=== PATIENT | male | born 1960 | race Caucasian/White ===

== ENCOUNTER 2017-10-03 15:42 | Emergency (ER) | payer OTHER ==
[2017-10-03] MEDS ORDERED: ROCURONIUM BROMIDE 50 MG/5 ML VIAL (15:43)
[2017-10-03] MEDS ORDERED: LIDOCAINE 2% INJ 100 MG/5 ML SYRINGE (15:43)
[2017-10-03] MEDS ORDERED: ETOMIDATE INJ 20MG/10ML VIAL (15:43)
[2017-10-03] MEDS ORDERED: SUCCINYLCHOLINE 100 MG/5 ML SYRINGE (J0330) (15:43)
[2017-10-03 16:00] LABS: BASO # 0.1 10^3/uL (0.0-0.2); BASO % 0.7 % (0.0-1.0); EOS % 0.2 % (0.0-3.0); HEMATOCRIT 44.4 % (42.0-52.0); HEMOGLOBIN 14.7 g/dl (13.5-17.5); IMMATURE GRANULOCYTE % 1.8 % (0-3.0); LYMPH # 1.6 10^3/uL (1.5-4.5); LYMPH % 13.2 % (24.0-44.0); MEAN CORPUSCULAR HEMOGLOBIN 31.7 pg (27.0-33.0); MEAN CORPUSCULAR HGB CONC 33.1 g/dl (32.0-36.5); MEAN CORPUSCULAR VOLUME 95.7 fl (80.0-96.0); MONO # 1.3 10^3/uL (0.0-0.8); MONO % 10.8 % (0.0-5.0); NEUTROPHILS # 8.9 10^3/uL (1.8-7.7); NEUTROPHILS % 73.3 % (36.0-66.0); PLATELET COUNT, AUTOMATED 502 10^3/uL (150-450); RED BLOOD COUNT 4.64 10^6/uL (4.30-6.10); RED CELL DISTRIBUTION WIDTH 13.1 % (11.5-14.5); WHITE BLOOD COUNT 12.2 10^3/uL (4.0-10.0)
[2017-10-03] MEDS: LORazepam 2 MG/ML VIAL (J2060) IV (16:04)
[2017-10-03] MEDS: PHENYTOIN INJ 250 MG/5 ML VIAL (J1165) IV (16:07)
[2017-10-03 16:16] LABS: BEDSIDE GLUCOSE 235 MG/DL (70-105)
[2017-10-03 16:22] LABS: INR 1.05; PARTIAL THROMBOPLASTIN TIME 24.4 SECONDS (25.4-37.6); PROTHROMBIN TIME 13.8 SECONDS (12.1-14.4)
[2017-10-03 16:23] LABS: ABG BASE EXCESS -7.6 (-2.0-2.0); ABG HCO3 15.9 MEQ/L (22.0-26.0); ABG O2 SATURATION 97.4 % (95.0-99.0); ABG PARTIAL PRESSURE CO2 27.7 mmHg (35.0-45.0); ABG STANDARD HCO3 18.4 MEQ/L (22.0-26.0); ABG TOTAL CO2 16.8 MEQ/L (22.0-29.0); ABG pH (ARTERIAL) 7.377 UNITS (7.350-7.450)
[2017-10-03 16:26] LABS: ALBUMIN 3.8 GM/DL (3.2-5.2); ALBUMIN/GLOBULIN RATIO 0.84 (1.00-1.93); ALKALINE PHOSPHATASE 123 U/L (45-117); ALT/SGPT 54 U/L (12-78); ANION GAP 27 MEQ/L (8-16); AST/SGOT 33 U/L (7-37); BILIRUBIN,DIRECT 0.5 MG/DL (0.0-0.2); BILIRUBIN,TOTAL 1.3 MG/DL (0.2-1.0); BLOOD UREA NITROGEN 30 MG/DL (7-18); CALCIUM LEVEL 10.5 MG/DL (8.5-10.1); CARBON DIOXIDE LEVEL 16 MEQ/L (21-32); CHLORIDE LEVEL 98 MEQ/L (98-107); CREATININE FOR GFR 1.57 MG/DL (0.70-1.30); ETHYL ALCOHOL (ETHANOL) < 0.003 % (0.000-0.010); GLOMERULAR FILTRATION RATE 49.3 (>56); GLUCOSE, FASTING 236 MG/DL (70-100); MAGNESIUM LEVEL 2.3 MG/DL (1.8-2.4); POTASSIUM SERUM 3.3 MEQ/L (3.5-5.1); SODIUM LEVEL 141 MEQ/L (136-145); TOTAL PROTEIN 8.3 GM/DL (6.4-8.2)
[2017-10-03 16:38] LABS: SALICYLATE LEVEL < 1.7 MG/DL (5.0-30.0)
[2017-10-03 16:39] LABS: ACETAMINOPHEN LEVEL < 2.0 UG/ML (10.0-30.0)
[2017-10-03] MEDS: ETOMIDATE INJ 20MG/10ML VIAL IV (16:40)
[2017-10-03] MEDS: LIDOCAINE 2% INJ 100 MG/5 ML SYRINGE IV (16:40)
[2017-10-03 16:41] LABS: APPEARANCE, URINE HAZY (CLEAR); BACTERIA, URINE AUTO NEGATIVE (NEGATIVE); BILIRUBIN, URINE AUTO NEGATIVE (NEGATIVE); BLOOD, URINE BLOOD 1+ (NEGATIVE); COLOR, URINE AMBER (YELLOW); GLUCOSE, URINE (UA) AUTO 1+ mg/dL (NEGATIVE); KETONE, URINE AUTO 1+ mg/dL (NEGATIVE); LEUKOCYTE ESTERASE, URINE AUTO NEGATIVE (NEGATIVE); MUCUS, URINE LARGE (NEGATIVE); NITRITE, URINE AUTO NEGATIVE (NEGATIVE); PROTEIN, URINE AUTO 2+ mg/dL (NEGATIVE); RBC, URINE AUTO 3 /HPF (0-3); SPECIFIC GRAVITY URINE AUTO 1.028 (1.002-1.035); SQUAMOUS EPITHELIAL CELL UR AU 0 /HPF (0-6); WBC, URINE AUTO 8 /HPF (0-3)
[2017-10-03] MEDS: SUCCINYLCHOLINE INJ 200 MG/10 ML VIAL (J0330) IV (16:41)
[2017-10-03 16:44] LABS: LACTIC ACID SEPSIS PROTOCOL 18.3 MMOL/L (0.4-2.0)
[2017-10-03] MEDS ORDERED: ROCURONIUM BROMIDE 50 MG/5 ML VIAL IV (16:45)
[2017-10-03 16:49] LABS: AMPHETAMINES LEVEL URINE NEGATIVE (NEGATIVE); BARBITURATES URINE NEGATIVE (NEGATIVE); BENZODIAZEPINES URINE NEGATIVE (NEGATIVE); CANNABINOIDS URINE NEGATIVE (NEGATIVE); COCAINE METABOLITE URINE NEGATIVE (NEGATIVE); METHADONE URINE NEGATIVE (NEGATIVE); OPIATES URINE NEGATIVE (NEGATIVE); PHENCYCLIDINE URINE NEGATIVE (NEGATIVE)
[2017-10-03] MEDS: NS 1,000 ML IV (17:00)
[2017-10-03 17:03] LABS: CPK CREATINE PHOSPHOKINASE 36 U/L (39-308)
[2017-10-03] MEDS: PROPOFOL 1,000 MG in APPROPRIATE DILUENT 1 EA IV (17:17)
[2017-10-03 17:56] LABS: ABG BASE EXCESS 3.6 (-2.0-2.0); ABG HCO3 24.5 MEQ/L (22.0-26.0); ABG O2 SATURATION 98.1 % (95.0-99.0); ABG PARTIAL PRESSURE O2 92.2 mmHg (75.0-100.0); ABG STANDARD HCO3 27.7 MEQ/L (22.0-26.0); ABG TOTAL CO2 25.3 MEQ/L (22.0-29.0); ABG pH (ARTERIAL) 7.575 UNITS (7.350-7.450)
== END 2017-10-03 18:18 | disposition short-term general hospital (02) ==
LOC: M ED 15:42
DX: S06.5X9A Traumatic subdural hemorrhage with loss of consciousness of unspecified duration, initial encounter (principal); S02.19XA Other fracture of base of skull, initial encounter for closed fracture; G40.319 Generalized idiopathic epilepsy and epileptic syndromes, intractable, without status epilepticus; X58.XXXA Exposure to other specified factors, initial encounter; Y92.89 Other specified places as the place of occurrence of the external cause; R00.0 Tachycardia, unspecified; F10.20 Alcohol dependence, uncomplicated; F32.9 Major depressive disorder, single episode, unspecified; F17.200 Nicotine dependence, unspecified, uncomplicated; Z79.899 Other long term (current) drug therapy
CPT/HCPCS: J0330

== ENCOUNTER 2017-10-09 17:30 | Inpatient (IN) | payer OTHER ==
[2017-10-09] MEDS ORDERED: LORazepam 2 MG TAB PO (17:45)
[2017-10-09 18:14] LABS: BASO # 0.1 10^3/uL (0.0-0.2); BASO % 1.2 % (0.0-1.0); EOS # 0.1 10^3/uL (0.0-0.50); EOS % 1.4 % (0.0-3.0); HEMATOCRIT 37.8 % (42.0-52.0); HEMOGLOBIN 12.7 g/dl (13.5-17.5); IMMATURE GRANULOCYTE % 3.9 % (0-3.0); LYMPH # 1.3 10^3/uL (1.5-4.5); LYMPH % 14.9 % (24.0-44.0); MEAN CORPUSCULAR HEMOGLOBIN 31.4 pg (27.0-33.0); MEAN CORPUSCULAR HGB CONC 33.6 g/dl (32.0-36.5); MEAN CORPUSCULAR VOLUME 93.3 fl (80.0-96.0); MONO # 0.6 10^3/uL (0.0-0.8); MONO % 7.2 % (0.0-5.0); NEUTROPHILS % 71.4 % (36.0-66.0); PLATELET COUNT, AUTOMATED 452 10^3/uL (150-450); RED BLOOD COUNT 4.05 10^6/uL (4.30-6.10); RED CELL DISTRIBUTION WIDTH 13.3 % (11.5-14.5); WHITE BLOOD COUNT 8.4 10^3/uL (4.0-10.0)
[2017-10-09] MEDS: THIAMINE 100 MG TAB PO (18:26)
[2017-10-09 18:37] LABS: ALBUMIN 2.9 GM/DL (3.2-5.2); ALBUMIN/GLOBULIN RATIO 0.73 (1.00-1.93); ALKALINE PHOSPHATASE 106 U/L (45-117); ALT/SGPT 38 U/L (12-78); ANION GAP 9 MEQ/L (8-16); AST/SGOT 35 U/L (7-37); BILIRUBIN,TOTAL 0.4 MG/DL (0.2-1.0); BLOOD UREA NITROGEN 14 MG/DL (7-18); CALCIUM LEVEL 9.3 MG/DL (8.5-10.1); CARBON DIOXIDE LEVEL 27 MEQ/L (21-32); CHLORIDE LEVEL 100 MEQ/L (98-107); CREATININE FOR GFR 0.83 MG/DL (0.70-1.30); GLOMERULAR FILTRATION RATE > 60.0 (>56); GLUCOSE, FASTING 89 MG/DL (70-100); POTASSIUM SERUM 4.8 MEQ/L (3.5-5.1); SODIUM LEVEL 136 MEQ/L (136-145); TOTAL PROTEIN 6.9 GM/DL (6.4-8.2)
[2017-10-09] MEDS: OXAZEPAM 10 MG CAP PO (21:43)
[2017-10-09] MEDS ORDERED: SODIUM CHLORIDE 0.9% INJ 10 ML SYR IV (23:00)
[2017-10-10] MEDS: SODIUM CHLORIDE 0.9% INJ 10 ML SYR IV ×2 (06:00→16:44)
[2017-10-10 06:24] LABS: BASO # 0.1 10^3/uL (0.0-0.2); EOS # 0.1 10^3/uL (0.0-0.50); EOS % 1.4 % (0.0-3.0); HEMATOCRIT 36.1 % (42.0-52.0); HEMOGLOBIN 12.2 g/dl (13.5-17.5); IMMATURE GRANULOCYTE % 4.3 % (0-3.0); LYMPH # 0.9 10^3/uL (1.5-4.5); LYMPH % 12.2 % (24.0-44.0); MEAN CORPUSCULAR HEMOGLOBIN 30.8 pg (27.0-33.0); MEAN CORPUSCULAR HGB CONC 33.8 g/dl (32.0-36.5); MEAN CORPUSCULAR VOLUME 91.2 fl (80.0-96.0); MONO # 0.5 10^3/uL (0.0-0.8); MONO % 7.1 % (0.0-5.0); NEUTROPHILS # 5.6 10^3/uL (1.8-7.7); PLATELET COUNT, AUTOMATED 386 10^3/uL (150-450); RED BLOOD COUNT 3.96 10^6/uL (4.30-6.10); RED CELL DISTRIBUTION WIDTH 13.2 % (11.5-14.5); WHITE BLOOD COUNT 7.6 10^3/uL (4.0-10.0)
[2017-10-10 06:49] LABS: ALBUMIN 2.9 GM/DL (3.2-5.2); ALBUMIN/GLOBULIN RATIO 0.73 (1.00-1.93); ALKALINE PHOSPHATASE 106 U/L (45-117); ALT/SGPT 37 U/L (12-78); ANION GAP 10 MEQ/L (8-16); AST/SGOT 35 U/L (7-37); BILIRUBIN,TOTAL 0.5 MG/DL (0.2-1.0); BLOOD UREA NITROGEN 14 MG/DL (7-18); CALCIUM LEVEL 9.2 MG/DL (8.5-10.1); CARBON DIOXIDE LEVEL 26 MEQ/L (21-32); CHLORIDE LEVEL 99 MEQ/L (98-107); GLOMERULAR FILTRATION RATE > 60.0 (>56); GLUCOSE, FASTING 102 MG/DL (70-100); POTASSIUM SERUM 4.2 MEQ/L (3.5-5.1); SODIUM LEVEL 135 MEQ/L (136-145); TOTAL PROTEIN 6.9 GM/DL (6.4-8.2)
[2017-10-10] MEDS ORDERED: levETIRAcetam INJection 1,000 MG in D5W 100 ML IV (09:00)
[2017-10-10] MEDS: OXAZEPAM 10 MG CAP PO ×3 (09:19→21:14)
[2017-10-10] MEDS: MULTIVITAMINS/MINERALS THERAP 1 TAB PO (09:19)
[2017-10-10] MEDS: FOLIC ACID 1 MG TAB PO (09:19)
[2017-10-10] MEDS: amLODIPine 10 MG TAB PO (09:19)
[2017-10-10] MEDS: VALPROIC ACID SYRUP 250 MG/5 ML UDC PO ×2 (09:20→21:23)
[2017-10-10] MEDS: TOPIRAMATE (TopAMAX) 25 MG TAB PO ×2 (09:20→21:14)
[2017-10-10] MEDS: SENNA 8.6 MG TAB (SENOKOT) PO ×2 (09:20→21:14)
[2017-10-10] MEDS: BISACODYL 10 MG SUPP PR (09:20)
[2017-10-10] MEDS: THIAMINE 100 MG TAB PO ×2 (09:20→21:14)
[2017-10-10] MEDS: PANTOPRAZOLE 40MG TAB (PROTONIX) PO (09:20)
[2017-10-10] MEDS: ENOXAPARIN 40 MG/0.4 ML SYRINGE (J1650) SC (11:59)
[2017-10-10] MEDS: levETIRAcetam ORAL SOLUTION 500 MG/5 ML UDC PO ×2 (11:59→21:14)
[2017-10-11] MEDS: SODIUM CHLORIDE 0.9% INJ 10 ML SYR IV (05:25)
[2017-10-11] MEDS ORDERED: MOM 30ML SUSPENSION UDC PO (06:15)
[2017-10-11] MEDS: SENNA 8.6 MG TAB (SENOKOT) PO ×2 (08:31→20:28)
[2017-10-11] MEDS: TOPIRAMATE (TopAMAX) 25 MG TAB PO ×2 (08:32→21:04)
[2017-10-11] MEDS: OXAZEPAM 10 MG CAP PO ×2 (08:32→21:05)
[2017-10-11] MEDS: amLODIPine 10 MG TAB PO (08:32)
[2017-10-11] MEDS: THIAMINE 100 MG TAB PO ×2 (08:32→21:05)
[2017-10-11] MEDS: MULTIVITAMINS/MINERALS THERAP 1 TAB PO (08:32)
[2017-10-11] MEDS: PANTOPRAZOLE 40MG TAB (PROTONIX) PO (08:32)
[2017-10-11] MEDS: FOLIC ACID 1 MG TAB PO (08:32)
[2017-10-11] MEDS: ENOXAPARIN 40 MG/0.4 ML SYRINGE (J1650) SC (08:33)
[2017-10-11] MEDS: BISACODYL 10 MG SUPP PR ×2 (08:33→09:00)
[2017-10-11] MEDS: levETIRAcetam ORAL SOLUTION 500 MG/5 ML UDC PO ×2 (08:37→21:05)
[2017-10-11] MEDS: VALPROIC ACID SYRUP 250 MG/5 ML UDC PO ×2 (08:37→21:05)
[2017-10-11] MEDS: INFLUENZA QUADRIVALENT PF VACCINE 0.5ML SYRINGE (90686) IM (08:39)
[2017-10-12 06:19] LABS: BASO # 0.1 10^3/uL (0.0-0.2); BASO % 1.5 % (0.0-1.0); EOS # 0.1 10^3/uL (0.0-0.50); HEMATOCRIT 39.2 % (42.0-52.0); HEMOGLOBIN 13.1 g/dl (13.5-17.5); IMMATURE GRANULOCYTE % 3.6 % (0-3.0); LYMPH # 1.1 10^3/uL (1.5-4.5); LYMPH % 16.7 % (24.0-44.0); MEAN CORPUSCULAR HGB CONC 33.4 g/dl (32.0-36.5); MEAN CORPUSCULAR VOLUME 92.9 fl (80.0-96.0); MONO # 0.6 10^3/uL (0.0-0.8); MONO % 8.8 % (0.0-5.0); NEUTROPHILS # 4.4 10^3/uL (1.8-7.7); NEUTROPHILS % 67.4 % (36.0-66.0); PLATELET COUNT, AUTOMATED 415 10^3/uL (150-450); RED BLOOD COUNT 4.22 10^6/uL (4.30-6.10); RED CELL DISTRIBUTION WIDTH 13.2 % (11.5-14.5); WHITE BLOOD COUNT 6.5 10^3/uL (4.0-10.0)
[2017-10-12 06:54] LABS: ANION GAP 7 MEQ/L (8-16); BLOOD UREA NITROGEN 15 MG/DL (7-18); CALCIUM LEVEL 9.9 MG/DL (8.5-10.1); CARBON DIOXIDE LEVEL 27 MEQ/L (21-32); CHLORIDE LEVEL 101 MEQ/L (98-107); CREATININE FOR GFR 0.98 MG/DL (0.70-1.30); GLOMERULAR FILTRATION RATE > 60.0 (>56); GLUCOSE, FASTING 101 MG/DL (70-100); POTASSIUM SERUM 3.6 MEQ/L (3.5-5.1); SODIUM LEVEL 135 MEQ/L (136-145)
[2017-10-12] MEDS: BISACODYL 10 MG SUPP PR (08:35)
[2017-10-12] MEDS: VALPROIC ACID SYRUP 250 MG/5 ML UDC PO ×2 (08:43→21:59)
[2017-10-12] MEDS: FOLIC ACID 1 MG TAB PO (08:43)
[2017-10-12] MEDS: TOPIRAMATE (TopAMAX) 25 MG TAB PO ×2 (08:43→22:01)
[2017-10-12] MEDS: amLODIPine 10 MG TAB PO (08:43)
[2017-10-12] MEDS: OXAZEPAM 10 MG CAP PO ×2 (08:43→22:01)
[2017-10-12] MEDS: PANTOPRAZOLE 40MG TAB (PROTONIX) PO (08:43)
[2017-10-12] MEDS: levETIRAcetam ORAL SOLUTION 500 MG/5 ML UDC PO ×2 (08:43→21:58)
[2017-10-12] MEDS: THIAMINE 100 MG TAB PO (08:43)
[2017-10-12] MEDS: MULTIVITAMINS/MINERALS THERAP 1 TAB PO (08:43)
[2017-10-12] MEDS: ENOXAPARIN 40 MG/0.4 ML SYRINGE (J1650) SC (08:44)
[2017-10-12] MEDS: SENNA 8.6 MG TAB (SENOKOT) PO ×2 (09:00→22:00)
[2017-10-13 06:01] LABS: BASO # 0.1 10^3/uL (0.0-0.2); BASO % 1.3 % (0.0-1.0); EOS # 0.2 10^3/uL (0.0-0.50); EOS % 2.4 % (0.0-3.0); HEMATOCRIT 38.8 % (42.0-52.0); HEMOGLOBIN 13.3 g/dl (13.5-17.5); IMMATURE GRANULOCYTE % 2.9 % (0-3.0); LYMPH # 1.1 10^3/uL (1.5-4.5); LYMPH % 18.6 % (24.0-44.0); MEAN CORPUSCULAR HEMOGLOBIN 31.6 pg (27.0-33.0); MEAN CORPUSCULAR HGB CONC 34.3 g/dl (32.0-36.5); MEAN CORPUSCULAR VOLUME 92.2 fl (80.0-96.0); MONO # 0.5 10^3/uL (0.0-0.8); NEUTROPHILS # 4.1 10^3/uL (1.8-7.7); NEUTROPHILS % 66.8 % (36.0-66.0); PLATELET COUNT, AUTOMATED 401 10^3/uL (150-450); RED BLOOD COUNT 4.21 10^6/uL (4.30-6.10); RED CELL DISTRIBUTION WIDTH 13.1 % (11.5-14.5); WHITE BLOOD COUNT 6.1 10^3/uL (4.0-10.0)
[2017-10-13 06:21] LABS: ANION GAP 10 MEQ/L (8-16); BLOOD UREA NITROGEN 15 MG/DL (7-18); CALCIUM LEVEL 9.6 MG/DL (8.5-10.1); CARBON DIOXIDE LEVEL 25 MEQ/L (21-32); CHLORIDE LEVEL 103 MEQ/L (98-107); CREATININE FOR GFR 0.99 MG/DL (0.70-1.30); GLOMERULAR FILTRATION RATE > 60.0 (>56); GLUCOSE, FASTING 101 MG/DL (70-100); POTASSIUM SERUM 3.7 MEQ/L (3.5-5.1); SODIUM LEVEL 138 MEQ/L (136-145)
[2017-10-13] MEDS: SENNA 8.6 MG TAB (SENOKOT) PO ×2 (09:00→20:32)
[2017-10-13] MEDS: MULTIVITAMINS/MINERALS THERAP 1 TAB PO (10:03)
[2017-10-13] MEDS: OXAZEPAM 10 MG CAP PO ×2 (10:03→20:32)
[2017-10-13] MEDS: TOPIRAMATE (TopAMAX) 25 MG TAB PO ×2 (10:03→20:32)
[2017-10-13] MEDS: PANTOPRAZOLE 40MG TAB (PROTONIX) PO (10:03)
[2017-10-13] MEDS: levETIRAcetam ORAL SOLUTION 500 MG/5 ML UDC PO ×2 (10:04→20:31)
[2017-10-13] MEDS: amLODIPine 10 MG TAB PO (10:04)
[2017-10-13] MEDS: VALPROIC ACID SYRUP 250 MG/5 ML UDC PO ×2 (10:04→20:32)
[2017-10-13] MEDS: FOLIC ACID 1 MG TAB PO (10:04)
[2017-10-13] MEDS: ENOXAPARIN 40 MG/0.4 ML SYRINGE (J1650) SC (10:05)
[2017-10-13] MEDS: CETIRIZINE (ZyrTEC) 10 MG TAB PO (20:32)
[2017-10-14 06:11] LABS: BASO # 0.1 10^3/uL (0.0-0.2); BASO % 1.4 % (0.0-1.0); EOS # 0.2 10^3/uL (0.0-0.50); EOS % 2.6 % (0.0-3.0); HEMOGLOBIN 13.2 g/dl (13.5-17.5); LYMPH # 1.3 10^3/uL (1.5-4.5); LYMPH % 19.8 % (24.0-44.0); MEAN CORPUSCULAR HEMOGLOBIN 31.2 pg (27.0-33.0); MEAN CORPUSCULAR HGB CONC 33.8 g/dl (32.0-36.5); MEAN CORPUSCULAR VOLUME 92.2 fl (80.0-96.0); MONO # 0.5 10^3/uL (0.0-0.8); MONO % 7.6 % (0.0-5.0); NEUTROPHILS # 4.3 10^3/uL (1.8-7.7); NEUTROPHILS % 66.6 % (36.0-66.0); PLATELET COUNT, AUTOMATED 376 10^3/uL (150-450); RED BLOOD COUNT 4.23 10^6/uL (4.30-6.10); RED CELL DISTRIBUTION WIDTH 13.1 % (11.5-14.5); WHITE BLOOD COUNT 6.4 10^3/uL (4.0-10.0)
[2017-10-14 06:32] LABS: ANION GAP 11 MEQ/L (8-16); BLOOD UREA NITROGEN 16 MG/DL (7-18); CALCIUM LEVEL 9.9 MG/DL (8.5-10.1); CARBON DIOXIDE LEVEL 26 MEQ/L (21-32); CHLORIDE LEVEL 103 MEQ/L (98-107); CREATININE FOR GFR 0.99 MG/DL (0.70-1.30); GLOMERULAR FILTRATION RATE > 60.0 (>56); GLUCOSE, FASTING 97 MG/DL (70-100); SODIUM LEVEL 140 MEQ/L (136-145)
[2017-10-14] MEDS: SENNA 8.6 MG TAB (SENOKOT) PO ×2 (09:23→20:42)
[2017-10-14] MEDS: TOPIRAMATE (TopAMAX) 25 MG TAB PO ×2 (09:23→20:41)
[2017-10-14] MEDS: FOLIC ACID 1 MG TAB PO (09:23)
[2017-10-14] MEDS: OXAZEPAM 10 MG CAP PO ×2 (09:23→20:41)
[2017-10-14] MEDS: PANTOPRAZOLE 40MG TAB (PROTONIX) PO (09:24)
[2017-10-14] MEDS: amLODIPine 10 MG TAB PO (09:24)
[2017-10-14] MEDS: MULTIVITAMINS/MINERALS THERAP 1 TAB PO (09:25)
[2017-10-14] MEDS: ENOXAPARIN 40 MG/0.4 ML SYRINGE (J1650) SC (09:25)
[2017-10-14] MEDS: VALPROIC ACID SYRUP 250 MG/5 ML UDC PO ×2 (09:25→20:42)
[2017-10-14] MEDS: levETIRAcetam ORAL SOLUTION 500 MG/5 ML UDC PO ×2 (09:25→20:43)
[2017-10-14] MEDS: predniSONE 10 MG TAB PO (15:15)
[2017-10-14] MEDS: CETIRIZINE (ZyrTEC) 10 MG TAB PO (20:42)
[2017-10-15 06:44] LABS: BASO # 0.1 10^3/uL (0.0-0.2); BASO % 0.5 % (0.0-1.0); EOS # 0.2 10^3/uL (0.0-0.50); EOS % 1.6 % (0.0-3.0); HEMATOCRIT 39.3 % (42.0-52.0); HEMOGLOBIN 13.2 g/dl (13.5-17.5); IMMATURE GRANULOCYTE % 0.8 % (0-3.0); LYMPH # 0.9 10^3/uL (1.5-4.5); LYMPH % 9.8 % (24.0-44.0); MEAN CORPUSCULAR HEMOGLOBIN 31.3 pg (27.0-33.0); MEAN CORPUSCULAR HGB CONC 33.6 g/dl (32.0-36.5); MEAN CORPUSCULAR VOLUME 93.1 fl (80.0-96.0); MONO # 0.3 10^3/uL (0.0-0.8); MONO % 3.4 % (0.0-5.0); NEUTROPHILS # 7.9 10^3/uL (1.8-7.7); NEUTROPHILS % 83.9 % (36.0-66.0); PLATELET COUNT, AUTOMATED 420 10^3/uL (150-450); RED BLOOD COUNT 4.22 10^6/uL (4.30-6.10); RED CELL DISTRIBUTION WIDTH 13.1 % (11.5-14.5); WHITE BLOOD COUNT 9.5 10^3/uL (4.0-10.0)
[2017-10-15 06:58] LABS: ANION GAP 10 MEQ/L (8-16); BLOOD UREA NITROGEN 14 MG/DL (7-18); CALCIUM LEVEL 10.3 MG/DL (8.5-10.1); CARBON DIOXIDE LEVEL 25 MEQ/L (21-32); CHLORIDE LEVEL 104 MEQ/L (98-107); CREATININE FOR GFR 1.02 MG/DL (0.70-1.30); GLOMERULAR FILTRATION RATE > 60.0 (>56); GLUCOSE, FASTING 118 MG/DL (70-100); POTASSIUM SERUM 4.5 MEQ/L (3.5-5.1); SODIUM LEVEL 139 MEQ/L (136-145)
[2017-10-15] MEDS: VALPROIC ACID SYRUP 250 MG/5 ML UDC PO ×2 (08:54→20:20)
[2017-10-15] MEDS: FOLIC ACID 1 MG TAB PO (08:55)
[2017-10-15] MEDS: PANTOPRAZOLE 40MG TAB (PROTONIX) PO (08:55)
[2017-10-15] MEDS: amLODIPine 10 MG TAB PO (08:55)
[2017-10-15] MEDS: MULTIVITAMINS/MINERALS THERAP 1 TAB PO (08:55)
[2017-10-15] MEDS: SENNA 8.6 MG TAB (SENOKOT) PO ×2 (08:55→20:20)
[2017-10-15] MEDS: TOPIRAMATE (TopAMAX) 25 MG TAB PO ×2 (08:55→20:19)
[2017-10-15] MEDS: OXAZEPAM 10 MG CAP PO ×2 (08:55→20:20)
[2017-10-15] MEDS: ENOXAPARIN 40 MG/0.4 ML SYRINGE (J1650) SC (08:56)
[2017-10-15] MEDS: levETIRAcetam ORAL SOLUTION 500 MG/5 ML UDC PO ×2 (08:56→20:20)
[2017-10-15] MEDS: THIAMINE 100 MG TAB PO (11:06)
[2017-10-15] MEDS: CETIRIZINE (ZyrTEC) 10 MG TAB PO (20:19)
[2017-10-16 06:35] LABS: BASO % 0.6 % (0.0-1.0); EOS # 0.3 10^3/uL (0.0-0.50); EOS % 4.1 % (0.0-3.0); HEMATOCRIT 35.3 % (42.0-52.0); HEMOGLOBIN 11.9 g/dl (13.5-17.5); IMMATURE GRANULOCYTE % 1.7 % (0-3.0); LYMPH # 1.2 10^3/uL (1.5-4.5); LYMPH % 18.3 % (24.0-44.0); MEAN CORPUSCULAR HEMOGLOBIN 31.1 pg (27.0-33.0); MEAN CORPUSCULAR HGB CONC 33.7 g/dl (32.0-36.5); MEAN CORPUSCULAR VOLUME 92.2 fl (80.0-96.0); MONO # 0.5 10^3/uL (0.0-0.8); MONO % 7.7 % (0.0-5.0); NEUTROPHILS # 4.3 10^3/uL (1.8-7.7); NEUTROPHILS % 67.6 % (36.0-66.0); PLATELET COUNT, AUTOMATED 321 10^3/uL (150-450); RED BLOOD COUNT 3.83 10^6/uL (4.30-6.10); RED CELL DISTRIBUTION WIDTH 13.2 % (11.5-14.5); WHITE BLOOD COUNT 6.4 10^3/uL (4.0-10.0)
[2017-10-16 06:56] LABS: ANION GAP 10 MEQ/L (8-16); BLOOD UREA NITROGEN 16 MG/DL (7-18); CARBON DIOXIDE LEVEL 25 MEQ/L (21-32); CHLORIDE LEVEL 106 MEQ/L (98-107); CREATININE FOR GFR 1.09 MG/DL (0.70-1.30); GLOMERULAR FILTRATION RATE > 60.0 (>56); GLUCOSE, FASTING 86 MG/DL (70-100); POTASSIUM SERUM 3.5 MEQ/L (3.5-5.1); SODIUM LEVEL 141 MEQ/L (136-145)
[2017-10-16] MEDS: MULTIVITAMINS/MINERALS THERAP 1 TAB PO (08:59)
[2017-10-16] MEDS: FOLIC ACID 1 MG TAB PO (08:59)
[2017-10-16] MEDS: THIAMINE 100 MG TAB PO (08:59)
[2017-10-16] MEDS: TOPIRAMATE (TopAMAX) 25 MG TAB PO ×2 (08:59→20:02)
[2017-10-16] MEDS: amLODIPine 10 MG TAB PO (09:01)
[2017-10-16] MEDS: levETIRAcetam ORAL SOLUTION 500 MG/5 ML UDC PO ×2 (09:01→20:02)
[2017-10-16] MEDS: OXAZEPAM 10 MG CAP PO (09:01)
[2017-10-16] MEDS: SENNA 8.6 MG TAB (SENOKOT) PO ×2 (09:01→20:03)
[2017-10-16] MEDS: PANTOPRAZOLE 40MG TAB (PROTONIX) PO (09:01)
[2017-10-16] MEDS: VALPROIC ACID SYRUP 250 MG/5 ML UDC PO ×2 (09:01→20:02)
[2017-10-16] MEDS: ENOXAPARIN 40 MG/0.4 ML SYRINGE (J1650) SC (09:02)
[2017-10-16] MEDS ORDERED: NICOTINE 7 MG/24 HR TRANSDERMAL TD (18:00)
[2017-10-16] MEDS: CETIRIZINE (ZyrTEC) 10 MG TAB PO (20:03)
[2017-10-17 08:47] LABS: HEMATOCRIT 37.5 % (42.0-52.0); HEMOGLOBIN 12.4 g/dl (13.5-17.5); MEAN CORPUSCULAR HEMOGLOBIN 31.2 pg (27.0-33.0); MEAN CORPUSCULAR HGB CONC 33.1 g/dl (32.0-36.5); MEAN CORPUSCULAR VOLUME 94.2 fl (80.0-96.0); PLATELET COUNT, AUTOMATED 324 10^3/uL (150-450); RED BLOOD COUNT 3.98 10^6/uL (4.30-6.10); RED CELL DISTRIBUTION WIDTH 13.2 % (11.5-14.5); WHITE BLOOD COUNT 6.1 10^3/uL (4.0-10.0)
[2017-10-17 08:52] LABS: ANION GAP 9 MEQ/L (8-16); BLOOD UREA NITROGEN 11 MG/DL (7-18); CALCIUM LEVEL 9.2 MG/DL (8.5-10.1); CARBON DIOXIDE LEVEL 26 MEQ/L (21-32); CHLORIDE LEVEL 108 MEQ/L (98-107); CREATININE FOR GFR 0.99 MG/DL (0.70-1.30); GLOMERULAR FILTRATION RATE > 60.0 (>56); GLUCOSE, FASTING 86 MG/DL (70-100); POTASSIUM SERUM 4.2 MEQ/L (3.5-5.1); SODIUM LEVEL 143 MEQ/L (136-145)
[2017-10-17] MEDS: FOLIC ACID 1 MG TAB PO (08:55)
[2017-10-17] MEDS: levETIRAcetam ORAL SOLUTION 500 MG/5 ML UDC PO ×2 (08:55→20:17)
[2017-10-17] MEDS: VALPROIC ACID SYRUP 250 MG/5 ML UDC PO ×2 (08:55→20:18)
[2017-10-17] MEDS: amLODIPine 10 MG TAB PO (08:56)
[2017-10-17] MEDS: TOPIRAMATE (TopAMAX) 25 MG TAB PO ×2 (08:56→20:17)
[2017-10-17] MEDS: PANTOPRAZOLE 40MG TAB (PROTONIX) PO (08:56)
[2017-10-17] MEDS: THIAMINE 100 MG TAB PO (08:56)
[2017-10-17] MEDS: SENNA 8.6 MG TAB (SENOKOT) PO ×2 (08:56→20:18)
[2017-10-17] MEDS: MULTIVITAMINS/MINERALS THERAP 1 TAB PO (08:56)
[2017-10-17] MEDS: ENOXAPARIN 40 MG/0.4 ML SYRINGE (J1650) SC (08:57)
[2017-10-17] MEDS: CETIRIZINE (ZyrTEC) 10 MG TAB PO (20:17)
[2017-10-18 06:23] LABS: BASO % 0.8 % (0.0-1.0); EOS # 0.3 10^3/uL (0.0-0.50); EOS % 6.5 % (0.0-3.0); HEMOGLOBIN 11.3 g/dl (13.5-17.5); LYMPH # 1.5 10^3/uL (1.5-4.5); LYMPH % 29.5 % (24.0-44.0); MEAN CORPUSCULAR HGB CONC 33.2 g/dl (32.0-36.5); MEAN CORPUSCULAR VOLUME 93.2 fl (80.0-96.0); MONO # 0.4 10^3/uL (0.0-0.8); MONO % 8.7 % (0.0-5.0); NEUTROPHILS # 2.7 10^3/uL (1.8-7.7); NEUTROPHILS % 53.5 % (36.0-66.0); PLATELET COUNT, AUTOMATED 253 10^3/uL (150-450); RED BLOOD COUNT 3.65 10^6/uL (4.30-6.10); RED CELL DISTRIBUTION WIDTH 13.2 % (11.5-14.5)
[2017-10-18 06:41] LABS: ANION GAP 11 MEQ/L (8-16); BLOOD UREA NITROGEN 13 MG/DL (7-18); CALCIUM LEVEL 9.1 MG/DL (8.5-10.1); CARBON DIOXIDE LEVEL 24 MEQ/L (21-32); CHLORIDE LEVEL 110 MEQ/L (98-107); CREATININE FOR GFR 0.91 MG/DL (0.70-1.30); GLOMERULAR FILTRATION RATE > 60.0 (>56); GLUCOSE, FASTING 87 MG/DL (70-100); POTASSIUM SERUM 3.6 MEQ/L (3.5-5.1); SODIUM LEVEL 145 MEQ/L (136-145)
[2017-10-18] MEDS: levETIRAcetam ORAL SOLUTION 500 MG/5 ML UDC PO ×2 (09:07→20:13)
[2017-10-18] MEDS: FOLIC ACID 1 MG TAB PO (09:08)
[2017-10-18] MEDS: SENNA 8.6 MG TAB (SENOKOT) PO ×2 (09:08→20:14)
[2017-10-18] MEDS: VALPROIC ACID SYRUP 250 MG/5 ML UDC PO ×2 (09:08→20:13)
[2017-10-18] MEDS: MULTIVITAMINS/MINERALS THERAP 1 TAB PO (09:09)
[2017-10-18] MEDS: amLODIPine 10 MG TAB PO (09:11)
[2017-10-18] MEDS: PANTOPRAZOLE 40MG TAB (PROTONIX) PO (09:11)
[2017-10-18] MEDS: TOPIRAMATE (TopAMAX) 25 MG TAB PO ×2 (09:11→20:13)
[2017-10-18] MEDS: THIAMINE 100 MG TAB PO (09:11)
[2017-10-18] MEDS: ENOXAPARIN 40 MG/0.4 ML SYRINGE (J1650) SC (09:12)
[2017-10-18] MEDS: CETIRIZINE (ZyrTEC) 10 MG TAB PO (20:13)
[2017-10-19 08:22] LABS: HEMATOCRIT 33.7 % (42.0-52.0); HEMOGLOBIN 11.2 g/dl (13.5-17.5); MEAN CORPUSCULAR HEMOGLOBIN 31.1 pg (27.0-33.0); MEAN CORPUSCULAR HGB CONC 33.2 g/dl (32.0-36.5); MEAN CORPUSCULAR VOLUME 93.6 fl (80.0-96.0); PLATELET COUNT, AUTOMATED 230 10^3/uL (150-450); RED CELL DISTRIBUTION WIDTH 13.2 % (11.5-14.5); WHITE BLOOD COUNT 4.9 10^3/uL (4.0-10.0)
[2017-10-19 08:43] LABS: ANION GAP 8 MEQ/L (8-16); BLOOD UREA NITROGEN 13 MG/DL (7-18); CALCIUM LEVEL 8.7 MG/DL (8.5-10.1); CARBON DIOXIDE LEVEL 25 MEQ/L (21-32); CHLORIDE LEVEL 111 MEQ/L (98-107); CREATININE FOR GFR 0.98 MG/DL (0.70-1.30); GLOMERULAR FILTRATION RATE > 60.0 (>56); GLUCOSE, FASTING 86 MG/DL (70-100); POTASSIUM SERUM 3.7 MEQ/L (3.5-5.1); SODIUM LEVEL 144 MEQ/L (136-145)
[2017-10-19] MEDS: SENNA 8.6 MG TAB (SENOKOT) PO ×3 (09:00→20:46)
[2017-10-19] MEDS: ENOXAPARIN 40 MG/0.4 ML SYRINGE (J1650) SC (09:10)
[2017-10-19] MEDS: VALPROIC ACID SYRUP 250 MG/5 ML UDC PO ×2 (09:10→20:46)
[2017-10-19] MEDS: levETIRAcetam ORAL SOLUTION 500 MG/5 ML UDC PO ×2 (09:10→20:47)
[2017-10-19] MEDS: TOPIRAMATE (TopAMAX) 25 MG TAB PO ×2 (09:11→20:47)
[2017-10-19] MEDS: FOLIC ACID 1 MG TAB PO (09:11)
[2017-10-19] MEDS: MULTIVITAMINS/MINERALS THERAP 1 TAB PO (09:11)
[2017-10-19] MEDS: THIAMINE 100 MG TAB PO (09:11)
[2017-10-19] MEDS: PANTOPRAZOLE 40MG TAB (PROTONIX) PO (09:11)
[2017-10-19] MEDS: amLODIPine 10 MG TAB PO (09:13)
[2017-10-19] MEDS: NYSTATIN 100,000 UNITS/GM TOPICAL PWD 15 GM TOP ×2 (11:10→20:47)
[2017-10-19] MEDS: CETIRIZINE (ZyrTEC) 10 MG TAB PO (20:46)
[2017-10-20] MEDS: levETIRAcetam ORAL SOLUTION 500 MG/5 ML UDC PO ×2 (09:10→20:33)
[2017-10-20] MEDS: VALPROIC ACID SYRUP 250 MG/5 ML UDC PO ×2 (09:10→20:34)
[2017-10-20] MEDS: THIAMINE 100 MG TAB PO (09:12)
[2017-10-20] MEDS: ENOXAPARIN 40 MG/0.4 ML SYRINGE (J1650) SC (09:12)
[2017-10-20] MEDS: MULTIVITAMINS/MINERALS THERAP 1 TAB PO (09:12)
[2017-10-20] MEDS: SENNA 8.6 MG TAB (SENOKOT) PO ×2 (09:12→20:34)
[2017-10-20] MEDS: FOLIC ACID 1 MG TAB PO (09:12)
[2017-10-20] MEDS: TOPIRAMATE (TopAMAX) 25 MG TAB PO ×2 (09:12→20:34)
[2017-10-20] MEDS: PANTOPRAZOLE 40MG TAB (PROTONIX) PO (09:13)
[2017-10-20] MEDS: NYSTATIN 100,000 UNITS/GM TOPICAL PWD 15 GM TOP ×2 (09:13→20:35)
[2017-10-20] MEDS: amLODIPine 10 MG TAB PO (09:15)
[2017-10-20] MEDS: CETIRIZINE (ZyrTEC) 10 MG TAB PO (20:34)
[2017-10-21] MEDS: levETIRAcetam ORAL SOLUTION 500 MG/5 ML UDC PO (09:55)
[2017-10-21] MEDS: PANTOPRAZOLE 40MG TAB (PROTONIX) PO (09:55)
[2017-10-21] MEDS: SENNA 8.6 MG TAB (SENOKOT) PO (09:55)
[2017-10-21] MEDS: TOPIRAMATE (TopAMAX) 25 MG TAB PO (09:55)
[2017-10-21] MEDS: FOLIC ACID 1 MG TAB PO (09:55)
[2017-10-21] MEDS: THIAMINE 100 MG TAB PO (09:55)
[2017-10-21] MEDS: VALPROIC ACID SYRUP 250 MG/5 ML UDC PO (09:55)
[2017-10-21] MEDS: MULTIVITAMINS/MINERALS THERAP 1 TAB PO (09:55)
[2017-10-21] MEDS: ENOXAPARIN 40 MG/0.4 ML SYRINGE (J1650) SC (09:56)
[2017-10-21] MEDS: NYSTATIN 100,000 UNITS/GM TOPICAL PWD 15 GM TOP (09:56)
[2017-10-21] MEDS: amLODIPine 10 MG TAB PO (09:58)
== END 2017-10-21 13:00 | disposition home or self-care (01) | DRG 898 ==
LOC: M MSPAV 17:30
DX: F10.231 Alcohol dependence with withdrawal delirium (principal); F32.9 Major depressive disorder, single episode, unspecified; I10 Essential (primary) hypertension; F41.9 Anxiety disorder, unspecified; R56.9 Unspecified convulsions; R21 Rash and other nonspecific skin eruption; R41.3 Other amnesia; S02.19XD Other fracture of base of skull, subsequent encounter for fracture with routine healing; Z79.899 Other long term (current) drug therapy; Z87.820 Personal history of traumatic brain injury; S06.330D Contusion and laceration of cerebrum, unspecified, without loss of consciousness, subsequent encounter; X58.XXXD Exposure to other specified factors, subsequent encounter; Y92.9 Unspecified place or not applicable; Y93.9 Activity, unspecified

== ENCOUNTER 2017-12-27 01:35 | Emergency (ER) | payer OTHER ==
[2017-12-27] MEDS: PHENobarbital INJ 65 MG/ML VIAL (J2560) IV (02:19)
[2017-12-27] MEDS: MULTIVITAMIN -ADULT INJECTION 10 ML, THIAMINE INJection 100 MG, FOLIC ACID 1 MG in NS 1... IV (02:30)
[2017-12-27 02:52] LABS: BEDSIDE GLUCOSE 157 MG/DL (70-105)
== END 2017-12-27 04:36 | disposition home or self-care (01) ==
LOC: M ED 01:35
DX: F10.230 Alcohol dependence with withdrawal, uncomplicated (principal); Z87.820 Personal history of traumatic brain injury
CPT/HCPCS: J2560

== ENCOUNTER 2018-05-06 10:54 | Inpatient (IN) | payer OTHER ==
[~2018-05-06] VITALS: Ht 185.4 cm; Wt 89.8 kg
[~2018-05-06 10:54] MED LIST: ACET1TAB55 PO; AMLO10TA5 PO; B-12100T2 PO; CELE10TA PO; CELE20TA PO; ENOX40IN3 SC; FOLI1TAB11 PO; HYDR-3363 PO; KEPP10002 PO; LISI-538 PO; MULT1TAB10 PO; NAPR1TAB86 PO; OXAZ10CA3 PO; PANT40TA3 PO; PROT1TAB2 PO; SENN15UDC PO; SENN18TA PO; SENN8.6T98 PO; THIA100TA PO; TOPI25TA10 PO; VALP25EL PO; [UNRECOGNIZED DRUG - CODE] IM; [UNRECOGNIZED DRUG - CODE] IV
[2018-05-06] MEDS ORDERED: ADACEL/BOOSTRIX VACCINE (DIPHTH/PERTUSS/ACELL/TETANUS)0.5ML SYR (90715) IM ONE (11:45)
[2018-05-06 11:49] LABS: BASO # 0.1 10^3/uL (0.0-0.2); BASO % 0.4 % (0.0-1.0); HEMATOCRIT 46.7 % (42.0-52.0); HEMOGLOBIN 15.4 g/dl (13.5-17.5); LYMPH # 0.7 10^3/uL (1.5-4.5); MEAN CORPUSCULAR HEMOGLOBIN 32.6 pg (27.0-33.0); MEAN CORPUSCULAR VOLUME 98.9 fl (80.0-96.0); MONO # 0.9 10^3/uL (0.0-0.8); MONO % 6.9 % (0.0-5.0); NEUTROPHILS # 10.6 10^3/uL (1.8-7.7); NEUTROPHILS % 85.6 % (36.0-66.0); PLATELET COUNT, AUTOMATED 182 10^3/uL (150-450); RED BLOOD COUNT 4.72 10^6/uL (4.30-6.10); WHITE BLOOD COUNT 12.4 10^3/uL (4.0-10.0)
[2018-05-06] MEDS ORDERED: ISOVUE-370 76% 125ML VIAL (Q9967 PER ML) As Ordered ONE (12:11)
[2018-05-06 12:14] LABS: AMPHETAMINES LEVEL URINE NEGATIVE (NEGATIVE); BARBITURATES URINE NEGATIVE (NEGATIVE); BENZODIAZEPINES URINE NEGATIVE (NEGATIVE); CANNABINOIDS URINE NEGATIVE (NEGATIVE); COCAINE METABOLITE URINE NEGATIVE (NEGATIVE); METHADONE URINE NEGATIVE (NEGATIVE); OPIATES URINE NEGATIVE (NEGATIVE); PHENCYCLIDINE URINE NEGATIVE (NEGATIVE)
--- NOTE | 2018-05-06 12:14 | REP ---
Chest one-view HISTORY: Fall Comparison: 10/03/2017 The lungs are clear. The heart is normal in size. The pulmonary vasculature is normal in appearance. Impression: No acute disease. Electronically Signed by Duran Hinkle MD 05/06/2018 12:06 P
--- NOTE | 2018-05-06 12:27 | REP ---
CT Head without contrast HISTORY: Fall COMPARISON: 12/27/2017 Areas of decreased attenuation are present in the frontal lobes and right temporal lobe. There is dilatation of the overlying cortical sulci. This represents encephalomalacia. Areas of decreased attenuation are present in the periventricular white matter. This represents small-vessel ischemic disease. There is no intraparenchymal hemorrhage, acute infarct, mass or midline shift. The ventricular system and cortical sulci are dilated consistent with minimal volume loss. There is no extra cerebral collection. There is no fracture. Mucosal thickening is present in the right maxillary sinus. IMPRESSION: 1. Bilateral frontal lobe and right temporal lobe encephalomalacia. 2. Small vessel ischemic disease. 3. Minimal volume loss. Electronically Signed by Duran Hinkle MD 05/06/2018 12:18 P
[2018-05-06 12:32] LABS: ACETAMINOPHEN LEVEL < 2.0 UG/ML (10.0-30.0); ALBUMIN 4.2 GM/DL (3.2-5.2); ALT/SGPT 79 U/L (12-78); BILIRUBIN,DIRECT 0.8 MG/DL (0.0-0.2); BLOOD UREA NITROGEN 51 MG/DL (7-18); CALCIUM LEVEL 9.6 MG/DL (8.5-10.1); CARBON DIOXIDE LEVEL 25 MEQ/L (21-32); CHLORIDE LEVEL 99 MEQ/L (98-107); ETHYL ALCOHOL (ETHANOL) < 0.003 % (0.000-0.010); GLOMERULAR FILTRATION RATE 41.9 (>56); GLUCOSE, FASTING 92 MG/DL (70-100); POTASSIUM SERUM 2.9 MEQ/L (3.5-5.1); SALICYLATE LEVEL < 1.7 MG/DL (5.0-30.0); SODIUM LEVEL 141 MEQ/L (136-145); TOTAL PROTEIN 8.4 GM/DL (6.4-8.2)
--- NOTE | 2018-05-06 12:32 | REP ---
CT cervical spine without contrast HISTORY: Fall COMPARISON: None There is no acute fracture or subluxation. Disc bulges with associated osteophyte formation are present at the C4-5 through C6-7 levels. There is minimal narrowing of the spinal canal. Uncinate process and/or facet hypertrophy are present at the C2-3 and C4-5 through C6-7 levels. These findings produce minimal to mild narrowing of the neural foramina. The C4-5 through C6-7 intervertebral discs are decreased in height consistent with disc degeneration. IMPRESSION: 1. There is no acute fracture or subluxation. 2. There is cervical spondylosis at the C2-3 and C4-5 through C6-7 levels. Electronically Signed by Duran Hinkle MD 05/06/2018 12:23 P
[2018-05-06 12:33] LABS: MB/CK RELATIVE INDEX 0.79 (< OR =4); TROPONIN I 0.07 NG/ML (< 0.10)
[2018-05-06] MEDS ORDERED: NS 500 ML IV ONE ×2 (12:45→13:15)
[2018-05-06] MEDS ORDERED: KCL 10MEQ/100ML SWI (KRUN) 10 MEQ in APPROPRIATE DILUENT 1 EA IV ONE (12:45)
[2018-05-06 12:48] LABS: MAGNESIUM LEVEL 2.5 MG/DL (1.8-2.4)
--- NOTE | 2018-05-06 12:57 | REP ---
CT CHEST WITH IV CONTRAST: TECHNIQUE: Axial contrast enhanced images from the thoracic inlet to the upper abdomen using 100 mL Isovue 370 intravenous contrast material with multiplanar reformations. There is no evidence of thoracic aortic aneurysm or dissection. No mediastinal hematoma is seen. The heart is normal in size. There is no mediastinal, hilar, or chest wall lymphadenopathy. There is no pleural or pericardial effusion. No infiltrate is seen in either lung. There are healing fractures of the anterior right 4th through 7th ribs, demonstrating healing callous formation. There is no compression deformity of the thoracic spine. IMPRESSION: Healing fractures anterior right 4th through 7th ribs. No acute abnormality detected. Electronically Signed by Albin Rosa MD 05/06/2018 01:58 P
[2018-05-06] MEDS ORDERED: MULTIVITAMIN -ADULT INJECTION 10 ML, THIAMINE INJection 100 MG, FOLIC ACID 1 MG in NS 1... IV ONE (13:00)
--- NOTE | 2018-05-06 13:01 | REP ---
CT ABDOMEN AND PELVIS WITH IV CONTRAST: TECHNIQUE: Axial contrast enhanced images from the lung bases to the pubic symphysis using 100 mL Isovue 370 intravenous contrast material with multiplanar reformations. The liver demonstrates diffuse fatty infiltration. The spleen, adrenals and pancreas are unremarkable. There is mild left renal atrophy and cortical scarring. There is no hydronephrosis bilaterally. There is no abdominal aortic aneurysm. There is no adenopathy. There is no free air or free fluid. There is no bowel wall thickening. There is no evidence of appendicitis. There is a small right inguinal hernia containing fat. No pelvic mass is seen. Urinary bladder is not distended and not well evaluated. Visualized osseous structures appear intact. IMPRESSION: Diffuse fatty infiltration of the liver. Small right inguinal hernia contains fat. No acute abnormalities detected. Electronically Signed by Albin Rosa MD 05/06/2018 01:58 P
[2018-05-06] MEDS ORDERED: VITA500046 PO (13:47)
[2018-05-06] MEDS ORDERED: POTASSIUM CHLORIDE 10 MEQ SR TABLET PO ONE ×3 (14:00→19:00)
--- NOTE | 2018-05-06 15:07 | ECGEPIP ---
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
--- NOTE | 2018-05-06 15:21 | HPEPDOC ---
[facility] Medical History & Physical Date of Admission May 06, 2018 Attending Physician: EDWIN BAUTISTA MD History and Physical CHIEF COMPLAINT: Altered mental status HISTORY OF PRESENT ILLNESS: Patient was found wandering around his apartment complex, [facility], by police. Per law enforcement account, patient was able to identify his apartment via number was on sure if his apartment was his. At that time, he had admitted to drinking. He does have a seizure history. Emergency room record indicates that the patient originally asked about papers refusing treatment. Patient did have dried blood on his face and a superficial abrasion above his right eye at the time of presentation. It was unclear as to whether or not he had suffered a head injury or had a seizure. In the emergency department, CBC indicated a mildly elevated white count of 12.4. CMP indicated a potassium level of 2.9 for which she was subsequently given K-run and a banana bag. BUN/creatinine of 51/1.8. Mild elevation in his liver enzymes. Creatinine kinase elevation of 2384. Toxicology was negative, including alcohol. Imaging performed to rule out trauma was largely negative. EKG showing normal sinus rhythm. Patient will be admitted to hospitalist service for further management of suspected alcohol withdrawal. 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 Patient did admit to drinking 2-3 scotches last evening, pours of 3+ inches in standard glass. Known history of alcoholism with seizures. FAMILY HISTORY: Unable to be obtained due to patient's current state of mentation. ALLERGIES: No known allergies per the medical record. REVIEW OF SYSTEMS: Complete review of systems was unable to be obtained due to patient's current state of mentation. He denies being any pain or discomfort. HOME MEDICATIONS: Please see below. PHYSICAL EXAMINATION: VITAL SIGNS: Temperature: 96.7 F, pulse: 90, respiratory rate: 18, blood pr essure: 153/95 (114), pulse oximetry 95% on room air. GENERAL APPEARANCE: Patient is awake and alert, oriented to his name and that he is in the hospital. Very poor eye contact, very fixated on his hospital blanket during examination. Patient is has noticeable tremor. Patient does not appear to be in any acute distress HEENT: Normocephalic, patient did have very superficial abrasion above his right eye, the scar is also noted in the same location. Unable to follow commands for complete EOM examination. No scleral icterus. Mucous membranes moist. Minor lateral tongue lesions NECK: Trachea midline, no JVD, no cervical tenderness CARDIOVASCULAR: Regular rate and rhythm, normal S1-S2 LUNGS: Fair air movement, clear to auscultation bilaterally ABDOMEN: Soft, nontender, nondistended EXTREMITIES: Able to move all extremities equally and bilaterally, distal pulses 2+ be a radial and posterior tibial bilaterally. No lower extremity edema or calf tenderness. NEUROLOGICAL: Complete neurologic exam was unable to be performed due to patient's current state of mentation. No facial drooping. Upper extremity tremor noted bilaterally LABORATORY DATA: See below. IMAGING: Head CT (05/06/18): Bilateral frontal lobe and right temporal lobe encephalomalacia see. Small vessel ischemic disease, minimal volume loss. Cervical Spine CT (05/06/18): No acute fracture or subluxation, there is a cervical spondylosis at C2-3 and C4-5 through C6-[address] (05/06/18): Healing fractures anterior right fourth to seventh ribs. No acute abnormality detected Abdomen/Pelvis CT (05/06/18): Diffuse fatty infiltration of the liver. Small right inguinal hernia which contains fat. No acute abnormalities detected. Chest XR (05/06/18): No acute disease ED EKG (05/06/18): Normal Sinus Rhythm MICROBIOLOGY: Please see below. ASSESSMENT: Patient is a 57 year old, white male who presents to the emergency department after being found wandering his apartment complex, confused. He was noted to have what appeared as an abrasion on the right side of his forehead. He carries a past medical history significant for TBI, seizures and alcohol abuse. PLAN: Alcohol withdrawal Patient has a long-standing history of alcohol abuse and withdrawal. Negative for ethanol alcohol at the time of presentation. Patient will remain on CIWA with 2mg of Ativan written when necessary per protocol for withdrawal symptoms. Plan to monitor with goal of weaning off benzodiazepine support Hypokalemia Was given AK run and a banana bag in the ED Plan to continue with oral supplementation GUANAKITO Contrast was given to obtain necessary imaging to rule/out traumatic event Plan to correct electrolyte imbalances, particularly potassium Plan to continue fluids Rhabdomyolysis Elevation in his creatinine kinase suggestive of seizure or fall Continue with IV hydration Monitor CK levels, renal function and electrolytes Continue to follow potassium Hypertension Continue to monitor patient's vital signs If necessary plan to add amlodipine 10 mg DEBBI PO daily. Patient was previously hospitalized for similar circumstances, the aforementioned medication was used to adequately control his blood pressure with good effect. CODE STATUS: Full code Vital Signs Vital Signs Date Time Temp Pulse Resp B/P (MAP) Pulse Ox O2 Delivery O2 Flow Rate FiO2 05/06/18 13:45 90 18 153/95 (114) 95 Room Air 05/06/18 11:20 96.7 Laboratory Data Labs 24H Laboratory Tests 2 05/06/18 11:33: Immature Granulocyte % (Auto) 1.1, White Blood Count 12.4H, Red Blood Count 4.72, Hemoglobin 15.4, Hematocrit 46.7, Mean Corpuscular Volume 98.9H, Mean Corpuscular Hemoglobin 32.6, Mean Corpuscular Hemoglobin Concent 33.0, Red Cell Distribution Width 15.9H, Platelet Count 182, Neutrophils (%) (Auto) 85.6H, Lymphocytes (%) (Auto) 6.0L, Monocytes (%) (Auto) 6.9H, Eosinophils (%) (Auto) 0.0, Basophils (%) (Auto) 0.4, Neutrophils # (Auto) 10.6H, Lymphocytes # (Auto) 0.7L, Monocytes # (Auto) 0.9H, Eosinophils # (Auto) 0.0, Basophils # (Auto) 0.1, Nucleated Red Blood Cells % (auto) 0.0, Anion Gap 17H, Glomerular Filtration Rate 41.9L, Calcium Level 9.6, Magnesium Level 2.5H, Aspartate Amino Transf (AST/SGOT) 129H, Alanine Aminotransferase (ALT/SGPT) 79H, Alkaline Phosphatase 137H, Total Bilirubin 3.0H, Direct Bilirubin 0.8H, Total Creatine Kinase 2384H, Creatine Kinase MB 19.0H, Creatine Kinase MB Relative Index 0.79, Troponin I 0.07, Total Protein 8.4H, Albumin 4.2, Albumin/Globulin Ratio 1.00, Thyroid Stimulating Hormone (TSH) 1.670, Salicylates Level < 1.7L, Acetaminophen Level < 2.0L, Ethyl Alcohol Level < 0.003 05/06/18 11:37: Urine Amphetamines Screen NEGATIVE, Urine Benzodiazepines Screen NEGATIVE, Urine Opiates Screen NEGATIVE, Urine Methadone Screen NEGATIVE, Urine Barbiturates Screen NEGATIVE, Urine Phencyclidine Screen NEGATIVE, Urine Cocaine Metabolite Screen NEGATIVE, Urine Cannabinoids Screen NEGATIVE 05/06/18 13:00: CBC/BMP Laboratory Tests 05/06/18 11:33 Red Blood Count 4.72, Mean Corpuscular Volume 98.9 H, Mean Corpuscular Hemoglobin 32.6, Mean Corpuscular Hemoglobin Concent 33.0, Red Cell Distribution Width 15.9 H, Neutrophils (%) (Auto) 85.6 H, Lymphocytes (%) (Auto) 6.0 L, Monocytes (%) (Auto) 6.9 H, Eosinophils (%) (Auto) 0.0, Basophils (%) (Auto) 0.4, Neutrophils # (Auto) 10.6 H, Lymphocytes # (Auto) 0.7 L, Monocytes # (Auto) 0.9 H, Eosinophils # (Auto) 0.0, Basophils # (Auto) 0.1 Home Medications Scheduled Cholecalciferol (Vitamin D) 5,000 Unit Tab, 5,000 UNIT PO DAILY Allergies Coded Allergies: No Known Allergies (Unverified , 04/18/13) GME ATTESTATION GME ATTESTATION My faculty preceptor for this patient encounter was physically present during the encounter and was fully available. All aspects of the patient interview, examination, medical decision making process, and medical care plan development were reviewed and approved by the faculty preceptor. The faculty preceptor is aware and concurs with the plan as stated in the body of this note and will attest to such by his/her cosignature. KATHRIN GRIMES DO May 06, 2018 15:20
[2018-05-06 15:40] VITALS: BP 165/93
[2018-05-06 16:00] VITALS: BP 165/94
[2018-05-06] MEDS: PANTOPRAZOLE 40MG TAB (PROTONIX) PO SCH (16:30)
[2018-05-06] MEDS: NS 1,000 ML IV SCH (16:31)
[2018-05-06] MEDS: LORazepam 2 MG TAB PO PRN (18:16)
[2018-05-06 18:45] LABS: CALCIUM LEVEL 8.7 MG/DL (8.5-10.1); CREATININE FOR GFR 1.43 MG/DL (0.70-1.30); GLOMERULAR FILTRATION RATE 54.7 (>56); POTASSIUM SERUM 2.9 MEQ/L (3.5-5.1)
[2018-05-06] MEDS: KCL 10MEQ/100ML SWI (KRUN) 10 MEQ in APPROPRIATE DILUENT 1 EA IV SCH ×2 (19:42→20:55)
[2018-05-06 20:00] VITALS: BP 130/87
[2018-05-06] MEDS ORDERED: OXAZEPAM 15 MG CAP PO SCH (22:00)
[2018-05-06] MEDS: LORazepam 2 MG/ML VIAL (J2060) IV PRN (23:06)
[2018-05-06 23:35] LABS: BLOOD UREA NITROGEN 41 MG/DL (7-18); CALCIUM LEVEL 8.7 MG/DL (8.5-10.1); CARBON DIOXIDE LEVEL 27 MEQ/L (21-32); CHLORIDE LEVEL 109 MEQ/L (98-107); CREATININE FOR GFR 1.19 MG/DL (0.70-1.30); GLOMERULAR FILTRATION RATE > 60.0 (>56); GLUCOSE, FASTING 89 MG/DL (70-100); POTASSIUM SERUM 3.3 MEQ/L (3.5-5.1); SODIUM LEVEL 145 MEQ/L (136-145)
[2018-05-07] VITALS (22 sets, daily range): BP systolic 112–150; BP diastolic 74–96; O2SAT 92–97
[2018-05-07] MEDS: LORazepam 2 MG/ML VIAL (J2060) IV PRN (00:29)
[2018-05-07] MEDS: LORazepam 2 MG TAB PO PRN (02:45)
[2018-05-07] MEDS ORDERED: MAGIC MOUTHWASH SUSPENSION BTL SSP PRN (03:00)
[2018-05-07] MEDS: NS 1,000 ML IV SCH (04:00)
[2018-05-07 05:49] LABS: MEAN CORPUSCULAR HEMOGLOBIN 33.1 pg (27.0-33.0); MEAN CORPUSCULAR VOLUME 100.3 fl (80.0-96.0); PLATELET COUNT, AUTOMATED 114 10^3/uL (150-450); RED BLOOD COUNT 3.69 10^6/uL (4.30-6.10); WHITE BLOOD COUNT 4.9 10^3/uL (4.0-10.0)
[2018-05-07 05:57] LABS: HEMOGLOBIN 12.2 g/dl (13.5-17.5)
[2018-05-07 06:17] LABS: BLOOD UREA NITROGEN 35 MG/DL (7-18); CALCIUM LEVEL 8.6 MG/DL (8.5-10.1); CARBON DIOXIDE LEVEL 27 MEQ/L (21-32); CHLORIDE LEVEL 110 MEQ/L (98-107); CREATININE FOR GFR 0.92 MG/DL (0.70-1.30); GLOMERULAR FILTRATION RATE > 60.0 (>56); GLUCOSE, FASTING 92 MG/DL (70-100); POTASSIUM SERUM 2.9 MEQ/L (3.5-5.1); SODIUM LEVEL 147 MEQ/L (136-145)
[2018-05-07] MEDS ORDERED: POTASSIUM CHLORIDE 10 MEQ SR TABLET PO ONE ×2 (06:30→07:30)
[2018-05-07] MEDS: OXAZEPAM 15 MG CAP PO SCH ×3 (06:34→21:58)
[2018-05-07] MEDS: KCL 10MEQ/100ML SWI (KRUN) 10 MEQ in APPROPRIATE DILUENT 1 EA IV SCH ×2 (08:27→10:14)
[2018-05-07] MEDS ORDERED: POTASSIUM CHLORIDE 10% LIQ 20 MEQ/15 ML UDC PO ONE ×2 (10:00→14:30)
[2018-05-07] MEDS ORDERED: THIAMINE 100 MG TAB PO ONE (10:00)
[2018-05-07] MEDS ORDERED: MULTIVITAMINS/MINERALS THERAP 1 TAB PO ONE (10:00)
[2018-05-07] MEDS ORDERED: FOLIC ACID 1 MG TAB PO ONE (10:00)
[2018-05-07] MEDS: PANTOPRAZOLE 40MG TAB (PROTONIX) PO SCH (10:13)
[2018-05-07] MEDS: KCL 40MEQ in NS 1000ML 1,000 ML IV SCH (10:14)
[2018-05-07] MEDS: PIPERACILLIN/TAZOBACTAM SOD 3.375 GM in D5W MINI-BAG PLUS 50 ML IV SCH ×2 (12:45→18:20)
[2018-05-07 13:19] LABS: BLOOD UREA NITROGEN 27 MG/DL (7-18); CARBON DIOXIDE LEVEL 28 MEQ/L (21-32); CHLORIDE LEVEL 110 MEQ/L (98-107); CREATININE FOR GFR 1.01 MG/DL (0.70-1.30); GLOMERULAR FILTRATION RATE > 60.0 (>56); GLUCOSE, FASTING 127 MG/DL (70-100); POTASSIUM SERUM 3.3 MEQ/L (3.5-5.1); SODIUM LEVEL 146 MEQ/L (136-145)
--- NOTE | 2018-05-07 16:13 | IPNPDOC ---
Text Note Date of Service The patient was seen on 05/07/18. 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 Patient appeared to be confused and was brought to the ER. Patient was admitted to hospitalist service for further evaluation and management of suspected alcohol withdrawal. Patient was seen and examined at the bedside. Currently patient denies any nausea, vomiting, abdominal pain, constipation, diarrhea. Patient does appear confused. Denies any chest pain, shortness breath, palpitations. As per nursing staff, patient was tremulous overnight and received Ativan IV. He was placed on Serax to control additional symptoms. Objective: Vitals (See below) General: Lying in bed, no acute distress, comfortable, Awake, Oriented to person HEENT: NC, AT, R eye discharge CVS: RRR, +S1S2 Lungs: Fair air entry b/l, -w/r/r Abdomen: Soft, ND, NT Extremities: - Edema, - Calf tenderness Assessment and plan: Confusion - likely 2/2 alcohol withdrawal - Patient has a history of alcohol abuse - Currently, patient remains only oriented to person, however, does not appear to be agitated - Physical remains benign - Chest CT 05/06: 1. Bilateral frontal lobe and right temporal lobe encephalomalacia. 2. Small vessel ischemic disease. 3. Minimal volume loss. - Cervical CT 05/06: 1. There is no acute fracture or subluxation. 2. There is cervical spondylosis at the C2-3 and C4-5 through C6-7 levels. - c/w Ativan IV and Serax s/p Leukocytosis - possibly 2/2 reactive etiology; less likely 2/2 infectious etiology - Patient does appear to have some conjunctivitis of his right eye - Remains afebrile / hemodynamically stable - Blood cultures 05/07: Pending - Chest CT 05/06: Healing fractures anterior right 4th through 7th ribs. No acute abnormality detected. - CT ab/pelv 05/06: Diffuse fatty infiltration of the liver. Small right inguinal hernia contains fat. No acute abnormalities detected. - Will start erythromycin ointment for right eye Status Epilepticus / TBI with SDH / Closed fracture of sphenoid / Temporal Bones - Occurred on 09/26 - Currently not on any medication for seizures - Patient was supposed to be on Valproic acid 250 mg BID; However, has stopped taking it since October 2017; Verified with [facility] - Will resume Valproic Acid Alcohol abuse - Will start MVI, Thiamine, Folate Rhabdomyolysis - CK levels elevated will continue to trend - c/w IV fluid hydration s/p GUANAKITO - Creatinine and has improved since the point of admission - c/w IV fluid hydration HTN - BP appears well controlled - Currently not on medications Depression - Currently not on any medications Hypokalemia - Will supplement GI prophylaxis - c/w Protonix DVT prophylaxis - c/w TEDs/Sequentials VS,Fishbone, I+O VS, Fishbone, I+O Laboratory Tests 05/06/18 17:46 Calcium Level 8.7 05/06/18 23:08 Calcium Level 8.7 05/07/18 05:06 Calcium Level 8.6, Red Blood Count 3.69 L, Mean Corpuscular Volume 100.3 H, Mean Corpuscular Hemoglobin 33.1 H, Mean Corpuscular Hemoglobin Concent 33.0, Red Cell Distribution Width 16.0 H 05/07/18 12:33 Calcium Level 9.0 Vital Signs Date Time Temp Pulse Resp B/P (MAP) Pulse Ox O2 Delivery O2 Flow Rate FiO2 05/07/18 12:00 98.9 98 20 135/91 (106) 90 05/07/18 00:00 2.0 05/06/18 15:30 Room Air I&O- Last 24 Hours up to 6 AM 05/07/18 05:59 Intake Total 3430 ml Output Total 875 ml Balance 2555 ml BARNEY CORRIGAN MD May 07, 2018 16:13
[2018-05-07] MEDS: CHLORHEXIDINE GLUCONATE 0.12 % 15ML UDC (PERIDEX ORAL RINSE) MT SCH ×2 (18:20→21:58)
[2018-05-07] MEDS: VALPROIC ACID SYRUP 250 MG/5 ML UDC PO SCH (18:20)
[2018-05-07] MEDS: ERYTHROMYCIN OPHTH OINT OD SCH (21:59)
[2018-05-08] VITALS (8 sets, daily range): BP systolic 134–157; BP diastolic 79–92
[2018-05-08] MEDS: KCL 40MEQ in NS 1000ML 1,000 ML IV SCH ×2 (00:34→06:00)
[2018-05-08] MEDS: PIPERACILLIN/TAZOBACTAM SOD 3.375 GM in D5W MINI-BAG PLUS 50 ML IV SCH ×5 (00:34→23:44)
[2018-05-08] MEDS: OXAZEPAM 15 MG CAP PO SCH ×2 (05:16→17:50)
[2018-05-08 05:50] LABS: HEMOGLOBIN 10.8 g/dl (13.5-17.5); MEAN CORPUSCULAR HEMOGLOBIN 32.7 pg (27.0-33.0); MEAN CORPUSCULAR HGB CONC 32.7 g/dl (32.0-36.5); PLATELET COUNT, AUTOMATED 104 10^3/uL (150-450); WHITE BLOOD COUNT 3.5 10^3/uL (4.0-10.0)
[2018-05-08 06:12] LABS: BLOOD UREA NITROGEN 14 MG/DL (7-18); CARBON DIOXIDE LEVEL 28 MEQ/L (21-32); CHLORIDE LEVEL 112 MEQ/L (98-107); CREATININE FOR GFR 0.99 MG/DL (0.70-1.30); GLOMERULAR FILTRATION RATE > 60.0 (>56); GLUCOSE, FASTING 112 MG/DL (70-100); POTASSIUM SERUM 3.2 MEQ/L (3.5-5.1); SODIUM LEVEL 146 MEQ/L (136-145)
[2018-05-08 08:18] LABS: CPK CREATINE PHOSPHOKINASE 1655 U/L (39-308)
[2018-05-08] MEDS: MULTIVITAMINS/MINERALS THERAP 1 TAB PO SCH (08:42)
[2018-05-08] MEDS: POTASSIUM CHLORIDE 10% LIQ 20 MEQ/15 ML UDC PO SCH ×2 (08:42→21:46)
[2018-05-08] MEDS: VALPROIC ACID SYRUP 250 MG/5 ML UDC PO SCH ×2 (08:42→21:45)
[2018-05-08] MEDS: ERYTHROMYCIN OPHTH OINT OD SCH ×2 (08:42→21:46)
[2018-05-08] MEDS: FOLIC ACID 1 MG TAB PO SCH (08:42)
[2018-05-08] MEDS: CHLORHEXIDINE GLUCONATE 0.12 % 15ML UDC (PERIDEX ORAL RINSE) MT SCH ×4 (08:42→21:45)
[2018-05-08] MEDS: PANTOPRAZOLE 40MG TAB (PROTONIX) PO SCH (08:42)
[2018-05-08] MEDS: THIAMINE 100 MG TAB PO SCH (08:42)
[2018-05-08] MEDS: NICOTINE 21MG/24HR 1 EA TRANSDERMAL TD SCH (09:00)
[2018-05-08] MEDS: amLODIPine 5 MG TAB PO SCH (10:06)
--- NOTE | 2018-05-08 13:36 | IPNPDOC ---
Text Note Date of Service The patient was seen on 05/08/18. 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 Patient appeared to be confused and was brought to the ER. Patient was admitted to hospitalist service for further evaluation and management of suspected alcohol withdrawal. Patient was seen and examined at the bedside. Currently, patient is more oriented. He is aware of why he is in the hospital. He denies any chest pain, shortness of breath or palpitations. Denies any nausea or vomiting. Denies abdominal pain, constipation, diarrhea or discomfort with urination. Patient has indicated that he last had a seizure approximately 4-6 weeks ago. He notes that he was on an antiepileptic medication. However, confirmation with [facility] has indicated that he has not yet filled this prescription since October. Patient has indicated that he has slow supplies of his antiepileptic medication. However, it's likely that he is not better medication. Objective: Vitals (See below) General: Lying in bed, no acute distress, comfortable, Awake and oriented to person/place/time HEENT: NC, AT, R eye discharge CVS: RRR, +S1S2 Lungs: Fair air entry b/l, auscultation is without any wheezing, rhonchi or rales Abdomen: Abdomen remains soft without distention or tenderness Extremities: Lower extremities are without any signs of edema, - Calf tenderness Assessment and plan: Confusion - likely 2/2 alcohol withdrawal; possibly history of recent seizure - Patient has a history of alcohol abuse - This morning patient is oriented to person, place and time - Physical not reveal any focal neurologic deficits - Chest CT 05/06: 1. Bilateral frontal lobe and right temporal lobe encephalomalacia. 2. Small vessel ischemic disease. 3. Minimal volume loss. - Cervical CT 05/06: 1. There is no acute fracture or subluxation. 2. There is cervical spondylosis at the C2-3 and C4-5 through C6-7 levels. - c/w Ativan IV and Serax; will reduce frequency of Serax s/p Leukocytosis - possibly 2/2 reactive etiology; less likely 2/2 infectious etiology - Patient does appear to have some conjunctivitis of his right eye - Remains afebrile / hemodynamically stable - Blood cultures 05/07: No growth at 24 hours - Chest CT 05/06: Healing fractures anterior right 4th through 7th ribs. No acute abnormality detected. - CT ab/pelv 05/06: Diffuse fatty infiltration of the liver. Small right inguinal hernia contains fat. No acute abnormalities detected. - c/w erythromycin ointment for right eye (Day #2) Status Epilepticus / TBI with SDH / Closed fracture of sphenoid / Temporal Bones - Occurred on 09/26 - Currently not on any medication for seizures - Patient was supposed to be on Valproic acid 250 mg BID; However, has stopped taking it since October 2017; Verified with [facility] - Will c/w Valproic Acid Alcohol abuse - c/w MVI, Thiamine, Folate Rhabdomyolysis - CK levels elevated will continue to trend - c/w IV fluid hydration s/p GUANAKITO - Creatinine and has improved since the point of admission - c/w IV fluid hydration HTN - BP appears well controlled - Currently not on medications Depression - Currently not on any medications Hypokalemia - Will supplement again today GI prophylaxis - c/w Protonix DVT prophylaxis - c/w TEDs/Sequentials VS,Fishbone, I+O VS, Fishbone, I+O Laboratory Tests 05/08/18 05:17 Red Blood Count 3.30 L, Mean Corpuscular Volume 100.0 H, Mean Corpuscular Hemoglobin 32.7, Mean Corpuscular Hemoglobin Concent 32.7, Red Cell Distribution Width 15.4 H, Calcium Level 8.0 L Vital Signs Date Time Temp Pulse Resp B/P (MAP) Pulse Ox O2 Delivery O2 Flow Rate FiO2 05/08/18 12:00 98.2 80 16 134/83 (100) 97 05/07/18 21:00 Room Air 05/07/18 00:00 2.0 I&O- Last 24 Hours up to 6 AM 05/08/18 06:00 Intake Total 3110 ml Output Total 240 ml Balance 2870 ml BARNEY CORRIGAN MD May 08, 2018 13:35
[2018-05-09 04:00] VITALS: BP 134/80
[2018-05-09] MEDS: OXAZEPAM 15 MG CAP PO SCH (05:05)
[2018-05-09] MEDS: PIPERACILLIN/TAZOBACTAM SOD 3.375 GM in D5W MINI-BAG PLUS 50 ML IV SCH (05:05)
[2018-05-09 05:34] LABS: HEMATOCRIT 32.9 % (42.0-52.0); HEMOGLOBIN 10.7 g/dl (13.5-17.5); MEAN CORPUSCULAR HEMOGLOBIN 33.1 pg (27.0-33.0); MEAN CORPUSCULAR HGB CONC 32.5 g/dl (32.0-36.5); MEAN CORPUSCULAR VOLUME 101.9 fl (80.0-96.0); PLATELET COUNT, AUTOMATED 113 10^3/uL (150-450); RED BLOOD COUNT 3.23 10^6/uL (4.30-6.10); WHITE BLOOD COUNT 4.3 10^3/uL (4.0-10.0)
[2018-05-09 05:53] LABS: BLOOD UREA NITROGEN 10 MG/DL (7-18); CARBON DIOXIDE LEVEL 27 MEQ/L (21-32); CHLORIDE LEVEL 108 MEQ/L (98-107); CREATININE FOR GFR 1.05 MG/DL (0.70-1.30); GLOMERULAR FILTRATION RATE > 60.0 (>56); GLUCOSE, FASTING 132 MG/DL (70-100); POTASSIUM SERUM 3.4 MEQ/L (3.5-5.1); SODIUM LEVEL 143 MEQ/L (136-145)
[2018-05-09 08:00] VITALS: BP 142/88
[2018-05-09] MEDS: VALPROIC ACID SYRUP 250 MG/5 ML UDC PO SCH ×2 (08:51→20:50)
[2018-05-09] MEDS: CHLORHEXIDINE GLUCONATE 0.12 % 15ML UDC (PERIDEX ORAL RINSE) MT SCH ×4 (08:51→20:50)
[2018-05-09] MEDS: POTASSIUM CHLORIDE 10% LIQ 20 MEQ/15 ML UDC PO SCH ×2 (08:51→20:49)
[2018-05-09] MEDS: MULTIVITAMINS/MINERALS THERAP 1 TAB PO SCH (08:52)
[2018-05-09] MEDS: NICOTINE 21MG/24HR 1 EA TRANSDERMAL TD SCH (08:52)
[2018-05-09] MEDS: PANTOPRAZOLE 40MG TAB (PROTONIX) PO SCH (08:52)
[2018-05-09] MEDS: amLODIPine 5 MG TAB PO SCH (08:52)
[2018-05-09] MEDS: FOLIC ACID 1 MG TAB PO SCH (08:52)
[2018-05-09] MEDS: THIAMINE 100 MG TAB PO SCH (08:52)
[2018-05-09] MEDS: ERYTHROMYCIN OPHTH OINT OD SCH ×2 (08:53→20:51)
--- NOTE | 2018-05-09 11:35 | IPNPDOC ---
Text Note Date of Service The patient was seen on 05/09/18. 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 Patient appeared to be confused and was brought to the ER. Patient was admitted to hospitalist service for further evaluation and management of suspected alcohol withdrawal. Patient was seen and examined at the bedside. Currently patient has no new complaints. He is oriented to person, place and time. Denies any problems overnight. Denies nausea, vomiting, abdominal pain, constipation, diarrhea. Denies any urinary discomfort. Does note some discomfort of his tongue. Denies chest pain, shortness of breath or palpitations. Objective: Vitals (See below) General: Lying in bed, no acute distress, comfortable, Awake and oriented to per son/place/time HEENT: NC, AT, R eye discharge CVS: RRR, +S1S2 Lungs: Fair air entry b/l, no evidence of rhonchi, rales or wheezing Abdomen: Soft without distention, no tenderness appreciated Extremities: Pitting edema is not appreciated. Lower extremities, - Calf tenderness Assessment and plan: Confusion - likely 2/2 alcohol withdrawal; possibly history of recent seizure - Patient has a history of alcohol abuse - This morning patient is oriented to person, place and time - Physical not reveal any focal neurologic deficits - Chest CT 05/06: 1. Bilateral frontal lobe and right temporal lobe encephalomalacia. 2. Small vessel ischemic disease. 3. Minimal volume loss. - Cervical CT 05/06: 1. There is no acute fracture or subluxation. 2. There is cervical spondylosis at the C2-3 and C4-5 through C6-7 levels. - EEG pending - c/w Ativan IV and Serax; will reduce dose of Serax s/p Leukocytosis - possibly 2/2 reactive etiology; possibly 2/2 infectious etiology - 2/2 tongue infection after recent biting - Patient does appear to have some conjunctivitis of his right eye - Tongue appears to be healing compared to point arrival - Remains afebrile / hemodynamically stable - Blood cultures 05/07: No growth at 24 hours - Chest CT 05/06: Healing fractures anterior right 4th through 7th ribs. No acute abnormality detected. - CT ab/pelv 05/06: Diffuse fatty infiltration of the liver. Small right inguinal hernia contains fat. No acute abnormalities detected. - c/w Erythromycin ointment for right eye (Day #3) - Discussed with ENT; at this point, will continue with chlorhexidine rinses and antibiotics - Will start Augmentin; will DC Zosyn (Day #3) Status Epilepticus / TBI with SDH / Closed fracture of Sphenoid / Temporal Bones - Occurred on 09/26 - Currently not on any medication for seizures - Patient was supposed to be on Valproic Acid 250 mg BID; However, has stopped taking it since October 2017; Verified with [facility] - c/w Valproic Acid Alcohol abuse - c/w MVI, Thiamine, Folate Rhabdomyolysis - CK levels elevated will continue to trend - s/p IV fluid hydration s/p GUANAKITO - Creatinine and has improved since the point of admission - s/p IV fluid hydration HTN - BP appears well controlled - c/w Amlodipine Depression - Currently not on any medications Hypokalemia - c/w supplementation GI prophylaxis - c/w Protonix DVT prophylaxis - c/w TEDs/Sequentials Disposition: - Will get PT evaluation - EEG pending - Will need ENT / Neurology referral as an outpatient Timmy TRIPP I+O Timmy TRIPP I+O Laboratory Tests 05/09/18 05:14 Red Blood Count 3.23 L, Mean Corpuscular Volume 101.9 H, Mean Corpuscular Hemoglobin 33.1 H, Mean Corpuscular Hemoglobin Concent 32.5, Red Cell Distribution Width 14.8 H, Calcium Level 8.0 L Vital Signs Date Time Temp Pulse Resp B/P (MAP) Pulse Ox O2 Delivery O2 Flow Rate FiO2 05/09/18 08:52 142/88 05/09/18 08:00 97.6 84 20 100 05/07/18 21:00 Room Air 05/07/18 00:00 2.0 I&O- Last 24 Hours up to 6 AM 05/09/18 06:00 Intake Total 2900 ml Output Total 1425 ml Balance 1475 ml BARNEY CORRIGAN MD May 09, 2018 11:35
[2018-05-09 11:49] LABS: CPK CREATINE PHOSPHOKINASE 1824 U/L (39-308)
[2018-05-09 12:00] VITALS: BP 152/90
[2018-05-09 16:00] VITALS: BP 160/99
[2018-05-09] MEDS: OXAZEPAM 10 MG CAP PO SCH (17:03)
[2018-05-09 20:00] VITALS: BP 155/94
[2018-05-09] MEDS: AUGMENTIN 875 MG TAB PO SCH (20:50)
[2018-05-09 23:59] VITALS: BP 140/94
[2018-05-10 04:00] VITALS: BP 150/88
[2018-05-10] MEDS: OXAZEPAM 10 MG CAP PO SCH (05:21)
[2018-05-10 05:45] LABS: HEMATOCRIT 36.1 % (42.0-52.0); HEMOGLOBIN 11.7 g/dl (13.5-17.5); MEAN CORPUSCULAR HEMOGLOBIN 32.6 pg (27.0-33.0); MEAN CORPUSCULAR HGB CONC 32.4 g/dl (32.0-36.5); MEAN CORPUSCULAR VOLUME 100.6 fl (80.0-96.0); PLATELET COUNT, AUTOMATED 159 10^3/uL (150-450); RED BLOOD COUNT 3.59 10^6/uL (4.30-6.10); WHITE BLOOD COUNT 5.6 10^3/uL (4.0-10.0)
[2018-05-10 06:03] LABS: BLOOD UREA NITROGEN 8 MG/DL (7-18); CALCIUM LEVEL 8.1 MG/DL (8.5-10.1); CARBON DIOXIDE LEVEL 31 MEQ/L (21-32); CHLORIDE LEVEL 106 MEQ/L (98-107); CREATININE FOR GFR 0.84 MG/DL (0.70-1.30); GLOMERULAR FILTRATION RATE > 60.0 (>56); GLUCOSE, FASTING 108 MG/DL (70-100); POTASSIUM SERUM 3.2 MEQ/L (3.5-5.1); SODIUM LEVEL 144 MEQ/L (136-145)
[2018-05-10] MEDS ORDERED: POTASSIUM CHLORIDE 10% LIQ 20 MEQ/15 ML UDC PO ONE (07:00)
[2018-05-10 08:00] VITALS: BP 142/84
[2018-05-10] MEDS: AUGMENTIN 875 MG TAB PO SCH (08:41)
[2018-05-10] MEDS: THIAMINE 100 MG TAB PO SCH (08:41)
[2018-05-10] MEDS: CHLORHEXIDINE GLUCONATE 0.12 % 15ML UDC (PERIDEX ORAL RINSE) MT SCH ×3 (08:41→16:39)
[2018-05-10] MEDS: MULTIVITAMINS/MINERALS THERAP 1 TAB PO SCH (08:41)
[2018-05-10] MEDS: PANTOPRAZOLE 40MG TAB (PROTONIX) PO SCH (08:41)
[2018-05-10] MEDS: NICOTINE 21MG/24HR 1 EA TRANSDERMAL TD SCH (08:41)
[2018-05-10] MEDS: VALPROIC ACID SYRUP 250 MG/5 ML UDC PO SCH (08:41)
[2018-05-10] MEDS: FOLIC ACID 1 MG TAB PO SCH (08:41)
[2018-05-10 08:42] VITALS: BP 142/84
[2018-05-10] MEDS: amLODIPine 5 MG TAB PO SCH (08:42)
[2018-05-10] MEDS ORDERED: POTASSIUM CHLORIDE 10 MEQ SR TABLET PO SCH (09:00)
[2018-05-10] MEDS: ERYTHROMYCIN OPHTH OINT OD SCH (09:00)
[2018-05-10 10:43] LABS: CPK CREATINE PHOSPHOKINASE 1367 U/L (39-308); MAGNESIUM LEVEL 1.5 MG/DL (1.8-2.4)
[2018-05-10 12:00] VITALS: BP 150/98
[2018-05-10] MEDS ORDERED: MAGNESIUM OXIDE 400 MG TAB (MAG-OX) PO ONE (15:30)
--- NOTE | 2018-05-10 16:35 | EEG ---
DATE OF PROCEDURE: 05/09/2018 REFERRING PHYSICIAN: Dr. Georgina Rico DIAGNOSIS: Seizure. EEG NUMBER: [id number]. HISTORY: Patient is a 57-year-old man with a history of alcohol abuse, seizures, skull fracture, who was found wandering around his apartment complex. Patient was hospitalized a couple of months ago due to a seizure. There is concern about noncompliance with the medications. This EEG was done to rule out epileptic potential. He is currently taking Depakote, oxazepam, Zosyn, Protonix, folic acid, multivitamin, etc. TECHNICAL DESCRIPTION: This digital EEG was recorded by 21 scalp, ear, and two EKG electrodes and was reviewed in bipolar and referential montages following reformatting in 10-20 international electrode placement system. INTERPRETATION: Patient was noted to be in awake and drowsy states during this EEG. Resting awake background rhythm consisted of well-formed posterior dominant rhythm with anterior/posterior gradient comprising of 9 Hertz alpha activity measuring 15-40 microvolts in amplitude, which was symmetric and reactive to eye opening. Anteriorly low voltage and mixed frequency activity was noted. Attenuation of posterior dominant rhythm was seen during transition into drowsiness. Stage I and II sleep were reviewed and were symmetric bilaterally. Hyperventilation could not be performed. Photic stimulation remained unremarkable. EKG revealed normal sinus rhythm. No focal, lateralizing, or epileptiform abnormalities were seen. No clinical or electrographic seizures were recorded. CONCLUSION: This EEG in awake, drowsy states, stage I and II sleep is within normal limits.
[2018-05-10] MEDS ORDERED: VALP25EL PO (16:45)
[2018-05-10] MEDS ORDERED: POTA1TAB14 PO (16:45)
[2018-05-10] MEDS ORDERED: AMLO5TAB6 PO (16:45)
[2018-05-10] MEDS ORDERED: PERI12LIQ MT (16:45)
[2018-05-10] MEDS ORDERED: FOLI1TAB11 PO (16:45)
[2018-05-10] MEDS ORDERED: NICO21PAT TD (16:45)
[2018-05-10] MEDS ORDERED: THIA100TA PO (16:45)
[2018-05-10] MEDS ORDERED: ERYT5OPO OD (16:45)
[2018-05-10] MEDS ORDERED: AMOX875T2 PO (16:45)
[2018-05-10] MEDS ORDERED: VITMTA PO (16:45)
== END 2018-05-10 18:50 | disposition home or self-care (01) | DRG 898 ==
LOC: M ED 10:54 → M ED INP 13:55 → M PCU 15:38
PROVIDERS: ADMIT Internal Medicine; ATTEND Internal Medicine
DX: F10.239 Alcohol dependence with withdrawal, unspecified (principal); N17.9 Acute kidney failure, unspecified; M62.82 Rhabdomyolysis; R56.9 Unspecified convulsions; E87.6 Hypokalemia; F32.9 Major depressive disorder, single episode, unspecified; I10 Essential (primary) hypertension; Z87.820 Personal history of traumatic brain injury

== ENCOUNTER 2018-07-25 15:12 | Inpatient (IN) | payer OTHER ==
[~2018-07-25] VITALS: Ht 185.4 cm; Wt 82.3 kg
[~2018-07-25 15:12] MED LIST changes: +AMLO5TAB6 PO; +AMOX875T2 PO; +ERYT1OIN26 OD; +FOLIC ACID 1 MG TAB PO SCH; +MULTIVITAMINS/MINERALS THERAP 1 TAB PO SCH; +NICO21PAT TD; +PERI12LIQ MT; +POTA1TAB14 PO; +VITA500046 PO; +VITMTA PO
[2018-07-25] MEDS ORDERED: LORazepam 2 MG/ML VIAL (J2060) IV STA ×2 (15:25→19:40)
[2018-07-25] MEDS ORDERED: LORazepam 2 MG TAB PO PRN (15:30)
[2018-07-25 15:55] LABS: BASO % 0.9 % (0.0-1.0); HEMATOCRIT 36.3 % (42.0-52.0); HEMOGLOBIN 12.4 g/dl (13.5-17.5); LYMPH # 0.5 10^3/uL (1.5-4.5); LYMPH % 11.7 % (24.0-44.0); MEAN CORPUSCULAR HEMOGLOBIN 32.5 pg (27.0-33.0); MEAN CORPUSCULAR HGB CONC 34.2 g/dl (32.0-36.5); MEAN CORPUSCULAR VOLUME 95.3 fl (80.0-96.0); MONO # 0.4 10^3/uL (0.0-0.8); MONO % 10.1 % (0.0-5.0); NEUTROPHILS # 3.4 10^3/uL (1.8-7.7); NEUTROPHILS % 76.6 % (36.0-66.0); RED BLOOD COUNT 3.81 10^6/uL (4.30-6.10); WHITE BLOOD COUNT 4.4 10^3/uL (4.0-10.0)
[2018-07-25] MEDS ORDERED: THIAMINE 100 MG TAB PO SCH (16:00)
[2018-07-25 16:10] LABS: INR 1.11; PROTHROMBIN TIME 14.4 SECONDS (12.1-14.4)
[2018-07-25 16:26] LABS: ALBUMIN 3.4 GM/DL (3.2-5.2); ALT/SGPT 92 U/L (12-78); BILIRUBIN,DIRECT 1.2 MG/DL (0.0-0.2); BILIRUBIN,TOTAL 2.6 MG/DL (0.2-1.0); BLOOD UREA NITROGEN 10 MG/DL (7-18); CALCIUM LEVEL 9.2 MG/DL (8.5-10.1); CARBON DIOXIDE LEVEL 21 MEQ/L (21-32); CHLORIDE LEVEL 97 MEQ/L (98-107); CK-MB VALUE MASS 1.1 NG/ML (<3.6); CPK CREATINE PHOSPHOKINASE 57 U/L (39-308); CREATININE FOR GFR 0.89 MG/DL (0.70-1.30); ETHYL ALCOHOL (ETHANOL) 0.041 % (0.000-0.010); GLOMERULAR FILTRATION RATE > 60.0 (>56); GLUCOSE, FASTING 128 MG/DL (70-100); MB/CK RELATIVE INDEX 1.93 (< OR =4); POTASSIUM SERUM 2.5 MEQ/L (3.5-5.1); SODIUM LEVEL 138 MEQ/L (136-145); TOTAL PROTEIN 7.4 GM/DL (6.4-8.2); TROPONIN I < 0.02 NG/ML (< 0.10)
[2018-07-25] MEDS ORDERED: POTASSIUM CHLORIDE 10 MEQ SR TABLET PO ONE (16:30)
[2018-07-25] MEDS ORDERED: KCL 10MEQ/100ML SWI (KRUN) 10 MEQ in APPROPRIATE DILUENT 1 EA IV ONE (16:30)
[2018-07-25 16:36] LABS: MAGNESIUM LEVEL 1.3 MG/DL (1.8-2.4)
[2018-07-25 16:39] LABS: PLATELET COUNT, AUTOMATED 63 10^3/uL (150-450)
[2018-07-25] MEDS ORDERED: MAG SULF 1GM/100ML (MAG RUN) 1 GM in APPROPRIATE DILUENT 1 EA IV ONE ×2 (17:00→18:00)
[2018-07-25] MEDS ORDERED: PATIENT COMMENTS (19:42)
[2018-07-25] MEDS ORDERED: LORazepam 2 MG/ML VIAL (J2060) IV PRN (20:00)
[2018-07-25] MEDS ORDERED: dexmedeTOMidine 200 MCG in APPROPRIATE DILUENT 1 EA IV SCH (20:00)
[2018-07-25] MEDS ORDERED: NS 1,000 ML IV SCH (20:15)
[2018-07-25] MEDS: NS 1,000 ML IV SCH (20:18)
--- NOTE | 2018-07-25 20:33 | HPEPDOC ---
General Date of Admission Jul 25, 2018 at 19:48 Date of Service: Jul 25, 2018 Attending Physician: MARICRUZ KIM MD Chief Complaint The patient is a 57-year-old male admitted with a reason for visit of Alcohol Withdrawal Delirium. History of Present Illness Patient is a 57-year-old male, brought to the hospital after he passed out and was incontinent. Patient has a past medical history significant for alcohol abuse, hypertension, withdrawal seizures. It was thought he had had a seizure episode while waiting to by alcohol. In the emergency room, patient was confused, requiring multiple doses of Ativan without achieving sedation. He presented with marked metabolic derangement with a potassium level that was low at 2.5 and magnesium of 1.3. Anion gap was 20. Patient was also tachycardic and hypertensive. Serum alcohol level was 0.041. Home Medications Miscellaneous Medications [Patient Comments] , (Reported) PATIENT STATES HE TAKES LINSINOPRIL (UNKNOWN STRENGTH) ONLY ON DAYS HE IS NOT DRINKING. WILL GET IN TOUCH WITH EARLY IN THE MORNING FOR CONFIRMATION Allergies Coded Allergies: No Known Allergies (Unverified , 04/18/13) Past Medical History Medical History Hypertension. Seizure disorder Surgical History Carpal tunnel repair Family History Denies family history Social History * Smoker: Denies Alcohol: heavy Drugs: denies A-FIB/CHADSVASC A-FIB History Current/History of A-Fib/PAF?: No Current PO Anticoag Therapy: No Review of Systems Other systems Review of systems not completed due to patient's acute delirium Physical Examination Other physical findings GENERAL: NAD SKIN : Warm, dry multiple areas of healing bruises HEENT: Atraumatic, normocephalic, PERRL, moist mucous membrane CARDIOVASCULAR: tachycardic, regular rate and rhythm, S1S2, no JVD, no edema, distal pulses + and palpable RESP: CTAB, no accessory muscle use noted ABDOMEN: BS+ non distended non tender MS: no joint deformities NEURO: Alert to self PSYCH: no anxiety or agitation Vital Signs Vital Signs Date Time Temp Pulse Resp B/P (MAP) Pulse Ox O2 Delivery O2 Flow Rate FiO2 07/25/18 20:03 117 19 106/68 (81) 98 07/25/18 15:20 97.4 Room Air Laboratory Data Labs 24H Laboratory Tests 2 07/25/18 15:42: Immature Granulocyte % (Auto) 0.7, White Blood Count 4.4, Red Blood Count 3.81L, Hemoglobin 12.4L, Hematocrit 36.3L, Mean Corpuscular Volume 95.3, Mean Corpuscular Hemoglobin 32.5, Mean Corpuscular Hemoglobin Concent 34.2, Red Cell Distribution Width 13.3, Platelet Count 63L, Neutrophils (%) (Auto) 76.6H, Lymphocytes (%) (Auto) 11.7L, Monocytes (%) (Auto) 10.1H, Eosinophils (%) (Auto) 0.0, Basophils (%) (Auto) 0.9, Neutrophils # (Auto) 3.4, Lymphocytes # (Auto) 0.5L, Monocytes # (Auto) 0.4, Eosinophils # (Auto) 0.0, Basophils # (Auto) 0.0, Nucleated Red Blood Cells % (auto) 0.0, Immature Platelet Fraction 5.1, Prothrombin Time 14.4, Prothromb Time International Ratio 1.11, Anion Gap 20H, Glomerular Filtration Rate > 60.0, Calcium Level 9.2, Magnesium Level 1.3L, Aspartate Amino Transf (AST/SGOT) 217H, Alanine Aminotransferase (ALT/SGPT) 92H, Alkaline Phosphatase 133H, Total Bilirubin 2.6H, Direct Bilirubin 1.2H, Total Creatine Kinase 57, Creatine Kinase MB 1.1, Creatine Kinase MB Relative Index 1.93, Troponin I < 0.02, Total Protein 7.4, Albumin 3.4, Albumin/Globulin Ratio 0.85L, Ethyl Alcohol Level 0.041H CBC/BMP Laboratory Tests 07/25/18 15:42 Red Blood Count 3.81 L, Mean Corpuscular Volume 95.3, Mean Corpuscular Hemoglobin 32.5, Mean Corpuscular Hemoglobin Concent 34.2, Red Cell Distribution Width 13.3, Neutrophils (%) (Auto) 76.6 H, Lymphocytes (%) (Auto) 11.7 L, Monocytes (%) (Auto) 10.1 H, Eosinophils (%) (Auto) 0.0, Basophils (%) (Auto) 0.9, Neutrophils # (Auto) 3.4, Lymphocytes # (Auto) 0.5 L, Monocytes # (Auto) 0.4, Eosinophils # (Auto) 0.0, Basophils # (Auto) 0.0 Assessment/Plan Alcohol abuse and withdrawal -Patient has received multiple doses of Ativan in the emergency room with limited effect -Start on Precedex drip with close ICU monitoring -Continue Alcohol withdrawal protocol Thrombocytopenia -bleeding precautions -recent SAH -fall precautions Seizure activity -Likely due to withdrawal -Neurology has been consulted and case discussed -Recommending no medical therapy for patient since seizure activity related to alcohol abuse -Has requested EEG been ordered to be completed tomorrow -Follow recommendations by neurology Metabolic acidosis -Likely due to alcohol abuse -Normal saline at 150 mL per hour -Repeat chemistry panel in the morning Metabolic derangement -Hypokalemia and hypomagnesemia -Repleted in the emergency room -Monitor levels and continue to replete to keep potassium greater than 4 and magnesium greater than 2 Frequent Falls -PT/OT consult for evaluation for rehabilitation when medically stable DVT prophylaxis -SCD/TEDS due to underlying risk of bleed with thrombocytopenia Plan / VTE VTE Prophylaxis Ordered?: Yes BOBBI MESA COTTON GRADER Jul 25, 2018 20:33
[2018-07-25] MEDS: PROPRANOLOL 20 MG TAB PO SCH (21:00)
[2018-07-25 21:20] VITALS: BP 112/72
[2018-07-25 22:29] VITALS: BP 107/68
[2018-07-25 22:48] LABS: ACETONE/KETONE 15.77 MG/DL (<2.81); BLOOD UREA NITROGEN 14 MG/DL (7-18); CALCIUM LEVEL 9.1 MG/DL (8.5-10.1); CARBON DIOXIDE LEVEL 28 MEQ/L (21-32); CHLORIDE LEVEL 97 MEQ/L (98-107); CREATININE FOR GFR 1.15 MG/DL (0.70-1.30); GLOMERULAR FILTRATION RATE > 60.0 (>56); GLUCOSE, FASTING 182 MG/DL (70-100); MAGNESIUM LEVEL 2.4 MG/DL (1.8-2.4); POTASSIUM SERUM 2.9 MEQ/L (3.5-5.1); SODIUM LEVEL 134 MEQ/L (136-145)
[2018-07-25 22:59] VITALS: BP 96/71
[2018-07-25] MEDS: KCL 10MEQ/100ML SWI (KRUN) 10 MEQ in APPROPRIATE DILUENT 1 EA IV SCH (23:12)
[2018-07-25 23:29] VITALS: BP 85/65
[2018-07-26] VITALS (21 sets, daily range): BP systolic 95–148; BP diastolic 67–107
[2018-07-26] MEDS ORDERED: NS 1,000 ML IV ONE
[2018-07-26] MEDS: KCL 10MEQ/100ML SWI (KRUN) 10 MEQ in APPROPRIATE DILUENT 1 EA IV SCH ×2 (00:14→02:43)
[2018-07-26] MEDS ORDERED: LORazepam 2 MG/ML VIAL (J2060) IV PRN (00:45)
[2018-07-26] MEDS: NS 1,000 ML IV SCH ×4 (02:43→23:57)
[2018-07-26] MEDS ORDERED: OXAZEPAM 15 MG CAP PO ONE (04:30)
[2018-07-26 05:36] LABS: HEMATOCRIT 35.4 % (42.0-52.0); MEAN CORPUSCULAR HEMOGLOBIN 33.1 pg (27.0-33.0); MEAN CORPUSCULAR HGB CONC 33.9 g/dl (32.0-36.5); MEAN CORPUSCULAR VOLUME 97.8 fl (80.0-96.0); PLATELET COUNT, AUTOMATED 40 10^3/uL (150-450); RED BLOOD COUNT 3.62 10^6/uL (4.30-6.10); WHITE BLOOD COUNT 2.6 10^3/uL (4.0-10.0)
[2018-07-26 05:55] LABS: ALBUMIN 3.2 GM/DL (3.2-5.2); ALT/SGPT 82 U/L (12-78); BILIRUBIN,TOTAL 2.8 MG/DL (0.2-1.0); BLOOD UREA NITROGEN 14 MG/DL (7-18); CALCIUM LEVEL 8.9 MG/DL (8.5-10.1); CARBON DIOXIDE LEVEL 30 MEQ/L (21-32); CHLORIDE LEVEL 101 MEQ/L (98-107); CREATININE FOR GFR 0.96 MG/DL (0.70-1.30); GLOMERULAR FILTRATION RATE > 60.0 (>56); GLUCOSE, FASTING 144 MG/DL (70-100); MAGNESIUM LEVEL 2.1 MG/DL (1.8-2.4); SODIUM LEVEL 136 MEQ/L (136-145)
[2018-07-26] MEDS ORDERED: POTASSIUM CHLORIDE 10 MEQ SR TABLET PO ONE ×2 (06:15→12:00)
--- NOTE | 2018-07-26 07:47 | REP ---
CT BRAIN WITHOUT CONTRAST: CT brain performed without IV contrast. COMPARISON: 05/06/2018 There is again encephalomalacia seen in both frontal lobes and the right temporal lobe. There is mild atrophy. There are mild periventricular small vessel ischemic changes, which are stable. There is no acute hemorrhage. There is no mass effect. There is no extra-axial fluid collection. There is no skull fracture. There is fluid in the left maxillary sinus. IMPRESSION: Stable chronic findings of the brain without evidence of acute intracranial hemorrhage or skull fracture. Visualized portion of the superior left maxillary sinus demonstrate fluid which may indicate sinusitis. Electronically Signed by Albin Rosa MD 07/26/2018 08:40 A
[2018-07-26] MEDS ORDERED: THIAMINE HCL 200 MG/2 ML VIAL (J3411) IM SCH (09:00)
[2018-07-26] MEDS: PROPRANOLOL 20 MG TAB PO SCH ×2 (09:49→21:07)
--- NOTE | 2018-07-26 10:25 | REP ---
Abdominal right upper quadrant ultrasound for elevated liver function tests: There is no cholelithiasis, gallbladder wall thickening or pericholecystic fluid. There is no intrahepatic or extrahepatic biliary duct dilatation. The common biliary duct measures 4.6 mm in diameter. The hepatic parenchyma is heterogeneous compatible with hepato steatosis. No hepatic masses are identified. The visualized portion of the pancreas is unremarkable. There is no right renal hydronephrosis, calculus, mass or cyst. The right kidney measures 12.3 x 5.8 x 5.3 cm and is normal size. There is no free fluid in the abdominal right upper quadrant. Impression: Heterogeneous hepatic parenchyma compatible with hepato steatosis. Otherwise, negative abdominal right upper quadrant ultrasound. Electronically Signed by Albin Kaur MD 07/26/2018 10:17 A
[2018-07-26 12:34] LABS: HEMOGLOBIN A1c 4.9 %
[2018-07-26] MEDS: OXAZEPAM 15 MG CAP PO SCH ×3 (12:37→23:58)
--- NOTE | 2018-07-26 13:08 | IPNPDOC ---
Date Seen The patient was seen on 07/26/18. Progress Note SUBJECTIVE: Patient is a 57-year-old male with alcohol withdrawal and seizure. Patient is evaluated at bedside this morning. He is alert and conversant and answering questions appropriately. He states that he is continuing to hallucinate and sees butterflies. He remains tremulous. He states that he drinks about 3x shot glasses of whiskey daily. Denies fevers, night sweats, chills, bleeding from any orifice, N/V/D. OBJECTIVE PHYSICAL EXAMINATION: VITAL SIGNS: Please see below. GENERAL: Well nourished, well developed, alert and conversant x3, answers questions appropriately, no acute distress. HEENT: Atraumatic, normocephalic, PERRL, EOMI, oral mucosa appears pink and [place], tongue fasciculations noted, nasal septum appears midline, nares are patent. CARDIOVASCULAR: Regular rate and rhythm, normal S1 and S2, no murmur, rub, click. RESPIRATORY: Clear to auscultation bilaterally, adequate inspiratory and expiratory airway excursion, symmetric airway entry, no focal consolidations, no wheeze, rhonchi, crackles. ABDOMINAL: Flat, soft, non-tender, non-distended, no stigmata of liver disease, liver edge palpated below the level of the rib cage. EXTREMITIES: No clubbing, no cyanosis, peripheral pulses equal and symmetrical. NEUROLOGICAL: Tremulousness. PSYCHOLOGICAL: Hallucinations, otherwise pleasant. LABORATORY DATA, IMAGING STUDIES, MICROBIOLOGY: Please see below. DVT prophylaxis ordered?: TEDs and sequentials, activity as tolerated. ASSESSMENT AND PLAN: This is a 57-year-old male with alcohol withdrawal and seizure. PROBLEMS: 1. Acute alcohol withdrawal with hallucinosis ICU CIWA protocol with Lorazepam as needed Oxazepam scheduled C/W Thiamine, Multivitamin, and Folic Acid Seizures precautions with neurological checks; neurology consulted; prior EEG from 05/2018 was within normal limits S/P Dexmedetomidine Abdominal US: Heterogeneous hepatic parenchyma compatible with hepato steatosis. Otherwise, negative abdominal right upper quadrant ultrasound. Advance diet as tolerated Maddrey's discriminant function = 9; no need for steroid therapy at this time EtOH level 0.041 OT/PT 2. Transaminitis 2/2 alcoholic hepatitis Improving Abdominal US as noted in #1 Monitor daily Abstain from EtOH 3. Hyperammonemia Start Lactulose; maintain 2-3 bowel movements daily Monitor I/Os 4. Pancytopenia 2/2 acute alcoholic hepatitis Monitor daily No overt signs of bleeding No pharmacological anticoagulation due to low platelets; continue with TEDs and sequentials 5. Electrolyte derangements Potassium and Magnesium both low Repleted Monitor daily 6 Anion gap Resolved Lactic acid or ABG not obtained Beta-hydroxybutyrate obtained; unlikely DKA as clinical picture incongruent with diabetes; obtaining hemoglobin A1c; more likely secondary to acute alcohol intoxication DISPOSITION: Pending clinical improvement. VS, I&O, 24H, Fishbone Vital Signs/I&O Vital Signs Date Time Temp Pulse Resp B/P (MAP) Pulse Ox O2 Delivery O2 Flow Rate FiO2 07/26/18 10:17 108 148/107 (121) 98 07/26/18 08:00 98.1 16 07/26/18 00:00 2.0 07/25/18 21:11 Room Air I&O- Last 24 Hours up to 6 AM 07/26/18 06:00 Intake Total 3078 ml Balance 3078 ml Laboratory Data 24H LABS Laboratory Tests 2 07/25/18 15:42: Immature Granulocyte % (Auto) 0.7, White Blood Count 4.4, Red Blood Count 3.81L, Hemoglobin 12.4L, Hematocrit 36.3L, Mean Corpuscular Volume 95.3, Mean Corpuscular Hemoglobin 32.5, Mean Corpuscular Hemoglobin Concent 34.2, Red Cell Distribution Width 13.3, Platelet Count 63L, Neutrophils (%) (Auto) 76.6H, Lymphocytes (%) (Auto) 11.7L, Monocytes (%) (Auto) 10.1H, Eosinophils (%) (Auto) 0.0, Basophils (%) (Auto) 0.9, Neutrophils # (Auto) 3.4, Lymphocytes # (Auto) 0.5L, Monocytes # (Auto) 0.4, Eosinophils # (Auto) 0.0, Basophils # (Auto) 0.0, Nucleated Red Blood Cells % (auto) 0.0, Immature Platelet Fraction 5.1, Prothrombin Time 14.4, Prothromb Time International Ratio 1.11, Anion Gap 20H, Glomerular Filtration Rate > 60.0, Calcium Level 9.2, Magnesium Level 1.3L, Aspartate Amino Transf (AST/SGOT) 217H, Alanine Aminotransferase (ALT/SGPT) 92H, Alkaline Phosphatase 133H, Total Bilirubin 2.6H, Direct Bilirubin 1.2H, Total Creatine Kinase 57, Creatine Kinase MB 1.1, Creatine Kinase MB Relative Index 1.93, Troponin I < 0.02, Total Protein 7.4, Albumin 3.4, Albumin/Globulin Ratio 0.85L, Ethyl Alcohol Level 0.041H 07/25/18 21:27: Bedside Glucose (Misc Panel) 218H 07/25/18 22:07: Anion Gap 9, Glomerular Filtration Rate > 60.0, Calcium Level 9.1, Magnesium Level 2.4, Blood Urea Nitrogen 14, Creatinine 1.15, Sodium Level 134L, Potassium Level 2.9*L, Chloride Level 97L, Carbon Dioxide Level 28, B-Hydroxybutyrate 15.77H 07/26/18 04:58: 07/26/18 05:00: Nucleated Red Blood Cells % (auto) 0.0, Anion Gap 5L, Glomerular Filtration Rate > 60.0, Blood Urea Nitrogen 14, Creatinine 0.96, Sodium Level 136, Potassium Level 3.0L, Chloride Level 101, Carbon Dioxide Level 30, Calcium Level 8.9, Aspartate Amino Transf (AST/SGOT) 178H, Alanine Aminotransferase (ALT/SGPT) 82H, Alkaline Phosphatase 128H, Total Bilirubin 2.8H, Total Protein 7.0, Albumin 3.2, Magnesium Level 2.1, Albumin/Globulin Ratio 0.84L 07/26/18 07:50: Ammonia 50H CBC/BMP Laboratory Tests 07/25/18 15:42 Red Blood Count 3.81 L, Mean Corpuscular Volume 95.3, Mean Corpuscular Hemoglobin 32.5, Mean Corpuscular Hemoglobin Concent 34.2, Red Cell Distribution Width 13.3, Neutrophils (%) (Auto) 76.6 H, Lymphocytes (%) (Auto) 11.7 L, Monocytes (%) (Auto) 10.1 H, Eosinophils (%) (Auto) 0.0, Basophils (%) (Auto) 0.9, Neutrophils # (Auto) 3.4, Lymphocytes # (Auto) 0.5 L, Monocytes # (Auto) 0.4, Eosinophils # (Auto) 0.0, Basophils # (Auto) 0.0 07/25/18 22:07 Calcium Level 9.1 07/26/18 05:00 Red Blood Count 3.62 L, Mean Corpuscular Volume 97.8 H, Mean Corpuscular Hemoglobin 33.1 H, Mean Corpuscular Hemoglobin Concent 33.9, Red Cell Distribution Width 13.3, Calcium Level 8.9, Aspartate Amino Transf (AST/SGOT) 178 H, Alanine Aminotransferase (ALT/SGPT) 82 H, Alkaline Phosphatase 128 H, Total Bilirubin 2.8 H, Total Protein 7.0, Albumin 3.2 ANSHU MONDRAGON DO Jul 26, 2018 13:08
[2018-07-26] MEDS: LACTULOSE 20 GM/30 ML SYRUP UD PO SCH ×2 (13:55→21:07)
[2018-07-26] MEDS: MULTIVITAMINS/MINERALS THERAP 1 TAB PO SCH (13:55)
[2018-07-26] MEDS: FOLIC ACID 1 MG TAB PO SCH (13:56)
[2018-07-27] VITALS: BP 115/79
[2018-07-27 04:00] VITALS: BP 146/97
[2018-07-27 05:14] LABS: HEMATOCRIT 30.9 % (42.0-52.0); HEMOGLOBIN 10.4 g/dl (13.5-17.5); MEAN CORPUSCULAR HEMOGLOBIN 32.7 pg (27.0-33.0); MEAN CORPUSCULAR HGB CONC 33.7 g/dl (32.0-36.5); MEAN CORPUSCULAR VOLUME 97.2 fl (80.0-96.0); RED BLOOD COUNT 3.18 10^6/uL (4.30-6.10); WHITE BLOOD COUNT 2.6 10^3/uL (4.0-10.0)
[2018-07-27 05:17] LABS: PLATELET COUNT, AUTOMATED 46 10^3/uL (150-450)
[2018-07-27] MEDS: NS 1,000 ML IV SCH (05:20)
[2018-07-27 05:38] LABS: ALBUMIN 2.7 GM/DL (3.2-5.2); ALT/SGPT 86 U/L (12-78); BILIRUBIN,TOTAL 1.8 MG/DL (0.2-1.0); BLOOD UREA NITROGEN 8 MG/DL (7-18); CALCIUM LEVEL 7.8 MG/DL (8.5-10.1); CARBON DIOXIDE LEVEL 28 MEQ/L (21-32); CHLORIDE LEVEL 105 MEQ/L (98-107); CREATININE FOR GFR 0.64 MG/DL (0.70-1.30); GLOMERULAR FILTRATION RATE > 60.0 (>56); GLUCOSE, FASTING 110 MG/DL (70-100); POTASSIUM SERUM 2.8 MEQ/L (3.5-5.1); SODIUM LEVEL 138 MEQ/L (136-145); TOTAL PROTEIN 5.8 GM/DL (6.4-8.2)
[2018-07-27] MEDS: OXAZEPAM 15 MG CAP PO SCH ×3 (06:00→18:03)
[2018-07-27] MEDS ORDERED: KCL 10MEQ/100ML SWI (KRUN) 10 MEQ in APPROPRIATE DILUENT 1 EA IV SCH (07:00)
[2018-07-27 08:00] VITALS: BP_SYST 165; BP_SYST 167; BP_DIAS 105; BP_DIAS 167
[2018-07-27] MEDS: LACTULOSE 20 GM/30 ML SYRUP UD PO SCH ×2 (08:38→20:03)
[2018-07-27] MEDS: MULTIVITAMINS/MINERALS THERAP 1 TAB PO SCH (08:39)
[2018-07-27] MEDS: FOLIC ACID 1 MG TAB PO SCH (08:39)
[2018-07-27] MEDS: PROPRANOLOL 20 MG TAB PO SCH ×2 (08:39→20:03)
[2018-07-27] MEDS: POTASSIUM CHLORIDE 10 MEQ SR TABLET PO SCH ×3 (08:43→20:01)
[2018-07-27] MEDS: THIAMINE 100 MG TAB PO SCH (08:43)
--- NOTE | 2018-07-27 10:25 | IPNPDOC ---
Date Seen The patient was seen on 07/27/18. Progress Note SUBJECTIVE: Patient is a 57-year-old male with alcohol withdrawal with seizure and hallucinations. Patient is evaluated at bedside this morning. He is alert and conversant and answering questions appropriately. He continues to report seeing butterflies/moths in his peripheral vision. He does not feel bugs crawling on his skin. He is not coughing/vomiting blood. No nausea, vomiting, abdominal pain. Tolerating diet. He has concerns that there is no one ot look after his Labrador-retriever, Bear, and wonders if you can leave the hospital to check on his dog. OBJECTIVE PHYSICAL EXAMINATION: VITAL SIGNS: Please see below. GENERAL: Well nourished, well developed, alert and conversant x3, answers questions appropriately, no acute distress. HEENT: Atraumatic, normocephalic, PERRL, EOMI, oral mucosa appears pink and moist, tongue fasciculations noted, nasal septum appears midline, nares are patent. CARDIOVASCULAR: Regular rate and rhythm, normal S1 and S2, no murmur, rub, click. RESPIRATORY: Clear to auscultation bilaterally, adequate inspiratory and expiratory airway excursion, symmetric airway entry, no focal consolidations, no wheeze, rhonchi, crackles. ABDOMINAL: Flat, soft, non-tender, non-distended, no stigmata of liver disease, liver edge palpated below the level of the rib cage. EXTREMITIES: No clubbing, no cyanosis, peripheral pulses equal and symmetrical, sequential compression stockings, upper extremities are tremulousness. NEUROLOGICAL: Tremulousness. PSYCHOLOGICAL: Hallucinations, otherwise pleasant. LABORATORY DATA, IMAGING STUDIES, MICROBIOLOGY: Please see below. DVT prophylaxis ordered?: TEDs and sequentials, activity as tolerated. ASSESSMENT AND PLAN: This is a 57-year-old male with alcohol withdrawal and seizure. PROBLEMS: 1. Acute alcohol withdrawal with hallucinosis ICU CIWA protocol with Lorazepam as needed Oxazepam scheduled C/W Thiamine, Multivitamin, and Folic Acid Seizures precautions with neurological checks; neurology consulted; prior EEG from 05/2018 was within normal limits S/P Dexmedetomidine Abdominal US: Heterogeneous hepatic parenchyma compatible with hepato steatosis. Otherwise, negative abdominal right upper quadrant ultrasound. Advance diet as tolerated Maddrey's discriminant function = 9; no need for steroid therapy at this time EtOH level 0.041 OT/PT --> continued rehabilitation once discharged PFS consulted for potential placement 2. Hypokalemia Supplementation provided on a scheduled basis Monitor potassium level Remain on telemetry 3. HTN Discontinued home medication list has Amlodipine listed Have restarted Amlodipine 5mg by mouth daily 4. Transaminitis 2/2 alcoholic hepatitis Stabilized Abdominal US as noted in #1 Monitor daily Abstain from EtOH 5. Hyperammonemia Start Lactulose; maintain 2-3 bowel movements daily Monitor I/Os 6. Pancytopenia 2/2 acute alcoholic hepatitis Monitor daily No overt signs of bleeding No pharmacological anticoagulation due to low platelets; continue with TEDs and sequentials 7. Anion gap Resolved Lactic acid or ABG not obtained Beta-hydroxybutyrate obtained; unlikely DKA as clinical picture incongruent with diabetes; hemoglobin A1c 4.9; more likely secondary to acute alcohol intoxication DISPOSITION: Pending clinical improvement. Continued PT/OT. Patient may leave AMA. Risks of leaving include seizures, falls, LOC, head trauma, and , to name a few. VS, I&O, 24H, [facility] Vital Signs/I&O Vital Signs Date Time Temp Pulse Resp B/P (MAP) Pulse Ox O2 Delivery O2 Flow Rate FiO2 07/27/18 08:39 165/104 07/27/18 08:00 105 07/27/18 08:00 98.2 18 96 07/26/18 00:00 2.0 07/25/18 21:11 Room Air I&O- Last 24 Hours up to 6 AM 07/27/18 05:59 Intake Total 5180 ml Output Total 900 ml Balance 4280 ml Laboratory Data 24H LABS Laboratory Tests 2 07/27/18 04:57: Nucleated Red Blood Cells % (auto) 0.0, Immature Platelet Fraction 6.8, Anion Gap 5L, Glomerular Filtration Rate > 60.0, Blood Urea Nitrogen 8, Creatinine 0.64L, Sodium Level 138, Potassium Level 2.8*L, Chloride Level 105, Carbon Dioxide Level 28, Calcium Level 7.8L, Aspartate Amino Transf (AST/SGOT) 183H, Alanine Aminotransferase (ALT/SGPT) 86H, Alkaline Phosphatase 107, Total Bilirubin 1.8H, Total Protein 5.8L, Albumin 2.7L, Albumin/Globulin Ratio 0.87L CBC/BMP Laboratory Tests 07/27/18 04:57 Red Blood Count 3.18 L, Mean Corpuscular Volume 97.2 H, Mean Corpuscular Hemoglobin 32.7, Mean Corpuscular Hemoglobin Concent 33.7, Red Cell Distribution Width 12.7, Calcium Level 7.8 L, Aspartate Amino Transf (AST/SGOT) 183 H, Alanine Aminotransferase (ALT/SGPT) 86 H, Alkaline Phosphatase 107, Total Bilirubin 1.8 H, Total Protein 5.8 L, Albumin 2.7 L ANSHU MONDRAGON DO Jul 27, 2018 10:25
[2018-07-27] MEDS: amLODIPine 5 MG TAB PO SCH (11:04)
[2018-07-27 12:00] VITALS: BP_SYST 148; BP_SYST 165; BP_DIAS 167; BP_DIAS 93
--- NOTE | 2018-07-27 14:17 | IPNPDOC ---
Text Note Date of Service The patient was seen on 07/27/18. NOTE Case discussed with Resident physician. Patient seen and examined S: patient here for EtOH withdraw and hypokalemia. He if off precedex drip since 07/26. His gait is significantly ataxic and patient is not oriented to place (thinks he is in a "[employer] restaurant"). He denies CP, N,V or diarrhea. O: Vitals as below General: pleasantly confused to place/time. alert to person HRRR LCTA A/P: 1. Acute alcohol withdrawal with hallucinations ICU CIWA protocol with Lorazepam as needed and scheduled oxazepam, thiamine, Multivitamin, and Folic Acid Lactulose for confusion/elevated ammonia levels OT/PT --> continued rehabilitation once discharged PFS consulted for potential placement 2. Hypokalemia - continue with replacement. Mg level normal unclear etiology of hypokalemia (no diuretics, no diarrhea, no vomiting, no insulin) 3. HTN- Amlodipine 5mg by mouth daily 4. Transaminitis 2/2 alcoholic hepatitis - monitor 5. Hyperammonemia - continue lactulose 6. Pancytopenia 2/2 acute alcoholic hepatitis Monitor daily No overt signs of bleeding No pharmacological anticoagulation due to low platelets; continue with TEDs and sequentials VS,Fishbone, I+O VS, Fishbone, I+O Laboratory Tests 07/27/18 04:57 Red Blood Count 3.18 L, Mean Corpuscular Volume 97.2 H, Mean Corpuscular Hemoglobin 32.7, Mean Corpuscular Hemoglobin Concent 33.7, Red Cell Distribution Width 12.7, Calcium Level 7.8 L, Aspartate Amino Transf (AST/SGOT) 183 H, Alanine Aminotransferase (ALT/SGPT) 86 H, Alkaline Phosphatase 107, Total Bilirubin 1.8 H, Total Protein 5.8 L, Albumin 2.7 L Vital Signs Date Time Temp Pulse Resp B/P (MAP) Pulse Ox O2 Delivery O2 Flow Rate FiO2 07/27/18 12:00 105 165/167 07/27/18 12:00 97.8 19 96 07/26/18 00:00 2.0 07/25/18 21:11 Room Air l I&O- Last 24 Hours up to 6 AM 07/27/18 06:00 Intake Total 4460 ml Output Total 1500 ml Balance 2960 ml KRZYSZTOF NAILS DO Jul 27, 2018 14:16
[2018-07-27 16:00] VITALS: BP 153/104
--- NOTE | 2018-07-27 17:44 | CR ---
DATE OF CONSULTATION: 07/26/2018 REFERRING PROVIDER: Nurse Practitioner Octavia Jerez. REASON CONSULTATION: Seizures secondary to alcohol withdrawal. Erwin Castillo is a 57-year-old male with a longstanding history of alcohol withdrawal seizures. The patient again presented to [facility] after being intoxicated, found incontinent and postictal. The patient required multiple doses of Ativan. He is being treated for delirium tremens. The patient states that he continues to drink alcohol on a regular basis to avoid delirium tremens. The patient presently is in the intensive care unit (ICU). He is not intubated. The patient is able to answer questions and participate with examination. He does appear to be slightly tremulous. He denies any headache, chest pain, shortness of breath, palpitations. He denies any dysarthria, dysphagia, weakness of the arms or legs or numbness of the arms or legs, or ataxia, vertigo, or aphasia at this time. REVIEW OF SYSTEMS: 14-point review of systems obtained and is negative except as per history of the present illness. PAST MEDICAL HISTORY: Hypertension, alcohol-related seizure disorder. PAST SURGICAL HISTORY: Carpal tunnel repair. FAMILY HISTORY: Noncontributory. SOCIAL HISTORY: The patient is a heavy alcoholic, last drink was 2 days ago. Denies use of any tobacco or illicit drugs. HOME MEDICATIONS: - lisinopril. PHYSICAL EXAMINATION: Blood pressure is 132/92, pulse rate 77, respiratory rate is 16, temperature is 97.7 degrees Fahrenheit, oxygenation 95% on room air. Head CT reveals encephalomalacia of bilateral frontal lobes, right temporal lobe mild atrophy noted. Laboratory data shows significantly elevated AST, ALT, ammonia level of 50, alcohol level was elevated at 0.41, WBC count was neutropenic at 2.6. PHYSICAL EXAMINATION: The patient is awake, awake, alert, oriented to person, place and time. Speech, language, comprehension and repetition are intact; however, the patient is slow to respond at times. Cranial nerves II-XII are intact. Pupils are round, reactive. Extraocular movements are without any significant ataxia. Hearing subjectively equal. Tongue appears to be midline. There is no pronator drift. Strength is 5/5 including bilateral deltoids, biceps and triceps, handgrip, iliopsoas. Tremors are present in bilateral upper extremities. Deep tendon reflexes are reduced distally and present in the upper extremities at 2s. Sensory is intact to light touch in all four extremities. Gait deferred. 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 Unclear whether this is trauma related or from prior stroke. The patient's seizures appear to be alcohol withdrawal. Recommend continued supportive care for delirium tremens. Would hold off on starting any antiepileptic medications at this time. Patient advised no driving, operating heavy machinery, climbing ladders, working from heights, etcetera for the next 12 months. The patient can followup with primary care provider as scheduled and neurology as an outpatient.
[2018-07-27 18:48] LABS: BLOOD UREA NITROGEN 5 MG/DL (7-18); CALCIUM LEVEL 7.9 MG/DL (8.5-10.1); CARBON DIOXIDE LEVEL 29 MEQ/L (21-32); CHLORIDE LEVEL 101 MEQ/L (98-107); CREATININE FOR GFR 0.69 MG/DL (0.70-1.30); GLOMERULAR FILTRATION RATE > 60.0 (>56); GLUCOSE, FASTING 156 MG/DL (70-100); POTASSIUM SERUM 3.1 MEQ/L (3.5-5.1); SODIUM LEVEL 136 MEQ/L (136-145)
[2018-07-27 20:00] VITALS: BP 152/94
--- NOTE | 2018-07-27 22:42 | EEG ---
DATE OF PROCEDURE: 07/26/2018 REFERRING PHYSICIAN: Dr. Mercado DIAGNOSIS: Alcohol withdrawal seizure. EEG NUMBER: [id number] HISTORY: The patient is a 57-year-old man with a history of alcoholism who was admitted to [facility] due to acute alcohol withdrawal and seizure. This EEG was done to rule out epileptic potential. He is currently taking Precedex, Serax, Ativan, Thiamine, & folic acid, etc. TECHNICAL DESCRIPTION: This digital EEG was recorded by 21 scalp, ear and two EKG electrodes and was reviewed in bipolar and referential montages following reformatting in 10-20 international electrode placement system. INTERPRETATION The patient was noted to be in awake and drowsy states during this EEG. Resting awake background rhythm consisted of 15 Hz beta activity which was symmetric bilaterally. Hyperventilation could not be performed. Photic stimulation remained unremarkable. Stage I and II sleep were reviewed and were symmetric bilaterally. No focal, lateralizing or epileptiform abnormalities were seen. No clinical or electrographic seizures were recorded. EKG revealed normal sinus rhythm. CONCLUSION: This EEG in awake, drowsy states, stage I and II sleep is within normal limits. Excessive beta activity is likely due to medication effect. MTDD
[2018-07-28] VITALS (7 sets, daily range): BP systolic 118–168; BP diastolic 76–108
[2018-07-28] MEDS: OXAZEPAM 15 MG CAP PO SCH ×5 (00:54→23:34)
[2018-07-28 05:35] LABS: HEMATOCRIT 33.8 % (42.0-52.0); HEMOGLOBIN 11.5 g/dl (13.5-17.5); MEAN CORPUSCULAR HEMOGLOBIN 33.2 pg (27.0-33.0); MEAN CORPUSCULAR VOLUME 97.7 fl (80.0-96.0); PLATELET COUNT, AUTOMATED 76 10^3/uL (150-450); RED BLOOD COUNT 3.46 10^6/uL (4.30-6.10); WHITE BLOOD COUNT 2.8 10^3/uL (4.0-10.0)
[2018-07-28 05:42] LABS: INR 1.12; PROTHROMBIN TIME 14.6 SECONDS (12.1-14.4)
[2018-07-28 05:57] LABS: ALBUMIN 2.9 GM/DL (3.2-5.2); ALT/SGPT 111 U/L (12-78); BILIRUBIN,TOTAL 1.3 MG/DL (0.2-1.0); BLOOD UREA NITROGEN 4 MG/DL (7-18); CALCIUM LEVEL 8.3 MG/DL (8.5-10.1); CARBON DIOXIDE LEVEL 32 MEQ/L (21-32); CHLORIDE LEVEL 102 MEQ/L (98-107); CREATININE FOR GFR 0.62 MG/DL (0.70-1.30); GLOMERULAR FILTRATION RATE > 60.0 (>56); GLUCOSE, FASTING 117 MG/DL (70-100); POTASSIUM SERUM 3.2 MEQ/L (3.5-5.1); SODIUM LEVEL 137 MEQ/L (136-145); TOTAL PROTEIN 6.4 GM/DL (6.4-8.2)
--- NOTE | 2018-07-28 09:01 | IPNPDOC ---
Text Note Date of Service The patient was seen on 07/28/18. NOTE S: patient seen and examined with resident present. Patient with no complains. no N no V. no CP, no SOB O: Vitals as below General: pleasant, NAD, AAOx3 with current moments of lucidity HRRR LCTA Ext: angel mayberry A/P: 1. Acute alcohol withdrawal with hallucinations transfer to [facility] protocol with Lorazepam as needed and scheduled oxazepam, thiamine, Multivitamin, and Folic Acid Lactulose for confusion/elevated ammonia levels OT/PT --> continued rehabilitation once discharged PFS consulted for potential placement 2. Alcohol induced withdraw seizures - no reoccurance. 3. HTN- Amlodipine 5mg by mouth daily 4. Transaminitis 2/2 alcoholic hepatitis - monitor 5. Hyperammonemia - continue lactulose 6. Pancytopenia 2/2 acute alcoholic hepatitis Monitor daily No overt signs of bleeding No pharmacological anticoagulation due to low platelets; continue with TEDs and sequential 7. Hypokalemia - improving; continue with replacement. Current Medications Amlodipine Besylate (Norvasc) 5 mg DAILY PO Last administered on 07/27/18at 11 :04; Start 07/27/18 at 09:00 Folic Acid (Folic Acid) 1 mg DAILY PO Last administered on 07/27/18at 08:39; Start 07/26/18 at 09:00 Lactulose (Cephulac) 15 ml BID PO Last administered on 07/27/18at 20:03; Start 07/26/18 at 09:00 Lorazepam (Ativan) 1 mg Q1HP PRN IV ANXIETY/AGITATION Last administered on 07/26/18at 04:05; Start 07/26/18 at 00:45 Multivitamins (Theragram-M) 1 tab DAILY PO Last administered on 07/27/18at 08:39; Start 07/26/18 at 09:00 Nicotine (Nicoderm Cq 21mg) 1 patch DAILY TD ; Start 07/28/18 at 09:00 Oxazepam (Serax) 15 mg Q6H PO Last administered on 07/28/18at 06:18; Start 07/10 08/27 at 12:00 Potassium Chloride (Micro-K Extencaps) 40 meq TID PO Last administered on 07/27/18at 20:01; Start 07/27/18 at 09:00 Propranolol HCl (Inderal) 40 mg BID PO Last administered on 07/27/18at 20:03; Start 07/25/18 at 21:00 Thiamine HCl (Thiamine HCl) 100 mg DAILY PO Last administered on 07/27/18at 08:43; Start 07/27/18 at 09:00 VS,Fishbone, I+O VS, Fishbone, I+O Laboratory Tests 07/27/18 18:12 Calcium Level 7.9 L 07/28/18 05:02 Calcium Level 8.3 L, Red Blood Count 3.46 L, Mean Corpuscular Volume 97.7 H, Mean Corpuscular Hemoglobin 33.2 H, Mean Corpuscular Hemoglobin Concent 34.0, Red Cell Distribution Width 13.0, Aspartate Amino Transf (AST/SGOT) 192 H, Alanine Aminotransferase (ALT/SGPT) 111 H, Alkaline Phosphatase 114, Total Bilirubin 1.3 H, Total Protein 6.4, Albumin 2.9 L Vital Signs Date Time Temp Pulse Resp B/P (MAP) Pulse Ox O2 Delivery O2 Flow Rate FiO2 07/28/18 04:00 97.9 71 18 156/98 (117) 100 07/26/18 00:00 2.0 07/25/18 21:11 Room Air I&O- Last 24 Hours up to 6 AM 07/28/18 06:00 Intake Total 2080 ml Output Total 3000 ml Balance -920 ml KRZYSZTOF NAILS DO Jul 28, 2018 09:01
[2018-07-28] MEDS: amLODIPine 5 MG TAB PO SCH (09:10)
[2018-07-28] MEDS: NICOTINE 21MG/24HR 1 EA TRANSDERMAL TD SCH (09:10)
[2018-07-28] MEDS: LACTULOSE 20 GM/30 ML SYRUP UD PO SCH ×2 (09:10→20:11)
[2018-07-28] MEDS: FOLIC ACID 1 MG TAB PO SCH (09:11)
[2018-07-28] MEDS: MULTIVITAMINS/MINERALS THERAP 1 TAB PO SCH (09:11)
[2018-07-28] MEDS: POTASSIUM CHLORIDE 10 MEQ SR TABLET PO SCH ×3 (09:11→20:11)
[2018-07-28] MEDS: THIAMINE 100 MG TAB PO SCH (09:11)
[2018-07-28] MEDS: PROPRANOLOL 20 MG TAB PO SCH ×2 (09:12→20:13)
--- NOTE | 2018-07-28 14:13 | IPNPDOC ---
Date Seen The patient was seen on 07/28/18. Progress Note SUBJECTIVE: Patient is a 57-year-old male with alcohol withdrawal with seizure and hallucinations. Patient is evaluated at bedside this morning. He is alert and conversant and answering questions appropriately. He is eating breakfast during my evaluation. Patient states that he is no longer seeing butterflies in the periphery of his vision. He is not nauseated, vomiting, having chest pain, feeling short of breath, coughing or vomiting up blood. He is adamant about being on anti-seizure medications. OBJECTIVE PHYSICAL EXAMINATION: VITAL SIGNS: Please see below. GENERAL: Well nourished, well developed, alert and conversant x3, answers questions appropriately, sitting up in a chair at bedside eating breakfast, no acute distress. HEENT: Atraumatic, normocephalic, PERRL, EOMI, oral mucosa appears pink and moist, tongue fasciculations noted, nasal septum appears midline, nares are patent. CARDIOVASCULAR: Regular rate and rhythm, normal S1 and S2, no murmur, rub, cli ck. RESPIRATORY: Clear to auscultation bilaterally, adequate inspiratory and expiratory airway excursion, symmetric airway entry, no focal consolidations, no wheeze, rhonchi, crackles. ABDOMINAL: Flat, soft, non-tender, non-distended, no stigmata of liver disease, bowel sound appreciated. EXTREMITIES: No clubbing, no cyanosis, peripheral pulses equal and symmetrical, sequential compression stockings, upper extremities are tremulousness. NEUROLOGICAL: Tremulousness. PSYCHOLOGICAL: Mood and affect appropriate. LABORATORY DATA, IMAGING STUDIES, MICROBIOLOGY: Please see below. DVT prophylaxis ordered?: TEDs and sequentials, activity as tolerated. ASSESSMENT AND PLAN: This is a 57-year-old male with alcohol withdrawal and seizure. PROBLEMS: 1. Acute alcohol withdrawal with hallucinosis and alcohol withdrawal seizures Neurology consulted; no medication recommendations; follow-up with primary care provider Downgraded to Med/Surg CIWA protocol with Lorazepam as needed Oxazepam scheduled C/W Thiamine, Multivitamin, and Folic Acid Seizures precautions EEG on 07/26/2018: This EEG in awake, drowsy states, stage I and II sleep is within normal limits. Excessive beta activity is likely due to medication effect. S/P Dexmedetomidine Abdominal US: Heterogeneous hepatic parenchyma compatible with hepato steatosis. Otherwise, negative abdominal right upper quadrant ultrasound. Regular diet Maddrey's discriminant function = 9; no need for steroid therapy at this time EtOH level 0.041 OT/PT --> continued rehabilitation once discharged PFS: return home once medically discharged 2. Hypokalemia Supplementation provided on a scheduled basis Monitor potassium level No events on telemetry; downgraded to Med/Surg 3. HTN Discontinued home medication list has Amlodipine listed Have restarted Amlodipine 5mg by mouth daily 4. Transaminitis 2/2 alcoholic hepatitis Stabilized Abdominal US as noted in #1 Monitor daily Abstain from EtOH 5. Hyperammonemia Start Lactulose; maintain 2-3 bowel movements daily Monitor I/Os 6. Pancytopenia 2/2 acute alcoholic hepatitis Monitor daily No overt signs of bleeding No pharmacological anticoagulation due to low platelets; continue with TEDs and sequentials 7. Anion gap Resolved Lactic acid or ABG not obtained Beta-hydroxybutyrate obtained; unlikely DKA as clinical picture incongruent with diabetes; hemoglobin A1c 4.9; more likely secondary to acute alcohol intoxication DISPOSITION: Pending clinical improvement. Continued PT/OT. ARU screen. VS, I&O, 24H, [facility] Vital Signs/I&O Vital Signs Date Time Temp Pulse Resp B/P (MAP) Pulse Ox O2 Delivery O2 Flow Rate FiO2 07/28/18 08:00 98.2 88 16 168/108 (128) 95 07/26/18 00:00 2.0 07/25/18 21:11 Room Air I&O- Last 24 Hours up to 6 AM 07/28/18 06:00 Intake Total 2080 ml Output Total 3000 ml Balance -920 ml Laboratory Data 24H LABS Laboratory Tests 2 07/27/18 18:12: Anion Gap 6L, Glomerular Filtration Rate > 60.0, Blood Urea Nitrogen 5L, Creatinine 0.69L, Sodium Level 136, Potassium Level 3.1L, Chloride Level 101, Carbon Dioxide Level 29, Calcium Level 7.9L 07/28/18 05:02: Anion Gap 3L, Glomerular Filtration Rate > 60.0, Blood Urea Nitrogen 4L, Creatinine 0.62L, Sodium Level 137, Potassium Level 3.2L, Chloride Level 102, Carbon Dioxide Level 32, Calcium Level 8.3L, Nucleated Red Blood Cells % (auto) 0.0, Immature Platelet Fraction 6.2, Prothrombin Time 14.6H, Prothromb Time International Ratio 1.12, Aspartate Amino Transf (AST/SGOT) 192H, Alanine Aminotransferase (ALT/SGPT) 111H, Alkaline Phosphatase 114, Total Bilirubin 1.3H, Total Protein 6.4, Albumin 2.9L, Albumin/Globulin Ratio 0.83L CBC/BMP Laboratory Tests 07/27/18 18:12 Calcium Level 7.9 L 07/28/18 05:02 Calcium Level 8.3 L, Red Blood Count 3.46 L, Mean Corpuscular Volume 97.7 H, Mean Corpuscular Hemoglobin 33.2 H, Mean Corpuscular Hemoglobin Concent 34.0, Red Cell Distribution Width 13.0, Aspartate Amino Transf (AST/SGOT) 192 H, Alanine Aminotransferase (ALT/SGPT) 111 H, Alkaline Phosphatase 114, Total Bilirubin 1.3 H, Total Protein 6.4, Albumin 2.9 L ANSHU MONDRAGON DO Jul 28, 2018 14:13
[2018-07-29] MEDS: OXAZEPAM 15 MG CAP PO SCH ×2 (05:55→11:34)
[2018-07-29 06:00] VITALS: BP 155/99
[2018-07-29 07:20] LABS: HEMATOCRIT 31.9 % (42.0-52.0); HEMOGLOBIN 10.7 g/dl (13.5-17.5); MEAN CORPUSCULAR HEMOGLOBIN 32.5 pg (27.0-33.0); MEAN CORPUSCULAR HGB CONC 33.5 g/dl (32.0-36.5); RED BLOOD COUNT 3.29 10^6/uL (4.30-6.10); WHITE BLOOD COUNT 3.1 10^3/uL (4.0-10.0)
[2018-07-29 07:26] LABS: PLATELET COUNT, AUTOMATED 90 10^3/uL (150-450)
[2018-07-29 07:32] LABS: INR 1.08; PROTHROMBIN TIME 13.7 SECONDS (11.8-14.0)
[2018-07-29 07:54] LABS: ALBUMIN 2.8 GM/DL (3.2-5.2); ALT/SGPT 120 U/L (12-78); BLOOD UREA NITROGEN 4 MG/DL (7-18); CALCIUM LEVEL 8.6 MG/DL (8.5-10.1); CARBON DIOXIDE LEVEL 29 MEQ/L (21-32); CHLORIDE LEVEL 105 MEQ/L (98-107); CREATININE FOR GFR 0.66 MG/DL (0.70-1.30); GLOMERULAR FILTRATION RATE > 60.0 (>56); GLUCOSE, FASTING 127 MG/DL (70-100); POTASSIUM SERUM 3.7 MEQ/L (3.5-5.1); SODIUM LEVEL 139 MEQ/L (136-145); TOTAL PROTEIN 6.4 GM/DL (6.4-8.2)
[2018-07-29] MEDS: LACTULOSE 20 GM/30 ML SYRUP UD PO SCH (10:01)
[2018-07-29] MEDS: FOLIC ACID 1 MG TAB PO SCH (10:02)
[2018-07-29] MEDS: PROPRANOLOL 20 MG TAB PO SCH (10:03)
[2018-07-29] MEDS: MULTIVITAMINS/MINERALS THERAP 1 TAB PO SCH (10:04)
[2018-07-29] MEDS: THIAMINE 100 MG TAB PO SCH (10:04)
[2018-07-29 10:05] VITALS: BP 155/99
[2018-07-29] MEDS: amLODIPine 5 MG TAB PO SCH (10:05)
[2018-07-29] MEDS: POTASSIUM CHLORIDE 10 MEQ SR TABLET PO SCH (10:06)
[2018-07-29] MEDS: NICOTINE 21MG/24HR 1 EA TRANSDERMAL TD SCH (10:06)
[2018-07-29] MEDS ORDERED: VITMTA PO (10:19)
[2018-07-29] MEDS ORDERED: PROP20TA PO (10:19)
[2018-07-29] MEDS ORDERED: FOLI1TAB11 PO (10:19)
[2018-07-29] MEDS ORDERED: AMLO5TAB6 PO (10:19)
[2018-07-29] MEDS ORDERED: NICO21PAT TD (10:19)
[2018-07-29] MEDS ORDERED: THIA100TA PO (10:19)
[2018-07-29] MEDS ORDERED: Lactulose Syrup PO (10:19)
--- NOTE | 2018-07-29 10:40 | DS.PDOC ---
Discharge Summary General Date of Admission Jul 25, 2018 at 19:48 Date of Discharge 07/29/2018 Attending Physician: KRZYSZTOF NAILS DO Specialist/Consultants Involve: DM ASHTON MD Specialist/Consultants Involve Primary care provider: [facility] Discharge Summary PROCEDURES PERFORMED DURING STAY: 1. EEG - This EEG in awake, drowsy states, stage I and II sleep is within normal limits. Excessive beta activity is likely due to medication effect. ADMITTING DIAGNOSES: 1. Alcohol abuse and withdrawal 2. Thrombocytopenia 3. Seizure activity 4. Metabolic acidosis 5. Metabolic derangement 6. Frequent falls DISCHARGE DIAGNOSES: 1. Acute alcohol withdrawal with hallucinosis and alcohol withdrawal seizures 2. Hypokalemia 3. HTN 4. Transaminitis secondary to alcoholic hepatitis 5. Hyperammonemia 6. Pancytopenia secondary to acute alcoholic hepatitis 7. Anion gap COMPLICATIONS/CHIEF COMPLAINT: Alcohol Withdrawal Delirium. HISTORY OF PRESENT ILLNESS: Mr. Castillo is a 57-year-old male, brought to the hospital after he passed out and was incontinent. Patient has a past medical history significant for alcohol abuse, hypertension, withdrawal seizures. It was thought he had had a seizure episode while waiting to by alcohol. In the emergency room, patient was confused, requiring multiple doses of Ativan without achieving sedation. He presented with marked metabolic derangement with a potassium level that was low at 2.5 and magnesium of 1.3. Anion gap was 20. Patient was also tachycardic and hypertensive. Serum alcohol level was 0.041. HOSPITAL COURSE: Patient was admitted. He was started on Precedex as he had received multiple doses of Ativan in the Emergency Department without affect. Followed CIWA protocol and provided appropriate medications with Thiamine, Folic Acid, Multivitamin. Monitored for signs of bleeding. Neurology consulted for alcohol withdrawal seizures. No antiepileptics recommended. Advised no driving, operating heavy machinery, climbing ladders, working from heights, etcetera for the next 12 month EEG obtained as reported above. Electrolyte derangements repleted. Imaging as noted below. PT and OT ordered. Patient progressed appropriately with therapy and was determined safe to return home. Blood pressure noted to be elevated. Started Amlodipine 5mg by mouth daily. DISCHARGE MEDICATIONS: Please see below. ALLERGIES: Please see below. PHYSICAL EXAMINATION ON DISCHARGE: VITAL SIGNS: Please see below. GENERAL: Well nourished, well developed, alert and conversant x3, answers questions appropriately, sitting up in a chair at bedside eating breakfast, no acute distress. HEENT: Atraumatic, normocephalic, PERRL, EOMI, oral mucosa appears pink and moist, tongue fasciculations noted, nasal septum appears midline, nares are patent. CARDIOVASCULAR: Regular rate and rhythm, normal S1 and S2, no murmur, rub, click. RESPIRATORY: Clear to auscultation bilaterally, adequate inspiratory and expiratory airway excursion, symmetric airway entry, no focal consolidations, no wheeze, rhonchi, crackles. ABDOMINAL: Flat, soft, non-tender, non-distended, no stigmata of liver disease, bowel sound appreciated. EXTREMITIES: No clubbing, no cyanosis, peripheral pulses equal and symmetrical, sequential compression stockings, upper extremities are tremulousness. NEUROLOGICAL: Tremulousness. PSYCHOLOGICAL: Mood and affect appropriate. LABORATORY DATA: Please see below. IMAGIN. Abdominal US: Heterogeneous hepatic parenchyma compatible with hepato steatosis. Otherwise, negative abdominal right upper quadrant ultrasound. PROGNOSIS: Stable. ACTIVITY: As tolerated. DIET: As tolerated. DISCHARGE PLAN: As below. DISPOSITION: Home. DISCHARGE INSTRUCTIONS: 1. [facility] in 7-10 days. 2. Take all medications as prescribed. 3. Abstain from alcohol consumption. 4. Return to the nearest Emergency Department should your symptoms worsen or persist. ITEMS TO FOLLOWUP ON ON OUTPATIENT: 1. Alcohol abuse. 2. Tobacco dependence. 3. HTN. DISCHARGE CONDITION: Stable. TIME SPENT ON DISCHARGE: 32 minutes. Vital Signs/I&Os Vital Signs Date Time Temp Pulse Resp B/P (MAP) Pulse Ox O2 Delivery O2 Flow Rate FiO2 07/29/18 10:05 75 155/99 07/29/18 06:00 98.0 19 97 07/26/18 00:00 2.0 07/25/18 21:11 Room Air I&O- Last 24 Hours up to 6 AM 07/29/18 06:00 Intake Total 1560 ml Output Total 250 ml Balance 1310 ml Laboratory Data Labs 24H Laboratory Tests 2 07/29/18 06:48: Nucleated Red Blood Cells % (auto) 0.0, Immature Platelet Fraction 4.9, Prothrombin Time 13.7, Prothromb Time International Ratio 1.08, Anion Gap 5L, Glomerular Filtration Rate > 60.0, Blood Urea Nitrogen 4L, Creatinine 0.66L, Sodium Level 139, Potassium Level 3.7, Chloride Level 105, Carbon Dioxide Level 29, Calcium Level 8.6, Aspartate Amino Transf (AST/SGOT) 160H, Alanine Aminotransferase (ALT/SGPT) 120H, Alkaline Phosphatase 109, Total Bilirubin 1.0, Total Protein 6.4, Albumin 2.8L, Albumin/Globulin Ratio 0.78L CBC/BMP Laboratory Tests 07/29/18 06:48 Red Blood Count 3.29 L, Mean Corpuscular Volume 97.0 H, Mean Corpuscular Hemoglobin 32.5, Mean Corpuscular Hemoglobin Concent 33.5, Red Cell Distribution Width 13.6, Calcium Level 8.6, Aspartate Amino Transf (AST/SGOT) 160 H, Alanine Aminotransferase (ALT/SGPT) 120 H, Alkaline Phosphatase 109, Total Bilirubin 1.0, Total Protein 6.4, Albumin 2.8 L Discharge Medications Scheduled Amlodipine Besylate (Amlodipine Besylate) 5 Mg Tablet, 5 MG PO DAILY Folic Acid (Folic Acid) 1 Mg Tablet, 1 MG PO DAILY Multivitamins (Thera M Plus Tablet) 1 Each Tablet, 1 TAB PO DAILY Nicotine (Nicotine Patch) 21 Mg Patch.td24, 1 PATCH TD DAILY Propranolol HCl (Propranolol HCl) 20 Mg Tablet, 40 MG PO BID Thiamine Hcl (Vitamin B-1) 100 Mg Tablet, 100 MG PO DAILY [Lactulose Syrup] 30 ML SYRP, 15 ML PO BID Maintain 2-3 bowel movements daily Miscellaneous Medications [Patient Comments] , (Reported) PATIENT STATES HE TAKES LINSINOPRIL (UNKNOWN STRENGTH) ONLY ON DAYS HE IS NOT DRINKING. WILL GET IN TOUCH WITH SHARATH IN THE MORNING FOR CONFIRMATION Allergies Coded Allergies: No Known Allergies (Unverified , 04/18/13) ANSHU MONDRAGON DO Jul 29, 2018 10:40
== END 2018-07-29 13:45 | disposition home or self-care (01) | DRG 898 ==
LOC: M ED 15:12 → EDBD 15:12 → M ED INP 19:48 → M ICU 21:19 → M MS5PR 07-28 16:45
PROVIDERS: ADMIT Hospitalist; ATTEND Family Medicine
DX: F10.221 Alcohol dependence with intoxication delirium (principal); E87.2 Acidosis; D61.818 Other pancytopenia; E72.20 Disorder of urea cycle metabolism, unspecified; I10 Essential (primary) hypertension; G40.909 Epilepsy, unspecified, not intractable, without status epilepticus; D69.6 Thrombocytopenia, unspecified; E87.6 Hypokalemia; E83.42 Hypomagnesemia; K70.10 Alcoholic hepatitis without ascites

== ENCOUNTER 2018-08-15 06:34 | Emergency (ER) | payer OTHER ==
[~2018-08-15] VITALS: Ht 185.4 cm; Wt 90.9 kg
[~2018-08-15 06:34] MED LIST changes: -FOLIC ACID 1 MG TAB PO SCH; +Lactulose Syrup PO; -MULTIVITAMINS/MINERALS THERAP 1 TAB PO SCH; +PATIENT COMMENTS; +PROP20TA PO
[2018-08-15] MEDS ORDERED: NICO21DI9 (06:51)
[2018-08-15] MEDS ORDERED: PROP20TA72 (06:51)
[2018-08-15] MEDS ORDERED: NS 500 ML IV ONE (07:15)
--- NOTE | 2018-08-15 07:28 | REPVR ---
EXAM: CT Head Without Contrast EXAM DATE/TIME: 08/15/2018 7:16 AM CLINICAL HISTORY: 57 years old, male; Syncope and collapse TECHNIQUE: Imaging protocol: Axial computed tomography images of the head without contrast. Radiation optimization: All CT scans at this facility use at least one of these dose optimization techniques: automated exposure control; mA and/or kV adjustment per patient size (includes targeted exams where dose is matched to clinical indication); or iterative reconstruction. COMPARISON: CT Head without contrast 07/25/2018 3:37 PM FINDINGS: Brain: There is no acute intracranial abnormality. Mild prominence of ventricles and sulci representing volume loss. Mild small vessel ischemic changes are seen. There is no mass, midline shift, or mass effect. Encephalomalacia and bilateral inferior frontal lobe and right temporal lobe similar to previous study likely old. There is no evidence of hemorrhage. There is no extra-axial fluid collection. Basal cisterns are patent. Ventricles: See Brain Finding. Bones/joints: The visualized osseous structures are unremarkable. Sinuses: Visualized sinuses are clear. Mastoid air cells: Mastoid air cells are clear. Soft tissues: Unremarkable. IMPRESSION: 1. Mild volume loss and small vessel ischemic changes. . 2. No acute intracranial abnormality. Electronically signed by: Dayami Mccord On 08/15/2018 07:28:28 AM
[2018-08-15 07:45] LABS: VENOUS BASE EXCESS 2.6 (-2.0-2.0); VENOUS HCO3 26.7 MEQ/L (23.0-27.0); VENOUS PARTIAL PRESSURE CO2 39.8 mmHg (38.0-50.0); VENOUS PARTIAL PRESSURE O2 46.5 mmHg (30.0-50.0); VENOUS PH 7.445 UNITS (7.330-7.430); VENOUS STANDARD HCO3 26.3 MEQ/L
[2018-08-15 07:51] LABS: BASO % 1.1 % (0.0-1.0); EOS % 0.7 % (0.0-3.0); HEMATOCRIT 38.9 % (42.0-52.0); HEMOGLOBIN 13.6 g/dl (13.5-17.5); LYMPH # 0.8 10^3/uL (1.5-4.5); LYMPH % 28.1 % (24.0-44.0); MEAN CORPUSCULAR HEMOGLOBIN 33.3 pg (27.0-33.0); MEAN CORPUSCULAR VOLUME 95.3 fl (80.0-96.0); MONO # 0.2 10^3/uL (0.0-0.8); MONO % 6.4 % (0.0-5.0); NEUTROPHILS # 1.7 10^3/uL (1.8-7.7); RED BLOOD COUNT 4.08 10^6/uL (4.30-6.10); WHITE BLOOD COUNT 2.7 10^3/uL (4.0-10.0)
[2018-08-15 07:54] LABS: PLATELET COUNT, AUTOMATED 47 10^3/uL (150-450)
[2018-08-15 08:07] LABS: INR 1.01
[2018-08-15 08:25] LABS: BLOOD UREA NITROGEN 21 MG/DL (7-18); CALCIUM LEVEL 9.4 MG/DL (8.5-10.1); CARBON DIOXIDE LEVEL 28 MEQ/L (21-32); CHLORIDE LEVEL 95 MEQ/L (98-107); CK-MB VALUE MASS < 1.0 NG/ML (<3.6); CPK CREATINE PHOSPHOKINASE 34 U/L (39-308); CREATININE FOR GFR 0.96 MG/DL (0.70-1.30); ETHYL ALCOHOL (ETHANOL) 0.216 % (0.000-0.010); GLOMERULAR FILTRATION RATE > 60.0 (>56); GLUCOSE, FASTING 111 MG/DL (70-100); MAGNESIUM LEVEL 1.9 MG/DL (1.8-2.4); MB/CK RELATIVE INDEX 2.94 (< OR =4); SODIUM LEVEL 136 MEQ/L (136-145); TROPONIN I < 0.02 NG/ML (< 0.10)
[2018-08-15] MEDS ORDERED: POTASSIUM CHLORIDE 10 MEQ SR TABLET PO ONE ×2 (08:45→10:15)
[2018-08-15] MEDS ORDERED: NS 1,000 ML IV ONE ×2 (10:45→12:30)
[2018-08-15 13:01] LABS: BILIRUBIN, URINE MANUAL NEGATIVE (NEGATIVE); GLUCOSE, URINE (UA) MANUAL NEGATIVE (NEGATIVE); KETONE, URINE MANUAL 2+ mg/dL (NEGATIVE); UROBILINOGEN, URINE MANUAL 4 MG mg/dl (NORMAL)
[2018-08-15 13:02] LABS: SQUAMOUS EPITHELIAL CELL URINE SMALL AMOUNT /hpf (SMALL AMT)
[2018-08-15 13:03] LABS: AMORPHOUS SEDIMENT, URINE MOD AMOUNT (NEGATIVE); BACTERIA, URINE SMALL AMOUNT; HYALINE CAST, URINE NONE SEEN /lpf (0-1); MUCUS, URINE LARGE AMOUNT (NEGATIVE); OTHER CRYSTALS, URINE AMM BIURATE /hpf
[2018-08-15 13:12] LABS: AMPHETAMINES LEVEL URINE NEGATIVE (NEGATIVE); BARBITURATES URINE NEGATIVE (NEGATIVE); BENZODIAZEPINES URINE NEGATIVE (NEGATIVE); CANNABINOIDS URINE NEGATIVE (NEGATIVE); COCAINE METABOLITE URINE NEGATIVE (NEGATIVE); METHADONE URINE NEGATIVE (NEGATIVE); OPIATES URINE NEGATIVE (NEGATIVE); PHENCYCLIDINE URINE NEGATIVE (NEGATIVE)
--- NOTE | 2018-08-15 14:03 | REP ---
Clinical: syncope/near syncopal episode. Comparison: 05/06/2018. Findings: The mediastinum and cardiac silhouette are stable and within normal limits for portable technique. The lung tellez are clear without acute consolidation, effusion, or pneumothorax. Skeletal structures are intact. Impression: No acute cardiopulmonary process appreciated. Electronically Signed by Herminio Gaston MD 08/15/2018 08:08 A
[2018-08-15 14:29] VITALS: BP 127/62
--- NOTE | 2018-08-15 15:40 | ECGEPIP ---
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
== END 2018-08-15 15:55 | disposition home or self-care (01) ==
LOC: M ED 06:34
DX: F10.129 Alcohol abuse with intoxication, unspecified (principal); E86.0 Dehydration; R00.0 Tachycardia, unspecified; I45.4 Nonspecific intraventricular block; R94.31 Abnormal electrocardiogram [ECG] [EKG]; I10 Essential (primary) hypertension; R56.9 Unspecified convulsions; Z79.899 Other long term (current) drug therapy; Z88.1 Allergy status to other antibiotic agents
CPT/HCPCS: 70450; 71045; 80048; 80307; 81000; 82550; 82553; 82803; 83735; 84443; 84484; 85025; 85049; 85055; 85610; 93005; 93041; 96360; 96361; 99285; G0480

== ENCOUNTER 2018-08-17 04:24 | Inpatient (IN) | payer OTHER ==
[~2018-08-17] VITALS: Ht 185.4 cm; Wt 93.2 kg
[~2018-08-17 04:24] MED LIST changes: +NICO21DI9; +PROP20TA72
[2018-08-17] MEDS ORDERED: LISI-1046 PO (04:38)
--- NOTE | 2018-08-17 07:34 | ECGEPIP ---
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
[2018-08-17 07:59] LABS: EOS % 1.5 % (0.0-3.0); HEMATOCRIT 32.9 % (42.0-52.0); HEMOGLOBIN 11.2 g/dl (13.5-17.5); LYMPH # 0.8 10^3/uL (1.5-4.5); LYMPH % 39.6 % (24.0-44.0); MEAN CORPUSCULAR HEMOGLOBIN 32.4 pg (27.0-33.0); MEAN CORPUSCULAR VOLUME 95.1 fl (80.0-96.0); MONO # 0.1 10^3/uL (0.0-0.8); MONO % 6.9 % (0.0-5.0); RED BLOOD COUNT 3.46 10^6/uL (4.30-6.10)
[2018-08-17 08:00] LABS: PLATELET COUNT, AUTOMATED 51 10^3/uL (150-450)
[2018-08-17] MEDS ORDERED: NS 1,000 ML IV ONE ×2 (08:00→10:00)
[2018-08-17 08:20] LABS: BLOOD UREA NITROGEN 13 MG/DL (7-18); CALCIUM LEVEL 8.3 MG/DL (8.5-10.1); CARBON DIOXIDE LEVEL 30 MEQ/L (21-32); CHLORIDE LEVEL 98 MEQ/L (98-107); CK-MB VALUE MASS < 1.0 NG/ML (<3.6); CPK CREATINE PHOSPHOKINASE 48 U/L (39-308); FREE T4 1.05 NG/DL (0.76-1.46); GLOMERULAR FILTRATION RATE > 60.0 (>56); GLUCOSE, FASTING 94 MG/DL (70-100); MAGNESIUM LEVEL 1.6 MG/DL (1.8-2.4); MB/CK RELATIVE INDEX 2.08 (< OR =4); POTASSIUM SERUM 3.1 MEQ/L (3.5-5.1); SODIUM LEVEL 138 MEQ/L (136-145); THYROID STIMULATING HORMONE 0.882 uIU/ML (0.358-3.740); TROPONIN I < 0.02 NG/ML (< 0.10)
--- NOTE | 2018-08-17 08:26 | REP ---
Chest x-ray: Two views. History: Lightheadedness . Comparison study: August 15, 2018 . Findings: The lungs are well inflated and free of infiltrate. The pleural angles are sharp. The heart size is normal. Pulmonary vasculature is not increased. No significant bony abnormality is seen. EKG monitoring electrodes overlie the chest. Impression: Negative chest x-ray. Electronically Signed by Bienvenido Ling MD 08/17/2018 08:18 A
[2018-08-17] MEDS ORDERED: POTASSIUM CHLORIDE 10 MEQ SR TABLET PO ONE (08:30)
[2018-08-17] MEDS ORDERED: PANTOPRAZOLE 40MG INJ (PROTONIX) (C9113) IV ONE (09:30)
[2018-08-17] MEDS ORDERED: PANTOPRAZOLE SODIUM 40 MG in D5W 50 ML IV SCH (10:00)
[2018-08-17] MEDS ORDERED: THIA100T7 PO (10:30)
[2018-08-17] MEDS ORDERED: FOLI1TAB11 PO (10:30)
[2018-08-17] MEDS ORDERED: LACT10SO29 PO (10:30)
[2018-08-17] MEDS ORDERED: VITMTA PO (10:30)
[2018-08-17] MEDS ORDERED: PROP20TA PO (10:30)
[2018-08-17] MEDS ORDERED: NICO21PAT TOP (10:30)
[2018-08-17] MEDS ORDERED: AMLO5TAB6 PO (10:30)
[2018-08-17] MEDS ORDERED: ACET500T15 PO (10:33)
[2018-08-17] MEDS ORDERED: ALEV220T22 PO (10:33)
[2018-08-17] MEDS ORDERED: MED REC COMMENT (10:35)
[2018-08-17 11:00] VITALS: BP 154/90
[2018-08-17] MEDS ORDERED: OCTREOTIDE ACETATE 1,200 MCG in NS 238.8 ML IV SCH (11:00)
[2018-08-17] MEDS ORDERED: D5W 1,000 ML IV SCH (11:00)
--- NOTE | 2018-08-17 12:51 | HPEPDOC ---
[facility] Medical History & Physical Date of Admission Aug 17, 2018 Date of Service: Aug 17, 2018 History and Physical CHIEF COMPLAINT: Lightheadedness HISTORY OF PRESENTING ILLNESS: 57-year-old male with a longstanding history of alcohol withdrawal seizures, chronic ETOH liver disease, thrombocytopenia,hypertension presented to [facility] with 4days of lightheadedness when he gets up from bed or sitting position. He was seen in the ER 2days ago, and was found to be orthostatic given 3 liters ns and sent home. He returns with recurrent dizziness without palpitations, chest pain, sob, lightheadedness, nausea, vomiting, or abdominal pain. He denies brbpr, melena, black tarry stools, hematemesis, coffee ground emesis, fever chills headache changes in vision changes in appetite weight gain weight loss upper or lowerextremity weakness, numbness, anxiety depression. In the ER, he was found to be orthostatic with a 2gram decrease in hgb hct and heme positive. Hospitalist was called to admit for symptomatic anemia from probable blood loss due to GI bleed, most likely upper from history of ETOH liver disease with chronic thrombocytopenia, and coagulopathy. Last ETOH beverage was a "few days ago, " but admits to naproxen use for chronic pain. REVIEW OF SYSTEMS: 14-point review of systems obtained and is negative except as per history of the present illness. PAST MEDICAL HISTORY: Hypertension, alcohol-related seizure disorder, chronic thrombocytopenia due to alcoholic liver disease PAST SURGICAL HISTORY: Carpal tunnel repair. FAMILY HISTORY: unknown. Noncontributory. SOCIAL HISTORY: heavy alcoholic, last drink was Denies use of any tobacco or illicit drugs. HOME MEDICATIONS: - lisinopril. REVIEW OF SYSTEMS: per HPI. 12points systems review otherwise negative. PHYSICAL EXAMINATION: VITALS: PLS SEE BELOW GEN:The patient is awake, awake, alert, oriented to person, place and time. Speech, language, comprehension and repetition are intact; HEENT: no jaundice or icterus moist mucus membrantes no cervical LAD or thyromegaly LUNGS: clear b/l AEBE no wheezing or rales HEART: sinus tachycardia no murmurs rubs or gallops ABD: (+) BS soft NT ND no hepatosplenomegaly no rebound or guarding no caput medusa EXT: no cyanosis, clubbing, or edema NEURO:Pupils are round, reactive. Extraocular movements are without any significant ataxia. Hearing subjectively equal. Tongue appears to be midline. There is no pronator drift. Strength is 5/5 including bilateral deltoids, biceps and triceps, handgrip, iliopsoas. Tremors are present in bilateral upper extremities. Deep tendon reflexes are reduced distally and present in the upper extremities at 2s. Sensory is intact to light touch in all four extremities. Gait deferred. LABORATORY DATA, IMAGING STUDIES, MICROBIOLOGY: PLS SEE BELOW ASSESSMENT/PLAN: 57-year-old male with a longstanding history of alcohol withdrawal seizures, chronic ETOH liver disease, thrombocytopenia,hypertension presented to [facility] with 4days of lightheadedness when he gets up from bed or sitting position. He was seen in the ER 2days ago, and was found to be orthostatic given 3 liters ns and sent home. He returns with recurrent dizziness without palpitations, chest pain, sob, lightheadedness, nausea, vomiting, or abdominal pain. He denies brbpr, melena, black tarry stools, hematemesis, coffee ground emesis, fever chills headache changes in vision changes in appetite weight gain weight loss upper or lowerextremity weakness, numbness, anxiety depression. In the ER, he was found to be orthostatic with a 2gram decrease in hgb hct and heme positive. Hospitalist was called to admit for symptomatic anemia from probable blood loss due to GI bleed, most likely upper from history of ETOH liver disease with chronic thrombocytopenia, and coagulopathy. Last ETOH beverage was a "few days ago," but admits to NAPROXEN use for chrnoic pain. Symptomatic Anemia -in the setting of Advanced ETOH liver disease, thrombocytopenia, NSAID use, and ETOH liver induced coagulopathy -Heme positive stool -2gram decrease in Hemoglobin -type and cross -cycle h&h q6hrs -transfuse if hgb<8, active GI bleed, or recurrent orthostasis or cardiac ischemic symptoms -DDX: portal gastropathy, NSAID-induced gastritis, PUD, AVM -npo -ivfluids -iv octreotide -iv protonix gtt -GI Dr. Lazaro consulted for EGD Acute Blood Loss Anemia -in the setting of Advanced ETOH liver disease, thrombocytopenia, NSAID use, and ETOH liver induced coagulopathy -Heme positive stool -2gram decrease in Hemoglobin -type and cross -cycle h&h q6hrs -transfuse if hgb<8, active GI bleed, or recurrent orthostasis or cardiac ischemic symptoms -DDX: portal gastropathy, NSAID-induced gastritis, PUD, AVM -npo -ivfluids -iv octreotide -iv protonix gtt -GI Dr. Lazaro consulted for EGD Probable Acute UGI Bleed -in the setting of Advanced ETOH liver disease, thrombocytopenia, NSAID use, and ETOH liver induced coagulopathy -Heme positive stool -2gram decrease in Hemoglobin -type and cross -cycle h&h q6hrs -transfuse if hgb<8, active GI bleed, or recurrent orthostasis or cardiac ischemic symptoms -DDX: portal gastropathy, NSAID-induced gastritis, PUD, AVM -npo -ivfluids -iv octreotide -iv protonix gtt -GI Dr. Lazaro consulted for EGD ETOH Liver disease -NPO -change to IV thiamine, folate, MVI with banana bag during resuscitation -ETOH cessation counselling provided -needs ETOH outpt rehab Chronic thrombocytopenia -no acute indication for transfusion -due to ETOH liver disease HTN -resume home meds after EGD ETOH Abuse -npo -change to IV thiamine, folate, MVI with banana bag during resuscitation -ETOH cessation counselling provided -needs ETOH outpt rehab Diet: NPO DVT prophylaxis: compression stockings Vital Signs Vital Signs Date Time Temp Pulse Resp B/P (MAP) Pulse Ox O2 Delivery O2 Flow Rate FiO2 08/17/18 10:16 97.7 88 18 98 Room Air 08/17/18 10:15 131/84 (100) Laboratory Data Labs 24H Laboratory Tests 2 08/17/18 07:39: Immature Granulocyte % (Auto) 1.0, White Blood Count 2.0L, Red Blood Count 3.46L, Hemoglobin 11.2#L, Hematocrit 32.9L, Mean Corpuscular Volume 95.1, Mean Corpuscular Hemoglobin 32.4, Mean Corpuscular Hemoglobin Concent 34.0, Red Cell Distribution Width 13.4, Platelet Count 51L, Neutrophils (%) (Auto) 50.0, Lymphocytes (%) (Auto) 39.6, Monocytes (%) (Auto) 6.9H, Eosinophils (%) (Auto) 1.5, Basophils (%) (Auto) 1.0, Neutrophils # (Auto) 1.0L, Lymphocytes # (Auto) 0.8L, Monocytes # (Auto) 0.1, Eosinophils # (Auto) 0.0, Basophils # (Auto) 0.0, Nucleated Red Blood Cells % (auto) 0.0, Immature Platelet Fraction 7.2, Anion Gap 10, Glomerular Filtration Rate > 60.0, Blood Urea Nitrogen 13, Creatinine 0.60L, Sodium Level 138, Potassium Level 3.1L, Chloride Level 98, Carbon Dioxide Level 30, Calcium Level 8.3L, Total Creatine Kinase 48, Magnesium Level 1.6L, Creatine Kinase MB < 1.0, Creatine Kinase MB Relative Index 2.08, Troponin I < 0.02, Thyroid Stimulating Hormone (TSH) 0.882, Free Thyroxine 1.05 CBC/BMP Laboratory Tests 08/17/18 07:39 Red Blood Count 3.46 L, Mean Corpuscular Volume 95.1, Mean Corpuscular Hemoglobin 32.4, Mean Corpuscular Hemoglobin Concent 34.0, Red Cell Distribution Width 13.4, Neutrophils (%) (Auto) 50.0, Lymphocytes (%) (Auto) 39.6, Monocytes (%) (Auto) 6.9 H, Eosinophils (%) (Auto) 1.5, Basophils (%) (Auto) 1.0, Neutrophils # (Auto) 1.0 L, Lymphocytes # (Auto) 0.8 L, Monocytes # (Auto) 0.1, Eosinophils # (Auto) 0.0, Basophils # (Auto) 0.0, Calcium Level 8.3 L, Total Creatine Kinase 48 Home Medications Scheduled Amlodipine Besylate (Amlodipine Besylate) 5 Mg Tablet, 5 MG PO DAILY Folic Acid (Folic Acid) 1 Mg Tablet, 1 MG PO DAILY Lactulose (Lactulose) 10 Gm/15 Ml Solution, 15 ML PO DAILY Multivitamins (Thera M Plus Tablet) 1 Each Tablet, 1 TAB PO DAILY Nicotine (Nicotine Patch) 21 Mg Patch.td24, 1 PATCH TOP DAILY Propranolol HCl (Propranolol HCl) 20 Mg Tablet, 40 MG PO BID Thiamine HCl (Thiamine HCl) 100 Mg Tablet, 100 MG PO DAILY Scheduled PRN Acetaminophen (Acetaminophen) 500 Mg Tablet, 500 MG PO Q4H PRN for HEADACHE Miscellaneous Medications [Med Rec Comment] MEDS E-SCRIBED TO PHARMACY ON 07/29/18 WERE NEVER RECEIVED, PT HAS NOT STARTED THEM Allergies Coded Allergies: ceftriaxone (Verified Adverse Reaction, Intermediate, FEELS LIKE "PASSING OUT", 08/17/18) A-FIB/CHADSVASC A-FIB History Current/History of A-Fib/PAF?: No Current PO Anticoag Therapy: FABIAN Estevez MD Aug 17, 2018 10:34
--- NOTE | 2018-08-17 12:56 | DS.PDOC ---
Discharge Summary General Date of Admission Aug 17, 2018 at 09:49 Date of Discharge August 17, 2018 signed out AGAINST MEDICAL ADVICE Discharge Summary DISCHARGE DIAGNOSES: ACUTE SYMPTOMATIC ANEMIA ACUTE GI BLEED ACUTE BLOOD LOSS ANEMIA WITH HEME POSITIVE STOOL ETOH ABUSE ETOH LIVER DISEASE ETOH LIVER INDUCED THROMBOCYTOPENIA HYPERTENSION DISCHARGE MEDICATIONS: PLS SEE BELOW DISCHARGE INSTRUCTIONS: PT SIGNED OUT AGAINST MEDICAL ADVICE. ALEXANDER Andrew YOUR DOCTOR THIS WEEK. RETURN TO THE ER IF SYMPTOMS RETURN HISTORY OF PRESENTING ILLNESS: 57-year-old male with a longstanding history of alcohol withdrawal seizures, chronic ETOH liver disease, thrombocytopenia,hypertension presented to [facility] with 4days of lightheadedness when he gets up from bed or sitting position. He was seen in the ER 2days ago, and was found to be orthostatic given 3 liters ns and sent home. He returns with recurrent dizziness without palpitations, chest pain, sob, lightheadedness, nausea, vomiting, or abdominal pain. He denies brbpr, melena, black tarry stools, hematemesis, coffee ground emesis, fever chills headache changes in vision changes in appetite weight gain weight loss upper or lowerextremity weakness, numbness, anxiety depression. In the ER, he was found to be orthostatic with a 2gram decrease in hgb hct and heme positive. Hospitalist was called to admit for symptomatic anemia from probable blood loss due to GI bleed, most likely upper from history of ETOH liver disease with chronic thrombocytopenia, and coagulopathy. Last ETOH beverage was a "few days ago," but admits to NAPROXEN use for chrnoic pain. HOSPITAL COURSE: Symptomatic Anemia -in the setting of Advanced ETOH liver disease, thrombocytopenia, NSAID use, and ETOH liver induced coagulopathy -Heme positive stool -2gram decrease in Hemoglobin -type and cross -cycle h&h q6hrs -transfuse if hgb<8, active GI bleed, or recurrent orthostasis or cardiac ischemic symptoms -DDX: portal gastropathy, NSAID-induced gastritis, PUD, AVM -npo -ivfluids -iv octreotide -iv protonix gtt -GI Dr. Lazaro consulted for EGD Acute Blood Loss Anemia -in the setting of Advanced ETOH liver disease, thrombocytopenia, NSAID use, and ETOH liver induced coagulopathy -Heme positive stool -2gram decrease in Hemoglobin -type and cross -cycle h&h q6hrs -transfuse if hgb<8, active GI bleed, or recurrent orthostasis or cardiac ischemic symptoms -DDX: portal gastropathy, NSAID-induced gastritis, PUD, AVM -npo -ivfluids -iv octreotide -iv protonix gtt -GI Dr. Lazaro consulted for EGD Probable Acute UGI Bleed -in the setting of Advanced ETOH liver disease, thrombocytopenia, NSAID use, and ETOH liver induced coagulopathy -Heme positive stool -2gram decrease in Hemoglobin -type and cross -cycle h&h q6hrs -transfuse if hgb<8, active GI bleed, or recurrent orthostasis or cardiac ischemic symptoms -DDX: portal gastropathy, NSAID-induced gastritis, PUD, AVM -npo -ivfluids -iv octreotide -iv protonix gtt -GI Dr. Lazaro consulted for EGD ETOH Liver disease -NPO -change to IV thiamine, folate, MVI with banana bag during resuscitation -ETOH cessation counselling provided -needs ETOH outpt rehab Chronic thrombocytopenia -no acute indication for transfusion -due to ETOH liver disease HTN -resume home meds after EGD ETOH Abuse -npo -change to IV thiamine, folate, MVI with banana bag during resuscitation -ETOH cessation counselling provided -needs ETOH outpt rehab Diet: NPO DVT prophylaxis: compression stockings DISPO: Pt refused to remain in the hospital due to "I want to eat. I want to go home now." Despite discussion about risk of recurrent GI bleed, syncope from GI bleed, Arrhythmia from GI bleed, alcohol withdrawal, withdrawal seizure, blood loss. HE SIGNED OUT AGAINST MEDICAL ADVICE. GI, DR. GRISSOM, was informed of pt signing out AMA. DISCHARGE PHYSICAL EXAMINATION: VITALS: PLS SEE BELOW GEN:The patient is awake, awake, alert, oriented to person, place and time. Speech, language, comprehension and repetition are intact; HEENT: no jaundice or icterus moist mucus membrantes no cervical LAD or thyromegaly LUNGS: clear b/l AEBE no wheezing or rales HEART: sinus tachycardia no murmurs rubs or gallops ABD: (+) BS soft NT ND no hepatosplenomegaly no rebound or guarding no caput medusa EXT: no cyanosis, clubbing, or edema NEURO:Pupils are round, reactive. Extraocular movements are without any significant ataxia. Hearing subjectively equal. Tongue appears to be midline. There is no pronator drift. Strength is 5/5 including bilateral deltoids, biceps and triceps, handgrip, iliopsoas. Tremors are present in bilateral upper extremities. Deep tendon reflexes are reduced distally and present in the upper extremities at 2s. Sensory is intact to light touch in all four extremities. Gait deferred. LABORATORY DATA, IMAGING STUDIES, MICROBIOLOGY: PLS SEE BELOW TIME SPENT ON HOSPITAL DISCHARGE: 32 minutes. Vital Signs/I&Os Vital Signs Date Time Temp Pulse Resp B/P (MAP) Pulse Ox O2 Delivery O2 Flow Rate FiO2 08/17/18 11:01 106 08/17/18 11:00 154/90 (111) 08/17/18 10:16 97.7 18 98 Room Air Laboratory Data Labs 24H Laboratory Tests 2 08/17/18 07:39: Immature Granulocyte % (Auto) 1.0, White Blood Count 2.0L, Red Blood Count 3.46L, Hemoglobin 11.2#L, Hematocrit 32.9L, Mean Corpuscular Volume 95.1, Mean Corpuscular Hemoglobin 32.4, Mean Corpuscular Hemoglobin Concent 34.0, Red Cell Distribution Width 13.4, Platelet Count 51L, Neutrophils (%) (Auto) 50.0, Lymphocytes (%) (Auto) 39.6, Monocytes (%) (Auto) 6.9H, Eosinophils (%) (Auto) 1.5, Basophils (%) (Auto) 1.0, Neutrophils # (Auto) 1.0L, Lymphocytes # (Auto) 0.8L, Monocytes # (Auto) 0.1, Eosinophils # (Auto) 0.0, Basophils # (Auto) 0.0, Nucleated Red Blood Cells % (auto) 0.0, Immature Platelet Fraction 7.2, Anion Gap 10, Glomerular Filtration Rate > 60.0, Blood Urea Nitrogen 13, Creatinine 0.60L, Sodium Level 138, Potassium Level 3.1L, Chloride Level 98, Carbon Dioxide Level 30, Calcium Level 8.3L, Total Creatine Kinase 48, Magnesium Level 1.6L, Creatine Kinase MB < 1.0, Creatine Kinase MB Relative Index 2.08, Troponin I < 0.02, Thyroid Stimulating Hormone (TSH) 0.882, Free Thyroxine 1.05 CBC/BMP Laboratory Tests 08/17/18 07:39 Red Blood Count 3.46 L, Mean Corpuscular Volume 95.1, Mean Corpuscular Hemoglobin 32.4, Mean Corpuscular Hemoglobin Concent 34.0, Red Cell Distribution Width 13.4, Neutrophils (%) (Auto) 50.0, Lymphocytes (%) (Auto) 39.6, Monocytes (%) (Auto) 6.9 H, Eosinophils (%) (Auto) 1.5, Basophils (%) (Auto) 1.0, Neutrophils # (Auto) 1.0 L, Lymphocytes # (Auto) 0.8 L, Monocytes # (Auto) 0.1, Eosinophils # (Auto) 0.0, Basophils # (Auto) 0.0, Calcium Level 8.3 L, Total Creatine Kinase 48 Discharge Medications Scheduled Amlodipine Besylate (Amlodipine Besylate) 5 Mg Tablet, 5 MG PO DAILY, (Reported) Folic Acid (Folic Acid) 1 Mg Tablet, 1 MG PO DAILY, (Reported) Lactulose (Lactulose) 10 Gm/15 Ml Solution, 15 ML PO DAILY, (Reported) Multivitamins (Thera M Plus Tablet) 1 Each Tablet, 1 TAB PO DAILY, (Reported) Nicotine (Nicotine Patch) 21 Mg Patch.td24, 1 PATCH TOP DAILY, (Reported) Propranolol HCl (Propranolol HCl) 20 Mg Tablet, 40 MG PO BID, (Reported) Thiamine HCl (Thiamine HCl) 100 Mg Tablet, 100 MG PO DAILY, (Reported) Scheduled PRN Acetaminophen (Acetaminophen) 500 Mg Tablet, 500 MG PO Q4H PRN for HEADACHE, (Reported) Miscellaneous Medications [Med Rec Comment] , (Reported) MEDS E-SCRIBED TO PHARMACY ON 07/29/18 WERE NEVER RECEIVED, PT HAS NOT STARTED THEM Allergies Coded Allergies: ceftriaxone (Verified Adverse Reaction, Intermediate, FEELS LIKE "PASSING OUT", 08/17/18) FABIAN LEA MD Aug 17, 2018 12:56
[2018-08-17 14:06] LABS: FERRITIN 2157 NG/ML (26-388); IRON (FE) 92 UG/DL (65-175); PERCENT SATURATION 46.5 % (19.7-50.0); TOTAL IRON BINDING CAPACITY 198 UG/DL (250-450)
[2018-08-17] MEDS ORDERED: METAL LOCK LOOP XX ONE (22:03)
[2018-08-17] MEDS ORDERED: LIDOCAINE 2% INJ 100 MG/5 ML SDV (FOR ANES.) As Ordered ONE (22:44)
[2018-08-17] MEDS ORDERED: PROPOFOL 200 MG/20 ML VIAL As Ordered ONE (22:44)
[2018-08-17] MEDS ORDERED: MIDAZOLAM INJ 2 MG/2 ML VIAL (J2250) As Ordered ONE (22:49)
[2018-08-17] MEDS ORDERED: ROCURONIUM BROMIDE 50 MG/5 ML VIAL As Ordered ONE (22:49)
[2018-08-17] MEDS ORDERED: fentaNYL 100 MCG/2 ML INJECTION (J3010) As Ordered ONE (22:50)
[2018-08-18] MEDS ORDERED: PRIL20TA2 PO (07:06)
[2018-08-18] MEDS ORDERED: CARA1TAB6 PO (07:06)
== END 2018-08-17 11:50 | disposition left against medical advice (07) | DRG 811 ==
LOC: M ED 04:24 → M ED INP 09:49
PROVIDERS: ADMIT General Practice; ATTEND General Practice
DX: D62 Acute posthemorrhagic anemia (principal); K29.61 Other gastritis with bleeding; I10 Essential (primary) hypertension; D69.6 Thrombocytopenia, unspecified; K70.30 Alcoholic cirrhosis of liver without ascites; K31.89 Other diseases of stomach and duodenum; K27.9 Peptic ulcer, site unspecified, unspecified as acute or chronic, without hemorrhage or perforation; Z79.899 Other long term (current) drug therapy; Z88.8 Allergy status to other drugs, medicaments and biological substances

== ENCOUNTER 2018-08-17 15:37 | Inpatient (IN) | payer OTHER ==
[~2018-08-17] VITALS: Ht 185.4 cm; Wt 83.4 kg
[~2018-08-17 15:37] MED LIST changes: +ACET500T15 PO; +ALEV220T22 PO; +LACT10SO29 PO; +LISI-1046 PO; +MED REC COMMENT; +NICO21PAT TOP; +THIA100T7 PO
[2018-08-17 16:48] LABS: EOS % 2.1 % (0.0-3.0); HEMATOCRIT 30.9 % (42.0-52.0); HEMOGLOBIN 10.5 g/dl (13.5-17.5); LYMPH # 0.7 10^3/uL (1.5-4.5); LYMPH % 38.2 % (24.0-44.0); MEAN CORPUSCULAR HEMOGLOBIN 33.2 pg (27.0-33.0); MEAN CORPUSCULAR VOLUME 97.8 fl (80.0-96.0); MONO # 0.1 10^3/uL (0.0-0.8); MONO % 6.8 % (0.0-5.0); NEUTROPHILS % 51.4 % (36.0-66.0); RED BLOOD COUNT 3.16 10^6/uL (4.30-6.10)
[2018-08-17 16:52] LABS: PLATELET COUNT, AUTOMATED 51 10^3/uL (150-450); WHITE BLOOD COUNT 1.9 10^3/uL (4.0-10.0)
--- NOTE | 2018-08-17 17:03 | REP ---
PORTABLE CHEST: AP portable view of the chest is performed. There is mild bibasilar fibroatelectatic change. No acute infiltrate is seen. The heart is normal in size. Mediastinal silhouette is unremarkable and unchanged. IMPRESSION: No acute infiltrate. Electronically Signed by Albin Rosa MD 08/20/2018 10:02 A
[2018-08-17 17:18] LABS: INR 1.07; PARTIAL THROMBOPLASTIN TIME 26.7 SECONDS (25.0-38.4); PROTHROMBIN TIME 13.6 SECONDS (11.8-14.0)
[2018-08-17 17:19] LABS: ALBUMIN 3.4 GM/DL (3.2-5.2); ALT/SGPT 100 U/L (12-78); BILIRUBIN,DIRECT 0.7 MG/DL (0.0-0.2); BILIRUBIN,TOTAL 1.2 MG/DL (0.2-1.0); BLOOD UREA NITROGEN 10 MG/DL (7-18); CARBON DIOXIDE LEVEL 30 MEQ/L (21-32); CHLORIDE LEVEL 99 MEQ/L (98-107); CK-MB VALUE MASS < 1.0 NG/ML (<3.6); CPK CREATINE PHOSPHOKINASE 51 U/L (39-308); CREATININE FOR GFR 0.59 MG/DL (0.70-1.30); ETHYL ALCOHOL (ETHANOL) 0.138 % (0.000-0.010); FREE T4 0.99 NG/DL (0.76-1.46); GLOMERULAR FILTRATION RATE > 60.0 (>56); GLUCOSE, FASTING 85 MG/DL (70-100); MB/CK RELATIVE INDEX 1.96 (< OR =4); POTASSIUM SERUM 3.1 MEQ/L (3.5-5.1); SODIUM LEVEL 138 MEQ/L (136-145); TOTAL PROTEIN 6.5 GM/DL (6.4-8.2); TROPONIN I < 0.02 NG/ML (< 0.10)
[2018-08-17] MEDS ORDERED: POTASSIUM CHLORIDE 10 MEQ SR TABLET PO ONE (17:30)
[2018-08-17] MEDS ORDERED: LORazepam 2 MG/ML VIAL (J2060) IV PRN (17:45)
[2018-08-17] MEDS ORDERED: PANTOPRAZOLE SODIUM 40 MG in D5W 50 ML IV SCH (17:45)
[2018-08-17] MEDS ORDERED: THIAMINE HCL 200 MG/2 ML VIAL (J3411) IV ONE (17:45)
[2018-08-17] MEDS ORDERED: FOLIC ACID 1 MG in NS 50 ML IV ONE (17:45)
[2018-08-17] MEDS ORDERED: OCTREOTIDE ACETATE 1,200 MCG in NS 238.8 ML IV SCH (18:00)
[2018-08-17] MEDS ORDERED: OXAZEPAM 10 MG CAP PO PRN (18:00)
--- NOTE | 2018-08-17 18:00 | HPEPDOC ---
[facility] Medical History & Physical Date of Admission Aug 17, 2018 Date of Service: Aug 17, 2018 History and Physical CHIEF COMPLAINT: Lightheadedness & Dizziness, returned to ER after signing out AMA earlier today. HISTORY OF PRESENTING ILLNESS: 57-year-old male with a longstanding history of alcohol withdrawal seizures, chronic ETOH liver disease, thrombocytopenia,hypertension presented to [facility] with 4days of lightheadedness when he gets up from bed or sitting position. He was seen in the ER 2days ago, and was found to be orthostatic given 3 liters ns and sent home. He returns with recurrent dizziness without palpitations, chest pain, sob, lightheadedness, nausea, vomiting, or abdominal pain. He denies brbpr, melena, black tarry stools, hematemesis, coffee ground emesis, fever chills headache changes in vision changes in appetite weight gain weight loss upper or lowerextremity weakness, numbness, anxiety depression. In the ER, he was found to be orthostatic with a 2gram decrease in hgb hct and heme positive. Hospitalist was called to admit for symptomatic anemia from probable blood loss due to GI bleed, most likely upper from history of ETOH liver disease with chronic thrombocytopenia, and coagulopathy. Last ETOH beverage was a "few days ago, " but admits to naproxen use for chronic pain. PT refused EGD, and signed out AGAINST MEDICAL ADVICE earlier today. He went home and drank alcohol, and returned to the ER inebriated. Due to recurrent orthostasis with c/o dizziness, pt agrees to be re-admitted. Pt gives permission for colonoscopy but not EGD, and demands general anesthesia. REVIEW OF SYSTEMS: 14-point review of systems obtained and is negative except as per history of the present illness. PAST MEDICAL HISTORY: Hypertension, alcohol-related seizure disorder, chronic thrombocytopenia due to alcoholic liver disease PAST SURGICAL HISTORY: Carpal tunnel repair. FAMILY HISTORY: unknown. Noncontributory. SOCIAL HISTORY: heavy alcoholic, last drink was Denies use of any tobacco or illicit drugs. HOME MEDICATIONS: - lisinopril. REVIEW OF SYSTEMS: per HPI. 12points systems review otherwise negative. PHYSICAL EXAMINATION: VITALS: PLS SEE BELOW GEN:inebriated. smells of alcohol HEENT: no jaundice or icterus moist mucus membrantes no cervical LAD or thyromegaly LUNGS: clear b/l AEBE no wheezing or rales HEART: sinus tachycardia no murmurs rubs or gallops ABD: (+) BS soft NT ND no hepatosplenomegaly no rebound or guarding no caput medusa EXT: no cyanosis, clubbing, or edema NEURO:Pupils are round, reactive. Extraocular movements are without any significant ataxia. Hearing subjectively equal. Tongue appears to be midline. There is no pronator drift. Strength is 5/5 including bilateral deltoids, biceps and triceps, handgrip, iliopsoas. Tremors are present in bilateral upper extremities. Deep tendon reflexes are reduced distally and present in the upper extremities at 2s. Sensory is intact to light touch in all four extremities. Gait deferred. LABORATORY DATA, IMAGING STUDIES, MICROBIOLOGY: PLS SEE BELOW ASSESSMENT/PLAN: 57-year-old male with a longstanding history of alcohol withdrawal seizures, chronic ETOH liver disease, thrombocytopenia,hypertension presented to [facility] with 4days of lightheadedness when he gets up from bed or sitting position. He was seen in the ER 2days ago, and was found to be orthostatic given 3 liters ns and sent home. He returns with recurrent dizziness without palpitations, chest pain, sob, lightheadedness, nausea, vomiting, or abdominal pain. He denies brbpr, melena, black tarry stools, hematemesis, coffee ground emesis, fever chills headache changes in vision changes in appetite weight gain weight loss upper or lowerextremity weakness, numbness, anxiety depression. In the ER, he was found to be orthostatic with a 2gram decrease in hgb hct and heme positive. Hospitalist was called to admit for symptomatic anemia from probable blood loss due to GI bleed, most likely upper from history of ETOH liver disease with chronic thrombocytopenia, and coagulopathy. Last ETOH beverage was a "few days ago," but admits to NAPROXEN use for chrnoic pain. PT refused EGD, and signed out AGAINST MEDICAL ADVICE earlier today. He went home and drank alcohol, and returned to the ER inebriated. Due to recurrent orthostasis with c/o dizziness, pt agrees to be re-admitted. Pt gives permission for colonoscopy but not EGD, and demands general anesthesia. Symptomatic Anemia -with c/o lightheadedness and dizziness and found to be orthostatic. -in the setting of ETOH liver disease, NSAID use, -with Heme positive stool -2gram decrease in Hemoglobin -type and screen -cycle h&h q6hrs -transfuse if hgb<8, active GI bleed, or recurrent orthostasis or cardiac is chemic symptoms -DDX: portal gastropathy, NSAID-induced gastritis, PUD, varices -npo -ivfluids -iv octreotide -iv protonix gtt -GI Dr. Lazaro consulted for EGD Acute Blood Loss Anemia -in the setting of ETOH liver disease, NSAID use -Heme positive stool -2gram decrease in Hemoglobin -type and screen -cycle h&h q6hrs -transfuse if hgb<8, active GI bleed, or recurrent orthostasis or cardiac isc hemic symptoms -DDX: portal gastropathy, NSAID-induced gastritis, PUD, AVM -npo -ivfluids -iv octreotide -iv protonix gtt -GI Dr. Lazaro consulted for EGD Probable Acute UGI Bleed -in the setting of Advanced ETOH liver disease, pancytopenia NSAID use, -Heme positive stool -2gram decrease in Hemoglobin -type and cross -cycle h&h q6hrs -transfuse if hgb<8, active GI bleed, or recurrent orthostasis or cardiac ischemic symptoms -DDX: portal gastropathy, NSAID-induced gastritis, PUD, AVM -npo -ivfluids -iv octreotide -iv protonix gtt -GI Dr. Lazaro consulted for EGD Acute Alcohol Intoxication -PT refused EGD, and signed out AGAINST MEDICAL ADVICE earlier today. He went home and drank alcohol, and returned to the ER inebriated. Due to recurrent orthostasis with c/o dizziness, pt agrees to be re-admitted. Pt gives permission for colonoscopy but not EGD, and demands general anesthesia. -CIWA protocol -Ativan IV PRN for withdrawal symptoms -once able to take po meds, serax q6hrs. -MVI, folate, thiamine ETOH Liver disease -NPO -change to IV thiamine, folate, MVI with banana bag during resuscitation -ETOH cessation counselling provided -needs ETOH outpt rehab ETOH liver disease related pancytopenia -serial CBC -if overt intractable bleeding, consider transfusion HTN -resume home meds after EGD ETOH Abuse -signed out ama earlier today to drink alcohol, and returned due to recurrent orthostasis. -npo -change to IV thiamine, folate, MVI -ETOH cessation counselling provided -needs ETOH outpt rehab Diet: NPO DVT prophylaxis: compression stockings Vital Signs Vital Signs Date Time Temp Pulse Resp B/P (MAP) Pulse Ox O2 Delivery O2 Flow Rate FiO2 08/17/18 17:26 97.5 08/17/18 15:48 93 16 143/87 96 Room Air Laboratory Data Labs 24H Laboratory Tests 2 08/17/18 16:30: Immature Granulocyte % (Auto) 0.5, White Blood Count 1.9L, Red Blood Count 3.16L, Hemoglobin 10.5L, Hematocrit 30.9L, Mean Corpuscular Volume 97.8H, Mean Corpuscular Hemoglobin 33.2H, Mean Corpuscular Hemoglobin Concent 34.0, Red Cell Distribution Width 13.3, Platelet Count 51L, Neutrophils (%) (Auto) 51.4, Lymphocytes (%) (Auto) 38.2, Monocytes (%) (Auto) 6.8H, Eosinophils (%) (Auto) 2.1, Basophils (%) (Auto) 1.0, Neutrophils # (Auto) 1.0L, Lymphocytes # (Auto) 0.7L, Monocytes # (Auto) 0.1, Eosinophils # (Auto) 0.0, Basophils # (Auto) 0.0, Nucleated Red Blood Cells % (auto) 0.0, Prothrombin Time 13.6, Prothromb Time International Ratio 1.07, Activated Partial Thromboplast Time 26.7, Anion Gap 9, Glomerular Filtration Rate > 60.0, Calcium Level 8.0L, Aspartate Amino Transf (AST/SGOT) 192H, Alanine Aminotransferase (ALT/SGPT) 100H, Alkaline Phosphatase 131H, Total Bilirubin 1.2H, Direct Bilirubin 0.7H, Total Creatine Kinase 51, Creatine Kinase MB < 1.0, Creatine Kinase MB Relative Index 1.96, Troponin I < 0.02, Total Protein 6.5, Albumin 3.4, Albumin/Globulin Ratio 1.10, Thyroid Stimulating Hormone (TSH) 1.540, Free Thyroxine 0.99, Ethyl Alcohol Level 0.138H CBC/BMP Laboratory Tests 08/17/18 16:30 Red Blood Count 3.16 L, Mean Corpuscular Volume 97.8 H, Mean Corpuscular Hemoglobin 33.2 H, Mean Corpuscular Hemoglobin Concent 34.0, Red Cell Distribu tion Width 13.3, Neutrophils (%) (Auto) 51.4, Lymphocytes (%) (Auto) 38.2, Monocytes (%) (Auto) 6.8 H, Eosinophils (%) (Auto) 2.1, Basophils (%) (Auto) 1.0, Neutrophils # (Auto) 1.0 L, Lymphocytes # (Auto) 0.7 L, Monocytes # (Auto) 0.1, Eosinophils # (Auto) 0.0, Basophils # (Auto) 0.0 Home Medications Scheduled Amlodipine Besylate (Amlodipine Besylate) 5 Mg Tablet, 5 MG PO DAILY Folic Acid (Folic Acid) 1 Mg Tablet, 1 MG PO DAILY Lactulose (Lactulose) 10 Gm/15 Ml Solution, 15 ML PO DAILY Multivitamins (Thera M Plus Tablet) 1 Each Tablet, 1 TAB PO DAILY Nicotine (Nicotine Patch) 21 Mg Patch.td24, 1 PATCH TOP DAILY Propranolol HCl (Propranolol HCl) 20 Mg Tablet, 40 MG PO BID Thiamine HCl (Thiamine HCl) 100 Mg Tablet, 100 MG PO DAILY Scheduled PRN Acetaminophen (Acetaminophen) 500 Mg Tablet, 500 MG PO Q4H PRN for HEADACHE Miscellaneous Medications [Med Rec Comment] MEDS E-SCRIBED TO PHARMACY ON 07/29/18 WERE NEVER RECEIVED, PT HAS NOT STARTED THEM Allergies Coded Allergies: ceftriaxone (Verified Adverse Reaction, Intermediate, FEELS LIKE "PASSING OUT", 08/17/18) A-FIB/CHADSVASC A-FIB History Current/History of A-Fib/PAF?: No Current PO Anticoag Therapy: FABIAN Estevez MD Aug 17, 2018 18:00
[2018-08-17 20:10] VITALS: BP 126/90
--- NOTE | 2018-08-17 20:43 | CR ---
DATE OF CONSULTATION: 08/17/2018 REQUESTING PHYSICIAN: Hospitalist service. REASON FOR CONSULTATION: Lightheadedness and dizziness and a decrease in hemoglobin. HISTORY OF PRESENT ILLNESS This is a 57-year-old gentleman with a longstanding history of alcoholism who presents to the emergency room twice over the past week with dizziness upon getting up. I understand he was found to be orthostatic however, I have no record of his orthostatic vitals. He has been noted to have a decrease in hemoglobin of 1.5 grams over the past two evaluations in the emergency room. He denies any nausea, vomiting, no abdominal pain. No fevers or chills. No melena. No hematochezia. He does complain of lightheadedness when sitting up from a lying to a sitting position. He has a long standing history of alcohol and probable alcoholic liver disease, alcoholic hepatitis and chronic thrombocytopenia. PAST MEDICAL HISTORY: Subdural hematoma traumatic brain injury in 2018. Alcohol related withdrawal seizures. Thrombocytopenia. PAST SURGICAL HISTORY: None. FAMILY HISTORY: Unknown. SOCIAL HISTORY: He drinks one or two 6 packs and other liquor on a daily basis. HOME MEDICATIONS: Lisinopril, the patient is not taking. ALLERGIES TO MEDICATIONS: None. PHYSICAL EXAMINATION: Pulse 93, respiratory rate 16, blood pressure 143/87, pulse ox 96% on room air. General: He is intoxicated, slurring his speech, but is awake and alert and oriented times three. Head, eyes, ears, nose and throat: Grossly without abnormality. Neck is supple. No lymphadenopathy. Chest is clear bilaterally. Heart is regular rate and rhythm, S1, S2. Abdomen is soft, nontender. Positive bowel sounds. No masses or organomegaly. Extremities: Negative for edema. Rectal: Examination has been deferred as per patient request. IMPRESSION: 1. Symptomatic anemia. 2. Alcoholism, active 3. Pancytopenia. 4. Anemia of chronic disease/low TIBC. 5. Abnormal liver enzymes, most likely related to alcoholic hepatitis/possible cirrhosis. RECOMMENDATIONS 1. EGD to rule out variceal bleeding. 2. IV Protonix. 3. Start octreotide while awaiting endoscopic evaluation. MTDD
[2018-08-17] MEDS ORDERED: CETACAINE SPRAY 5GM As Ordered ONE (22:43)
[2018-08-17 23:00] VITALS: BP 126/90
[2018-08-17] MEDS ORDERED: LR 1,000 ML IV SCH (23:45)
[2018-08-17] MEDS ORDERED: METOCLOPRAMIDE INJ 10MG/2ML VIAL (J2765) IV PRN (23:45)
[2018-08-17] MEDS ORDERED: ONDANSETRON 4MG/2ML VIAL (J2405) IV PRN (23:45)
[2018-08-17] MEDS ORDERED: MIDAZOLAM INJ 2 MG/2 ML VIAL (J2250) IV PRN (23:45)
[2018-08-17] MEDS ORDERED: PROMETHAZINE INJ 25 MG/ML VIAL (J2550) IV PRN (23:45)
[2018-08-17] MEDS ORDERED: fentaNYL 100 MCG/2 ML INJECTION (J3010) IV PRN (23:45)
[2018-08-17] MEDS ORDERED: oxyCODONE 5MG TAB PO PRN (23:45)
[2018-08-17] MEDS ORDERED: ONDANSETRON 4MG/2ML VIAL (J2405) As Ordered ONE (23:47)
--- NOTE | 2018-08-17 23:49 | ROOR ---
Patient Name: Erwin Castillo Procedure Date: 08/17/2018 10:54 PM Date of : 1960 Age: 57 Gender: Male Note Status: Finalized Procedure: Upper GI endoscopy Indications: Acute anemia, pancytopenia, Alcoholic hepatitis/cirrhosis rule out esophageal varices Providers: Guanaco NUNO MD Referring MD: 2. Inpatient 2. Inpatient Requesting Provider: Medicines: Monitored Anesthesia Care Complications: No immediate complications. Procedure: Pre-Anesthesia Assessment: - The heart rate, respiratory rate, oxygen saturations, blood pressure, adequacy of pulmonary ventilation, and response to care were monitored throughout the procedure. The Endoscope was introduced through the mouth, and advanced to the third part of duodenum. The upper GI endoscopy was accomplished without difficulty. The patient tolerated the procedure well. Findings: The examined esophagus was normal. Scattered mild inflammation characterized by erythema was found in the gastric body. Biopsies were taken with a cold forceps for histology. The exam of the stomach was otherwise normal. The examined duodenum was normal. Impression: - Normal esophagus. No esophageal varices. - Mucosal changes suspicious for alcoholic gastritis. Biopsied. - Stomach is otherwise normal.-No gastric varices. - Normal examined duodenum. Recommendation: - Stop Octreotide, cont PPI PO. Regular diet - I suspect anemia is related to multifactorial causes including dilutional and marrow suppression (pancytopenia) from acohol abuse rather than GI blood loss. His "dizziness" is intermittent and may well be related to previous TBI. - Return patient to [facility] for ongoing care. - Observe patient's clinical course. - If Hb remains relatively stable, then can complete GI workup for heme positive stool/colonoscopy as outpatient. - I will sign off at this time, Please call me PRN. Guanaco Nuno MD Guanaco NUNO MD 08/17/2018 11:49:02 PM Electronically signed by Guanaco NUNO MD Number of Addenda: 0 Note Initiated On: 08/17/2018 10:54 PM Estimated Blood Loss: Estimated blood loss: none.
[2018-08-18] VITALS (8 sets, daily range): BP systolic 121–159; BP diastolic 80–108
--- NOTE | 2018-08-18 03:38 | ECGEPIP ---
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
[2018-08-18 06:29] LABS: INR 1.15; PROTHROMBIN TIME 14.4 SECONDS (11.8-14.0)
[2018-08-18 06:30] LABS: PARTIAL THROMBOPLASTIN TIME 27.2 SECONDS (25.0-38.4)
[2018-08-18] MEDS ORDERED: PRIL20TA2 PO (07:06)
[2018-08-18] MEDS ORDERED: CARA1TAB6 PO (07:06)
[2018-08-18] MEDS ORDERED: ONDANSETRON 4MG/2ML VIAL (J2405) IV ONE (07:15)
[2018-08-18] MEDS ORDERED: MECLIZINE 25 MG TABLET PO ONE (07:15)
[2018-08-18] MEDS ORDERED: MECLIZINE 25 MG TABLET PO PRN (07:15)
[2018-08-18] MEDS: PANTOPRAZOLE 40MG TAB (PROTONIX) PO SCH (07:46)
[2018-08-18] MEDS ORDERED: MULTIVITAMIN -ADULT INJECTION 10 ML, THIAMINE INJection 100 MG, FOLIC ACID 1 MG in NS 1... IV ONE (09:00)
[2018-08-18] MEDS: MIDODRINE 2.5 MG TAB PO SCH ×2 (11:48→16:00)
[2018-08-18 12:33] LABS: HEMATOCRIT 33.4 % (42.0-52.0); HEMOGLOBIN 11.3 g/dl (13.5-17.5)
[2018-08-18] MEDS: MECLIZINE 25 MG TABLET PO SCH ×3 (13:25→20:08)
--- NOTE | 2018-08-18 13:29 | REP ---
MRI brain without contrast: History: Ataxia, rule out cerebellar CVA. Comparison is made with recent head CT from August 15, 2018 and more remote head CT study from October 03, 2017. Findings: No bony calvarial lesion is seen. Craniocervical junction and upper cervical cord are normal in appearance. There is generalized volume loss as seen on CT. There are cystic changes in the right inferior frontal lobe, left inferior frontal lobe, and right temporal lobe region where the CT study from October 03, 2017 showed parenchymal hematomas. Encephalomalacia is seen in these locations as on CT. There is hemosiderin staining in the margins of the cystic changes. There is a small focus of old hemosiderin staining in the subcortical white matter of the left posterior frontal lobe as well. There is no evidence of acute intracranial hemorrhage. There is extensive small vessel atherosclerotic change in the periventricular and subcortical white matter of the supratentorial brain bilaterally. Diffusion weighted scans show no evidence of restricted diffusion to suggest acute ischemia. There is no evidence of cerebellar infarction. No extra-axial mass or fluid collection is appreciated. No midline shift seen. Impression: Moderate generalized volume loss. Evidence of old intracranial hemorrhage affecting the frontal lobes bilaterally and the right temporal lobe. There are extensive small vessel atherosclerotic changes. No acute intracranial lesion. Electronically Signed by Bienvenido Ling MD 08/18/2018 01:47 P
[2018-08-18] MEDS: MULTIVITAMIN -ADULT INJECTION 10 ML, THIAMINE INJection 100 MG, FOLIC ACID 1 MG in NS 1... IV SCH ×2 (15:26→16:38)
--- NOTE | 2018-08-18 18:33 | IPNPDOC ---
Date Seen The patient was seen on 08/18/18. Progress Note SUBJECTIVE: 08/17/18 EGD-Dr. Lazaro: alcoholic gastritis. recommendations for regular diet and PPI. pt still c/o dizziness, with persistent orthostasis, gait imbalance. s/p 2urbc transfusion no c/o hematemesis, brbpr, melena, or black tarry stools. n/o sob chest pressure or tightness. tolerating his diet without nausea, vomiting,or abdominal pain. no visual changes. 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 Rooney, who recommended no further workup, and most likely due to previous head traumas from ETOH intoxication and alcohol withdrawal seizures. OBJECTIVE: PHYSICAL EXAMINATION: VITALS: PLS SEE BELOW GEN:no respiratory distress. AAOx 3. no use of accessory respiratory muscles HEENT: no jaundice or icterus moist mucus membrantes no cervical LAD or thyromegaly LUNGS: clear b/l AEBE no wheezing or rales HEART: sinus tachycardia no murmurs rubs or gallops ABD: (+) BS soft NT ND no hepatosplenomegaly no rebound or guarding no caput medusa EXT: no cyanosis, clubbing, or edema NEURO:Pupils are round, reactive. Extraocular movements are without any significant ataxia. Hearing subjectively equal. Tongue appears to be midline. There is no pronator drift. Strength is 5/5 including bilateral deltoids, biceps and triceps, handgrip, iliopsoas. Tremors are present in bilateral upper extremities. Deep tendon reflexes are reduced distally and present in the upper extremities at 2s. Sensory is intact to light touch in all four extremities. Gait deferred. LABORATORY DATA, IMAGING STUDIES, MICROBIOLOGY: PLS SEE BELOW ASSESSMENT/PLAN: 57-year-old male with a longstanding history of alcohol withdrawal seizures, chronic ETOH liver disease, thrombocytopenia,hypertension presented to [facility] with 4days of lightheadedness when he gets up from bed or sitting position. He was seen in the ER 2days ago, and was found to be orthostatic given 3 liters ns and sent home. He returns with recurrent dizziness without palpitations, chest pain, sob, lightheadedness, nausea, vomiting, or abdominal pain. He denies brbpr, melena, black tarry stools, hematemesis, coffee ground emesis, fever chills headache changes in vision changes in appetite weight gain weight loss upper or lowerextremity weakness, numbness, anxiety depression. In the ER, he was found to be orthostatic with a 2gram decrease in hgb hct and heme positive. Hospitalist was called to admit for symptomatic anemia from probable blood loss due to GI bleed, most likely upper from history of ETOH liver disease with chronic thrombocytopenia, and coagulopathy. Last ETOH beverage was a "few days ago," but admits to NAPROXEN use for chrnoic pain. PT refused EGD, and signed out AGAINST MEDICAL ADVICE earlier today. He went home and drank alcohol, and returned to the ER inebriated. Due to recurrent orthostasis with c/o dizziness, pt agrees to be re-admitted. Pt gives permission for colonoscopy but not EGD, and demands general anesthesia. Symptomatic Anemia -with c/o lightheadedness and dizziness and found to be orthostatic. -in the setting of ETOH liver disease, NSAID use, -with Heme positive stool -2gram decrease in Hemoglobin -type and screen -cycle h&h q6hrs -transfuse if hgb<8, active GI bleed, or recurrent orthostasis or cardiac ischemic symptoms -DDX: portal gastropathy, NSAID-induced gastritis, PUD, varices -S/P npo -S/P ivfluids -S/P iv octreotide -S/P iv protonix gtt -GI Dr. Lazaro consulted for EGD 08/17/18: ALCOHOLIC GASTRITIS -on regular diet Acute Blood Loss Anemia -in the setting of ETOH liver disease, NSAID use -Heme positive stool -2gram decrease in Hemoglobin -type and screen -cycled h&h q6hrs -transfuse if hgb<8, active GI bleed, or recurrent orthostasis or cardiac ischemic symptoms -DDX: portal gastropathy, NSAID-induced gastritis, PUD, AVM -S/P npo -S/P ivfluids -S/P iv octreotide -S/P iv protonix gtt -GI Dr. Lazaro consulted for EGD 08/17/18: ALCOHOLIC GASTRITIS -on regular diet Acute UGI Bleed -in the setting of Advanced ETOH liver disease, pancytopenia NSAID use, -Heme positive stool -2gram decrease in Hemoglobin -type and cross -cycle h&h q6hrs -transfuse if hgb<8, active GI bleed, or recurrent orthostasis or cardiac ischemic symptoms -DDX: portal gastropathy, NSAID-induced gastritis, PUD, AVM -S/P npo -S/P ivfluids -S/P iv octreotide -S/P iv protonix gtt -GI Dr. Lazaro consulted for EGD 08/17/18: ALCOHOLIC GASTRITIS -on regular diet Acute Alcohol Intoxication -PT refused EGD, and signed out AGAINST MEDICAL ADVICE earlier today. He went home and drank alcohol, and returned to the ER inebriated. Due to recurrent orthostasis with c/o dizziness, pt agrees to be re-admitted. Pt gives permission for colonoscopy but not EGD, and demands general anesthesia. -CIRI protocol -Ativan IV PRN for withdrawal symptoms -once able to take po meds, serax q6hrs. -MVI, folate, thiamine ETOH Liver disease -s/p NPO on admission for EGD -change to IV thiamine, folate, MVI with banana bag during resuscitation -ETOH cessation counselling provided -needs ETOH outpt rehab ETOH liver disease related pancytopenia -serial CBC -if overt intractable bleeding, consider transfusion Orthostatic Hypotension -may have an element of autonomic dysfunction -c/o persistent dizziness and lightheadedness -trial of ivfluids -trial of midodrine Gait Imbalance -due to orthostatic hypotension -may have an element of autonomic dysfunction -c/o persistent dizziness and lightheadedness -trial of ivfluids -MRI brain: 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 no new pathology -reviewed case with Neurologist consultant in ergonomics and safety, Dr. Rooney, 08/18/18 who recommended no further workup, and most likely due to previous head traumas from ETOH intoxication and alcohol withdrawal seizures. Dizziness -due to orthostasis on ivfluids trial -trial of meclizine -r/o central causes such as cerebellar cva check basal ganglia circulation HTN -resume home meds after EGD ETOH Abuse -signed out ama earlier today to drink alcohol, and returned due to recurrent orthostasis. -s/p banana bag with IV thiamine, folate, MVI -ETOH cessation counselling provided -needs ETOH outpt rehab Diet: regular DVT prophylaxis: compression stockings VS, I&O, 24H, Fishbone Vital Signs/I&O Vital Signs Date Time Temp Pulse Resp B/P (MAP) Pulse Ox O2 Delivery O2 Flow Rate FiO2 08/18/18 11:43 91 159/102 (121) 101 138/91 (107) 121 128/88 (101) 08/18/18 06:00 98.9 18 98 08/17/18 19:50 Room Air I&O- Last 24 Hours up to 6 AM 08/18/18 06:00 Intake Total 540 ml Output Total 300 ml Balance 240 ml Laboratory Data 24H LABS Laboratory Tests 2 08/17/18 16:30: Immature Granulocyte % (Auto) 0.5, White Blood Count 1.9L, Red Blood Count 3.16L, Hemoglobin 10.5L, Hematocrit 30.9L, Mean Corpuscular Volume 97.8H, Mean Corpuscular Hemoglobin 33.2H, Mean Corpuscular Hemoglobin Concent 34.0, Red Cell Distribution Width 13.3, Platelet Count 51L, Neutrophils (%) (Auto) 51.4, Lymphocytes (%) (Auto) 38.2, Monocytes (%) (Auto) 6.8H, Eosinophils (%) (Auto) 2.1, Basophils (%) (Auto) 1.0, Neutrophils # (Auto) 1.0L, Lymphocytes # (Auto) 0.7L, Monocytes # (Auto) 0.1, Eosinophils # (Auto) 0.0, Basophils # (Auto) 0.0, Nucleated Red Blood Cells % (auto) 0.0, Prothrombin Time 13.6, Prothromb Time International Ratio 1.07, Activated Partial Thromboplast Time 26.7, Anion Gap 9, Glomerular Filtration Rate > 60.0, Calcium Level 8.0L, Aspartate Amino Transf (AST/SGOT) 192H, Alanine Aminotransferase (ALT/SGPT) 100H, Alkaline Phosphatase 131H, Total Bilirubin 1.2H, Direct Bilirubin 0.7H, Total Creatine Kinase 51, Creatine Kinase MB < 1.0, Creatine Kinase MB Relative Index 1.96, Troponin I < 0.02, Total Protein 6.5, Albumin 3.4, Albumin/Globulin Ratio 1.10, Thyroid Stimulating Hormone (TSH) 1.540, Free Thyroxine 0.99, Ethyl Alcohol Level 0.138H 08/17/18 21:11: Ethyl Alcohol Level 0.022H 08/18/18 05:59: Prothrombin Time 14.4H, Prothromb Time International Ratio 1.15, Activated Partial Thromboplast Time 27.2, Ammonia 25 CBC/BMP Laboratory Tests 08/17/18 16:30 Red Blood Count 3.16 L, Mean Corpuscular Volume 97.8 H, Mean Corpuscular Hemoglobin 33.2 H, Mean Corpuscular Hemoglobin Concent 34.0, Red Cell Distribution Width 13.3, Neutrophils (%) (Auto) 51.4, Lymphocytes (%) (Auto) 38.2, Monocytes (%) (Auto) 6.8 H, Eosinophils (%) (Auto) 2.1, Basophils (%) (Auto) 1.0, Neutrophils # (Auto) 1.0 L, Lymphocytes # (Auto) 0.7 L, Monocytes # (Auto) 0.1, Eosinophils # (Auto) 0.0, Basophils # (Auto) 0.0 08/18/18 12:11 FABIAN LEA MD Aug 18, 2018 12:40
[2018-08-18] MEDS ORDERED: FOLIC ACID IV ONE (20:00)
[2018-08-18] MEDS ORDERED: THIAMINE IV ONE (20:00)
[2018-08-18] MEDS ORDERED: NS IV ONE (20:00)
[2018-08-18 23:56] LABS: HEMATOCRIT 35.2 % (42.0-52.0); HEMOGLOBIN 11.7 g/dl (13.5-17.5)
[2018-08-19 00:07] VITALS: BP 122/80
[2018-08-19 04:00] VITALS: BP_SYST 140; BP_SYST 142; BP_SYST 148; BP_DIAS 82; BP_DIAS 86
[2018-08-19 05:55] LABS: HEMATOCRIT 31.5 % (42.0-52.0); HEMOGLOBIN 10.7 g/dl (13.5-17.5); MEAN CORPUSCULAR HEMOGLOBIN 33.6 pg (27.0-33.0); MEAN CORPUSCULAR VOLUME 99.1 fl (80.0-96.0); RED BLOOD COUNT 3.18 10^6/uL (4.30-6.10)
[2018-08-19 06:00] VITALS: BP 148/86
[2018-08-19 06:03] LABS: PLATELET COUNT, AUTOMATED 54 10^3/uL (150-450); WHITE BLOOD COUNT 1.6 10^3/uL (4.0-10.0)
[2018-08-19 06:07] LABS: INR 1.02; PROTHROMBIN TIME 13.1 SECONDS (11.8-14.0)
[2018-08-19 06:08] LABS: PARTIAL THROMBOPLASTIN TIME 27.9 SECONDS (25.0-38.4)
[2018-08-19 06:16] LABS: ALBUMIN 3.2 GM/DL (3.2-5.2); ALT/SGPT 71 U/L (12-78); BILIRUBIN,TOTAL 1.2 MG/DL (0.2-1.0); BLOOD UREA NITROGEN 5 MG/DL (7-18); CALCIUM LEVEL 8.1 MG/DL (8.5-10.1); CARBON DIOXIDE LEVEL 31 MEQ/L (21-32); CHLORIDE LEVEL 98 MEQ/L (98-107); CREATININE FOR GFR 0.64 MG/DL (0.70-1.30); GLOMERULAR FILTRATION RATE > 60.0 (>56); GLUCOSE, FASTING 119 MG/DL (70-100); SODIUM LEVEL 136 MEQ/L (136-145); TOTAL PROTEIN 6.6 GM/DL (6.4-8.2)
[2018-08-19] MEDS ORDERED: POTASSIUM CHLORIDE 10 MEQ SR TABLET PO ONE (06:45)
[2018-08-19] MEDS ORDERED: NS 1,000 ML IV ONE (06:45)
[2018-08-19 06:53] LABS: MAGNESIUM LEVEL 1.2 MG/DL (1.8-2.4)
[2018-08-19] MEDS ORDERED: MAG SULF 1GM/100ML (MAG RUN) 1 GM in IV 1 EA IV ONE (07:00)
[2018-08-19] MEDS ORDERED: FLUDROCORTISONE ACETATE 0.1 MG TAB PO ONE (08:00)
[2018-08-19] MEDS ORDERED: MIDODRINE 5 MG TAB PO SCH (08:00)
[2018-08-19] MEDS ORDERED: MIDO2.5T PO (08:44)
[2018-08-19] MEDS ORDERED: MECL-86 PO (08:50)
[2018-08-19] MEDS: MECLIZINE 25 MG TABLET PO SCH ×2 (08:50→12:36)
[2018-08-19] MEDS: PANTOPRAZOLE 40MG TAB (PROTONIX) PO SCH (09:35)
--- NOTE | 2018-08-19 09:47 | IPNPDOC ---
Date Seen The patient was seen on 08/19/18. Progress Note SUBJECTIVE: 08/17/18 EGD-Dr. Lazaro: alcoholic gastritis. recommendations for regular diet and PPI. pt still c/o dizziness,but orthostasis has resolved with midodrine and ivfluids. He still c/o gait imbalance while working with physical therapy today saying that he stubbed his toe. PT is to see him later this morning for re-evaluation. we are still waiting for PT clearance to discharge the patient. s/p 2urbc transfusion .no c/o hematemesis, brbpr, melena, or black tarry stools. n/o sob chest pressure or tightness. tolerating his diet without nausea, vomiting,or abdominal pain. no visual changes. 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 Rooney, who recommended no further workup, and most likely due to previous head traumas from ETOH intoxication and alcohol withdrawal seizures. OBJECTIVE: PHYSICAL EXAMINATION: VITALS: PLS SEE BELOW GEN:no respiratory distress. AAOx 3. no use of accessory respiratory muscles HEENT: no jaundice or icterus moist mucus membrantes no cervical LAD or thyromegaly LUNGS: clear b/l AEBE no wheezing or rales HEART: sinus tachycardia no murmurs rubs or gallops ABD: (+) BS soft NT ND no hepatosplenomegaly no rebound or guarding no caput medusa EXT: no cyanosis, clubbing, or edema NEURO:Pupils are round, reactive. Extraocular movements are without any significant ataxia. Hearing subjectively equal. Tongue appears to be midline. There is no pronator drift. Strength is 5/5 including bilateral deltoids, biceps and triceps, handgrip, iliopsoas. Tremors are present in bilateral upper extremities. Deep tendon reflexes are reduced distally and present in the upper extremities at 2s. Sensory is intact to light touch in all four extremities. Gait deferred. LABORATORY DATA, IMAGING STUDIES, MICROBIOLOGY: PLS SEE BELOW ASSESSMENT/PLAN: 57-year-old male with a longstanding history of alcohol withdrawal seizures, chronic ETOH liver disease, thrombocytopenia,hypertension presented to [facility] with 4days of lightheadedness when he gets up from bed or sitting position. He was seen in the ER 2days ago, and was found to be orthostatic given 3 liters ns and sent home. He returns with recurrent dizziness without palpitations, chest pain, sob, lightheadedness, nausea, vomiting, or abdominal pain. He denies brbpr, melena, black tarry stools, hematemesis, coffee ground emesis, fever chills headache changes in vision changes in appetite weight gain weight loss upper or lowerextremity weakness, numbness, anxiety depression. In the ER, he was found to be orthostatic with a 2gram decrease in hgb hct and heme positive. Hospitalist was called to admit for symptomatic anemia from probable blood loss due to GI bleed, most likely upper from history of ETOH liver disease with chronic thrombocytopenia, and coagulopathy. Last ETOH beverage was a "few days ago," but admits to NAPROXEN use for chrnoic pain. PT refused EGD, and signed out AGAINST MEDICAL ADVICE earlier today. He went home and drank alcohol, and returned to the ER inebriated. Due to recurrent orthostasis with c/o dizziness, pt agrees to be re-admitted. Pt gives permission for colonoscopy but not EGD, and demands general anesthesia. Symptomatic Anemia -with c/o lightheadedness and dizziness and found to be orthostatic. -in the setting of ETOH liver disease, NSAID use, -with Heme positive stool -2gram decrease in Hemoglobin -type and screen -cycle h&h q6hrs -transfuse if hgb<8, active GI bleed, or recurrent orthostasis or cardiac ischemic symptoms -DDX: portal gastropathy, NSAID-induced gastritis, PUD, varices -S/P npo -S/P ivfluids -S/P iv octreotide -S/P iv protonix gtt -GI Dr. Lazaro consulted for EGD 08/17/18: ALCOHOLIC GASTRITIS -on regular diet Acute Blood Loss Anemia -in the setting of ETOH liver disease, NSAID use -Heme positive stool -2gram decrease in Hemoglobin -type and screen -cycled h&h q6hrs -transfuse if hgb<8, active GI bleed, or recurrent orthostasis or cardiac ischemic symptoms -DDX: portal gastropathy, NSAID-induced gastritis, PUD, AVM -S/P npo -S/P ivfluids -S/P iv octreotide -S/P iv protonix gtt -GI Dr. Lazaro consulted for EGD 08/17/18: ALCOHOLIC GASTRITIS -on regular diet Acute UGI Bleed -in the setting of Advanced ETOH liver disease, pancytopenia NSAID use, -Heme positive stool -2gram decrease in Hemoglobin -type and cross -cycle h&h q6hrs -transfuse if hgb<8, active GI bleed, or recurrent orthostasis or cardiac ischemic symptoms -DDX: portal gastropathy, NSAID-induced gastritis, PUD, AVM -S/P npo -S/P ivfluids -S/P iv octreotide -S/P iv protonix gtt -GI Dr. Lazaro consulted for EGD 08/17/18: ALCOHOLIC GASTRITIS -on regular diet Acute Alcohol Intoxication -PT refused EGD, and signed out AGAINST MEDICAL ADVICE earlier today. He went home and drank alcohol, and returned to the ER inebriated. Due to recurrent orthostasis with c/o dizziness, pt agrees to be re-admitted. Pt gives permission for colonoscopy but not EGD, and demands general anesthesia. -CIWA protocol -Ativan IV PRN for withdrawal symptoms -once able to take po meds, serax q6hrs. -MVI, folate, thiamine ETOH Liver disease -s/p NPO on admission for EGD -change to IV thiamine, folate, MVI with banana bag during resuscitation -ETOH cessation counselling provided -needs ETOH outpt rehab ETOH liver disease related pancytopenia -serial CBC -if overt intractable bleeding, consider transfusion Orthostatic Hypotension,resolved -may have an element of autonomic dysfunction -c/o persistent dizziness and lightheadedness -trial of ivfluids -trial of midodrine Gait Imbalance -due to orthostatic hypotension -may have an element of autonomic dysfunction -c/o persistent dizziness and lightheadedness -trial of ivfluids -MRI brain: 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 no new pathology -reviewed case with Neurologist sanitation inspector, Dr. Rooney, 08/18/18 who recommended no further workup, and most likely due to previous head traumas from ETOH intoxication and alcohol withdrawal seizures. Dizziness -due to orthostasis on ivfluids trial -trial of meclizine -r/o central causes such as cerebellar cva check basal ganglia circulation HTN -resume home meds after EGD ETOH Abuse -signed out ama earlier today to drink alcohol, and returned due to recurrent orthostasis. -s/p banana bag with IV thiamine, folate, MVI -ETOH cessation counselling provided -needs ETOH outpt rehab Diet: regular DVT prophylaxis: compression stockings disposition: awaiting physical therapy clearance for discharge home. VS, I&O, 24H, Fishbone Vital Signs/I&O Vital Signs Date Time Temp Pulse Resp B/P (MAP) Pulse Ox O2 Delivery O2 Flow Rate FiO2 08/19/18 06:00 83 148/86 08/18/18 14:37 96.7 18 98 08/17/18 19:50 Room Air I&O- Last 24 Hours up to 6 AM 08/19/18 06:00 Intake Total 3060 ml Output Total 1200 ml Balance 1860 ml Laboratory Data 24H LABS Laboratory Tests 2 08/19/18 05:14: Nucleated Red Blood Cells % (auto) 0.0, Immature Platelet Fraction 6.7, Prothrombin Time 13.1, Prothromb Time International Ratio 1.02, Activated Partial Thromboplast Time 27.9, Anion Gap 7L, Glomerular Filtration Rate > 60.0, Blood Urea Nitrogen 5L, Creatinine 0.64L, Sodium Level 136, Potassium Level 3.0L, Chloride Level 98, Carbon Dioxide Level 31, Calcium Level 8.1L, Aspartate Amino Transf (AST/SGOT) 88H, Alanine Aminotransferase (ALT/SGPT) 71, Alkaline Phosphatase 118H, Total Bilirubin 1.2H, Total Protein 6.6, Albumin 3.2, Magnesium Level 1.2L, Albumin/Globulin Ratio 0.94L CBC/BMP Laboratory Tests 08/18/18 12:11 08/18/18 23:48 08/19/18 05:14 Red Blood Count 3.18 L, Mean Corpuscular Volume 99.1 H, Mean Corpuscular Hemoglobin 33.6 H, Mean Corpuscular Hemoglobin Concent 34.0, Red Cell Distribut ion Width 13.3, Calcium Level 8.1 L, Aspartate Amino Transf (AST/SGOT) 88 H, Alanine Aminotransferase (ALT/SGPT) 71, Alkaline Phosphatase 118 H, Total Bilirubin 1.2 H, Total Protein 6.6, Albumin 3.2 FABIAN LEA MD Aug 19, 2018 09:47
--- NOTE | 2018-08-19 09:55 | DS.PDOC ---
Discharge Summary General Date of Admission Aug 18, 2018 at 11:56 Date of Discharge August 19, 2018 Discharge Summary DISCHARGE DIAGNOSES: Medical Noncompliance-signed out AMA to drink alcohol and returned later for re- admission Symptomatic Anemia acute Alcoholic gastritis Acute Blood Loss Anemia Acute UGI Bleed ETOH Liver disease ETOH liver disease related pancytopenia Orthostatic Hypotension Gait Imbalance Dizziness HTN ETOH Abuse history of alcohol withdrawal seizures hypokalemia old intracranial hemorrhage affecting the frontal lobes bilaterally and the right temporal lobe. DISCHARGE MEDICATIONS: PLS SEE BELOW CONSULTANTS: THERMAL CUTTER HAND DR NUNO NEUROLOGIST ENVIRONMENTAL AID(TELEPHONE CONSULTATION)- PROCEDURES: EGD - ALCOHOLIC GASTRITIS DISCHARGE INSTRUCTIONS: AVOID ALCOHOL HISTORY OF PRESENTING ILLNESS: 57-year-old male with a longstanding history of alcohol withdrawal seizures, chronic ETOH liver disease, thrombocytopenia,hypertension presented to [facility] with 4days of lightheadedness when he gets up from bed or sitting position. He was seen in the ER 2days ago, and was found to be orthostatic given 3 liters ns and sent home. He returns with recurrent dizziness without palpitations, chest pain, sob, lightheadedness, nausea, vomiting, or abdominal pain. He denies brbpr, melena, black tarry stools, hematemesis, coffee ground emesis, fever chills headache changes in vision changes in appetite weight gain weight loss upper or lowerextremity weakness, numbness, anxiety depression. In the ER, he was found to be orthostatic with a 2gram decrease in hgb hct and heme positive. Hospitalist was called to admit for symptomatic anemia from probable blood loss due to GI bleed, most likely upper from history of ETOH liver disease with chronic thrombocytopenia, and coagulopathy. Last ETOH beverage was a "few days ago," but admits to NAPROXEN use for chrnoic pain. PT refused EGD, and signed out AGAINST MEDICAL ADVICE earlier today. He went home and drank alcohol, and returned to the ER inebriated. Due to recurrent orthostasis with c/o dizziness, pt agrees to be re-admitted. Pt gives permission for colonoscopy but not EGD, and demands general anesthesia. HOSPITAL COURSE Symptomatic Anemia -with c/o lightheadedness and dizziness and found to be orthostatic. -in the setting of ETOH liver disease, NSAID use, -with Heme positive stool -2gram decrease in Hemoglobin -type and screen -cycle h&h q6hrs -transfuse if hgb<8, active GI bleed, or recurrent orthostasis or cardiac ischemic symptoms -DDX: portal gastropathy, NSAID-induced gastritis, PUD, varices -S/P npo -S/P ivfluids -S/P iv octreotide -S/P iv protonix gtt -GI Dr. Nuno consulted for EGD 08/17/18: ALCOHOLIC GASTRITIS -on regular diet Acute Blood Loss Anemia -in the setting of ETOH liver disease, NSAID use -Heme positive stool -2gram decrease in Hemoglobin -type and screen -cycled h&h q6hrs -transfuse if hgb<8, active GI bleed, or recurrent orthostasis or cardiac ische adrián symptoms -DDX: portal gastropathy, NSAID-induced gastritis, PUD, AVM -S/P npo -S/P ivfluids -S/P iv octreotide -S/P iv protonix gtt -GI Dr. Nuno consulted for EGD 08/17/18: ALCOHOLIC GASTRITIS -on regular diet Acute UGI Bleed -in the setting of Advanced ETOH liver disease, pancytopenia NSAID use, -Heme positive stool -2gram decrease in Hemoglobin -type and cross -cycle h&h q6hrs -transfuse if hgb<8, active GI bleed, or recurrent orthostasis or cardiac ischemic symptoms -DDX: portal gastropathy, NSAID-induced gastritis, PUD, AVM -S/P npo -S/P ivfluids -S/P iv octreotide -S/P iv protonix gtt -GI Dr. Nuno consulted for EGD 08/17/18: ALCOHOLIC GASTRITIS -on regular diet Acute Alcohol Intoxication -PT refused EGD, and signed out AGAINST MEDICAL ADVICE earlier today. He went home and drank alcohol, and returned to the ER inebriated. Due to recurrent orthostasis with c/o dizziness, pt agrees to be re-admitted. Pt gives permission for colonoscopy but not EGD, and demands general anesthesia. -[facility] protocol -Ativan IV PRN for withdrawal symptoms -once able to take po meds, serax q6hrs. -MVI, folate, thiamine ETOH Liver disease -s/p NPO on admission for EGD -change to IV thiamine, folate, MVI with banana bag during resuscitation -ETOH cessation counselling provided -needs ETOH outpt rehab ETOH liver disease related pancytopenia -serial CBC -if overt intractable bleeding, consider transfusion Orthostatic Hypotension,resolved -may have an element of autonomic dysfunction -c/o persistent dizziness and lightheadedness -trial of ivfluids -trial of midodrine Gait Imbalance -due to orthostatic hypotension -may have an element of autonomic dysfunction -c/o persistent dizziness and lightheadedness -trial of ivfluids -MRI brain: 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 no new pathology -reviewed case with Neurologist geographic information systems analyst, Dr. Rooney, 08/18/18 who recommended no further workup, and most likely due to previous head traumas from ETOH intoxication and alcohol withdrawal seizures. Dizziness -due to orthostasis on ivfluids trial -trial of meclizine -r/o central causes such as cerebellar cva check basal ganglia circulation HTN -resume home meds after EGD ETOH Abuse -signed out ama earlier today to drink alcohol, and returned due to recurrent orthostasis. -s/p banana bag with IV thiamine, folate, MVI -ETOH cessation counselling provided -needs ETOH outpt rehab Diet: regular DVT prophylaxis: compression stockings DISCHARGE PHYSICAL EXAMINATION: VITALS: PLS SEE BELOW GEN:no respiratory distress. AAOx 3. no use of accessory respiratory muscles HEENT: no jaundice or icterus moist mucus membrantes no cervical LAD or thyromegaly LUNGS: clear b/l AEBE no wheezing or rales HEART: sinus tachycardia no murmurs rubs or gallops ABD: (+) BS soft NT ND no hepatosplenomegaly no rebound or guarding no caput medusa EXT: no cyanosis, clubbing, or edema NEURO:Pupils are round, reactive. Extraocular movements are without any significant ataxia. Hearing subjectively equal. Tongue appears to be midline. There is no pronator drift. Strength is 5/5 including bilateral deltoids, biceps and triceps, handgrip, iliopsoas. Tremors are present in bilateral upper extremities. Deep tendon reflexes are reduced distally and present in the upper extremities at 2s. Sensory is intact to light touch in all four extremities. Gait deferred. LABORATORY DATA, IMAGING STUDIES, MICROBIOLOGY: PLS SEE BELOW MRI brain witout contrast: History: Ataxia, rule out cerebellar CVA. Comparison is made with recent head CT from August 15, 2018 and more remote head CT study from October 03, 2017. Findings: No bony calvarial lesion is seen. Craniocervical junction and upper cervical cord are normal in appearance. There is generalized volume loss as seen on CT. There are cystic changes in the right inferior frontal lobe, left inferior frontal lobe, and right temporal lobe region where the CT study from October 03, 2017 showed parenchymal hematomas. Encephalomalacia is seen in these locations as on CT. There is hemosiderin staining in the margins of the cystic changes. There is a small focus of old hemosiderin staining in the subcortical white matter of the left posterior frontal lobe as well. There is no evidence of acute intracranial hemorrhage. There is extensive small vessel atherosclerotic change in the periventricular and subcortical white matter of the supratentorial brain bilaterally. Diffusion weighted scans show no evidence of restricted diffusion to suggest acute ischemia. There is no evidence of cerebellar infarction. No extra-axial mass or fluid collection is appreciated. No midline shift seen. Impression: Moderate generalized volume loss. Evidence of old intracranial hemorrhage affecting the frontal lobes bilaterally and the right temporal lobe. There are extensive small vessel atherosclerotic changes. No acute intracranial lesion. Electronically Signed by Bienvenido Ling MD 08/18/2018 01:47 P TIME SPENT ON DISCHARGE: 32 MINUTES Vital Signs/I&Os Vital Signs Date Time Temp Pulse Resp B/P (MAP) Pulse Ox O2 Delivery O2 Flow Rate FiO2 08/19/18 06:00 83 148/86 08/18/18 14:37 96.7 18 98 08/17/18 19:50 Room Air I&O- Last 24 Hours up to 6 AM 08/19/18 06:00 Intake Total 3060 ml Output Total 1200 ml Balance 1860 ml Laboratory Data Labs 24H Laboratory Tests 2 08/19/18 05:14: Nucleated Red Blood Cells % (auto) 0.0, Immature Platelet Fraction 6.7, Prothrombin Time 13.1, Prothromb Time International Ratio 1.02, Activated Partial Thromboplast Time 27.9, Anion Gap 7L, Glomerular Filtration Rate > 60.0, Blood Urea Nitrogen 5L, Creatinine 0.64L, Sodium Level 136, Potassium Level 3. 0L, Chloride Level 98, Carbon Dioxide Level 31, Calcium Level 8.1L, Aspartate Amino Transf (AST/SGOT) 88H, Alanine Aminotransferase (ALT/SGPT) 71, Alkaline Phosphatase 118H, Total Bilirubin 1.2H, Total Protein 6.6, Albumin 3.2, Magnesium Level 1.2L, Albumin/Globulin Ratio 0.94L CBC/BMP Laboratory Tests 08/18/18 12:11 08/18/18 23:48 08/19/18 05:14 Red Blood Count 3.18 L, Mean Corpuscular Volume 99.1 H, Mean Corpuscular Hemoglobin 33.6 H, Mean Corpuscular Hemoglobin Concent 34.0, Red Cell Distribution Width 13.3, Calcium Level 8.1 L, Aspartate Amino Transf (AST/SGOT) 88 H, Alanine Aminotransferase (ALT/SGPT) 71, Alkaline Phosphatase 118 H, Total Bilirubin 1.2 H, Total Protein 6.6, Albumin 3.2 Discharge Medications Scheduled Folic Acid (Folic Acid) 1 Mg Tablet, 1 MG PO DAILY, (Reported) Lactulose (Lactulose) 10 Gm/15 Ml Solution, 15 ML PO DAILY, (Reported) Meclizine HCl (Meclizine HCl) 25 Mg Tablet, 25 MG PO ACHS Midodrine HCl (Midodrine HCl) 2.5 Mg Tablet, 2.5 MG PO TID Multivitamins (Thera M Plus Tablet) 1 Each Tablet, 1 TAB PO DAILY, (Reported) Nicotine (Nicotine Patch) 21 Mg Patch.td24, 1 PATCH TOP DAILY, (Reported) Omeprazole Magnesium (Prilosec Otc) 20 Mg Tablet.dr, 20 MG PO BID Propranolol HCl (Propranolol HCl) 20 Mg Tablet, 40 MG PO BID, (Reported) Sucralfate (Carafate) 1 Gm Tablet, 1 GM PO ACHS 4 times per day take on an empty stomach Thiamine HCl (Thiamine HCl) 100 Mg Tablet, 100 MG PO DAILY, (Reported) Scheduled PRN Acetaminophen (Acetaminophen) 500 Mg Tablet, 500 MG PO Q4H PRN for HEADACHE, (Reported) Miscellaneous Medications [Med Rec Comment] , (Reported) MEDS E-SCRIBED TO PHARMACY ON 07/29/18 WERE NEVER RECEIVED, PT HAS NOT STARTED THEM Allergies Coded Allergies: ceftriaxone (Verified Adverse Reaction, Intermediate, FEELS LIKE "PASSING OUT", 08/17/18) FABIAN LEA MD Aug 19, 2018 09:53
[2018-08-19 11:35] VITALS: BP 140/84
[2018-08-19] MEDS ORDERED: MIDODRINE 2.5 MG TAB PO SCH (12:00)
[2018-08-19 12:18] LABS: HEMATOCRIT 34.6 % (42.0-52.0); HEMOGLOBIN 11.3 g/dl (13.5-17.5)
[2018-08-20] MEDS ORDERED: FLUDROCORTISONE ACETATE 0.1 MG TAB PO SCH (09:00)
== END 2018-08-19 14:33 | disposition home or self-care (01) | DRG 377 ==
LOC: M ED 15:37 → EDBD 15:37 → M ED INP 17:39 → M MS4PR 20:10 → OBSVTOIN 08-18 11:56 → M MSPAV 08-18 14:21
PROVIDERS: ADMIT General Practice; ATTEND General Practice
PROC: 0DB68ZX Excision of Stomach, Via Natural or Artificial Opening Endoscopic, Diagnostic (ICD-10-PCS; principal; 2018-08-17 20:00)
DX: K29.21 Alcoholic gastritis with bleeding (principal); I85.11 Secondary esophageal varices with bleeding; D62 Acute posthemorrhagic anemia; D61.818 Other pancytopenia; I10 Essential (primary) hypertension; E87.6 Hypokalemia; Z91.19 Patient's noncompliance with other medical treatment and regimen; I95.0 Idiopathic hypotension; K70.30 Alcoholic cirrhosis of liver without ascites; D69.6 Thrombocytopenia, unspecified; Z79.899 Other long term (current) drug therapy; Z88.8 Allergy status to other drugs, medicaments and biological substances; F10.229 Alcohol dependence with intoxication, unspecified

== ENCOUNTER 2018-08-27 23:09 | Emergency (ER) | payer OTHER ==
[~2018-08-27] VITALS: Ht 185.4 cm; Wt 88.6 kg
[~2018-08-27 23:09] MED LIST changes: +CARA1TAB6 PO; +MECL-86 PO; +MIDO2.5T PO; +PRIL20TA2 PO
[2018-08-27 23:26] VITALS: BP 108/75
== END 2018-08-28 01:25 | disposition left against medical advice (07) ==
LOC: M ED 23:09
DX: F10.229 Alcohol dependence with intoxication, unspecified (principal); F91.9 Conduct disorder, unspecified; Z79.899 Other long term (current) drug therapy

== ENCOUNTER 2018-08-28 21:58 | Emergency (ER) | payer OTHER ==
[~2018-08-28] VITALS: Ht 185.4 cm; Wt 88.6 kg
[2018-08-28 22:24] VITALS: BP 83/54
[2018-08-28] MEDS ORDERED: MULTIVITAMIN -ADULT INJECTION 10 ML, THIAMINE INJection 100 MG, FOLIC ACID 1 MG in NS 1... IV ONE (22:45)
--- NOTE | 2018-08-29 06:39 | ECGEPIP ---
[facility] - ED Test Date: 2018-08-28 Pat Name: KAR REYES Department: Room: - Gender: Male Dispute Coordinator: joann : 1960 Requested By: ANIBAL ROMAN Order Number: [id number] Reading MD: Antonette Bazzi Measurements Intervals [place] Rate: 83 P: 53 TN: 124 QRS: 29 QRSD: 109 T: 35 QT: 404 QTc: 477 Interpretive Statements SINUS RHYTHM IVCD POOR R WAVE PROGRESSION NONSPECIFIC ST T WAVE CHANGES CW 08/17/18 RATE DECREASED SIMILAR MORPHOLOGY Electronically Signed on 08-29-2018 6:38:53 EDT by Antonette Bazzi
== END 2018-08-28 23:15 | disposition left against medical advice (07) ==
LOC: M ED 21:58
DX: F10.20 Alcohol dependence, uncomplicated (principal); F98.9 Unspecified behavioral and emotional disorders with onset usually occurring in childhood and adolescence; I45.4 Nonspecific intraventricular block; Z53.21 Procedure and treatment not carried out due to patient leaving prior to being seen by health care provider; Z87.820 Personal history of traumatic brain injury; K70.10 Alcoholic hepatitis without ascites; D69.6 Thrombocytopenia, unspecified; K92.2 Gastrointestinal hemorrhage, unspecified; Z79.899 Other long term (current) drug therapy; Z88.1 Allergy status to other antibiotic agents

== ENCOUNTER 2018-08-30 00:27 | Emergency (ER) | payer OTHER ==
[~2018-08-30] VITALS: Ht 185.4 cm; Wt 88.6 kg
[2018-08-30 00:32] VITALS: BP 118/81
[2018-08-30] MEDS ORDERED: LISI-1046 PO (00:34)
[2018-08-30] MEDS ORDERED: MULTIVITAMIN -ADULT INJECTION 10 ML, THIAMINE INJection 100 MG, FOLIC ACID 1 MG in NS 1... IV ONE (00:45)
[2018-08-30 00:55] LABS: BASO # 0.1 10^3/uL (0.0-0.2); BASO % 2.3 % (0.0-1.0); EOS # 0.1 10^3/uL (0.0-0.50); EOS % 1.7 % (0.0-3.0); HEMATOCRIT 36.5 % (42.0-52.0); HEMOGLOBIN 12.3 g/dl (13.5-17.5); LYMPH # 1.2 10^3/uL (1.5-4.5); LYMPH % 39.9 % (24.0-44.0); MEAN CORPUSCULAR HEMOGLOBIN 33.5 pg (27.0-33.0); MEAN CORPUSCULAR HGB CONC 33.7 g/dl (32.0-36.5); MEAN CORPUSCULAR VOLUME 99.5 fl (80.0-96.0); MONO # 0.2 10^3/uL (0.0-0.8); MONO % 7.9 % (0.0-5.0); NEUTROPHILS # 1.5 10^3/uL (1.8-7.7); NEUTROPHILS % 47.9 % (36.0-66.0); PLATELET COUNT, AUTOMATED 225 10^3/uL (150-450); RED BLOOD COUNT 3.67 10^6/uL (4.30-6.10)
[2018-08-30 01:23] LABS: BLOOD UREA NITROGEN 11 MG/DL (7-18); CALCIUM LEVEL 8.6 MG/DL (8.5-10.1); CARBON DIOXIDE LEVEL 27 MEQ/L (21-32); CHLORIDE LEVEL 103 MEQ/L (98-107); CREATININE FOR GFR 0.75 MG/DL (0.70-1.30); ETHYL ALCOHOL (ETHANOL) 0.309 % (0.000-0.010); GLOMERULAR FILTRATION RATE > 60.0 (>56); GLUCOSE, FASTING 72 MG/DL (70-100); POTASSIUM SERUM 3.4 MEQ/L (3.5-5.1); SODIUM LEVEL 142 MEQ/L (136-145)
== END 2018-08-30 01:10 | disposition left against medical advice (07) ==
LOC: M ED 00:27
DX: Z76.5 Malingerer [conscious simulation] (principal); F10.20 Alcohol dependence, uncomplicated; I10 Essential (primary) hypertension; Z87.820 Personal history of traumatic brain injury; Z88.1 Allergy status to other antibiotic agents
CPT/HCPCS: 36415; 80048; 85025; 99284; G0480

== ENCOUNTER 2018-09-01 22:39 | Emergency (ER) | payer OTHER ==
[~2018-09-01] VITALS: Ht 185.4 cm; Wt 88.6 kg
[2018-09-01 23:20] VITALS: BP 84/57
[2018-09-01 23:22] LABS: BASO # 0.1 10^3/uL (0.0-0.2); BASO % 2.6 % (0.0-1.0); EOS % 0.9 % (0.0-3.0); HEMATOCRIT 35.7 % (42.0-52.0); HEMOGLOBIN 11.9 g/dl (13.5-17.5); LYMPH % 44.3 % (24.0-44.0); MEAN CORPUSCULAR HEMOGLOBIN 33.2 pg (27.0-33.0); MEAN CORPUSCULAR HGB CONC 33.3 g/dl (32.0-36.5); MEAN CORPUSCULAR VOLUME 99.7 fl (80.0-96.0); MONO # 0.1 10^3/uL (0.0-0.8); NEUTROPHILS # 1.1 10^3/uL (1.8-7.7); NEUTROPHILS % 45.8 % (36.0-66.0); PLATELET COUNT, AUTOMATED 199 10^3/uL (150-450); RED BLOOD COUNT 3.58 10^6/uL (4.30-6.10); WHITE BLOOD COUNT 2.4 10^3/uL (4.0-10.0)
[2018-09-01] MEDS ORDERED: NS 1,000 ML IV ONE (23:30)
[2018-09-01 23:45] LABS: ALBUMIN 3.2 GM/DL (3.2-5.2); ALT/SGPT 125 U/L (12-78); BILIRUBIN,TOTAL 1.1 MG/DL (0.2-1.0); BLOOD UREA NITROGEN 11 MG/DL (7-18); CALCIUM LEVEL 8.4 MG/DL (8.5-10.1); CARBON DIOXIDE LEVEL 30 MEQ/L (21-32); CHLORIDE LEVEL 104 MEQ/L (98-107); CREATININE FOR GFR 0.81 MG/DL (0.70-1.30); GLOMERULAR FILTRATION RATE > 60.0 (>56); GLUCOSE, FASTING 118 MG/DL (70-100); POTASSIUM SERUM 3.1 MEQ/L (3.5-5.1); SODIUM LEVEL 144 MEQ/L (136-145); TOTAL PROTEIN 6.9 GM/DL (6.4-8.2)
--- NOTE | 2018-09-02 05:43 | ECGEPIP ---
[facility] - ED Test Date: 2018-09-01 Pat Name: KAR REYES Department: Room: - Gender: Male Attendant [facility]: [facility] : 1960 Requested By: CHRIS Leroy Order Number: [id number] Reading MD: Stu Champion Measurements Intervals [employer] Rate: 85 P: 57 ME: 143 QRS: 45 QRSD: 124 T: 52 QT: 431 QTc: 515 Interpretive Statements SINUS RHYTHM MODERATE INTRAVENTRICULAR CONDUCTION DELAY PROLONGED QT INTERVAL SIMILAR TO 08/28/18 Electronically Signed on 09-02-2018 5:43:25 EDT by Stu Champion
== END 2018-09-01 23:50 | disposition left against medical advice (07) ==
LOC: M ED 22:39
DX: R42 Dizziness and giddiness (principal); I45.4 Nonspecific intraventricular block; Z53.21 Procedure and treatment not carried out due to patient leaving prior to being seen by health care provider
CPT/HCPCS: 80053; 85025; 93005; 99284; G0480

== ENCOUNTER 2018-09-02 04:02 | Emergency (ER) | payer OTHER | END 2018-09-02 04:45 | disposition left against medical advice (07) | LOC: M ED 04:02 | DX: Z53.29 Procedure and treatment not carried out because of patient's decision for other reasons (principal) ==

== ENCOUNTER 2018-09-02 13:44 | Emergency (ER) | payer OTHER ==
[~2018-09-02] VITALS: Ht 185.4 cm; Wt 88.6 kg
[2018-09-02 14:01] VITALS: BP 121/87
[2018-09-02] MEDS ORDERED: NS 1,000 ML IV ONE (14:45)
== END 2018-09-02 16:11 | disposition left against medical advice (07) ==
LOC: M ED 13:44
DX: R55 Syncope and collapse (principal); I10 Essential (primary) hypertension; K70.9 Alcoholic liver disease, unspecified; R56.9 Unspecified convulsions; K92.2 Gastrointestinal hemorrhage, unspecified; Z88.1 Allergy status to other antibiotic agents; Z79.899 Other long term (current) drug therapy

== ENCOUNTER 2018-09-04 23:47 | Emergency (ER) | payer OTHER ==
[2018-09-05 01:06] VITALS: BP 145/84
== END 2018-09-05 01:16 | disposition left against medical advice (07) ==
LOC: M ED 23:47
DX: Z53.29 Procedure and treatment not carried out because of patient's decision for other reasons (principal)

== ENCOUNTER 2018-10-22 18:00 | Inpatient (IN) | payer OTHER ==
[~2018-10-22] VITALS: Ht 172.7 cm; Wt 79.9 kg
[2018-10-22] MEDS ORDERED: NS 1,000 ML IV ONE (18:45)
[2018-10-22 18:59] LABS: BASO % 0.5 % (0.0-1.0); EOS % 0.1 % (0.0-3.0); HEMATOCRIT 34.1 % (42.0-52.0); HEMOGLOBIN 11.5 g/dl (13.5-17.5); LYMPH # 0.5 10^3/uL (1.5-5.0); LYMPH % 7.1 % (24.0-44.0); MEAN CORPUSCULAR HEMOGLOBIN 32.9 pg (27.0-33.0); MEAN CORPUSCULAR HGB CONC 33.7 g/dl (32.0-36.5); MEAN CORPUSCULAR VOLUME 97.4 fl (80.0-96.0); MONO # 0.4 10^3/uL (0.0-0.8); MONO % 4.7 % (0.0-5.0); NEUTROPHILS # 6.3 10^3/uL (1.5-8.5); NEUTROPHILS % 84.4 % (36.0-66.0); PLATELET COUNT, AUTOMATED 120 10^3/uL (150-450); WHITE BLOOD COUNT 7.4 10^3/uL (4.0-10.0)
[2018-10-22 19:10] LABS: INR 1.1; PARTIAL THROMBOPLASTIN TIME 25.7 SECONDS (25.0-38.4); PROTHROMBIN TIME 13.9 SECONDS (11.8-14.0)
[2018-10-22] MEDS ORDERED: PANTOPRAZOLE 40MG INJ (PROTONIX) (C9113) IV ONE (19:15)
[2018-10-22 19:38] LABS: ALBUMIN 2.8 GM/DL (3.2-5.2); ALT/SGPT 32 U/L (12-78); BILIRUBIN,DIRECT 0.7 MG/DL (0.0-0.2); BILIRUBIN,TOTAL 1.2 MG/DL (0.2-1.0); CK-MB VALUE MASS 5.5 NG/ML (<3.6); CPK CREATINE PHOSPHOKINASE 189 U/L (39-308); MB/CK RELATIVE INDEX 2.91 (< OR =4); TOTAL PROTEIN 5.7 GM/DL (6.4-8.2); TROPONIN I 0.02 NG/ML (< 0.10)
[2018-10-22 19:39] LABS: ETHYL ALCOHOL (ETHANOL) < 0.003 % (0.000-0.010)
--- NOTE | 2018-10-22 19:51 | REP ---
HISTORY: Syncopal episode. The technique utilized in obtaining the radiograph has magnified the cardiac silhouette and accentuated the interstitial markings. The superior mediastinal structures are midline. The cardiac silhouette is unremarkable in size, shape, and position. The diaphragmatic surfaces of the lungs are regular, and the costophrenic angles are clear. The pulmonary tellez are clear. The imaged osseous structures are intact. IMPRESSION: There is no acute cardiopulmonary disease. Electronically Signed by Bhavin Coates DO 10/23/2018 09:46 A
[2018-10-22] MEDS ORDERED: NS 1,050 ML in IV 1 EA IV ONE (20:00)
--- NOTE | 2018-10-22 20:24 | REPVR ---
EXAM: CT Head Without Contrast EXAM DATE/TIME: 10/22/2018 6:59 PM CLINICAL HISTORY: 58 years old, male; Syncope and collapse TECHNIQUE: Imaging protocol: Computed tomography of the head without contrast. Radiation optimization: All CT scans at this facility use at least one of these dose optimization techniques: automated exposure control; mA and/or kV adjustment per patient size (includes targeted exams where dose is matched to clinical indication); or iterative reconstruction. COMPARISON: CT Head without contrast 08/15/2018 7:16 AM FINDINGS: Brain: There is diffuse volume loss. There is white matter lucency consistent with chronic microvascular disease. There are large areas of encephalomalacia in the right frontal and temporal lobes. There is less extensive left inferior frontal encephalomalacia. There is no acute infarct. There is no hemorrhage or extra-axial collection. Ventricles: Ventricular dilatation likely secondary to volume loss. Ventricular size is stable compared with prior scan. Bones/joints: Unremarkable. No acute fracture. Sinuses: Visualized sinuses are unremarkable. No fluid levels. Mastoid air cells: Visualized mastoid air cells are well aerated. Soft tissues: Unremarkable. IMPRESSION: 1. Bilateral inferior frontal and right temporal encephalomalacia. In this location, the most likely etiology is old trauma. 2. No acute intracranial lesion or injury and no change from prior scan. Electronically signed by: Matthew Velazquez On 10/22/2018 20:24:21 PM
--- NOTE | 2018-10-22 20:52 | REPVR ---
EXAM: CT Abdomen and Pelvis Without Contrast EXAM DATE/TIME: 10/22/2018 6:59 PM CLINICAL HISTORY: 58 years old, male; Abdominal pain; Generalized; Additional info: Abdominal pain; Gi bleeding TECHNIQUE: Imaging protocol: Computed tomography of the abdomen and pelvis without contrast. Radiation optimization: All CT scans at this facility use at least one of these dose optimization techniques: automated exposure control; mA and/or kV adjustment per patient size (includes targeted exams where dose is matched to clinical indication); or iterative reconstruction. COMPARISON: CT ABD PELVIS WITH CONTRAST 05/06/2018 12:05 PM FINDINGS: Liver: There is extensive hepatic steatosis. No focal hepatic lesion. Gallbladder and bile ducts: The gallbladder contents are slightly hyperdense consistent with sludge. No calcified stones. No wall thickening. Bile ducts are normal. Pancreas: The pancreas is normal. Series 301 images 62 and 66 demonstrate mild streaky inflammatory density adjacent to the head of the pancreas. No evidence of free fluid or fluid collection. No free air. Spleen: The spleen is normal. Adrenals: The adrenal glands are normal. Kidneys and ureters: The kidneys are normal. No hydronephrosis. No calculus. Stomach and bowel: There is no evidence of bowel wall thickening or distention. Appendix: The appendix is normal. Intraperitoneal space: See Pancreas Finding. Vasculature: Unremarkable. No abdominal aortic aneurysm. Lymph nodes: Unremarkable. No enlarged lymph nodes. Bladder: The bladder is contracted. It is otherwise normal. Reproductive: There is a large right hydrocele. Bones/joints: There are advanced degenerative changes at L5-S1. No fracture. Soft tissues: Unremarkable. IMPRESSION: 1. There are mild focal inflammatory changes seen adjacent to the head of the pancreas. This requires clinical and laboratory evaluation for possible acute pancreatitis. 2. Extensive hepatic steatosis. 3. Large hydrocele in the right hemiscrotum also present on prior scan. Electronically signed by: Matthew Velazquez On 10/22/2018 20:51:26 PM
[2018-10-22] MEDS: THIAMINE 100 MG TAB PO SCH (21:00)
[2018-10-22] MEDS ORDERED: NS 1,000 ML IV SCH ×2 (21:15→21:44)
[2018-10-22 21:17] LABS: LIPASE 59 U/L (73-393)
[2018-10-22] MEDS ORDERED: PIPERACILLIN/TAZOBACTAM SOD 3.375 GM in D5W MINI-BAG PLUS 50 ML IV ONE (21:45)
[2018-10-22] MEDS: OCTREOTIDE ACETATE 1,200 MCG in NS 238.8 ML IV SCH (22:01)
[2018-10-22] MEDS: NS 1,000 ML IV SCH (22:01)
--- NOTE | 2018-10-22 22:19 | HPEPDOC ---
General Date of Admission 10/22/18 Date of Service: Oct 22, 2018 Attending Physician: LONI LEWIS DO Chief Complaint The patient is a 58-year-old male admitted with a reason for visit of Syncope. Source: Patient Exam Limitations: No limitations Timing/Duration: 24 hours Severity: Moderate Associated Symptoms: Weakness, Hypotension, Dizziness History of Present Illness Patient is 58 years old male with past mental history of EtOH abuse, alcoholic seizures, thrombocytopenia presented hospital with profound weakness and hypotension. Patient brought to Hospital by police. Patient stated that in the morning he developed syncope after he stood up. Patient was unresponsive for few mins, the police arrived first, they prepared to do a chest compression but p atient woke up after sternal rub. After that they brought him to the hospital. In emergency room patient was found to have positive stool for blood. His hemoglobin level was 11.5, lipase level 59. Abdominal CAT scan showed mild focal inflammatory changes seen adjacent to the head of the pancreas. This requires clinical and laboratory evaluation for possible acute pancreatitis, extensive hepatic steatosis. Patient denies fever, chills, nausea, chest pain, shortness of breath, diarrhea Home Medications No Active Prescriptions or Reported Meds Allergies Coded Allergies: ceftriaxone (Verified Adverse Reaction, Intermediate, FEELS LIKE "PASSING OUT", 08/17/18) Past Medical History Medical History Hypertension, alcohol-related seizure disorder, chronic thrombocytopenia Surgical History Carpal tunnel surgery Family History Father from metastatic cancer Social History * Smoker: Denies Alcohol: heavy Drugs: denies A-FIB/CHADSVASC A-FIB History Current/History of A-Fib/PAF?: No Current PO Anticoag Therapy: No Review of Systems Constitutional: Reports: Weakness, Fatigue; Denies: Chills, Fever Eyes: Denies: Pain, Vision change ENT: Denies: Head Aches, Ear Pain Skin: Denies: Rash, Lesions Pulmonary: Denies: Dyspnea, Cough Cardiovascular: Reports: Palpitations; Denies: Chest Pain Gastrointestinal: Reports: Hematochezia Genitourinary: Denies: Dysuria, Frequency Hematologic: Denies: Bruising, Bleeding Excessively Endocrine: Denies: Polydipsia, Polyphagia Musculoskeletal: Denies: Neck Pain, Back Pain Neurological: Denies: Weakness, Numbness Psych: Reports: Mood Normal Physical Examination General Exam: Positive: Alert, Cooperative Eye Exam: Positive: PERRLA, Conjunctiva & lids normal ENT Exam: Positive: Atraumatic Neck Exam: Positive: Supple; Negative: JVD Chest Exam: Positive: Clear to auscultation, Normal air movement Heart Exam: Positive: Tachycardic Telemetry: Positive: Tachycardia Abdomen Exam: Positive: BS Hyperactive Extremity Exam: Negative: Clubbing, Cyanosis Skin Exam: Positive: Breakdown (multiple skin abrasion on his elbows and hands ); Negative: Nl turgor and temperature Neuro Exam: Positive: Strength at 5/5 X4 ext, Cranial Nerves 3-12 NL Psych Exam: Positive: Mental status NL Vital Signs Vital Signs Date Time Temp Pulse Resp B/P (MAP) Pulse Ox O2 Delivery O2 Flow Rate FiO2 10/22/18 21:02 100/64 (76) 10/22/18 20:13 86 18 98 10/22/18 18:58 95.2 Room Air Laboratory Data Labs 24H Laboratory Tests 2 10/22/18 18:42: Immature Granulocyte % (Auto) 3.2H, White Blood Count 7.4, Red Blood Count 3.50L, Hemoglobin 11.5L, Hematocrit 34.1L, Mean Corpuscular Volume 97.4H, Mean Corpuscular Hemoglobin 32.9, Mean Corpuscular Hemoglobin Concent 33.7, Red Cell Distribution Width 13.3, Platelet Count 120L, Neutrophils (%) (Auto) 84.4H, Lymphocytes (%) (Auto) 7.1L, Monocytes (%) (Auto) 4.7, Eosinophils (%) (Auto) 0.1, Basophils (%) (Auto) 0.5, Neutrophils # (Auto) 6.3, Lymphocytes # (Auto) 0.5L, Monocytes # (Auto) 0.4, Eosinophils # (Auto) 0.0, Basophils # (Auto) 0.0, Nucleated Red Blood Cells % (auto) 0.8H, Prothrombin Time 13.9, Prothromb Time International Ratio 1.10, Activated Partial Thromboplast Time 25.7, Lactic Acid Level 3.7*H, Aspartate Amino Transf (AST/SGOT) 66H, Alanine Aminotransferase (ALT/SGPT) 32, Alkaline Phosphatase 105, Total Bilirubin 1.2H, Direct Bilirubin 0.7H, Total Creatine Kinase 189, Creatine Kinase MB 5.5H, Creatine Kinase MB Relative Index 2.91, Troponin I 0.02, Total Protein 5.7L, Albumin 2.8L, Albumin/Globulin Ratio 0.97L, Lipase 59L, Ethyl Alcohol Level < 0.003 10/22/18 18:49: POC Glucose (Misc Panel) 157H, POC Sodium (Misc Panel) 140, POC Potassium (Misc Panel) 3.4L, POC Chloride (Misc Panel) 100, POC Total CO2 (Misc Panel) 26.0, POC Blood Urea Nitrogen (Misc Panel 62H, POC Ionized Calcium (Misc Panel) 4.2L, POC Creatinine (Misc Panel) 2.6H, POC Hematocrit (Misc Panel) 36.0L CBC/BMP Laboratory Tests 10/22/18 18:42 Red Blood Count 3.50 L, Mean Corpuscular Volume 97.4 H, Mean Corpuscular Hemoglobin 32.9, Mean Corpuscular Hemoglobin Concent 33.7, Red Cell Distribution Width 13.3, Neutrophils (%) (Auto) 84.4 H, Lymphocytes (%) (Auto) 7.1 L, Monocytes (%) (Auto) 4.7, Eosinophils (%) (Auto) 0.1, Basophils (%) (Auto) 0.5, Neutrophils # (Auto) 6.3, Lymphocytes # (Auto) 0.5 L, Monocytes # (Auto) 0.4, Eosinophils # (Auto) 0.0, Basophils # (Auto) 0.0 Assessment/Plan Patient is 58 years old male with past mental history of EtOH abuse, alcoholic seizures, thrombocytopenia presented hospital with profound weakness and hypotension. Patient brought to Hospital by police. Patient stated that in the morning he developed syncope after he stood up. In emergency room patient was found to have positive stool for blood. Problems (1) GI bleed Problem Text: Dr Jones rec octreotide drip , Zosyn, NPO for possible procedure tomorrow Protonix IV IV fluid will transfuse if hb <7 H&H every 6 hours (2) Dehydration Status: Acute Problem Text: Continue hydration (3) Syncope Status: Acute Problem Text: Most likely secondary to GI bleed CAT scan of head negative for acute bleeding (4) Alcohol dependence Status: Acute Problem Text: [facility] protocol (5) GUANAKITO (acute kidney injury) Status: Acute Problem Text: Secondary to dehydration We will hold lisinopril Continue volume expansion Plan / VTE VTE Prophylaxis Ordered?: No VTE Exclusion Pharmacological: Active Bleeding LONI LEWIS DO Oct 22, 2018 22:18
[2018-10-22 23:50] VITALS: BP 96/66
[2018-10-23] VITALS (12 sets, daily range): BP systolic 62–102; BP diastolic 42–68
[2018-10-23] MEDS: NS 1,000 ML IV SCH (03:50)
[2018-10-23] MEDS: PIPERACILLIN/TAZOBACTAM SOD 3.375 GM in D5W MINI-BAG PLUS 50 ML IV SCH ×4 (04:00→22:21)
[2018-10-23 05:17] LABS: HEMATOCRIT 31.9 % (42.0-52.0); HEMOGLOBIN 10.6 g/dl (13.5-17.5); MEAN CORPUSCULAR HEMOGLOBIN 31.9 pg (27.0-33.0); MEAN CORPUSCULAR HGB CONC 33.2 g/dl (32.0-36.5); MEAN CORPUSCULAR VOLUME 96.1 fl (80.0-96.0); RED BLOOD COUNT 3.32 10^6/uL (4.30-6.10); WHITE BLOOD COUNT 4.3 10^3/uL (4.0-10.0)
[2018-10-23 05:40] LABS: ALBUMIN 2.3 GM/DL (3.2-5.2); BILIRUBIN,TOTAL 1.6 MG/DL (0.2-1.0); CALCIUM LEVEL 7.4 MG/DL (8.5-10.1); CREATININE FOR GFR 2.01 MG/DL (0.70-1.30); GLOMERULAR FILTRATION RATE 36.8 (>56); MAGNESIUM LEVEL 1.5 MG/DL (1.8-2.4); POTASSIUM SERUM 3.6 MEQ/L (3.5-5.1); TOTAL PROTEIN 5.3 GM/DL (6.4-8.2)
[2018-10-23 05:48] LABS: PLATELET COUNT, AUTOMATED 81 10^3/uL (150-450)
--- NOTE | 2018-10-23 05:55 | ECGEPIP ---
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
[2018-10-23] MEDS ORDERED: NS 1,000 ML IV ONE (08:15)
[2018-10-23] MEDS: PANTOPRAZOLE 40MG INJ (PROTONIX) (C9113) IV SCH ×2 (09:09→19:51)
[2018-10-23] MEDS: MULTIVITAMINS/MINERALS THERAP 1 TAB PO SCH (09:09)
[2018-10-23] MEDS: LR 1,000 ML IV SCH ×3 (09:09→20:00)
[2018-10-23] MEDS: THIAMINE 100 MG TAB PO SCH ×2 (09:09→19:50)
[2018-10-23] MEDS: FOLIC ACID 1 MG TAB PO SCH (09:09)
[2018-10-23] MEDS ORDERED: LR 1,000 ML IV ONE (10:15)
[2018-10-23] MEDS ORDERED: MAG SULF 1GM/100ML (MAG RUN) 1 GM in IV 1 EA IV ONE (11:00)
--- NOTE | 2018-10-23 14:01 | IPN ---
DATE: 10/23/2018 Erwin is seen on my rounding for the hospitalist. He has acute pancreatitis, acute kidney injury, hypotension and syncope. He is seen on PCU with law enforcement present in the room. Apparently had heme positive stool and gastroenterology is seeing him, probable EGD today. I was called to the bedside for hypotension. Systolic pressure was 60. He was asymptomatic. No shortness of breath or chest pain. Describes dry mouth and per nursing staff he has not had any urine output overnight. PHYSICAL EXAMINATION: 62/42, pulse 76, respiratory rate 18, 95% oxygen saturation. He is alert and conversant in no distress. He seems to be perfusing skin well. Mental status examination normal. Lungs clear. Heart regular rhythm. Abdomen soft, nontender, no masses. No peripheral edema. LABS: White count 4.3, hemoglobin 10.6, platelets are 81. Sodium 140, potassium 3.6, BUN 69, creatinine 2.0, glucose 115, lactic acid was down to normal. IMPRESSION: 1. Hypotension secondary to volume depletion. I gave him a bolus of saline. We will start Lactated Ringer's 250 per hour. Bladder scan will be performed but I think he is not voiding because of lack of adequate hydration. 2. Heme positive stool with anemia and thrombocytopenia. I suspect the patient had some underlying cirrhosis. He has had thrombocytopenia intermittently. In August his platelets were in the 50s. 3. Alcoholism. He signed out AMA in the past due to wanting a drink. Apparently there is a law enforcement presence in his room so that he will not be leaving AMA. Thiamine has been ordered. Ativan has been ordered per protocol. 4. Syncope, probably from volume depletion. CT of the head was negative for bleed. He has a past history of frontal lobe hematomas but none currently at present. 5. Acute kidney injury. Lisinopril is on hold. IV fluids have been ordered. Bladder scan pending. Repeat labs ordered. 6. Thrombocytopenia. Looking through his records, he develops thrombocytopenia with platelets down in the 70s. Usually in the context of alcohol abuse. He had a negative blood alcohol on admission. If platelets do not rebound would consider a hematology consultation.
[2018-10-23 15:23] LABS: HEMATOCRIT 28.8 % (42.0-52.0); HEMOGLOBIN 9.4 g/dl (13.5-17.5)
[2018-10-23 15:25] LABS: AMPHETAMINES LEVEL URINE NEGATIVE (NEGATIVE); BARBITURATES URINE NEGATIVE (NEGATIVE); BENZODIAZEPINES URINE NEGATIVE (NEGATIVE); CANNABINOIDS URINE NEGATIVE (NEGATIVE); COCAINE METABOLITE URINE NEGATIVE (NEGATIVE); METHADONE URINE NEGATIVE (NEGATIVE); OPIATES URINE NEGATIVE (NEGATIVE); PHENCYCLIDINE URINE NEGATIVE (NEGATIVE)
--- NOTE | 2018-10-23 18:31 | CR.PDOC ---
General Date of Consultation: Oct 23, 2018 Referring Provider: LONI LEWIS DO Attending Physician: MALINI JUARES MD Consultation Reason for consult: Fecal occult blood positive. HPI: 58 years old male with heavy alcohol use, alcohol related seizures ( unclear history), thrombocytopenia presented to hospital with profound weakness. Patient reports having a episode of syncope. In ED patient was found to have mild anemia and stool positive for occult blood. His hemoglobin level was 11.5, lipase level 59. GI consulted for the same. Patient does not give detailed history even thoug h he is alert oriented times 3. Patients reports feeling weak with loss of appetite and poor oral food intake for past few weeks which is partly related to his heavy alcohol use( 3-4 drinks of scotch daily). Patient also reports having dark stools 3 days ago since then does not have any bowel movements. Patients last alcohol drink was 2 days ago and he reports that he gets withdrawal symptoms on cessation of alcohol. Patient denies abdominal pain, fever, chills, vomiting, chest pain, shortness of breath, diarrhea. Patient is not sure if he had seizure or syncopal episode. Pertinent negative GI symptoms: Patient denies, vomiting, diarrhea, abdominal pain, early satiety or unintentional weight loss. No history of hematemesis, melena or hematochezia. Review of Systems: GI: as stated above CVS: No chest pain, No palpitations, No leg swelling. 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 Hematology: No bruising, No gum bleeding, Musculoskeletal: No joint pain, ambulating well. Skin: No rash : No hematuria, No burning sensation of the urine ENT: No ear discharge/ pain, No dysphagia. Eyes: No photophobia. Home medications: reviewed. Antithrombotic agents - None Medical h/o: As above. Surgical h/o: None on abdomen. Social h/o: Alcohol- heavy alcohol use , tobacco- Denies , IVDA/ drugs- Denies. Family h/o of GI cancers - None Prior Endoscopies: --- EGD August 2018 for similar presentation, NO esophageal varices, no eliseo severe gastritis. --- Colonoscopy - None Prior GI evaluation: Previously seen by Dr. Lazaro in Past hospitalization. Exam: Vitals: reviewed General: Alert and oriented x 3, not in distress HEENT: NO pallor, no icterus. Normal oropharynx, NO cervical lymph nodes. Chest: symmetric with bilateral clear air entry, CVS: S1, S2 heard, normal, no murmurs . Abdomen: non-distended, no surgical scars, soft, non-tender, no palpable masses, normal bowel sounds heard. Rectal exam: Patient refused / Deferred at this time in view of scheduled colonoscopy. Extremities: no pedal edema, pulses palpable. Tremulousness noted. 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 Moves all extremities Skin: no rash. Labs: reviewed. Imaging tests: reviewed CT abdomen: showed mild focal inflammatory changes seen adjacent to the head of the pancreas. This requires clinical and laboratory evaluation for possible acute pancreatitis, extensive hepatic steatosis. Impression: - Episode of dark stools 3 days ago with low hemoglobin and hematocrit but no dark stool or vomiting or abdominal pain for the past 3 days. with recent EGD In August 2018 - showing no esophageal varices, DDx- likely alcoholic gastritis vs AVM vs MWT. No overt active bleeding at this time. - Abnormal CT scan showing possible pancreatitis. But abdominal pain and improving appetite. - Heavy alcohol use in past with current symptoms of tremulousness.--- DDx- Alcohol withdrawal - Abnormal Liver panel -- DDx- rule out Alcoholic liver disease vs alcoholic hepatitis discriminant factor <1.1 based on today's labs. Recommendations: - Patient educated about the test results, possible differential diagnoses and All questions answered. - IV fluids - prefer ringers lactate drip-- titrate to patient fluid status - Monitor and management for alcohol withdrawal as per primary team. Consider alcohol rehab/childcare worker evaluation. - Avoid NSAIDs. - Give Pantoprazole 40 mg Iv twice daily. - Consider IV antibiotics for SBC prophylaxis ( prefer ciprofloxacin if allergic to ceftriaxone). - Continue octreotide drip for now. - As discriminant factor <32 , will not benefit from steroids at this time. - Give Thiamine , folic acid and multivitamin. - For possible pancreatitis based on CT scan as patient is reporting no abdominal pain and having appetite will consider advancing diet. - As no overt active bleeding, will schedule for elective EGD and colonoscopy for FOBT positive, based on clinical course. - Advance diet as tolerated and NPO after midnight on Thursday for EGD On Thursday. - The procedures, indications, risks (bleeding, perforation, infection, hypotension, respiratory depression, allergy, need for endotracheal intubation, surgery, colostomy, cardiac arrest, even ), benefits, limitations (e.g., missing a lesion), and all other alternatives (including no intervention) were explained to the patient who understood and agreed for the procedures. Plan of care discussed with patient and primary team. Patient verbalized understanding and agreed with the plan. Vital Signs/I&O Vital Signs Date Time Temp Pulse Resp B/P (MAP) Pulse Ox O2 Delivery O2 Flow Rate FiO2 10/23/18 16:00 102/68 10/23/18 16:00 97.2 88 18 97 10/22/18 23:18 Room Air l I&O- Last 24 Hours up to 6 AM 10/23/18 06:00 Intake Total 2890 ml Output Total 0 ml Balance 2890 ml Laboratory Data Labs 24H Laboratory Tests 2 10/22/18 18:42: Immature Granulocyte % (Auto) 3.2H, White Blood Count 7.4, Red Blood Count 3.50L, Hemoglobin 11.5L, Hematocrit 34.1L, Mean Corpuscular Volume 97.4H, Mean Corpuscular Hemoglobin 32.9, Mean Corpuscular Hemoglobin Concent 33.7, Red Cell Distribution Width 13.3, Platelet Count 120L, Neutrophils (%) (Auto) 84.4H, Lymphocytes (%) (Auto) 7.1L, Monocytes (%) (Auto) 4.7, Eosinophils (%) (Auto) 0.1, Basophils (%) (Auto) 0.5, Neutrophils # (Auto) 6.3, Lymphocytes # (Auto) 0.5L, Monocytes # (Auto) 0.4, Eosinophils # (Auto) 0.0, Basophils # (Auto) 0.0, Nucleated Red Blood Cells % (auto) 0.8H, Prothrombin Time 13.9, Prothromb Time International Ratio 1.10, Activated Partial Thromboplast Time 25.7, Lactic Acid Level 3.7*H, Aspartate Amino Transf (AST/SGOT) 66H, Alanine Aminotransferase (ALT/SGPT) 32, Alkaline Phosphatase 105, Total Bilirubin 1.2H, Direct Bilirubin 0.7H, Total Creatine Kinase 189, Creatine Kinase MB 5.5H, Creatine Kinase MB Relative Index 2.91, Troponin I 0.02, Total Protein 5.7L, Albumin 2.8L, Albumin/Globulin Ratio 0.97L, Lipase 59L, Ethyl Alcohol Level < 0.003 10/22/18 18:49: POC Glucose (Misc Panel) 157H, POC Sodium (Misc Panel) 140, POC Potassium (Misc Panel) 3.4L, POC Chloride (Misc Panel) 100, POC Total CO2 (Misc Panel) 26.0, POC Blood Urea Nitrogen (Misc Panel 62H, POC Ionized Calcium (Misc Panel) 4.2L, POC Creatinine (Misc Panel) 2.6H, POC Hematocrit (Misc Panel) 36.0L 10/23/18 05:01: Nucleated Red Blood Cells % (auto) 0.5H, Aspartate Amino Transf (AST/SGOT) 55H, Alanine Aminotransferase (ALT/SGPT) 24, Alkaline Phosphatase 86, Total Bilirubin 1.6H, Total Protein 5.3L, Albumin 2.3L, Albumin/Globulin Ratio 0.77L, Immature Platelet Fraction 6.8, Anion Gap 9, Glomerular Filtration Rate 36.8L, Lactic Acid Followup at 4 Hours 1.1, Blood Urea Nitrogen 59H, Creatinine 2.01H, Sodium Level 140, Potassium Level 3.6, Chloride Level 108H, Carbon Dioxide Level 23, Calcium Level 7.4L, Magnesium Level 1.5L 10/23/18 14:15: Urine Color YELLOW, Urine Appearance HAZY, Urine pH 5.0, Urine Specific Ponce 1.012, Urine Protein NEGATIVE, Urine Glucose (UA) NEGATIVE, Urine Ketones NEGATIVE, Urine Blood 1+H, Urine Nitrite NEGATIVE, Urine Bilirubin NEGATIVE, Urine Urobilinogen 0.2, Urine Leukocyte Esterase NEGATIVE, Urine WBC (Auto) 6H, Urine RBC (Auto) 4H, Urine Hyaline Casts (Auto) 0, Urine Bacteria (Auto) 1+H, Urine Squamous Epithelial Cells 0, Urine Sperm (Auto) , Urine Amphetamines Screen NEGATIVE, Urine Benzodiazepines Screen NEGATIVE, Urine Opiates Screen NEGATIVE, Urine Methadone Screen NEGATIVE, Urine Barbiturates Screen NEGATIVE, Urine Phencyclidine Screen NEGATIVE, Urine Cocaine Metabolite Screen NEGATIVE, Urine Cannabinoids Screen NEGATIVE CBC/BMP Laboratory Tests 10/22/18 18:42 Red Blood Count 3.50 L, Mean Corpuscular Volume 97.4 H, Mean Corpuscular Hemoglobin 32.9, Mean Corpuscular Hemoglobin Concent 33.7, Red Cell Distribution Width 13.3, Neutrophils (%) (Auto) 84.4 H, Lymphocytes (%) (Auto) 7.1 L, Monocytes (%) (Auto) 4.7, Eosinophils (%) (Auto) 0.1, Basophils (%) (Auto) 0.5, Neutrophils # (Auto) 6.3, Lymphocytes # (Auto) 0.5 L, Monocytes # (Auto) 0.4, Eosinophils # (Auto) 0.0, Basophils # (Auto) 0.0 10/23/18 05:01 Red Blood Count 3.32 L, Mean Corpuscular Volume 96.1 H, Mean Corpuscular Hemoglobin 31.9, Mean Corpuscular Hemoglobin Concent 33.2, Red Cell Distribution Width 15.1 H, Calcium Level 7.4 L, Aspartate Amino Transf (AST/SGOT) 55 H, Alanine Aminotransferase (ALT/SGPT) 24, Alkaline Phosphatase 86, Total Bilirubin 1.6 H, Total Protein 5.3 L, Albumin 2.3 L 10/23/18 15:08 Allergies Coded Allergies: ceftriaxone (Verified Adverse Reaction, Intermediate, FEELS LIKE "PASSING OUT", 08/17/18) Home Medications No Active Prescriptions or Reported Meds MALINI JUARES MD Oct 23, 2018 18:31
[2018-10-23] MEDS: OCTREOTIDE ACETATE 1,200 MCG in NS 238.8 ML IV SCH (19:50)
[2018-10-24] VITALS (11 sets, daily range): BP systolic 93–140; BP diastolic 57–90
[2018-10-24] MEDS: LR 1,000 ML IV SCH ×7 (01:00→21:44)
[2018-10-24] MEDS: LORazepam 2 MG TAB PO PRN ×4 (03:41→18:15)
[2018-10-24] MEDS: PIPERACILLIN/TAZOBACTAM SOD 3.375 GM in D5W MINI-BAG PLUS 50 ML IV SCH ×4 (03:41→21:42)
[2018-10-24 05:07] LABS: BASO % 0.9 % (0.0-1.0); EOS # 0.1 10^3/uL (0.0-0.5); EOS % 2.3 % (0.0-3.0); HEMATOCRIT 31.5 % (42.0-52.0); HEMOGLOBIN 10.1 g/dl (13.5-17.5); LYMPH # 1.1 10^3/uL (1.5-5.0); LYMPH % 33.3 % (24.0-44.0); MEAN CORPUSCULAR HEMOGLOBIN 31.6 pg (27.0-33.0); MEAN CORPUSCULAR HGB CONC 32.1 g/dl (32.0-36.5); MEAN CORPUSCULAR VOLUME 98.4 fl (80.0-96.0); MONO # 0.2 10^3/uL (0.0-0.8); MONO % 6.1 % (0.0-5.0); NEUTROPHILS # 1.9 10^3/uL (1.5-8.5); NEUTROPHILS % 54.5 % (36.0-66.0); WHITE BLOOD COUNT 3.4 10^3/uL (4.0-10.0)
[2018-10-24 05:08] LABS: PLATELET COUNT, AUTOMATED 84 10^3/uL (150-450)
[2018-10-24 05:38] LABS: ALBUMIN 2.3 GM/DL (3.2-5.2); BILIRUBIN,TOTAL 1.2 MG/DL (0.2-1.0); CREATININE FOR GFR 1.83 MG/DL (0.70-1.30); MAGNESIUM LEVEL 1.3 MG/DL (1.8-2.4); POTASSIUM SERUM 3.3 MEQ/L (3.5-5.1); TOTAL PROTEIN 5.4 GM/DL (6.4-8.2)
[2018-10-24] MEDS ORDERED: FOLIC ACID 1 MG TAB PO SCH (09:00)
[2018-10-24] MEDS ORDERED: POTASSIUM CHLORIDE 10 MEQ SR TABLET PO ONE (09:00)
[2018-10-24] MEDS: PANTOPRAZOLE 40MG INJ (PROTONIX) (C9113) IV SCH ×2 (09:17→21:42)
[2018-10-24] MEDS: THIAMINE 100 MG TAB PO SCH ×2 (09:18→21:42)
[2018-10-24] MEDS: CYANOCOBALAMIN 500 MCG TAB PO SCH (09:18)
[2018-10-24] MEDS: FOLIC ACID 1 MG TAB PO SCH (09:18)
[2018-10-24] MEDS: MULTIVITAMINS/MINERALS THERAP 1 TAB PO SCH (09:18)
[2018-10-24] MEDS ORDERED: MAG SULF 1GM/100ML (MAG RUN) 1 GM in IV 1 EA IV ONE (10:00)
--- NOTE | 2018-10-24 19:38 | IPNPDOC ---
Text Note Date of Service The patient was seen on 10/24/18. NOTE Subjective: No complaints, sometimes confused and asks questions that are out of context. Anxious Reports no pain Objective: Exam: Vitals: as below General: Alert and oriented to self but not place and time, not in distress HEENT: Anicteric, thin with some bitemporal wasting Chest: CTAB CVS: S1, S2 heard, normal, no murmurs Abdomen: normoactive bowel sounds, non tender Extremities: no pedal edema, pulses palpable. 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 Moves all extremities. Tremulous, AOx1 with confusion about where he is and thinks its november. Skin: no rash, no spider nevi, palmar erythema or caput. Labs: reviewed. Imaging tests: 10/23/2018 CT abdomen: -showed mild focal inflammatory changes seen adjacent to the head of the pancreas. This requires clinical and laboratory evaluation for possible acute pancreatitis, extensive hepatic steatosis. Assessment: 58 years old man with alcohol use disorder w/ complicated withdrawals with DTs and alcoholic seizures and chronic thrombocytopenia who presented to the ED with weakness and syncope and found to have acute pancreatitis, acute kidney injury, anemia w/+FOBT, thrombocytopenia and volume depletion. Plan: 1. Hypotension secondary to volume depletion. I gave him a bolus of saline. We will start Lactated Ringer's 250 per hour. Bladder scan will be performed but I think he is not voiding because of lack of adequate hydration. Alcohol use disorder with complicated withdrawal history: -symptom driven [facility] protocol -Consider alcohol rehab, follow up social work consult -Thiamine , folic acid Anemia with +FOBT: GIB. Had a recent EGD without varices likely alcoholic gastritis - Pantoprazole 40 IV BID - Zosyn IV antibiotics for SBP prophylaxis - Continue octreotide drip for now until scope tomorrow Acute pancreatitis: -Tolerating diet without abdominal pain and having an appetite will continue a dvancing diet. However NPO at midnight for EGD/[place] -LR fluids Abnormal LFTs: Given his severe alcohol use history likely alcoholic liver disease vs hepatitis -monitor LFTs Syncope, probably from volume depletion. -CT of the head was negative for bleed. He has a past history of frontal lobe hematomas but none currently at present. Acute kidney injury: Prerenal 2/2 volume depletion -Lisinopril is on hold. -resolving with IV fluids Thrombocytopenia: Likely 2/2 alcoholic liver disease/cirrhosis, as well as marrow suppressive effects of alcohol affecting all lineages. -Monitor VS,Fishbone, I+O VS, Fishbone, I+O Laboratory Tests 10/24/18 04:48 Red Blood Count 3.20 L, Mean Corpuscular Volume 98.4 H, Mean Corpuscular Hemoglobin 31.6, Mean Corpuscular Hemoglobin Concent 32.1, Red Cell Distribution Width 15.7 H, Neutrophils (%) (Auto) 54.5, Lymphocytes (%) (Auto) 33.3, Monocytes (%) (Auto) 6.1 H, Eosinophils (%) (Auto) 2.3, Basophils (%) (Auto) 0.9, Neutrophils # (Auto) 1.9, Lymphocytes # (Auto) 1.1 L, Monocytes # (Auto) 0.2, Eosinophils # (Auto) 0.1, Basophils # (Auto) 0.0, Calcium Level 8.0 L, Aspartate Amino Transf (AST/SGOT) 60 H, Alanine Aminotransferase (ALT/SGPT) 31, Alkaline Phosphatase 82, Total Bilirubin 1.2 H, Total Protein 5.4 L, Albumin 2.3 L Vital Signs Date Time Temp Pulse Resp B/P (MAP) Pulse Ox O2 Delivery O2 Flow Rate FiO2 10/24/18 18:00 87 140/57 10/24/18 16:00 97.6 18 98 10/22/18 23:18 Room Air I&O- Last 24 Hours up to 6 AM 10/24/18 06:00 Intake Total 6040 ml Output Total 1475 ml Balance 4565 ml GARETH CASTLE MD Oct 24, 2018 19:38
[2018-10-24] MEDS: OCTREOTIDE ACETATE 1,200 MCG in NS 238.8 ML IV SCH (21:42)
[2018-10-25] VITALS (8 sets, daily range): BP systolic 108–152; BP diastolic 72–92
[2018-10-25] MEDS: LR 1,000 ML IV SCH ×6 (00:28→22:05)
[2018-10-25] MEDS: PIPERACILLIN/TAZOBACTAM SOD 3.375 GM in D5W MINI-BAG PLUS 50 ML IV SCH ×4 (04:12→22:06)
[2018-10-25 05:37] LABS: BASO % 0.4 % (0.0-1.0); EOS # 0.1 10^3/uL (0.0-0.5); HEMATOCRIT 29.5 % (42.0-52.0); HEMOGLOBIN 9.7 g/dl (13.5-17.5); LYMPH # 0.5 10^3/uL (1.5-5.0); LYMPH % 19.8 % (24.0-44.0); MEAN CORPUSCULAR HEMOGLOBIN 31.8 pg (27.0-33.0); MEAN CORPUSCULAR HGB CONC 32.9 g/dl (32.0-36.5); MEAN CORPUSCULAR VOLUME 96.7 fl (80.0-96.0); MONO # 0.1 10^3/uL (0.0-0.8); MONO % 5.1 % (0.0-5.0); NEUTROPHILS # 1.7 10^3/uL (1.5-8.5); RED BLOOD COUNT 3.05 10^6/uL (4.30-6.10); WHITE BLOOD COUNT 2.5 10^3/uL (4.0-10.0)
[2018-10-25 05:38] LABS: PLATELET COUNT, AUTOMATED 79 10^3/uL (150-450)
[2018-10-25 05:58] LABS: ALBUMIN 2.1 GM/DL (3.2-5.2); ALT/SGPT 33 U/L (12-78); BLOOD UREA NITROGEN 26 MG/DL (7-18); CALCIUM LEVEL 8.3 MG/DL (8.5-10.1); CARBON DIOXIDE LEVEL 27 MEQ/L (21-32); CHLORIDE LEVEL 114 MEQ/L (98-107); CREATININE FOR GFR 1.31 MG/DL (0.70-1.30); GLOMERULAR FILTRATION RATE > 60.0 (>56); GLUCOSE, FASTING 108 MG/DL (70-100); POTASSIUM SERUM 3.4 MEQ/L (3.5-5.1); SODIUM LEVEL 148 MEQ/L (136-145); TOTAL PROTEIN 4.8 GM/DL (6.4-8.2)
[2018-10-25] MEDS ORDERED: POTASSIUM CHLORIDE 10 MEQ SR TABLET PO ONE (08:00)
[2018-10-25 08:27] LABS: MAGNESIUM LEVEL 1.2 MG/DL (1.8-2.4)
[2018-10-25] MEDS: MULTIVITAMINS/MINERALS THERAP 1 TAB PO SCH (09:08)
[2018-10-25] MEDS: THIAMINE 100 MG TAB PO SCH (09:08)
[2018-10-25] MEDS: PANTOPRAZOLE 40MG INJ (PROTONIX) (C9113) IV SCH ×2 (09:08→22:05)
[2018-10-25] MEDS: CYANOCOBALAMIN 500 MCG TAB PO SCH (09:09)
[2018-10-25] MEDS: FOLIC ACID 1 MG TAB PO SCH (09:09)
[2018-10-25] MEDS ORDERED: MAG SULF 1GM/100ML (MAG RUN) 1 GM in IV 1 EA IV ONE (18:15)
[2018-10-25] MEDS: LORazepam 2 MG TAB PO PRN (19:09)
[2018-10-25 19:49] LABS: ALT/SGPT 37 U/L (12-78); BILIRUBIN,TOTAL 1.1 MG/DL (0.2-1.0); BLOOD UREA NITROGEN 20 MG/DL (7-18); CALCIUM LEVEL 7.9 MG/DL (8.5-10.1); CARBON DIOXIDE LEVEL 29 MEQ/L (21-32); CHLORIDE LEVEL 113 MEQ/L (98-107); CREATININE FOR GFR 1.19 MG/DL (0.70-1.30); GLOMERULAR FILTRATION RATE > 60.0 (>56); GLUCOSE, FASTING 136 MG/DL (70-100); POTASSIUM SERUM 3.8 MEQ/L (3.5-5.1); SODIUM LEVEL 148 MEQ/L (136-145); TOTAL PROTEIN 4.4 GM/DL (6.4-8.2)
[2018-10-25] MEDS: THIAMINE HCL 200 MG/2 ML VIAL (J3411) IV SCH (22:05)
--- NOTE | 2018-10-25 23:24 | IPNPDOC ---
Text Note Date of Service The patient was seen on 10/25/18. NOTE Somnolent When he wakes, he is tremulous When spoken to, he answers but cannot answer questions coherently Had 49 beats of VT that broke without intervention, vitals remained he modynamically stable. Given Mag and checking BMP to replete lytes Objective: Vitals: as below General: Alert and oriented to self but not place and time, not in distress HEENT: Anicteric, thin with some bitemporal wasting Chest: CTAB CVS: S1, S2 heard, normal, no murmurs Abdomen: normoactive bowel sounds, non tender Extremities: no pedal edema, pulses palpable. 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 Moves all extremities. Tremulous, AOx1 and not asnwering questions. He attempts to but then stops Skin: no rash, no spider nevi, palmar erythema or caput. Labs: reviewed. Imaging tests: 10/23/2018 CT abdomen: -showed mild focal inflammatory changes seen adjacent to the head of the pancreas. This requires clinical and laboratory evaluation for possible acute p ancreatitis, extensive hepatic steatosis. Assessment: 58 years old man with alcohol use disorder w/ complicated withdrawals with DTs and alcoholic seizures and chronic thrombocytopenia who presented to the ED with weakness and syncope and found to have acute pancreatitis, acute kidney injury, anemia w/+FOBT, thrombocytopenia and volume depletion. Plan: 1. Hypotension secondary to volume depletion. -resolved after fluids -Switching from LR @ 250cc/hr to D51/2NS @ 125cc/hr for 1L. To reassess at the time with BMP about Na level and choice of fluids. Alcohol use disorder with complicated withdrawal history: -symptom driven [facility] protocol -Consider alcohol rehab, follow up social work consult -Thiamine , folic acid -had episodes of VT that resolved spontaneously, monitor for arrhythmias and dysautonomia Anemia with +FOBT: GIB. Had a recent EGD without varices likely alcoholic gastritis - Pantoprazole 40 IV BID - Zosyn IV antibiotics for prophylaxis Acute pancreatitis: -NPO for somnolence, nursing bedside swallow when he is awake -D51/2NS fluids Abnormal LFTs: Given his severe alcohol use history likely alcoholic liver disease vs hepatitis -monitor LFTs Syncope, probably from volume depletion. -CT of the head was negative for bleed. He has a past history of frontal lobe hematomas but none currently at present. Acute kidney injury: Prerenal 2/2 volume depletion -Lisinopril is on hold. -resolving with IV fluids Thrombocytopenia: Likely 2/2 alcoholic liver disease/cirrhosis, as well as marrow suppressive effects of alcohol affecting all lineages. -Monitor VS,Fishbone, I+O VS, Fishbone, I+O Laboratory Tests 10/25/18 05:21 Red Blood Count 3.05 L, Mean Corpuscular Volume 96.7 H, Mean Corpuscular Hemoglobin 31.8, Mean Corpuscular Hemoglobin Concent 32.9, Red Cell Distribution Width 15.3 H, Neutrophils (%) (Auto) 68.0 H, Lymphocytes (%) (Auto) 19.8 L, Monocytes (%) (Auto) 5.1 H, Eosinophils (%) (Auto) 2.0, Basophils (%) (Auto) 0.4, Neutrophils # (Auto) 1.7, Lymphocytes # (Auto) 0.5 L, Monocytes # (Auto) 0.1, Eosinophils # (Auto) 0.1, Basophils # (Auto) 0.0, Calcium Level 8.3 L, Aspartate Amino Transf (AST/SGOT) 53 H, Alanine Aminotransferase (ALT/SGPT) 33, Alkaline Phosphatase 81, Total Bilirubin 1.0, Total Protein 4.8 L, Albumin 2.1 L 10/25/18 19:13 Calcium Level 7.9 L, Aspartate Amino Transf (AST/SGOT) 54 H, Alanine Aminotransferase (ALT/SGPT) 37, Alkaline Phosphatase 85, Total Bilirubin 1.1 H, Total Protein 4.4 L, Albumin 2.0 L Vital Signs Date Time Temp Pulse Resp B/P (MAP) Pulse Ox O2 Delivery O2 Flow Rate FiO2 10/25/18 20:00 97.7 85 18 152/86 (108) 98 10/22/18 23:18 Room Air I&O- Last 24 Hours up to 6 AM 10/25/18 06:00 Intake Total 6840 ml Output Total 175 ml Balance 6665 ml GARETH CASTLE MD Oct 25, 2018 23:24
[2018-10-25] MEDS ORDERED: D5W/0.45% SODIUM CHLORIDE 1,000 ML IV SCH (23:30)
[2018-10-26] VITALS (8 sets, daily range): BP systolic 110–134; BP diastolic 54–99
[2018-10-26] MEDS: MAG SULF 1GM/100ML (MAG RUN) 1 GM in IV 1 EA IV SCH ×4 (03:32→09:19)
[2018-10-26] MEDS: PIPERACILLIN/TAZOBACTAM SOD 3.375 GM in D5W MINI-BAG PLUS 50 ML IV SCH (03:51)
[2018-10-26 05:42] LABS: BASO % 1.1 % (0.0-1.0); EOS % 2.2 % (0.0-3.0); HEMATOCRIT 29.8 % (42.0-52.0); HEMOGLOBIN 9.8 g/dl (13.5-17.5); LYMPH # 0.5 10^3/uL (1.5-5.0); LYMPH % 27.2 % (24.0-44.0); MEAN CORPUSCULAR HEMOGLOBIN 32.3 pg (27.0-33.0); MEAN CORPUSCULAR HGB CONC 32.9 g/dl (32.0-36.5); MEAN CORPUSCULAR VOLUME 98.3 fl (80.0-96.0); MONO # 0.2 10^3/uL (0.0-0.8); MONO % 12.8 % (0.0-5.0); NEUTROPHILS % 52.8 % (36.0-66.0); RED BLOOD COUNT 3.03 10^6/uL (4.30-6.10)
[2018-10-26 05:56] LABS: PLATELET COUNT, AUTOMATED 64 10^3/uL (150-450); WHITE BLOOD COUNT 1.8 10^3/uL (4.0-10.0)
[2018-10-26] MEDS: OCTREOTIDE ACETATE 1,200 MCG in NS 238.8 ML IV SCH (05:56)
[2018-10-26 06:02] LABS: ALBUMIN 1.8 GM/DL (3.2-5.2); ALT/SGPT 39 U/L (12-78); BLOOD UREA NITROGEN 16 MG/DL (7-18); CARBON DIOXIDE LEVEL 31 MEQ/L (21-32); CHLORIDE LEVEL 111 MEQ/L (98-107); CREATININE FOR GFR 1.18 MG/DL (0.70-1.30); GLOMERULAR FILTRATION RATE > 60.0 (>56); GLUCOSE, FASTING 161 MG/DL (70-100); MAGNESIUM LEVEL 1.5 MG/DL (1.8-2.4); POTASSIUM SERUM 3.8 MEQ/L (3.5-5.1); SODIUM LEVEL 147 MEQ/L (136-145); TOTAL PROTEIN 4.5 GM/DL (6.4-8.2)
[2018-10-26] MEDS: PANTOPRAZOLE 40MG INJ (PROTONIX) (C9113) IV SCH ×2 (08:15→21:29)
[2018-10-26] MEDS: FOLIC ACID 1 MG TAB PO SCH (08:16)
[2018-10-26] MEDS: THIAMINE HCL 200 MG/2 ML VIAL (J3411) IV SCH ×2 (08:16→21:29)
[2018-10-26] MEDS: MULTIVITAMINS/MINERALS THERAP 1 TAB PO SCH (08:16)
[2018-10-26] MEDS: CYANOCOBALAMIN 500 MCG TAB PO SCH (08:16)
[2018-10-26] MEDS ORDERED: GLUCAGON FOR INJ 1 MG VIAL (J1610) SC PRN (08:45)
[2018-10-26] MEDS: D5W/0.45% SODIUM CHLORIDE 1,000 ML IV SCH ×2 (08:45→21:30)
[2018-10-26] MEDS ORDERED: GLUCOSE 4 GM CHEW TABLET PO PRN (08:45)
[2018-10-26] MEDS ORDERED: DEXTROSE 50% 50 ML SYRINGE IV PRN (08:45)
[2018-10-26] MEDS ORDERED: LORazepam 2 MG TAB PO PRN (09:00)
[2018-10-26 09:10] LABS: ABG HCO3 28.6 MEQ/L (22.0-26.0); ABG O2 SATURATION 98.4 % (95.0-99.0); ABG TOTAL CO2 29.7 MEQ/L (22.0-29.0); ABG pH (ARTERIAL) 7.494 UNITS (7.350-7.450)
[2018-10-26] MEDS: CIPROFLOXACIN 400 MG in IV 1 EA IV SCH ×2 (09:19→22:17)
--- NOTE | 2018-10-26 13:17 | ECHO ---
DATE OF STUDY: 10/26/2018 REFERRING PHYSICIAN: Dr. Alondra Hyde INDICATION: Cardiac dysrhythmias unspecified, abnormal ECG. HEIGHT: 173 cm. WEIGHT: 82 kg. 2D MEASUREMENTS: Aortic root 3.7 cm Left atrium 2.7 cm Ventricular septum 1.19 cm Posterior wall 1.19 cm Left ventricle diastole 3.6 cm Aortic annulus 2.3 cm DOPPLER MEASUREMENTS: Trace aortic regurgitation. No aortic stenosis. Aortic valve velocity 74.4 cm/s LVOT velocity 43.3 cm/s Trace mitral regurgitation. Mitral E velocity 32.6 cm/s Mitral A velocity 49.4 cm/s Very mild tricuspid regurgitation. No pulmonic regurgitation. Pulmonary artery systolic pressure 33 mmHg by pulmonary acceleration time method. MITRAL ANNULAR TISSUE DOPPLER: E prime septal 5.1 cm/s E prime lateral 6.5 cm/s DESCRIPTION: Rhythm was sinus. Image quality was fair. Technically difficult for subcostal views. No pericardial effusion. This was a 2D, M mode, color flow Doppler and pulse wave Doppler examination and included mitral annular tissue Doppler. CONCLUSIONS: 1. Normal left ventricle internal dimensions and wall thickness. Normal regional LV wall motion and wall thickening. LVEF 70% by visual estimate. Grade 1 LV diastolic dysfunction. Normal left atrial size. 2. Mild aortic valve sclerosis of a three-cuspid aortic valve. Trace aortic regurgitation. 3. Normal right ventricle size and systolic function. Suggestive of very mild elevation of pulmonary artery systolic pressure. 4. Otherwise normal appearing echocardiogram Doppler findings.
--- NOTE | 2018-10-26 13:35 | IPN ---
DATE OF SERVICE: 10/26/2018 SUBJECTIVE: The patient continues to be confused and thinks it is 1870. He does not know where he is. He is trying to answer questions. He was afebrile overnight. No complaints of pain. Ammonia level is normal at 28 with arterial blood gas, which has normal CO2 level. The patient is not fully following commands. He does have some purposeful movements. He does open his eyes but has a resting tremor and asterixis. He is currently on Clinical [place] Withdrawal Assessment (CIWA) protocol. PHYSICAL EXAMINATION: Vital signs: Temperature 97.5, pulse 78, respiratory rate 20, blood pressure 114/80, 98% on room air. Generally, the patient is awake, alert, oriented to person only. He does have purposeful movement but does not fully follow commands. Appears lethargic. Anicteric sclerae. No jaundice. Pupils nonreactive. Unable to assess extraocular muscles as the patient is lethargic. No jugular venous distention. No thyromegaly. No cervical lymphadenopathy. Lungs are diminished but clear to auscultation. No wheezing, rales. Heart: S1, S2, sinus rhythm. Abdomen: Is soft, slightly tender in the left upper quadrant epigastric region without any rebound, guarding. Positive bowel sounds times four quadrants. No hepatosplenomegaly. Extremities: Positive edema bilateral hands and lower extremities. HOSPITAL MEDICATIONS: - ciprofloxacin- Ativan- D5 normal saline- hypoglycemic protocol- thiamine- vitamin B12- Protonix- folic acid- multivitamin- octreotide drip LABORATORY DATA: White count 1.8, hemoglobin 9.8, hematocrit 29, platelet count 64. Previous platelet count is 79. Sodium 147, potassium 3.8, chloride 111, bicarbonate 31, BUN 16, creatinine 1.18, glucose 161, magnesium of 1.5, calcium of 8, AST of 64, ALT of 39, ammonia 28, alkaline phosphatase 84, total protein 4.5, albumin of 1.8. ASSESSMENT AND PLAN: This is a 58-year-old male with history of chronic alcoholism, current episode of pancreatitis secondary to alcohol, alcohol- related seizure disorder, chronic thrombocytopenia, hypertension, was brought in by police due to unresponsiveness for a few minutes, complaining of chest tightness. CT showed mild inflammation of the pancreas. The patient was admitted for pancreatitis. 1. Gastritis. Currently still on octreotide drip, nothing by mouth status, and Protonix intravenous (IV) twice a day. [employer] has been consulted. No overt signs of bleeding. 2. Acute metabolic encephalopathy secondary to gastrointestinal (GI) bleed. No signs of hepatic encephalopathy. The patient's ammonia level is normal. He is currently on full supportive care with IV antibiotics with ciprofloxacin for now. Zosyn has been discontinued from admission. He is on [facility] protocol for alcohol withdrawal. He currently has ongoing tremors at the bedside and asterixis. 3. Alcoholic hallucinosis with mental status changes and encephalopathy. The patient is on full supportive care with [facility] protocol. Treatment is being given for gastritis with octreotide drip, Protonix, and ciprofloxacin for now. On thiamine and folic acid and multivitamin. Refer to gastroenterology for discontinuation of the octreotide. 4. Hypotension secondary to volume depletion. This is resolved. He is status post IV fluids, changed to 60 mL/h. 5. Acute pancreatitis. Remains nothing by mouth. On IV fluids, which have been decreased due to anasarca, most likely secondary to hypoalbuminemia and chronic liver disease. Physical therapy and swallow therapist has been consulted. 6. Chronic pancytopenia secondary to advanced liver disease. No acute indication for transfusion at this time. No recurrent signs of bleeding. 7. Acute kidney injury. The patient's lisinopril has been held. The patient has improved on IV fluids, currently with normal creatinine of 1.18. 8. Hypernatremia. Sodium level of 147. Changed to D5 half-normal saline. Repeat metabolic panel every 12 hours to monitor for sodium changes. MTDD
[2018-10-27] VITALS (8 sets, daily range): BP systolic 90–124; BP diastolic 62–96
[2018-10-27 05:23] LABS: BASO % 0.9 % (0.0-1.0); EOS # 0.1 10^3/uL (0.0-0.5); EOS % 3.6 % (0.0-3.0); HEMATOCRIT 28.2 % (42.0-52.0); HEMOGLOBIN 9.3 g/dl (13.5-17.5); LYMPH # 0.7 10^3/uL (1.5-5.0); LYMPH % 31.5 % (24.0-44.0); MEAN CORPUSCULAR HEMOGLOBIN 31.1 pg (27.0-33.0); MEAN CORPUSCULAR VOLUME 94.3 fl (80.0-96.0); MONO # 0.4 10^3/uL (0.0-0.8); MONO % 16.2 % (0.0-5.0); NEUTROPHILS % 44.2 % (36.0-66.0); RED BLOOD COUNT 2.99 10^6/uL (4.30-6.10); WHITE BLOOD COUNT 2.2 10^3/uL (4.0-10.0)
[2018-10-27 05:49] LABS: PLATELET COUNT, AUTOMATED 66 10^3/uL (150-450)
[2018-10-27] MEDS: OCTREOTIDE ACETATE 1,200 MCG in NS 238.8 ML IV SCH (05:50)
[2018-10-27 05:58] LABS: ALBUMIN 1.8 GM/DL (3.2-5.2); ALT/SGPT 41 U/L (12-78); BLOOD UREA NITROGEN 9 MG/DL (7-18); CALCIUM LEVEL 7.5 MG/DL (8.5-10.1); CARBON DIOXIDE LEVEL 32 MEQ/L (21-32); CHLORIDE LEVEL 105 MEQ/L (98-107); CREATININE FOR GFR 1.07 MG/DL (0.70-1.30); GLOMERULAR FILTRATION RATE > 60.0 (>56); GLUCOSE, FASTING 130 MG/DL (70-100); POTASSIUM SERUM 2.9 MEQ/L (3.5-5.1); SODIUM LEVEL 143 MEQ/L (136-145); TOTAL PROTEIN 4.5 GM/DL (6.4-8.2)
[2018-10-27] MEDS ORDERED: KCL 10MEQ/100ML SWI (KRUN) 10 MEQ in IV 1 EA IV SCH ×2 (06:00→09:00)
[2018-10-27] MEDS ORDERED: POTASSIUM CHLORIDE 10 MEQ SR TABLET PO ONE ×3 (06:15→20:30)
[2018-10-27] MEDS ORDERED: MAG SULF 1GM/100ML (MAG RUN) 1 GM in IV 1 EA IV ONE ×3 (06:15→21:45)
[2018-10-27] MEDS ORDERED: FUROSEMIDE 40 MG/4 ML VIAL (J1940) IV ONE (09:00)
[2018-10-27] MEDS ORDERED: KCL 10MEQ/100ML SWI (KRUN) 10 MEQ in IV 1 EA IV ONE (09:00)
[2018-10-27] MEDS: FOLIC ACID 1 MG TAB PO SCH (09:07)
[2018-10-27] MEDS: CYANOCOBALAMIN 500 MCG TAB PO SCH (09:07)
[2018-10-27] MEDS: MULTIVITAMINS/MINERALS THERAP 1 TAB PO SCH (09:07)
[2018-10-27] MEDS: PANTOPRAZOLE 40MG INJ (PROTONIX) (C9113) IV SCH ×2 (09:08→21:34)
[2018-10-27] MEDS: THIAMINE HCL 200 MG/2 ML VIAL (J3411) IV SCH ×2 (09:08→21:35)
--- NOTE | 2018-10-27 09:50 | IPN ---
DATE OF SERVICE: 10/27/2018 SUBJECTIVE: The patient denies dysuria, urgency, frequency, nausea, vomiting, abdominal pain, fever or chills. Continues to be confused, but much more awake. Evaluated by swallow therapy with recommendation for a pureed diet. The patient was agreeable to sit on a chair today and ambulate more from bed to chair with some assistance. He says that he can push the red nurses call button in case he needed some help. The patient pulled his IV line yesterday due to confusion. OBJECTIVE/PHYSICAL EXAMINATION: Vital Signs: Temperature 96.9, pulse 82, respiratory rate 20, blood pressure 124/96, 99% on room air. Generally, the patient is awake, alert, oriented to himself only. He is pleasantly confused. He does not know where he is and says that he is in [place]. He has no respiratory distress. Continuous baseline asterixis. He is following more commands today. No jaundice. No icterus. Pupils nonreactive. Lungs are diminished with coarse breath sounds. Heart: S1 and S2, sinus rhythm. Abdomen: Soft, nontender, nondistended. Positive bowel sounds times four quadrants. No rebound or guarding. No hepatosplenomegaly. Extremities: Some persistent edema bilateral upper and lower extremities. HOSPITAL MEDICATIONS: - potassium - ciprofloxacin - Ativan - octreotide drip - hypoglycemic protocol - thiamine - vitamin B12 - Protonix - folic acid - multivitamin - octreotide drip LABORATORY DATA: White count 2.3, hemoglobin9.3, hematocrit 28, platelet count 66. Sodium 143, potassium 2.9, chloride 105, bicarbonate 32, BUN 9, creatinine 1.07, glucose 130. AST 56. Total bilirubin 1. Albumin 1.8. INPUT AND OUTPUT: 875 input and output not documented. CT OF ABDOMEN AND PELVIS: On 10/22/2018 with pancreatitis, hepatic steatosis, large hydrocele right hemiscrotum as seen on prior exam. ECHOCARDIOGRAM: Normal echo. Ejection fraction (EF) of 70%. Grade 1 diastolic dysfunction. ASSESSMENT AND PLAN: 58-year-old male with chronic alcohol abuse, alcoholism, alcohol related pancreatitis, seizure disorder, thrombocytopenia, pancytopenia, hypertension, who was brought in by police due to unresponsiveness with complaints of chest tightness. CT of chest showed pancreatitis. 1. Gastritis. No overt signs of bleeding. On octreotide drip, proton pump inhibitor (PPI) and soft diet. 2. Acute metabolic encephalopathy secondary to gastrointestinal (GI) bleed with no signs of hepatic encephalopathy. Ammonia level is normal. Currently on IV Cipro, previously on Zosyn, and CIWA protocol. Urinalysis was negative. Chest x-ray was negative. 3. Chronic pancytopenia secondary to advanced liver disease. No indication for any transfusion. No recurrent signs of bleeding. 4. Acute kidney injury. Lisinopril has been held. Improved on IV fluids. 5. Hypervolemia with positive edema. One dose of Lasix today. 6. Hypernatremia, most likely due to IV fluids. 7. Acute pancreatitis. Liver function tests are normal. Restarted back on pureed diet and regular liquids. 8. Physical therapy (PT) consulted. PAPID
[2018-10-27] MEDS: CIPROFLOXACIN 400 MG in IV 1 EA IV SCH ×2 (10:17→21:35)
--- NOTE | 2018-10-27 12:41 | REPVR ---
PROCEDURE INFORMATION: Exam: CT Head Without Contrast EXAM DATE/TIME: 10/27/2018 11:46 AM Exam date and time: 10/27/2018 11:46 AM Clinical history: 58 years old, male; Pain; Headache; Additional info: AMS TECHNIQUE: Imaging protocol: Computed tomography of the head without contrast. Radiation optimization: All CT scans at this facility use at least one of these dose optimization techniques: automated exposure control; mA and/or kV adjustment per patient size (includes targeted exams where dose is matched to clinical indication); or iterative reconstruction. COMPARISON: CT Head without contrast 10/22/2018 6:57 PM FINDINGS: Brain: Stable frontal and temporal lobe encephalomalacia and small vessel ischemic change. Symmetric prominence of cortical and cerebellar sulci. No acute cortical infarct or intracranial hemorrhage. Ventricles: Stable ventriculomegaly. Bones/joints: No acute calvarial pathology. Sinuses: Low-grade maxillary sinus mucoperiosteal disease. Mastoid air cells: No mastoid effusion. Soft tissues: Unremarkable soft tissues. When correlating with the previous study, no significant interval changes are present. IMPRESSION: Stable appearance of the brain, not significantly changed from 10/22/2018 . Electronically signed by: Drake Lomeli On 10/27/2018 12:41:18 PM
[2018-10-27 13:03] LABS: MAGNESIUM LEVEL 1.7 MG/DL (1.8-2.4); POTASSIUM SERUM 3.6 MEQ/L (3.5-5.1)
[2018-10-27] MEDS ORDERED: NS 1,000 ML IV ONE ×2 (15:00→15:45)
--- NOTE | 2018-10-27 16:17 | REP ---
KUB ABDOMEN AND PELVIS: KUB film of abdomen and pelvis is performed. Multiple mildly dilated small bowel loops are seen in the mid abdomen. Mild scattered air and fecal material are seen in the colon. No obvious free intraperitoneal air is seen, but for plain film evaluation for free intraperitoneal air, I would recommend either an upright or crosstable lateral view of the abdomen. Electronically Signed by Albin Rosa MD 10/28/2018 04:58 P
[2018-10-27] MEDS: metroNIDAZOLE 500 MG in IV 1 EA IV SCH (17:30)
[2018-10-27 19:38] LABS: MAGNESIUM LEVEL 1.6 MG/DL (1.8-2.4); POTASSIUM SERUM 3.2 MEQ/L (3.5-5.1)
[2018-10-28] VITALS (7 sets, daily range): BP systolic 96–110; BP diastolic 71–75
[2018-10-28] MEDS: metroNIDAZOLE 500 MG in IV 1 EA IV SCH ×4 (01:43→23:28)
[2018-10-28 05:51] LABS: BASO % 0.8 % (0.0-1.0); EOS # 0.1 10^3/uL (0.0-0.5); EOS % 2.7 % (0.0-3.0); HEMATOCRIT 30.2 % (42.0-52.0); HEMOGLOBIN 10.1 g/dl (13.5-17.5); LYMPH # 0.8 10^3/uL (1.5-5.0); LYMPH % 31.4 % (24.0-44.0); MEAN CORPUSCULAR HGB CONC 33.4 g/dl (32.0-36.5); MEAN CORPUSCULAR VOLUME 95.6 fl (80.0-96.0); MONO # 0.4 10^3/uL (0.0-0.8); MONO % 14.1 % (0.0-5.0); NEUTROPHILS # 1.2 10^3/uL (1.5-8.5); NEUTROPHILS % 48.3 % (36.0-66.0); RED BLOOD COUNT 3.16 10^6/uL (4.30-6.10); WHITE BLOOD COUNT 2.6 10^3/uL (4.0-10.0)
[2018-10-28 05:52] LABS: PLATELET COUNT, AUTOMATED 83 10^3/uL (150-450)
[2018-10-28] MEDS: OCTREOTIDE ACETATE 1,200 MCG in NS 238.8 ML IV SCH (06:12)
[2018-10-28 06:24] LABS: ALBUMIN 1.9 GM/DL (3.2-5.2); ALT/SGPT 48 U/L (12-78); BILIRUBIN,TOTAL 0.7 MG/DL (0.2-1.0); BLOOD UREA NITROGEN 5 MG/DL (7-18); CALCIUM LEVEL 7.6 MG/DL (8.5-10.1); CARBON DIOXIDE LEVEL 29 MEQ/L (21-32); CHLORIDE LEVEL 108 MEQ/L (98-107); CREATININE FOR GFR 0.85 MG/DL (0.70-1.30); GLOMERULAR FILTRATION RATE > 60.0 (>56); GLUCOSE, FASTING 108 MG/DL (70-100); MAGNESIUM LEVEL 1.5 MG/DL (1.8-2.4); SODIUM LEVEL 143 MEQ/L (136-145); TOTAL PROTEIN 4.7 GM/DL (6.4-8.2)
[2018-10-28] MEDS ORDERED: MAG SULF 1GM/100ML (MAG RUN) 1 GM in IV 1 EA IV ONE ×2 (07:00→09:00)
[2018-10-28] MEDS ORDERED: NS 1,000 ML IV SCH (08:45)
[2018-10-28] MEDS: POTASSIUM CHLORIDE 10 MEQ SR TABLET PO SCH (09:04)
[2018-10-28] MEDS: CYANOCOBALAMIN 500 MCG TAB PO SCH (09:04)
[2018-10-28] MEDS: FOLIC ACID 1 MG TAB PO SCH (09:04)
[2018-10-28] MEDS: MULTIVITAMINS/MINERALS THERAP 1 TAB PO SCH (09:04)
[2018-10-28] MEDS: PANTOPRAZOLE 40MG INJ (PROTONIX) (C9113) IV SCH ×2 (09:05→20:36)
[2018-10-28] MEDS: MAGNESIUM OXIDE 400 MG TAB (MAG-OX) PO SCH ×2 (09:05→20:36)
[2018-10-28] MEDS: THIAMINE HCL 200 MG/2 ML VIAL (J3411) IV SCH ×2 (09:05→20:39)
[2018-10-28] MEDS: CIPROFLOXACIN 400 MG in IV 1 EA IV SCH ×2 (12:31→22:19)
[2018-10-28] MEDS: TRIAMCINOLONE ACET 0.1% OINTMENT 80 GM TOP SCH ×2 (15:31→20:39)
[2018-10-28] MEDS: LR 1,000 ML IV SCH ×3 (15:31→23:30)
--- NOTE | 2018-10-28 15:33 | IPN ---
DATE OF SERVICE: 10/28/2018 SUBJECTIVE: Patient had hypotension yesterday requiring intravenous (IV) fluid hydration. Systolic pressure was 90/62. Responded well to IV fluids with urine output not documented due to incontinence. Patient is tolerating his diet. Abdominal film shows no free air. He currently complains still of right upper quadrant abdominal pain "as if he got hit in the belly." Patient is much more awake and alert but remains disoriented. Lactic acid improved from 3.7 on admission to 2.1 today. He is currently on Flagyl and ciprofloxacin. He continues to have severe weakness, is leaning on the right side and a repeat CT of the brain is unchanged from previous admission CT of the head. OBJECTIVE/PHYSICAL EXAMINATION: Vital Signs: Temperature 96.4, pulse 75, respiratory rate 20, blood pressure 96/71, 98% on room air. Generally, patient is awake, alert to his name. Patient has no respiratory distress. No use of respiratory accessory muscles. No conversational dyspnea. No jugular venous distention (JVD). No icterus or jaundice. Pupils are round and reactive. Lungs are diminished with transmitted coarse breath sounds, coarse rhonchi. Heart: S1, S2, sinus rhythm. Abdomen is soft, tender in the right upper quadrant. No rebound or guarding. Positive bowel sounds in four quadrants. No hepatosplenomegaly. Extremities: Persistent edema bilateral upper and lower extremities. Skin: Patient has red erythematous coleman on her skin, appears as patches, dry and pruritic, nonindurated on bilateral upper extremities and chest. HOSPITAL MEDICATIONS: - potassium- magnesium oxide- triamcinolone acetonide Flagyl - Cipro Ativan hypoglycemic protocol- thiamine- vitamin B12 - Protonix folic acid- multivitamin octreotide drip LABORATORY DATA: White count 2.6, hemoglobin 10, hematocrit 30, platelet count of 83. Sodium 143, potassium 4, chloride of 108, bicarbonate 29, BUN 5, creatinine 0.85, glucose of 108, lactic acid of 2.1, previous lactic acid of 3.4 yesterday. IMAGING STUDIES: KUB 10/27/2018 multiple dilated small bowel loops in the mid abdomen. Mild scattered air and fecal material. Mild degree intraperitoneal air. CT of the head 10/27/2018 stable appearance. No change from 10/22/2018. ASSESSMENT AND PLAN: This is a 58-year-old with grade 1 diastolic dysfunction, ejection fraction (EF) of 70%, chronic alcoholic with alcohol induced liver disease, pancytopenia secondary to liver disease was brought in by police due to unresponsiveness and complaints of chest tightness. CT of chest showed pancreatitis. IMPRESSION: 1. Pancreatitis/gastritris. Patient had been on a octreotide drip, which has been discontinued. Currently on proton pump inhibitor (PPI) and soft diet which he is tolerating well. due to persistent lactic acidosis and hypotension, will obtain CT abd to rule out necrosis, pseudocyst as pt may need broader spectrum abx. 2. Acute encephalopathy secondary to gastrointestinal (GI) bleed with no signs of hepatic encephalopathy. Ammonia level is normal. Currently on IV Cipro and Flagyl. Previously on Zosyn. Initial urinalysis was negative. Chest x-ray was negative. 3. Persistent hypotension with lactic acidosis. Currently on IV antibiotics with Cipro, Flagyl, IV fluids. Lactic acid is improving. Abdominal film is negative. Will check blood culture and check urinalysis (UA). 4. Chronic pancytopenia secondary to advanced liver disease. No signs of bleeding. No acute indication for blood transfusion. 5. Acute kidney injury, resolved. Due to low blood pressure, patient's blood pressure medication Lisinopril has been discontinued. Improved on IV fluids. 6. Positive edema. Currently with low blood pressure unable to diurese. 7. Hypoalbuminemia secondary to poor nutrition. 8. Gait ataxia. Most likely secondary to chronic alcoholic liver disease with possible subacute combined degeneration of the cord. Will check methylmalonic acid, homocystine and B12. 9. Pancreatitis. Currently restarted back on diet and patient is tolerating pureed diet well. Has been advanced to mechanical soft diet level 2 with supervision only. DISPOSITION: Physical therapy has been consulted. Patient is medically stable for transfer to medical-surgical floor. [facility]
[2018-10-28] MEDS ORDERED: ISOVUE-370 76% 100ML VIAL (Q9967) As Ordered ONE (17:02)
--- NOTE | 2018-10-28 18:48 | REPVR ---
PROCEDURE INFORMATION: Exam: CT Abdomen and Pelvis With Contrast Exam date and time: 10/28/2018 5:21 PM Clinical history: 58 years old, male; Abnormal findings; Abnormal lab test; Other: Lactic acid; Additional info: Hypotension pancreatitis lactic acidosis R/O necrosis TECHNIQUE: Imaging protocol: Computed tomography of the abdomen and pelvis with intravenous contrast. Radiation optimization: All CT scans at this facility use at least one of these dose optimization techniques: automated exposure control; mA and/or kV adjustment per patient size (includes targeted exams where dose is matched to clinical indication); or iterative reconstruction. Contrast material: ISOVUE 370; Contrast volume: 100 ml; Contrast route: IV; COMPARISON: CT ABD PELVIS W/O CONTRAST 10/22/2018 7:00 PM FINDINGS: Pleural space: There are small bilateral pleural effusions and bibasilar compressive atelectasis. Liver: There is marked diffuse decrease in hepatic parenchymal density, consistent with fatty infiltration. Hepatomegaly. Gallbladder and bile ducts: Normal. No calcified stones. No ductal dilation. Pancreas: There is marked pancreatic atrophy. Spleen: Normal. No splenomegaly. Adrenals: Normal. No mass. Kidneys and ureters: Normal. No hydronephrosis. Stomach and bowel: Unremarkable. No obstruction. No mucosal thickening. Appendix: No evidence of appendicitis. Intraperitoneal space: Unremarkable. No free air. No significant fluid collection. Vasculature: Unremarkable. No abdominal aortic aneurysm. Lymph nodes: Unremarkable. No enlarged lymph nodes. Bladder: Unremarkable as visualized. Reproductive: Unremarkable as visualized. Bones/joints: Unremarkable. No acute fracture. Soft tissues: Small umbilical hernia. Small bilateral inguinal hernias. There is soft tissue edema demonstrated in the flanks and buttock regions consistent with anasarca. IMPRESSION: 1. There is marked diffuse decrease in hepatic parenchymal density, consistent with fatty infiltration. Hepatomegaly. 2. There is marked pancreatic atrophy. 3. Anasarca. Electronically signed by: Keven Falk On 10/28/2018 18:48:24 PM
[2018-10-28] MEDS ORDERED: NS 1,000 ML IV ONE (20:30)
[2018-10-29] VITALS (10 sets, daily range): BP systolic 110–122; BP diastolic 64–81
[2018-10-29] MEDS: LR 1,000 ML IV SCH ×3 (04:05→13:02)
[2018-10-29] MEDS: THIAMINE HCL 200 MG/2 ML VIAL (J3411) IV SCH ×2 (08:01→20:51)
[2018-10-29] MEDS: PANTOPRAZOLE 40MG INJ (PROTONIX) (C9113) IV SCH ×2 (08:02→20:51)
[2018-10-29] MEDS: metroNIDAZOLE 500 MG in IV 1 EA IV SCH ×2 (08:02→16:12)
[2018-10-29] MEDS: FOLIC ACID 1 MG TAB PO SCH (08:05)
[2018-10-29] MEDS: TRIAMCINOLONE ACET 0.1% OINTMENT 80 GM TOP SCH ×2 (08:05→20:52)
[2018-10-29] MEDS: POTASSIUM CHLORIDE 10 MEQ SR TABLET PO SCH (08:05)
[2018-10-29] MEDS: CYANOCOBALAMIN 500 MCG TAB PO SCH (08:05)
[2018-10-29] MEDS: MULTIVITAMINS/MINERALS THERAP 1 TAB PO SCH (08:06)
[2018-10-29] MEDS: MAGNESIUM OXIDE 400 MG TAB (MAG-OX) PO SCH ×2 (08:06→20:50)
[2018-10-29 08:18] LABS: BASO % 0.8 % (0.0-1.0); EOS # 0.1 10^3/uL (0.0-0.5); EOS % 2.5 % (0.0-3.0); HEMATOCRIT 32.1 % (42.0-52.0); HEMOGLOBIN 10.5 g/dl (13.5-17.5); LYMPH # 0.7 10^3/uL (1.5-5.0); LYMPH % 30.3 % (24.0-44.0); MEAN CORPUSCULAR HGB CONC 32.7 g/dl (32.0-36.5); MEAN CORPUSCULAR VOLUME 97.9 fl (80.0-96.0); MONO # 0.2 10^3/uL (0.0-0.8); MONO % 10.1 % (0.0-5.0); NEUTROPHILS # 1.3 10^3/uL (1.5-8.5); NEUTROPHILS % 54.2 % (36.0-66.0); RED BLOOD COUNT 3.28 10^6/uL (4.30-6.10); WHITE BLOOD COUNT 2.4 10^3/uL (4.0-10.0)
[2018-10-29 08:19] LABS: HEMATOCRIT 32.1 % (42.0-52.0); PLATELET COUNT, AUTOMATED 46 10^3/uL (150-450)
[2018-10-29 08:45] LABS: ALBUMIN 2.4 GM/DL (3.2-5.2); ALT/SGPT 55 U/L (12-78); BILIRUBIN,TOTAL 0.8 MG/DL (0.2-1.0); BLOOD UREA NITROGEN 3 MG/DL (7-18); CALCIUM LEVEL 8.1 MG/DL (8.5-10.1); CARBON DIOXIDE LEVEL 26 MEQ/L (21-32); CHLORIDE LEVEL 105 MEQ/L (98-107); GLOMERULAR FILTRATION RATE > 60.0 (>56); GLUCOSE, FASTING 97 MG/DL (70-100); POTASSIUM SERUM 4.3 MEQ/L (3.5-5.1); SODIUM LEVEL 141 MEQ/L (136-145); TOTAL PROTEIN 5.1 GM/DL (6.4-8.2)
[2018-10-29 09:41] LABS: VITAMIN B12 LEVEL 975 PG/ML (247-911)
[2018-10-29] MEDS: CIPROFLOXACIN 400 MG in IV 1 EA IV SCH ×2 (09:46→23:20)
--- NOTE | 2018-10-29 14:49 | IPN ---
DATE: 10/29/2018 SUBJECTIVE: Patient says that he is feeling better. He continues to complain of right upper quadrant abdominal discomfort, feeling like a football was thrown at him. He currently denies any nausea or vomiting. No abdominal distention. There is no diarrhea. OBJECTIVE: PHYSICAL EXAMINATION: VITAL SIGNS: Temperature 98.6, pulse 83, respiratory rate 18, blood pressure 113/80, 98% on room air. GENERAL: The patient is much more awake and alert today. He is oriented. He is able to say his name and answers questions appropriately. Pupils are round and reactive. Extraocular muscles are intact. No jugular venous distention (JVD). No thyromegaly. Anicteric. No jaundice. Moist mucous membranes. LUNGS: Diminished with fine crackles at the bases. HEART: S1, S2. Sinus rhythm. No murmurs, rubs or gallops. ABDOMEN: Soft. Tender in the right upper quadrant. No rebound or guarding. No costovertebral angle tenderness. Positive fluid wave in the lower quadrants bilaterally. EXTREMITIES: Both upper and lower extremities have positive pitting edema. HOSPITAL MEDICATIONS: - ciprofloxacin - Flagyl - lactated Ringers - potassium - magnesium - Kenalog cream - hypoglycemic protocol - thiamine - CIWA protocol - B12 - Protonix - folic acid - multivitamin LABORATORY DATA: White count is 2.4, hemoglobin 10, hematocrit 32, platelet count 46. Sodium 141, potassium 4.3, chloride 105, bicarbonate 26, BUN 3, creatinine 0.9, glucose of 97, lactic acid of 3.2, calcium 8.1, albumin 2.4. Blood culture pending. CT of the abdomen and pelvis on 10/28/2018 shows anasarca, diffuse decrease in hepatic parenchymal density consistent with fatty infiltration, hepatomegaly, marked pancreatic atrophy. ASSESSMENT AND PLAN: This is a 58-year-old chronic alcoholic with recurrent admissions for alcoholic related pancreatitis, brought in by police with confusion, complained of chest tightness. The patient has a known history of grade 1 diastolic dysfunction, ejection fraction of 70%, pancytopenia due to liver disease, fatty liver. CT showed pancreatitis. ACUTE ISSUES: 1. Pancreatitis/gastritis. The patient is status post octreotide drip, proton pump inhibitor. He has tolerated his diet well and has been pureed diet initially and currently advanced to mechanical soft level II with thin liquids, always with supervision to prevent aspiration risk. The patient underwent repeat CT of the abdomen due to persistent lactic acidosis and hypotension requiring intravenous fluid hydration. CT of the abdomen is unchanged with fatty liver and atrophy of the pancreas with no necrosis, pseudocyst or abscess. 2. Acute encephalopathy secondary to gastrointestinal bleed with no signs of elevated ammonia levels. The patient has pancreatitis and improving slowly. He is on seizure precautions for alcohol withdrawal. Ammonia level is normal. Currently on IV Cipro and Flagyl, previously been on Zosyn. UA was negative. Chest x-ray was negative. 3. Persistent hypotension with lactic acidosis requiring IV fluid hydration. The patient currently has some anasarca due to net positive balance for the past few days for treatment of pancreatitis. At this time, the patient is tolerating his diet well. We will discontinue the patient's Ringers, monitor the patient's lactic acid of 4, may need to resume. We will continue with supportive care with intravenous Cipro, Flagyl. 4. Gait imbalance, rule out subacute degeneration of the cord secondary to chronic alcoholism and B12 deficiency. We will check methylmalonic acid, homocysteine and B12 levels. We will also obtain MRI of the brain. CT of the brain was negative, only showing encephalomalacia. 5. Abnormal CT of the brain with encephalomalacia. No new changes. No acute CVA. 6. Hyperalbuminemia due to chronic alcohol abuse. 7. Acute kidney injury, resolved. 8. Chronic pancytopenia secondary to advanced liver disease. No active signs of bleeding at this time. No acute indication for red blood cell, platelets transfusions. MTDD
[2018-10-30] VITALS (11 sets, daily range): BP systolic 101–127; BP diastolic 62–85
[2018-10-30] MEDS: metroNIDAZOLE 500 MG in IV 1 EA IV SCH ×4 (00:29→23:37)
[2018-10-30 06:48] LABS: BASO % 0.7 % (0.0-1.0); EOS # 0.1 10^3/uL (0.0-0.5); EOS % 3.2 % (0.0-3.0); HEMATOCRIT 29.7 % (42.0-52.0); HEMOGLOBIN 9.6 g/dl (13.5-17.5); LYMPH # 0.9 10^3/uL (1.5-5.0); LYMPH % 30.3 % (24.0-44.0); MEAN CORPUSCULAR HEMOGLOBIN 31.4 pg (27.0-33.0); MEAN CORPUSCULAR HGB CONC 32.3 g/dl (32.0-36.5); MEAN CORPUSCULAR VOLUME 97.1 fl (80.0-96.0); MONO # 0.4 10^3/uL (0.0-0.8); MONO % 12.3 % (0.0-5.0); NEUTROPHILS # 1.4 10^3/uL (1.5-8.5); NEUTROPHILS % 50.7 % (36.0-66.0); RED BLOOD COUNT 3.06 10^6/uL (4.30-6.10); WHITE BLOOD COUNT 2.8 10^3/uL (4.0-10.0)
[2018-10-30 06:57] LABS: PLATELET COUNT, AUTOMATED 146 10^3/uL (150-450)
[2018-10-30 07:12] LABS: ALBUMIN 2.2 GM/DL (3.2-5.2); ALT/SGPT 43 U/L (12-78); BILIRUBIN,TOTAL 0.8 MG/DL (0.2-1.0); BLOOD UREA NITROGEN 3 MG/DL (7-18); CARBON DIOXIDE LEVEL 26 MEQ/L (21-32); CHLORIDE LEVEL 106 MEQ/L (98-107); CREATININE FOR GFR 0.95 MG/DL (0.70-1.30); GLOMERULAR FILTRATION RATE > 60.0 (>56); GLUCOSE, FASTING 108 MG/DL (70-100); POTASSIUM SERUM 4.1 MEQ/L (3.5-5.1); SODIUM LEVEL 140 MEQ/L (136-145)
[2018-10-30] MEDS: THIAMINE HCL 200 MG/2 ML VIAL (J3411) IV SCH ×2 (08:35→22:11)
[2018-10-30] MEDS: PANTOPRAZOLE 40MG INJ (PROTONIX) (C9113) IV SCH ×2 (08:35→22:12)
[2018-10-30] MEDS: CYANOCOBALAMIN 500 MCG TAB PO SCH (08:35)
[2018-10-30] MEDS: MAGNESIUM OXIDE 400 MG TAB (MAG-OX) PO SCH ×2 (08:36→22:12)
[2018-10-30] MEDS: POTASSIUM CHLORIDE 10 MEQ SR TABLET PO SCH (08:36)
[2018-10-30] MEDS: FOLIC ACID 1 MG TAB PO SCH (08:36)
[2018-10-30] MEDS: MULTIVITAMINS/MINERALS THERAP 1 TAB PO SCH (08:36)
[2018-10-30] MEDS: TRIAMCINOLONE ACET 0.1% OINTMENT 80 GM TOP SCH ×2 (09:09→22:13)
[2018-10-30] MEDS: CIPROFLOXACIN 400 MG in IV 1 EA IV SCH ×2 (10:57→22:12)
--- NOTE | 2018-10-30 17:32 | IPNPDOC ---
Date Seen The patient was seen on 10/30/18. Progress Note SUBJECTIVE: "I want to go home today." Per PT, pt not safe for discharge. pt lives alone. denies sob, n/v/tolerating his diet, but still with some discomfort in epigastric and RUQ. no hematemesis. unable to stand unassisted. pt says his bedroom and clothes are on the second floor, and "I can manage. My friend will help me." OBJECTIVE: PHYSICAL EXAMINATION: VITAL SIGNS: PLS SEE BELOW GENERAL:sitting on recliner chair. conversant . The patient is much more awake and alert today. still disoriented to place and time. He is able to say his name. Pupils are round and reactive. Extraocular muscles are intact. No jugular venous distention (JVD). No thyromegaly. Anicteric. No jaundice. Moist mucous membranes. LUNGS: HEART: S1, S2. Sinus rhythm. No murmurs, rubs or gallops. ABDOMEN: Soft. Tender in the right upper quadrant. No rebound or guarding. No costovertebral angle tenderness. Positive fluid wave in the lower quadrants bilaterally. EXTREMITIES: Both upper and lower extremities have positive pitting edema. HOSPITAL MEDICATIONS: - ciprofloxacin- Flagyl- potassium- magnesium- Kenalog cream- hypoglycemic protocol- thiamine - B12- Protonix- folic acid- multivitamin LABORATORY DATA: REVIEWED CT of the abdomen and pelvis on 10/28/2018 shows anasarca, diffuse decrease in hepatic parenchymal density consistent with fatty infiltration, hepatomegaly, marked pancreatic atrophy. ASSESSMENT AND PLAN: This is a 58-year-old chronic alcoholic with recurrent admissions for alcoholic related pancreatitis, brought in by police with confusion, complained of chest tightness. The patient has a known history of grade 1 diastolic dysfunction, ejection fraction of 70%, pancytopenia due to liver disease, fatty liver. CT showed pancreatitis. Pancreatitis/gastritis, resolved The patient is status post octreotide drip, proton pump inhibitor. He has tolerated his diet well and has been pureed diet initially and currently advanced to mechanical soft level II with thin liquids, always with supervision to prevent aspiration risk. The patient underwent repeat CT of the abdomen due to persistent lactic acidosis and hypotension requiring intravenous fluid hydration. CT of the abdomen is unchanged with fatty liver and atrophy of the pancreas with no necrosis, pseudocyst or abscess. Acute encephalopathy, improved secondary to gastrointestinal bleed with no signs of elevated ammonia levels. The patient has pancreatitis and improving slowly. He is on seizure precautions for alcohol withdrawal. Ammonia level is normal. Currently on IV Cipro and Flagyl, previously been on Zosyn. UA was negative. Chest x-ray was negative. Gait imbalance, not safe for discharge. unable to ambulate independently and remains a fall risk ruling out subacute degeneration of the cord secondary to chronic alcoholism and B12 deficiency. methylmalonic acid, homocysteine and B12 levels. MRI of the brain. CT of the brain was negative, only showing encephalomalacia. PT /ARU screen Abnormal CT of the brain with encephalomalacia. No new changes. No acute CVA. Hypoalbuminemia due to etoh liver disease Chronic pancytopenia secondary to advanced liver disease. No active signs of bleeding at this time. No acute indication for red blood cell, platelets transfusions. disposition: not safe for discharge. cannot ambulate independently and fall risk. lives alone. VS, I&O, 24H, Fishbone Vital Signs/I&O Vital Signs Date Time Temp Pulse Resp B/P (MAP) Pulse Ox O2 Delivery O2 Flow Rate FiO2 10/30/18 14:00 98.1 80 18 114/78 (90) 99 I&O- Last 24 Hours up to 6 AM 10/30/18 06:00 Intake Total 300 ml Output Total 500 ml Balance -200 ml Laboratory Data 24H LABS Laboratory Tests 2 10/30/18 06:28: Immature Granulocyte % (Auto) 2.8, White Blood Count 2.8L, Red Blood Count 3.06L, Hemoglobin 9.6L, Hematocrit 29.7L, Mean Corpuscular Volume 97.1H, Mean Corpuscular Hemoglobin 31.4, Mean Corpuscular Hemoglobin Concent 32.3, Red Cell Distribution Width 14.8H, Platelet Count 146#L, Neutrophils (%) (Auto) 50.7, Lymphocytes (%) (Auto) 30.3, Monocytes (%) (Auto) 12.3H, Eosinophils (%) (Auto) 3.2H, Basophils (%) (Auto) 0.7, Neutrophils # (Auto) 1.4L, Lymphocytes # (Auto) 0.9L, Monocytes # (Auto) 0.4, Eosinophils # (Auto) 0.1, Basophils # (Auto) 0.0, Nucleated Red Blood Cells % (auto) 0.0, Anion Gap 8, Glomerular Filtration Rate > 60.0, Blood Urea Nitrogen 3L, Creatinine 0.95, Sodium Level 140, Potassium Level 4.1, Chloride Level 106, Carbon Dioxide Level 26, Calcium Level 8.0L, Aspartate Amino Transf (AST/SGOT) 41H, Alanine Aminotransferase (ALT/SGPT) 43, Alkaline Phosphatase 101, Total Bilirubin 0.8, Total Protein 5.0L, Albumin 2.2L, Albumin/Globulin Ratio 0.79L CBC/BMP Laboratory Tests 10/30/18 06:28 Red Blood Count 3.06 L, Mean Corpuscular Volume 97.1 H, Mean Corpuscular Hemoglobin 31.4, Mean Corpuscular Hemoglobin Concent 32.3, Red Cell Distribution Width 14.8 H, Neutrophils (%) (Auto) 50.7, Lymphocytes (%) (Auto) 30.3, Monocytes (%) (Auto) 12.3 H, Eosinophils (%) (Auto) 3.2 H, Basophils (%) (Auto) 0.7, Neutrophils # (Auto) 1.4 L, Lymphocytes # (Auto) 0.9 L, Monocytes # (Auto) 0.4, Eosinophils # (Auto) 0.1, Basophils # (Auto) 0.0, Calcium Level 8.0 L, Aspartate Amino Transf (AST/SGOT) 41 H, Alanine Aminotransferase (ALT/SGPT) 43, Alkaline Phosphatase 101, Total Bilirubin 0.8, Total Protein 5.0 L, Albumin 2.2 L Microbiology Microbiology 10/29/18 Blood Culture - Preliminary, Resulted No growth after 24 hours . All specim... FABIAN LEA MD Oct 30, 2018 17:29
[2018-10-31] VITALS: BP_SYST 105; BP_SYST 110; BP_DIAS 64; BP_DIAS 75
[2018-10-31 04:00] VITALS: BP 114/66
[2018-10-31 06:00] VITALS: BP 98/71
[2018-10-31] MEDS: THIAMINE HCL 200 MG/2 ML VIAL (J3411) IV SCH ×2 (08:32→21:28)
[2018-10-31] MEDS: CYANOCOBALAMIN 500 MCG TAB PO SCH (08:33)
[2018-10-31] MEDS: metroNIDAZOLE 500 MG in IV 1 EA IV SCH ×3 (08:33→23:33)
[2018-10-31] MEDS: MAGNESIUM OXIDE 400 MG TAB (MAG-OX) PO SCH ×2 (08:34→21:28)
[2018-10-31] MEDS: FOLIC ACID 1 MG TAB PO SCH (08:34)
[2018-10-31] MEDS: POTASSIUM CHLORIDE 10 MEQ SR TABLET PO SCH (08:34)
[2018-10-31] MEDS: MULTIVITAMINS/MINERALS THERAP 1 TAB PO SCH (08:34)
[2018-10-31] MEDS: PANTOPRAZOLE 40MG INJ (PROTONIX) (C9113) IV SCH ×2 (08:34→21:28)
[2018-10-31] MEDS: TRIAMCINOLONE ACET 0.1% OINTMENT 80 GM TOP SCH ×2 (08:35→21:28)
[2018-10-31] MEDS: CIPROFLOXACIN 400 MG in IV 1 EA IV SCH ×2 (09:43→21:28)
[2018-10-31 10:00] LABS: HEMATOCRIT 29.8 % (42.0-52.0); HEMOGLOBIN 9.9 g/dl (13.5-17.5); MEAN CORPUSCULAR HEMOGLOBIN 31.4 pg (27.0-33.0); MEAN CORPUSCULAR HGB CONC 33.2 g/dl (32.0-36.5); MEAN CORPUSCULAR VOLUME 94.6 fl (80.0-96.0); PLATELET COUNT, AUTOMATED 188 10^3/uL (150-450); RED BLOOD COUNT 3.15 10^6/uL (4.30-6.10); WHITE BLOOD COUNT 3.2 10^3/uL (4.0-10.0)
[2018-10-31 10:22] LABS: ALBUMIN 2.4 GM/DL (3.2-5.2); ALT/SGPT 40 U/L (12-78); AMYLASE 28 U/L (25-115); BILIRUBIN,TOTAL 0.8 MG/DL (0.2-1.0); BLOOD UREA NITROGEN 3 MG/DL (7-18); CARBON DIOXIDE LEVEL 25 MEQ/L (21-32); CHLORIDE LEVEL 104 MEQ/L (98-107); CREATININE FOR GFR 0.92 MG/DL (0.70-1.30); GLOMERULAR FILTRATION RATE > 60.0 (>56); GLUCOSE, FASTING 91 MG/DL (70-100); LIPASE 12 U/L (73-393); POTASSIUM SERUM 4.2 MEQ/L (3.5-5.1); SODIUM LEVEL 137 MEQ/L (136-145); TOTAL PROTEIN 5.2 GM/DL (6.4-8.2)
[2018-10-31 14:00] VITALS: BP 110/68
--- NOTE | 2018-10-31 17:44 | IPNPDOC ---
Date Seen The patient was seen on 10/31/18. Progress Note SUBJECTIVE: Overnight, pt unable urinated in his bed and had to be changed seven times. Per aid, inappropriate sexual comments towards her, which the patient denied. Pt tolerating his diet,no abd pain, but still weak, and unable to ambulate independently requiring assistance. OBJECTIVE: PHYSICAL EXAMINATION: VITAL SIGNS: PLS SEE BELOW GENERAL:in bed eating breakfast. still disoriented to place and time. converses, but does not make sense at times. Extraocular muscles are intact. No jugular venous distention (JVD). No thyromegaly. Anicteric. No jaundice. Moist mucous membranes. LUNGS: diminished coarse breath sounds. HEART: S1, S2. Sinus rhythm. No murmurs, rubs or gallops. ABDOMEN: Soft. No rebound or guarding. No costovertebral angle tenderness. EXTREMITIES: Both upper and lower extremities have positive pitting edema. HOSPITAL MEDICATIONS: - ciprofloxacin- Flagyl- potassium- magnesium- Kenalog cream- hypoglycemic protocol- thiamine - B12- Protonix- folic acid- multivitamin LABORATORY DATA: REVIEWED CT of the abdomen and pelvis on 10/28/2018 shows anasarca, diffuse decrease in hepatic parenchymal density consistent with fatty infiltration, hepatomegaly, marked pancreatic atrophy. ASSESSMENT AND PLAN: This is a 58-year-old chronic alcoholic with recurrent admissions for alcoholic related pancreatitis, brought in by police with confusion, complained of chest tightness. The patient has a known history of grade 1 diastolic dysfunction, ejection fraction of 70%, pancytopenia due to liver disease, fatty liver. CT showed pancreatitis. Pancreatitis/gastritis, resolved The patient is status post octreotide drip, proton pump inhibitor. He has tolerated his diet well and has been pureed diet initially and currently advanced to mechanical soft level II with thin liquids, always with supervision to prevent aspiration risk. The patient underwent repeat CT of the abdomen due to persistent lactic acidosis and hypotension requiring intravenous fluid hydration. CT of the abdomen is unchanged with fatty liver and atrophy of the pancreas with no necrosis, pseudocyst or abscess. Acute encephalopathy, improved secondary to gastrointestinal bleed with no signs of elevated ammonia levels. The patient has pancreatitis and improving slowly. He is on seizure precautions for alcohol withdrawal. Ammonia level is normal. Currently on IV Cipro and Flagyl, previously been on Zosyn. UA was negative. Chest x-ray was negative. Gait imbalance, not safe for discharge. unable to ambulate independently and remains a fall risk ruling out subacute degeneration of the cord secondary to chronic alcoholism and B12 deficiency. methylmalonic acid, homocysteine and B12 levels. MRI of the brain. CT of the brain was negative, only showing encephalomalacia. PT /ARU screen Abnormal CT of the brain with encephalomalacia. No new changes. No acute CVA. Hypoalbuminemia due to etoh liver disease Chronic pancytopenia secondary to advanced liver disease. No active signs of bleeding at this time. No acute indication for red blood cell, platelets transfusions. Inapproriate behavior with history of psychiatric illness if persistent lewd comments toward [facility] staff, will obtain psychiatric consultation on Thursday. disposition: not safe for discharge. cannot ambulate independently and fall risk. lives alone. VS, I&O, 24H, [facility] Vital Signs/I&O Vital Signs Date Time Temp Pulse Resp B/P (MAP) Pulse Ox O2 Delivery O2 Flow Rate FiO2 10/31/18 14:00 97.6 88 18 110/68 (82) 98 I&O- Last 24 Hours up to 6 AM 10/31/18 06:00 Intake Total 1600 ml Output Total 150 ml Balance 1450 ml Laboratory Data 24H LABS Laboratory Tests 2 10/31/18 09:41: Nucleated Red Blood Cells % (auto) 0.0, Anion Gap 8, Glomerular Filtration Rate > 60.0, Lactic Acid Level 1.0, Blood Urea Nitrogen 3L, Creatinine 0.92, Sodium Level 137, Potassium Level 4.2, Chloride Level 104, Carbon Dioxide Level 25, Calcium Level 8.0L, Aspartate Amino Transf (AST/SGOT) 46H, Alanine Aminotransferase (ALT/SGPT) 40, Alkaline Phosphatase 114, Total Bilirubin 0.8, Total Protein 5.2L, Albumin 2.4L, Albumin/Globulin Ratio 0.86L, Amylase Level 28, Lipase 12L CBC/BMP Laboratory Tests 10/31/18 09:41 Red Blood Count 3.15 L, Mean Corpuscular Volume 94.6, Mean Corpuscular Hemoglobin 31.4, Mean Corpuscular Hemoglobin Concent 33.2, Red Cell Distribution Width 14.8 H, Calcium Level 8.0 L, Aspartate Amino Transf (AST/SGOT) 46 H, Alanine Aminotransferase (ALT/SGPT) 40, Alkaline Phosphatase 114, Total Bilirubin 0.8, Total Protein 5.2 L, Albumin 2.4 L Microbiology Microbiology 10/29/18 Blood Culture - Preliminary, Resulted No Growth after 48 hours. All Specime... FABIAN LEA MD Oct 31, 2018 17:43
[2018-10-31 22:00] VITALS: BP 113/79
[2018-11-01 06:00] VITALS: BP 115/78
[2018-11-01] MEDS: PANTOPRAZOLE 40MG INJ (PROTONIX) (C9113) IV SCH (08:18)
[2018-11-01] MEDS: MULTIVITAMINS/MINERALS THERAP 1 TAB PO SCH (08:18)
[2018-11-01] MEDS: POTASSIUM CHLORIDE 10 MEQ SR TABLET PO SCH (08:18)
[2018-11-01] MEDS: THIAMINE HCL 200 MG/2 ML VIAL (J3411) IV SCH (08:18)
[2018-11-01] MEDS: FOLIC ACID 1 MG TAB PO SCH (08:18)
[2018-11-01] MEDS: CYANOCOBALAMIN 500 MCG TAB PO SCH (08:19)
[2018-11-01] MEDS: MAGNESIUM OXIDE 400 MG TAB (MAG-OX) PO SCH ×2 (08:19→22:12)
[2018-11-01] MEDS: TRIAMCINOLONE ACET 0.1% OINTMENT 80 GM TOP SCH ×2 (08:19→22:13)
[2018-11-01] MEDS: metroNIDAZOLE 500 MG in IV 1 EA IV SCH (08:20)
[2018-11-01 14:00] VITALS: BP 112/78
--- NOTE | 2018-11-01 14:36 | REP ---
MRI BRAIN WITHOUT CONTRAST: HISTORY: Gait ataxia. Comparison CT study October 27, 2018. Comparison MRI study August 18, 2018. TECHNIQUE: Axial and sagittal imaging planes are utilized for T1- and T2-weighted scans. Sequences include spin echo, fast spin echo, FLAIR, and diffusion weighted sequences. MRI FINDINGS: No acute bony calvarial lesion is seen. Craniocervical junction remains unremarkable. There is evidence of encephalomalacia post hemorrhagic contusion of bilateral inferior frontal lobes with hemosiderin lined fluid collections in the inferior frontal lobes bilaterally. The largest is on the right and these are unchanged. The area on the right measures 4.4 cm in greatest diameter. There are similar less pronounced changes in the right inferior temporal low. There is a small area of parenchymal hemosiderin staining in the left posterior frontal lobe. These areas are all unchanged from most recent prior MRI study. Periventricular T2 hyperintense areas are seen in the frontal and parietal lobes bilaterally consistent with a mild small vessel changes. There is mild enlargement of the third and lateral ventricles unchanged from the comparison study. Fourth ventricle is normal in size. Moderate generalized volume loss again seen. IMPRESSION: Evidence of old intracranial hemorrhages affecting the frontal lobes bilaterally in the right temporal and left posterior frontal lobe. No acute intracranial abnormality. Electronically Signed by Bienvenido Ling MD 11/01/2018 05:18 P
--- NOTE | 2018-11-01 21:35 | IPNPDOC ---
Date Seen The patient was seen on 11/01/18. Progress Note SUBJECTIVE: anxious to go home, but unable to ambulate. 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 tolerating his diet, no c/o abd pain, n/v. still confused. OBJECTIVE: PHYSICAL EXAMINATION: VITAL SIGNS: PLS SEE BELOW GENERAL:disoriented to time , but conversant. No thyromegaly. Anicteric. No jaundice. Moist mucous membranes. LUNGS: diminished coarse breath sounds. HEART: S1, S2. Sinus rhythm. No murmurs, rubs or gallops. ABDOMEN: Soft. No rebound or guarding. No costovertebral angle tenderness. EXTREMITIES: Both upper and lower extremities have positive pitting edema. HOSPITAL MEDICATIONS: - ciprofloxacin- Flagyl- potassium- magnesium- Kenalog cream- hypoglycemic protocol- thiamine - B12- Protonix- folic acid- multivitamin LABORATORY DATA: REVIEWED CT of the abdomen and pelvis on 10/28/2018 shows anasarca, diffuse decrease in hepatic parenchymal density consistent with fatty infiltration, hepatomegaly, marked pancreatic atrophy. ASSESSMENT AND PLAN: This is a 58-year-old chronic alcoholic with recurrent admissions for alcoholic related pancreatitis, brought in by police with confusion, complained of chest tightness. The patient has a known history of grade 1 diastolic dysfunction, ejection fraction of 70%, pancytopenia due to liver disease, fatty liver. CT showed pancreatitis. Pancreatitis/gastritis, resolved tolerating his food without abd pain, n/v. on ppi. s/p octreotide. h&h stable. encephalopathy, improving but not to baseline due to chronic CVA Gait imbalance, not safe for discharge. unable to ambulate independently and remains a fall risk MRI Brain reviewed PT /ARU screen Hypoalbuminemia due to etoh liver disease Chronic pancytopenia secondary to advanced liver disease. No active signs of bleeding at this time. No acute indication for red blood cell, platelets transfusions. Inapproriate behavior most likely due to frontal CVA on MRI. disposition: not safe for discharge. cannot ambulate independently and fall risk. lives alone. VS, I&O, 24H, Fishbone Vital Signs/I&O Vital Signs Date Time Temp Pulse Resp B/P (MAP) Pulse Ox O2 Delivery O2 Flow Rate FiO2 11/01/18 14:00 98.8 92 17 112/78 (89) 98 I&O- Last 24 Hours up to 6 AM 11/01/18 06:00 Intake Total 840 ml Output Total 0 ml Balance 840 ml Laboratory Data Microbiology Microbiology 10/29/18 Blood Culture - Preliminary, Resulted No Growth after 72 hours. All specime... FABIAN LEA MD Nov 01, 2018 21:35
[2018-11-01 22:00] VITALS: BP 118/80
[2018-11-01] MEDS: PANTOPRAZOLE 40MG TAB (PROTONIX) PO SCH (22:13)
[2018-11-02 06:00] VITALS: BP 114/86
[2018-11-02] MEDS: THIAMINE 100 MG TAB PO SCH (10:01)
[2018-11-02] MEDS: MULTIVITAMINS/MINERALS THERAP 1 TAB PO SCH (10:01)
[2018-11-02] MEDS: FOLIC ACID 1 MG TAB PO SCH (10:01)
[2018-11-02] MEDS: MAGNESIUM OXIDE 400 MG TAB (MAG-OX) PO SCH ×2 (10:02→21:12)
[2018-11-02] MEDS: CYANOCOBALAMIN 500 MCG TAB PO SCH (10:02)
[2018-11-02] MEDS: PANTOPRAZOLE 40MG TAB (PROTONIX) PO SCH ×2 (10:02→21:12)
[2018-11-02] MEDS: POTASSIUM CHLORIDE 10 MEQ SR TABLET PO SCH (10:02)
[2018-11-02 11:47] LABS: Methylmalonic Acid 159 nmol/L (0-378)
[2018-11-02 14:00] VITALS: BP 114/79
--- NOTE | 2018-11-02 15:51 | IPNPDOC ---
Text Note Date of Service The patient was seen on 11/02/18. NOTE SUBJECTIVE: Anxious to go home, but unable to ambulate. Confused, as per nurses was trying to drink from urinal saying it was gingerale but warm, had some inappropriate behavior with nurses. 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 tolerating his diet, no c/o abd pain, n/v. OBJECTIVE: PHYSICAL EXAMINATION: VITAL SIGNS: PLS SEE BELOW GENERAL: disoriented to time , but conversant. awake and alert knows name and says this is hospital does not know the name. NECK: No thyromegaly. No JVD HEENT: Anicteric. No jaundice. Moist mucous membranes. LUNGS: diminished coarse breath sounds. HEART: S1, S2. Sinus rhythm. No murmurs, rubs or gallops. ABDOMEN: Soft. No rebound or guarding. No costovertebral angle tenderness. EXTREMITIES: Both upper and lower extremities have positive pitting edema. Skin: warm and dry. Neurology: there is gait disturbance ti tendency to move to right. LABORATORY DATA: REVIEWED CT of the abdomen and pelvis on 10/28/2018 shows anasarca, diffuse decrease in hepatic parenchymal density consistent with fatty infiltration, hepatomegaly, marked pancreatic atrophy. ASSESSMENT AND PLAN: This is a 58-year-old chronic alcoholic with recurrent admissions for alcoholic related pancreatitis, brought in by police with confusion, complained of chest tightness. The patient has a known history of grade 1 diastolic dysfunction, ejection fraction of 70%, pancytopenia due to liver disease, fatty liver. CT showed pancreatitis. Pancreatitis/gastritis, resolved tolerating his food without abd pain, n/v. on ppi. s/p octreotide. h&h stable. encephalopathy, improving but not to baseline due to chronic CVA, alcohol related. Possible Dementia due to chronic alcohol abuse, reccurent brain hemorrhages old seen in MRI. will inappropriate behavior Gait imbalance, not safe for discharge. unable to ambulate independently and remains a fall risk MRI Brain reviewed PT /ARU screen Hypoalbuminemia due to etoh liver disease Chronic pancytopenia secondary to advanced liver disease. No active signs of bleeding at this time. No acute indication for red blood cell, platelets transfusions. Inapproriate behavior most likely due to frontal CVA and chronic alcohol related dementia disposition: not safe for discharge. cannot ambulate independently and fall risk. lives alone. VS,Fishbone, I+O VS, Fishbone, I+O Vital Signs Date Time Temp Pulse Resp B/P (MAP) Pulse Ox O2 Delivery O2 Flow Rate FiO2 11/02/18 14:00 97.1 81 18 114/79 (91) 99 I&O- Last 24 Hours up to 6 AM 11/02/18 06:00 Intake Total 810 ml Output Total 700 ml Balance 110 ml RUY ADRIAN MD Nov 02, 2018 15:51
[2018-11-02 22:00] VITALS: BP 117/84
[2018-11-03 03:45] VITALS: BP 138/80
[2018-11-03 06:00] VITALS: BP 122/81
[2018-11-03 07:50] VITALS: BP 120/76
[2018-11-03 08:20] VITALS: BP 120/76
[2018-11-03] MEDS: ENOXAPARIN 40 MG/0.4 ML SYRINGE (J1650) SC SCH (09:34)
[2018-11-03] MEDS: POTASSIUM CHLORIDE 10 MEQ SR TABLET PO SCH (09:35)
[2018-11-03] MEDS: PANTOPRAZOLE 40MG TAB (PROTONIX) PO SCH ×2 (09:35→20:27)
[2018-11-03] MEDS: CYANOCOBALAMIN 500 MCG TAB PO SCH (09:35)
[2018-11-03] MEDS: FOLIC ACID 1 MG TAB PO SCH (09:36)
[2018-11-03] MEDS: MAGNESIUM OXIDE 400 MG TAB (MAG-OX) PO SCH ×2 (09:36→20:27)
[2018-11-03] MEDS: MULTIVITAMINS/MINERALS THERAP 1 TAB PO SCH (09:36)
[2018-11-03] MEDS: THIAMINE 100 MG TAB PO SCH (09:36)
--- NOTE | 2018-11-03 12:49 | IPNPDOC ---
Text Note Date of Service The patient was seen on 11/03/18. NOTE SUBJECTIVE: Had a fall last night as got up by himself and tried to walk to bathroom and lost balance and sat down on the floor. No injury. This morning says wants to go home feeling better no complaints, no fever or chills, poor memory, intermittent confusion. OBJECTIVE: PHYSICAL EXAMINATION: VITAL SIGNS: PLS SEE BELOW GENERAL: disoriented to time , but conversant. awake and alert knows name and says this is hospital does not know the name. NECK: No thyromegaly. No JVD HEENT: Anicteric. No jaundice. Moist mucous membranes. LUNGS: diminished coarse breath sounds. HEART: S1, S2. Sinus rhythm. No murmurs, rubs or gallops. ABDOMEN: Soft. No rebound or guarding. No costovertebral angle tenderness. EXTREMITIES: Both upper and lower extremities have positive pitting edema. Skin: warm and dry. Neurology: there is gait disturbance ti tendency to move to right. LABORATORY DATA: REVIEWED CT of the abdomen and pelvis on 10/28/2018 shows anasarca, diffuse decrease in hepatic parenchymal density consistent with fatty infiltration, hepatomegaly, marked pancreatic atrophy. ASSESSMENT AND PLAN: This is a 58-year-old chronic alcoholic with recurrent admissions for alcoholic related pancreatitis, brought in by police with confusion, complained of chest tightness. The patient has a known history of grade 1 diastolic dysfunction, ejection fraction of 70%, pancytopenia due to liver disease, fatty liver. CT showed pancreatitis. Pancreatitis/gastritis, resolved tolerating his food without abd pain, n/v. on ppi. s/p octreotide. h&h stable. Encephalopathy, improving but not to baseline due to chronic CVA, alcohol related. Possible Dementia due to chronic alcohol abuse, reccurent brain hemorrhages old seen in MRI. will inappropriate behavior Gait imbalance, not safe for discharge. unable to ambulate independently and remains a fall risk MRI Brain reviewed PT /ARU screen Hypoalbuminemia due to etoh liver disease Chronic pancytopenia secondary to advanced liver disease. No active signs of bleeding at this time. No acute indication for red blood cell, platelets transfusions. Inapproriate behavior most likely due to frontal CVA and chronic alcohol related dementia disposition: not safe for discharge. cannot ambulate independently and fall risk. lives alone. VS,Fishbone, I+O VS, Fishbone, I+O Vital Signs Date Time Temp Pulse Resp B/P (MAP) Pulse Ox O2 Delivery O2 Flow Rate FiO2 11/03/18 08:20 99.5 75 16 120/76 (91) 98 I&O- Last 24 Hours up to 6 AM 11/03/18 06:00 Intake Total 1860 ml Output Total 850 ml Balance 1010 ml RUY ADRIAN MD Nov 03, 2018 12:49
[2018-11-03 14:00] VITALS: BP 109/70
[2018-11-04 06:42] VITALS: BP 114/79
[2018-11-04 07:14] LABS: HEMATOCRIT 26.5 % (42.0-52.0); HEMOGLOBIN 8.6 g/dl (13.5-17.5); MEAN CORPUSCULAR HGB CONC 32.5 g/dl (32.0-36.5); MEAN CORPUSCULAR VOLUME 95.7 fl (80.0-96.0); PLATELET COUNT, AUTOMATED 219 10^3/uL (150-450); RED BLOOD COUNT 2.77 10^6/uL (4.30-6.10); WHITE BLOOD COUNT 3.5 10^3/uL (4.0-10.0)
[2018-11-04 07:39] LABS: BLOOD UREA NITROGEN 4 MG/DL (7-18); CALCIUM LEVEL 8.1 MG/DL (8.5-10.1); CARBON DIOXIDE LEVEL 25 MEQ/L (21-32); CHLORIDE LEVEL 108 MEQ/L (98-107); CREATININE FOR GFR 0.98 MG/DL (0.70-1.30); GLOMERULAR FILTRATION RATE > 60.0 (>56); GLUCOSE, FASTING 105 MG/DL (70-100); SODIUM LEVEL 140 MEQ/L (136-145)
[2018-11-04] MEDS: MULTIVITAMINS/MINERALS THERAP 1 TAB PO SCH (09:02)
[2018-11-04] MEDS: PANTOPRAZOLE 40MG TAB (PROTONIX) PO SCH ×2 (09:03→21:42)
[2018-11-04] MEDS: MAGNESIUM OXIDE 400 MG TAB (MAG-OX) PO SCH ×2 (09:03→21:42)
[2018-11-04] MEDS: CYANOCOBALAMIN 500 MCG TAB PO SCH (09:03)
[2018-11-04] MEDS: POTASSIUM CHLORIDE 10 MEQ SR TABLET PO SCH (09:03)
[2018-11-04] MEDS: THIAMINE 100 MG TAB PO SCH (09:03)
[2018-11-04] MEDS: FOLIC ACID 1 MG TAB PO SCH (09:03)
[2018-11-04] MEDS: ENOXAPARIN 40 MG/0.4 ML SYRINGE (J1650) SC SCH (09:03)
[2018-11-04 14:00] VITALS: BP 109/75
[2018-11-04 22:00] VITALS: BP 108/75
[2018-11-05 06:00] VITALS: BP 107/75
[2018-11-05] MEDS: FOLIC ACID 1 MG TAB PO SCH (08:15)
[2018-11-05] MEDS: THIAMINE 100 MG TAB PO SCH (08:15)
[2018-11-05] MEDS: MAGNESIUM OXIDE 400 MG TAB (MAG-OX) PO SCH ×2 (08:15→20:56)
[2018-11-05] MEDS: MULTIVITAMINS/MINERALS THERAP 1 TAB PO SCH (08:15)
[2018-11-05] MEDS: CYANOCOBALAMIN 500 MCG TAB PO SCH (08:16)
[2018-11-05] MEDS: PANTOPRAZOLE 40MG TAB (PROTONIX) PO SCH ×2 (08:16→20:56)
[2018-11-05] MEDS: POTASSIUM CHLORIDE 10 MEQ SR TABLET PO SCH (08:16)
[2018-11-05] MEDS: ENOXAPARIN 40 MG/0.4 ML SYRINGE (J1650) SC SCH (08:16)
[2018-11-05 22:00] VITALS: BP 105/65
[2018-11-06 06:00] VITALS: BP 106/66
[2018-11-06] MEDS: PANTOPRAZOLE 40MG TAB (PROTONIX) PO SCH ×2 (08:35→20:17)
[2018-11-06] MEDS: MULTIVITAMINS/MINERALS THERAP 1 TAB PO SCH (08:35)
[2018-11-06] MEDS: CYANOCOBALAMIN 500 MCG TAB PO SCH (08:35)
[2018-11-06] MEDS: MAGNESIUM OXIDE 400 MG TAB (MAG-OX) PO SCH ×2 (08:35→20:17)
[2018-11-06] MEDS: THIAMINE 100 MG TAB PO SCH (08:35)
[2018-11-06] MEDS: FOLIC ACID 1 MG TAB PO SCH (08:35)
[2018-11-06] MEDS: ENOXAPARIN 40 MG/0.4 ML SYRINGE (J1650) SC SCH (08:36)
[2018-11-06] MEDS: POTASSIUM CHLORIDE 10 MEQ SR TABLET PO SCH (08:36)
[2018-11-06 14:00] VITALS: BP 125/89
[2018-11-06 22:00] VITALS: BP 101/61
[2018-11-07 06:00] VITALS: BP 109/70
[2018-11-07] MEDS: FOLIC ACID 1 MG TAB PO SCH (08:09)
[2018-11-07] MEDS: MAGNESIUM OXIDE 400 MG TAB (MAG-OX) PO SCH ×2 (08:09→20:28)
[2018-11-07] MEDS: PANTOPRAZOLE 40MG TAB (PROTONIX) PO SCH ×2 (08:09→20:28)
[2018-11-07] MEDS: CYANOCOBALAMIN 500 MCG TAB PO SCH (08:10)
[2018-11-07] MEDS: MULTIVITAMINS/MINERALS THERAP 1 TAB PO SCH (08:10)
[2018-11-07] MEDS: POTASSIUM CHLORIDE 10 MEQ SR TABLET PO SCH (08:10)
[2018-11-07] MEDS: ENOXAPARIN 40 MG/0.4 ML SYRINGE (J1650) SC SCH (08:10)
[2018-11-07] MEDS: THIAMINE 100 MG TAB PO SCH (08:10)
[2018-11-07 14:00] VITALS: BP 98/67
[2018-11-07 22:00] VITALS: BP 100/68
[2018-11-08 06:00] VITALS: BP 103/59
[2018-11-08 06:27] LABS: HEMATOCRIT 26.7 % (42.0-52.0); HEMOGLOBIN 8.7 g/dl (13.5-17.5); MEAN CORPUSCULAR HEMOGLOBIN 31.2 pg (27.0-33.0); MEAN CORPUSCULAR HGB CONC 32.6 g/dl (32.0-36.5); MEAN CORPUSCULAR VOLUME 95.7 fl (80.0-96.0); PLATELET COUNT, AUTOMATED 197 10^3/uL (150-450); RED BLOOD COUNT 2.79 10^6/uL (4.30-6.10); WHITE BLOOD COUNT 3.8 10^3/uL (4.0-10.0)
[2018-11-08 06:58] LABS: BLOOD UREA NITROGEN 10 MG/DL (7-18); CALCIUM LEVEL 8.2 MG/DL (8.5-10.1); CARBON DIOXIDE LEVEL 23 MEQ/L (21-32); CHLORIDE LEVEL 108 MEQ/L (98-107); CREATININE FOR GFR 0.95 MG/DL (0.70-1.30); GLOMERULAR FILTRATION RATE > 60.0 (>56); GLUCOSE, FASTING 112 MG/DL (70-100); POTASSIUM SERUM 3.7 MEQ/L (3.5-5.1); SODIUM LEVEL 141 MEQ/L (136-145)
[2018-11-08] MEDS: POTASSIUM CHLORIDE 10 MEQ SR TABLET PO SCH (09:04)
[2018-11-08] MEDS: PANTOPRAZOLE 40MG TAB (PROTONIX) PO SCH ×2 (09:05→20:33)
[2018-11-08] MEDS: THIAMINE 100 MG TAB PO SCH (09:05)
[2018-11-08] MEDS: ENOXAPARIN 40 MG/0.4 ML SYRINGE (J1650) SC SCH (09:05)
[2018-11-08] MEDS: FOLIC ACID 1 MG TAB PO SCH (09:05)
[2018-11-08] MEDS: MAGNESIUM OXIDE 400 MG TAB (MAG-OX) PO SCH ×2 (09:05→20:33)
[2018-11-08] MEDS: CYANOCOBALAMIN 500 MCG TAB PO SCH (09:05)
[2018-11-08] MEDS: MULTIVITAMINS/MINERALS THERAP 1 TAB PO SCH (09:05)
[2018-11-08 09:33] LABS: FERRITIN 547 NG/ML (26-388); IRON (FE) 63 UG/DL (65-175); PERCENT SATURATION 43.8 % (19.7-50.0); TOTAL IRON BINDING CAPACITY 144 UG/DL (250-450)
[2018-11-09 06:00] VITALS: BP 103/70
[2018-11-09] MEDS: PANTOPRAZOLE 40MG TAB (PROTONIX) PO SCH ×2 (09:32→20:10)
[2018-11-09] MEDS: CYANOCOBALAMIN 500 MCG TAB PO SCH (09:32)
[2018-11-09] MEDS: ENOXAPARIN 40 MG/0.4 ML SYRINGE (J1650) SC SCH (09:32)
[2018-11-09] MEDS: THIAMINE 100 MG TAB PO SCH (09:32)
[2018-11-09] MEDS: FOLIC ACID 1 MG TAB PO SCH (09:32)
[2018-11-09] MEDS: MAGNESIUM OXIDE 400 MG TAB (MAG-OX) PO SCH ×2 (09:32→20:10)
[2018-11-09] MEDS: POTASSIUM CHLORIDE 10 MEQ SR TABLET PO SCH (09:32)
[2018-11-09] MEDS: MULTIVITAMINS/MINERALS THERAP 1 TAB PO SCH (09:34)
[2018-11-09 14:00] VITALS: BP 106/71
--- NOTE | 2018-11-09 15:26 | IPN ---
DATE: 11/09/2018 Per nursing, the patient has been persistently confused, as well as recurrent falls, unable to ambulate without assistance. He continues to lose his balance. He also has been confabulating and stated that yesterday two staff members told him that he needed to get out. He said that he put his coat on, went outside, got into the cab and went to [employer] to eat and then he went to the mall for a haircut, but the line was too long and then he returned back to the hospital and his vitals were taken. He continues to have poor memory and delusions. The patient states that he is not allowed to get up and walk and says that he did go out by himself and has gone outside the building and into [place] yesterday. OBJECTIVE: PHYSICAL EXAMINATION: VITAL SIGNS: Temperature 98.4, pulse 85, respiratory rate 18, blood pressure 103/70, 98% on room air. GENERAL: The patient is awake, alert and oriented to himself only. He is disoriented to where he is and [facility] and he is disoriented to time and unable to state the year. The patient is confused. He is still cooperative but is somewhat belligerent at the bedside. He has a sitter. He does not know that he is in the hospital. NECK: No jugular venous distention (JVD). EYES: Anicteric. No jaundice. No use of accessory muscles. The patient does appear disheveled with a polanco. The patient refused the rest of the examination. LABORATORY DATA: 11/08/2018 lab data has been reviewed. 11/09/2018 lab data is still pending. ASSESSMENT AND PLAN: This is a 58-year-old chronic alcoholic with recurrent admissions for alcoholic related pancreatitis, brought in by police with confusion, complained of chest tightness. The patient was found to have pancreatitis and gastritis, treated with octreotide drip, did not require RBC transfusion. Was found to have fatty liver and chronic pancytopenia due to alcohol use. He was advanced on his diet but had worsening encephalopathy due to his chronic CVA. The patient currently continues to have chronic encephalopathy, unable to be discharged due to inability to cooperate with physical therapy (PT). ACTIVE ISSUES: 1. Encephalopathy, multifactorial in nature with a history of traumatic brain injury. MRI of the brain shows old intracranial hemorrhages affecting the frontal lobe bilaterally, the right temporal and left posterior frontal lobe with no other intracranial abnormalities. The patient will require placement. He remains in alternate level of care (ALC) status and sitter is required. 2. Fatty liver due to chronic alcohol liver disease with chronic pancytopenia, currently does not have any gastrointestinal bleed, platelet count has significantly improved from admission of 46 to 146. He is not on any heparin. Doing well on Lovenox for deep vein thrombosis (DVT) prophylaxis with no signs of any active bleeding. 3. Gait imbalance. Awaiting physical therapy (PT) clearance. Currently not safe for discharge home. He is awaiting placement. 4. Hyperalbuminemia due to alcoholic liver disease. 5. Possible dementia due to chronic alcohol abuse and brain hemorrhages seen on the MRI. [id number]
[2018-11-10 06:00] VITALS: BP 114/81
[2018-11-10] MEDS: MULTIVITAMINS/MINERALS THERAP 1 TAB PO SCH (08:49)
[2018-11-10] MEDS: THIAMINE 100 MG TAB PO SCH (08:49)
[2018-11-10] MEDS: MAGNESIUM OXIDE 400 MG TAB (MAG-OX) PO SCH ×2 (08:49→20:21)
[2018-11-10] MEDS: PANTOPRAZOLE 40MG TAB (PROTONIX) PO SCH ×2 (08:49→20:21)
[2018-11-10] MEDS: CYANOCOBALAMIN 500 MCG TAB PO SCH (08:49)
[2018-11-10] MEDS: FOLIC ACID 1 MG TAB PO SCH (08:49)
[2018-11-10] MEDS: POTASSIUM CHLORIDE 10 MEQ SR TABLET PO SCH (08:50)
[2018-11-10] MEDS: ENOXAPARIN 40 MG/0.4 ML SYRINGE (J1650) SC SCH (08:50)
[2018-11-10 14:00] VITALS: BP 116/68
[2018-11-11 06:00] VITALS: BP 127/69
[2018-11-11 06:12] LABS: HEMATOCRIT 28.1 % (42.0-52.0); HEMOGLOBIN 8.9 g/dl (13.5-17.5); MEAN CORPUSCULAR HGB CONC 31.7 g/dl (32.0-36.5); MEAN CORPUSCULAR VOLUME 97.9 fl (80.0-96.0); PLATELET COUNT, AUTOMATED 196 10^3/uL (150-450); RED BLOOD COUNT 2.87 10^6/uL (4.30-6.10); WHITE BLOOD COUNT 3.2 10^3/uL (4.0-10.0)
[2018-11-11 06:33] LABS: BLOOD UREA NITROGEN 15 MG/DL (7-18); CALCIUM LEVEL 8.2 MG/DL (8.5-10.1); CARBON DIOXIDE LEVEL 22 MEQ/L (21-32); CHLORIDE LEVEL 110 MEQ/L (98-107); CREATININE FOR GFR 0.86 MG/DL (0.70-1.30); GLOMERULAR FILTRATION RATE > 60.0 (>56); GLUCOSE, FASTING 82 MG/DL (70-100); POTASSIUM SERUM 4.1 MEQ/L (3.5-5.1); SODIUM LEVEL 142 MEQ/L (136-145)
[2018-11-11] MEDS: CYANOCOBALAMIN 500 MCG TAB PO SCH (09:28)
[2018-11-11] MEDS: THIAMINE 100 MG TAB PO SCH (09:28)
[2018-11-11] MEDS: FOLIC ACID 1 MG TAB PO SCH (09:29)
[2018-11-11] MEDS: MULTIVITAMINS/MINERALS THERAP 1 TAB PO SCH (09:29)
[2018-11-11] MEDS: MAGNESIUM OXIDE 400 MG TAB (MAG-OX) PO SCH ×2 (09:29→21:14)
[2018-11-11] MEDS: PANTOPRAZOLE 40MG TAB (PROTONIX) PO SCH ×2 (09:29→21:14)
[2018-11-11] MEDS: POTASSIUM CHLORIDE 10 MEQ SR TABLET PO SCH (09:29)
[2018-11-11] MEDS: ENOXAPARIN 40 MG/0.4 ML SYRINGE (J1650) SC SCH (09:30)
[2018-11-12 06:00] VITALS: BP 116/82
[2018-11-12] MEDS: MAGNESIUM OXIDE 400 MG TAB (MAG-OX) PO SCH ×2 (08:55→20:03)
[2018-11-12] MEDS: CYANOCOBALAMIN 500 MCG TAB PO SCH (08:56)
[2018-11-12] MEDS: MULTIVITAMINS/MINERALS THERAP 1 TAB PO SCH (08:56)
[2018-11-12] MEDS: THIAMINE 100 MG TAB PO SCH (08:56)
[2018-11-12] MEDS: POTASSIUM CHLORIDE 10 MEQ SR TABLET PO SCH (08:56)
[2018-11-12] MEDS: PANTOPRAZOLE 40MG TAB (PROTONIX) PO SCH ×2 (08:56→20:03)
[2018-11-12] MEDS: FOLIC ACID 1 MG TAB PO SCH (08:57)
[2018-11-12] MEDS: ENOXAPARIN 40 MG/0.4 ML SYRINGE (J1650) SC SCH (08:57)
[2018-11-13 06:00] VITALS: BP 119/83
[2018-11-13] MEDS: POTASSIUM CHLORIDE 10 MEQ SR TABLET PO SCH (09:57)
[2018-11-13] MEDS: PANTOPRAZOLE 40MG TAB (PROTONIX) PO SCH ×2 (09:57→20:28)
[2018-11-13] MEDS: ENOXAPARIN 40 MG/0.4 ML SYRINGE (J1650) SC SCH (09:57)
[2018-11-13] MEDS: THIAMINE 100 MG TAB PO SCH (09:57)
[2018-11-13] MEDS: FOLIC ACID 1 MG TAB PO SCH (09:57)
[2018-11-13] MEDS: MULTIVITAMINS/MINERALS THERAP 1 TAB PO SCH (09:57)
[2018-11-13] MEDS: MAGNESIUM OXIDE 400 MG TAB (MAG-OX) PO SCH ×2 (09:58→20:28)
[2018-11-13] MEDS: CYANOCOBALAMIN 500 MCG TAB PO SCH (09:58)
[2018-11-14 06:00] VITALS: BP 117/60
[2018-11-14] MEDS: MULTIVITAMINS/MINERALS THERAP 1 TAB PO SCH (09:19)
[2018-11-14] MEDS: PANTOPRAZOLE 40MG TAB (PROTONIX) PO SCH ×2 (09:19→20:47)
[2018-11-14] MEDS: THIAMINE 100 MG TAB PO SCH (09:19)
[2018-11-14] MEDS: POTASSIUM CHLORIDE 10 MEQ SR TABLET PO SCH (09:19)
[2018-11-14] MEDS: MAGNESIUM OXIDE 400 MG TAB (MAG-OX) PO SCH ×2 (09:19→20:47)
[2018-11-14] MEDS: ENOXAPARIN 40 MG/0.4 ML SYRINGE (J1650) SC SCH (09:19)
[2018-11-14] MEDS: FOLIC ACID 1 MG TAB PO SCH (09:19)
[2018-11-14] MEDS: CYANOCOBALAMIN 500 MCG TAB PO SCH (09:20)
[2018-11-15] MEDS: POTASSIUM CHLORIDE 10 MEQ SR TABLET PO SCH (09:30)
[2018-11-15] MEDS: CYANOCOBALAMIN 500 MCG TAB PO SCH (09:31)
[2018-11-15] MEDS: FOLIC ACID 1 MG TAB PO SCH (09:31)
[2018-11-15] MEDS: PANTOPRAZOLE 40MG TAB (PROTONIX) PO SCH ×2 (09:31→20:14)
[2018-11-15] MEDS: THIAMINE 100 MG TAB PO SCH (09:31)
[2018-11-15] MEDS: MULTIVITAMINS/MINERALS THERAP 1 TAB PO SCH (09:31)
[2018-11-15] MEDS: MAGNESIUM OXIDE 400 MG TAB (MAG-OX) PO SCH ×2 (09:31→20:14)
[2018-11-15] MEDS: ENOXAPARIN 40 MG/0.4 ML SYRINGE (J1650) SC SCH (09:32)
[2018-11-15 11:32] LABS: HEMATOCRIT 31.4 % (42.0-52.0); HEMOGLOBIN 10.1 g/dl (13.5-17.5); MEAN CORPUSCULAR HEMOGLOBIN 31.6 pg (27.0-33.0); MEAN CORPUSCULAR HGB CONC 32.2 g/dl (32.0-36.5); MEAN CORPUSCULAR VOLUME 98.1 fl (80.0-96.0); PLATELET COUNT, AUTOMATED 226 10^3/uL (150-450); WHITE BLOOD COUNT 3.4 10^3/uL (4.0-10.0)
[2018-11-15 11:53] LABS: BLOOD UREA NITROGEN 14 MG/DL (7-18); CALCIUM LEVEL 8.5 MG/DL (8.5-10.1); CARBON DIOXIDE LEVEL 27 MEQ/L (21-32); CHLORIDE LEVEL 106 MEQ/L (98-107); CREATININE FOR GFR 0.92 MG/DL (0.70-1.30); GLOMERULAR FILTRATION RATE > 60.0 (>56); GLUCOSE, FASTING 118 MG/DL (70-100); POTASSIUM SERUM 4.2 MEQ/L (3.5-5.1); SODIUM LEVEL 139 MEQ/L (136-145)
[2018-11-16 06:00] VITALS: BP 117/79
[2018-11-16] MEDS: CYANOCOBALAMIN 500 MCG TAB PO SCH (09:00)
[2018-11-16] MEDS: FOLIC ACID 1 MG TAB PO SCH (09:00)
[2018-11-16] MEDS: ENOXAPARIN 40 MG/0.4 ML SYRINGE (J1650) SC SCH (09:00)
[2018-11-16] MEDS: MAGNESIUM OXIDE 400 MG TAB (MAG-OX) PO SCH ×2 (09:00→21:36)
[2018-11-16] MEDS: PANTOPRAZOLE 40MG TAB (PROTONIX) PO SCH ×2 (09:00→21:36)
[2018-11-16] MEDS: THIAMINE 100 MG TAB PO SCH (09:00)
[2018-11-16] MEDS: POTASSIUM CHLORIDE 10 MEQ SR TABLET PO SCH (09:00)
[2018-11-16] MEDS: MULTIVITAMINS/MINERALS THERAP 1 TAB PO SCH (09:00)
--- NOTE | 2018-11-16 10:27 | IPN ---
DATE: 11/16/2018 After a long talk with the patient's mother in [place], she says that [place], phone number [phone], patient apparently has two daughters and one of them can be the patient's healthcare proxy, according to nursing. Social work was able to touch base with them and they agreed with placement for Mr. Erwin Castillo. 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 Per staff, the patient is still not making any sense. He has been somewhat belligerent and refusing most of his medications and is requiring a sitter. This morning, the patient refused interview and examination and asked me to leave the room. PHYSICAL EXAMINATION: Could not be performed. VITAL SIGNS: Temperature 98.2, pulse 74, respiratory rate 19, blood pressure 117/79, 98% on room air. GENERAL: The patient appears disheveled, confused, only oriented to himself with tangential conversations. The rest of the examination could not be performed as the patient has refused. LABORATORY DATA: 11/15/2018 CBC and metabolic panel have been reviewed. ASSESSMENT AND PLAN: This is a 58-year-old male with chronic alcoholism with recurrent admissions for alcohol related pancreatitis, brought in by police with confusion, complains of chest tightness and found to have acute pancreatitis and gastritis, treated with octreotide drip, did not require RBCs transfusion. On imaging, the patient was found to have liver cirrhosis, fatty liver and chronic pancytopenia due to alcoholic liver disease. He initially was not safe to have a regular diet and was put on dysphagia diet, which was subsequently advanced as he improved. 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 1. Encephalopathy with history of traumatic brain injury. MRI showing hold intracranial hemorrhages affecting the frontal lobe, right temporal lobe and left posterior frontal lobe. The patient requires placement and remains in alternate level of care (ALC) status, sitter being required. 2. Fatty liver with chronic alcoholic liver disease and chronic pancytopenia. No acute gastrointestinal bleed at this time. Platelet count has been stable, is not requiring any blood or platelet transfusion. 3. Gait ataxia, most likely secondary to chronic alcoholism, as well as old CVA. Still awaiting placement to rehab facility. 4. Possible dementia due to chronic alcohol abuse and brain hemorrhages seen on MRI. The patient is still awaiting placement and refusing his medications at times and refusing interview and examination today. DANTE
[2018-11-17 06:00] VITALS: BP 114/75
[2018-11-17] MEDS: MAGNESIUM OXIDE 400 MG TAB (MAG-OX) PO SCH ×2 (09:00→21:34)
[2018-11-17] MEDS: ENOXAPARIN 40 MG/0.4 ML SYRINGE (J1650) SC SCH (09:00)
[2018-11-17] MEDS: CYANOCOBALAMIN 500 MCG TAB PO SCH (09:00)
[2018-11-17] MEDS: FOLIC ACID 1 MG TAB PO SCH (09:00)
[2018-11-17] MEDS: POTASSIUM CHLORIDE 10 MEQ SR TABLET PO SCH (09:00)
[2018-11-17] MEDS: THIAMINE 100 MG TAB PO SCH (09:00)
[2018-11-17] MEDS: MULTIVITAMINS/MINERALS THERAP 1 TAB PO SCH (09:00)
[2018-11-17] MEDS: PANTOPRAZOLE 40MG TAB (PROTONIX) PO SCH ×2 (09:00→21:34)
[2018-11-18 06:05] LABS: HEMATOCRIT 31.2 % (42.0-52.0); MEAN CORPUSCULAR HEMOGLOBIN 31.3 pg (27.0-33.0); MEAN CORPUSCULAR HGB CONC 32.1 g/dl (32.0-36.5); MEAN CORPUSCULAR VOLUME 97.5 fl (80.0-96.0); PLATELET COUNT, AUTOMATED 197 10^3/uL (150-450); WHITE BLOOD COUNT 4.5 10^3/uL (4.0-10.0)
[2018-11-18 06:28] LABS: BLOOD UREA NITROGEN 17 MG/DL (7-18); CALCIUM LEVEL 8.1 MG/DL (8.5-10.1); CARBON DIOXIDE LEVEL 26 MEQ/L (21-32); CHLORIDE LEVEL 108 MEQ/L (98-107); CREATININE FOR GFR 0.79 MG/DL (0.70-1.30); GLOMERULAR FILTRATION RATE > 60.0 (>56); GLUCOSE, FASTING 102 MG/DL (70-100); POTASSIUM SERUM 3.8 MEQ/L (3.5-5.1); SODIUM LEVEL 141 MEQ/L (136-145)
[2018-11-18] MEDS: PANTOPRAZOLE 40MG TAB (PROTONIX) PO SCH ×2 (09:38→20:20)
[2018-11-18] MEDS: CYANOCOBALAMIN 500 MCG TAB PO SCH (09:38)
[2018-11-18] MEDS: MULTIVITAMINS/MINERALS THERAP 1 TAB PO SCH (09:38)
[2018-11-18] MEDS: MAGNESIUM OXIDE 400 MG TAB (MAG-OX) PO SCH ×2 (09:38→20:21)
[2018-11-18] MEDS: FOLIC ACID 1 MG TAB PO SCH (09:38)
[2018-11-18] MEDS: THIAMINE 100 MG TAB PO SCH (09:38)
[2018-11-18] MEDS: POTASSIUM CHLORIDE 10 MEQ SR TABLET PO SCH (09:38)
[2018-11-18] MEDS: ENOXAPARIN 40 MG/0.4 ML SYRINGE (J1650) SC SCH (09:39)
[2018-11-18 22:00] VITALS: BP 121/75
[2018-11-19 06:00] VITALS: BP 133/72
[2018-11-19] MEDS: PANTOPRAZOLE 40MG TAB (PROTONIX) PO SCH ×2 (08:26→21:00)
[2018-11-19] MEDS: ENOXAPARIN 40 MG/0.4 ML SYRINGE (J1650) SC SCH (08:26)
[2018-11-19] MEDS: POTASSIUM CHLORIDE 10 MEQ SR TABLET PO SCH (08:26)
[2018-11-19] MEDS: MULTIVITAMINS/MINERALS THERAP 1 TAB PO SCH ×2 (08:27→09:00)
[2018-11-19] MEDS: CYANOCOBALAMIN 500 MCG TAB PO SCH ×2 (08:27→09:00)
[2018-11-19] MEDS: THIAMINE 100 MG TAB PO SCH ×2 (08:27→09:00)
[2018-11-19] MEDS: MAGNESIUM OXIDE 400 MG TAB (MAG-OX) PO SCH ×2 (08:27→21:00)
[2018-11-19] MEDS: FOLIC ACID 1 MG TAB PO SCH (08:27)
[2018-11-19] MEDS ORDERED: FOLI1TAB11 PO ×2 (08:30→09:56)
[2018-11-19] MEDS ORDERED: PANT40TA3 PO ×2 (08:30→09:56)
[2018-11-19] MEDS ORDERED: VITA500T40 PO ×2 (08:30→09:56)
[2018-11-20] MEDS: MULTIVITAMINS/MINERALS THERAP 1 TAB PO SCH (08:11)
[2018-11-20] MEDS: MAGNESIUM OXIDE 400 MG TAB (MAG-OX) PO SCH ×2 (08:11→21:00)
[2018-11-20] MEDS: PANTOPRAZOLE 40MG TAB (PROTONIX) PO SCH ×2 (08:12→21:00)
[2018-11-20] MEDS: THIAMINE 100 MG TAB PO SCH (08:12)
[2018-11-20] MEDS: POTASSIUM CHLORIDE 10 MEQ SR TABLET PO SCH (08:12)
[2018-11-20] MEDS: FOLIC ACID 1 MG TAB PO SCH (08:12)
[2018-11-20] MEDS: CYANOCOBALAMIN 500 MCG TAB PO SCH (08:12)
[2018-11-20] MEDS: ENOXAPARIN 40 MG/0.4 ML SYRINGE (J1650) SC SCH (08:16)
[2018-11-21 06:00] VITALS: BP 94/67
[2018-11-21 09:29] VITALS: BP 111/74
[2018-11-21] MEDS: MAGNESIUM OXIDE 400 MG TAB (MAG-OX) PO SCH ×2 (09:30→21:11)
[2018-11-21] MEDS: CYANOCOBALAMIN 500 MCG TAB PO SCH (09:30)
[2018-11-21] MEDS: FOLIC ACID 1 MG TAB PO SCH (09:30)
[2018-11-21] MEDS: PANTOPRAZOLE 40MG TAB (PROTONIX) PO SCH ×2 (09:30→21:11)
[2018-11-21] MEDS: POTASSIUM CHLORIDE 10 MEQ SR TABLET PO SCH (09:30)
[2018-11-21] MEDS: ENOXAPARIN 40 MG/0.4 ML SYRINGE (J1650) SC SCH (09:30)
[2018-11-21] MEDS: THIAMINE 100 MG TAB PO SCH (09:30)
[2018-11-21] MEDS: MULTIVITAMINS/MINERALS THERAP 1 TAB PO SCH (09:30)
[2018-11-22 06:00] VITALS: BP 125/80
[2018-11-22 06:36] LABS: HEMATOCRIT 31.2 % (42.0-52.0); HEMOGLOBIN 10.1 g/dl (13.5-17.5); MEAN CORPUSCULAR HEMOGLOBIN 31.8 pg (27.0-33.0); MEAN CORPUSCULAR HGB CONC 32.4 g/dl (32.0-36.5); MEAN CORPUSCULAR VOLUME 98.1 fl (80.0-96.0); PLATELET COUNT, AUTOMATED 196 10^3/uL (150-450); RED BLOOD COUNT 3.18 10^6/uL (4.30-6.10); WHITE BLOOD COUNT 4.7 10^3/uL (4.0-10.0)
[2018-11-22 07:00] LABS: BLOOD UREA NITROGEN 11 MG/DL (7-18); CALCIUM LEVEL 8.3 MG/DL (8.5-10.1); CARBON DIOXIDE LEVEL 27 MEQ/L (21-32); CHLORIDE LEVEL 103 MEQ/L (98-107); CREATININE FOR GFR 0.87 MG/DL (0.70-1.30); GLOMERULAR FILTRATION RATE > 60.0 (>56); GLUCOSE, FASTING 81 MG/DL (70-100); POTASSIUM SERUM 4.2 MEQ/L (3.5-5.1); SODIUM LEVEL 136 MEQ/L (136-145)
[2018-11-22] MEDS: FOLIC ACID 1 MG TAB PO SCH (09:00)
[2018-11-22] MEDS: PANTOPRAZOLE 40MG TAB (PROTONIX) PO SCH ×2 (09:00→20:53)
[2018-11-22] MEDS: THIAMINE 100 MG TAB PO SCH (09:00)
[2018-11-22] MEDS: POTASSIUM CHLORIDE 10 MEQ SR TABLET PO SCH (09:00)
[2018-11-22] MEDS: MAGNESIUM OXIDE 400 MG TAB (MAG-OX) PO SCH ×2 (09:00→20:53)
[2018-11-22] MEDS: MULTIVITAMINS/MINERALS THERAP 1 TAB PO SCH (09:00)
[2018-11-22] MEDS: ENOXAPARIN 40 MG/0.4 ML SYRINGE (J1650) SC SCH (09:00)
[2018-11-23 06:00] VITALS: BP 95/64
[2018-11-23] MEDS: ENOXAPARIN 40 MG/0.4 ML SYRINGE (J1650) SC SCH (09:00)
[2018-11-23] MEDS: PANTOPRAZOLE 40MG TAB (PROTONIX) PO SCH ×2 (09:32→20:18)
[2018-11-23] MEDS: THIAMINE 100 MG TAB PO SCH (09:32)
[2018-11-23] MEDS: FOLIC ACID 1 MG TAB PO SCH (09:32)
[2018-11-23] MEDS: MULTIVITAMINS/MINERALS THERAP 1 TAB PO SCH (09:32)
--- NOTE | 2018-11-23 17:49 | IPNPDOC ---
Date Seen The patient was seen on 11/23/18. Progress Note SUBJECTIVE: 58-year-old male with history of alcoholism, pancreatitis, hemorrhagic CVA, was admitted over a month ago. His hospitalization has been pro longed due to placement issues, patient is unable to make decisions, but refuses to go to rehabilitation, patient has significant difficulties with confabulation. He is overall stable, comfortable in bed, tolerating diet, without any complaints, but reports that he is not getting appropriate medical care that he deserves. He is requiring a one-to-one. OBJECTIVE PHYSICAL EXAMINATION: VITAL SIGNS: Please see below. GENERAL: No distress HEENT: Normocephalic, atraumatic, moist mucous membranes NECK: Supple CARDIOVASCULAR EXAMINATION: S1, S2, no murmurs RESPIRATORY EXAMINATION: Clear to auscultation, no wheezing ABDOMINAL EXAMINATION: Soft, nontender, nondistended, positive bowel sounds EXTREMITIES: Range of motion intact SKIN: No rash NEUROLOGICAL EXAMINATION: no focal deficits PSYCHIATRIC EXAMINATION: Guarded LABORATORY DATA, IMAGING STUDIES, MICROBIOLOGY: Please see below. DVT prophylaxis ordered?: Yes ASSESSMENT AND PLAN: 58-year-old male with history of alcoholism, cirrhosis, hemorrhagic CVA with prolonged hospitalization due to placement issues. PROBLEMS: 1. Cirrhosis. History of alcohol use, vitamin deficiency. Patient confabulating. Received significant vitamin supplementation including thiamine, A, B12, folic acid, multivitamins. 2. Hemorrhagic CVA:, Stable on recent imaging, continue medical management. 3. Placement:. Patient was accepted for placement in an outpatient facility but patient refused to leave, case management social worker arranging alternative means that patient is agreeable to.. VS, I&O, 24H, Fishbone Vital Signs/I&O Vital Signs Date Time Temp Pulse Resp B/P (MAP) Pulse Ox O2 Delivery O2 Flow Rate FiO2 11/23/18 06:00 97.0 71 16 95/64 (74) 97 I&O- Last 24 Hours up to 6 AM 11/23/18 06:00 Intake Total 1715 ml Output Total 1600 ml Balance 115 ml ANASTASIA SINGH MD Nov 23, 2018 17:49
[2018-11-24 06:00] VITALS: BP 112/70
[2018-11-24] MEDS: FOLIC ACID 1 MG TAB PO SCH (08:04)
[2018-11-24] MEDS: MULTIVITAMINS/MINERALS THERAP 1 TAB PO SCH (08:04)
[2018-11-24] MEDS: PANTOPRAZOLE 40MG TAB (PROTONIX) PO SCH ×2 (08:04→21:40)
[2018-11-24] MEDS: THIAMINE 100 MG TAB PO SCH (08:04)
[2018-11-24] MEDS: ENOXAPARIN 40 MG/0.4 ML SYRINGE (J1650) SC SCH (08:04)
[2018-11-25 06:00] VITALS: BP 118/74
[2018-11-25 06:33] LABS: HEMATOCRIT 29.4 % (42.0-52.0); HEMOGLOBIN 9.5 g/dl (13.5-17.5); MEAN CORPUSCULAR HEMOGLOBIN 31.4 pg (27.0-33.0); MEAN CORPUSCULAR HGB CONC 32.3 g/dl (32.0-36.5); PLATELET COUNT, AUTOMATED 190 10^3/uL (150-450); RED BLOOD COUNT 3.03 10^6/uL (4.30-6.10); WHITE BLOOD COUNT 4.9 10^3/uL (4.0-10.0)
[2018-11-25 06:54] LABS: BLOOD UREA NITROGEN 14 MG/DL (7-18); CALCIUM LEVEL 8.4 MG/DL (8.5-10.1); CARBON DIOXIDE LEVEL 28 MEQ/L (21-32); CHLORIDE LEVEL 108 MEQ/L (98-107); CREATININE FOR GFR 0.87 MG/DL (0.70-1.30); GLOMERULAR FILTRATION RATE > 60.0 (>56); GLUCOSE, FASTING 88 MG/DL (70-100); POTASSIUM SERUM 4.1 MEQ/L (3.5-5.1); SODIUM LEVEL 139 MEQ/L (136-145)
[2018-11-25] MEDS: MULTIVITAMINS/MINERALS THERAP 1 TAB PO SCH (07:56)
[2018-11-25] MEDS: FOLIC ACID 1 MG TAB PO SCH (07:56)
[2018-11-25] MEDS: THIAMINE 100 MG TAB PO SCH (07:56)
[2018-11-25] MEDS: PANTOPRAZOLE 40MG TAB (PROTONIX) PO SCH ×2 (07:56→20:00)
[2018-11-25] MEDS: ENOXAPARIN 40 MG/0.4 ML SYRINGE (J1650) SC SCH (08:01)
--- NOTE | 2018-11-25 20:54 | MHCR ---
DATE OF CONSULTATION: 11/25/2018 HISTORY OF PRESENT ILLNESS: I was asked to evaluate this 58-year-old white man with a long standing history of severe alcohol abuse and a history of episodes of pancreatitis, hemorrhagic CVA. He has had a prolonged hospitalization because the patient has been difficult to place because he seems to be unable to make decisions and appears to be confused at times and frequently confabulates. He was apparently brought in by the police with confusion, complaints of chest tightness, and was found to have acute pancreatitis and gastritis. The patient is at times refusing his medications, requiring a sitter because he gets confused. When I saw the patient, the patient advised me that he had not requested a psychiatric evaluation, but he then proceeded to answer my questions mostly with a lot of sarcasm. The patient insisted that the only problem that he has is that when he stands up and walks for more than just a few minutes he gets dizzy and feels like he is going to fall. He insists that the doctors have not yet evaluated him for this and that they have not been providing the treatment that he feels that he needs. He denies any knowledge that he has ever been treated for alcoholic pancreatitis. He does admit that he was drinking heavily until right before he was admitted to the hospital. Overall, he was cooperative with the evaluation, although he often repeated that my evaluation would have erroneous results because it was based on what he referred to as "falsities about me." He says that doctors and other staff have been writing false statements about him. Apparently he has not been cooperative with physical therapy (PT). He says that physical therapy (PT) has only seen him once and all they wanted him to do was to show them that he could walk. 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 He denies that he has ever made any suicidal attempts. FAMILY HISTORY: He denies any psychiatric illness in the family. MEDICAL HISTORY: This is as noted above. SUBSTANCE ABUSE: He does admit to very severe alcohol abuse all the way until right before admission to the hospital. MENTAL STATUS EXAMINATION: The patient is alert and oriented times three. He was able to remember three words immediately and then when I tried to have him do serial 7's he started and then indicated that if he continued doing this further that he was not going to remember the three words that I wanted him to remember, but he was able to spell the "world" backwards. He was able to tell me that we are in [place], that Mauri was the president. He repeated "no ifs, ands or buts." He followed simple commands. He was able to name parts of things appropriately. Ultimately, he was able to remember three out of three words in 5 minutes. The patient was overall cooperative, sarcastic throughout. He was verbally spontaneous. There was no formal thought disorder noted. His mood was fine. Affect appropriate to mood. The patient definitely appeared to have some confabulation, as noted above in the history of present illness. He was not suicidal or homicidal. Concentration is fair and memory appeared to be intact. Insight and judgment poor. DIAGNOSES: 1. Alcohol induced major neurocognitive disorder, amnestic confabulatory type. 2. Alcohol use disorder, severe. The patient was able to do the clock with the numbers with appropriate placement of the hands of the clock. There were only two areas where there appeared to be confabulation in this patient. The patient told me that I had initially told him that I was "Captain so and so." Of course, I had introduced myself as Dr. Humphrey. In addition, he then became very confused stating that in his home he had a calendar and he had been through the whole month of November and and when he flipped to the next month it was the of November again and so the november started all over and he says has not come yet for a second time. I also spoke with the nurse that has been following him today and she clarified a few more of the patient's confusion. She says that at the beginning of the week when she had seen him for the first time, he acted very familiar and insisted that she had been his nurse before and in addition he does things like insist that he is not being given coffee and the nurse says that they give him coffee throughout the night. He will suddenly says that he had a refrigerator and a plastic container in his room that he has never had before and apparently there have been times that he has stated that he has been home a few times since he has been in the hospital. RECOMMENDATIONS: At this point, I agree that this patient is most likely having confabulation secondary to chronic alcohol use and as a result of that his insight is very poor. He is not able to cooperate in his placement and I do not believe that it would be safe for him to go home and live independently. DANTE
[2018-11-26 06:00] VITALS: BP 116/79
[2018-11-26] MEDS: FOLIC ACID 1 MG TAB PO SCH (10:40)
[2018-11-26] MEDS: MULTIVITAMINS/MINERALS THERAP 1 TAB PO SCH (10:40)
[2018-11-26] MEDS: PANTOPRAZOLE 40MG TAB (PROTONIX) PO SCH ×2 (10:40→21:24)
[2018-11-26] MEDS: ENOXAPARIN 40 MG/0.4 ML SYRINGE (J1650) SC SCH (10:40)
[2018-11-26] MEDS: THIAMINE 100 MG TAB PO SCH (10:40)
[2018-11-27 06:00] VITALS: BP 117/75
[2018-11-27] MEDS: PANTOPRAZOLE 40MG TAB (PROTONIX) PO SCH ×2 (10:05→21:06)
[2018-11-27] MEDS: ENOXAPARIN 40 MG/0.4 ML SYRINGE (J1650) SC SCH (10:05)
[2018-11-27] MEDS: MULTIVITAMINS/MINERALS THERAP 1 TAB PO SCH (10:05)
[2018-11-27] MEDS: THIAMINE 100 MG TAB PO SCH (10:05)
[2018-11-27] MEDS: FOLIC ACID 1 MG TAB PO SCH (10:05)
[2018-11-28 06:00] VITALS: BP 141/83
[2018-11-28] MEDS: THIAMINE 100 MG TAB PO SCH (09:00)
[2018-11-28] MEDS: ENOXAPARIN 40 MG/0.4 ML SYRINGE (J1650) SC SCH (09:00)
[2018-11-28] MEDS: PANTOPRAZOLE 40MG TAB (PROTONIX) PO SCH ×2 (09:00→19:45)
[2018-11-28] MEDS: FOLIC ACID 1 MG TAB PO SCH (09:00)
[2018-11-28] MEDS: MULTIVITAMINS/MINERALS THERAP 1 TAB PO SCH (09:00)
[2018-11-29 06:00] VITALS: BP 143/84
[2018-11-29 06:44] LABS: HEMATOCRIT 30.3 % (42.0-52.0); HEMOGLOBIN 9.9 g/dl (13.5-17.5); MEAN CORPUSCULAR HEMOGLOBIN 32.5 pg (27.0-33.0); MEAN CORPUSCULAR HGB CONC 32.7 g/dl (32.0-36.5); MEAN CORPUSCULAR VOLUME 99.3 fl (80.0-96.0); PLATELET COUNT, AUTOMATED 177 10^3/uL (150-450); RED BLOOD COUNT 3.05 10^6/uL (4.30-6.10); WHITE BLOOD COUNT 4.8 10^3/uL (4.0-10.0)
[2018-11-29 06:59] LABS: BLOOD UREA NITROGEN 10 MG/DL (7-18); CALCIUM LEVEL 8.5 MG/DL (8.5-10.1); CARBON DIOXIDE LEVEL 26 MEQ/L (21-32); CHLORIDE LEVEL 106 MEQ/L (98-107); CREATININE FOR GFR 0.85 MG/DL (0.70-1.30); GLOMERULAR FILTRATION RATE > 60.0 (>56); GLUCOSE, FASTING 200 MG/DL (70-100); POTASSIUM SERUM 3.9 MEQ/L (3.5-5.1); SODIUM LEVEL 140 MEQ/L (136-145)
[2018-11-29] MEDS: MULTIVITAMINS/MINERALS THERAP 1 TAB PO SCH (10:11)
[2018-11-29] MEDS: ENOXAPARIN 40 MG/0.4 ML SYRINGE (J1650) SC SCH (10:11)
[2018-11-29] MEDS: FOLIC ACID 1 MG TAB PO SCH (10:11)
[2018-11-29] MEDS: PANTOPRAZOLE 40MG TAB (PROTONIX) PO SCH ×2 (10:11→21:12)
[2018-11-29] MEDS: THIAMINE 100 MG TAB PO SCH (10:11)
[2018-11-30 06:00] VITALS: BP 122/82
[2018-11-30] MEDS: PANTOPRAZOLE 40MG TAB (PROTONIX) PO SCH ×2 (08:58→20:08)
[2018-11-30] MEDS: FOLIC ACID 1 MG TAB PO SCH (08:58)
[2018-11-30] MEDS: MULTIVITAMINS/MINERALS THERAP 1 TAB PO SCH (08:58)
[2018-11-30] MEDS: THIAMINE 100 MG TAB PO SCH (08:58)
[2018-11-30] MEDS: ENOXAPARIN 40 MG/0.4 ML SYRINGE (J1650) SC SCH (08:59)
[2018-12-01 06:00] VITALS: BP 123/82
[2018-12-01] MEDS: PANTOPRAZOLE 40MG TAB (PROTONIX) PO SCH ×2 (08:21→20:47)
[2018-12-01] MEDS: THIAMINE 100 MG TAB PO SCH (08:21)
[2018-12-01] MEDS: ENOXAPARIN 40 MG/0.4 ML SYRINGE (J1650) SC SCH (08:21)
[2018-12-01] MEDS: MULTIVITAMINS/MINERALS THERAP 1 TAB PO SCH (08:21)
[2018-12-01] MEDS: FOLIC ACID 1 MG TAB PO SCH (08:21)
[2018-12-02 06:00] VITALS: BP 126/80
[2018-12-02] MEDS: MULTIVITAMINS/MINERALS THERAP 1 TAB PO SCH (08:16)
[2018-12-02] MEDS: FOLIC ACID 1 MG TAB PO SCH (08:16)
[2018-12-02] MEDS: PANTOPRAZOLE 40MG TAB (PROTONIX) PO SCH ×2 (08:16→20:00)
[2018-12-02] MEDS: ENOXAPARIN 40 MG/0.4 ML SYRINGE (J1650) SC SCH (08:16)
[2018-12-02] MEDS: THIAMINE 100 MG TAB PO SCH (08:16)
[2018-12-03 06:00] VITALS: BP 123/78
[2018-12-03] MEDS: THIAMINE 100 MG TAB PO SCH (10:48)
[2018-12-03] MEDS: FOLIC ACID 1 MG TAB PO SCH (10:48)
[2018-12-03] MEDS: MULTIVITAMINS/MINERALS THERAP 1 TAB PO SCH (10:48)
[2018-12-03] MEDS: PANTOPRAZOLE 40MG TAB (PROTONIX) PO SCH ×2 (10:48→21:14)
[2018-12-03] MEDS: ENOXAPARIN 40 MG/0.4 ML SYRINGE (J1650) SC SCH (10:49)
[2018-12-04 06:00] VITALS: BP 123/74
[2018-12-04] MEDS: ENOXAPARIN 40 MG/0.4 ML SYRINGE (J1650) SC SCH (09:44)
[2018-12-04] MEDS: THIAMINE 100 MG TAB PO SCH (09:46)
[2018-12-04] MEDS: FOLIC ACID 1 MG TAB PO SCH (09:46)
[2018-12-04] MEDS: PANTOPRAZOLE 40MG TAB (PROTONIX) PO SCH ×2 (09:46→21:30)
[2018-12-04] MEDS: MULTIVITAMINS/MINERALS THERAP 1 TAB PO SCH (09:46)
[2018-12-05 06:00] VITALS: BP 122/74
[2018-12-05] MEDS: ENOXAPARIN 40 MG/0.4 ML SYRINGE (J1650) SC SCH (08:45)
[2018-12-05] MEDS: PANTOPRAZOLE 40MG TAB (PROTONIX) PO SCH ×2 (08:45→21:00)
[2018-12-05] MEDS: FOLIC ACID 1 MG TAB PO SCH (08:45)
[2018-12-05] MEDS: MULTIVITAMINS/MINERALS THERAP 1 TAB PO SCH (08:46)
[2018-12-05] MEDS: THIAMINE 100 MG TAB PO SCH (08:46)
[2018-12-06 06:00] VITALS: BP 106/67
[2018-12-06] MEDS: THIAMINE 100 MG TAB PO SCH (08:49)
[2018-12-06] MEDS: FOLIC ACID 1 MG TAB PO SCH (08:49)
[2018-12-06] MEDS: MULTIVITAMINS/MINERALS THERAP 1 TAB PO SCH (08:49)
[2018-12-06] MEDS: PANTOPRAZOLE 40MG TAB (PROTONIX) PO SCH ×2 (08:49→22:46)
[2018-12-06] MEDS: ENOXAPARIN 40 MG/0.4 ML SYRINGE (J1650) SC SCH (08:50)
[2018-12-06 14:00] VITALS: BP 116/82
[2018-12-07 06:00] VITALS: BP 127/63
[2018-12-07] MEDS: PANTOPRAZOLE 40MG TAB (PROTONIX) PO SCH ×3 (10:03→23:45)
[2018-12-07] MEDS: FOLIC ACID 1 MG TAB PO SCH (10:03)
[2018-12-07] MEDS: THIAMINE 100 MG TAB PO SCH (10:03)
[2018-12-07] MEDS: MULTIVITAMINS/MINERALS THERAP 1 TAB PO SCH (10:03)
[2018-12-07] MEDS: ENOXAPARIN 40 MG/0.4 ML SYRINGE (J1650) SC SCH (10:03)
[2018-12-07 10:39] LABS: HEMOGLOBIN 9.3 g/dl (13.5-17.5); MEAN CORPUSCULAR HEMOGLOBIN 31.2 pg (27.0-33.0); MEAN CORPUSCULAR VOLUME 100.7 fl (80.0-96.0); PLATELET COUNT, AUTOMATED 198 10^3/uL (150-450); RED BLOOD COUNT 2.98 10^6/uL (4.30-6.10); WHITE BLOOD COUNT 4.1 10^3/uL (4.0-10.0)
[2018-12-07 11:04] LABS: ALBUMIN 2.2 GM/DL (3.2-5.2); ALT/SGPT 21 U/L (12-78); BILIRUBIN,TOTAL 0.6 MG/DL (0.2-1.0); BLOOD UREA NITROGEN 10 MG/DL (7-18); CALCIUM LEVEL 8.2 MG/DL (8.5-10.1); CARBON DIOXIDE LEVEL 27 MEQ/L (21-32); CHLORIDE LEVEL 108 MEQ/L (98-107); CREATININE FOR GFR 0.78 MG/DL (0.70-1.30); GLOMERULAR FILTRATION RATE > 60.0 (>56); GLUCOSE, FASTING 146 MG/DL (70-100); MAGNESIUM LEVEL 1.5 MG/DL (1.8-2.4); PHOSPHORUS LEVEL 3.7 MG/DL (2.5-4.9); POTASSIUM SERUM 3.2 MEQ/L (3.5-5.1); SODIUM LEVEL 142 MEQ/L (136-145); TOTAL PROTEIN 5.1 GM/DL (6.4-8.2)
[2018-12-07] MEDS: POTASSIUM CHLORIDE 10 MEQ SR TABLET PO SCH ×2 (12:48→16:20)
[2018-12-07] MEDS: MAGNESIUM OXIDE 400 MG TAB (MAG-OX) PO SCH ×3 (12:49→23:45)
[2018-12-08 06:00] VITALS: BP 109/76
[2018-12-08] MEDS: MAGNESIUM OXIDE 400 MG TAB (MAG-OX) PO SCH ×2 (10:00→19:33)
[2018-12-08] MEDS: MULTIVITAMINS/MINERALS THERAP 1 TAB PO SCH (10:00)
[2018-12-08] MEDS: THIAMINE 100 MG TAB PO SCH (10:00)
[2018-12-08] MEDS: PANTOPRAZOLE 40MG TAB (PROTONIX) PO SCH ×2 (10:00→19:33)
[2018-12-08] MEDS: FOLIC ACID 1 MG TAB PO SCH (10:00)
[2018-12-08] MEDS: ENOXAPARIN 40 MG/0.4 ML SYRINGE (J1650) SC SCH (10:01)
[2018-12-09 06:00] VITALS: BP 121/78
[2018-12-09] MEDS: MAGNESIUM OXIDE 400 MG TAB (MAG-OX) PO SCH ×2 (08:50→21:23)
[2018-12-09] MEDS: FOLIC ACID 1 MG TAB PO SCH (08:50)
[2018-12-09] MEDS: ENOXAPARIN 40 MG/0.4 ML SYRINGE (J1650) SC SCH (08:51)
[2018-12-09] MEDS: THIAMINE 100 MG TAB PO SCH (08:51)
[2018-12-09] MEDS: PANTOPRAZOLE 40MG TAB (PROTONIX) PO SCH ×2 (08:51→21:23)
[2018-12-09] MEDS: MULTIVITAMINS/MINERALS THERAP 1 TAB PO SCH (08:51)
[2018-12-10 06:00] VITALS: BP 132/86
[2018-12-10 06:51] LABS: BLOOD UREA NITROGEN 10 MG/DL (7-18); CALCIUM LEVEL 8.2 MG/DL (8.5-10.1); CARBON DIOXIDE LEVEL 30 MEQ/L (21-32); CHLORIDE LEVEL 104 MEQ/L (98-107); CREATININE FOR GFR 0.71 MG/DL (0.70-1.30); GLOMERULAR FILTRATION RATE > 60.0 (>56); GLUCOSE, FASTING 89 MG/DL (70-100); MAGNESIUM LEVEL 1.6 MG/DL (1.8-2.4); PHOSPHORUS LEVEL 4.3 MG/DL (2.5-4.9); POTASSIUM SERUM 3.6 MEQ/L (3.5-5.1); SODIUM LEVEL 139 MEQ/L (136-145)
[2018-12-10] MEDS: FOLIC ACID 1 MG TAB PO SCH (08:26)
[2018-12-10] MEDS: MULTIVITAMINS/MINERALS THERAP 1 TAB PO SCH (08:26)
[2018-12-10] MEDS: THIAMINE 100 MG TAB PO SCH (08:26)
[2018-12-10] MEDS: ENOXAPARIN 40 MG/0.4 ML SYRINGE (J1650) SC SCH (08:27)
[2018-12-10] MEDS ORDERED: POTASSIUM CHLORIDE 10 MEQ SR TABLET PO ONE (08:30)
[2018-12-10] MEDS: PANTOPRAZOLE 40MG TAB (PROTONIX) PO SCH (08:38)
[2018-12-10] MEDS ORDERED: MAG SULF 1GM/100ML (MAG RUN) 1 GM in IV 1 EA IV SCH (09:00)
[2018-12-10] MEDS: MAGNESIUM OXIDE 400 MG TAB (MAG-OX) PO SCH ×2 (09:10→20:28)
[2018-12-11 06:00] VITALS: BP 141/76
[2018-12-11] MEDS ORDERED: MAGNESIUM OXIDE 400 MG TAB (MAG-OX) PO SCH (09:00)
[2018-12-11] MEDS: ENOXAPARIN 40 MG/0.4 ML SYRINGE (J1650) SC SCH (09:01)
[2018-12-11] MEDS: FOLIC ACID 1 MG TAB PO SCH (09:01)
[2018-12-11] MEDS: PANTOPRAZOLE 40MG TAB (PROTONIX) PO SCH (09:01)
[2018-12-11] MEDS: MULTIVITAMINS/MINERALS THERAP 1 TAB PO SCH (09:01)
[2018-12-11] MEDS: THIAMINE 100 MG TAB PO SCH (09:01)
[2018-12-11] MEDS: MAGNESIUM OXIDE 400 MG TAB (MAG-OX) PO SCH ×2 (09:02→21:52)
[2018-12-12 06:00] VITALS: BP 103/73
[2018-12-12] MEDS: MAGNESIUM OXIDE 400 MG TAB (MAG-OX) PO SCH ×2 (09:26→20:59)
[2018-12-12] MEDS: FOLIC ACID 1 MG TAB PO SCH (09:26)
[2018-12-12] MEDS: PANTOPRAZOLE 40MG TAB (PROTONIX) PO SCH (09:26)
[2018-12-12] MEDS: MULTIVITAMINS/MINERALS THERAP 1 TAB PO SCH (09:26)
[2018-12-12] MEDS: THIAMINE 100 MG TAB PO SCH (09:26)
[2018-12-12] MEDS: ENOXAPARIN 40 MG/0.4 ML SYRINGE (J1650) SC SCH (09:27)
[2018-12-12 16:09] VITALS: BP 126/84
[2018-12-13 08:14] VITALS: BP 138/92
[2018-12-13 08:19] VITALS: BP 148/88
[2018-12-13] MEDS: MULTIVITAMINS/MINERALS THERAP 1 TAB PO SCH (09:00)
[2018-12-13] MEDS: THIAMINE 100 MG TAB PO SCH (09:00)
[2018-12-13] MEDS: ENOXAPARIN 40 MG/0.4 ML SYRINGE (J1650) SC SCH (09:00)
[2018-12-13] MEDS: MAGNESIUM OXIDE 400 MG TAB (MAG-OX) PO SCH ×2 (09:00→20:36)
[2018-12-13] MEDS: PANTOPRAZOLE 40MG TAB (PROTONIX) PO SCH (09:00)
[2018-12-13] MEDS: FOLIC ACID 1 MG TAB PO SCH (09:00)
[2018-12-14 06:00] VITALS: BP 129/90
[2018-12-14] MEDS: PANTOPRAZOLE 40MG TAB (PROTONIX) PO SCH (08:55)
[2018-12-14] MEDS: FOLIC ACID 1 MG TAB PO SCH (08:55)
[2018-12-14] MEDS: THIAMINE 100 MG TAB PO SCH (08:55)
[2018-12-14] MEDS: MAGNESIUM OXIDE 400 MG TAB (MAG-OX) PO SCH ×2 (08:55→20:53)
[2018-12-14] MEDS: ENOXAPARIN 40 MG/0.4 ML SYRINGE (J1650) SC SCH (08:55)
[2018-12-14] MEDS: MULTIVITAMINS/MINERALS THERAP 1 TAB PO SCH (08:55)
[2018-12-15 06:00] VITALS: BP 125/89
[2018-12-15] MEDS: MULTIVITAMINS/MINERALS THERAP 1 TAB PO SCH (13:03)
[2018-12-15] MEDS: MAGNESIUM OXIDE 400 MG TAB (MAG-OX) PO SCH ×2 (13:03→20:46)
[2018-12-15] MEDS: THIAMINE 100 MG TAB PO SCH (13:03)
[2018-12-15] MEDS: PANTOPRAZOLE 40MG TAB (PROTONIX) PO SCH (13:03)
[2018-12-15] MEDS: FOLIC ACID 1 MG TAB PO SCH (13:03)
[2018-12-15] MEDS: ENOXAPARIN 40 MG/0.4 ML SYRINGE (J1650) SC SCH (13:04)
[2018-12-16 06:00] VITALS: BP 105/59
[2018-12-16 06:45] LABS: HEMATOCRIT 34.9 % (42.0-52.0); HEMOGLOBIN 10.9 g/dl (13.5-17.5); MEAN CORPUSCULAR HEMOGLOBIN 31.3 pg (27.0-33.0); MEAN CORPUSCULAR HGB CONC 31.2 g/dl (32.0-36.5); MEAN CORPUSCULAR VOLUME 100.3 fl (80.0-96.0); PLATELET COUNT, AUTOMATED 236 10^3/uL (150-450); RED BLOOD COUNT 3.48 10^6/uL (4.30-6.10); WHITE BLOOD COUNT 5.9 10^3/uL (4.0-10.0)
[2018-12-16 07:04] LABS: BLOOD UREA NITROGEN 10 MG/DL (7-18); CALCIUM LEVEL 8.6 MG/DL (8.5-10.1); CARBON DIOXIDE LEVEL 28 MEQ/L (21-32); CHLORIDE LEVEL 108 MEQ/L (98-107); CREATININE FOR GFR 0.86 MG/DL (0.70-1.30); GLOMERULAR FILTRATION RATE > 60.0 (>56); GLUCOSE, FASTING 83 MG/DL (70-100); PHOSPHORUS LEVEL 5.2 MG/DL (2.5-4.9); POTASSIUM SERUM 3.8 MEQ/L (3.5-5.1); SODIUM LEVEL 142 MEQ/L (136-145)
[2018-12-16] MEDS: THIAMINE 100 MG TAB PO SCH (09:00)
[2018-12-16] MEDS: FOLIC ACID 1 MG TAB PO SCH ×2 (09:00→09:46)
[2018-12-16] MEDS ORDERED: POTASSIUM CHLORIDE 10 MEQ SR TABLET PO ONE (09:00)
[2018-12-16] MEDS: MULTIVITAMINS/MINERALS THERAP 1 TAB PO SCH (09:00)
[2018-12-16] MEDS: MAGNESIUM OXIDE 400 MG TAB (MAG-OX) PO SCH ×2 (09:40→22:55)
[2018-12-16] MEDS: PANTOPRAZOLE 40MG TAB (PROTONIX) PO SCH (09:45)
[2018-12-16] MEDS: ENOXAPARIN 40 MG/0.4 ML SYRINGE (J1650) SC SCH (09:47)
--- NOTE | 2018-12-16 17:07 | IPNPDOC ---
Date Seen The patient was seen on 12/16/18. Progress Note SUBJECTIVE: 58-year-old male with history of alcoholism, pancreatitis, hemorrhagic CVA, was admitted over a month ago. His hospitalization has been prolonged due to placement issues, patient is unable to make decisions, but refuses to go to rehabilitation, patient has significant difficulties with confabulation. He is overall stable, comfortable in bed, tolerating diet, without any complaints, but reports that he is not getting appropriate medical care that he deserves. He is requiring a one-to-one. 12/16/2018 Patient comfortable in bed, unhappy about not being able to go home, unhappy wi th his care at the hospital at this time along with treatment by medical staff. He is intermittently compliant with medication and blood work. He does not have any medical complaints at this time, continues to wait for appropriate placement. OBJECTIVE Patient refused to be examined today LABORATORY DATA, IMAGING STUDIES, MICROBIOLOGY: Please see below. DVT prophylaxis ordered?: Yes ASSESSMENT AND PLAN: 58-year-old male with history of alcoholism, cirrhosis, hemorrhagic CVA with prolonged hospitalization due to placement issues. PROBLEMS: 1. Cirrhosis. History of alcohol use, vitamin deficiency. Patient confabulating. Received significant vitamin supplementation including thiamine, A, B12, folic acid, multivitamins. 2. Hemorrhagic CVA:, Stable on recent imaging, continue medical management. 3. Placement:. Patient was accepted for placement in an outpatient facility but patient refused to leave, geriatric social work professor arranging alternative means that patient is agreeable to. 4. Hypomagnesemia/hypokalemia. Urine studies ordered to assess for renal wasting. DVT prophylaxis: Lovenox GI prophylaxis: Protonix VS, I&O, 24H, Fishbone Vital Signs/I&O Vital Signs Date Time Temp Pulse Resp B/P (MAP) Pulse Ox O2 Delivery O2 Flow Rate FiO2 12/16/18 06:00 98.4 82 20 105/59 (74) 96 12/13/18 08:14 Room Air I&O- Last 24 Hours up to 6 AM 12/16/18 06:00 Intake Total 2040 ml Balance 2040 ml Laboratory Data 24H LABS Laboratory Tests 2 12/16/18 06:26: Nucleated Red Blood Cells % (auto) 0.0, Anion Gap 6L, Glomerular Filtration Rate > 60.0, Calcium Level 8.6, Phosphorus Level 5.2H, Magnesium Level 2.0 CBC/BMP Laboratory Tests 12/16/18 06:26 ANASTASIA SINGH MD Dec 16, 2018 17:07
[2018-12-17 06:00] VITALS: BP 101/65
[2018-12-17] MEDS: ENOXAPARIN 40 MG/0.4 ML SYRINGE (J1650) SC SCH (09:58)
[2018-12-17] MEDS: FOLIC ACID 1 MG TAB PO SCH (09:59)
[2018-12-17] MEDS: MULTIVITAMINS/MINERALS THERAP 1 TAB PO SCH (09:59)
[2018-12-17] MEDS: PANTOPRAZOLE 40MG TAB (PROTONIX) PO SCH (09:59)
[2018-12-17] MEDS: THIAMINE 100 MG TAB PO SCH (09:59)
[2018-12-18 06:00] VITALS: BP 123/84
[2018-12-18] MEDS: MULTIVITAMINS/MINERALS THERAP 1 TAB PO SCH (08:40)
[2018-12-18] MEDS: ENOXAPARIN 40 MG/0.4 ML SYRINGE (J1650) SC SCH (08:40)
[2018-12-18] MEDS: PANTOPRAZOLE 40MG TAB (PROTONIX) PO SCH (08:40)
[2018-12-18] MEDS: THIAMINE 100 MG TAB PO SCH (08:41)
[2018-12-18] MEDS: FOLIC ACID 1 MG TAB PO SCH (08:41)
[2018-12-18 12:40] LABS: CREATININE,RANDOM URINE 51.6 MG/DL; POTASSIUM RANDOM URINE 37.9 MEQ/L
[2018-12-19 06:00] VITALS: BP 115/60
[2018-12-19] MEDS: FOLIC ACID 1 MG TAB PO SCH (08:39)
[2018-12-19] MEDS: PANTOPRAZOLE 40MG TAB (PROTONIX) PO SCH (08:39)
[2018-12-19] MEDS: ENOXAPARIN 40 MG/0.4 ML SYRINGE (J1650) SC SCH (08:39)
[2018-12-19] MEDS: THIAMINE 100 MG TAB PO SCH (08:39)
[2018-12-19] MEDS: MULTIVITAMINS/MINERALS THERAP 1 TAB PO SCH (08:39)
[2018-12-20] MEDS: PANTOPRAZOLE 40MG TAB (PROTONIX) PO SCH ×2 (09:00→09:20)
[2018-12-20] MEDS: FOLIC ACID 1 MG TAB PO SCH ×2 (09:00→09:20)
[2018-12-20] MEDS: THIAMINE 100 MG TAB PO SCH ×2 (09:00→09:20)
[2018-12-20] MEDS: MULTIVITAMINS/MINERALS THERAP 1 TAB PO SCH ×2 (09:00→09:20)
[2018-12-20] MEDS: ENOXAPARIN 40 MG/0.4 ML SYRINGE (J1650) SC SCH (09:20)
[2018-12-20] MEDS: MAGNESIUM OXIDE 400 MG TAB (MAG-OX) PO SCH ×2 (09:20→20:03)
[2018-12-21 06:00] VITALS: BP 125/88
[2018-12-21] MEDS: PANTOPRAZOLE 40MG TAB (PROTONIX) PO SCH (11:08)
[2018-12-21] MEDS: MAGNESIUM OXIDE 400 MG TAB (MAG-OX) PO SCH ×2 (11:08→20:05)
[2018-12-21] MEDS: THIAMINE 100 MG TAB PO SCH (11:09)
[2018-12-21] MEDS: ENOXAPARIN 40 MG/0.4 ML SYRINGE (J1650) SC SCH (11:09)
[2018-12-22 06:00] VITALS: BP 133/71
[2018-12-22] MEDS: ENOXAPARIN 40 MG/0.4 ML SYRINGE (J1650) SC SCH (09:00)
[2018-12-22] MEDS: THIAMINE 100 MG TAB PO SCH (09:00)
[2018-12-22] MEDS: PANTOPRAZOLE 40MG TAB (PROTONIX) PO SCH (09:00)
[2018-12-22] MEDS: MAGNESIUM OXIDE 400 MG TAB (MAG-OX) PO SCH ×2 (09:00→19:45)
[2018-12-23 06:00] VITALS: BP 123/86
[2018-12-23] MEDS: ENOXAPARIN 40 MG/0.4 ML SYRINGE (J1650) SC SCH (07:57)
[2018-12-23] MEDS: MAGNESIUM OXIDE 400 MG TAB (MAG-OX) PO SCH ×2 (09:00→20:39)
[2018-12-23] MEDS: PANTOPRAZOLE 40MG TAB (PROTONIX) PO SCH (10:21)
[2018-12-23] MEDS: THIAMINE 100 MG TAB PO SCH (10:21)
[2018-12-24 06:00] VITALS: BP 102/64
[2018-12-24] MEDS: PANTOPRAZOLE 40MG TAB (PROTONIX) PO SCH (11:38)
[2018-12-24] MEDS: MAGNESIUM OXIDE 400 MG TAB (MAG-OX) PO SCH ×2 (11:38→20:00)
[2018-12-24] MEDS: THIAMINE 100 MG TAB PO SCH (11:38)
[2018-12-24] MEDS: ENOXAPARIN 40 MG/0.4 ML SYRINGE (J1650) SC SCH (11:39)
[2018-12-25 06:00] VITALS: BP 109/66
[2018-12-25] MEDS: ENOXAPARIN 40 MG/0.4 ML SYRINGE (J1650) SC SCH (08:07)
[2018-12-25] MEDS: PANTOPRAZOLE 40MG TAB (PROTONIX) PO SCH (08:07)
[2018-12-25] MEDS: MAGNESIUM OXIDE 400 MG TAB (MAG-OX) PO SCH ×2 (08:07→19:55)
[2018-12-25] MEDS: THIAMINE 100 MG TAB PO SCH (08:07)
[2018-12-26 06:00] VITALS: BP 104/58
[2018-12-26] MEDS: THIAMINE 100 MG TAB PO SCH (08:17)
[2018-12-26] MEDS: ENOXAPARIN 40 MG/0.4 ML SYRINGE (J1650) SC SCH (08:17)
[2018-12-26] MEDS: MAGNESIUM OXIDE 400 MG TAB (MAG-OX) PO SCH ×2 (08:17→20:37)
[2018-12-26] MEDS: PANTOPRAZOLE 40MG TAB (PROTONIX) PO SCH (08:17)
--- NOTE | 2018-12-26 10:38 | IPNPDOC ---
Text Note Date of Service The patient was seen on 12/26/18. NOTE SUBJECTIVE: Patient seen and examined at bedside. No acute overnight events reported. Patient has no medical complaints. However, he is very unhappy with his plan of care, specifically with regards to placement. It was difficult to discuss with him details regarding his issues with placement. Patient easily agitated and argumentative. Objective: General: NAD, lying comfortably in bed HEENT: NC/AT, EOMI Lungs: CTA B/L Heart: +S1S2, RRR Abd: soft, NT, +BS Ext: no edema Psych: flat affect, AAOx3 ASSESSMENT: 58-year-old male with history of alcoholism, cirrhosis, hemorrhagic CVA with prolonged hospitalization due to placement issues. PLAN: 1. Cirrhosis. History of alcohol use, vitamin deficiency. continue vitamine supplementation 2. Hemorrhagic CVA - stable on recent imaging, continue medical management. 3. Placement: - Patient was accepted for placement in an outpatient facility but patient refused to leave, social work program coordinator arranging alternative options. 4. DVT prophylaxis: Lovenox Dispo: pending placement, patient is ALC status VS,Fishbone, I+O VS, Fishbone, I+O Vital Signs Date Time Temp Pulse Resp B/P (MAP) Pulse Ox O2 Delivery O2 Flow Rate FiO2 12/26/18 06:00 98.9 80 15 104/58 (73) 96 Room Air I&O- Last 24 Hours up to 6 AM 12/26/18 06:00 Intake Total 2360 ml Balance 2360 ml ESTEBAN ANNA MD Dec 26, 2018 10:38
[2018-12-27 06:00] VITALS: BP 145/68
[2018-12-27] MEDS: PANTOPRAZOLE 40MG TAB (PROTONIX) PO SCH (08:16)
[2018-12-27] MEDS: ENOXAPARIN 40 MG/0.4 ML SYRINGE (J1650) SC SCH (08:16)
[2018-12-27] MEDS: THIAMINE 100 MG TAB PO SCH (08:16)
[2018-12-27] MEDS: MAGNESIUM OXIDE 400 MG TAB (MAG-OX) PO SCH ×2 (08:16→20:40)
--- NOTE | 2018-12-27 12:42 | CR ---
DATE OF CONSULTATION: 12/26/2018 HISTORY OF PRESENT ILLNESS: This is a 58-year-old white male with a chronic history of several alcoholism. He has a history of pancreatitis and hemorrhagic cerebrovascular accident (CVA). Medical staff requested another psychiatric evaluation apparently per the nursing home social worker. Patient was seen by Dr. Humphrey on 11/25/2018 for a very thorough psychiatric assessment. Please be referred to her consultation report. Patient has a history of severe memory impairment with confabulation. Patient has a Wernicke-Korsakoff presentation. Patient is demanding to return home. He is unwilling to provide any background information on his living arrangements. He becomes quite agitated when I try to pursue the psychiatric interview. He clearly remembers his consultation with Dr. Humphrey and refuses to cooperate with any further psychiatric evaluation. MENTAL STATUS EXAMINATION: Patient appears alert but is not cooperative. He is somewhat verbal briefly. He is then quite irritable and hostile. He then refuses to answer any questions. He becomes mute preventing me from performing the typical mental status examination. DIAGNOSIS: Alcohol induced major neural cognitive disorder, amnestic confabulatory type. Alcohol use disorder, severe. PLAN: Given the patient's lack of cooperation, I would defer to the thorough psychiatric evaluation from Dr. Humphrey dated 11/25/2018. I would concur with her opinion that the patient is not able to care for himself independently due to his severe memory issue. [facility]
[2018-12-28] MEDS: PANTOPRAZOLE 40MG TAB (PROTONIX) PO SCH (09:30)
[2018-12-28] MEDS: MAGNESIUM OXIDE 400 MG TAB (MAG-OX) PO SCH ×2 (09:30→20:36)
[2018-12-28] MEDS: THIAMINE 100 MG TAB PO SCH (09:30)
[2018-12-28] MEDS: ENOXAPARIN 40 MG/0.4 ML SYRINGE (J1650) SC SCH (09:33)
[2018-12-29 06:00] VITALS: BP 142/89
[2018-12-29] MEDS: ENOXAPARIN 40 MG/0.4 ML SYRINGE (J1650) SC SCH ×2 (09:00→18:24)
[2018-12-29] MEDS: PANTOPRAZOLE 40MG TAB (PROTONIX) PO SCH (09:00)
[2018-12-29] MEDS: MAGNESIUM OXIDE 400 MG TAB (MAG-OX) PO SCH ×2 (09:45→18:24)
[2018-12-30 06:00] VITALS: BP 134/73
[2018-12-30] MEDS: PANTOPRAZOLE 40MG TAB (PROTONIX) PO SCH (09:29)
[2018-12-30] MEDS: ENOXAPARIN 40 MG/0.4 ML SYRINGE (J1650) SC SCH (09:30)
[2018-12-30] MEDS: MAGNESIUM OXIDE 400 MG TAB (MAG-OX) PO SCH ×2 (09:30→20:20)
[2018-12-31 06:00] VITALS: BP 128/83
[2018-12-31 06:02] LABS: HEMATOCRIT 33.4 % (42.0-52.0); HEMOGLOBIN 10.6 g/dl (13.5-17.5); MEAN CORPUSCULAR HEMOGLOBIN 30.9 pg (27.0-33.0); MEAN CORPUSCULAR HGB CONC 31.7 g/dl (32.0-36.5); MEAN CORPUSCULAR VOLUME 97.4 fl (80.0-96.0); PLATELET COUNT, AUTOMATED 190 10^3/uL (150-450); RED BLOOD COUNT 3.43 10^6/uL (4.30-6.10); WHITE BLOOD COUNT 5.5 10^3/uL (4.0-10.0)
[2018-12-31 06:32] LABS: BLOOD UREA NITROGEN 12 MG/DL (7-18); CALCIUM LEVEL 9.3 MG/DL (8.5-10.1); CARBON DIOXIDE LEVEL 28 MEQ/L (21-32); CHLORIDE LEVEL 107 MEQ/L (98-107); CREATININE FOR GFR 0.84 MG/DL (0.70-1.30); GLOMERULAR FILTRATION RATE > 60.0 (>56); GLUCOSE, FASTING 89 MG/DL (70-100); MAGNESIUM LEVEL 1.9 MG/DL (1.8-2.4); POTASSIUM SERUM 3.9 MEQ/L (3.5-5.1); SODIUM LEVEL 140 MEQ/L (136-145)
[2018-12-31] MEDS: PANTOPRAZOLE 40MG TAB (PROTONIX) PO SCH (09:11)
[2018-12-31] MEDS: MAGNESIUM OXIDE 400 MG TAB (MAG-OX) PO SCH ×2 (09:11→21:00)
[2018-12-31] MEDS: ENOXAPARIN 40 MG/0.4 ML SYRINGE (J1650) SC SCH (09:12)
[2019-01-01 06:00] VITALS: BP 136/97
[2019-01-01] MEDS: MAGNESIUM OXIDE 400 MG TAB (MAG-OX) PO SCH ×2 (09:00→21:00)
[2019-01-01] MEDS: ENOXAPARIN 40 MG/0.4 ML SYRINGE (J1650) SC SCH (09:00)
[2019-01-01] MEDS: PANTOPRAZOLE 40MG TAB (PROTONIX) PO SCH (09:00)
[2019-01-02 06:00] VITALS: BP 132/95
[2019-01-02] MEDS: MAGNESIUM OXIDE 400 MG TAB (MAG-OX) PO SCH ×2 (08:42→21:33)
[2019-01-02] MEDS: ENOXAPARIN 40 MG/0.4 ML SYRINGE (J1650) SC SCH (08:42)
[2019-01-02] MEDS: PANTOPRAZOLE 40MG TAB (PROTONIX) PO SCH (08:42)
[2019-01-03 06:00] VITALS: BP 135/91
[2019-01-03] MEDS: PANTOPRAZOLE 40MG TAB (PROTONIX) PO SCH (09:52)
[2019-01-03] MEDS: MAGNESIUM OXIDE 400 MG TAB (MAG-OX) PO SCH ×2 (09:52→19:35)
[2019-01-03] MEDS: ENOXAPARIN 40 MG/0.4 ML SYRINGE (J1650) SC SCH (09:52)
[2019-01-04 06:00] VITALS: BP 142/90
[2019-01-04] MEDS: MAGNESIUM OXIDE 400 MG TAB (MAG-OX) PO SCH ×2 (09:25→20:17)
[2019-01-04] MEDS: PANTOPRAZOLE 40MG TAB (PROTONIX) PO SCH (09:25)
[2019-01-04] MEDS: ENOXAPARIN 40 MG/0.4 ML SYRINGE (J1650) SC SCH (09:25)
[2019-01-05 06:00] VITALS: BP 123/79
[2019-01-05] MEDS: PANTOPRAZOLE 40MG TAB (PROTONIX) PO SCH (08:13)
[2019-01-05] MEDS: MAGNESIUM OXIDE 400 MG TAB (MAG-OX) PO SCH ×2 (08:13→19:49)
[2019-01-05] MEDS: ENOXAPARIN 40 MG/0.4 ML SYRINGE (J1650) SC SCH (08:13)
[2019-01-06 06:00] VITALS: BP 135/85
[2019-01-06] MEDS: MAGNESIUM OXIDE 400 MG TAB (MAG-OX) PO SCH ×2 (08:44→20:00)
[2019-01-06] MEDS: PANTOPRAZOLE 40MG TAB (PROTONIX) PO SCH (08:44)
[2019-01-06] MEDS: ENOXAPARIN 40 MG/0.4 ML SYRINGE (J1650) SC SCH ×2 (08:45→08:51)
[2019-01-07 06:00] VITALS: BP 139/90
[2019-01-07] MEDS: MAGNESIUM OXIDE 400 MG TAB (MAG-OX) PO SCH ×2 (10:02→21:00)
[2019-01-07] MEDS: PANTOPRAZOLE 40MG TAB (PROTONIX) PO SCH (10:02)
[2019-01-07] MEDS: ENOXAPARIN 40 MG/0.4 ML SYRINGE (J1650) SC SCH (10:03)
[2019-01-08] MEDS: MAGNESIUM OXIDE 400 MG TAB (MAG-OX) PO SCH ×2 (09:32→20:24)
--- NOTE | 2019-01-09 09:01 | IPNPDOC ---
Date Seen The patient was seen on 01/09/19. Progress Note SUBJECTIVE: 58-year-old male with history of alcoholism, pancreatitis, hemorrhagic CVA, was admitted over a month ago. His hospitalization has been prolonged due to placement issues, patient is unable to make decisions, but refuses to go to rehabilitation, patient has significant difficulties with confabulation. He is overall stable, comfortable in bed, tolerating diet, without any complaints, but reports that he is not getting appropriate medical care that he deserves. He is requiring a one-to-one. 01/09/2019 Patient comfortable, reassessed by psychiatry and still not cleared to be home alone, one-to-one removed, patient reports issues with ingrown/overgrown nails, no other complaints. PHYSICAL EXAMINATION: VITAL SIGNS: Please see below. GENERAL: No distress HEENT: Normocephalic, atraumatic, moist mucous membranes NECK: Supple CARDIOVASCULAR EXAMINATION: S1, S2, no murmurs RESPIRATORY EXAMINATION: Clear to auscultation, no wheezing ABDOMINAL EXAMINATION: Soft, nontender, nondistended, positive bowel sounds EXTREMITIES: Range of motion intact SKIN: No rash NEUROLOGICAL EXAMINATION: no focal deficits PSYCHIATRIC EXAMINATION: Calm and cooperative LABORATORY DATA, IMAGING STUDIES, MICROBIOLOGY: Please see below. DVT prophylaxis ordered?: No ASSESSMENT AND PLAN: 58-year-old male with history of alcoholism, cirrhosis, hemorrhagic CVA with prolonged hospitalization due to placement issues. PROBLEMS: 1. Cirrhosis. History of alcohol use, vitamin deficiency. Patient confabulating, evaluated by psychiatry, not safe to be alone at home. Received significant vitamin supplementation including thiamine, A, B12, folic acid, multivitamins. 2. Hemorrhagic CVA: Stable on recent imaging, continue medical management. 3. Placement:. Patient was accepted for placement in an outpatient facility but patient refused to leave, pediatric social worker arranging alternative means that patient is agreeable to. 4. Ingrown nail: Podiatry consulted VS, I&O, 24H, Fishbone Vital Signs/I&O Vital Signs Date Time Temp Pulse Resp B/P (MAP) Pulse Ox O2 Delivery O2 Flow Rate FiO2 01/07/19 06:00 97.3 84 16 139/90 (106) 99 Room Air I&O- Last 24 Hours up to 6 AM 01/09/19 06:00 Intake Total 2160 ml Balance 2160 ml ANASTASIA SINGH MD Jan 09, 2019 09:01
[2019-01-09] MEDS: MAGNESIUM OXIDE 400 MG TAB (MAG-OX) PO SCH ×2 (09:44→20:30)
[2019-01-10 06:00] VITALS: BP 142/93
[2019-01-10] MEDS: MAGNESIUM OXIDE 400 MG TAB (MAG-OX) PO SCH ×2 (10:35→20:02)
--- NOTE | 2019-01-10 12:13 | CR ---
DATE OF CONSULTATION: 01/10/2019 REASON FOR CONSULTATION: Painful ingrowing nails. Erwin Castillo is a 58-year-old male who is seen for painful ingrowing toenails. He states these are causing him discomfort and affecting his ability to walk. PAST MEDICAL HISTORY: Significant for alcohol abuse with alcoholic seizures and thrombocytopenia. PAST SURGICAL HISTORY: Includes carpal tunnel. ALLERGIES: CEFTRIAXONE. SOCIAL HISTORY: Denies smoking. Positive for alcohol use. PHYSICAL EXAMINATION: Lower Extremity Examination: Pedal pulses are palpable. There is elongated, dystrophic toenails with ingrowing nails with pain. ASSESSMENT: Patient with painful ingrowing toenails. TREATMENT: The nails are debrided. He should followup outpatient as needed for foot care.
[2019-01-10 14:00] VITALS: BP 142/97
[2019-01-11 06:00] VITALS: BP 122/78
[2019-01-11] MEDS: MAGNESIUM OXIDE 400 MG TAB (MAG-OX) PO SCH ×2 (10:07→20:07)
[2019-01-12 06:00] VITALS: BP 132/83
[2019-01-12 09:18] VITALS: BP 150/88
[2019-01-12] MEDS: MAGNESIUM OXIDE 400 MG TAB (MAG-OX) PO SCH ×2 (09:44→20:26)
[2019-01-13 06:00] VITALS: BP 138/90
[2019-01-13] MEDS: MAGNESIUM OXIDE 400 MG TAB (MAG-OX) PO SCH ×2 (08:36→20:02)
[2019-01-14] MEDS: MAGNESIUM OXIDE 400 MG TAB (MAG-OX) PO SCH ×4 (09:00→20:24)
[2019-01-15] MEDS: MAGNESIUM OXIDE 400 MG TAB (MAG-OX) PO SCH ×2 (08:23→21:50)
[2019-01-16] MEDS: MAGNESIUM OXIDE 400 MG TAB (MAG-OX) PO SCH ×2 (09:00→21:00)
[2019-01-17 05:40] LABS: HEMATOCRIT 39.1 % (42.0-52.0); HEMOGLOBIN 12.3 g/dl (13.5-17.5); MEAN CORPUSCULAR HEMOGLOBIN 30.3 pg (27.0-33.0); MEAN CORPUSCULAR HGB CONC 31.5 g/dl (32.0-36.5); MEAN CORPUSCULAR VOLUME 96.3 fl (80.0-96.0); PLATELET COUNT, AUTOMATED 219 10^3/uL (150-450); RED BLOOD COUNT 4.06 10^6/uL (4.30-6.10); WHITE BLOOD COUNT 4.5 10^3/uL (4.0-10.0)
[2019-01-17 06:00] VITALS: BP 126/76
[2019-01-17 06:06] LABS: ALBUMIN 3.6 GM/DL (3.2-5.2); ALT/SGPT 53 U/L (12-78); BILIRUBIN,TOTAL 0.7 MG/DL (0.2-1.0); BLOOD UREA NITROGEN 14 MG/DL (7-18); CALCIUM LEVEL 9.4 MG/DL (8.5-10.1); CARBON DIOXIDE LEVEL 29 MEQ/L (21-32); CHLORIDE LEVEL 106 MEQ/L (98-107); CREATININE FOR GFR 0.96 MG/DL (0.70-1.30); GLOMERULAR FILTRATION RATE > 60.0 (>56); GLUCOSE, FASTING 101 MG/DL (70-100); MAGNESIUM LEVEL 1.9 MG/DL (1.8-2.4); PHOSPHORUS LEVEL 4.7 MG/DL (2.5-4.9); POTASSIUM SERUM 3.9 MEQ/L (3.5-5.1); SODIUM LEVEL 141 MEQ/L (136-145); TOTAL PROTEIN 7.5 GM/DL (6.4-8.2)
[2019-01-17] MEDS: MAGNESIUM OXIDE 400 MG TAB (MAG-OX) PO SCH ×3 (08:04→19:53)
--- NOTE | 2019-01-17 15:45 | IPNPDOC ---
Date Seen The patient was seen on 01/17/19. Progress Note SUBJECTIVE: 58-year-old male with history of alcoholism, pancreatitis, hemorrhagic CVA, was admitted over a month ago. His hospitalization has been prolonged due to placement issues, patient is unable to make decisions, but refuses to go to rehabilitation, patient has significant difficulties with confabulation. He is overall stable, comfortable in bed, tolerating diet, without any complaints, but reports that he is not getting appropriate medical care that he deserves. He is requiring a one-to-one. 01/09/2019 Patient comfortable, reassessed by psychiatry and still not cleared to be home a lone, one-to-one removed, patient reports issues with ingrown/overgrown nails, no other complaints. 01/18/2019 Patient remains comfortable, tolerating diet, asking to have mechanical soft diet restriction removed, no other complaints. PHYSICAL EXAMINATION: VITAL SIGNS: Please see below. GENERAL: No distress HEENT: Normocephalic, atraumatic, moist mucous membranes NECK: Supple CARDIOVASCULAR EXAMINATION: S1, S2, no murmurs RESPIRATORY EXAMINATION: Clear to auscultation, no wheezing ABDOMINAL EXAMINATION: Soft, nontender, nondistended, positive bowel sounds EXTREMITIES: Range of motion intact SKIN: No rash NEUROLOGICAL EXAMINATION: no focal deficits PSYCHIATRIC EXAMINATION: Calm and cooperative LABORATORY DATA, IMAGING STUDIES, MICROBIOLOGY: Please see below. DVT prophylaxis ordered?: No ASSESSMENT AND PLAN: 58-year-old male with history of alcoholism, cirrhosis, hemorrhagic CVA with prolonged hospitalization due to placement issues. PROBLEMS: 1. Cirrhosis. History of alcohol use, vitamin deficiency. Patient confabulating, evaluated by psychiatry, not safe to be alone at home. Received significant vitamin supplementation including thiamine, vitamin B12, folic acid, multivitamins. 2. Hemorrhagic CVA: Stable on recent imaging, continue medical management. 3. Placement:. Patient was accepted for placement in an outpatient facility but patient refused to leave, child welfare social worker arranging alternative means that patient is agreeable to. 4. Dysphasia. Reassessed previously and started on mechanical soft diet, will ask for reevaluation to see if patient can have regular diet. VS, I&O, 24H, Fishbone Vital Signs/I&O Vital Signs Date Time Temp Pulse Resp B/P (MAP) Pulse Ox O2 Delivery O2 Flow Rate FiO2 01/17/19 06:00 99.5 89 18 126/76 (93) 99 Room Air I&O- Last 24 Hours up to 6 AM 01/17/19 06:00 Intake Total 0 ml Balance 0 ml Laboratory Data 24H LABS Laboratory Tests 2 01/17/19 05:06: Nucleated Red Blood Cells % (auto) 0.0, Anion Gap 6L, Glomerular Filtration Rate > 60.0, Calcium Level 9.4, Phosphorus Level 4.7, Magnesium Level 1.9, Total Bilirubin 0.7, Aspartate Amino Transf (AST/SGOT) 40H, Alanine Aminotransferase (ALT/SGPT) 53, Alkaline Phosphatase 85, Total Protein 7.5, Albumin 3.6, Albumin/Globulin Ratio 0.92L CBC/BMP Laboratory Tests 01/17/19 05:06 ANASTASIA SINGH MD Jan 17, 2019 15:45
[2019-01-18 06:00] VITALS: BP 115/70
[2019-01-18] MEDS: MAGNESIUM OXIDE 400 MG TAB (MAG-OX) PO SCH ×2 (07:48→19:38)
[2019-01-18] MEDS ORDERED: FLUBLOK(EGG FREE)(QUAD)INFLUENZA VACC 0.5ML SYRINGE (90682)18YRS&OLDER IM ONE (15:00)
[2019-01-19 06:00] VITALS: BP 123/85
[2019-01-19] MEDS: MAGNESIUM OXIDE 400 MG TAB (MAG-OX) PO SCH ×2 (07:48→20:52)
--- NOTE | 2019-01-19 13:28 | MHCRPDOC ---
[facility] Consultation Consultation DATE OF CONSULTATION: 01/19/19 CONSULTATION REQUESTED BY: service Date of Service: 01/19/2019 History of Present Illness The patient, a 58-year-old man who has been assessed by Dr. Martinez and Dr. Humphrey previously who had been suffering from likely alcohol-induced delirium on top of chronic alcohol problems, had been initially assessed as having some memory difficulties and there were concerns about a safe discharge. I was asked to see him by the medical team in order to ascertain his capacity to leave against medical advice as he has been treated medically and it has been the recommendation his internal medicine provider that he seek out a mcc or assisted living due to his mild memory problems. He has been independent entirely during his nearly 2 months stay, walking around engaged with staff, john larsen demonstrating some notable staff splitting by buying various gifts for different staff members. He has otherwise demonstrated no concerning behavior for the last several weeks. Interval History When I met with the patient, he was fairly amenable and cooperative. His memory appeared grossly intact as he had talked to me about multiple different events including the previous assessments. The patient does have a significant alcohol history, but reports that he has been thinking of different plans if you were to be allowed to go home as he currently lives independently. He describes different ways he might arranged have friends help him as he currently has [place] benefits. He demonstrated fair amount of insight into the situation and was amenable with my examination of his capacity. Elements of capacity. Communicated consistent choice: The patient does communicate a consistent choice of wanting to return home as he has been quite clear that he does not wish to have mcc care or senior living and wishes to return to his independent living. Communicate relevant information: The patient was able to communicate relevant information about his health condition, laboratory testing and other issues related to his risk of fall as well as asked prudent questions related to his overall risk of fall given his current ambulatory status with no assistance. Ability to abstract information/demonstrate abstract reasoning: The patient was able to demonstrate abstract reasoning as he was able to devise various discha rge plans and come up with a fairly reasonable discharge plan outside of a supportive living environment by engaging different sources supports and other current resources he has as well as potential VA sources he was able to identify. Ability to appreciate the gravity of the situation: The patient is able to appreciate the gravity and risk of a potential fall, but is able to rise in different ways to reduce his risk and how he would act in these situations to protect himself and to decrease his overall risk of mortality. Mental Status Examination General: Well dressed with good hygiene Speech: Spontaneous and fluid Thought processes: Linear and logical MSK: Smooth and coordinated gait, no signs of tremors or involuntary orofacial movements Thought content: Future orientated Abstract reasoning, and computation: Intact Description of associations: Intact Description of abnormal or psychotic thoughts: Denies any suicidal or homicidal ideation. Denies any auditory or visual hallucinations. Does not appear to be responding to internal stimuli. Does not appear to be endorsing any bizarre or paranoid ideation. Judgment: fair Insight: fair Orientation: Alert and orientated 3 Cognition: Grossly normal Recent and remote memory: Intact Attention span and concentration: Intact Fund of knowledge: Adequate Mood: "okay" Affect: Euthymic with a full range Diagnoses Alcohol use disorder, severe. Encephalopathy, resolved. Narcissistic personality traits. Assessment and Plan The patient, a 58-year-old man is seen by myself in follow up as he has been admitted for an excessive amount of time to a medical floor and has been difficult to place due to his refusal to go to a mcc and a capacity consultation as requested in order to determine if he has capacity to leave against medical advice and decline set transfer due to the reported concerns of his internal medicine providers risk of falls. After assessing the patient's capacity as well as his current mental status, he does appear to understand the gravity of the situation and has appear to develop quite a bit of planning and contingency situations demonstrating likely that he has capacity to understand the risks, although it may not be the ideal situation for him with his relatively minor memory deficits to be living fully independently. At this time, there is no cause for me to assume that he does not have capacity given what he does demonstrated to me during my assessment. He has been denying any suicidal and homicidal ideation and has a normal mental status and thus does not meet involuntary criteria for hospitalization and declines voluntary. The patient likely presented much differently earlier in his stay due to encephalopathy secondary to his chronic alcoholism, [facility] which [facility] of his frontal and temporal lobes, although neuropsychological testing would likely be indicated as an outpatient in order to better understand his risks and his potential deficits, but at this time, it's difficult to make the argument that he does not have capacity as he is able to understand the gravity of the situation as well as he is reportedly completely ambulatory per nursing staff and attends all of his needs and has been purchasing gifts, coordinating different complex gifts and even ordering fast food at times further increasing the likelihood that he has the cognitive ability to attend to basic activities of daily living. It's difficult to see any fine memory problems even under discrete testing and only can really be parsed out effectively and officially in neuropsychological testing. Disposition Thursday Vital Signs Vital Signs Date Time Temp Pulse Resp B/P (MAP) Pulse Ox O2 Delivery O2 Flow Rate FiO2 01/19/19 06:00 97.3 82 18 123/85 (98) 99 Room Air Home Medications Current Medications Current Medications Medications (Trade) Dose Ordered Sig/Leah Route PRN Reason Start Time Stop Time Status Last Admin Dose Admin Ciprofloxacin 400 mg/IV Miscellaneous Supplies 200 ml @ 200 mls/hr Q12H IV 10/26/18 10:00 11/01/18 09:23 DC 10/31/18 21:28 Cyanocobalamin (Vitamin B12) 1,000 mcg DAILY PO 10/24/18 09:00 11/22/18 09:50 DC 11/21/18 09:30 Dextrose (Dextrose 50%) 25 ml ASDIRECTED PRN IV SEE LABEL COMMENTS 10/26/18 08:45 12/22/18 10:17 DC Dextrose/Sodium Chloride 1,000 ml @ 60 mls/hr [id number] IV 10/26/18 08:45 10/27/18 08:46 DC 10/26/18 21:30 Dextrose/Sodium Chloride 1,000 ml @ 125 mls/hr Q8H IV 10/25/18 23:30 10/26/18 08:34 DC 10/26/18 00:47 Enoxaparin Sodium (Lovenox) 40 mg DAILY SC 11/03/18 09:00 01/08/19 09:14 DC 01/07/19 10:03 Folic Acid (Folic Acid) 1 mg DAILY PO 10/23/18 09:00 12/20/18 10:03 DC 12/19/18 08:39 Folic Acid (Folic Acid) 1 mg DAILY PO 10/24/18 09:00 Cancel Glucagon (Glucagon) 1 mg ASDIRECTED PRN SC SEE LABEL COMMENTS 10/26/18 08:45 12/22/18 10:17 DC Glucose (Glucose) 16 GM ASDIRECTED PRN PO SEE LABEL COMMENTS 10/26/18 08:45 12/22/18 10:17 DC Home Med (Med Rec Complete!) ASDIRECTED XX 10/22/18 22:15 10/22/18 22:15 DC Lactated Ringer's 1,000 ml @ 150 mls/hr Q6H40M IV 10/28/18 14:45 10/29/18 13:06 DC 10/29/18 13:02 Lactated Ringer's 1,000 ml @ 250 mls/hr Q4H IV 10/23/18 08:30 10/25/18 23:16 DC 10/25/18 22:05 Lorazepam (Ativan) 2 mg ASDIRECTED PRN PO SEE PROTOCOL 10/22/18 22:00 10/26/18 08:34 DC 10/25/18 19:09 Lorazepam (Ativan) 2 mg ASDIRECTED PRN PO SEE PROTOCOL 10/26/18 09:00 11/06/18 08:36 DC 10/26/18 09:19 Magnesium Oxide (Mag-Ox) 400 mg BID PO 10/28/18 09:00 11/23/18 08:27 DC 11/22/18 20:53 Magnesium Oxide (Mag-Ox) 400 mg BID PO 12/07/18 09:00 12/09/18 21:01 DC 12/09/18 21:23 Magnesium Oxide (Mag-Ox) 400 mg BID PO 12/20/18 09:00 01/19/19 07:48 Magnesium Oxide (Mag-Ox) 400 mg DAILY PO 12/11/18 09:00 12/10/18 08:48 DC Magnesium Oxide (Mag-Ox) 800 mg BID PO 12/10/18 09:00 12/16/18 21:01 DC 12/16/18 22:55 Magnesium Sulfate/ Dextrose 1 gm/IV Miscellaneous Supplies 100 ml @ 100 mls/hr 0230,0330 IV 10/26/18 02:30 10/26/18 06:00 DC 10/26/18 04:42 Magnesium Sulfate/ Dextrose 1 gm/IV Miscellaneous Supplies 100 ml @ 100 mls/hr Q1H IV 10/26/18 08:00 10/26/18 09:59 DC 10/26/18 09:19 Magnesium Sulfate/ Dextrose 1 gm/IV Miscellaneous Supplies 100 ml @ 100 mls/hr Q1H IV 12/10/18 09:00 12/10/18 08:48 DC Metronidazole 500 mg/IV Miscellaneous Supplies 100 ml @ 100 mls/hr Q8H IV 10/27/18 16:00 11/01/18 09:23 DC 11/01/18 08:20 Miscellaneous (Unresolved Clarification Entry) SEE LABEL COMMENTS DAILY XX 10/22/18 09:00 10/23/18 10:01 DC Miscellaneous (Unresolved Clarification Entry) SEE LABEL COMMENTS DAILY XX 11/21/18 09:00 11/21/18 10:14 DC Miscellaneous (Unresolved Clarification Entry) SEE LABEL COMMENTS DAILY XX 11/22/18 09:00 11/23/18 07:28 DC Miscellaneous (Unresolved Clarification Entry) SEE LABEL COMMENTS DAILY XX 11/24/18 09:00 11/24/18 09:51 DC Miscellaneous (Unresolved Clarification Entry) SEE LABEL COMMENTS DAILY XX 11/14/18 09:00 11/19/18 18:59 DC 11/15/18 09:00 Miscellaneous (Unresolved Clarification Entry) SEE LABEL COMMENTS DAILY XX 12/27/18 09:00 12/27/18 11:36 DC Miscellaneous (Unresolved Clarification Entry) SEE LABEL COMMENTS DAILY XX 01/07/19 09:00 01/08/19 09:15 DC Miscellaneous (Unresolved Clarification Entry) SEE LABEL COMMENTS DAILY XX 12/16/18 09:00 12/16/18 12:16 DC Multivitamins (Theragram-M) 1 tab DAILY PO 10/23/18 09:00 12/20/18 10:03 DC 12/19/18 08:39 Octreotide Acetate 1200 mcg/ Sodium Chloride 240 ml @ 10 mls/hr Q24H IV 10/22/18 21:45 10/28/18 14:46 DC 10/28/18 06:12 Pantoprazole Sodium (Protonix) 40 mg BID IV 10/23/18 09:00 11/01/18 21:30 DC 11/01/18 08:18 Pantoprazole Sodium (Protonix) 40 mg BID PO 11/01/18 21:00 12/10/18 08:29 DC 12/09/18 21:23 Pantoprazole Sodium (Protonix) 40 mg DAILY PO 12/10/18 09:00 01/08/19 09:15 DC 01/07/19 10:02 Piperacillin Sod/ Tazobactam Sod 3.375 gm/Dextrose 50 ml @ 50 mls/hr Q6H IV 10/23/18 04:00 10/26/18 07:39 DC 10/26/18 03:51 Potassium Chloride 10 meq/ IV Miscellaneous Supplies 100 ml @ 100 mls/hr 0600,0700,0800 IV 10/27/18 06:00 10/27/18 07:51 DC Potassium Chloride 10 meq/ IV Miscellaneous Supplies 100 ml @ 100 mls/hr 0900,1000 IV 10/27/18 09:00 10/27/18 09:00 DC Potassium Chloride (Micro-K Extencaps) 40 meq DAILY PO 10/28/18 09:00 11/23/18 08:27 DC 11/21/18 09:30 Potassium Chloride (Micro-K Extencaps) 40 meq Q4H PO 12/07/18 12:15 12/07/18 16:16 DC 12/07/18 16:20 Sodium Chloride 1,000 ml @ 100 mls/hr Q10H IV 10/28/18 08:45 10/28/18 14:39 DC 10/28/18 12:31 Sodium Chloride 1,000 ml @ 150 mls/hr Q6H40M IV 10/22/18 21:44 10/23/18 10:08 DC 10/23/18 03:50 Sodium Chloride 1,000 ml @ 150 mls/hr Q6H40M IV 10/22/18 21:44 UNV Sodium Chloride 1,000 ml @ 250 mls/hr Q4H IV 10/22/18 21:15 10/22/18 22:43 DC 10/22/18 21:37 Thiamine HCl (Thiamine HCl) 100 mg BID PO 10/22/18 21:00 10/25/18 09:01 DC 10/25/18 09:08 Thiamine HCl (Thiamine HCl) 100 mg DAILY PO 11/02/18 09:00 12/28/18 09:53 DC 12/28/18 09:30 Thiamine HCl (VITAMIN B1 INJection) 100 mg BID IV 10/25/18 21:00 11/01/18 21:30 DC 11/01/18 08:18 Triamcinolone Acetonide (Kenalog 0.1% Ointment) x5days to erythematous patches... BID TOP 10/28/18 09:00 11/02/18 08:59 DC 11/01/18 22:13 Scheduled Cyanocobalamin (Vitamin B-12) (Vitamin B-12) 500 Mcg Tablet, 1,000 MCG PO DAILY Folic Acid (Folic Acid) 1 Mg Tablet, 1 MG PO DAILY Magnesium Oxide (Magnesium Oxide) 400 Mg Tablet, 400 MG PO BID Pantoprazole Sodium (Pantoprazole Sodium) 40 Mg Tablet.dr, 40 MG PO DAILY Allergies Coded Allergies: ceftriaxone (Verified Adverse Reaction, Intermediate, FEELS LIKE "PASSING OUT", 08/17/18) ARLEN FUENTES DO Jan 19, 2019 13:28
[2019-01-19] MEDS ORDERED: MAG400TA PO (14:38)
[2019-01-20 06:00] VITALS: BP 120/73
[2019-01-20] MEDS: MAGNESIUM OXIDE 400 MG TAB (MAG-OX) PO SCH (09:25)
--- NOTE | 2019-01-20 12:36 | DS.PDOC ---
Discharge Summary General Date of Admission Oct 22, 2018 at 21:44 Date of Discharge 01/20/19 Discharge Summary PROCEDURES PERFORMED DURING STAY: None. ADMITTING DIAGNOSES: 1. Acute kidney injury. Alcohol dependence, dehydration, GI bleed, altered mental status. DISCHARGE DIAGNOSES: 1. Acute kidney injury, alcohol dependence, dehydration, GI bleed, altered mental status, cirrhosis, history of hemorrhagic CVA. COMPLICATIONS/CHIEF COMPLAINT: Cabrera,Alcohol Dependence,Dehydration,Gi Bleeding. HISTORY OF PRESENT ILLNESS: Patient is 58 years old male with past mental history of EtOH abuse, alcoholic seizures, thrombocytopenia presented hospital with profound weakness and hypotension. Patient brought to Hospital by police. Patient stated that in the morning he developed syncope after he stood up. Patient was unresponsive for few mins, the police arrived first, they prepared to do a chest compression but patient woke up after sternal rub. After that they brought him to the hospital. In emergency room patient was found to have positive stool for blood. His hemoglobin level was 11.5, lipase level 59. Abdominal CAT scan showed mild focal inflammatory changes seen adjacent to the head of the pancreas. This requires clinical and laboratory evaluation for possible acute pancreatitis, extensive hepatic steatosis. Patient denies fever, chills, nausea, chest pain, shortness of breath, diarrhea. HOSPITAL COURSE: Patient along and prolonged stay in the hospital secondary to alcohol abuse, alcohol, seizure, thrombocytopenia, hypertension, weakness and syncope. Patient initially was treated with IV hydration. PPIs and was started on CIWA. protocol, patient also was seen by psychiatry and initially he was deemed unable to be discharged home, but yesterday again he was revisited by psych patient is alert, oriented 3, in no apparent distress and has been cleared by psychiatry for discharge home on all his current medications. Patient also was diagnosed with cirrhosis during his stay secondary to alcohol abuse and vitamin D deficiency. Patient was found to be confabulating and he was started on vitamin supplementation with thiamine, B12, folic acid and multivitamins. Patient also has a history of hemorrhagic CVA, which is stable on recent MRI and will continue current medical management Patient will be discharged home on all current medication and follow with his PCP in one week . DISCHARGE MEDICATIONS: Please see below. ALLERGIES: Please see below. PHYSICAL EXAMINATION ON DISCHARGE: VITAL SIGNS: Please see below. Patient refused physical examination and medical visit from me on this discharge LABORATORY DATA: Please see below. IMAGING: MRI brain: Evidence of old intracranial hemorrhages affecting the frontal lobes bilaterally in the right temporal and left posterior frontal lobe. No acute intracranial abnormality. PROGNOSIS: Good ACTIVITY: As tolerated. DIET: As tolerated DISCHARGE PLAN: Follow-up with PCP in one week DISPOSITION: 01 Home, Self-Care. DISCHARGE INSTRUCTIONS: 1. As per discharge instructions. ITEMS TO FOLLOWUP ON ON OUTPATIENT: 1. Follow-up with PCP in one week. DISCHARGE CONDITION: Stable. TIME SPENT ON DISCHARGE: 20 minutes. Vital Signs/I&Os Vital Signs Date Time Temp Pulse Resp B/P (MAP) Pulse Ox O2 Delivery O2 Flow Rate FiO2 01/20/19 06:00 98.1 79 18 120/73 (89) 97 Room Air I&O- Last 24 Hours up to 6 AM 01/20/19 06:00 Intake Total 2520 ml Output Total 0 ml Balance 2520 ml Discharge Medications Scheduled Cyanocobalamin (Vitamin B-12) (Vitamin B-12) 500 Mcg Tablet, 1,000 MCG PO DAILY Folic Acid (Folic Acid) 1 Mg Tablet, 1 MG PO DAILY Magnesium Oxide (Magnesium Oxide) 400 Mg Tablet, 400 MG PO BID Pantoprazole Sodium (Pantoprazole Sodium) 40 Mg Tablet.dr, 40 MG PO DAILY Allergies Coded Allergies: ceftriaxone (Verified Adverse Reaction, Intermediate, FEELS LIKE "PASSING OUT", 08/17/18) MINA CORONA MD Jan 20, 2019 12:36
== END 2019-01-20 10:24 | disposition home or self-care (01) | DRG 439 ==
LOC: M ED 18:00 → EDBD 18:00 → M ED INP 21:44 → M PCU 23:42 → M MSPAV 10-28 12:48
PROVIDERS: ADMIT Internal Medicine; ATTEND Internal Medicine
PROC: 0HDRXZZ Extraction of Toe Nail, External Approach (ICD-10-PCS; principal; 2019-01-10)
DX: K85.20 Alcohol induced acute pancreatitis without necrosis or infection (principal); N17.9 Acute kidney failure, unspecified; F10.239 Alcohol dependence with withdrawal, unspecified; D61.818 Other pancytopenia; F10.27 Alcohol dependence with alcohol-induced persisting dementia; I47.2 Ventricular tachycardia; E87.0 Hyperosmolality and hypernatremia; K29.20 Alcoholic gastritis without bleeding; G31.2 Degeneration of nervous system due to alcohol; K70.30 Alcoholic cirrhosis of liver without ascites; E87.6 Hypokalemia; D69.59 Other secondary thrombocytopenia; R53.1 Weakness; I95.9 Hypotension, unspecified; Z88.1 Allergy status to other antibiotic agents; E86.0 Dehydration; E55.9 Vitamin D deficiency, unspecified; F60.81 Narcissistic personality disorder; L60.0 Ingrowing nail; F10.26 Alcohol dependence with alcohol-induced persisting amnestic disorder; R26.0 Ataxic gait; E88.09 Other disorders of plasma-protein metabolism, not elsewhere classified; Z87.820 Personal history of traumatic brain injury

== ENCOUNTER 2019-03-07 10:15 | Inpatient (IN) | payer OTHER ==
[~2019-03-07] VITALS: Ht 185.4 cm; Wt 76.8 kg
[~2019-03-07 10:15] MED LIST changes: +MAG400TA PO; +VITA500T40 PO
[2019-03-07] MEDS ORDERED: CYAN100050 (10:28)
[2019-03-07] MEDS ORDERED: NS 1,000 ML IV ONE ×3 (10:30→13:45)
--- NOTE | 2019-03-07 10:57 | REP ---
Portable chest, single AP view with the patient supine, 10:37 a.m.: Comparison is 10/22/2018. The lung tellez are clear. The cardiac size is normal. The maurice, mediastinum, and skeletal structures are unremarkable. Impression: Negative portable chest. There is no interval change. Electronically Signed by Albin Kaur MD 03/07/2019 10:48 A
--- NOTE | 2019-03-07 11:05 | REP ---
CT BRAIN WITHOUT CONTRAST: CT brain performed without IV contrast and compared to prior study 10/27/2018. There is, again, encephalomalacia in the inferior right frontal and temporal lobes. This is stable. No new hemorrhage is seen. Ventricular size is prominent and unchanged. There is also moderate prominence of cerebral sulci. There is no midline shift or mass effect. Visualized osseous structures appear intact. IMPRESSION: Stable encephalomalacia inferiorly in the right frontal and right temporal lobes. No acute intracranial hemorrhage or other acute finding. Electronically Signed by Albin Rosa MD 03/09/2019 11:40 A
[2019-03-07 11:07] LABS: VENOUS BASE EXCESS -6.4 (-2.0-2.0); VENOUS HCO3 17.9 MEQ/L (23.0-27.0); VENOUS O2 SATURATION 88.9 % (60.0-80.0); VENOUS PARTIAL PRESSURE CO2 31.9 mmHg (38.0-50.0); VENOUS PARTIAL PRESSURE O2 59.9 mmHg (30.0-50.0); VENOUS PH 7.366 UNITS (7.330-7.430); VENOUS STANDARD HCO3 19.1 MEQ/L; VENOUS TOTAL CO2 18.8 MEQ/L (24.0-28.0)
[2019-03-07 11:15] LABS: BASO # 0.1 10^3/uL (0.0-0.2); BASO % 1.3 % (0.0-1.0); EOS # 0.1 10^3/uL (0.0-0.5); EOS % 1.1 % (0.0-3.0); HEMOGLOBIN 13.1 g/dl (13.5-17.5); LYMPH % 21.1 % (24.0-44.0); MEAN CORPUSCULAR HEMOGLOBIN 28.5 pg (27.0-33.0); MEAN CORPUSCULAR HGB CONC 32.8 g/dl (32.0-36.5); MONO # 0.4 10^3/uL (0.0-0.8); MONO % 8.2 % (0.0-5.0); NEUTROPHILS % 63.9 % (36.0-66.0); PLATELET COUNT, AUTOMATED 105 10^3/uL (150-450); WHITE BLOOD COUNT 4.7 10^3/uL (4.0-10.0)
[2019-03-07 11:45] LABS: ACETAMINOPHEN LEVEL < 2.0 UG/ML (10.0-30.0); ALBUMIN 3.8 GM/DL (3.2-5.2); ALT/SGPT 76 U/L (12-78); BILIRUBIN,DIRECT 0.5 MG/DL (0.0-0.2); BLOOD UREA NITROGEN 31 MG/DL (7-18); CALCIUM LEVEL 8.6 MG/DL (8.5-10.1); CARBON DIOXIDE LEVEL 20 MEQ/L (21-32); CHLORIDE LEVEL 96 MEQ/L (98-107); CK-MB VALUE MASS < 1.0 NG/ML (<3.6); CPK CREATINE PHOSPHOKINASE 37 U/L (39-308); CREATININE FOR GFR 0.96 MG/DL (0.70-1.30); ETHYL ALCOHOL (ETHANOL) 0.265 % (0.000-0.010); GLOMERULAR FILTRATION RATE > 60.0 (>56); GLUCOSE, FASTING 69 MG/DL (70-100); POTASSIUM SERUM 3.3 MEQ/L (3.5-5.1); SALICYLATE LEVEL 1.8 MG/DL (5.0-30.0); SODIUM LEVEL 138 MEQ/L (136-145); THYROID STIMULATING HORMONE 0.997 uIU/ML (0.358-3.740); TOTAL PROTEIN 7.3 GM/DL (6.4-8.2); TROPONIN I < 0.02 NG/ML (< 0.10)
[2019-03-07 12:46] LABS: OSMOLALITY SERUM 372 MOSM/KG (275-295)
[2019-03-07 17:27] LABS: VITAMIN B12 LEVEL 436 PG/ML (247-911)
--- NOTE | 2019-03-07 18:45 | ECGEPIP ---
[facility] - ED Test Date: 2019-03-07 Pat Name: KAR REYES Department: Room: - Gender: Male Banking Representative: susana : [id number] Requested By: WONG Schreiber Order Number: [id number] Reading MD: Stu Champion Measurements Intervals [place] Rate: 88 P: 68 ND: 108 QRS: 59 QRSD: 121 T: 60 QT: 409 QTc: 496 Interpretive Statements SINUS RHYTHM WITH SHORT ND INTERVAL MODERATE INTRAVENTRICULAR CONDUCTION DELAY SIMILAR TO 10/22/18 Electronically Signed on 03-07-2019 18:45:38 EST by Stu Champion
[2019-03-07] MEDS ORDERED: LISI10TA4 PO (19:12)
[2019-03-07] MEDS ORDERED: ACET-683 PO (19:12)
[2019-03-07 20:57] LABS: AMPHETAMINES LEVEL URINE NEGATIVE (NEGATIVE); BARBITURATES URINE NEGATIVE (NEGATIVE); BENZODIAZEPINES URINE NEGATIVE (NEGATIVE); CANNABINOIDS URINE NEGATIVE (NEGATIVE); COCAINE METABOLITE URINE NEGATIVE (NEGATIVE); METHADONE URINE NEGATIVE (NEGATIVE); OPIATES URINE NEGATIVE (NEGATIVE); PHENCYCLIDINE URINE NEGATIVE (NEGATIVE)
[2019-03-07] MEDS ORDERED: NS 1,000 ML IV SCH (21:00)
[2019-03-07] MEDS ORDERED: ACETAMINOPHEN TAB 650MG DOSE (2X325MG) PO PRN (21:00)
[2019-03-07] MEDS ORDERED: ENOXAPARIN 40 MG/0.4 ML SYRINGE (J1650) SC SCH (21:00)
[2019-03-07] MEDS: THIAMINE 100 MG TAB PO SCH (21:44)
[2019-03-07] MEDS ORDERED: POTASSIUM CHLORIDE 10 MEQ SR TABLET PO ONE (22:00)
[2019-03-07 22:06] VITALS: BP 138/83
[2019-03-07 22:25] VITALS: BP 138/83
[2019-03-07] MEDS: LORazepam 2 MG TAB PO PRN (22:37)
[2019-03-07] MEDS: ONDANSETRON 4MG/2ML VIAL (J2405) IV PRN (23:22)
[2019-03-08] VITALS (10 sets, daily range): BP systolic 115–134; BP diastolic 75–87
[2019-03-08] MEDS ORDERED: DEXTROSE 50% 50 ML SYRINGE IV PRN (01:30)
[2019-03-08] MEDS ORDERED: GLUCOSE 4 GM CHEW TABLET PO PRN (01:30)
[2019-03-08] MEDS ORDERED: GLUCAGON FOR INJ 1 MG VIAL (J1610) SC PRN (01:30)
--- NOTE | 2019-03-08 01:50 | HPEPDOC ---
General Date of Admission Mar 07, 2019 at 20:46 Date of Service: Mar 07, 2019 Attending Physician: GARETH CASTLE MD Chief Complaint The patient is a 58-year-old male admitted with a reason for visit of Alcohol Intoxication, Alcoholic Ketosis,Dehydratio. Source: Patient Exam Limitations: Clinical conditions Severity: Severe Associated Symptoms: Other (thirsty and disoriented) History of Present Illness 58-year-old man with alcohol use disorder with prior admissions for withdrawal c/b DTs and GIB who called EMS after he noticed that he was incredibly thirsty at home and was sometimes becoming disoriented. He was otherwise alone at home and reports his last drink to have been yesterday afternoon, without any chest pain, palpitations, falls, dysuria, nausea, vomiting, diarrhea. In the emergency room, patient was episodically confused but otherwise a fair historian. He was otherwise hemodynamically stable and afebrile with initial workup notable for hypoK to 3.3, lactic acidosis to 4, ketouria and hypoglycemia, as well as transaminitis to AST 161, ALT 76, and elevated EtOH to 0.265. He was hypovolemic on exam and given 3L NS in the ED and admitted to medicine for dehydration and impending alcohol withdrawal. Home Medications Scheduled Lisinopril (Lisinopril) Unknown Strength Tablet, 1 TAB PO DAILY, (Reported) WILL VERIFY DOSE WITH PHARMACY WHEN THEY OPEN Scheduled PRN Acetaminophen (Acetaminophen) 500 Mg Tablet, 1,000 MG PO Q6H PRN for PAIN, (Reported) Allergies Coded Allergies: ceftriaxone (Verified Adverse Reaction, Intermediate, FEELS LIKE "PASSING OUT", 08/17/18) Past Medical History Medical History Hypertension History of seizures 2/2 to alcohol? Surgical History Carpal tunnel release Family History Significant Family History: No pertinent family hx (not available as patient could not cooperate with this part of the history) Social History * Smoker: Denies Alcohol: heavy Drugs: denies Recent Travel/Sick Contacts: Denies: Recent travel, Recent sick contacts Smoker: Denies Alcohol: heavy Drugs: denies A-FIB/CHADSVASC A-FIB History Current/History of A-Fib/PAF?: No Current PO Anticoag Therapy: No Age/Risk Factor Scoring CHADSVASC: CHADSVASC Response (Comments) Value Age Risk Factor Age < 65 years old 0 Gender Risk Factor Male 0 Hx of CHF No 0 Hx of HTN Yes 1 Hx of Stroke/TIA/or VTE No 0 Hx of Diabetes No 0 Hx of Vascular Disease No 0 Total 1 Treatment Treatment ordered: NONE Reason Anticoagulant not given: Not indicated/[id number] Review of Systems Constitutional: Reports: Weakness; Denies: Chills, Fever, Night Sweats Eyes: Denies: Pain, Vision change Skin: Denies: Rash, Lesions, Breakdown Pulmonary: Denies: Dyspnea, Cough Cardiovascular: Denies: Chest Pain, Palpitations, Orthopnea, Paroxysmal Noc. Dyspnea, Lt Headedness Gastrointestinal: Denies: Nausea, Vomiting, Abdominal Pain, Diarrhea Genitourinary: Denies: Dysuria, Frequency, Incontinence, Retention Hematologic: Denies: Bruising, Bleeding Excessively Endocrine: Reports: Polydipsia; Denies: Polyphagia, Polyuria, Heat Intolerance, Cold Intolerance Musculoskeletal: Denies: Neck Pain, Back Pain, Joint Pain, Muscle Pain, Spasms Neurological: Reports: Weakness, Confusion; Denies: Numbness, Incoordination, Change in speech, Seizures Psych: Reports: Mood Normal; Denies: Depression, Memory Issues Physical Examination General Exam: Positive: Alert (alert on voice, was asleep prior to entering room and sleepy requiring prompting during our discussion), No Acute Distress Eye Exam: Positive: PERRLA, Conjunctiva & lids normal, EOMI; Negative: Sclera icteric ENT Exam: Positive: Atraumatic, Pharynx Normal; Negative: Mucous membr. moist/pink (dry MM) Neck Exam: Positive: Supple; Negative: JVD, thyromegaly Chest Exam: Positive: Clear to auscultation, Normal air movement Heart Exam: Positive: Rate Normal, Regular Rhythm, Normal S1, Normal S2; Negative: Murmurs, Rubs Telemetry: Positive: No significant arrhythmia Abdomen Exam: Positive: Normal bowel sounds, Soft; Negative: Tenderness, Hepatospenomegaly Extremity Exam: Positive: Normal pulses; Negative: Clubbing, Cyanosis, Edema Skin Exam: Positive: Nl turgor and temperature; Negative: Breakdown, Lesion Neuro Exam: Positive: Normal Speech, Strength at 5/5 X4 ext, Normal Tone, Sensation Intact, Cranial Nerves 3-12 NL Psych Exam: Positive: Mental status NL, Oriented x 3 Vital Signs Vital Signs Date Time Temp Pulse Resp B/P (MAP) Pulse Ox O2 Delivery O2 Flow Rate FiO2 03/08/19 00:30 97.9 95 16 118/81 (93) 96 Room Air Laboratory Data Labs 24H Laboratory Tests 2 03/07/19 10:57: Immature Granulocyte % (Auto) 4.4H, Neutrophils (%) (Auto) 63.9, Lymphocytes (%) (Auto) 21.1L, Monocytes (%) (Auto) 8.2H, Eosinophils (%) (Auto) 1.1, Basophils (%) (Auto) 1.3H, Neutrophils # (Auto) 3.0, Lymphocytes # (Auto) 1.0L, Monocytes # (Auto) 0.4, Eosinophils # (Auto) 0.1, Basophils # (Auto) 0.1, Nucleated Red Blood Cells % (auto) 0.4H, Blood Gas Bicarbonate Standard 19.1, Venous Blood pH 7.366, Venous Blood Partial Pressure CO2 31.9L, Venous Blood Partial Pressure O2 59.9H, Venous Blood Total Carbon Dioxide 18.8L, Venous Blood HCO3 17.9L, Venous Blood Oxygen Saturation 88.9H, Venous Blood Base Excess -6.4L, Anion Gap 22H, Glomerular Filtration Rate > 60.0, Osmolality 372H, Lactic Acid Level 4.0*H, Calcium Level 8.6, Magnesium Level 2.0, Total Bilirubin 1.0, Direct Bilirubin 0.5H, Aspartate Amino Transf (AST/SGOT) 161H, Alanine Aminotransferase (ALT/SGPT) 76, Alkaline Phosphatase 135H, Ammonia < 10, Total Creatine Kinase 37L, Creatine Kinase MB < 1.0, Creatine Kinase MB Relative Index 2.70, Troponin I < 0.02, Total Protein 7.3, Albumin 3.8, Albumin/Globulin Ratio 1.09, Vitamin B12 Level 436, Thyroid Stimulating Hormone (TSH) 0.997, Salicylates Level 1.8L, Acetaminophen Level < 2.0L, Ethyl Alcohol Level 0.265H 03/07/19 11:00: Bedside Glucose (Misc Panel) 70 03/07/19 14:58: Lactic Acid Level 3.3*H 03/07/19 19:39: Lactic Acid Followup at 4 Hours 3.7*H 03/07/19 20:20: Urine Color YELLOW, Urine Appearance CLEAR, Urine pH 6.0, Urine Specific [place] 1.024, Urine Protein 1+H, Urine Glucose (UA) 1+H, Urine Ketones 2+H, Urine Blood NEGATIVE, Urine Nitrite NEGATIVE, Urine Bilirubin NEGATIVE, Urine Urobilinogen 2.0H, Urine Leukocyte Esterase NEGATIVE, Urine WBC (Auto) 3, Urine RBC (Auto) 4H, Urine Hyaline Casts (Auto) 5, Urine Bacteria (Auto) NEGATIVE, Urine Squamous Epithelial Cells 0, Urine Mucus (Auto) SMALL, Urine Sperm (Auto) , Urine Opiates Screen NEGATIVE, Urine Methadone Screen NEGATIVE, Urine Barbiturates Screen NEGATIVE, Urine Phencyclidine Screen NEGATIVE, Urine Amphetamines Screen NEGATIVE, Urine Benzodiazepines Screen NEGATIVE, Urine Cocaine Metabolite Screen NEGATIVE, Urine Cannabinoids Screen NEGATIVE CBC/BMP Laboratory Tests 03/07/19 10:57 Microbiology Microbiology 03/07/19 Blood Culture, Received Pending Assessment/Plan 58 yo man with alcohol use disorder who presented with incredible thirst and episodic confusion and found to be dehydrated with starvation ketosis with an elevated alcohol level now admitted for hydration and impending alcohol withdrawal, with a history of DTs. Dehydration: Hypovolemic on exam, elevated lactate -s/p 3L NS in the ED, now continuing D5NS -will repeat AM lactate and labs AMS: with reported episodic confusion, non focal exam from an infectious standpoint UA with ketouria but no infection, CXR clear, nonfocal examination and no fever, possible early withdrawal vs. severe hypoglycemia and dehydrated state -D5 in fluids -Q6H FSBG -hypoglycemia protocol -fluids as state above -CT head was unrevealing and neuro exam nonfocal Lactic acidosis: 2/2 dehydration -trend lactate with administration of fluids for now -no evidence of infection per studies and exam, will monitor Alcohol use disorder -CIWA with thiamine, folate and ativan -telemetry Transaminitis: -With AST>ALT c/w with alcohol related injury, monitor Thrombocytopenia: 2/2 marrow suppressive effects of excessive alcohol as well as possible deficiencies -has a history of SAH and GIB -fall precautions -SCDs/TEDs for DVT ppx Metabolic acidosis -Likely due to excessive alcohol -D5NS @ 100 mL per hour, s/p 3L NS -Repeat chemistry panel in the morning Metabolic derangement -Hypokalemia --> repleted -Monitor levels and continue to replete to keep potassium greater than 4 and magnesium greater than 2 DVT prophylaxis -SCD/TEDS due to underlying risk of bleed with thrombocytopenia Plan / VTE VTE Prophylaxis Ordered?: Yes GARETH CASTLE MD Mar 08, 2019 01:50
[2019-03-08] MEDS: D5W/0.9% SODIUM CHLORIDE 1,000 ML IV SCH ×3 (02:00→23:58)
[2019-03-08 06:38] LABS: HEMATOCRIT 28.2 % (42.0-52.0); MEAN CORPUSCULAR HEMOGLOBIN 28.6 pg (27.0-33.0); MEAN CORPUSCULAR HGB CONC 32.6 g/dl (32.0-36.5); MEAN CORPUSCULAR VOLUME 87.6 fl (80.0-96.0); RED BLOOD COUNT 3.22 10^6/uL (4.30-6.10); WHITE BLOOD COUNT 3.6 10^3/uL (4.0-10.0)
[2019-03-08 06:50] LABS: INR 1.26; PROTHROMBIN TIME 15.5 SECONDS (11.8-14.0)
[2019-03-08 07:01] LABS: PLATELET COUNT, AUTOMATED 74 10^3/uL (150-450)
[2019-03-08 07:02] LABS: HEMOGLOBIN 9.2 g/dl (13.5-17.5)
[2019-03-08 07:03] LABS: ALBUMIN 2.6 GM/DL (3.2-5.2); ALT/SGPT 49 U/L (12-78); BILIRUBIN,TOTAL 1.2 MG/DL (0.2-1.0); BLOOD UREA NITROGEN 21 MG/DL (7-18); CALCIUM LEVEL 7.5 MG/DL (8.5-10.1); CARBON DIOXIDE LEVEL 27 MEQ/L (21-32); CHLORIDE LEVEL 100 MEQ/L (98-107); CREATININE FOR GFR 0.86 MG/DL (0.70-1.30); GLOMERULAR FILTRATION RATE > 60.0 (>56); GLUCOSE, FASTING 108 MG/DL (70-100); MAGNESIUM LEVEL 1.4 MG/DL (1.8-2.4); POTASSIUM SERUM 3.7 MEQ/L (3.5-5.1); SODIUM LEVEL 136 MEQ/L (136-145); TOTAL PROTEIN 5.6 GM/DL (6.4-8.2)
[2019-03-08] MEDS: MAGNESIUM OXIDE 400 MG TAB (MAG-OX) PO SCH ×2 (10:44→21:39)
[2019-03-08] MEDS: FOLIC ACID 1 MG TAB PO SCH (10:44)
[2019-03-08] MEDS: MULTIVITAMINS/MINERALS THERAP 1 TAB PO SCH (10:44)
[2019-03-08] MEDS: THIAMINE 100 MG TAB PO SCH ×2 (10:44→21:39)
--- NOTE | 2019-03-08 13:46 | IPNPDOC ---
Subjective Date Seen The patient was seen on 03/08/19. Subjective Chief Complaint/HPI Erwin is lying in bed, he's alert but looks acutely ill. His breathing is relaxed, no active DTs at this time. He has not eaten breakfast when I visited with him. Objective Physical Examination General Exam: Positive: Alert (awakens to voice stimuli and answers questions), No Acute Distress Eye Exam: Positive: PERRLA, Conjunctiva & lids normal, EOMI; Negative: Sclera icteric ENT Exam: Positive: Atraumatic, Pharynx Normal, Nares Patent; Negative: Pharyngeal Edema Neck Exam: Positive: Supple; Negative: JVD, thyromegaly Chest Exam: Positive: Clear to auscultation, Normal air movement Heart Exam: Positive: Rate Normal, Regular Rhythm, Normal S1, Normal S2; Negative: Murmurs, Rubs Telemetry: Positive: No significant arrhythmia Abdomen Exam: Positive: Normal bowel sounds, Soft; Negative: Tenderness, Hepatospenomegaly Extremity Exam: Positive: Normal pulses; Negative: Clubbing, Cyanosis, Edema Skin Exam: Positive: Nl turgor and temperature; Negative: Breakdown, Lesion Neuro Exam: Positive: Normal Speech, Normal Tone, Sensation Intact, Cranial Nerves 3-12 NL Psych Exam: Positive: Oriented x 3, Other (fatigued appearance) Assessment /Plan Assessment # Acute dehydration - IVFs - lactic acidemia likely due to chronic alcoholic liver disease - PT/Ot eval pending today # Hypokalemia - resolved # Hypomagnesia - start magox 400 ng bid - recheck mag level in am # Acute ETOH intoxication on admission - [facility] protocol - ativan prn # Seizure disorder due to DTs - no AED recommended # Chronic thrombocytopenia - no anticoagulation - TEDs only Dispo: hopefully home in next 1-2 days Plan/VTE VTE Prophylaxis Ordered?: Yes VTE Exclusion Mechanical Proph: N/A:VTE Prophy Ordered VTE Exclusion Pharmacological: Thrombocytopenia VS, I&O, 24H, Fishbone Vital Signs/I&O Vital Signs Date Time Temp Pulse Resp B/P (MAP) Pulse Ox O2 Delivery O2 Flow Rate FiO2 03/08/19 06:20 98 129/84 03/08/19 06:00 98.7 20 94 Room Air I&O- Last 24 Hours up to 6 AM 03/08/19 06:00 Intake Total 2500 ml Balance 2500 ml Laboratory Data 24H LABS Laboratory Tests 2 03/07/19 14:58: Lactic Acid Level 3.3*H 03/07/19 19:39: Lactic Acid Followup at 4 Hours 3.7*H 03/07/19 20:20: Urine Color YELLOW, Urine Appearance CLEAR, Urine pH 6.0, Urine Specific [place] 1.024, Urine Protein 1+H, Urine Glucose (UA) 1+H, Urine Ketones 2+H, Urine Blood NEGATIVE, Urine Nitrite NEGATIVE, Urine Bilirubin NEGATIVE, Urine Urobilinogen 2.0H, Urine Leukocyte Esterase NEGATIVE, Urine WBC (Auto) 3, Urine RBC (Auto) 4H, Urine Hyaline Casts (Auto) 5, Urine Bacteria (Auto) NEGATIVE, Urine Squamous Epithelial Cells 0, Urine Mucus (Auto) SMALL, Urine Sperm (Auto) , Urine Opiates Screen NEGATIVE, Urine Methadone Screen NEGATIVE, Urine Barbiturates Screen NEGATIVE, Urine Phencyclidine Screen NEGATIVE, Urine Amphetamines Screen NEGATIVE, Urine Benzodiazepines Screen NEGATIVE, Urine Cocaine Metabolite Screen NEGATIVE, Urine Cannabinoids Screen NEGATIVE 03/08/19 01:55: Bedside Glucose (Misc Panel) 107H 03/08/19 06:09: Bedside Glucose (Misc Panel) 108H 03/08/19 06:21: Prothrombin Time 15.5H, Prothromb Time International Ratio 1.26, Anion Gap 9, Glomerular Filtration Rate > 60.0, Calcium Level 7.5L, Magnesium Level 1.4L, Total Bilirubin 1.2H, Aspartate Amino Transf (AST/SGOT) 95H, Alanine Aminotr ansferase (ALT/SGPT) 49, Alkaline Phosphatase 103, Total Protein 5.6#L, Albumin 2.6#L, Albumin/Globulin Ratio 0.87L 03/08/19 06:22: Nucleated Red Blood Cells % (auto) 1.1H, Immature Platelet Fraction 4.0, Lactic Acid Level 1.2 CBC/BMP Laboratory Tests 03/08/19 06:21 03/08/19 06:22 Microbiology Microbiology 03/07/19 Blood Culture - Preliminary, Resulted No growth after 24 hours . All specim... LAITH JUÁREZ MD Mar 08, 2019 13:45
[2019-03-08] MEDS: ONDANSETRON 4MG/2ML VIAL (J2405) IV PRN (23:58)
[2019-03-09 06:00] VITALS: BP_SYST 123; BP_SYST 125; BP_DIAS 80; BP_DIAS 82
[2019-03-09 06:22] LABS: HEMOGLOBIN 8.7 g/dl (13.5-17.5); MEAN CORPUSCULAR HEMOGLOBIN 29.2 pg (27.0-33.0); MEAN CORPUSCULAR HGB CONC 33.5 g/dl (32.0-36.5); MEAN CORPUSCULAR VOLUME 87.2 fl (80.0-96.0); RED BLOOD COUNT 2.98 10^6/uL (4.30-6.10); WHITE BLOOD COUNT 2.5 10^3/uL (4.0-10.0)
[2019-03-09 06:26] LABS: PLATELET COUNT, AUTOMATED 63 10^3/uL (150-450)
[2019-03-09 06:40] LABS: ALBUMIN 2.6 GM/DL (3.2-5.2); ALT/SGPT 40 U/L (12-78); BLOOD UREA NITROGEN 12 MG/DL (7-18); CALCIUM LEVEL 7.9 MG/DL (8.5-10.1); CARBON DIOXIDE LEVEL 28 MEQ/L (21-32); CHLORIDE LEVEL 100 MEQ/L (98-107); CREATININE FOR GFR 0.72 MG/DL (0.70-1.30); GLOMERULAR FILTRATION RATE > 60.0 (>56); GLUCOSE, FASTING 144 MG/DL (70-100); MAGNESIUM LEVEL 1.2 MG/DL (1.8-2.4); POTASSIUM SERUM 3.2 MEQ/L (3.5-5.1); SODIUM LEVEL 135 MEQ/L (136-145)
[2019-03-09] MEDS: MAGNESIUM OXIDE 400 MG TAB (MAG-OX) PO SCH ×2 (08:13→20:41)
[2019-03-09] MEDS: FOLIC ACID 1 MG TAB PO SCH (08:13)
[2019-03-09] MEDS: MULTIVITAMINS/MINERALS THERAP 1 TAB PO SCH (08:13)
[2019-03-09] MEDS: POTASSIUM CHLORIDE 10 MEQ SR TABLET PO SCH ×2 (08:13→20:41)
[2019-03-09] MEDS: THIAMINE 100 MG TAB PO SCH ×2 (08:14→20:41)
[2019-03-09] MEDS: D5W/0.9% SODIUM CHLORIDE 1,000 ML IV SCH ×2 (08:14→20:40)
[2019-03-09] MEDS ORDERED: MAG SULF 1GM/100ML (MAG RUN) 1 GM in IV 1 EA IV ONE (09:00)
--- NOTE | 2019-03-09 13:16 | IPNPDOC ---
Subjective Date Seen The patient was seen on 03/09/19. Subjective Chief Complaint/HPI Erwin is more awake this morning, he has not gotten out of bed. No active DTs at this time. Objective Physical Examination General Exam: Positive: Alert (awakens to voice stimuli and answers questions), No Acute Distress Eye Exam: Positive: PERRLA; Negative: Sclera icteric ENT Exam: Positive: Atraumatic, Pharynx Normal; Negative: Pharyngeal Edema Neck Exam: Positive: Supple; Negative: JVD, thyromegaly Chest Exam: Positive: Clear to auscultation, Normal air movement Heart Exam: Positive: Rate Normal, Regular Rhythm, Normal S1, Normal S2; Negative: Murmurs, Rubs Telemetry: Positive: No significant arrhythmia Abdomen Exam: Positive: Normal bowel sounds, Soft; Negative: Tenderness, Hepatospenomegaly Extremity Exam: Positive: Normal pulses; Negative: Clubbing, Cyanosis, Edema Skin Exam: Positive: Nl turgor and temperature; Negative: Breakdown, Lesion Neuro Exam: Positive: Normal Speech, Normal Tone, Other (no asterixis) Psych Exam: Positive: Oriented x 3, Other (fatigued appearance) Assessment /Plan Assessment # Acute dehydration - IVFs - lactic acidemia likely due to chronic alcoholic liver disease - PT/Ot following # Hypokalemia - potassium bid x 2 days # Hypomagnesia - magox 400 ng bid - IV mag 1 gm today # Acute ETOH intoxication on admission - [facility] protocol - ativan prn # Seizure disorder due to DTs - no AED recommended # Chronic thrombocytopenia - no anticoagulation - TEDs only Dispo: hopefully home once electrolytes stable Plan/VTE VTE Prophylaxis Ordered?: Yes VTE Exclusion Mechanical Proph: N/A:VTE Prophy Ordered VTE Exclusion Pharmacological: Thrombocytopenia VS, I&O, 24H, Fishbone Vital Signs/I&O Vital Signs Date Time Temp Pulse Resp B/P (MAP) Pulse Ox O2 Delivery O2 Flow Rate FiO2 03/09/19 06:00 93 125/82 03/09/19 06:00 97.8 17 96 Room Air I&O- Last 24 Hours up to 6 AM 03/09/19 06:00 Intake Total 2970 ml Output Total 825 ml Balance 2145 ml Laboratory Data 24H LABS Laboratory Tests 2 03/09/19 05:53: Nucleated Red Blood Cells % (auto) 0.8H, Anion Gap 7L, Glomerular Filtration Rate > 60.0, Calcium Level 7.9L, Magnesium Level 1.2L, Total Bilirubin 1.0, Aspartate Amino Transf (AST/SGOT) 58H, Alanine Aminotransferase (ALT/SGPT) 40, Alkaline Phosphatase 98, Total Protein 5.0L, Albumin 2.6L, Albumin/Globulin Ratio 1.08 CBC/BMP Laboratory Tests 03/09/19 05:53 Microbiology Microbiology 03/07/19 Blood Culture - Preliminary, Resulted No Growth after 48 hours. All Specime... LAITH JUÁREZ MD Mar 09, 2019 13:16
[2019-03-09 14:00] VITALS: BP 119/86
[2019-03-09 22:00] VITALS: BP_SYST 106; BP_SYST 120; BP_DIAS 68; BP_DIAS 75
[2019-03-10 05:30] VITALS: BP 118/67
[2019-03-10 06:00] VITALS: BP 118/67
[2019-03-10] MEDS: ONDANSETRON 4MG/2ML VIAL (J2405) IV PRN (06:07)
[2019-03-10] MEDS: D5W/0.9% SODIUM CHLORIDE 1,000 ML IV SCH ×2 (06:07→14:00)
[2019-03-10] MEDS: LORazepam 2 MG TAB PO PRN (06:17)
[2019-03-10] MEDS: MAGNESIUM OXIDE 400 MG TAB (MAG-OX) PO SCH ×2 (09:09→20:37)
[2019-03-10] MEDS: FOLIC ACID 1 MG TAB PO SCH (09:09)
[2019-03-10] MEDS: POTASSIUM CHLORIDE 10 MEQ SR TABLET PO SCH ×2 (09:09→20:37)
[2019-03-10] MEDS: MULTIVITAMINS/MINERALS THERAP 1 TAB PO SCH (09:09)
[2019-03-10] MEDS: THIAMINE 100 MG TAB PO SCH (09:09)
--- NOTE | 2019-03-10 11:30 | IPNPDOC ---
Subjective Date Seen The patient was seen on 03/10/19. Subjective Chief Complaint/HPI Erwin refused lab draw this morning, and has refused to work with PT. Did not sleep well due to interruptions during the night, and anxiety. He reports that he feels wobbly when standing + dizzy. Objective Physical Examination General Exam: Positive: Alert, No Acute Distress Eye Exam: Positive: Conjunctiva & lids normal; Negative: Sclera icteric ENT Exam: Positive: Atraumatic, Mucous membr. moist/pink, Pharynx Normal; Negative: Pharyngeal Edema Neck Exam: Positive: Supple; Negative: JVD, thyromegaly Chest Exam: Positive: Clear to auscultation, Normal air movement Heart Exam: Positive: Regular Rhythm, Normal S1, Normal S2; Negative: Murmurs, Rubs Telemetry: Positive: No significant arrhythmia Abdomen Exam: Positive: Normal bowel sounds, Soft; Negative: Tenderness, Hepatospenomegaly Extremity Exam: Positive: Normal pulses; Negative: Clubbing, Cyanosis, Edema Skin Exam: Positive: Nl turgor and temperature; Negative: Breakdown, Lesion Neuro Exam: Positive: Normal Speech, Normal Tone Psych Exam: Positive: Oriented x 3 Assessment /Plan Assessment # Acute dehydration - continue IVFs x 24 hours then stop - lactic acidemia likely due to chronic alcoholic liver disease - PT/OT following, d/w during MDR patient not safe for discharge yet # Hypokalemia - potassium bid x 2 days - patient refused labs this morning, will reorder again in am # Hypomagnesia - magoxide 400 ng bid - IV mag 1 gm today - refused repeat mag level this morning, reorder in am # Acute ETOH intoxication on admission - [facility] protocol - ativan prn # Seizure disorder due to DTs - no AED recommended # Chronic thrombocytopenia - no anticoagulation - TEDs only Dispo: hopefully home once electrolytes stable Plan/VTE VTE Prophylaxis Ordered?: Yes VTE Exclusion Mechanical Proph: N/A:VTE Prophy Ordered VTE Exclusion Pharmacological: Thrombocytopenia VS, I&O, 24H, Fishbone Vital Signs/I&O Vital Signs Date Time Temp Pulse Resp B/P (MAP) Pulse Ox O2 Delivery O2 Flow Rate FiO2 03/10/19 06:00 98.0 90 18 118/67 (84) 99 03/09/19 14:00 Room Air I&O- Last 24 Hours up to 6 AM 03/10/19 06:00 Intake Total 4400 ml Output Total 3600 ml Balance 800 ml Laboratory Data 24H LABS Laboratory Tests 2 03/10/19 06:00: Bedside Glucose (Misc Panel) 134H Microbiology Microbiology 03/07/19 Blood Culture - Preliminary, Resulted No Growth after 72 hours. All specime... LAITH JUÁREZ MD Mar 10, 2019 11:30
[2019-03-10 14:00] VITALS: BP_SYST 107; BP_SYST 118; BP_DIAS 67; BP_DIAS 78
[2019-03-10 14:32] LABS: HEMATOCRIT 28.9 % (42.0-52.0); HEMOGLOBIN 9.5 g/dl (13.5-17.5); MEAN CORPUSCULAR HGB CONC 32.9 g/dl (32.0-36.5); MEAN CORPUSCULAR VOLUME 88.1 fl (80.0-96.0); RED BLOOD COUNT 3.28 10^6/uL (4.30-6.10); WHITE BLOOD COUNT 2.5 10^3/uL (4.0-10.0)
[2019-03-10 14:41] LABS: ALBUMIN 2.5 GM/DL (3.2-5.2); ALT/SGPT 68 U/L (12-78); BILIRUBIN,TOTAL 0.6 MG/DL (0.2-1.0); BLOOD UREA NITROGEN 4 MG/DL (7-18); CARBON DIOXIDE LEVEL 29 MEQ/L (21-32); CHLORIDE LEVEL 106 MEQ/L (98-107); CREATININE FOR GFR 0.75 MG/DL (0.70-1.30); GLOMERULAR FILTRATION RATE > 60.0 (>56); GLUCOSE, FASTING 113 MG/DL (70-100); MAGNESIUM LEVEL 1.8 MG/DL (1.8-2.4); POTASSIUM SERUM 4.2 MEQ/L (3.5-5.1); SODIUM LEVEL 140 MEQ/L (136-145)
[2019-03-10 14:42] LABS: PLATELET COUNT, AUTOMATED 81 10^3/uL (150-450)
[2019-03-10 22:00] VITALS: BP_SYST 115; BP_SYST 116; BP_DIAS 80
[2019-03-11] MEDS: D5W/0.9% SODIUM CHLORIDE 1,000 ML IV SCH (00:29)
[2019-03-11 06:00] VITALS: BP 133/89
[2019-03-11 06:00] LABS: HEMATOCRIT 29.8 % (42.0-52.0); HEMOGLOBIN 9.3 g/dl (13.5-17.5); MEAN CORPUSCULAR HEMOGLOBIN 28.4 pg (27.0-33.0); MEAN CORPUSCULAR HGB CONC 31.2 g/dl (32.0-36.5); MEAN CORPUSCULAR VOLUME 90.9 fl (80.0-96.0); RED BLOOD COUNT 3.28 10^6/uL (4.30-6.10); WHITE BLOOD COUNT 3.1 10^3/uL (4.0-10.0)
[2019-03-11 06:08] LABS: PLATELET COUNT, AUTOMATED 98 10^3/uL (150-450)
[2019-03-11 06:20] LABS: ALBUMIN 2.6 GM/DL (3.2-5.2); ALT/SGPT 94 U/L (12-78); BILIRUBIN,TOTAL 0.6 MG/DL (0.2-1.0); BLOOD UREA NITROGEN 3 MG/DL (7-18); CARBON DIOXIDE LEVEL 29 MEQ/L (21-32); CHLORIDE LEVEL 102 MEQ/L (98-107); CREATININE FOR GFR 0.74 MG/DL (0.70-1.30); GLOMERULAR FILTRATION RATE > 60.0 (>56); GLUCOSE, FASTING 101 MG/DL (70-100); MAGNESIUM LEVEL 1.4 MG/DL (1.8-2.4); POTASSIUM SERUM 4.2 MEQ/L (3.5-5.1); SODIUM LEVEL 135 MEQ/L (136-145); TOTAL PROTEIN 5.8 GM/DL (6.4-8.2)
[2019-03-11] MEDS ORDERED: MAG SULF 1GM/100ML (MAG RUN) 1 GM in IV 1 EA IV ONE (08:00)
[2019-03-11] MEDS: ONDANSETRON 4MG/2ML VIAL (J2405) IV PRN ×3 (09:25→20:14)
[2019-03-11] MEDS: FOLIC ACID 1 MG TAB PO SCH (09:26)
[2019-03-11] MEDS: MAGNESIUM OXIDE 400 MG TAB (MAG-OX) PO SCH ×2 (09:26→20:14)
[2019-03-11] MEDS: MULTIVITAMINS/MINERALS THERAP 1 TAB PO SCH (09:26)
--- NOTE | 2019-03-11 11:57 | IPNPDOC ---
Subjective Date Seen The patient was seen on 03/11/19. Subjective Chief Complaint/HPI Erwin still feels wobbly on his feet. c/o nausea this morning. Objective Physical Examination General Exam: Positive: Alert, Cooperative, No Acute Distress Eye Exam: Positive: Conjunctiva & lids normal; Negative: Sclera icteric ENT Exam: Positive: Mucous membr. moist/pink; Negative: Pharyngeal Edema Neck Exam: Positive: Supple; Negative: JVD, thyromegaly Chest Exam: Positive: Clear to auscultation, Normal air movement Heart Exam: Positive: Regular Rhythm, Normal S1, Normal S2; Negative: Murmurs, Rubs Abdomen Exam: Positive: Normal bowel sounds, Soft; Negative: Tenderness, Hepatospenomegaly Extremity Exam: Positive: Normal pulses; Negative: Clubbing, Cyanosis, Edema Skin Exam: Positive: Nl turgor and temperature; Negative: Breakdown, Lesion Neuro Exam: Positive: Normal Speech, Normal Tone, Cranial Nerves 3-12 NL Psych Exam: Positive: Oriented x 3 Assessment /Plan Assessment # Acute dehydration - stop IVFs - lactic acidemia likely due to chronic alcoholic liver disease - PT/OT following - hoping to discharge sometime this weekend # Hypokalemia - resolved # Hypomagnesia - increase magoxide 800 ng bid, start slow mag at discharge - IV mag 1 gm x 1 this morning - recheck level in am # Acute ETOH intoxication on admission - [facility] protocol - ativan prn - no active DTs # Seizure disorder due to DTs - no AED recommended # Chronic thrombocytopenia - no anticoagulation - TEDs only Plan/VTE VTE Prophylaxis Ordered?: No (TEDs only) VTE Exclusion Mechanical Proph: N/A:VTE Prophy Ordered VTE Exclusion Pharmacological: Thrombocytopenia VS, I&O, 24H, Fishbone Vital Signs/I&O Vital Signs Date Time Temp Pulse Resp B/P (MAP) Pulse Ox O2 Delivery O2 Flow Rate FiO2 03/11/19 06:00 97.0 70 18 133/89 (104) 96 03/09/19 14:00 Room Air I&O- Last 24 Hours up to 6 AM 03/11/19 06:00 Intake Total 4010 ml Output Total 3585 ml Balance 425 ml Laboratory Data 24H LABS Laboratory Tests 2 03/10/19 13:52: Nucleated Red Blood Cells % (auto) 0.0, Immature Platelet Fraction 5.5, Anion Gap 5L, Glomerular Filtration Rate > 60.0, Calcium Level 8.0L, Magnesium Level 1.8, Total Bilirubin 0.6, Aspartate Amino Transf (AST/SGOT) 137H, Alanine Aminotransferase (ALT/SGPT) 68, Alkaline Phosphatase 90, Total Protein 5.0L, Albumin 2.5L, Albumin/Globulin Ratio 1.00 03/11/19 05:26: Nucleated Red Blood Cells % (auto) 0.0, Anion Gap 4L, Glomerular Filtration Rate > 60.0, Calcium Level 8.0L, Magnesium Level 1.4L, Total Bilirubin 0.6, Aspartate Amino Transf (AST/SGOT) 177H, Alanine Aminotransferase (ALT/SGPT) 94H, Alkaline Phosphatase 97, Total Protein 5.8L, Albumin 2.6L, Albumin/Globulin Ratio 0.81L CBC/BMP Laboratory Tests 03/10/19 13:52 03/11/19 05:26 Microbiology Microbiology 03/07/19 Blood Culture - Preliminary, Resulted No Growth after 72 hours. All specime... LAITH JUÁREZ MD Mar 11, 2019 11:52
[2019-03-11 14:00] VITALS: BP 127/85
[2019-03-11 22:00] VITALS: BP 114/81
[2019-03-12] MEDS: ONDANSETRON 4MG/2ML VIAL (J2405) IV PRN ×5 (00:38→23:15)
[2019-03-12 06:00] VITALS: BP 120/87
[2019-03-12 08:29] LABS: HEMATOCRIT 32.3 % (42.0-52.0); HEMOGLOBIN 10.3 g/dl (13.5-17.5); MEAN CORPUSCULAR HEMOGLOBIN 28.5 pg (27.0-33.0); MEAN CORPUSCULAR HGB CONC 31.9 g/dl (32.0-36.5); MEAN CORPUSCULAR VOLUME 89.2 fl (80.0-96.0); PLATELET COUNT, AUTOMATED 126 10^3/uL (150-450); RED BLOOD COUNT 3.62 10^6/uL (4.30-6.10); WHITE BLOOD COUNT 2.9 10^3/uL (4.0-10.0)
[2019-03-12 08:52] LABS: ALBUMIN 2.9 GM/DL (3.2-5.2); ALT/SGPT 174 U/L (12-78); BILIRUBIN,TOTAL 0.7 MG/DL (0.2-1.0); BLOOD UREA NITROGEN 4 MG/DL (7-18); CALCIUM LEVEL 8.4 MG/DL (8.5-10.1); CARBON DIOXIDE LEVEL 29 MEQ/L (21-32); CHLORIDE LEVEL 98 MEQ/L (98-107); CREATININE FOR GFR 1.02 MG/DL (0.70-1.30); GLOMERULAR FILTRATION RATE > 60.0 (>56); GLUCOSE, FASTING 126 MG/DL (70-100); SODIUM LEVEL 133 MEQ/L (136-145); TOTAL PROTEIN 5.8 GM/DL (6.4-8.2)
[2019-03-12] MEDS: MULTIVITAMINS/MINERALS THERAP 1 TAB PO SCH ×2 (09:06→12:40)
[2019-03-12] MEDS: MAGNESIUM OXIDE 400 MG TAB (MAG-OX) PO SCH ×3 (09:06→20:17)
[2019-03-12] MEDS: FOLIC ACID 1 MG TAB PO SCH ×2 (09:06→12:40)
[2019-03-12] MEDS: PANTOPRAZOLE 20 MG TAB PO SCH (12:40)
--- NOTE | 2019-03-12 12:41 | IPNPDOC ---
Subjective Date Seen The patient was seen on 03/12/19. Subjective Chief Complaint/HPI Erwin is continuing to complain of nausea and feeling unsteady on his feet Objective Physical Examination General Exam: Positive: No Acute Distress Eye Exam: Positive: PERRLA; Negative: Sclera icteric ENT Exam: Positive: Mucous membr. moist/pink; Negative: Pharyngeal Edema Neck Exam: Positive: Supple; Negative: JVD, thyromegaly Chest Exam: Positive: Clear to auscultation Heart Exam: Positive: Regular Rhythm, Normal S1, Normal S2; Negative: Murmurs, Rubs Abdomen Exam: Positive: Normal bowel sounds, Soft; Negative: Tenderness, Hepatospenomegaly Extremity Exam: Positive: Normal pulses; Negative: Clubbing, Cyanosis, Edema Skin Exam: Positive: Nl turgor and temperature; Negative: Breakdown, Lesion Neuro Exam: Positive: Normal Speech, Normal Tone Psych Exam: Positive: Oriented x 3 Assessment /Plan Assessment # Acute dehydration # Generalized weakness - stop IVFs - lactic acidemia likely due to chronic alcoholic liver disease - PT/OT following - home when able to be safely discharged # Hypokalemia - resolved # Hypomagnesia - increase mag oxide 800 ng bid, start slow mag at discharge # Acute ETOH intoxication on admission - [facility] protocol - ativan prn - no active DTs # Seizure disorder due to DTs - no AED recommended # Chronic thrombocytopenia - no anticoagulation - TEDs only Plan/VTE VTE Prophylaxis Ordered?: No (TEDs only) VTE Exclusion Mechanical Proph: N/A:VTE Prophy Ordered VTE Exclusion Pharmacological: Thrombocytopenia VS, I&O, 24H, Fishbone Vital Signs/I&O Vital Signs Date Time Temp Pulse Resp B/P (MAP) Pulse Ox O2 Delivery O2 Flow Rate FiO2 03/12/19 06:00 98.6 86 17 120/87 (98) 100 Room Air I&O- Last 24 Hours up to 6 AM 03/12/19 06:00 Intake Total 2120 ml Output Total 3490 ml Balance -1370 ml Laboratory Data 24H LABS Laboratory Tests 2 03/12/19 08:15: Nucleated Red Blood Cells % (auto) 0.0, Anion Gap 6L, Glomerular Filtration Rate > 60.0, Calcium Level 8.4L, Total Bilirubin 0.7, Aspartate Amino Transf (AST/SGOT) 301H, Alanine Aminotransferase (ALT/SGPT) 174H, Alkaline Phosphatase 110, Total Protein 5.8L, Albumin 2.9L, Albumin/Globulin Ratio 1.00 CBC/BMP Laboratory Tests 03/12/19 08:15 Microbiology Microbiology 03/07/19 Blood Culture - Final, Complete NO GROWTH AFTER 5 DAYS LAITH JUÁREZ MD Mar 12, 2019 12:41
[2019-03-12 22:00] VITALS: BP 127/87
[2019-03-13] MEDS: ONDANSETRON 4MG/2ML VIAL (J2405) IV PRN ×3 (03:36→20:39)
[2019-03-13 06:00] VITALS: BP 137/84
[2019-03-13 06:44] LABS: BLOOD UREA NITROGEN 7 MG/DL (7-18); CALCIUM LEVEL 8.5 MG/DL (8.5-10.1); CARBON DIOXIDE LEVEL 25 MEQ/L (21-32); CHLORIDE LEVEL 100 MEQ/L (98-107); CREATININE FOR GFR 1.03 MG/DL (0.70-1.30); GLOMERULAR FILTRATION RATE > 60.0 (>56); GLUCOSE, FASTING 94 MG/DL (70-100); MAGNESIUM LEVEL 1.9 MG/DL (1.8-2.4); POTASSIUM SERUM 4.1 MEQ/L (3.5-5.1); SODIUM LEVEL 133 MEQ/L (136-145)
--- NOTE | 2019-03-13 12:04 | IPNPDOC ---
Subjective Date Seen The patient was seen on 03/13/19. Subjective Chief Complaint/HPI Nausea improved, but still feels unsteady on his feet. Objective Physical Examination General Exam: Positive: No Acute Distress Eye Exam: Positive: PERRLA; Negative: Sclera icteric ENT Exam: Positive: Mucous membr. moist/pink; Negative: Pharyngeal Edema Neck Exam: Positive: Supple; Negative: JVD, thyromegaly Chest Exam: Positive: Clear to auscultation Heart Exam: Positive: Regular Rhythm, Normal S1, Normal S2; Negative: Murmurs, Rubs Abdomen Exam: Positive: Normal bowel sounds, Soft; Negative: Tenderness, Hepatospenomegaly Extremity Exam: Positive: Normal pulses; Negative: Clubbing, Cyanosis, Edema Skin Exam: Positive: Nl turgor and temperature; Negative: Breakdown, Lesion Neuro Exam: Positive: Normal Speech Psych Exam: Positive: Oriented x 3 Assessment /Plan Assessment # Acute dehydration # Generalized weakness - stop IVFs - lactic acidemia likely due to chronic alcoholic liver disease - PT/OT following - home when able to be safely discharged - add scheduled oral zofran - protonix 20 mg daily # Hypokalemia - resolved # Hypomagnesia - resolved - mag oxide 800 ng bid, start slow mag at discharge # Acute ETOH intoxication on admission - [facility] protocol - ativan prn - no active DTs # Seizure disorder due to DTs - no AED recommended # Chronic thrombocytopenia - no anticoagulation - TEDs only Plan/VTE VTE Prophylaxis Ordered?: No (TEDs only) VTE Exclusion Mechanical Proph: N/A:VTE Prophy Ordered VTE Exclusion Pharmacological: Thrombocytopenia VS, I&O, 24H, Fishbone Vital Signs/I&O Vital Signs Date Time Temp Pulse Resp B/P (MAP) Pulse Ox O2 Delivery O2 Flow Rate FiO2 03/13/19 06:00 98.1 93 16 137/84 (101) 100 Room Air I&O- Last 24 Hours up to 6 AM 03/13/19 05:59 Intake Total 700 ml Output Total 1300 ml Balance -600 ml Laboratory Data 24H LABS Laboratory Tests 2 03/13/19 05:52: Anion Gap 8, Glomerular Filtration Rate > 60.0, Calcium Level 8.5, Magnesium Level 1.9 CBC/BMP Laboratory Tests 03/13/19 05:52 Microbiology Microbiology 03/07/19 Blood Culture - Final, Complete NO GROWTH AFTER 5 DAYS LAITH JUÁREZ MD Mar 13, 2019 12:04
[2019-03-13] MEDS: FOLIC ACID 1 MG TAB PO SCH (12:29)
[2019-03-13] MEDS: PANTOPRAZOLE 20 MG TAB PO SCH (12:30)
[2019-03-13] MEDS: MAGNESIUM OXIDE 400 MG TAB (MAG-OX) PO SCH ×2 (12:30→20:40)
[2019-03-13] MEDS: MULTIVITAMINS/MINERALS THERAP 1 TAB PO SCH (12:30)
[2019-03-13] MEDS: ONDANSETRON 4 MG ORAL DISINTEGRATING TAB (Q0162 PER 1MG) SL SCH ×3 (12:33→23:31)
[2019-03-13 14:00] VITALS: BP 103/74
[2019-03-13 22:00] VITALS: BP 130/87
[2019-03-14 06:00] VITALS: BP 131/84
[2019-03-14] MEDS: ONDANSETRON 4 MG ORAL DISINTEGRATING TAB (Q0162 PER 1MG) SL SCH ×4 (06:19→23:14)
[2019-03-14] MEDS: MULTIVITAMINS/MINERALS THERAP 1 TAB PO SCH (09:04)
[2019-03-14] MEDS: MAGNESIUM OXIDE 400 MG TAB (MAG-OX) PO SCH ×2 (09:04→21:00)
[2019-03-14] MEDS: FOLIC ACID 1 MG TAB PO SCH (09:04)
[2019-03-14] MEDS: PANTOPRAZOLE 20 MG TAB PO SCH (09:05)
--- NOTE | 2019-03-14 11:33 | IPNPDOC ---
Subjective Date Seen The patient was seen on 03/14/19. Subjective Chief Complaint/HPI Erwin does not report nausea this morning. Continues to c/o of feeling like he's going to fall when standing, and lightheadedness. He denies vertigo sensation. Objective Physical Examination General Exam: Positive: Alert, Cooperative, No Acute Distress Eye Exam: Positive: PERRLA; Negative: Sclera icteric ENT Exam: Positive: Mucous membr. moist/pink; Negative: Pharyngeal Edema Neck Exam: Positive: Supple; Negative: JVD, thyromegaly Chest Exam: Positive: Clear to auscultation Heart Exam: Positive: Regular Rhythm, Normal S1, Normal S2; Negative: Murmurs, Rubs Abdomen Exam: Positive: Normal bowel sounds, Soft; Negative: Tenderness, Hepatospenomegaly Extremity Exam: Positive: Normal pulses; Negative: Clubbing, Cyanosis, Edema, Tenderness, Swelling Skin Exam: Positive: Nl turgor and temperature; Negative: Breakdown, Lesion Neuro Exam: Positive: Normal Speech, Strength at 5/5 X4 ext, Cranial Nerves 3- 12 NL Psych Exam: Positive: Mood NL, Oriented x 3 Assessment /Plan Assessment # Acute dehydration # Generalized weakness - give 1 liter NS today - lactic acidemia likely due to chronic alcoholic liver disease, has resolved. - PT/OT following - home when able to be safely discharged - on scheduled oral zofran for nausea - protonix 20 mg daily - MRI brain today # Hypokalemia - resolved # Hypomagnesia - resolved - mag oxide 800 ng bid, start slow mag at discharge # Acute ETOH intoxication on admission - [facility] protocol - ativan prn - no active DTs # Seizure disorder due to DTs - no AED recommended # Chronic thrombocytopenia - no anticoagulation - TEDs only Plan/VTE VTE Prophylaxis Ordered?: No (TEDs only) VTE Exclusion Mechanical Proph: N/A:VTE Prophy Ordered VTE Exclusion Pharmacological: Thrombocytopenia VS, I&O, 24H, Fishbone Vital Signs/I&O Vital Signs Date Time Temp Pulse Resp B/P (MAP) Pulse Ox O2 Delivery O2 Flow Rate FiO2 03/14/19 06:00 98.0 89 16 131/84 (100) 100 Room Air I&O- Last 24 Hours up to 6 AM 03/14/19 06:00 Intake Total 2030 ml Output Total 1100 ml Balance 930 ml Laboratory Data Microbiology Microbiology 03/07/19 Blood Culture - Final, Complete NO GROWTH AFTER 5 DAYS LAITH JUÁREZ MD Mar 14, 2019 11:33
[2019-03-14] MEDS ORDERED: NS 1,000 ML IV SCH (12:00)
[2019-03-14 14:00] VITALS: BP 114/81
[2019-03-14 22:00] VITALS: BP 113/81
[2019-03-15] MEDS: ONDANSETRON 4 MG ORAL DISINTEGRATING TAB (Q0162 PER 1MG) SL SCH ×4 (05:42→23:45)
[2019-03-15 06:00] VITALS: BP 115/84
[2019-03-15] MEDS: FOLIC ACID 1 MG TAB PO SCH (08:30)
[2019-03-15] MEDS: MULTIVITAMINS/MINERALS THERAP 1 TAB PO SCH (08:31)
[2019-03-15] MEDS: PANTOPRAZOLE 20 MG TAB PO SCH (08:31)
[2019-03-15] MEDS: MAGNESIUM OXIDE 400 MG TAB (MAG-OX) PO SCH ×2 (08:31→21:57)
--- NOTE | 2019-03-15 15:17 | IPNPDOC ---
Subjective Date Seen The patient was seen on 03/15/19. Subjective Chief Complaint/HPI Patient became very argumentative when informed that he is ready to be discharged but as per patient, he is not ready to go home. [facility]. After 1. He refused to be examined and asked me to leave and get him another physician General: Reports: ROS Unobtainable (refused) Objective Physical Examination Chest Exam: Positive: Clear to auscultation Heart Exam: Positive: Regular Rhythm, Normal S1, Normal S2 Abdomen Exam: Positive: Normal bowel sounds, Soft Extremity Exam: Positive: Normal pulses Skin Exam: Positive: Nl turgor and temperature Neuro Exam: Positive: Normal Speech, Strength at 5/5 X4 ext, Cranial Nerves 3- 12 NL Psych Exam: Positive: Mood NL, Oriented x 3 Assessment /Plan Problems (1) Alcohol dependence Status: Acute Problem Text: presented with acute alcohol intoxication on admission which has resolved Patient presented with acute dehydration and generalized weakness which resolved with IV fluids Patient also presented with lactic acidemia secondary to chronic alcohol liver disease, which is resolved Continue physical therapy and occupational therapy Patient refuses to be discharged was to be discharged to a [facility] or rehabilitation center Discussed with case management. pillar worker they're looking into possible discharge to [facility] MRI of the brain was ordered by the previous M.D., but patient has declined (2) GUANAKITO (acute kidney injury) Status: Acute Problem Text: Resolved with IV fluids (3) Hypomagnesemia Status: Acute Problem Text: Corrected (4) Hypokalemia Status: Acute Problem Text: Corrected (5) Seizure Status: Chronic Problem Text: History of seizure disorder versus malingering disorder Stable at the present time Plan/VTE VTE Prophylaxis Ordered?: Yes VTE Exclusion Mechanical Proph: N/A:VTE Prophy Ordered VTE Exclusion Pharmacological: Thrombocytopenia VS, I&O, 24H, Fishbone Vital Signs/I&O Vital Signs Date Time Temp Pulse Resp B/P (MAP) Pulse Ox O2 Delivery O2 Flow Rate FiO2 03/15/19 06:00 99.0 85 20 115/84 (94) 99 03/14/19 14:00 Room Air I&O- Last 24 Hours up to 6 AM 03/15/19 06:00 Intake Total 4960 ml Output Total 2450 ml Balance 2510 ml Laboratory Data Microbiology Microbiology 03/07/19 Blood Culture - Final, Complete NO GROWTH AFTER 5 DAYS MINA CORONA MD Mar 15, 2019 15:17
--- NOTE | 2019-03-15 21:57 | REPVR ---
PROCEDURE INFORMATION: Exam: MR Head Without Contrast Exam date and time: 03/15/2019 8:50 PM Age: 58 years old Clinical indication: Alteration of consciousness and altered mental status/memory loss; Transient alteration of awareness; Confusion or disorientation; Patient HX: Confusion, unbalanced gait, priors on pacs, PT unable to continue scan; Additional info: Gait instability R/O cerebellar stroke TECHNIQUE: Imaging protocol: MR of the head without contrast. COMPARISON: MRI-Brain without Contrast 11/01/2018 1:09 PM FINDINGS: Limitations: Only DWI and ADC images. Brain: There are large areas of encephalomalacia in the inferior frontal and right temporal lobes. There is increased signal within the white matter on the DWI images with smaller areas of more focal increased signal, without corresponding decreased signal on ADC to indicate acute infarct. This was also present on the prior DWI images volume. It is likely secondary to microvascular white matter disease with T2 shine through. This cannot be corroborated without additional images. No cerebellar infarct. Ventricles: Ventricular dilatation appears secondary to volume loss and is stable compared with prior scan. IMPRESSION: 1. Extensive microvascular disease with areas of encephalomalacia in frontal and right temporal lobes unchanged from prior scan. 2. No evidence of acute infarct on limited scan. Electronically signed by: Matthew Velazquez On 03/15/2019 21:57:22 PM
[2019-03-15 22:00] VITALS: BP 123/82
[2019-03-16 06:00] VITALS: BP 134/96
[2019-03-16] MEDS: ONDANSETRON 4 MG ORAL DISINTEGRATING TAB (Q0162 PER 1MG) SL SCH ×3 (06:03→18:23)
[2019-03-16] MEDS: PANTOPRAZOLE 20 MG TAB PO SCH (09:06)
[2019-03-16] MEDS: MULTIVITAMINS/MINERALS THERAP 1 TAB PO SCH (09:06)
[2019-03-16] MEDS: MAGNESIUM OXIDE 400 MG TAB (MAG-OX) PO SCH ×2 (09:06→21:17)
[2019-03-16] MEDS: FOLIC ACID 1 MG TAB PO SCH (09:06)
[2019-03-16 14:00] VITALS: BP 100/58
[2019-03-17] MEDS: ONDANSETRON 4 MG ORAL DISINTEGRATING TAB (Q0162 PER 1MG) SL SCH ×4 (00:16→18:41)
[2019-03-17 06:00] VITALS: BP 124/85
[2019-03-17 06:26] LABS: HEMATOCRIT 28.2 % (42.0-52.0); HEMOGLOBIN 8.7 g/dl (13.5-17.5); MEAN CORPUSCULAR HEMOGLOBIN 29.1 pg (27.0-33.0); MEAN CORPUSCULAR HGB CONC 30.9 g/dl (32.0-36.5); MEAN CORPUSCULAR VOLUME 94.3 fl (80.0-96.0); PLATELET COUNT, AUTOMATED 204 10^3/uL (150-450); RED BLOOD COUNT 2.99 10^6/uL (4.30-6.10); WHITE BLOOD COUNT 2.8 10^3/uL (4.0-10.0)
[2019-03-17 06:51] LABS: BLOOD UREA NITROGEN 9 MG/DL (7-18); CALCIUM LEVEL 8.6 MG/DL (8.5-10.1); CARBON DIOXIDE LEVEL 26 MEQ/L (21-32); CHLORIDE LEVEL 110 MEQ/L (98-107); GLOMERULAR FILTRATION RATE > 60.0 (>56); GLUCOSE, FASTING 85 MG/DL (70-100); POTASSIUM SERUM 4.2 MEQ/L (3.5-5.1); SODIUM LEVEL 141 MEQ/L (136-145)
[2019-03-17] MEDS: FOLIC ACID 1 MG TAB PO SCH (08:49)
[2019-03-17] MEDS: PANTOPRAZOLE 20 MG TAB PO SCH (08:49)
[2019-03-17] MEDS: MULTIVITAMINS/MINERALS THERAP 1 TAB PO SCH (08:49)
[2019-03-17] MEDS: MAGNESIUM OXIDE 400 MG TAB (MAG-OX) PO SCH ×2 (08:50→20:17)
[2019-03-18] MEDS: ONDANSETRON 4 MG ORAL DISINTEGRATING TAB (Q0162 PER 1MG) SL SCH ×3 (00:15→11:47)
[2019-03-18 06:00] VITALS: BP 128/87
[2019-03-18] MEDS: MULTIVITAMINS/MINERALS THERAP 1 TAB PO SCH (08:40)
[2019-03-18] MEDS: FOLIC ACID 1 MG TAB PO SCH (08:40)
[2019-03-18] MEDS: PANTOPRAZOLE 20 MG TAB PO SCH (08:40)
[2019-03-18] MEDS: MAGNESIUM OXIDE 400 MG TAB (MAG-OX) PO SCH (08:41)
--- NOTE | 2019-03-18 19:05 | DS.PDOC ---
Discharge Summary General Date of Admission Mar 07, 2019 at 20:46 Date of Discharge 03/18/19 Attending Physician: ANASTASIA SINGH MD Discharge Summary PROCEDURES PERFORMED DURING STAY: None. ADMITTING DIAGNOSES: 1. Alcohol intoxication, altered mental status, electrolyte abnormalities. DISCHARGE DIAGNOSES: 1. Alcohol intoxication, altered mental status, Dr. abnormalities. COMPLICATIONS/CHIEF COMPLAINT: Alcohol Intoxication, Alcoholic Ketosis,Dehydratio. HISTORY OF PRESENT ILLNESS: 58-year-old male with past medical history of hemorrhagic CVA, alcohol abuse, was admitted for alcohol intoxication with alcoholic ketosis, lactic acidosis and electrolyte abnormalities. Patient was treated with aggressive IV hydration along with electrolyte replenishment, thiamine, folic acid, multivitamins. Patient has been stable since the initial acute management, awaiting plan regarding placement versus going back home. Patient was evaluated by physical therapy and cleared for discharge home. Patient wishes to go to assisted living, social professionals arranged for assisted living, but patient unwilling to pay the amount it would cost, hence, patient will be discharged home. Patient is clinically and hemodynamically stable for discharge at this time with outpatient follow-up. HOSPITAL COURSE: As above. DISCHARGE MEDICATIONS: Please see below. ALLERGIES: Please see below. PHYSICAL EXAMINATION: VITAL SIGNS: Please see below. GENERAL: No distress HEENT: Normocephalic, atraumatic, moist mucous membranes NECK: Supple CARDIOVASCULAR EXAMINATION: S1, S2, no murmurs RESPIRATORY EXAMINATION: Clear to auscultation, no wheezing ABDOMINAL EXAMINATION: Soft, nontender, nondistended, positive bowel sounds EXTREMITIES: Range of motion intact SKIN: No rash NEUROLOGICAL EXAMINATION: Alert and oriented 3, no focal deficits PSYCHIATRIC EXAMINATION: Calm and cooperative LABORATORY DATA: Please see below. PROGNOSIS: Guarded ACTIVITY: As tolerated. DIET: Cardiac DISCHARGE PLAN: Follow-up with PCP within 1-2 weeks DISPOSITION: 01 Home, Self-Care. DISCHARGE INSTRUCTIONS: 1. As above. DISCHARGE CONDITION: Stable. TIME SPENT ON DISCHARGE: Greater than 35 minutes. Vital Signs/I&Os Vital Signs Date Time Temp Pulse Resp B/P (MAP) Pulse Ox O2 Delivery O2 Flow Rate FiO2 03/18/19 06:00 99.0 79 18 128/87 (101) 100 Room Air I&O- Last 24 Hours up to 6 AM 03/18/19 06:00 Intake Total 3456 ml Balance 3456 ml Discharge Medications Scheduled Lisinopril (Lisinopril) Unknown Strength Tablet, 1 TAB PO DAILY, (Reported) CALLED [facility] - NO RECORD OF THIS MEDICATION BEING FILLED. Scheduled PRN Acetaminophen (Acetaminophen) 500 Mg Tablet, 1,000 MG PO Q6H PRN for PAIN, (Reported) Allergies Coded Allergies: ceftriaxone (Verified Adverse Reaction, Intermediate, FEELS LIKE "PASSING OUT", 08/17/18) ANASTASIA SINGH MD Mar 18, 2019 19:05
== END 2019-03-18 13:56 | disposition home or self-care (01) | DRG 683 ==
LOC: M ED 10:15 → EDBD 10:15 → M ED INP 20:46 → ENRESERVTM 21:43 → ENRESERVDT 21:43 → M MSPAV 22:06
PROVIDERS: ADMIT Internal Medicine; ATTEND Internal Medicine
DX: N17.9 Acute kidney failure, unspecified (principal); E87.2 Acidosis; F10.229 Alcohol dependence with intoxication, unspecified; E86.0 Dehydration; E87.6 Hypokalemia; E16.2 Hypoglycemia, unspecified; R74.0 Nonspecific elevation of levels of transaminase and lactic acid dehydrogenase [LDH]; E86.1 Hypovolemia; Z79.899 Other long term (current) drug therapy; Z88.1 Allergy status to other antibiotic agents; I10 Essential (primary) hypertension; R41.82 Altered mental status, unspecified; D69.6 Thrombocytopenia, unspecified; R94.5 Abnormal results of liver function studies; K70.9 Alcoholic liver disease, unspecified; E83.42 Hypomagnesemia; G40.909 Epilepsy, unspecified, not intractable, without status epilepticus; R53.1 Weakness

== ENCOUNTER 2019-04-23 11:11 | Inpatient (IN) | payer OTHER ==
[~2019-04-23] VITALS: Ht 185.4 cm; Wt 77.6 kg
[~2019-04-23 11:11] MED LIST changes: +ACET-683 PO; +CYAN100050; +LISI10TA4 PO; +MULTIVITAMINS/MINERALS THERAP 1 TAB PO SCH
[2019-04-23 11:56] LABS: BASO # 0.1 10^3/uL (0.0-0.2); BASO % 1.1 % (0.0-1.0); EOS # 0.1 10^3/uL (0.0-0.5); EOS % 1.1 % (0.0-3.0); HEMATOCRIT 40.2 % (42.0-52.0); HEMOGLOBIN 12.5 g/dl (13.5-17.5); LYMPH % 18.2 % (24.0-44.0); MEAN CORPUSCULAR HEMOGLOBIN 30.9 pg (27.0-33.0); MEAN CORPUSCULAR HGB CONC 31.1 g/dl (32.0-36.5); MEAN CORPUSCULAR VOLUME 99.5 fl (80.0-96.0); MONO # 0.2 10^3/uL (0.0-0.8); MONO % 3.8 % (0.0-5.0); NEUTROPHILS % 75.2 % (36.0-66.0); PLATELET COUNT, AUTOMATED 126 10^3/uL (150-450); RED BLOOD COUNT 4.04 10^6/uL (4.30-6.10); WHITE BLOOD COUNT 5.3 10^3/uL (4.0-10.0)
[2019-04-23] MEDS ORDERED: NS 1,000 ML IV ONE ×2 (12:15→16:45)
[2019-04-23] MEDS ORDERED: LORazepam 2 MG TAB PO PRN (12:15)
[2019-04-23 12:29] LABS: BLOOD UREA NITROGEN 25 MG/DL (7-18); CALCIUM LEVEL 7.9 MG/DL (8.5-10.1); CARBON DIOXIDE LEVEL 20 MEQ/L (21-32); CHLORIDE LEVEL 109 MEQ/L (98-107); CREATININE FOR GFR 0.89 MG/DL (0.70-1.30); GLOMERULAR FILTRATION RATE > 60.0 (>56); GLUCOSE, FASTING 74 MG/DL (70-100); POTASSIUM SERUM 3.1 MEQ/L (3.5-5.1); SODIUM LEVEL 150 MEQ/L (136-145)
[2019-04-23 12:37] LABS: INR 1.06; PARTIAL THROMBOPLASTIN TIME 27.4 SECONDS (25.0-38.4); PROTHROMBIN TIME 13.6 SECONDS (11.8-14.0)
[2019-04-23 12:56] LABS: ALBUMIN 3.2 GM/DL (3.2-5.2); BILIRUBIN,DIRECT 0.6 MG/DL (0.0-0.2); BILIRUBIN,TOTAL 1.2 MG/DL (0.2-1.0); TOTAL PROTEIN 7.8 GM/DL (6.4-8.2)
[2019-04-23 14:15] LABS: INFLUENZA A AMPLIFICATION NEGATIVE (NEGATIVE); INFLUENZA B AMPLIFICATION NEGATIVE (NEGATIVE)
[2019-04-23 14:27] LABS: MAGNESIUM LEVEL 1.7 MG/DL (1.8-2.4); OSMOLALITY SERUM 399 MOSM/KG (275-295); PHOSPHORUS LEVEL 3.9 MG/DL (2.5-4.9)
[2019-04-23] MEDS ORDERED: MAGN400T2 PO (15:25)
--- NOTE | 2019-04-23 16:31 | REP ---
REASON: Generalized malaise. COMPARISON: Multiple, the latest 03/07/2019. FINDINGS: The technique utilized in obtaining the radiograph has magnified the cardiac silhouette and accentuated the interstitial markings. The superior mediastinal structures are midline. The cardiac silhouette is unremarkable in size, shape, and position. The diaphragmatic surfaces of the lungs are regular, and the costophrenic angles are clear. The pulmonary tellez are clear. The imaged osseous structures are intact. IMPRESSION: There is no acute cardiopulmonary disease. No significant change. Unreviewed
--- NOTE | 2019-04-23 16:42 | HPEPDOC ---
General Date of Admission 04/23/19 Date of Service: Apr 23, 2019 Chief Complaint The patient is a 58-year-old male admitted with a reason for visit of Gen Med Complaint. 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 At the arraignment he was found to be intoxicated soiled in feces and urine so was brought to the ED . He complained of feeling very tired and weak for the past few days. He complained of feeling dizzy when he stood and feeling disorganized unable to get out of chair even to go to the bathroom. He denied any fever though complained of chiils. denied any cough or phlegm. denied of any falls or trauma recently. In the ED he was found to be intoxicated and dehydrated with hypernatremia, hypokalemia and hypomagnesemia and an alcohol level of 0.320. So was admitted to the hospital. Home Medications Scheduled Magnesium Oxide (Magnesium Oxide) 400 Mg Tablet, 400 MG PO DAILY, (Reported) Allergies Coded Allergies: ceftriaxone (Verified Adverse Reaction, Intermediate, FEELS LIKE "PASSING OUT", 08/17/18) A-FIB/CHADSVASC A-FIB History Current/History of A-Fib/PAF?: No Review of Systems Other systems As in HPI Physical Examination General Exam: Positive: Alert, Cooperative, No Acute Distress Eye Exam: Positive: PERRLA, Conjunctiva & lids normal, EOMI; Negative: Sclera icteric ENT Exam: Positive: Atraumatic, Mucous membr. moist/pink, Pharynx Normal Neck Exam: Positive: Supple; Negative: JVD, thyromegaly Chest Exam: Positive: Clear to auscultation, Normal air movement Heart Exam: Positive: Rate Normal, Regular Rhythm, Normal S1, Normal S2; Negative: Murmurs, Rubs Abdomen Exam: Positive: Normal bowel sounds, Soft; Negative: Tenderness, Hepatospenomegaly Skin Exam: Positive: Nl turgor and temperature; Negative: Breakdown, Lesion Psych Exam: Positive: Memory Intact, Oriented x 3 Vital Signs Vital Signs Date Time Temp Pulse Resp B/P (MAP) Pulse Ox O2 Delivery O2 Flow Rate FiO2 04/23/19 15:49 97.3 17 04/23/19 12:59 110 140/98 04/23/19 12:41 99 Laboratory Data Labs 24H Laboratory Tests 2 04/23/19 11:45: Immature Granulocyte % (Auto) 0.6, Neutrophils (%) (Auto) 75.2H, Lymphocytes (%) (Auto) 18.2L, Monocytes (%) (Auto) 3.8, Eosinophils (%) (Auto) 1.1, Basophils (%) (Auto) 1.1H, Neutrophils # (Auto) 4.0, Lymphocytes # (Auto) 1.0L, Monocytes # (Auto) 0.2, Eosinophils # (Auto) 0.1, Basophils # (Auto) 0.1, Nucleated Red Blood Cells % (auto) 0.0, Prothrombin Time 13.6, Prothromb Time International Ratio 1.06, Activated Partial Thromboplast Time 27.4, Anion Gap 21H, Glomerular Filtration Rate > 60.0, Osmolality 399H, Calcium Level 7.9L, Phosphorus Level 3.9, Magnesium Level 1.7L, Total Bilirubin 1.2H, Direct Bilirubin 0.6H, Aspartate Amino Transf (AST/SGOT) 88H, Alanine Aminotransferase (ALT/SGPT) 42, Alkaline Phosphatase 198H, Total Protein 7.8, Albumin 3.2, Albumin/Globulin Ratio 0.70L, Ethyl Alcohol Level 0.320H 04/23/19 13:39: Influenza Type A (RT-PCR) NEGATIVE, Influenza Type B (RT-PCR) NEGATIVE, Respiratory Syncytial Virus (RT-PCR NEGATIVE 04/23/19 14:38: Urine Color YELLOW, Urine Appearance CLEAR, Urine pH 6.0, Urine Specific [place] 1.024, Urine Protein 2+H, Urine Glucose (UA) NEGATIVE, Urine Ketones 2+H, Urine Blood 1+H, Urine Nitrite NEGATIVE, Urine Bilirubin NEGATIVE, Urine Urobilinogen 4.0H, Urine Leukocyte Esterase NEGATIVE, Urine WBC (Auto) 0, Urine RBC (Auto) 4H, Urine Hyaline Casts (Auto) 1, Urine Bacteria (Auto) NEGATIVE, Urine Squamous Epithelial Cells 0, Urine Mucus (Auto) SMALL, Urine Sperm (Auto) CBC/BMP Laboratory Tests 04/23/19 11:45 Assessment/Plan This is a 58-year-old chronic alcoholic, alcoholic liver disease, h/o alcoholic delirium and alcohol induced acute encephalopathy, alcohol withdrawal seizures, intracranial hemorrhage 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 At the arraignment he was found to be intoxicated soiled in feces and urine so was brought to the ED . He complained of feeling very tired and weak for the past few days. He complained of feeling dizzy when he stood and feeling disorganized unable to get out of chair even to go to the bathroom. He denied any fever though complained of chiils. denied any cough or phlegm. denied of any falls or trauma recently. In the ED he was found to be intoxicated and dehydrated with hypernatremia, hypokalemia and hypomagnesemia and an alcohol level of 0.320. So was admitted to the hospital. Alcohol intoxication No signs of withdrawal at present will place on CIWA protocol serax tid High anion gap metabolic acidosis due to alcohol. hypernatremia due to severe dehydration and free water deficit from alcohol NS bolus then continuous IVF Hypokalemia replaced Hypomagnesemia replaced Severe dehydaration Plan / VTE VTE Prophylaxis Ordered?: Yes RUY ADRIAN MD Apr 23, 2019 16:06
[2019-04-23] MEDS ORDERED: MAG SULF 1GM/100ML (MAG RUN) 1 GM in IV 1 EA IV ONE (17:00)
[2019-04-23] MEDS ORDERED: THIAMINE 100 MG TAB PO SCH (17:00)
[2019-04-23 17:25] VITALS: BP 152/99
[2019-04-23 18:00] VITALS: BP 152/99
[2019-04-23] MEDS: FOLIC ACID 1 MG TAB PO SCH (18:25)
[2019-04-23] MEDS: POTASSIUM CHLORIDE INJ 40 MEQ in NS 0.45% 1,000 ML IV SCH (18:26)
[2019-04-23 20:00] VITALS: BP 150/100
[2019-04-23] MEDS: LORazepam 2 MG TAB PO PRN (20:21)
[2019-04-23] MEDS: OXAZEPAM 10 MG CAP PO SCH (20:21)
[2019-04-23 21:32] LABS: BLOOD UREA NITROGEN 15 MG/DL (7-18); CALCIUM LEVEL 7.5 MG/DL (8.5-10.1); CARBON DIOXIDE LEVEL 21 MEQ/L (21-32); CHLORIDE LEVEL 100 MEQ/L (98-107); CREATININE FOR GFR 0.96 MG/DL (0.70-1.30); GLOMERULAR FILTRATION RATE > 60.0 (>56); GLUCOSE, FASTING 364 MG/DL (70-100); POTASSIUM SERUM 3.2 MEQ/L (3.5-5.1); SODIUM LEVEL 137 MEQ/L (136-145)
[2019-04-23 21:40] VITALS: BP 150/100
[2019-04-23 22:00] VITALS: BP 150/100
[2019-04-24] VITALS (13 sets, daily range): BP systolic 128–150; BP diastolic 89–100
[2019-04-24] MEDS: POTASSIUM CHLORIDE INJ 40 MEQ in NS 0.45% 1,000 ML IV SCH ×4 (01:57→21:11)
[2019-04-24] MEDS: LORazepam 2 MG TAB PO PRN ×2 (01:57→18:48)
[2019-04-24 07:27] LABS: HEMATOCRIT 31.2 % (42.0-52.0); MEAN CORPUSCULAR HEMOGLOBIN 31.6 pg (27.0-33.0); MEAN CORPUSCULAR HGB CONC 32.7 g/dl (32.0-36.5); MEAN CORPUSCULAR VOLUME 96.6 fl (80.0-96.0); RED BLOOD COUNT 3.23 10^6/uL (4.30-6.10); WHITE BLOOD COUNT 3.3 10^3/uL (4.0-10.0)
[2019-04-24 08:00] LABS: ALBUMIN 2.7 GM/DL (3.2-5.2); ALT/SGPT 34 U/L (12-78); BILIRUBIN,TOTAL 2.8 MG/DL (0.2-1.0); BLOOD UREA NITROGEN 11 MG/DL (7-18); CALCIUM LEVEL 7.9 MG/DL (8.5-10.1); CARBON DIOXIDE LEVEL 32 MEQ/L (21-32); CHLORIDE LEVEL 101 MEQ/L (98-107); CREATININE FOR GFR 0.73 MG/DL (0.70-1.30); GLOMERULAR FILTRATION RATE > 60.0 (>56); GLUCOSE, FASTING 117 MG/DL (70-100); SODIUM LEVEL 137 MEQ/L (136-145); TOTAL PROTEIN 5.9 GM/DL (6.4-8.2)
[2019-04-24 08:02] LABS: HEMOGLOBIN 10.2 g/dl (13.5-17.5); PLATELET COUNT, AUTOMATED 73 10^3/uL (150-450)
[2019-04-24] MEDS ORDERED: ENOXAPARIN 40 MG/0.4 ML SYRINGE (J1650) SC SCH (09:00)
[2019-04-24] MEDS ORDERED: FOLIC ACID 1 MG TAB PO SCH (09:00)
[2019-04-24] MEDS: OXAZEPAM 10 MG CAP PO SCH ×3 (09:00→21:54)
[2019-04-24] MEDS: FOLIC ACID 1 MG TAB PO SCH ×2 (09:00→09:07)
[2019-04-24] MEDS: THIAMINE 100 MG TAB PO SCH ×2 (09:08→21:54)
[2019-04-24] MEDS: MULTIVITAMINS/MINERALS THERAP 1 TAB PO SCH (09:08)
--- NOTE | 2019-04-24 10:30 | IPNPDOC ---
Subjective Date Seen The patient was seen on 04/24/19. Subjective Chief Complaint/HPI Does not have any complaints today. As per nurses still incontinent of urine and stool. no signs of withdrawal. Objective Physical Examination General Exam: Positive: Alert, Cooperative, No Acute Distress Eye Exam: Positive: PERRLA, Conjunctiva & lids normal, EOMI; Negative: Sclera icteric ENT Exam: Positive: Atraumatic, Mucous membr. moist/pink, Pharynx Normal Neck Exam: Positive: Supple; Negative: JVD, thyromegaly Chest Exam: Positive: Clear to auscultation, Normal air movement Heart Exam: Positive: Rate Normal, Regular Rhythm, Normal S1, Normal S2; Negative: Murmurs, Rubs Abdomen Exam: Positive: Normal bowel sounds, Soft; Negative: Tenderness, Hepatospenomegaly Skin Exam: Positive: Nl turgor and temperature; Negative: Breakdown, Lesion Psych Exam: Positive: Memory Intact, Oriented x 3 Assessment /Plan Assessment This is a 58-year-old chronic alcoholic, alcoholic liver disease, h/o alcoholic delirium and alcohol induced acute encephalopathy, alcohol withdrawal seizures, intracranial hemorrhage thought to be due to TBI during intoxication, recurrent admissions for alcoholic related pancreatitis, brought in by police who had gone to his address to serve him legal documents and to bring him in front of a Chronic Disease Manager . At the arraignment he was found to be intoxicated soiled in feces and urine so was brought to the ED . He complained of feeling very tired and weak for the past few days. He complained of feeling dizzy when he stood and feeling disorganized unable to get out of chair even to go to the bathroom. He denied any fever though complained of chiils. denied any cough or phlegm. denied of any falls or trauma recently. In the ED he was found to be intoxicated and dehydrated with hypernatremia, hypokalemia and hypomagnesemia and an alcohol level of 0.320. So was admitted to the hospital. Alcohol intoxication No signs of withdrawal at present on CIWA protocol serax tid High anion gap metabolic acidosis with metabolic alkalosis due to alcohol and sever dehydration now acidosis has resolved continue IVF. Hypernatremia due to severe dehydration and free water deficit from alcohol resolved Hypokalemia replaced Hypomagnesemia replaced Severe dehydaration continue IVF improving. Plan/VTE VTE Prophylaxis Ordered?: Yes VS, I&O, 24H, Fishbone Vital Signs/I&O Vital Signs Date Time Temp Pulse Resp B/P (MAP) Pulse Ox O2 Delivery O2 Flow Rate FiO2 04/24/19 10:00 86 140/98 04/24/19 05:59 96.0 20 96 Room Air I&O- Last 24 Hours up to 6 AM 04/24/19 05:59 Intake Total 1960 ml Balance 1960 ml Laboratory Data 24H LABS Laboratory Tests 2 04/23/19 11:45: Immature Granulocyte % (Auto) 0.6, Neutrophils (%) (Auto) 75.2H, Lymphocytes (%) (Auto) 18.2L, Monocytes (%) (Auto) 3.8, Eosinophils (%) (Auto) 1.1, Basophils (%) (Auto) 1.1H, Neutrophils # (Auto) 4.0, Lymphocytes # (Auto) 1.0L, Monocytes # (Auto) 0.2, Eosinophils # (Auto) 0.1, Basophils # (Auto) 0.1, Nucleated Red Blood Cells % (auto) 0.0, Prothrombin Time 13.6, Prothromb Time International Ratio 1.06, Activated Partial Thromboplast Time 27.4, Anion Gap 21H, Glomerular Filtration Rate > 60.0, Osmolality 399H, Calcium Level 7.9L, Phosphorus Level 3.9, Magnesium Level 1.7L, Total Bilirubin 1.2H, Direct Bilirubin 0.6H, Aspartate Amino Transf (AST/SGOT) 88H, Alanine Aminotransferase (ALT/SGPT) 42, Alkaline Phosphatase 198H, Total Protein 7.8, Albumin 3.2, Albumin/Globulin Ratio 0.70L, Ethyl Alcohol Level 0.320H 04/23/19 13:39: Influenza Type A (RT-PCR) NEGATIVE, Influenza Type B (RT-PCR) NEGATIVE, Respiratory Syncytial Virus (RT-PCR NEGATIVE 04/23/19 14:38: Urine Color YELLOW, Urine Appearance CLEAR, Urine pH 6.0, Urine Specific [place] 1.024, Urine Protein 2+H, Urine Glucose (UA) NEGATIVE, Urine Ketones 2+H, Urine Blood 1+H, Urine Nitrite NEGATIVE, Urine Bilirubin NEGATIVE, Urine Urobilinogen 4.0H, Urine Leukocyte Esterase NEGATIVE, Urine WBC (Auto) 0, Urine RBC (Auto) 4H, Urine Hyaline Casts (Auto) 1, Urine Bacteria (Auto) NEGATIVE, Urine Squamous Epithelial Cells 0, Urine Mucus (Auto) SMALL, Urine Sperm (Auto) 04/23/19 20:48: Anion Gap 16, Glomerular Filtration Rate > 60.0, Calcium Level 7.5L 04/24/19 06:32: Nucleated Red Blood Cells % (auto) 0.0, Immature Platelet Fraction 4.1, Anion Gap 4L, Glomerular Filtration Rate > 60.0, Calcium Level 7.9L, Total Bilirubin 2.8#H, Aspartate Amino Transf (AST/SGOT) 63H, Alanine Aminotransferase (ALT/SGPT) 34, Alkaline Phosphatase 160H, Total Protein 5.9#L, Albumin 2.7L, Albumin/Globulin Ratio 0.84L CBC/BMP Laboratory Tests 04/23/19 11:45 04/23/19 20:48 04/24/19 06:32 RUY ADRIAN MD Apr 24, 2019 10:30
[2019-04-24] MEDS: MAGNESIUM OXIDE 400 MG TAB (MAG-OX) PO SCH ×2 (10:52→21:54)
[2019-04-24] MEDS: POTASSIUM CHLORIDE 10 MEQ SR TABLET PO SCH ×2 (10:52→21:54)
[2019-04-25] VITALS (8 sets, daily range): BP systolic 130–156; BP diastolic 80–88
[2019-04-25] MEDS: POTASSIUM CHLORIDE INJ 40 MEQ in NS 0.45% 1,000 ML IV SCH (03:59)
[2019-04-25 06:58] LABS: BASO % 0.9 % (0.0-1.0); EOS # 0.1 10^3/uL (0.0-0.5); EOS % 3.9 % (0.0-3.0); HEMATOCRIT 31.6 % (42.0-52.0); HEMOGLOBIN 10.3 g/dl (13.5-17.5); LYMPH % 43.4 % (24.0-44.0); MEAN CORPUSCULAR HEMOGLOBIN 31.9 pg (27.0-33.0); MEAN CORPUSCULAR HGB CONC 32.6 g/dl (32.0-36.5); MEAN CORPUSCULAR VOLUME 97.8 fl (80.0-96.0); MONO # 0.1 10^3/uL (0.0-0.8); MONO % 5.7 % (0.0-5.0); NEUTROPHILS % 45.2 % (36.0-66.0); RED BLOOD COUNT 3.23 10^6/uL (4.30-6.10); WHITE BLOOD COUNT 2.3 10^3/uL (4.0-10.0)
[2019-04-25 07:00] LABS: PLATELET COUNT, AUTOMATED 57 10^3/uL (150-450)
[2019-04-25 07:32] LABS: BLOOD UREA NITROGEN 5 MG/DL (7-18); CALCIUM LEVEL 8.5 MG/DL (8.5-10.1); CARBON DIOXIDE LEVEL 32 MEQ/L (21-32); CHLORIDE LEVEL 104 MEQ/L (98-107); CREATININE FOR GFR 0.63 MG/DL (0.70-1.30); GLOMERULAR FILTRATION RATE > 60.0 (>56); GLUCOSE, FASTING 113 MG/DL (70-100); MAGNESIUM LEVEL 1.6 MG/DL (1.8-2.4); PHOSPHORUS LEVEL 0.9 MG/DL (2.5-4.9); POTASSIUM SERUM 3.5 MEQ/L (3.5-5.1); SODIUM LEVEL 139 MEQ/L (136-145)
[2019-04-25] MEDS: OXAZEPAM 10 MG CAP PO SCH ×3 (08:17→20:27)
[2019-04-25] MEDS: POTASSIUM CHLORIDE 10 MEQ SR TABLET PO SCH ×2 (08:17→20:26)
[2019-04-25] MEDS: THIAMINE 100 MG TAB PO SCH ×2 (08:18→20:26)
[2019-04-25] MEDS: MAGNESIUM OXIDE 400 MG TAB (MAG-OX) PO SCH ×2 (08:18→20:26)
[2019-04-25] MEDS: MULTIVITAMINS/MINERALS THERAP 1 TAB PO SCH (08:18)
[2019-04-25] MEDS: FOLIC ACID 1 MG TAB PO SCH ×2 (08:18→08:19)
--- NOTE | 2019-04-25 10:38 | IPNPDOC ---
Subjective Date Seen The patient was seen on 04/25/19. Subjective Chief Complaint/HPI Continues to have stool and urinary incontinence. No signs of withdrawal at present. Says this is the problem at home he will have sudden urge and not able to make it to the bathroom in time. Objective Physical Examination General Exam: Positive: Alert, Cooperative, No Acute Distress Eye Exam: Positive: PERRLA, Conjunctiva & lids normal, EOMI; Negative: Sclera icteric ENT Exam: Positive: Atraumatic, Mucous membr. moist/pink, Pharynx Normal Neck Exam: Positive: Supple; Negative: JVD, thyromegaly Chest Exam: Positive: Clear to auscultation, Normal air movement Heart Exam: Positive: Rate Normal, Regular Rhythm, Normal S1, Normal S2; Negative: Murmurs, Rubs Abdomen Exam: Positive: Normal bowel sounds, Soft; Negative: Tenderness, Hepatospenomegaly Skin Exam: Positive: Nl turgor and temperature; Negative: Breakdown, Lesion Psych Exam: Positive: Memory Intact, Oriented x 3 Assessment /Plan Assessment This is a 58-year-old chronic alcoholic, alcoholic liver disease, h/o alcoholic delirium and alcohol induced acute encephalopathy, alcohol withdrawal seizures, 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 At the arraignment he was found to be intoxicated soiled in feces and urine so was brought to the ED . He complained of feeling very tired and weak for the past few days. He complained of feeling dizzy when he stood and feeling disorganized unable to get out of chair even to go to the bathroom. He denied any fever though complained of chiils. denied any cough or phlegm. denied of any falls or trauma recently. In the ED he was found to be intoxicated and dehydrated with hypernatremia, hypokalemia and hypomagnesemia and an alcohol level of 0.320. So was admitted to the hospital. Alcohol intoxication No signs of withdrawal at present on CIWA protocol serax tid High anion gap metabolic acidosis with metabolic alkalosis due to alcohol and sever dehydration now acidosis has resolved continue IVF. Hypernatremia due to severe dehydration and free water deficit from alcohol resolved Hypokalemia replaced Hypomagnesemia replaced Severe dehydaration continue IVF improving. Plan/VTE VTE Prophylaxis Ordered?: Yes VS, I&O, 24H, Fishbone Vital Signs/I&O Vital Signs Date Time Temp Pulse Resp B/P (MAP) Pulse Ox O2 Delivery O2 Flow Rate FiO2 04/25/19 06:00 98.6 85 18 132/88 (103) 94 Room Air I&O- Last 24 Hours up to 6 AM 04/25/19 06:00 Intake Total 2420 ml Output Total 350 ml Balance 2070 ml Laboratory Data 24H LABS Laboratory Tests 2 04/25/19 06:45: Immature Granulocyte % (Auto) 0.9, Neutrophils (%) (Auto) 45.2, Lymphocytes (%) (Auto) 43.4, Monocytes (%) (Auto) 5.7H, Eosinophils (%) (Auto) 3.9H, Basophils (%) (Auto) 0.9, Neutrophils # (Auto) 1.0L, Lymphocytes # (Auto) 1.0L, Monocytes # (Auto) 0.1, Eosinophils # (Auto) 0.1, Basophils # (Auto) 0.0, Nucleated Red Blood Cells % (auto) 0.0, Immature Platelet Fraction 5.3, Anion Gap 3L, Glomerular Filtration Rate > 60.0, Calcium Level 8.5, Phosphorus Level 0.9#L, Magnesium Level 1.6L CBC/BMP Laboratory Tests 04/25/19 06:45 RUY ADRIAN MD Apr 25, 2019 10:38
[2019-04-25] MEDS ORDERED: SODIUM PHOSPHATE INJ 30 MMOL in D5W 500 ML IV ONE (11:00)
[2019-04-25] MEDS ORDERED: MAG SULF 1GM/100ML (MAG RUN) 1 GM in IV 1 EA IV ONE (11:00)
[2019-04-25] MEDS: LORazepam 2 MG TAB PO PRN (12:31)
[2019-04-25] MEDS: K-PHOS ORIGINAL (POT.ACID PHOSPHATE) 500MG TAB PO SCH ×2 (12:34→20:26)
[2019-04-26 05:36] VITALS: BP 143/86
[2019-04-26 06:40] LABS: BASO % 0.6 % (0.0-1.0); EOS # 0.1 10^3/uL (0.0-0.5); HEMATOCRIT 28.9 % (42.0-52.0); HEMOGLOBIN 9.5 g/dl (13.5-17.5); LYMPH % 29.7 % (24.0-44.0); MEAN CORPUSCULAR HEMOGLOBIN 32.1 pg (27.0-33.0); MEAN CORPUSCULAR HGB CONC 32.9 g/dl (32.0-36.5); MEAN CORPUSCULAR VOLUME 97.6 fl (80.0-96.0); MONO # 0.2 10^3/uL (0.0-0.8); MONO % 4.5 % (0.0-5.0); NEUTROPHILS % 61.3 % (36.0-66.0); PLATELET COUNT, AUTOMATED 66 10^3/uL (150-450); RED BLOOD COUNT 2.96 10^6/uL (4.30-6.10); WHITE BLOOD COUNT 3.3 10^3/uL (4.0-10.0)
[2019-04-26 07:05] LABS: BLOOD UREA NITROGEN 5 MG/DL (7-18); CALCIUM LEVEL 8.1 MG/DL (8.5-10.1); CARBON DIOXIDE LEVEL 32 MEQ/L (21-32); CHLORIDE LEVEL 103 MEQ/L (98-107); CREATININE FOR GFR 0.56 MG/DL (0.70-1.30); GLOMERULAR FILTRATION RATE > 60.0 (>56); GLUCOSE, FASTING 96 MG/DL (70-100); POTASSIUM SERUM 3.2 MEQ/L (3.5-5.1); SODIUM LEVEL 139 MEQ/L (136-145)
[2019-04-26 08:38] LABS: MAGNESIUM LEVEL 1.7 MG/DL (1.8-2.4); PHOSPHORUS LEVEL 1.7 MG/DL (2.5-4.9)
[2019-04-26] MEDS: THIAMINE 100 MG TAB PO SCH ×2 (09:01→20:41)
[2019-04-26] MEDS: MULTIVITAMINS/MINERALS THERAP 1 TAB PO SCH (09:01)
[2019-04-26] MEDS: K-PHOS ORIGINAL (POT.ACID PHOSPHATE) 500MG TAB PO SCH ×2 (09:01→20:40)
[2019-04-26] MEDS: MAGNESIUM OXIDE 400 MG TAB (MAG-OX) PO SCH ×2 (09:01→20:41)
[2019-04-26] MEDS: POTASSIUM CHLORIDE 10 MEQ SR TABLET PO SCH ×2 (09:01→20:40)
[2019-04-26] MEDS: FOLIC ACID 1 MG TAB PO SCH (09:01)
[2019-04-26] MEDS: OXAZEPAM 10 MG CAP PO SCH ×3 (09:02→20:41)
--- NOTE | 2019-04-26 11:07 | IPNPDOC ---
Subjective Date Seen The patient was seen on 04/26/19. Subjective Chief Complaint/HPI Continues to be incontinent of stool and urine. Says he just cannot reach the bathroom in time as he has the bed alarms abd his urinal is too far. He denies falling inthe hospital. no fever or chills, sleeping well, no signs of withdrawal. Objective Physical Examination General Exam: Positive: Alert, Cooperative, No Acute Distress Eye Exam: Positive: PERRLA, Conjunctiva & lids normal, EOMI; Negative: Sclera icteric ENT Exam: Positive: Atraumatic, Mucous membr. moist/pink, Pharynx Normal Neck Exam: Positive: Supple; Negative: JVD, thyromegaly Chest Exam: Positive: Clear to auscultation, Normal air movement Heart Exam: Positive: Rate Normal, Regular Rhythm, Normal S1, Normal S2; Negative: Murmurs, Rubs Abdomen Exam: Positive: Normal bowel sounds, Soft; Negative: Tenderness, Hepatospenomegaly Skin Exam: Positive: Nl turgor and temperature; Negative: Breakdown, Lesion Psych Exam: Positive: Memory Intact, Oriented x 3 Assessment /Plan Assessment This is a 58-year-old chronic alcoholic, alcoholic liver disease, h/o alcoholic delirium and alcohol induced acute encephalopathy, alcohol withdrawal seizures, 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 At the arraignment he was found to be intoxicated soiled in feces and urine so was brought to the ED . He complained of feeling very tired and weak for the past few days. He complained of feeling dizzy when he stood and feeling disorganized unable to get out of chair even to go to the bathroom. He denied any fever though complained of chiils. denied any cough or phlegm. denied of any falls or trauma recently. In the ED he was found to be intoxicated and dehydrated with hypernatremia, hypokalemia and hypomagnesemia and an alcohol level of 0.320. So was admitted to the hospital. Alcohol intoxication No signs of withdrawal at present on CIWA protocol serax tid High anion gap metabolic acidosis with metabolic alkalosis due to alcohol and sever dehydration now acidosis has resolved continue IVF. Hypernatremia due to severe dehydration and free water deficit from alcohol resolved Hypokalemia replaced Hypomagnesemia replaced Severe dehydration continue IVF improving. Pancytopenia due to bone marrow suppression by heavy alcohol use and underlying cirrhosis. Now prominent after hydration. On presentation he was very dehydrated so did not show pancytopenia. Plan/VTE VTE Prophylaxis Ordered?: Yes VS, I&O, 24H, Fishbone Vital Signs/I&O Vital Signs Date Time Temp Pulse Resp B/P (MAP) Pulse Ox O2 Delivery O2 Flow Rate FiO2 04/26/19 05:36 98.8 81 18 143/86 (105) 95 Room Air I&O- Last 24 Hours up to 6 AM 04/26/19 06:00 Intake Total 1690 ml Output Total 250 ml Balance 1440 ml Laboratory Data 24H LABS Laboratory Tests 2 04/26/19 06:13: Immature Granulocyte % (Auto) 0.9, Neutrophils (%) (Auto) 61.3, Lymphocytes (%) (Auto) 29.7, Monocytes (%) (Auto) 4.5, Eosinophils (%) (Auto) 3.0, Basophils (%) (Auto) 0.6, Neutrophils # (Auto) 2.0, Lymphocytes # (Auto) 1.0L, Monocytes # (Auto) 0.2, Eosinophils # (Auto) 0.1, Basophils # (Auto) 0.0, Nucleated Red Blood Cells % (auto) 0.0, Anion Gap 4L, Glomerular Filtration Rate > 60.0, Calcium Level 8.1L CBC/BMP Laboratory Tests 04/26/19 06:13 RUY ADRIAN MD Apr 26, 2019 08:26
[2019-04-26] MEDS ORDERED: POTASSIUM CHLORIDE 10 MEQ SR TABLET PO ONE (12:00)
[2019-04-26 14:00] VITALS: BP 150/92
[2019-04-26 22:21] VITALS: BP 117/87
[2019-04-27 06:00] VITALS: BP 142/88
[2019-04-27 06:10] LABS: BASO % 0.9 % (0.0-1.0); EOS # 0.1 10^3/uL (0.0-0.5); EOS % 2.8 % (0.0-3.0); HEMATOCRIT 30.9 % (42.0-52.0); LYMPH # 1.1 10^3/uL (1.5-5.0); LYMPH % 26.6 % (24.0-44.0); MEAN CORPUSCULAR HEMOGLOBIN 32.2 pg (27.0-33.0); MEAN CORPUSCULAR HGB CONC 32.4 g/dl (32.0-36.5); MEAN CORPUSCULAR VOLUME 99.4 fl (80.0-96.0); MONO # 0.2 10^3/uL (0.0-0.8); MONO % 5.1 % (0.0-5.0); NEUTROPHILS # 2.7 10^3/uL (1.5-8.5); NEUTROPHILS % 63.4 % (36.0-66.0); RED BLOOD COUNT 3.11 10^6/uL (4.30-6.10); WHITE BLOOD COUNT 4.3 10^3/uL (4.0-10.0)
[2019-04-27 06:12] LABS: PLATELET COUNT, AUTOMATED 96 10^3/uL (150-450)
[2019-04-27 06:46] LABS: BLOOD UREA NITROGEN 6 MG/DL (7-18); CALCIUM LEVEL 8.3 MG/DL (8.5-10.1); CARBON DIOXIDE LEVEL 27 MEQ/L (21-32); CHLORIDE LEVEL 107 MEQ/L (98-107); CREATININE FOR GFR 0.59 MG/DL (0.70-1.30); GLOMERULAR FILTRATION RATE > 60.0 (>56); GLUCOSE, FASTING 90 MG/DL (70-100); POTASSIUM SERUM 4.1 MEQ/L (3.5-5.1); SODIUM LEVEL 137 MEQ/L (136-145)
[2019-04-27] MEDS: OXAZEPAM 10 MG CAP PO SCH ×3 (08:30→20:27)
[2019-04-27] MEDS: K-PHOS ORIGINAL (POT.ACID PHOSPHATE) 500MG TAB PO SCH ×2 (08:30→20:25)
[2019-04-27] MEDS: FOLIC ACID 1 MG TAB PO SCH (08:30)
[2019-04-27] MEDS: MAGNESIUM OXIDE 400 MG TAB (MAG-OX) PO SCH ×2 (08:30→20:26)
[2019-04-27] MEDS: MULTIVITAMINS/MINERALS THERAP 1 TAB PO SCH (08:30)
[2019-04-27] MEDS: POTASSIUM CHLORIDE 10 MEQ SR TABLET PO SCH ×2 (08:30→20:27)
[2019-04-27] MEDS ORDERED: SODIUM CHLORIDE 0.9% 1000ML IV ONE (11:00)
--- NOTE | 2019-04-27 11:02 | IPNPDOC ---
Subjective Date Seen The patient was seen on 04/27/19. Subjective Chief Complaint/HPI Still complains of dizziness when he stands up. Also says his legs are very weak. Still having incontinence. He says that he feels the urge but cannot make it to the bathroom in time Objective Physical Examination General Exam: Positive: Alert, Cooperative, No Acute Distress Eye Exam: Positive: PERRLA, Conjunctiva & lids normal, EOMI; Negative: Sclera icteric ENT Exam: Positive: Atraumatic, Mucous membr. moist/pink, Pharynx Normal Neck Exam: Positive: Supple; Negative: JVD, thyromegaly Chest Exam: Positive: Clear to auscultation, Normal air movement Heart Exam: Positive: Rate Normal, Regular Rhythm, Normal S1, Normal S2; Negative: Murmurs, Rubs Abdomen Exam: Positive: Normal bowel sounds, Soft; Negative: Tenderness, Hepatospenomegaly Skin Exam: Positive: Nl turgor and temperature; Negative: Breakdown, Lesion Psych Exam: Positive: Memory Intact, Oriented x 3 Assessment /Plan Assessment This is a 58-year-old chronic alcoholic, alcoholic liver disease, h/o alcohol ic delirium and alcohol induced acute encephalopathy, alcohol withdrawal seizures, 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 At the arraignment he was found to be intoxicated soiled in feces and urine so was brought to the ED . He complained of feeling very tired and weak for the past few days. He complained of feeling dizzy when he stood and feeling disorganized unable to get out of chair even to go to the bathroom. He denied any fever though complained of chills. denied any cough or phlegm. denied of any falls or trauma recently. In the ED he was found to be intoxicated and dehydrated with hypernatremia, hypokalemia and hypomagnesemia and an alcohol level of 0.320. So was admitted to the hospital. Dizziness and lightheadedness will check orthostats ivf bolus Alcohol intoxication No signs of withdrawal at present on CIWA protocol serax tid High anion gap metabolic acidosis with metabolic alkalosis due to alcohol and sever dehydration now acidosis has resolved Hypernatremia due to severe dehydration and free water deficit from alcohol resolved Hypokalemia replaced Hypomagnesemia replaced Severe dehydration improved. Pancytopenia due to bone marrow suppression by heavy alcohol use and underlying cirrhosis. Now prominent after hydration. On presentation he was very dehydrated so did not show pancytopenia. Plan/VTE VTE Prophylaxis Ordered?: Yes VS, I&O, 24H, Fishbone Vital Signs/I&O Vital Signs Date Time Temp Pulse Resp B/P (MAP) Pulse Ox O2 Delivery O2 Flow Rate FiO2 04/27/19 06:00 97.1 83 18 142/88 (106) 96 Room Air I&O- Last 24 Hours up to 6 AM 04/27/19 06:00 Intake Total 1170 ml Output Total 1100 ml Balance 70 ml Laboratory Data 24H LABS Laboratory Tests 2 04/27/19 05:40: Immature Granulocyte % (Auto) 1.2, Neutrophils (%) (Auto) 63.4, Lymphocytes (%) (Auto) 26.6, Monocytes (%) (Auto) 5.1H, Eosinophils (%) (Auto) 2.8, Basophils (%) (Auto) 0.9, Neutrophils # (Auto) 2.7, Lymphocytes # (Auto) 1.1L, Monocytes # (Auto) 0.2, Eosinophils # (Auto) 0.1, Basophils # (Auto) 0.0, Nucleated Red Blood Cells % (auto) 0.0, Immature Platelet Fraction 5.8, Anion Gap 3L, Gl omerular Filtration Rate > 60.0, Calcium Level 8.3L CBC/BMP Laboratory Tests 04/27/19 05:40 RUY ADRIAN MD Apr 27, 2019 10:54
[2019-04-27 13:38] VITALS: BP_SYST 134; BP_SYST 137; BP_SYST 138; BP_DIAS 112; BP_DIAS 90; BP_DIAS 93
[2019-04-27 14:00] VITALS: BP 134/90
[2019-04-27 20:00] VITALS: BP 139/89
[2019-04-27 20:44] VITALS: BP_SYST 120; BP_SYST 124; BP_SYST 125; BP_DIAS 89; BP_DIAS 90
[2019-04-28 06:46] VITALS: BP 136/85
[2019-04-28 06:49] LABS: BASO # 0.1 10^3/uL (0.0-0.2); BASO % 1.1 % (0.0-1.0); EOS # 0.2 10^3/uL (0.0-0.5); EOS % 2.9 % (0.0-3.0); HEMATOCRIT 32.3 % (42.0-52.0); HEMOGLOBIN 10.2 g/dl (13.5-17.5); LYMPH # 1.4 10^3/uL (1.5-5.0); LYMPH % 26.2 % (24.0-44.0); MEAN CORPUSCULAR HEMOGLOBIN 31.7 pg (27.0-33.0); MEAN CORPUSCULAR HGB CONC 31.6 g/dl (32.0-36.5); MEAN CORPUSCULAR VOLUME 100.3 fl (80.0-96.0); MONO # 0.5 10^3/uL (0.0-0.8); MONO % 8.6 % (0.0-5.0); NEUTROPHILS # 3.1 10^3/uL (1.5-8.5); NEUTROPHILS % 58.9 % (36.0-66.0); PLATELET COUNT, AUTOMATED 129 10^3/uL (150-450); RED BLOOD COUNT 3.22 10^6/uL (4.30-6.10); WHITE BLOOD COUNT 5.3 10^3/uL (4.0-10.0)
[2019-04-28 07:09] LABS: BLOOD UREA NITROGEN 6 MG/DL (7-18); CALCIUM LEVEL 8.4 MG/DL (8.5-10.1); CARBON DIOXIDE LEVEL 26 MEQ/L (21-32); CHLORIDE LEVEL 105 MEQ/L (98-107); GLOMERULAR FILTRATION RATE > 60.0 (>56); GLUCOSE, FASTING 84 MG/DL (70-100); POTASSIUM SERUM 4.3 MEQ/L (3.5-5.1); SODIUM LEVEL 136 MEQ/L (136-145)
[2019-04-28 08:20] LABS: MAGNESIUM LEVEL 1.9 MG/DL (1.8-2.4); PHOSPHORUS LEVEL 2.4 MG/DL (2.5-4.9)
[2019-04-28] MEDS: K-PHOS ORIGINAL (POT.ACID PHOSPHATE) 500MG TAB PO SCH ×2 (09:52→20:54)
[2019-04-28] MEDS: POTASSIUM CHLORIDE 10 MEQ SR TABLET PO SCH ×2 (09:52→20:54)
[2019-04-28] MEDS: FOLIC ACID 1 MG TAB PO SCH (09:52)
[2019-04-28] MEDS: MAGNESIUM OXIDE 400 MG TAB (MAG-OX) PO SCH ×2 (09:52→20:54)
[2019-04-28] MEDS: MULTIVITAMINS/MINERALS THERAP 1 TAB PO SCH (09:52)
[2019-04-28] MEDS: OXAZEPAM 10 MG CAP PO SCH ×2 (09:52→20:54)
[2019-04-28 14:00] VITALS: BP 142/87
[2019-04-28 21:41] VITALS: BP 105/74
[2019-04-29 03:15] VITALS: BP_SYST 100; BP_SYST 115; BP_DIAS 70; BP_DIAS 80
[2019-04-29 03:50] LABS: APPEARANCE, URINE CLEAR (CLEAR); BACTERIA, URINE AUTO NEGATIVE (NEGATIVE); BILIRUBIN, URINE AUTO NEGATIVE (NEGATIVE); BLOOD, URINE BLOOD NEGATIVE (NEGATIVE); CALCIUM OXALATE CRYSTALS SMALL; COLOR, URINE YELLOW (YELLOW); GLUCOSE, URINE (UA) AUTO NEGATIVE (NEGATIVE); KETONE, URINE AUTO NEGATIVE (NEGATIVE); LEUKOCYTE ESTERASE, URINE AUTO NEGATIVE (NEGATIVE); MUCUS, URINE SMALL (NEGATIVE); NITRITE, URINE AUTO NEGATIVE (NEGATIVE); PROTEIN, URINE AUTO NEGATIVE (NEGATIVE); RBC, URINE AUTO 0 /HPF (0-3); SPECIFIC GRAVITY URINE AUTO 1.016 (1.002-1.035); SQUAMOUS EPITHELIAL CELL UR AU 0 /HPF (0-6); UROBILINOGEN, URINE AUTO 0.2 mg/dL (0.0-2.0); WBC, URINE AUTO 1 /HPF (0-3)
[2019-04-29 06:15] LABS: BASO # 0.1 10^3/uL (0.0-0.2); EOS # 0.2 10^3/uL (0.0-0.5); EOS % 3.1 % (0.0-3.0); HEMATOCRIT 34.1 % (42.0-52.0); HEMOGLOBIN 10.7 g/dl (13.5-17.5); LYMPH # 1.4 10^3/uL (1.5-5.0); LYMPH % 27.3 % (24.0-44.0); MEAN CORPUSCULAR HEMOGLOBIN 32.1 pg (27.0-33.0); MEAN CORPUSCULAR HGB CONC 31.4 g/dl (32.0-36.5); MEAN CORPUSCULAR VOLUME 102.4 fl (80.0-96.0); MONO # 0.4 10^3/uL (0.0-0.8); MONO % 7.8 % (0.0-5.0); NEUTROPHILS % 58.9 % (36.0-66.0); PLATELET COUNT, AUTOMATED 190 10^3/uL (150-450); RED BLOOD COUNT 3.33 10^6/uL (4.30-6.10); WHITE BLOOD COUNT 5.2 10^3/uL (4.0-10.0)
[2019-04-29 06:40] LABS: BLOOD UREA NITROGEN 8 MG/DL (7-18); CALCIUM LEVEL 8.7 MG/DL (8.5-10.1); CARBON DIOXIDE LEVEL 27 MEQ/L (21-32); CHLORIDE LEVEL 107 MEQ/L (98-107); CREATININE FOR GFR 0.79 MG/DL (0.70-1.30); GLOMERULAR FILTRATION RATE > 60.0 (>56); GLUCOSE, FASTING 88 MG/DL (70-100); POTASSIUM SERUM 4.6 MEQ/L (3.5-5.1); SODIUM LEVEL 136 MEQ/L (136-145)
[2019-04-29 06:44] VITALS: BP 115/80
[2019-04-29 08:00] VITALS: BP 99/67
[2019-04-29] MEDS: OXAZEPAM 10 MG CAP PO SCH (08:44)
[2019-04-29] MEDS: POTASSIUM CHLORIDE 10 MEQ SR TABLET PO SCH ×2 (08:44→20:07)
[2019-04-29] MEDS: MAGNESIUM OXIDE 400 MG TAB (MAG-OX) PO SCH ×2 (08:44→20:07)
[2019-04-29] MEDS: FOLIC ACID 1 MG TAB PO SCH (08:44)
[2019-04-29] MEDS: K-PHOS ORIGINAL (POT.ACID PHOSPHATE) 500MG TAB PO SCH ×2 (08:44→20:07)
[2019-04-29] MEDS: MULTIVITAMINS/MINERALS THERAP 1 TAB PO SCH (08:44)
--- NOTE | 2019-04-29 09:57 | IPNPDOC ---
Subjective Date Seen The patient was seen on 04/29/19. Subjective Chief Complaint/HPI Stills feels dizzy when he stands up. Last night patient reported that he stood up to go to the bathroom felt a little dizzy but thought he would be able to go to the bathroom says he reaches the bathroom then collapsed to the floor. No injury. This morning he is using a bed side commode. Says he still had 2 accidents. Objective Physical Examination General Exam: Positive: Alert, Cooperative, No Acute Distress Eye Exam: Positive: PERRLA, Conjunctiva & lids normal, EOMI; Negative: Sclera icteric ENT Exam: Positive: Atraumatic, Mucous membr. moist/pink, Pharynx Normal Neck Exam: Positive: Supple; Negative: JVD, thyromegaly Chest Exam: Positive: Clear to auscultation, Normal air movement Heart Exam: Positive: Rate Normal, Regular Rhythm, Normal S1, Normal S2; Negative: Murmurs, Rubs Abdomen Exam: Positive: Normal bowel sounds, Soft; Negative: Tenderness, Hepatospenomegaly Extremity Exam: Positive: Normal pulses; Negative: Clubbing, Cyanosis, Edema Skin Exam: Positive: Nl turgor and temperature; Negative: Breakdown, Lesion Psych Exam: Positive: Memory Intact, Oriented x 3 Assessment /Plan Assessment This is a 58-year-old chronic alcoholic, alcoholic liver disease, h/o alcoholic delirium and alcohol induced acute encephalopathy, alcohol withdrawal seizures, 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 At the arraignment he was found to be intoxicated soiled in feces and urine so was brought to the ED . He complained of feeling very tired and weak for the past few days. He complained of feeling dizzy when he stood and feeling disorganized unable to get out of chair even to go to the bathroom. He denied any fever though complained of chills. denied any cough or phlegm. denied of any falls or trauma recently. In the ED he was found to be intoxicated and dehydrated with hypernatremia, hypokalemia and hypomagnesemia and an alcohol level of 0.320. So was admitted to the hospital. Dizziness and lightheadedness orthostats positive by HR criteria. Received IVF boluses. Alcohol intoxication No signs of withdrawal at present on CIPR protocol serax daily High anion gap metabolic acidosis with metabolic alkalosis due to alcohol and sever dehydration now acidosis has resolved Hypernatremia due to severe dehydration and free water deficit from alcohol resolved Hypokalemia replaced Hypomagnesemia replaced Severe dehydration improved. Pancytopenia due to bone marrow suppression by heavy alcohol use and underlying cirrhosis. Now prominent after hydration. On presentation he was very dehydrated so did not show pancytopenia. Plan/VTE VTE Prophylaxis Ordered?: Yes VS, I&O, 24H, Fishbone Vital Signs/I&O Vital Signs Date Time Temp Pulse Resp B/P (MAP) Pulse Ox O2 Delivery O2 Flow Rate FiO2 04/29/19 06:44 96.6 92 20 115/80 (92) 98 Room Air I&O- Last 24 Hours up to 6 AM 04/29/19 06:00 Intake Total 1630 ml Output Total 400 ml Balance 1230 ml Laboratory Data 24H LABS Laboratory Tests 2 04/29/19 03:37: Urine Color YELLOW, Urine Appearance CLEAR, Urine pH 5.0, Urine Specific Bertrand 1.016, Urine Protein NEGATIVE, Urine Glucose (Auto)(UA) NEGATIVE, Urine Ketones (Auto) NEGATIVE, Urine Blood NEGATIVE, Urine Nitrite NEGATIVE, Urine Bilirubin NEGATIVE, Urine Urobilinogen 0.2, Urine Leukocyte Esterase (Auto) NEGATIVE, Urine WBC (Auto) 1, Urine RBC (Auto) 0, Urine Hyaline Casts (Auto) 0, Urine Bacteria (Auto) NEGATIVE, Urine Squamous Epithelial Cells 0, Urine Calcium Oxalate Cryst (Auto) SMALL, Urine Mucus (Auto) SMALL, Urine Sperm (Auto) 04/29/19 05:47: Immature Granulocyte % (Auto) 1.9, Neutrophils (%) (Auto) 58.9, Lymphocytes (%) (Auto) 27.3, Monocytes (%) (Auto) 7.8H, Eosinophils (%) (Auto) 3.1H, Basophils (%) (Auto) 1.0, Neutrophils # (Auto) 3.0, Lymphocytes # (Auto) 1.4L, Monocytes # (Auto) 0.4, Eosinophils # (Auto) 0.2, Basophils # (Auto) 0.1, Nucleated Red Blood Cells % (auto) 0.0, Anion Gap 2L, Glomerular Filtration Rate > 60.0, Calcium Level 8.7 CBC/BMP Laboratory Tests 04/29/19 05:47 RUY ADRIAN MD Apr 29, 2019 09:56
--- NOTE | 2019-04-29 09:57 | IPNPDOC ---
Subjective Date Seen The patient was seen on 04/28/19. Subjective Chief Complaint/HPI Better today. sing bedside commode and urinal. Says the legs are getting stronger and not feeling dizzy today. Objective Physical Examination General Exam: Positive: Alert, Cooperative, No Acute Distress Eye Exam: Positive: PERRLA, Conjunctiva & lids normal, EOMI; Negative: Sclera icteric ENT Exam: Positive: Atraumatic, Mucous membr. moist/pink, Pharynx Normal Neck Exam: Positive: Supple; Negative: JVD, thyromegaly Chest Exam: Positive: Clear to auscultation, Normal air movement Heart Exam: Positive: Rate Normal, Regular Rhythm, Normal S1, Normal S2; Negative: Murmurs, Rubs Abdomen Exam: Positive: Normal bowel sounds, Soft; Negative: Tenderness, Hepatospenomegaly Skin Exam: Positive: Nl turgor and temperature; Negative: Breakdown, Lesion Psych Exam: Positive: Memory Intact, Oriented x 3 Assessment /Plan Assessment This is a 58-year-old chronic alcoholic, alcoholic liver disease, h/o alcoholic delirium and alcohol induced acute encephalopathy, alcohol withdrawal seizures, 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 At the arraignment he was found to be intoxicated soiled in feces and urine so was brought to the ED . He complained of feeling very tired and weak for the past few days. He complained of feeling dizzy when he stood and feeling disorganized unable to get out of chair even to go to the bathroom. He denied any fever though complained of chills. denied any cough or phlegm. denied of any falls or trauma recently. In the ED he was found to be intoxicated and dehydrated with hypernatremia, hypokalemia and hypomagnesemia and an alcohol level of 0.320. So was admitted to the hospital. Dizziness and lightheadedness orthostats were positive by Pulse criteria. Alcohol intoxication No signs of withdrawal at present on CIWA protocol serax tid High anion gap metabolic acidosis with metabolic alkalosis due to alcohol and sever dehydration now acidosis has resolved Hypernatremia due to severe dehydration and free water deficit from alcohol resolved Hypokalemia replaced Hypomagnesemia replaced Hypophosphatemia getting replacements will need to watch for refeeding syndrome Severe dehydration improved. Pancytopenia due to bone marrow suppression by heavy alcohol use and underlying cirrhosis. Now prominent after hydration. On presentation he was very dehydrated so did not show pancytopenia. Plan/VTE VTE Prophylaxis Ordered?: Yes VS, I&O, 24H, Fishbone Vital Signs/I&O Vital Signs Date Time Temp Pulse Resp B/P (MAP) Pulse Ox O2 Delivery O2 Flow Rate FiO2 04/28/19 06:46 98.9 104 18 136/85 (102) 98 Room Air I&O- Last 24 Hours up to 6 AM 04/28/19 06:00 Intake Total 3800 ml Output Total 3500 ml Balance 300 ml Laboratory Data 24H LABS Laboratory Tests 2 04/28/19 06:10: Immature Granulocyte % (Auto) 2.3, Neutrophils (%) (Auto) 58.9, Lymphocytes (%) (Auto) 26.2, Monocytes (%) (Auto) 8.6H, Eosinophils (%) (Auto) 2.9, Basophils (%) (Auto) 1.1H, Neutrophils # (Auto) 3.1, Lymphocytes # (Auto) 1.4L, Monocytes # (Auto) 0.5, Eosinophils # (Auto) 0.2, Basophils # (Auto) 0.1, Nucleated Red Blood Cells % (auto) 0.0, Anion Gap 5L, Glomerular Filtration Rate > 60.0, Calcium Level 8.4L, Phosphorus Level 2.4#L, Magnesium Level 1.9 CBC/BMP Laboratory Tests 04/28/19 06:10 RUY ADRIAN MD Apr 28, 2019 10:27
[2019-04-29 14:00] VITALS: BP 120/87
[2019-04-29 20:00] VITALS: BP_SYST 136; BP_SYST 138; BP_DIAS 68; BP_DIAS 80
[2019-04-29 20:07] VITALS: BP 138/80
[2019-04-30 06:00] VITALS: BP 11/82
[2019-04-30 07:37] LABS: BASO # 0.1 10^3/uL (0.0-0.2); BASO % 1.1 % (0.0-1.0); EOS # 0.1 10^3/uL (0.0-0.5); HEMOGLOBIN 10.5 g/dl (13.5-17.5); LYMPH # 1.6 10^3/uL (1.5-5.0); LYMPH % 33.7 % (24.0-44.0); MEAN CORPUSCULAR HEMOGLOBIN 31.9 pg (27.0-33.0); MEAN CORPUSCULAR HGB CONC 31.8 g/dl (32.0-36.5); MEAN CORPUSCULAR VOLUME 100.3 fl (80.0-96.0); MONO # 0.5 10^3/uL (0.0-0.8); MONO % 10.7 % (0.0-5.0); NEUTROPHILS # 2.3 10^3/uL (1.5-8.5); NEUTROPHILS % 49.6 % (36.0-66.0); PLATELET COUNT, AUTOMATED 128 10^3/uL (150-450); RED BLOOD COUNT 3.29 10^6/uL (4.30-6.10); WHITE BLOOD COUNT 4.7 10^3/uL (4.0-10.0)
[2019-04-30 07:47] LABS: BLOOD UREA NITROGEN 8 MG/DL (7-18); CALCIUM LEVEL 8.6 MG/DL (8.5-10.1); CARBON DIOXIDE LEVEL 24 MEQ/L (21-32); CHLORIDE LEVEL 106 MEQ/L (98-107); CREATININE FOR GFR 0.67 MG/DL (0.70-1.30); GLOMERULAR FILTRATION RATE > 60.0 (>56); GLUCOSE, FASTING 92 MG/DL (70-100); POTASSIUM SERUM 4.8 MEQ/L (3.5-5.1); SODIUM LEVEL 135 MEQ/L (136-145)
[2019-04-30] MEDS: OXAZEPAM 10 MG CAP PO SCH (08:42)
[2019-04-30] MEDS: K-PHOS ORIGINAL (POT.ACID PHOSPHATE) 500MG TAB PO SCH ×2 (08:42→20:37)
[2019-04-30] MEDS: MAGNESIUM OXIDE 400 MG TAB (MAG-OX) PO SCH ×2 (08:42→20:37)
[2019-04-30] MEDS: FOLIC ACID 1 MG TAB PO SCH (08:43)
[2019-04-30] MEDS: MULTIVITAMINS/MINERALS THERAP 1 TAB PO SCH (08:43)
[2019-04-30] MEDS: POTASSIUM CHLORIDE 10 MEQ SR TABLET PO SCH (08:43)
[2019-04-30 09:18] LABS: MAGNESIUM LEVEL 1.9 MG/DL (1.8-2.4); PHOSPHORUS LEVEL 4.6 MG/DL (2.5-4.9)
[2019-04-30] MEDS: THIAMINE 100 MG TAB PO SCH ×2 (09:51→20:37)
[2019-04-30 14:00] VITALS: BP 110/68
[2019-05-01 06:00] VITALS: BP 128/83
[2019-05-01] MEDS: FOLIC ACID 1 MG TAB PO SCH (08:05)
[2019-05-01] MEDS: MULTIVITAMINS/MINERALS THERAP 1 TAB PO SCH (08:06)
[2019-05-01] MEDS: OXAZEPAM 10 MG CAP PO SCH (08:06)
[2019-05-01] MEDS: MAGNESIUM OXIDE 400 MG TAB (MAG-OX) PO SCH ×2 (08:06→20:19)
[2019-05-01] MEDS: THIAMINE 100 MG TAB PO SCH ×2 (08:06→20:19)
[2019-05-01] MEDS: POTASSIUM CHLORIDE 10 MEQ SR TABLET PO SCH (08:06)
[2019-05-01] MEDS: K-PHOS ORIGINAL (POT.ACID PHOSPHATE) 500MG TAB PO SCH ×2 (08:06→20:19)
[2019-05-01 22:00] VITALS: BP 113/85
[2019-05-02 06:00] VITALS: BP 134/81
[2019-05-02 06:03] LABS: BLOOD UREA NITROGEN 12 MG/DL (7-18); CALCIUM LEVEL 8.9 MG/DL (8.5-10.1); CARBON DIOXIDE LEVEL 26 MEQ/L (21-32); CHLORIDE LEVEL 105 MEQ/L (98-107); CREATININE FOR GFR 0.88 MG/DL (0.70-1.30); GLOMERULAR FILTRATION RATE > 60.0 (>56); GLUCOSE, FASTING 87 MG/DL (70-100); MAGNESIUM LEVEL 2.1 MG/DL (1.8-2.4); PHOSPHORUS LEVEL 4.3 MG/DL (2.5-4.9); POTASSIUM SERUM 4.6 MEQ/L (3.5-5.1); SODIUM LEVEL 135 MEQ/L (136-145)
[2019-05-02] MEDS: THIAMINE 100 MG TAB PO SCH ×2 (08:24→21:50)
[2019-05-02] MEDS: K-PHOS ORIGINAL (POT.ACID PHOSPHATE) 500MG TAB PO SCH ×2 (08:24→21:49)
[2019-05-02] MEDS: POTASSIUM CHLORIDE 10 MEQ SR TABLET PO SCH (08:25)
[2019-05-02] MEDS: MAGNESIUM OXIDE 400 MG TAB (MAG-OX) PO SCH ×2 (08:25→21:50)
[2019-05-02] MEDS: FOLIC ACID 1 MG TAB PO SCH (08:25)
[2019-05-02] MEDS: MULTIVITAMINS/MINERALS THERAP 1 TAB PO SCH (08:25)
[2019-05-02 09:59] LABS: HEMATOCRIT 33.8 % (42.0-52.0); HEMOGLOBIN 10.7 g/dl (13.5-17.5); MEAN CORPUSCULAR HEMOGLOBIN 32.2 pg (27.0-33.0); MEAN CORPUSCULAR HGB CONC 31.7 g/dl (32.0-36.5); MEAN CORPUSCULAR VOLUME 101.8 fl (80.0-96.0); PLATELET COUNT, AUTOMATED 296 10^3/uL (150-450); RED BLOOD COUNT 3.32 10^6/uL (4.30-6.10); WHITE BLOOD COUNT 4.5 10^3/uL (4.0-10.0)
[2019-05-02] MEDS ORDERED: FOLI1TAB11 PO (10:01)
[2019-05-02] MEDS ORDERED: MAG400TA PO (10:01)
[2019-05-02] MEDS ORDERED: THIA100TA PO (10:01)
[2019-05-02 10:16] LABS: BLOOD UREA NITROGEN 11 MG/DL (7-18); CALCIUM LEVEL 8.9 MG/DL (8.5-10.1); CARBON DIOXIDE LEVEL 26 MEQ/L (21-32); CHLORIDE LEVEL 104 MEQ/L (98-107); CREATININE FOR GFR 0.93 MG/DL (0.70-1.30); GLOMERULAR FILTRATION RATE > 60.0 (>56); GLUCOSE, FASTING 94 MG/DL (70-100); POTASSIUM SERUM 4.1 MEQ/L (3.5-5.1); SODIUM LEVEL 135 MEQ/L (136-145)
[2019-05-02] MEDS ORDERED: diphenhydrAMINE 50 MG CAP PO ONE (22:30)
[2019-05-03 06:00] VITALS: BP 135/97
[2019-05-03] MEDS: MULTIVITAMINS/MINERALS THERAP 1 TAB PO SCH (09:06)
[2019-05-03] MEDS: MAGNESIUM OXIDE 400 MG TAB (MAG-OX) PO SCH (09:06)
[2019-05-03] MEDS: POTASSIUM CHLORIDE 10 MEQ SR TABLET PO SCH (09:06)
[2019-05-03] MEDS: K-PHOS ORIGINAL (POT.ACID PHOSPHATE) 500MG TAB PO SCH (09:06)
[2019-05-03] MEDS: THIAMINE 100 MG TAB PO SCH (09:07)
[2019-05-03] MEDS: FOLIC ACID 1 MG TAB PO SCH (09:07)
--- NOTE | 2019-05-03 11:46 | DS.PDOC ---
Discharge Summary General Date of Admission Apr 23, 2019 at 16:25 Date of Discharge 05/03/2019 Discharge Summary PROCEDURES PERFORMED DURING STAY: [None]. ADMITTING DIAGNOSES / DISCHARGE DIAGNOSES: s/p Dizziness and lightheadedness s/p Alcohol intoxication s/p High AG metabolic acidosis with metabolic alkalosis - likely 2/2 alcohol and severe dehydration s/p Hypernatremia s/p Hypokalemia s/p Hypomagnesemia s/p Pancytopenia DVT prophylaxis COMPLICATIONS/CHIEF COMPLAINT: Alcohol Dependence With Intoxication. HISTORY OF PRESENT ILLNESS: Patient is a 58 year old male with a PMHx of Chronic alcoholism, Alcoholic liver disease, Hx of Alcoholic delirium / encephalopathy, Hx of Withdrawal seizures, Hx of Intracranial hemorrhage 2/2 TBI while intoxicated, Hx of Pancreatitis 2/2 Alcohol use who presented to the ER, brought in by Police after he was found intoxicated and covered in urine / feces. In the ED he was found to be intoxicated, dehydrated with hypernatremia, hypokalemia and hypomagnesemia and an alcohol level of 0.320. Patient was admitted to the hospitalist department for further evaluation and treatment. HOSPITAL COURSE: s/p Dizziness and lightheadedness - Orthostatics negative - s/p IV fluid hydration - Has cleared PT / OT; repots that he has a rolling walker at home - will continue s/p Alcohol intoxication - Has no signs of withdrawal - s/p CIWA protocol - s/p Serax s/p High AG metabolic acidosis with metabolic alkalosis - likely 2/2 alcohol and severe dehydration s/p Hypernatremia s/p Hypokalemia s/p Hypomagnesemia s/p Pancytopenia - Macrocytic anemia - likely 2/2 EtoH - s/p Thrombocytopenia, s/p Leukopenia - No evidence of bleeding DVT prophylaxis - c/w TEDs/Sequentials DISCHARGE MEDICATIONS: Please see below. ALLERGIES: Please see below. PHYSICAL EXAMINATION ON DISCHARGE: Vitals (See below) General: Lying in bed, appears comfortable, AAOx3 HEENT: NC, AT CVS: +S1S2 Lungs: Fair air entry b/l, no auscultated rhonchi / rales / wheezing Abdomen: Soft, ND, NT Extremities: No evidence of edema, - Calf tenderness LABORATORY DATA: Please see below. ACTIVITY: [As tolerated]. DISCHARGE PLAN: Follow up with [facility] within 7 days Remain compliant with treatment plan and medications Return to the ER if you experience any problems DISPOSITION: Home DISCHARGE CONDITION: [Stable]. TIME SPENT ON DISCHARGE: 35 minutes Vital Signs/I&Os Vital Signs Date Time Temp Pulse Resp B/P (MAP) Pulse Ox O2 Delivery O2 Flow Rate FiO2 05/03/19 06:00 98.7 89 18 135/97 (110) 98 Room Air 04/29/19 20:00 2.0 I&O- Last 24 Hours up to 6 AM 05/03/19 06:00 Intake Total 1830 ml Balance 1830 ml Discharge Medications Scheduled Folic Acid (Folic Acid) 1 Mg Tablet, 1 MG PO DAILY Magnesium Oxide (Magnesium Oxide) 400 Mg Tablet, 800 MG PO DAILY Thiamine Hcl (Vitamin B-1) 100 Mg Tablet, 100 MG PO DAILY Allergies Coded Allergies: ceftriaxone (Verified Adverse Reaction, Intermediate, FEELS LIKE "PASSING OUT", 08/17/18) BARNEY CORRIGAN MD May 03, 2019 11:46
[2019-05-03] MEDS ORDERED: THIA100TA PO (18:28)
[2019-05-03] MEDS ORDERED: MAG400TA PO (18:28)
[2019-05-03] MEDS ORDERED: FOLI1TAB11 PO (18:28)
== END 2019-05-03 13:25 | disposition home or self-care (01) | DRG 641 ==
LOC: M ED 11:11 → M ED INP 16:25 → M MS5PR 17:29
PROVIDERS: ADMIT Internal Medicine Nephrology; ATTEND Internal Medicine
DX: E86.0 Dehydration (principal); D61.818 Other pancytopenia; R42 Dizziness and giddiness; E87.3 Alkalosis; E87.2 Acidosis; E87.0 Hyperosmolality and hypernatremia; F10.229 Alcohol dependence with intoxication, unspecified; E87.6 Hypokalemia; E83.42 Hypomagnesemia; Y90.1 Blood alcohol level of 20-39 mg/100 ml; Z79.899 Other long term (current) drug therapy; Z88.1 Allergy status to other antibiotic agents; E78.2 Mixed hyperlipidemia; R53.1 Weakness; R15.9 Full incontinence of feces; K70.30 Alcoholic cirrhosis of liver without ascites; E83.39 Other disorders of phosphorus metabolism

== ENCOUNTER 2019-08-24 15:50 | Inpatient (IN) | payer OTHER ==
[~2019-08-24] VITALS: Ht 190.5 cm; Wt 82.5 kg
[~2019-08-24 15:50] MED LIST changes: -AMLO10TA5 PO; +AMLO1TAB24 PO; +AMLO1TAB25 PO; -AMLO5TAB6 PO; -ERYT1OIN26 OD; +ERYT5OIN25 OD; +FOLIC ACID 1 MG TAB PO SCH; -LACT10SO29 PO; +LACT20EL PO; -LISI-1046 PO; -LISI-538 PO; +LISI10TA22 PO; -LISI10TA4 PO; +LISI2.5T2 PO; +LISI20TA33 PO; -MAG400TA PO; +MAGN400T2 PO; +MAGN400T35 PO; -MULTIVITAMINS/MINERALS THERAP 1 TAB PO SCH; +PANT40TA29 PO; -PANT40TA3 PO
--- NOTE | 2019-08-24 17:09 | REPVR ---
PROCEDURE INFORMATION: Exam: CT Head Without Contrast Exam date and time: 08/24/2019 4:34 PM Age: 58 years old Clinical indication: Altered mental status/memory loss TECHNIQUE: Imaging protocol: Computed tomography of the head without contrast. Radiation optimization: All CT scans at this facility use at least one of these dose optimization techniques: automated exposure control; mA and/or kV adjustment per patient size (includes targeted exams where dose is matched to clinical indication); or iterative reconstruction. COMPARISON: CT Head without contrast 03/07/2019 10:33 AM FINDINGS: Brain: There is moderate generalized cerebral cortical atrophy. Cystic encephalomalacia noted in the frontal lobes bilaterally and the right temporal lobe. Patchy low density present in the periventricular white matter extending into mullins radiata and centrum semiovale bilaterally. No hemorrhage. Mild cerebellar atrophy. Ventricles: There is ventriculomegaly which has increased since previous (posterior horn of left lateral ventricle measures 2.6 cm in diameter compared to previous measurement 1.9 centimetres). Bones/joints: Unremarkable. No acute fracture. Sinuses: Visualized sinuses are unremarkable. No fluid levels. Mastoid air cells: Visualized mastoid air cells are well aerated. Soft tissues: Unremarkable. IMPRESSION: 1. Moderately advanced generalized cerebral and cerebellar atrophy with areas of cystic encephalomalacia in both frontal lobes in the right temporal lobe. 2. Mild progressive ventriculomegaly suggests mild hydrocephalus 3. Chronic microvascular ischemic change within the deep white matter. Electronically signed by: Esperanza Rivera On 08/24/2019 17:09:01 PM
[2019-08-24 17:35] LABS: BASO % 0.6 % (0.0-1.0); HEMATOCRIT 29.8 % (42.0-52.0); HEMOGLOBIN 9.6 g/dl (13.5-17.5); LYMPH % 32.1 % (24.0-44.0); MEAN CORPUSCULAR HEMOGLOBIN 29.3 pg (27.0-33.0); MEAN CORPUSCULAR HGB CONC 32.2 g/dl (32.0-36.5); MEAN CORPUSCULAR VOLUME 90.9 fl (80.0-96.0); MONO # 0.3 10^3/uL (0.0-0.8); MONO % 9.3 % (0.0-5.0); NEUTROPHILS # 1.8 10^3/uL (1.5-8.5); NEUTROPHILS % 56.4 % (36.0-66.0); PLATELET COUNT, AUTOMATED 316 10^3/uL (150-450); RED BLOOD COUNT 3.28 10^6/uL (4.30-6.10); WHITE BLOOD COUNT 3.1 10^3/uL (4.0-10.0)
[2019-08-24] MEDS ORDERED: MULTIVITAMIN -ADULT INJECTION 10 ML, THIAMINE INJection 100 MG, FOLIC ACID 1 MG in NS 1... IV ONE (17:45)
--- NOTE | 2019-08-24 17:56 | ECGEPIP ---
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
[2019-08-24 18:14] LABS: ACETAMINOPHEN LEVEL < 2.0 UG/ML (10.0-30.0); ALBUMIN 2.6 GM/DL (3.2-5.2); ALT/SGPT 22 U/L (12-78); BILIRUBIN,DIRECT 0.9 MG/DL (0.0-0.2); BILIRUBIN,TOTAL 2.4 MG/DL (0.2-1.0); BLOOD UREA NITROGEN 11 MG/DL (7-18); CARBON DIOXIDE LEVEL 31 MEQ/L (21-32); CHLORIDE LEVEL 95 MEQ/L (98-107); CK-MB VALUE MASS < 1.0 NG/ML (<3.6); CPK CREATINE PHOSPHOKINASE 31 U/L (39-308); CREATININE FOR GFR 1.01 MG/DL (0.70-1.30); ETHYL ALCOHOL (ETHANOL) < 0.003 % (0.000-0.010); GLOMERULAR FILTRATION RATE > 60.0 (>56); GLUCOSE, FASTING 94 MG/DL (70-100); MB/CK RELATIVE INDEX 3.23 (< OR =4); POTASSIUM SERUM 2.9 MEQ/L (3.5-5.1); SALICYLATE LEVEL < 1.7 MG/DL (5.0-30.0); SODIUM LEVEL 136 MEQ/L (136-145); TOTAL PROTEIN 6.7 GM/DL (6.4-8.2); TROPONIN I < 0.02 NG/ML (< 0.10)
[2019-08-24 18:24] LABS: AMPHETAMINES LEVEL URINE NEGATIVE (NEGATIVE); BARBITURATES URINE NEGATIVE (NEGATIVE); BENZODIAZEPINES URINE NEGATIVE (NEGATIVE); CANNABINOIDS URINE NEGATIVE (NEGATIVE); COCAINE METABOLITE URINE NEGATIVE (NEGATIVE); METHADONE URINE NEGATIVE (NEGATIVE); OPIATES URINE NEGATIVE (NEGATIVE); PHENCYCLIDINE URINE NEGATIVE (NEGATIVE)
[2019-08-24] MEDS ORDERED: POTASSIUM CHLORIDE 10% LIQ 20 MEQ/15 ML UDC PO ONE (19:00)
[2019-08-24] MEDS ORDERED: KCL 10MEQ/100ML SWI (KRUN) 10 MEQ in IV 1 EA IV ONE (19:00)
[2019-08-24] MEDS ORDERED: LORazepam 2 MG TAB PO PRN (19:30)
[2019-08-24] MEDS ORDERED: ACETAMINOPHEN TAB 650MG DOSE (2X325MG) PO PRN (19:30)
--- NOTE | 2019-08-24 19:40 | HPEPDOC ---
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 Patient was brought in by ambulance, and was found to be disoriented and c onfused. Patient had a CT scan completed of his head that was negative for any acute changes. Lab work that revealed hypokalemia. Hospitalist service was called for evaluation and admission. Upon my evaluation, patient was oriented to person, place and time, however, was slow to respond to questioning. He denied any chest pain, shortness of breath or palpitations. Denied nausea, vomiting, abdominal pain, diarrhea or constipation. He did report discomfort with urination that he attributes the [place] that was recently placed in the emergency room. 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 Surgical History Carpal tunnel release surgery bilaterally Family History - Family history was reviewed and noncontributory to this hospitalization Social History - Denies the use of tobacco or illicit drugs; patient reports that he drink alcohol regularly but does not answer how frequently; he did note that his last drink was before lunch today - Denies recent travel or sick contacts - Lives alone - Occupation; unemployed Review of Systems Other systems 10 point review of systems complete, all negative otherwise stated in HPI Vital Signs - Vitals: BP [118/84], HR [107], RR [16], Sat [100%RA], Temp [98.0F] - General: Lying in bed, Does not appear to be in any distress, Speaking in full sentences, AAOx3 - HEENT: NC, AT, PERRLA, EOMI - CVS: RRR, +S1S2 - Lungs: Fair air entry bilaterally, No appreciable wheezing / rales / rhonchi - Abdomen: Soft, Non-distended, Non-tender - Extremities: No lower extremity edema, No calf tenderness - Neuro: 5/5 strength at upper / lower extremities bilaterally - Skin: No visible rashes Laboratory Data Labs 24H Laboratory Tests 2 08/24/19 17:15: Immature Granulocyte % (Auto) 0.6, Neutrophils (%) (Auto) 56.4, Lymphocytes (%) (Auto) 32.1, Monocytes (%) (Auto) 9.3H, Eosinophils (%) (Auto) 1.0, Basophils (%) (Auto) 0.6, Neutrophils # (Auto) 1.8, Lymphocytes # (Auto) 1.0L, Monocytes # (Auto) 0.3, Eosinophils # (Auto) 0.0, Basophils # (Auto) 0.0, Nucleated Red Blood Cells % (auto) 0.0, Anion Gap 10, Glomerular Filtration Rate > 60.0, Lactic Acid Level 2.0, Calcium Level 8.0L, Total Bilirubin 2.4H, Direct Bilirubin 0.9H, Aspartate Amino Transf (AST/SGOT) 46H, Alanine Aminotransferase (ALT/SGPT) 22, Alkaline Phosphatase 196H, Ammonia 19, Total Creatine Kinase 31L, Creatine Kinase MB < 1.0, Creatine Kinase MB Relative Index 3.23, Troponin I < 0.02, Total Protein 6.7, Albumin 2.6L, Albumin/Globulin Ratio 0.6, Thyroid Stimulating Hormone (TSH) 1.220, Salicylates Level < 1.7L, Acetaminophen Level < 2.0L, Ethyl Alcohol Level < 0.003 08/24/19 17:30: POC Glucose (Misc Panel) 102, POC Sodium (Misc Panel) 135L, POC Potassium (Misc Panel) 2.5*L, POC Chloride (Misc Panel) 91L, POC Total CO2 (Misc Panel) 28.0H, POC Blood Urea Nitrogen (Misc Panel 11, POC Ionized Calcium (Misc Panel) 3.7L, POC Creatinine (Misc Panel) 0.9, POC Hematocrit (Misc Panel) 44.0 08/24/19 17:32: POC Troponin I (Misc) 0.00 08/24/19 17:49: Urine Color LULY, Urine Appearance CLEAR, Urine pH 5.0, Urine Specific [place] 1.019, Urine Protein 1+H, Urine Glucose (UA) NEGATIVE, Urine Ketones NEGATIVE, Urine Blood NEGATIVE, Urine Nitrite NEGATIVE, Urine Bilirubin NEGATIVE, Urine Urobilinogen 4.0H, Urine Leukocyte Esterase NEGATIVE, Urine WBC (Auto) 3, Urine RBC (Auto) 1, Urine Hyaline Casts (Auto) 0, Urine Bacteria (Auto) NEGATIVE, Urine Squamous Epithelial Cells 0, Urine Mucus (Auto) SMALL, Urine Sperm (Auto) , Urine Opiates Screen NEGATIVE, Urine Methadone Screen NEGATIVE, Urine Barbiturates Screen NEGATIVE, Urine Phencyclidine Screen NEGATIVE, Urine Amphetamines Screen NEGATIVE, Urine Benzodiazepines Screen NEGATIVE, Urine Cocaine Metabolite Screen NEGATIVE, Urine Cannabinoids Screen NEGATIVE CBC/BMP Laboratory Tests 08/24/19 17:15 Microbiology Microbiology 08/24/19 Blood Culture, Received Pending 08/24/19 Blood Culture, Received Pending Plan / VTE VTE Prophylaxis Ordered?: Yes Plan Plan Failure to thrive - Patient is a chronic alcoholic; reported his last drink was earlier today - Hx of Alcohol withdrawal (Delirium / Seizures) - Currently does not appear to have any signs of alcohol withdrawal - Patient was oriented to person, place and time - Physical does not reveal any focal neurologic deficits - CT head 08/23: 1. Moderately advanced generalized cerebral and cerebellar atrophy with areas of cystic encephalomalacia in both frontal lobes in the right temporal lobe. 2. Mild progressive ventriculomegaly suggests mild hydrocephalus 3. Chronic microvascular ischemic change within the deep white matter. 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
--- NOTE | 2019-08-24 21:15 | REPVR ---
PROCEDURE INFORMATION: Exam: MR Head Without Contrast Exam date and time: 08/24/2019 8:59 PM Age: 58 years old Clinical indication: Altered mental status/memory loss; Confusion or disorientation; Patient HX: Patient has had a brain injury 1 year ago when he had a seizure from alcohol withdraw and fell hit his head per his daughter lacy, patient is confused; Additional info: Alcohlism / confusion TECHNIQUE: Imaging protocol: MR of the head without contrast. COMPARISON: MRI-Brain without Contrast 03/15/2019 8:25 PM FINDINGS: Limitations: Motion artifact degrades the images. Brain: No acute infarct. Encephalomalacia bilateral frontal lobes. Encephalomalacia in the right temporal lobe. Moderate to severe microvascular ischemic changes. Ventricles: Normal. No ventriculomegaly. Bones/joints: Unremarkable. Sinuses: Normal as visualized. No acute sinusitis. Mastoid air cells: Normal as visualized. No mastoid effusion. Orbits: Unremarkable. Soft tissues: Unremarkable. IMPRESSION: No acute intracranial abnormality. Chronic microvascular ischemic changes. Electronically signed by: Rajan Bustamante On 08/24/2019 21:15:12 PM
[2019-08-24] MEDS: THIAMINE 100 MG TAB PO SCH (22:22)
[2019-08-24] MEDS: OXAZEPAM 10 MG CAP PO SCH (22:22)
[2019-08-24] MEDS: HEPARIN SOD (PORCINE) 5000UNITS/ML 1ML VIAL/SYRINGE SC SCH (22:46)
--- NOTE | 2019-08-25 02:55 | REP ---
CHEST, SINGLE VIEW: There is no evidence of acute infiltrate. No pleural effusion is seen. The heart is normal in size. The mediastinal silhouette is unremarkable. The visualized osseous structures are intact. IMPRESSION: No acute pulmonary disease. Electronically Signed by Albin Rosa MD 08/28/2019 11:32 P
[2019-08-25] MEDS ORDERED: SLF 3 ML SYR IV PRN (06:00)
[2019-08-25 06:32] VITALS: BP_SYST 109; BP_SYST 110; BP_DIAS 79; BP_DIAS 80
[2019-08-25] MEDS: HEPARIN SOD (PORCINE) 5000UNITS/ML 1ML VIAL/SYRINGE SC SCH ×3 (06:58→21:12)
[2019-08-25] MEDS: SLF 3 ML SYR IV SCH ×3 (06:58→21:13)
[2019-08-25] MEDS: OXAZEPAM 10 MG CAP PO SCH ×3 (06:58→21:12)
[2019-08-25 07:15] LABS: BASO % 0.7 % (0.0-1.0); EOS # 0.1 10^3/uL (0.0-0.5); EOS % 1.8 % (0.0-3.0); HEMATOCRIT 24.6 % (42.0-52.0); HEMOGLOBIN 7.8 g/dl (13.5-17.5); LYMPH # 1.4 10^3/uL (1.5-5.0); LYMPH % 49.6 % (24.0-44.0); MEAN CORPUSCULAR HEMOGLOBIN 29.9 pg (27.0-33.0); MEAN CORPUSCULAR HGB CONC 31.7 g/dl (32.0-36.5); MEAN CORPUSCULAR VOLUME 94.3 fl (80.0-96.0); MONO # 0.3 10^3/uL (0.0-0.8); MONO % 11.4 % (0.0-5.0); NEUTROPHILS % 35.8 % (36.0-66.0); PLATELET COUNT, AUTOMATED 239 10^3/uL (150-450); RED BLOOD COUNT 2.61 10^6/uL (4.30-6.10); WHITE BLOOD COUNT 2.8 10^3/uL (4.0-10.0)
[2019-08-25 07:44] LABS: ALBUMIN 2.1 GM/DL (3.2-5.2); ALT/SGPT 18 U/L (12-78); BILIRUBIN,TOTAL 2.1 MG/DL (0.2-1.0); BLOOD UREA NITROGEN 10 MG/DL (7-18); CALCIUM LEVEL 7.1 MG/DL (8.5-10.1); CARBON DIOXIDE LEVEL 28 MEQ/L (21-32); CHLORIDE LEVEL 103 MEQ/L (98-107); CREATININE FOR GFR 0.78 MG/DL (0.70-1.30); GLOMERULAR FILTRATION RATE > 60.0 (>56); GLUCOSE, FASTING 80 MG/DL (70-100); MAGNESIUM LEVEL 1.2 MG/DL (1.8-2.4); POTASSIUM SERUM 2.9 MEQ/L (3.5-5.1); SODIUM LEVEL 138 MEQ/L (136-145); TOTAL PROTEIN 5.1 GM/DL (6.4-8.2)
[2019-08-25 08:00] VITALS: BP 103/76
[2019-08-25] MEDS ORDERED: POTASSIUM CHLORIDE 10 MEQ SR TABLET PO ONE ×2 (08:15→10:15)
[2019-08-25] MEDS: MULTIVITAMINS/MINERALS THERAP 1 TAB PO SCH (08:54)
[2019-08-25] MEDS: MAG SULF 1GM/100ML (MAG RUN) 1 GM in IV 1 EA IV SCH ×2 (08:54→10:29)
[2019-08-25] MEDS: FOLIC ACID 1 MG TAB PO SCH (08:55)
[2019-08-25] MEDS: THIAMINE 100 MG TAB PO SCH ×2 (08:55→21:12)
[2019-08-25 09:17] LABS: PHOSPHORUS LEVEL 3.1 MG/DL (2.5-4.9)
[2019-08-25 12:00] VITALS: BP 137/78
--- NOTE | 2019-08-25 13:26 | IPNPDOC ---
Text Note Date of Service The patient was seen on 08/25/19. NOTE Subjective: Does not offer any complaints today. When i asked why he was in the hospital he says his brother called the EMS. Denies any recent falls, denies any fever or chills, denies any abdominal pain , nausea or vomiting. Denies any SOB or cough or phlegm. Physical EXAM Vitals: As below General: Lying in bed, Does not appear to be in any distress, Speaking in full sentences, AAOx3 HEENT: NC, AT, PERRLA, EOMI CVS: RRR, +S1S2, no rub murmur or gallop Lungs: Fair air entry bilaterally, No appreciable wheezing / rales / rhonchi Abdomen: Soft, Non-distended, Non-tender, bowel sounds normal Extremities: No lower extremity edema, No calf tenderness Neuro: 5/5 strength at upper / lower extremities bilaterally Skin: No visible rashes IMAGING: CT head 08/23: 1. Moderately advanced generalized cerebral and cerebellar atrophy with areas of cystic encephalomalacia in both frontal lobes in the right temporal lobe. 2. Mild progressive ventriculomegaly suggests mild hydrocephalus 3. Chronic microvascular ischemic change within the deep white matter. Brain MRI: No acute intracranial abnormality, Chronic microvascular ischemic changes. Failure to thrive Patient is a chronic alcoholic; reported his last drink was the day before admission. Received Banana bag in ER Thiamine / Folate / MVI PT Hypokalemia EKG without any changes compared to prior, Telemetry reviewed no arrhythmias will give IV K run and oral potassium Hypomagnesemia will give IV magnesium. Acute on chronic Anemia It seems he has chronic anemia in the 9.5 to 10.5 range. Usually on admission he is dehydrated and after appropriate hydration his Hb drops in the hospital. will check iron studies. Folate and vit B12 Had EGD in 2019 was negative or varices. I suspect anemia is related to multifactorial causes including dilutional and marrow suppression from alcohol abuse rather than GI blood. will monitor If drops below 7 will transfuse. 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 DVT prophylaxis Heparin VS,Fishbone, I+O VS, Fishbone, I+O Laboratory Tests 08/24/19 17:15 08/25/19 06:55 Vital Signs Date Time Temp Pulse Resp B/P (MAP) Pulse Ox O2 Delivery O2 Flow Rate FiO2 08/25/19 12:00 96.9 95 17 137/78 (97) 98 Room Air RUY ADRIAN MD Aug 25, 2019 13:26
[2019-08-25 14:27] LABS: BLOOD UREA NITROGEN 10 MG/DL (7-18); CALCIUM LEVEL 7.7 MG/DL (8.5-10.1); CARBON DIOXIDE LEVEL 28 MEQ/L (21-32); CHLORIDE LEVEL 104 MEQ/L (98-107); CREATININE FOR GFR 0.78 MG/DL (0.70-1.30); GLOMERULAR FILTRATION RATE > 60.0 (>56); GLUCOSE, FASTING 84 MG/DL (70-100); POTASSIUM SERUM 3.9 MEQ/L (3.5-5.1); SODIUM LEVEL 139 MEQ/L (136-145)
[2019-08-25 14:30] LABS: FERRITIN 641 NG/ML (26-388); IRON (FE) 98 UG/DL (65-175); PERCENT SATURATION 64.5 % (19.7-50.0); TOTAL IRON BINDING CAPACITY 152 UG/DL (250-450)
[2019-08-25 14:49] LABS: FOLATE > 24.0 NG/ML (>5.4); VITAMIN B12 LEVEL 1000 PG/ML (247-911)
[2019-08-25 16:00] VITALS: BP 150/68
[2019-08-25 20:00] VITALS: BP 125/82
[2019-08-25 22:00] VITALS: BP 125/82
[2019-08-26 04:00] VITALS: BP 120/79
[2019-08-26] MEDS: SLF 3 ML SYR IV SCH ×3 (05:56→22:12)
[2019-08-26] MEDS: HEPARIN SOD (PORCINE) 5000UNITS/ML 1ML VIAL/SYRINGE SC SCH ×3 (05:57→22:00)
[2019-08-26] MEDS: OXAZEPAM 10 MG CAP PO SCH ×2 (05:57→14:00)
[2019-08-26 06:00] VITALS: BP 138/71
[2019-08-26 06:08] LABS: BASO % 0.8 % (0.0-1.0); EOS % 1.2 % (0.0-3.0); HEMATOCRIT 25.8 % (42.0-52.0); HEMOGLOBIN 8.2 g/dl (13.5-17.5); LYMPH # 1.1 10^3/uL (1.5-5.0); LYMPH % 43.6 % (24.0-44.0); MEAN CORPUSCULAR HEMOGLOBIN 30.4 pg (27.0-33.0); MEAN CORPUSCULAR HGB CONC 31.8 g/dl (32.0-36.5); MEAN CORPUSCULAR VOLUME 95.6 fl (80.0-96.0); MONO # 0.2 10^3/uL (0.0-0.8); MONO % 9.5 % (0.0-5.0); NEUTROPHILS # 1.1 10^3/uL (1.5-8.5); NEUTROPHILS % 44.1 % (36.0-66.0); PLATELET COUNT, AUTOMATED 253 10^3/uL (150-450); WHITE BLOOD COUNT 2.4 10^3/uL (4.0-10.0)
[2019-08-26 06:39] LABS: ALBUMIN 2.1 GM/DL (3.2-5.2); ALT/SGPT 18 U/L (12-78); BILIRUBIN,TOTAL 1.6 MG/DL (0.2-1.0); BLOOD UREA NITROGEN 10 MG/DL (7-18); CALCIUM LEVEL 7.9 MG/DL (8.5-10.1); CARBON DIOXIDE LEVEL 27 MEQ/L (21-32); CHLORIDE LEVEL 106 MEQ/L (98-107); CREATININE FOR GFR 0.79 MG/DL (0.70-1.30); GLOMERULAR FILTRATION RATE > 60.0 (>56); GLUCOSE, FASTING 78 MG/DL (70-100); MAGNESIUM LEVEL 1.8 MG/DL (1.8-2.4); POTASSIUM SERUM 3.8 MEQ/L (3.5-5.1); SODIUM LEVEL 140 MEQ/L (136-145); TOTAL PROTEIN 5.2 GM/DL (6.4-8.2)
[2019-08-26 08:00] VITALS: BP 110/75
[2019-08-26] MEDS: MULTIVITAMINS/MINERALS THERAP 1 TAB PO SCH (10:00)
[2019-08-26] MEDS: THIAMINE 100 MG TAB PO SCH ×2 (10:00→20:59)
[2019-08-26] MEDS: FOLIC ACID 1 MG TAB PO SCH (10:00)
[2019-08-26 16:00] VITALS: BP 109/80
--- NOTE | 2019-08-26 16:56 | IPNPDOC ---
Text Note Date of Service The patient was seen on 08/26/19. NOTE Subjective: Does not offer any complaints today. Sleeping most of the day. Not much oral intake. Though waking up for his meds. No fever or chills, no signs of withdrawal. Will reduce dose of serax. Physical EXAM Vitals: As below General: Lying in bed, Does not appear to be in any distress, somnolent. HEENT: NC, AT, PERRLA, EOMI CVS: RRR, +S1S2, no rub murmur or gallop Lungs: Fair air entry bilaterally, No appreciable wheezing / rales / rhonchi Abdomen: Soft, Non-distended, Non-tender, bowel sounds normal Extremities: No lower extremity edema, No calf tenderness Neuro: 5/5 strength at upper / lower extremities bilaterally Skin: No visible rashes IMAGING: CT head 08/23: 1. Moderately advanced generalized cerebral and cerebellar atrophy with areas of cystic encephalomalacia in both frontal lobes in the right temporal lobe. 2. Mild progressive ventriculomegaly suggests mild hydrocephalus 3. Chronic microvascular ischemic change within the deep white matter. Brain MRI: No acute intracranial abnormality, Chronic microvascular ischemic changes. Failure to thrive Patient is a chronic alcoholic; reported his last drink was the day before admission. Received Banana bag in ER Thiamine / Folate / MVI PT Hypokalemia EKG without any changes compared to prior, Telemetry reviewed no arrhythmias will give IV K run and oral potassium Hypomagnesemia will give IV magnesium. Acute on chronic Anemia It seems he has chronic anemia in the 9.5 to 10.5 range. Usually on admission he is dehydrated and after appropriate hydration his Hb drops in the hospital. will check iron studies. Folate and vit B12 Had EGD in 2019 was negative or varices. I suspect anemia is related to multifactorial causes including dilutional and marrow suppression from alcohol abuse rather than GI blood loss will monitor If drops below 7 will transfuse. 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 DVT prophylaxis Heparin VS,Fishbone, I+O VS, Fishbone, I+O Laboratory Tests 08/26/19 05:40 Vital Signs Date Time Temp Pulse Resp B/P (MAP) Pulse Ox O2 Delivery O2 Flow Rate FiO2 08/26/19 08:00 97.0 93 16 110/75 (87) 98 Room Air I&O- Last 24 Hours up to 6 AM 08/26/19 06:59 Intake Total 0 ml Output Total 250 ml Balance -250 ml RUY ADRIAN MD Aug 26, 2019 16:56
[2019-08-26] MEDS ORDERED: OXAZEPAM 10 MG CAP PO SCH (21:00)
[2019-08-26 22:50] VITALS: BP 128/89
[2019-08-26 22:56] VITALS: BP 128/89
[2019-08-27 06:00] VITALS: BP 129/70
[2019-08-27] MEDS: HEPARIN SOD (PORCINE) 5000UNITS/ML 1ML VIAL/SYRINGE SC SCH ×3 (06:06→21:40)
[2019-08-27] MEDS: SLF 3 ML SYR IV SCH ×3 (06:06→21:40)
[2019-08-27 06:07] VITALS: BP 126/89
[2019-08-27 07:01] LABS: BASO % 0.9 % (0.0-1.0); EOS % 1.3 % (0.0-3.0); HEMATOCRIT 25.4 % (42.0-52.0); HEMOGLOBIN 7.8 g/dl (13.5-17.5); LYMPH # 0.9 10^3/uL (1.5-5.0); LYMPH % 38.6 % (24.0-44.0); MEAN CORPUSCULAR HEMOGLOBIN 29.4 pg (27.0-33.0); MEAN CORPUSCULAR HGB CONC 30.7 g/dl (32.0-36.5); MEAN CORPUSCULAR VOLUME 95.8 fl (80.0-96.0); MONO # 0.2 10^3/uL (0.0-0.8); MONO % 10.3 % (0.0-5.0); NEUTROPHILS # 1.1 10^3/uL (1.5-8.5); PLATELET COUNT, AUTOMATED 255 10^3/uL (150-450); RED BLOOD COUNT 2.65 10^6/uL (4.30-6.10); WHITE BLOOD COUNT 2.3 10^3/uL (4.0-10.0)
[2019-08-27 07:19] LABS: ALT/SGPT 18 U/L (12-78); BILIRUBIN,TOTAL 1.2 MG/DL (0.2-1.0); BLOOD UREA NITROGEN 12 MG/DL (7-18); CARBON DIOXIDE LEVEL 30 MEQ/L (21-32); CHLORIDE LEVEL 107 MEQ/L (98-107); CREATININE FOR GFR 0.82 MG/DL (0.70-1.30); GLOMERULAR FILTRATION RATE > 60.0 (>56); GLUCOSE, FASTING 92 MG/DL (70-100); PHOSPHORUS LEVEL 3.5 MG/DL (2.5-4.9); POTASSIUM SERUM 3.4 MEQ/L (3.5-5.1); SODIUM LEVEL 140 MEQ/L (136-145); TOTAL PROTEIN 5.3 GM/DL (6.4-8.2)
[2019-08-27 07:20] LABS: MAGNESIUM LEVEL 1.6 MG/DL (1.8-2.4)
[2019-08-27] MEDS: FOLIC ACID 1 MG TAB PO SCH (10:39)
[2019-08-27] MEDS: THIAMINE 100 MG TAB PO SCH ×2 (10:39→21:39)
[2019-08-27] MEDS: MULTIVITAMINS/MINERALS THERAP 1 TAB PO SCH (10:39)
[2019-08-27] MEDS: OXAZEPAM 10 MG CAP PO SCH (10:39)
[2019-08-27 14:00] VITALS: BP 96/72
--- NOTE | 2019-08-27 16:46 | IPNPDOC ---
Text Note Date of Service The patient was seen on 08/27/19. NOTE Subjective: More awake this morning. But confused. Not much oral intake. No fever or chills, no signs of withdrawal. Did not work with PT . Has incontinent bowel movement s and incontinent voids. Physical EXAM Vitals: As below General: Lying in bed, Does not appear to be in any distress, somnolent. HEENT: NC, AT, PERRLA, EOMI CVS: RRR, +S1S2, no rub murmur or gallop Lungs: Fair air entry bilaterally, No appreciable wheezing / rales / rhonchi Abdomen: Soft, Non-distended, Non-tender, bowel sounds normal Extremities: No lower extremity edema, No calf tenderness Neuro: 5/5 strength at upper / lower extremities bilaterally Skin: No visible rashes IMAGING: CT head 08/23: 1. Moderately advanced generalized cerebral and cerebellar atrophy with areas of cystic encephalomalacia in both frontal lobes in the right temporal lobe. 2. Mild progressive ventriculomegaly suggests mild hydrocephalus 3. Chronic microvascular ischemic change within the deep white matter. Brain MRI: No acute intracranial abnormality, Chronic microvascular ischemic changes. 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 Patient was brought in by ambulance, and was found to be disoriented and confused. Patient had a CT scan completed of his head that was negative for any acute changes. Admitted for acute encephalopathy and failure to thrive. 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 Was probably having alcohol withdrawal related delirium MRI: Encephalomalacia bilateral frontal lobes. Encephalomalacia in the right temporal lobe. Moderate to severe microvascular ischemic changes. no other features of withdrawal. Failure to thrive Patient is a chronic alcoholic; reported his last drink was the day before admission. Received Banana bag in ER Thiamine / Folate / MVI PT Hypokalemia EKG without any changes compared to prior, Telemetry reviewed no arrhythmias replaced Hypomagnesemia replaced Acute on chronic Anemia It seems he has chronic anemia in the 9.5 to 10.5 range. Usually on admission he is dehydrated and after appropriate hydration his Hb drops in the hospital. will check iron studies. Folate and vit B12 Had EGD in 2019 was negative or varices. I suspect anemia is related to multifactorial causes including dilutional and marrow suppression from alcohol abuse rather than GI blood loss will monitor If drops below 7 will transfuse. 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 DVT prophylaxis Heparin VS,Fishbone, I+O VS, Fishbone, I+O Vital Signs Date Time Temp Pulse Resp B/P (MAP) Pulse Ox O2 Delivery O2 Flow Rate FiO2 08/27/19 06:07 99 126/89 08/27/19 06:00 97.9 19 96 Room Air I&O- Last 24 Hours up to 6 AM 08/27/19 07:00 Intake Total 600 ml Output Total 250 ml Balance 350 ml RUY ADRIAN MD Aug 27, 2019 07:02
[2019-08-27 22:00] VITALS: BP 108/62
[2019-08-28] MEDS: SLF 3 ML SYR IV SCH ×3 (05:30→21:30)
[2019-08-28] MEDS: HEPARIN SOD (PORCINE) 5000UNITS/ML 1ML VIAL/SYRINGE SC SCH ×3 (05:30→21:30)
[2019-08-28 06:00] VITALS: BP 110/88
[2019-08-28 07:16] LABS: BASO % 0.7 % (0.0-1.0); EOS % 1.5 % (0.0-3.0); HEMATOCRIT 22.4 % (42.0-52.0); LYMPH # 1.1 10^3/uL (1.5-5.0); LYMPH % 41.9 % (24.0-44.0); MEAN CORPUSCULAR HEMOGLOBIN 29.7 pg (27.0-33.0); MEAN CORPUSCULAR HGB CONC 30.8 g/dl (32.0-36.5); MEAN CORPUSCULAR VOLUME 96.6 fl (80.0-96.0); MONO # 0.3 10^3/uL (0.0-0.8); MONO % 9.3 % (0.0-5.0); NEUTROPHILS # 1.3 10^3/uL (1.5-8.5); NEUTROPHILS % 46.2 % (36.0-66.0); PLATELET COUNT, AUTOMATED 234 10^3/uL (150-450); RED BLOOD COUNT 2.32 10^6/uL (4.30-6.10); WHITE BLOOD COUNT 2.7 10^3/uL (4.0-10.0)
[2019-08-28 07:24] LABS: HEMOGLOBIN 6.9 g/dl (13.5-17.5)
[2019-08-28 07:30] LABS: ALBUMIN 1.9 GM/DL (3.2-5.2); ALT/SGPT 18 U/L (12-78); BILIRUBIN,TOTAL 0.9 MG/DL (0.2-1.0); BLOOD UREA NITROGEN 13 MG/DL (7-18); CALCIUM LEVEL 7.8 MG/DL (8.5-10.1); CARBON DIOXIDE LEVEL 25 MEQ/L (21-32); CHLORIDE LEVEL 108 MEQ/L (98-107); CREATININE FOR GFR 0.81 MG/DL (0.70-1.30); GLOMERULAR FILTRATION RATE > 60.0 (>56); GLUCOSE, FASTING 88 MG/DL (70-100); MAGNESIUM LEVEL 1.5 MG/DL (1.8-2.4); PHOSPHORUS LEVEL 3.8 MG/DL (2.5-4.9); POTASSIUM SERUM 3.6 MEQ/L (3.5-5.1); SODIUM LEVEL 142 MEQ/L (136-145); TOTAL PROTEIN 5.1 GM/DL (6.4-8.2)
[2019-08-28] MEDS: MULTIVITAMINS/MINERALS THERAP 1 TAB PO SCH (09:48)
[2019-08-28] MEDS: THIAMINE 100 MG TAB PO SCH ×2 (09:48→21:29)
[2019-08-28] MEDS: OXAZEPAM 10 MG CAP PO SCH (09:49)
[2019-08-28] MEDS: FOLIC ACID 1 MG TAB PO SCH (09:49)
[2019-08-28 12:10] LABS: HEMOGLOBIN 7.9 g/dl (13.5-17.5); MEAN CORPUSCULAR HEMOGLOBIN 30.4 pg (27.0-33.0); MEAN CORPUSCULAR HGB CONC 31.6 g/dl (32.0-36.5); MEAN CORPUSCULAR VOLUME 96.2 fl (80.0-96.0); PLATELET COUNT, AUTOMATED 228 10^3/uL (150-450); WHITE BLOOD COUNT 2.7 10^3/uL (4.0-10.0)
--- NOTE | 2019-08-28 12:14 | IPNPDOC ---
Text Note Date of Service The patient was seen on 08/28/19. NOTE Subjective: Awake and conversant though slow to answer and has to think before answering a question. Sitting up in bed and eating breakfast. He does not remember how he ended up in the hospital. No fever or chills, no signs of withdrawal. Has incontinent bowel movement s and incontinent voids. Hb down to 6.9 will recheck later and decide about PRBC transfusion. Physical EXAM Vitals: As below General: Lying in bed, Does not appear to be in any distress, somnolent. HEENT: NC, AT, PERRLA, EOMI CVS: RRR, +S1S2, no rub murmur or gallop Lungs: Fair air entry bilaterally, No appreciable wheezing / rales / rhonchi Abdomen: Soft, Non-distended, Non-tender, bowel sounds normal Extremities: No lower extremity edema, No calf tenderness Neuro: 5/5 strength at upper / lower extremities bilaterally Skin: No visible rashes IMAGING: CT head 08/23: 1. Moderately advanced generalized cerebral and cerebellar atrophy with areas of cystic encephalomalacia in both frontal lobes in the right temporal lobe. 2. Mild progressive ventriculomegaly suggests mild hydrocephalus 3. Chronic microvascular ischemic change within the deep white matter. Brain MRI: No acute intracranial abnormality, Chronic microvascular ischemic changes. 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 Patient was brought in by ambulance, and was found to be disoriented and confused. Patient had a CT scan completed of his head that was negative for any acute changes. Admitted for acute encephalopathy and failure to thrive. 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 Was probably having alcohol withdrawal related delirium which has now resolved. Now mostly seems like Dementia. MRI: Encephalomalacia bilateral frontal lobes. Encephalomalacia in the right temporal lobe. Moderate to severe microvascular ischemic changes. no other features of withdrawal. Failure to thrive Patient is a chronic alcoholic; reported his last drink was the day before admission. Received Banana bag in ER Thiamine / Folate / MVI PT Acute on chronic Anemia It seems he has chronic anemia in the 9.5 to 10.5 range. Usually on admission he is dehydrated and after appropriate hydration his Hb drops in the hospital. His ferritin is not low. No Folate and vit B12 def Had EGD in 2018 was negative or varices. I suspect anemia is related to multifactorial causes including dilutional and marrow suppression from alcohol abuse rather than GI blood loss will monitor will transfuse 2 units of PRBc if Recheck one is still below 7. 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 DVT prophylaxis Heparin VS,Fishbone, I+O VS, Fishbone, I+O Laboratory Tests 08/28/19 06:33 Vital Signs Date Time Temp Pulse Resp B/P (MAP) Pulse Ox O2 Delivery O2 Flow Rate FiO2 08/28/19 06:00 98.0 93 18 110/88 (95) 100 Room Air I&O- Last 24 Hours up to 6 AM 08/28/19 05:59 Intake Total 600 ml Balance 600 ml RUY ADRIAN MD Aug 28, 2019 08:15
[2019-08-28 14:00] VITALS: BP 103/76
[2019-08-28 22:00] VITALS: BP 134/91
[2019-08-29 06:00] VITALS: BP 127/88
[2019-08-29 06:13] LABS: BASO % 0.7 % (0.0-1.0); EOS # 0.1 10^3/uL (0.0-0.5); EOS % 1.9 % (0.0-3.0); HEMATOCRIT 25.5 % (42.0-52.0); HEMOGLOBIN 7.8 g/dl (13.5-17.5); LYMPH # 1.2 10^3/uL (1.5-5.0); LYMPH % 43.8 % (24.0-44.0); MEAN CORPUSCULAR HEMOGLOBIN 29.5 pg (27.0-33.0); MEAN CORPUSCULAR HGB CONC 30.6 g/dl (32.0-36.5); MEAN CORPUSCULAR VOLUME 96.6 fl (80.0-96.0); MONO # 0.2 10^3/uL (0.0-0.8); MONO % 8.6 % (0.0-5.0); NEUTROPHILS # 1.2 10^3/uL (1.5-8.5); NEUTROPHILS % 44.6 % (36.0-66.0); PLATELET COUNT, AUTOMATED 245 10^3/uL (150-450); RED BLOOD COUNT 2.64 10^6/uL (4.30-6.10); WHITE BLOOD COUNT 2.7 10^3/uL (4.0-10.0)
[2019-08-29] MEDS: HEPARIN SOD (PORCINE) 5000UNITS/ML 1ML VIAL/SYRINGE SC SCH ×3 (06:21→21:59)
[2019-08-29] MEDS: SLF 3 ML SYR IV SCH ×3 (06:22→21:59)
[2019-08-29 06:33] LABS: ALT/SGPT 19 U/L (12-78); BLOOD UREA NITROGEN 14 MG/DL (7-18); CARBON DIOXIDE LEVEL 27 MEQ/L (21-32); CHLORIDE LEVEL 108 MEQ/L (98-107); CREATININE FOR GFR 0.73 MG/DL (0.70-1.30); GLOMERULAR FILTRATION RATE > 60.0 (>56); GLUCOSE, FASTING 77 MG/DL (70-100); MAGNESIUM LEVEL 1.4 MG/DL (1.8-2.4); PHOSPHORUS LEVEL 3.5 MG/DL (2.5-4.9); POTASSIUM SERUM 3.9 MEQ/L (3.5-5.1); SODIUM LEVEL 143 MEQ/L (136-145); TOTAL PROTEIN 5.2 GM/DL (6.4-8.2)
[2019-08-29] MEDS ORDERED: MAG SULF 1GM/100ML (MAG RUN) 1 GM in IV 1 EA IV ONE (08:00)
[2019-08-29] MEDS: THIAMINE 100 MG TAB PO SCH ×2 (08:19→21:59)
[2019-08-29] MEDS: MAGNESIUM OXIDE 400MG TAB (MAG-OX) PO SCH ×2 (08:19→21:59)
[2019-08-29] MEDS: FOLIC ACID 1 MG TAB PO SCH (08:19)
[2019-08-29] MEDS: MULTIVITAMINS/MINERALS THERAP 1 TAB PO SCH (08:20)
--- NOTE | 2019-08-29 13:46 | IPNPDOC ---
Text Note Date of Service The patient was seen on 08/29/19. NOTE Subjective: Awake and conversant though slow to answer and has to think before answering a question. Behavioral abnormality with inappropriate behavior at times. Eating better. No fever or chills, no signs of withdrawal. Has incontinent bowel movements and incontinent voids. Physical EXAM Vitals: As below General: Lying in bed, Does not appear to be in any distress, conversant slow. HEENT: NC, AT, PERRLA, EOMI CVS: RRR, +S1S2, no rub murmur or gallop Lungs: Fair air entry bilaterally, No appreciable wheezing / rales / rhonchi Abdomen: Soft, Non-distended, Non-tender, bowel sounds normal Extremities: No lower extremity edema, No calf tenderness Neuro: 5/5 strength at upper / lower extremities bilaterally Skin: No visible rashes IMAGING: CT head 08/23: 1. Moderately advanced generalized cerebral and cerebellar atrophy with areas of cystic encephalomalacia in both frontal lobes in the right temporal lobe. 2. Mild progressive ventriculomegaly suggests mild hydrocephalus 3. Chronic microvascular ischemic change within the deep white matter. Brain MRI: No acute intracranial abnormality, Chronic microvascular ischemic changes. Assessment and Plan: Patient is a 58-year-old male with a PMHx of Alcoholic dependence, Alcoholic liver disease, Hx of Alcohol withdrawal (Delirium / Seizures), Hx of intracranial hemorrhage 2/2 TBI 2/2 Intoxication, w ho presented to the hospital after he was found by his friend covered in feces. Patient was brought in by ambulance, and was found to be disoriented and confused. Patient had a CT scan completed of his head that was negative for any acute changes. Admitted for acute encephalopathy and failure to thrive. 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 Was probably having alcohol withdrawal related delirium on admission which has now resolved. Now mostly seems like his baseline Dementia with abnormal behavior. MRI: Encephalomalacia bilateral frontal lobes. Encephalomalacia in the right temporal lobe. Moderate to severe microvascular ischemic changes. no other features of withdrawal. Failure to thrive Patient is a chronic alcoholic; reported his last drink was the day before admission. Received Banana bag in ER Thiamine / Folate / MVI PT Acute on chronic Anemia It seems he has chronic anemia in the 9.5 to 10.5 range. Usually on admission he is dehydrated and after appropriate hydration his Hb drops in the hospital. His ferritin is not low. No Folate and vit B12 def Had EGD in 2019 was negative or varices. I suspect anemia is related to multifactorial causes including dilutional and marrow suppression from alcohol abuse rather than GI blood loss will monitor Hypokalemia EKG without any changes compared to prior, Telemetry reviewed no arrhythmias replaced Hypomagnesemia replaced IV and continue po supplements. 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 DVT prophylaxis Heparin Dispo : will change to ALC status. VS,Fishbone, I+O VS, Fishbone, I+O Laboratory Tests 08/29/19 05:52 Vital Signs Date Time Temp Pulse Resp B/P (MAP) Pulse Ox O2 Delivery O2 Flow Rate FiO2 08/29/19 06:00 98.5 81 17 127/88 (101) 100 Room Air I&O- Last 24 Hours up to 6 AM 08/29/19 06:00 Intake Total 480 ml Output Total 0 ml Balance 480 ml RUY ADRIAN MD Aug 29, 2019 13:46
[2019-08-29 14:00] VITALS: BP 136/86
[2019-08-30] MEDS: HEPARIN SOD (PORCINE) 5000UNITS/ML 1ML VIAL/SYRINGE SC SCH ×3 (05:29→21:51)
[2019-08-30] MEDS: SLF 3 ML SYR IV SCH ×4 (05:29→21:54)
[2019-08-30 05:57] LABS: BASO % 0.7 % (0.0-1.0); EOS % 1.1 % (0.0-3.0); HEMOGLOBIN 7.7 g/dl (13.5-17.5); LYMPH # 1.3 10^3/uL (1.5-5.0); LYMPH % 44.2 % (24.0-44.0); MEAN CORPUSCULAR HEMOGLOBIN 29.8 pg (27.0-33.0); MEAN CORPUSCULAR HGB CONC 30.8 g/dl (32.0-36.5); MEAN CORPUSCULAR VOLUME 96.9 fl (80.0-96.0); MONO # 0.2 10^3/uL (0.0-0.8); MONO % 8.1 % (0.0-5.0); NEUTROPHILS # 1.3 10^3/uL (1.5-8.5); NEUTROPHILS % 45.5 % (36.0-66.0); PLATELET COUNT, AUTOMATED 234 10^3/uL (150-450); RED BLOOD COUNT 2.58 10^6/uL (4.30-6.10); WHITE BLOOD COUNT 2.8 10^3/uL (4.0-10.0)
[2019-08-30 06:00] VITALS: BP 124/87
[2019-08-30 06:21] LABS: ALT/SGPT 20 U/L (12-78); BILIRUBIN,TOTAL 0.8 MG/DL (0.2-1.0); BLOOD UREA NITROGEN 16 MG/DL (7-18); CALCIUM LEVEL 8.2 MG/DL (8.5-10.1); CARBON DIOXIDE LEVEL 29 MEQ/L (21-32); CHLORIDE LEVEL 105 MEQ/L (98-107); CREATININE FOR GFR 0.86 MG/DL (0.70-1.30); GLOMERULAR FILTRATION RATE > 60.0 (>56); GLUCOSE, FASTING 97 MG/DL (70-100); MAGNESIUM LEVEL 1.7 MG/DL (1.8-2.4); POTASSIUM SERUM 3.4 MEQ/L (3.5-5.1); SODIUM LEVEL 141 MEQ/L (136-145)
[2019-08-30] MEDS: FOLIC ACID 1 MG TAB PO SCH (09:26)
[2019-08-30] MEDS: THIAMINE 100 MG TAB PO SCH ×2 (09:26→21:51)
[2019-08-30] MEDS: MULTIVITAMINS/MINERALS THERAP 1 TAB PO SCH (09:26)
[2019-08-30] MEDS: OXAZEPAM 10 MG CAP PO SCH (09:26)
[2019-08-30] MEDS: MAGNESIUM OXIDE 400MG TAB (MAG-OX) PO SCH ×2 (09:26→21:51)
[2019-08-31 06:00] VITALS: BP 123/88
[2019-08-31] MEDS: SLF 3 ML SYR IV SCH ×2 (06:00→14:00)
[2019-08-31] MEDS: HEPARIN SOD (PORCINE) 5000UNITS/ML 1ML VIAL/SYRINGE SC SCH ×3 (06:02→21:37)
[2019-08-31 06:24] LABS: BASO % 0.6 % (0.0-1.0); EOS % 1.2 % (0.0-3.0); HEMATOCRIT 26.1 % (42.0-52.0); HEMOGLOBIN 8.2 g/dl (13.5-17.5); LYMPH # 1.3 10^3/uL (1.5-5.0); MEAN CORPUSCULAR HEMOGLOBIN 30.1 pg (27.0-33.0); MEAN CORPUSCULAR HGB CONC 31.4 g/dl (32.0-36.5); MONO # 0.3 10^3/uL (0.0-0.8); NEUTROPHILS # 1.7 10^3/uL (1.5-8.5); NEUTROPHILS % 51.6 % (36.0-66.0); PLATELET COUNT, AUTOMATED 233 10^3/uL (150-450); RED BLOOD COUNT 2.72 10^6/uL (4.30-6.10); WHITE BLOOD COUNT 3.4 10^3/uL (4.0-10.0)
[2019-08-31 06:50] LABS: ALT/SGPT 20 U/L (12-78); BILIRUBIN,TOTAL 0.9 MG/DL (0.2-1.0); BLOOD UREA NITROGEN 18 MG/DL (7-18); CALCIUM LEVEL 8.1 MG/DL (8.5-10.1); CARBON DIOXIDE LEVEL 29 MEQ/L (21-32); CHLORIDE LEVEL 105 MEQ/L (98-107); CREATININE FOR GFR 0.74 MG/DL (0.70-1.30); GLOMERULAR FILTRATION RATE > 60.0 (>56); GLUCOSE, FASTING 76 MG/DL (70-100); MAGNESIUM LEVEL 1.7 MG/DL (1.8-2.4); SODIUM LEVEL 139 MEQ/L (136-145); TOTAL PROTEIN 5.3 GM/DL (6.4-8.2)
[2019-08-31] MEDS: MULTIVITAMINS/MINERALS THERAP 1 TAB PO SCH (09:00)
[2019-08-31] MEDS: OXAZEPAM 10 MG CAP PO SCH (09:00)
[2019-08-31] MEDS: FOLIC ACID 1 MG TAB PO SCH (09:00)
[2019-08-31] MEDS: MAGNESIUM OXIDE 400MG TAB (MAG-OX) PO SCH ×2 (09:00→21:37)
[2019-08-31] MEDS: THIAMINE 100 MG TAB PO SCH ×2 (09:00→21:37)
[2019-09-01] MEDS: HEPARIN SOD (PORCINE) 5000UNITS/ML 1ML VIAL/SYRINGE SC SCH (05:10)
[2019-09-01 06:00] VITALS: BP 113/86
[2019-09-01] MEDS: OXAZEPAM 10 MG CAP PO SCH (08:11)
[2019-09-01] MEDS: FOLIC ACID 1 MG TAB PO SCH (08:11)
[2019-09-01] MEDS: THIAMINE 100 MG TAB PO SCH (08:11)
[2019-09-01] MEDS: MULTIVITAMINS/MINERALS THERAP 1 TAB PO SCH (08:12)
[2019-09-01] MEDS: MAGNESIUM OXIDE 400MG TAB (MAG-OX) PO SCH (08:12)
[2019-09-03] MEDS ORDERED: HEPARIN SOD (PORCINE) 5000UNITS/ML 1ML VIAL/SYRINGE ONE ×3 (06:41→22:30)
[2019-09-03] MEDS ORDERED: MULTIVITAMINS/MINERALS THERAP 1 TAB ONE (09:31)
[2019-09-03] MEDS ORDERED: THIAMINE 100 MG TAB ONE ×2 (09:31→22:30)
[2019-09-03] MEDS ORDERED: OXAZEPAM 10 MG CAP ONE (09:31)
[2019-09-03] MEDS ORDERED: FOLIC ACID 1 MG TAB ONE (09:31)
[2019-09-03] MEDS ORDERED: MAGNESIUM OXIDE 400MG TAB (MAG-OX) ONE ×2 (09:31→22:30)
[2019-09-04] MEDS ORDERED: HEPARIN SOD (PORCINE) 5000UNITS/ML 1ML VIAL/SYRINGE ONE ×3 (02:48→09:34)
[2019-09-04] MEDS ORDERED: MULTIVITAMINS/MINERALS THERAP 1 TAB ONE ×2 (02:48→05:51)
[2019-09-04] MEDS ORDERED: MAGNESIUM OXIDE 400MG TAB (MAG-OX) ONE ×2 (02:48→05:51)
[2019-09-04] MEDS ORDERED: OXAZEPAM 10 MG CAP ONE (05:51)
[2019-09-04] MEDS ORDERED: THIAMINE 100 MG TAB ONE (05:51)
[2019-09-04] MEDS ORDERED: FOLIC ACID 1 MG TAB ONE (05:51)
[2019-09-05] MEDS ORDERED: MULTIVITAMINS/MINERALS THERAP 1 TAB ONE ×2 (05:53→08:45)
[2019-09-05] MEDS ORDERED: THIAMINE 100 MG TAB ONE ×3 (05:53→10:34)
[2019-09-05] MEDS ORDERED: HEPARIN SOD (PORCINE) 5000UNITS/ML 1ML VIAL/SYRINGE ONE ×3 (05:53→10:34)
[2019-09-05] MEDS ORDERED: FOLIC ACID 1 MG TAB ONE ×2 (05:53→10:34)
[2019-09-05] MEDS ORDERED: MAGNESIUM OXIDE 400MG TAB (MAG-OX) ONE ×3 (05:53→10:34)
[2019-09-05] MEDS ORDERED: OXAZEPAM 10 MG CAP ONE ×2 (05:53→08:45)
[2019-09-06] MEDS ORDERED: HEPARIN SOD (PORCINE) 5000UNITS/ML 1ML VIAL/SYRINGE ONE ×2 (03:02→09:37)
[2019-09-06] MEDS ORDERED: MAGNESIUM OXIDE 400MG TAB (MAG-OX) ONE (09:37)
[2019-09-06] MEDS ORDERED: THIAMINE 100 MG TAB ONE (09:37)
[2019-09-07] MEDS ORDERED: HEPARIN SOD (PORCINE) 5000UNITS/ML 1ML VIAL/SYRINGE ONE ×2 (05:35→20:36)
[2019-09-07] MEDS ORDERED: FOLIC ACID 1 MG TAB ONE (10:03)
[2019-09-07] MEDS ORDERED: OXAZEPAM 10 MG CAP ONE (10:03)
[2019-09-07] MEDS ORDERED: MULTIVITAMINS/MINERALS THERAP 1 TAB ONE (10:03)
[2019-09-07] MEDS ORDERED: MAGNESIUM OXIDE 400MG TAB (MAG-OX) ONE ×2 (10:03→20:36)
[2019-09-07] MEDS ORDERED: THIAMINE 100 MG TAB ONE ×2 (10:03→20:36)
[2019-09-08] MEDS ORDERED: HEPARIN SOD (PORCINE) 5000UNITS/ML 1ML VIAL/SYRINGE ONE ×3 (06:08→21:43)
[2019-09-08] MEDS ORDERED: MULTIVITAMINS/MINERALS THERAP 1 TAB ONE (08:52)
[2019-09-08] MEDS ORDERED: MAGNESIUM OXIDE 400MG TAB (MAG-OX) ONE ×2 (08:52→21:43)
[2019-09-08] MEDS ORDERED: FOLIC ACID 1 MG TAB ONE (08:52)
[2019-09-08] MEDS ORDERED: OXAZEPAM 10 MG CAP ONE (08:52)
[2019-09-08] MEDS ORDERED: THIAMINE 100 MG TAB ONE ×2 (08:52→21:43)
[2019-09-09] MEDS ORDERED: THIAMINE 100 MG TAB ONE ×2 (08:11→20:25)
[2019-09-09] MEDS ORDERED: MAGNESIUM OXIDE 400MG TAB (MAG-OX) ONE ×2 (08:11→20:25)
[2019-09-09] MEDS ORDERED: FOLIC ACID 1 MG TAB ONE (08:11)
[2019-09-09] MEDS ORDERED: MULTIVITAMINS/MINERALS THERAP 1 TAB ONE (08:11)
[2019-09-09] MEDS ORDERED: OXAZEPAM 10 MG CAP ONE (08:11)
[2019-09-09] MEDS ORDERED: HEPARIN SOD (PORCINE) 5000UNITS/ML 1ML VIAL/SYRINGE ONE ×2 (14:14→20:25)
[2019-09-10] MEDS ORDERED: HEPARIN SOD (PORCINE) 5000UNITS/ML 1ML VIAL/SYRINGE ONE ×3 (05:17→20:24)
[2019-09-10] MEDS ORDERED: OXAZEPAM 10 MG CAP ONE (09:00)
[2019-09-10] MEDS ORDERED: MULTIVITAMINS/MINERALS THERAP 1 TAB ONE (09:00)
[2019-09-10] MEDS ORDERED: THIAMINE 100 MG TAB ONE ×2 (09:00→20:24)
[2019-09-10] MEDS ORDERED: FOLIC ACID 1 MG TAB ONE (09:00)
[2019-09-10] MEDS ORDERED: MAGNESIUM OXIDE 400MG TAB (MAG-OX) ONE ×2 (09:00→20:24)
[2019-09-11] MEDS ORDERED: HEPARIN SOD (PORCINE) 5000UNITS/ML 1ML VIAL/SYRINGE ONE ×3 (05:55→20:13)
[2019-09-11] MEDS ORDERED: MAGNESIUM OXIDE 400MG TAB (MAG-OX) ONE ×2 (09:04→20:13)
[2019-09-11] MEDS ORDERED: MULTIVITAMINS/MINERALS THERAP 1 TAB ONE (09:04)
[2019-09-11] MEDS ORDERED: OXAZEPAM 10 MG CAP ONE (09:04)
[2019-09-11] MEDS ORDERED: THIAMINE 100 MG TAB ONE ×2 (09:04→20:13)
[2019-09-11] MEDS ORDERED: FOLIC ACID 1 MG TAB ONE (09:04)
[2019-09-12] MEDS ORDERED: HEPARIN SOD (PORCINE) 5000UNITS/ML 1ML VIAL/SYRINGE ONE ×3 (06:07→21:06)
[2019-09-12] MEDS ORDERED: OXAZEPAM 10 MG CAP ONE (08:10)
[2019-09-12] MEDS ORDERED: FOLIC ACID 1 MG TAB ONE (08:10)
[2019-09-12] MEDS ORDERED: THIAMINE 100 MG TAB ONE ×2 (08:10→21:06)
[2019-09-12] MEDS ORDERED: MULTIVITAMINS/MINERALS THERAP 1 TAB ONE (08:10)
[2019-09-12] MEDS ORDERED: MAGNESIUM OXIDE 400MG TAB (MAG-OX) ONE ×2 (08:10→21:06)
[2019-09-13] MEDS ORDERED: HEPARIN SOD (PORCINE) 5000UNITS/ML 1ML VIAL/SYRINGE ONE ×3 (05:43→21:09)
[2019-09-13] MEDS ORDERED: MAGNESIUM OXIDE 400MG TAB (MAG-OX) ONE ×2 (09:00→21:09)
[2019-09-13] MEDS ORDERED: MULTIVITAMINS/MINERALS THERAP 1 TAB ONE (09:00)
[2019-09-13] MEDS ORDERED: OXAZEPAM 10 MG CAP ONE (09:00)
[2019-09-13] MEDS ORDERED: FOLIC ACID 1 MG TAB ONE (09:00)
[2019-09-13] MEDS ORDERED: THIAMINE 100 MG TAB ONE ×2 (09:00→21:09)
[2019-09-14] MEDS ORDERED: FOLIC ACID 1 MG TAB ONE (09:51)
[2019-09-14] MEDS ORDERED: MAGNESIUM OXIDE 400MG TAB (MAG-OX) ONE ×2 (09:51→20:06)
[2019-09-14] MEDS ORDERED: MULTIVITAMINS/MINERALS THERAP 1 TAB ONE (09:51)
[2019-09-14] MEDS ORDERED: THIAMINE 100 MG TAB ONE ×2 (09:51→20:06)
[2019-09-14] MEDS ORDERED: OXAZEPAM 10 MG CAP ONE (09:51)
[2019-09-14] MEDS ORDERED: HEPARIN SOD (PORCINE) 5000UNITS/ML 1ML VIAL/SYRINGE ONE ×2 (13:02→20:06)
[2019-09-15] MEDS ORDERED: HEPARIN SOD (PORCINE) 5000UNITS/ML 1ML VIAL/SYRINGE ONE ×3 (06:10→21:16)
[2019-09-15] MEDS ORDERED: OXAZEPAM 10 MG CAP ONE (10:00)
[2019-09-15] MEDS ORDERED: FOLIC ACID 1 MG TAB ONE (10:00)
[2019-09-15] MEDS ORDERED: THIAMINE 100 MG TAB ONE ×2 (10:00→21:16)
[2019-09-15] MEDS ORDERED: MULTIVITAMINS/MINERALS THERAP 1 TAB ONE (10:00)
[2019-09-15] MEDS ORDERED: MAGNESIUM OXIDE 400MG TAB (MAG-OX) ONE ×2 (10:00→21:16)
[2019-09-16] MEDS ORDERED: HEPARIN SOD (PORCINE) 5000UNITS/ML 1ML VIAL/SYRINGE ONE ×3 (05:21→21:12)
[2019-09-16] MEDS ORDERED: FOLIC ACID 1 MG TAB ONE (09:45)
[2019-09-16] MEDS ORDERED: MULTIVITAMINS/MINERALS THERAP 1 TAB ONE (09:45)
[2019-09-16] MEDS ORDERED: THIAMINE 100 MG TAB ONE ×2 (09:45→21:12)
[2019-09-16] MEDS ORDERED: MAGNESIUM OXIDE 400MG TAB (MAG-OX) ONE ×2 (09:45→21:12)
[2019-09-16] MEDS ORDERED: OXAZEPAM 10 MG CAP ONE (09:45)
[2019-09-17] MEDS ORDERED: HEPARIN SOD (PORCINE) 5000UNITS/ML 1ML VIAL/SYRINGE ONE ×3 (06:02→20:55)
[2019-09-17] MEDS ORDERED: MULTIVITAMINS/MINERALS THERAP 1 TAB ONE (08:38)
[2019-09-17] MEDS ORDERED: FOLIC ACID 1 MG TAB ONE (08:38)
[2019-09-17] MEDS ORDERED: OXAZEPAM 10 MG CAP ONE (08:38)
[2019-09-17] MEDS ORDERED: THIAMINE 100 MG TAB ONE ×2 (08:38→20:55)
[2019-09-17] MEDS ORDERED: MAGNESIUM OXIDE 400MG TAB (MAG-OX) ONE ×2 (08:38→20:55)
[2019-09-18] MEDS ORDERED: HEPARIN SOD (PORCINE) 5000UNITS/ML 1ML VIAL/SYRINGE ONE ×3 (05:35→20:55)
[2019-09-18] MEDS ORDERED: MULTIVITAMINS/MINERALS THERAP 1 TAB ONE (08:29)
[2019-09-18] MEDS ORDERED: MAGNESIUM OXIDE 400MG TAB (MAG-OX) ONE ×2 (08:29→20:55)
[2019-09-18] MEDS ORDERED: OXAZEPAM 10 MG CAP ONE (08:29)
[2019-09-18] MEDS ORDERED: FOLIC ACID 1 MG TAB ONE (08:29)
[2019-09-18] MEDS ORDERED: THIAMINE 100 MG TAB ONE ×2 (08:29→20:55)
[2019-09-19] MEDS ORDERED: HEPARIN SOD (PORCINE) 5000UNITS/ML 1ML VIAL/SYRINGE ONE ×3 (05:37→21:50)
[2019-09-19] MEDS ORDERED: OXAZEPAM 10 MG CAP ONE (08:31)
[2019-09-19] MEDS ORDERED: MAGNESIUM OXIDE 400MG TAB (MAG-OX) ONE ×2 (08:31→21:50)
[2019-09-19] MEDS ORDERED: THIAMINE 100 MG TAB ONE ×2 (08:31→21:50)
[2019-09-19] MEDS ORDERED: FOLIC ACID 1 MG TAB ONE ×2 (08:31)
[2019-09-19] MEDS ORDERED: MULTIVITAMINS/MINERALS THERAP 1 TAB ONE (08:31)
[2019-09-20] MEDS ORDERED: FOLIC ACID 1 MG TAB ONE (08:29)
[2019-09-20] MEDS ORDERED: THIAMINE 100 MG TAB ONE ×2 (08:29→21:56)
[2019-09-20] MEDS ORDERED: MAGNESIUM OXIDE 400MG TAB (MAG-OX) ONE ×2 (08:29→21:56)
[2019-09-20] MEDS ORDERED: MULTIVITAMINS/MINERALS THERAP 1 TAB ONE (08:29)
[2019-09-20] MEDS ORDERED: OXAZEPAM 10 MG CAP ONE (08:29)
[2019-09-20] MEDS ORDERED: HEPARIN SOD (PORCINE) 5000UNITS/ML 1ML VIAL/SYRINGE ONE ×2 (14:27→21:56)
[2019-09-21] MEDS ORDERED: HEPARIN SOD (PORCINE) 5000UNITS/ML 1ML VIAL/SYRINGE ONE ×2 (06:15→20:17)
[2019-09-21] MEDS ORDERED: OXAZEPAM 10 MG CAP ONE (07:43)
[2019-09-21] MEDS ORDERED: THIAMINE 100 MG TAB ONE ×2 (07:43→20:17)
[2019-09-21] MEDS ORDERED: FOLIC ACID 1 MG TAB ONE (07:43)
[2019-09-21] MEDS ORDERED: MAGNESIUM OXIDE 400MG TAB (MAG-OX) ONE ×2 (07:43→20:17)
[2019-09-21] MEDS ORDERED: MULTIVITAMINS/MINERALS THERAP 1 TAB ONE (07:43)
[2019-09-22] MEDS ORDERED: HEPARIN SOD (PORCINE) 5000UNITS/ML 1ML VIAL/SYRINGE ONE (06:28)
[2019-09-22] MEDS ORDERED: FOLIC ACID 1 MG TAB ONE (09:01)
[2019-09-22] MEDS ORDERED: MULTIVITAMINS/MINERALS THERAP 1 TAB ONE (09:01)
[2019-09-22] MEDS ORDERED: THIAMINE 100 MG TAB ONE (09:01)
[2019-09-22] MEDS ORDERED: OXAZEPAM 10 MG CAP ONE (09:01)
[2019-09-22] MEDS ORDERED: MAGNESIUM OXIDE 400MG TAB (MAG-OX) ONE (09:01)
[2019-09-22] MEDS ORDERED: HEPARIN SOD (PORCINE) 5000UNITS/ML 1ML VIAL/SYRINGE As Ordered ONE ×2 (13:30→22:19)
[2019-09-22] MEDS ORDERED: MAGNESIUM OXIDE 400MG TAB (MAG-OX) As Ordered ONE (22:19)
[2019-09-22] MEDS ORDERED: THIAMINE 100 MG TAB As Ordered ONE (22:20)
[2019-09-23] MEDS ORDERED: HEPARIN SOD (PORCINE) 5000UNITS/ML 1ML VIAL/SYRINGE As Ordered ONE ×3 (06:15→21:26)
[2019-09-23] MEDS ORDERED: THIAMINE 100 MG TAB As Ordered ONE ×2 (08:46→21:27)
[2019-09-23] MEDS ORDERED: MULTIVITAMINS/MINERALS THERAP 1 TAB As Ordered ONE (08:46)
[2019-09-23] MEDS ORDERED: MAGNESIUM OXIDE 400MG TAB (MAG-OX) As Ordered ONE ×2 (08:46→21:26)
[2019-09-23] MEDS ORDERED: OXAZEPAM 10 MG CAP As Ordered ONE (08:46)
[2019-09-23] MEDS ORDERED: FOLIC ACID 1 MG TAB As Ordered ONE (08:47)
[2019-09-24] MEDS ORDERED: HEPARIN SOD (PORCINE) 5000UNITS/ML 1ML VIAL/SYRINGE As Ordered ONE ×2 (05:42→20:54)
[2019-09-24] MEDS ORDERED: MULTIVITAMINS/MINERALS THERAP 1 TAB As Ordered ONE (08:21)
[2019-09-24] MEDS ORDERED: MAGNESIUM OXIDE 400MG TAB (MAG-OX) As Ordered ONE ×2 (08:21→20:54)
[2019-09-24] MEDS ORDERED: FOLIC ACID 1 MG TAB As Ordered ONE (08:21)
[2019-09-24] MEDS ORDERED: THIAMINE 100 MG TAB As Ordered ONE ×2 (08:21→20:54)
[2019-09-24] MEDS ORDERED: OXAZEPAM 10 MG CAP As Ordered ONE (08:21)
[2019-09-25] MEDS ORDERED: HEPARIN SOD (PORCINE) 5000UNITS/ML 1ML VIAL/SYRINGE As Ordered ONE ×3 (05:50→21:11)
[2019-09-25] MEDS ORDERED: MULTIVITAMINS/MINERALS THERAP 1 TAB As Ordered ONE (08:01)
[2019-09-25] MEDS ORDERED: MAGNESIUM OXIDE 400MG TAB (MAG-OX) As Ordered ONE ×2 (08:01→21:11)
[2019-09-25] MEDS ORDERED: OXAZEPAM 10 MG CAP As Ordered ONE (08:01)
[2019-09-25] MEDS ORDERED: FOLIC ACID 1 MG TAB As Ordered ONE (08:02)
[2019-09-25] MEDS ORDERED: THIAMINE 100 MG TAB As Ordered ONE ×2 (08:02→21:11)
[2019-09-26] MEDS ORDERED: HEPARIN SOD (PORCINE) 5000UNITS/ML 1ML VIAL/SYRINGE As Ordered ONE ×3 (05:31→21:11)
[2019-09-26] MEDS ORDERED: MULTIVITAMINS/MINERALS THERAP 1 TAB As Ordered ONE (09:24)
[2019-09-26] MEDS ORDERED: MAGNESIUM OXIDE 400MG TAB (MAG-OX) As Ordered ONE ×2 (09:24→21:11)
[2019-09-26] MEDS ORDERED: THIAMINE 100 MG TAB As Ordered ONE ×2 (09:24→21:11)
[2019-09-26] MEDS ORDERED: FOLIC ACID 1 MG TAB As Ordered ONE (09:25)
[2019-09-27] MEDS ORDERED: HEPARIN SOD (PORCINE) 5000UNITS/ML 1ML VIAL/SYRINGE As Ordered ONE ×2 (05:47→14:18)
[2019-09-27] MEDS ORDERED: MULTIVITAMINS/MINERALS THERAP 1 TAB As Ordered ONE (09:24)
[2019-09-27] MEDS ORDERED: FOLIC ACID 1 MG TAB As Ordered ONE (09:25)
[2019-09-27] MEDS ORDERED: MAGNESIUM OXIDE 400MG TAB (MAG-OX) As Ordered ONE (09:25)
[2019-09-27] MEDS ORDERED: THIAMINE 100 MG TAB As Ordered ONE (09:25)
[2019-09-27] MEDS: HEPARIN SOD (PORCINE) 5000UNITS/ML 1ML VIAL/SYRINGE SQ SCH (21:41)
[2019-09-27] MEDS: THIAMINE 100 MG TAB PO SCH (21:41)
[2019-09-27] MEDS: MAGNESIUM OXIDE 400MG TAB (MAG-OX) PO SCH (21:41)
[2019-09-28] MEDS: HEPARIN SOD (PORCINE) 5000UNITS/ML 1ML VIAL/SYRINGE SQ SCH ×3 (05:45→20:05)
[2019-09-28 06:00] VITALS: BP 122/70
[2019-09-28] MEDS ORDERED: OXAZEPAM 10 MG CAP PO SCH (09:00)
[2019-09-28] MEDS: MULTIVITAMINS/MINERALS THERAP 1 TAB PO SCH (10:10)
[2019-09-28] MEDS: FOLIC ACID 1 MG TAB PO SCH (10:10)
[2019-09-28] MEDS: THIAMINE 100 MG TAB PO SCH ×2 (10:11→20:05)
[2019-09-28] MEDS: MAGNESIUM OXIDE 400MG TAB (MAG-OX) PO SCH ×2 (10:11→20:05)
--- NOTE | 2019-09-28 16:56 | IPNPDOC ---
Text Note Date of Service The patient was seen on 09/28/19. NOTE Subjective: Patient seen and examined at bedside. No acute overnight events reported. Patient has no new medical complaints this morning. He reports intermittent incontinent bowel movements. Objective: Vitals: As below General: sitting comfortably at edge of bed eating breakfast HEENT: NC, AT, PERRLA, EOMI CVS: RRR, +S1S2, no rub murmur or gallop Lungs: CTA B/L Abdomen: Soft, Non-distended, Non-tender, bowel sounds normal Extremities: no edema Skin: No visible rashes Assessment and Plan: Patient is a 58-year-old male with a PMHx of Alcoholic dependence, Alcoholic liver disease, Hx of Alcohol withdrawal (Delirium / Seizures), Hx of intracranial hemorrhage 2/2 TBI 2/2 Intoxication, who presented to the hospital after he was found by his friend covered in feces. Patient was brought in by ambulance, and was found to be disoriented and confused. Patient had a CT scan completed of his head that was negative for any acute changes. Admitted for acute encephalopathy and failure to thrive. 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 Was probably having alcohol withdrawal related delirium on admission which has now resolved. Now mostly seems like his baseline Dementia with abnormal behavior. MRI: Encephalomalacia bilateral frontal lobes. Encephalomalacia in the right temporal lobe. Moderate to severe microvascular ischemic changes. no other features of withdrawal. Failure to thrive Patient is a chronic alcoholic; reported his last drink was the day before admission. Received Banana bag in ER Thiamine / Folate / MVI PT Acute on chronic Anemia It seems he has chronic anemia in the 9.5 to 10.5 range. Usually on admission he is dehydrated and after appropriate hydration his Hb drops in the hospital. His ferritin is not low. No Folate and vit B12 def Had EGD in 2019 was negative for varices. likely multifactorial etiology Hypokalemia EKG without any changes compared to prior, Telemetry reviewed no arrhythmias replaced Hypomagnesemia replaced IV and continue po supplements. Alcoholic dependence Hx of Alcohol withdrawal (Delirium / Seizures) No evidence of alcohol withdrawal at this time completed serax taper Alcoholic liver disease AST the ALT ratio 2/3:1 Currently appears to be similar to prior TBI with intermittent dizziness Hx of intracranial hemorrhage 2/2 TBI 2/2 Intoxication No focal neurologic deficits CT head without any acute changes currently MRI no acute changes. DVT prophylaxis Heparin Dispo : currently ALC, pending placement VS,Fishbone, I+O VS, Fishbone, I+O Vital Signs Date Time Temp Pulse Resp B/P (MAP) Pulse Ox O2 Delivery O2 Flow Rate FiO2 09/28/19 06:00 98.4 86 18 122/70 (87) 95 I&O- Last 24 Hours up to 6 AM 09/28/19 06:00 Intake Total 300 ml Output Total 0 ml Balance 300 ml ESTEBAN ANNA MD Sep 28, 2019 16:56
[2019-09-29 06:00] VITALS: BP 129/89
[2019-09-29] MEDS: HEPARIN SOD (PORCINE) 5000UNITS/ML 1ML VIAL/SYRINGE SQ SCH ×3 (06:22→20:34)
[2019-09-29] MEDS: THIAMINE 100 MG TAB PO SCH ×2 (08:38→20:34)
[2019-09-29] MEDS: FOLIC ACID 1 MG TAB PO SCH (08:38)
[2019-09-29] MEDS: MAGNESIUM OXIDE 400MG TAB (MAG-OX) PO SCH ×2 (08:38→20:34)
[2019-09-29] MEDS: MULTIVITAMINS/MINERALS THERAP 1 TAB PO SCH (08:38)
[2019-09-30] MEDS: HEPARIN SOD (PORCINE) 5000UNITS/ML 1ML VIAL/SYRINGE SQ SCH ×3 (05:36→21:07)
[2019-09-30 06:00] VITALS: BP 116/77
[2019-09-30] MEDS: MAGNESIUM OXIDE 400MG TAB (MAG-OX) PO SCH ×2 (09:45→21:07)
[2019-09-30] MEDS: FOLIC ACID 1 MG TAB PO SCH (09:45)
[2019-09-30] MEDS: MULTIVITAMINS/MINERALS THERAP 1 TAB PO SCH (09:45)
[2019-09-30] MEDS: THIAMINE 100 MG TAB PO SCH ×2 (09:45→21:07)
[2019-10-01] MEDS: HEPARIN SOD (PORCINE) 5000UNITS/ML 1ML VIAL/SYRINGE SQ SCH ×3 (05:06→21:34)
[2019-10-01 06:00] VITALS: BP 118/80
[2019-10-01] MEDS: FOLIC ACID 1 MG TAB PO SCH (09:46)
[2019-10-01] MEDS: THIAMINE 100 MG TAB PO SCH ×2 (09:46→21:33)
[2019-10-01] MEDS: MAGNESIUM OXIDE 400MG TAB (MAG-OX) PO SCH ×2 (09:46→21:32)
[2019-10-01] MEDS: MULTIVITAMINS/MINERALS THERAP 1 TAB PO SCH (09:46)
[2019-10-02 06:00] VITALS: BP 116/78
[2019-10-02] MEDS: HEPARIN SOD (PORCINE) 5000UNITS/ML 1ML VIAL/SYRINGE SQ SCH ×3 (06:28→20:51)
[2019-10-02] MEDS: THIAMINE 100 MG TAB PO SCH ×2 (09:52→20:51)
[2019-10-02] MEDS: MULTIVITAMINS/MINERALS THERAP 1 TAB PO SCH (09:52)
[2019-10-02] MEDS: FOLIC ACID 1 MG TAB PO SCH (09:53)
[2019-10-02] MEDS: MAGNESIUM OXIDE 400MG TAB (MAG-OX) PO SCH ×2 (09:53→20:51)
[2019-10-03] MEDS: HEPARIN SOD (PORCINE) 5000UNITS/ML 1ML VIAL/SYRINGE SQ SCH ×3 (05:36→21:30)
[2019-10-03 06:00] VITALS: BP 117/81
[2019-10-03] MEDS: MULTIVITAMINS/MINERALS THERAP 1 TAB PO SCH (09:14)
[2019-10-03] MEDS: MAGNESIUM OXIDE 400MG TAB (MAG-OX) PO SCH ×2 (09:14→21:29)
[2019-10-03] MEDS: THIAMINE 100 MG TAB PO SCH ×2 (09:14→21:29)
[2019-10-03] MEDS: FOLIC ACID 1 MG TAB PO SCH (09:15)
[2019-10-04] MEDS: HEPARIN SOD (PORCINE) 5000UNITS/ML 1ML VIAL/SYRINGE SQ SCH ×3 (05:38→21:26)
[2019-10-04 06:00] VITALS: BP 120/82
[2019-10-04] MEDS: MAGNESIUM OXIDE 400MG TAB (MAG-OX) PO SCH ×2 (10:36→21:24)
[2019-10-04] MEDS: MULTIVITAMINS/MINERALS THERAP 1 TAB PO SCH (10:37)
[2019-10-04] MEDS: FOLIC ACID 1 MG TAB PO SCH (10:37)
[2019-10-04] MEDS: THIAMINE 100 MG TAB PO SCH ×2 (10:38→21:24)
[2019-10-04 11:02] LABS: HEMATOCRIT 35.9 % (42.0-52.0); HEMOGLOBIN 11.4 g/dl (13.5-17.5); MEAN CORPUSCULAR HEMOGLOBIN 31.5 pg (27.0-33.0); MEAN CORPUSCULAR HGB CONC 31.8 g/dl (32.0-36.5); MEAN CORPUSCULAR VOLUME 99.2 fl (80.0-96.0); PLATELET COUNT, AUTOMATED 232 10^3/uL (150-450); RED BLOOD COUNT 3.62 10^6/uL (4.30-6.10); WHITE BLOOD COUNT 4.3 10^3/uL (4.0-10.0)
--- NOTE | 2019-10-04 11:40 | IPNPDOC ---
Text Note Date of Service The patient was seen on 10/04/19. 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 Patient was brought in by ambulance, and was found to be disoriented and confused. Patient had a CT scan completed of his head that was negative for any acute changes. Admitted for acute encephalopathy and failure to thrive. Patient was seen and examined at the bedside. Currently patient denies any problems overnight. Denies any CP, SOB, palpitations, Cough, abdominal pain, constipation / diarrhea. 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 - Was probably having alcohol withdrawal related delirium on admission which has now resolved. - Now mostly seems like his baseline Dementia with abnormal behavior. - MRI 08/23: No acute intracranial abnormality. Chronic microvascular ischemic ch anges. - No other features of withdrawal. Failure to thrive - Patient is a chronic alcoholic; reported his last drink was the day before admission. - c/w PT and OT; looking into guardianship and placement Acute on chronic Anemia - Had EGD in 2018 was negative for varices. - Currently Hg has improved; will continue to follow trend - c/w Thiamine / Folate s/p Hypokalemia Hypomagnesemia - Will check lab work this morning Alcoholic dependence - Hx of Alcohol withdrawal (Delirium / Seizures) - No evidence of alcohol withdrawal at this time - s/p Serax taper - c/w MVI, Thiamine and Folate Alcoholic liver disease - Was improving TBI with intermittent dizziness - Hx of intracranial hemorrhage 2/2 TBI 2/2 Intoxication - Currently is without any focal neurologic deficits - CT head / MRI brain negative for acute changes DVT prophylaxis - c/w Heparin Disposition: - Currently ALC, pending placement VS,Fishbone, I+O VS, Fishbone, I+O Laboratory Tests 10/04/19 10:27 Vital Signs Date Time Temp Pulse Resp B/P (MAP) Pulse Ox O2 Delivery O2 Flow Rate FiO2 10/04/19 06:00 98.3 85 20 120/82 (95) 98 Room Air I&O- Last 24 Hours up to 6 AM 10/04/19 06:00 Intake Total 1310 ml Output Total 1050 ml Balance 260 ml BARNEY CORRIGAN MD Oct 04, 2019 11:40
[2019-10-04 11:47] LABS: BLOOD UREA NITROGEN 26 MG/DL (7-18); CALCIUM LEVEL 9.2 MG/DL (8.5-10.1); CARBON DIOXIDE LEVEL 27 MEQ/L (21-32); CHLORIDE LEVEL 106 MEQ/L (98-107); CREATININE FOR GFR 1.13 MG/DL (0.70-1.30); GLOMERULAR FILTRATION RATE > 60.0 (>56); GLUCOSE, FASTING 149 MG/DL (70-100); MAGNESIUM LEVEL 1.9 MG/DL (1.8-2.4); POTASSIUM SERUM 4.6 MEQ/L (3.5-5.1); SODIUM LEVEL 140 MEQ/L (136-145)
[2019-10-05] MEDS: HEPARIN SOD (PORCINE) 5000UNITS/ML 1ML VIAL/SYRINGE SQ SCH ×3 (05:44→21:28)
[2019-10-05 06:00] VITALS: BP 114/81
[2019-10-05] MEDS: THIAMINE 100 MG TAB PO SCH ×2 (08:43→20:03)
[2019-10-05] MEDS: FOLIC ACID 1 MG TAB PO SCH (08:43)
[2019-10-05] MEDS: MULTIVITAMINS/MINERALS THERAP 1 TAB PO SCH (08:44)
[2019-10-05] MEDS: MAGNESIUM OXIDE 400MG TAB (MAG-OX) PO SCH ×2 (08:44→20:04)
[2019-10-06 06:00] VITALS: BP 113/89
[2019-10-06] MEDS: HEPARIN SOD (PORCINE) 5000UNITS/ML 1ML VIAL/SYRINGE SQ SCH ×3 (06:26→21:13)
[2019-10-06] MEDS: FOLIC ACID 1 MG TAB PO SCH (09:04)
[2019-10-06] MEDS: MULTIVITAMINS/MINERALS THERAP 1 TAB PO SCH (09:05)
[2019-10-06] MEDS: THIAMINE 100 MG TAB PO SCH ×2 (09:05→21:12)
[2019-10-06] MEDS: MAGNESIUM OXIDE 400MG TAB (MAG-OX) PO SCH ×2 (09:07→21:12)
[2019-10-07] MEDS: HEPARIN SOD (PORCINE) 5000UNITS/ML 1ML VIAL/SYRINGE SQ SCH ×4 (05:24→21:25)
[2019-10-07 06:00] VITALS: BP 108/70
[2019-10-07] MEDS: FOLIC ACID 1 MG TAB PO SCH (10:48)
[2019-10-07] MEDS: THIAMINE 100 MG TAB PO SCH ×3 (10:48→21:20)
[2019-10-07] MEDS: MAGNESIUM OXIDE 400MG TAB (MAG-OX) PO SCH ×3 (10:48→21:20)
[2019-10-07] MEDS: MULTIVITAMINS/MINERALS THERAP 1 TAB PO SCH (10:48)
[2019-10-08 06:00] VITALS: BP 127/84
[2019-10-08] MEDS: HEPARIN SOD (PORCINE) 5000UNITS/ML 1ML VIAL/SYRINGE SQ SCH ×3 (06:00→20:30)
[2019-10-08] MEDS: MAGNESIUM OXIDE 400MG TAB (MAG-OX) PO SCH ×2 (08:19→20:29)
[2019-10-08] MEDS: FOLIC ACID 1 MG TAB PO SCH (08:19)
[2019-10-08] MEDS: THIAMINE 100 MG TAB PO SCH ×2 (08:20→20:29)
[2019-10-08] MEDS: MULTIVITAMINS/MINERALS THERAP 1 TAB PO SCH (08:20)
[2019-10-08] MEDS: NYSTATIN 100,000 UNITS/GM TOPICAL PWD 15 GM TOP PRN (17:11)
[2019-10-09] MEDS: NYSTATIN 100,000 UNITS/GM TOPICAL PWD 15 GM TOP PRN (02:10)
[2019-10-09] MEDS: HEPARIN SOD (PORCINE) 5000UNITS/ML 1ML VIAL/SYRINGE SQ SCH ×3 (05:46→21:23)
[2019-10-09 06:00] VITALS: BP 126/85
[2019-10-09] MEDS: FOLIC ACID 1 MG TAB PO SCH (11:16)
[2019-10-09] MEDS: THIAMINE 100 MG TAB PO SCH ×2 (11:16→21:00)
[2019-10-09] MEDS: MULTIVITAMINS/MINERALS THERAP 1 TAB PO SCH (11:16)
[2019-10-09] MEDS: MAGNESIUM OXIDE 400MG TAB (MAG-OX) PO SCH ×2 (11:16→21:00)
[2019-10-10] MEDS: HEPARIN SOD (PORCINE) 5000UNITS/ML 1ML VIAL/SYRINGE SQ SCH ×3 (05:04→21:12)
[2019-10-10 06:00] VITALS: BP 112/84
[2019-10-10] MEDS: FOLIC ACID 1 MG TAB PO SCH (08:04)
[2019-10-10] MEDS: MULTIVITAMINS/MINERALS THERAP 1 TAB PO SCH (08:04)
[2019-10-10] MEDS: MAGNESIUM OXIDE 400MG TAB (MAG-OX) PO SCH ×2 (08:04→21:11)
[2019-10-10] MEDS: THIAMINE 100 MG TAB PO SCH ×2 (08:05→21:11)
[2019-10-11 06:00] VITALS: BP 116/81
[2019-10-11] MEDS: HEPARIN SOD (PORCINE) 5000UNITS/ML 1ML VIAL/SYRINGE SQ SCH ×3 (06:08→21:38)
[2019-10-11] MEDS: THIAMINE 100 MG TAB PO SCH ×2 (08:49→21:38)
[2019-10-11] MEDS: FOLIC ACID 1 MG TAB PO SCH (08:50)
[2019-10-11] MEDS: MAGNESIUM OXIDE 400MG TAB (MAG-OX) PO SCH ×2 (08:50→21:38)
[2019-10-11] MEDS: MULTIVITAMINS/MINERALS THERAP 1 TAB PO SCH (08:50)
[2019-10-12] MEDS: HEPARIN SOD (PORCINE) 5000UNITS/ML 1ML VIAL/SYRINGE SQ SCH ×3 (04:52→22:17)
[2019-10-12 06:00] VITALS: BP 131/98
[2019-10-12 08:00] VITALS: BP 138/82
[2019-10-12] MEDS: FOLIC ACID 1 MG TAB PO SCH (09:16)
[2019-10-12] MEDS: MULTIVITAMINS/MINERALS THERAP 1 TAB PO SCH (09:16)
[2019-10-12] MEDS: MAGNESIUM OXIDE 400MG TAB (MAG-OX) PO SCH ×2 (09:17→22:16)
[2019-10-12] MEDS: THIAMINE 100 MG TAB PO SCH ×2 (09:17→22:17)
[2019-10-12 11:42] LABS: HEMATOCRIT 24.6 % (42.0-52.0); HEMOGLOBIN 7.9 g/dl (13.5-17.5); MEAN CORPUSCULAR HEMOGLOBIN 31.1 pg (27.0-33.0); MEAN CORPUSCULAR HGB CONC 32.1 g/dl (32.0-36.5); MEAN CORPUSCULAR VOLUME 96.9 fl (80.0-96.0); PLATELET COUNT, AUTOMATED 212 10^3/uL (150-450); RED BLOOD COUNT 2.54 10^6/uL (4.30-6.10); WHITE BLOOD COUNT 3.5 10^3/uL (4.0-10.0)
[2019-10-12 14:19] LABS: HEMATOCRIT 24.2 % (42.0-52.0); HEMOGLOBIN 7.7 g/dl (13.5-17.5); MEAN CORPUSCULAR HEMOGLOBIN 30.9 pg (27.0-33.0); MEAN CORPUSCULAR HGB CONC 31.8 g/dl (32.0-36.5); MEAN CORPUSCULAR VOLUME 97.2 fl (80.0-96.0); PLATELET COUNT, AUTOMATED 201 10^3/uL (150-450); RED BLOOD COUNT 2.49 10^6/uL (4.30-6.10); WHITE BLOOD COUNT 3.7 10^3/uL (4.0-10.0)
[2019-10-12] MEDS: ACETAMINOPHEN TAB 650MG DOSE (2X325MG) PO PRN (15:48)
[2019-10-13 06:00] VITALS: BP 113/79
[2019-10-13] MEDS: HEPARIN SOD (PORCINE) 5000UNITS/ML 1ML VIAL/SYRINGE SQ SCH ×5 (06:33→21:34)
[2019-10-13] MEDS: FOLIC ACID 1 MG TAB PO SCH ×2 (09:33→09:34)
[2019-10-13] MEDS: THIAMINE 100 MG TAB PO SCH ×4 (09:33→21:35)
[2019-10-13] MEDS: MAGNESIUM OXIDE 400MG TAB (MAG-OX) PO SCH ×2 (09:34→21:26)
[2019-10-13] MEDS: MULTIVITAMINS/MINERALS THERAP 1 TAB PO SCH (09:34)
[2019-10-13] MEDS: ACETAMINOPHEN TAB 650MG DOSE (2X325MG) PO PRN (21:35)
[2019-10-14 06:00] VITALS: BP 128/90
[2019-10-14] MEDS: HEPARIN SOD (PORCINE) 5000UNITS/ML 1ML VIAL/SYRINGE SQ SCH ×3 (06:50→21:22)
[2019-10-14] MEDS: MAGNESIUM OXIDE 400MG TAB (MAG-OX) PO SCH ×2 (09:37→21:21)
[2019-10-14] MEDS: FOLIC ACID 1 MG TAB PO SCH (09:37)
[2019-10-14] MEDS: THIAMINE 100 MG TAB PO SCH ×2 (09:38→21:21)
[2019-10-14] MEDS: MULTIVITAMINS/MINERALS THERAP 1 TAB PO SCH (09:38)
[2019-10-14] MEDS: ACETAMINOPHEN TAB 650MG DOSE (2X325MG) PO PRN (17:11)
[2019-10-15 04:00] VITALS: BP 122/74
[2019-10-15] MEDS: HEPARIN SOD (PORCINE) 5000UNITS/ML 1ML VIAL/SYRINGE SQ SCH ×3 (05:40→21:39)
[2019-10-15] MEDS: MAGNESIUM OXIDE 400MG TAB (MAG-OX) PO SCH ×2 (09:46→21:38)
[2019-10-15] MEDS: FOLIC ACID 1 MG TAB PO SCH (09:46)
[2019-10-15] MEDS: THIAMINE 100 MG TAB PO SCH ×2 (09:46→21:38)
[2019-10-15] MEDS: MULTIVITAMINS/MINERALS THERAP 1 TAB PO SCH (09:46)
[2019-10-16] MEDS: HEPARIN SOD (PORCINE) 5000UNITS/ML 1ML VIAL/SYRINGE SQ SCH ×3 (05:54→21:36)
[2019-10-16 06:00] VITALS: BP 130/85
[2019-10-16] MEDS: FOLIC ACID 1 MG TAB PO SCH (09:38)
[2019-10-16] MEDS: THIAMINE 100 MG TAB PO SCH ×2 (09:38→21:00)
[2019-10-16] MEDS: MAGNESIUM OXIDE 400MG TAB (MAG-OX) PO SCH ×2 (09:38→21:35)
[2019-10-16] MEDS: MULTIVITAMINS/MINERALS THERAP 1 TAB PO SCH (09:38)
[2019-10-16] MEDS: ACETAMINOPHEN TAB 650MG DOSE (2X325MG) PO PRN ×2 (09:38→16:46)
[2019-10-16] MEDS ORDERED: ANALGESIC BALM CRM 120 GM TOP PRN (16:00)
[2019-10-17 06:00] VITALS: BP 134/83
[2019-10-17] MEDS: HEPARIN SOD (PORCINE) 5000UNITS/ML 1ML VIAL/SYRINGE SQ SCH ×3 (06:11→21:01)
[2019-10-17] MEDS: THIAMINE 100 MG TAB PO SCH ×2 (08:55→20:54)
[2019-10-17] MEDS: MAGNESIUM OXIDE 400MG TAB (MAG-OX) PO SCH ×2 (08:55→20:54)
[2019-10-17] MEDS: MULTIVITAMINS/MINERALS THERAP 1 TAB PO SCH (08:55)
[2019-10-17] MEDS: FOLIC ACID 1 MG TAB PO SCH (08:55)
--- NOTE | 2019-10-17 12:56 | IPNPDOC ---
Text Note Date of Service The patient was seen on 10/17/19. 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 Patient was brought in by ambulance, and was found to be disoriented and confused. Patient had a CT scan completed of his head that was negative for any acute changes. Admitted for acute encephalopathy and failure to thrive. Patient was seen and examined at the bedside. He seems to argue on just about any point that is brought up in regard to why he is in the hospital, guardianship, placement, etc. I ordered labs on his this morning, but he refused when the clearing inspector arrived. 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 - Was probably having alcohol withdrawal related delirium on admission which has now resolved. - Now mostly seems like his baseline Dementia with abnormal behavior. - MRI 08/23: No acute intracranial abnormality. Chronic microvascular ischemic changes. - No other features of withdrawal. Failure to thrive - Patient is a chronic alcoholic; reported his last drink was the day before admission. - c/w PT and OT; looking into guardianship and placement Acute on chronic Anemia - Had EGD in 2018 was negative for varices. - Currently Hg has improved; will continue to follow trend - c/w Thiamine / Folate Hypokalemia -Resolved Hypomagnesemia - Resolved Alcoholic dependence - Hx of Alcohol withdrawal (Delirium / Seizures) - No evidence of alcohol withdrawal at this time - s/p Serax taper - c/w MVI, Thiamine and Folate Alcoholic liver disease - Was improving, now refuses lab TBI with intermittent dizziness - Hx of intracranial hemorrhage 2/2 TBI 2/2 Intoxication - Currently is without any focal neurologic deficits - CT head / MRI brain negative for acute changes DVT prophylaxis - c/w Heparin Disposition: - Currently ALC, pending placement - no change in status VS,Brightbone, I+O VS, Fishbone, I+O Vital Signs Date Time Temp Pulse Resp B/P (MAP) Pulse Ox O2 Delivery O2 Flow Rate FiO2 10/17/19 06:00 98.3 85 16 134/83 (100) 99 Room Air I&O- Last 24 Hours up to 6 AM 10/17/19 06:00 Intake Total 1800 ml Output Total 1550 ml Balance 250 ml NARDA PATHAK DO Oct 17, 2019 12:56
[2019-10-17] MEDS: ACETAMINOPHEN TAB 650MG DOSE (2X325MG) PO PRN (16:39)
[2019-10-17] MEDS: NYSTATIN 100,000 UNITS/GM TOPICAL PWD 15 GM TOP PRN (21:00)
[2019-10-17 23:23] LABS: HEMATOCRIT 25.8 % (42.0-52.0); HEMOGLOBIN 8.1 g/dl (13.5-17.5); MEAN CORPUSCULAR HGB CONC 31.4 g/dl (32.0-36.5); MEAN CORPUSCULAR VOLUME 98.9 fl (80.0-96.0); PLATELET COUNT, AUTOMATED 190 10^3/uL (150-450); RED BLOOD COUNT 2.61 10^6/uL (4.30-6.10); WHITE BLOOD COUNT 3.2 10^3/uL (4.0-10.0)
[2019-10-18 06:00] VITALS: BP 101/69
[2019-10-18] MEDS: HEPARIN SOD (PORCINE) 5000UNITS/ML 1ML VIAL/SYRINGE SQ SCH ×3 (06:31→20:49)
[2019-10-18] MEDS: MULTIVITAMINS/MINERALS THERAP 1 TAB PO SCH ×2 (09:00→10:52)
[2019-10-18] MEDS: MAGNESIUM OXIDE 400MG TAB (MAG-OX) PO SCH ×4 (09:00→20:50)
[2019-10-18] MEDS: FOLIC ACID 1 MG TAB PO SCH ×2 (09:00→10:53)
[2019-10-18] MEDS: THIAMINE 100 MG TAB PO SCH ×3 (09:00→20:45)
[2019-10-18] MEDS: FIORICET TAB PO ONE ×2 (09:15→10:55)
[2019-10-18] MEDS: CETIRIZINE (ZyrTEC) 10 MG TAB PO ONE ×2 (09:15→10:52)
--- NOTE | 2019-10-18 10:20 | REPVR ---
PROCEDURE INFORMATION: Exam: CT Head Without Contrast Exam date and time: 10/18/2019 9:54 AM Age: 58 years old Clinical indication: Pain; Headache; Additional info: H/o hydrocephalus ventriculomegaly C/O headache. TECHNIQUE: Imaging protocol: Computed tomography of the head without contrast. Radiation optimization: All CT scans at this facility use at least one of these dose optimization techniques: automated exposure control; mA and/or kV adjustment per patient size (includes targeted exams where dose is matched to clinical indication); or iterative reconstruction. COMPARISON: CT Head without contrast 08/24/2019 4:30 PM FINDINGS: Brain: There is encephalomalacia in the inferior frontal regions, right more than left, as well as in the right anterior temporal region. There is also continued cerebral volume loss. Patchy hypodensity in the periventricular and subcortical white matter of both hemispheres, likely small vessel ischemic disease. Ventricles: Normal. No ventriculomegaly. Bones/joints: Unremarkable. No acute fracture. Sinuses: Mild mucosal thickening in the right maxillary sinus. No fluid levels. Mastoid air cells: Visualized mastoid air cells are well aerated. Soft tissues: Unremarkable. IMPRESSION: 1. No intracranial hemorrhage or evidence of large acute infarct. 2. Cerebral volume loss, with persistent encephalomalacia in the bilateral frontal regions, right more than left, as well as the right anterior temporal region. 3. Cerebral volume loss and patchy small vessel ischemic disease. Electronically signed by: Tamika Spring On 10/18/2019 10:19:56 AM
--- NOTE | 2019-10-18 10:25 | REPVR ---
PROCEDURE INFORMATION: Exam: CT Maxillofacial Without Contrast, Sinus Exam date and time: 10/18/2019 9:54 AM Age: 58 years old Clinical indication: Pain; Other: Snius; Additional info: Sinus congestion pain TECHNIQUE: Imaging protocol: CT Maxillofacial without contrast. Focus on the sinuses. Radiation optimization: All CT scans at this facility use at least one of these dose optimization techniques: automated exposure control; mA and/or kV adjustment per patient size (includes targeted exams where dose is matched to clinical indication); or iterative reconstruction. COMPARISON: 1. CT Head without contrast 10/18/2019 9:50:03 AM 2. MRI-Brain without Contrast 08/24/2019 8:28:[address] Head without contrast 08/24/2019 4:30:54 PM FINDINGS: Frontal sinuses: Normal. No air-fluid levels. Ethmoid air cells: Normal. No air-fluid levels. Sphenoid sinuses: Normal. No air-fluid levels. Maxillary sinuses: There is minimal mucosal thickening in the right maxillary sinus. No air-fluid levels in the paranasal sinuses. Orbits: Orbits are normal. Globes are unremarkable. Nasal cavity/Septum: Minimal nasal septal deviation to the left. Brain: Encephalomalacia seen in the frontal regions bilaterally, right more than left, also in the right anterior temporal region. Cerebral volume loss is again noted. Soft tissues: Unremarkable. Bones/joints: Unremarkable. IMPRESSION: 1. Encephalomalacia in the frontal regions, right more than left, also in the right anterior temporal region, with cerebral volume loss again present. 2. Minimal mucosal thickening in the right maxillary sinus Electronically signed by: Tamika Spring On 10/18/2019 10:25:12 AM
[2019-10-19] MEDS: HEPARIN SOD (PORCINE) 5000UNITS/ML 1ML VIAL/SYRINGE SQ SCH ×3 (05:30→20:15)
[2019-10-19 06:00] VITALS: BP 105/72
[2019-10-19] MEDS: FOLIC ACID 1 MG TAB PO SCH (09:00)
[2019-10-19] MEDS: MULTIVITAMINS/MINERALS THERAP 1 TAB PO SCH (09:00)
[2019-10-19] MEDS: THIAMINE 100 MG TAB PO SCH ×2 (09:00→20:16)
[2019-10-19] MEDS: MAGNESIUM OXIDE 400MG TAB (MAG-OX) PO SCH ×2 (09:00→20:16)
[2019-10-20] MEDS: HEPARIN SOD (PORCINE) 5000UNITS/ML 1ML VIAL/SYRINGE SQ SCH ×3 (05:36→21:07)
[2019-10-20 06:00] VITALS: BP 101/69
[2019-10-20] MEDS: MULTIVITAMINS/MINERALS THERAP 1 TAB PO SCH (09:27)
[2019-10-20] MEDS: MAGNESIUM OXIDE 400MG TAB (MAG-OX) PO SCH ×2 (09:28→21:06)
[2019-10-20] MEDS: THIAMINE 100 MG TAB PO SCH ×2 (09:28→21:06)
[2019-10-20] MEDS: FOLIC ACID 1 MG TAB PO SCH (09:28)
--- NOTE | 2019-10-20 13:01 | IPN ---
DATE: 10/18/2019 SUBJECTIVE: Patient complains of sinus congestion without any discharge, fever or chills. No other complaints. PHYSICAL EXAMINATION: VITALS: Temperature 98.3, pulse 89, respiratory rate 18, blood pressure 101/69, 98% on room air. GENERAL: Patient is quite irritable. Awake, alert, oriented to person, place and time. Answering questions appropriately. Anicteric, no jaundice. No JVD or thyromegaly. LUNGS: Clear to auscultation. No wheezing, rales or rhonchi. HEART: S1, S2, sinus rhythm. ABDOMEN: Soft, nontender, non-distended, positive bowel sounds. EXTREMITIES: No cyanosis, clubbing or edema. SKIN: Patient has no maxillary tenderness. LABORATORY DATA: The 10/04/2019 CBC and metabolic panel have been reviewed. ASSESSMENT AND PLAN: This is a 58-year-old male admitted on 08/24/2019, kept on ALC status, history of alcohol dependence, liver disease, alcoholic hepatitis; status post prednisone, intracranial hemorrhage secondary to TBI from intoxication, brought in due to failure to thrive. IMPRESSION: 1. Failure to thrive. 2. Chronic encephalomalacia with cerebellar atrophy. 3. Hypokalemia. 4. Alcohol dependence; alcoholic liver disease, alcohol hepatitis. 5. History of intracranial hemorrhage due to traumatic brain injury from alcohol intoxication. PLAN: Repeat CT head and maxillofacial sinus are unremarkable with chronic encephalomalacia and no acute or worsening hydrocephalus. No acute sinusitis. Therefore, symptomatic relief for patient's headaches. No empiric antibiotics. Continue on the ALC status. [facility]
[2019-10-20 18:29] LABS: CREATININE FOR GFR 0.83 MG/DL (0.70-1.30); GLOMERULAR FILTRATION RATE > 60.0 (>56)
[2019-10-21 06:00] VITALS: BP 109/79
[2019-10-21] MEDS: HEPARIN SOD (PORCINE) 5000UNITS/ML 1ML VIAL/SYRINGE SQ SCH ×3 (06:19→21:52)
[2019-10-21] MEDS: MAGNESIUM OXIDE 400MG TAB (MAG-OX) PO SCH ×3 (09:33→21:52)
[2019-10-21] MEDS: MULTIVITAMINS/MINERALS THERAP 1 TAB PO SCH (09:34)
[2019-10-21] MEDS: FOLIC ACID 1 MG TAB PO SCH (09:34)
[2019-10-21] MEDS: THIAMINE 100 MG TAB PO SCH ×3 (09:34→21:53)
[2019-10-22 06:00] VITALS: BP 110/76
[2019-10-22] MEDS: HEPARIN SOD (PORCINE) 5000UNITS/ML 1ML VIAL/SYRINGE SQ SCH ×3 (06:33→20:29)
[2019-10-22] MEDS: MULTIVITAMINS/MINERALS THERAP 1 TAB PO SCH ×2 (09:00→09:37)
[2019-10-22] MEDS: THIAMINE 100 MG TAB PO SCH ×3 (09:00→20:30)
[2019-10-22] MEDS: FOLIC ACID 1 MG TAB PO SCH ×2 (09:00→09:37)
[2019-10-22] MEDS: MAGNESIUM OXIDE 400MG TAB (MAG-OX) PO SCH ×3 (09:00→20:30)
[2019-10-23 00:14] LABS: BLOOD UREA NITROGEN 16 MG/DL (7-18); CREATININE FOR GFR 0.71 MG/DL (0.70-1.30); GLOMERULAR FILTRATION RATE > 60.0 (>56); GLUCOSE, FASTING 94 MG/DL (70-100)
[2019-10-23 00:15] LABS: CALCIUM LEVEL 8.1 MG/DL (8.5-10.1); CARBON DIOXIDE LEVEL 26 mmol/L (20-29); CHLORIDE LEVEL 106 MEQ/L (98-107); POTASSIUM SERUM 3.8 MEQ/L (3.5-5.1); SODIUM LEVEL 140 MEQ/L (136-145)
[2019-10-23] MEDS: HEPARIN SOD (PORCINE) 5000UNITS/ML 1ML VIAL/SYRINGE SQ SCH ×3 (05:44→20:03)
[2019-10-23 06:00] VITALS: BP 131/76
[2019-10-23] MEDS: THIAMINE 100 MG TAB PO SCH ×2 (11:00→20:03)
[2019-10-23] MEDS: MULTIVITAMINS/MINERALS THERAP 1 TAB PO SCH (11:00)
[2019-10-23] MEDS: MAGNESIUM OXIDE 400MG TAB (MAG-OX) PO SCH ×2 (11:00→20:03)
[2019-10-23] MEDS: FOLIC ACID 1 MG TAB PO SCH (11:01)
[2019-10-24 06:00] VITALS: BP 136/92
[2019-10-24] MEDS: HEPARIN SOD (PORCINE) 5000UNITS/ML 1ML VIAL/SYRINGE SQ SCH ×3 (06:27→19:54)
[2019-10-24] MEDS: THIAMINE 100 MG TAB PO SCH ×3 (09:06→19:55)
[2019-10-24] MEDS: FOLIC ACID 1 MG TAB PO SCH (09:06)
[2019-10-24] MEDS: MULTIVITAMINS/MINERALS THERAP 1 TAB PO SCH (09:06)
[2019-10-24] MEDS: MAGNESIUM OXIDE 400MG TAB (MAG-OX) PO SCH ×3 (09:06→19:55)
[2019-10-25] MEDS: HEPARIN SOD (PORCINE) 5000UNITS/ML 1ML VIAL/SYRINGE SQ SCH ×3 (04:42→21:56)
[2019-10-25 06:00] VITALS: BP 110/81
[2019-10-25] MEDS: FOLIC ACID 1 MG TAB PO SCH ×2 (09:00→09:15)
[2019-10-25] MEDS: THIAMINE 100 MG TAB PO SCH ×3 (09:00→21:00)
[2019-10-25] MEDS: MULTIVITAMINS/MINERALS THERAP 1 TAB PO SCH ×2 (09:00→09:14)
[2019-10-25] MEDS: MAGNESIUM OXIDE 400MG TAB (MAG-OX) PO SCH ×3 (09:00→21:00)
[2019-10-26] MEDS: HEPARIN SOD (PORCINE) 5000UNITS/ML 1ML VIAL/SYRINGE SQ SCH ×4 (05:14→21:03)
[2019-10-26 06:00] VITALS: BP 140/63
[2019-10-26] MEDS: MAGNESIUM OXIDE 400MG TAB (MAG-OX) PO SCH ×2 (09:58→21:02)
[2019-10-26] MEDS: MULTIVITAMINS/MINERALS THERAP 1 TAB PO SCH (09:59)
[2019-10-26] MEDS: THIAMINE 100 MG TAB PO SCH ×2 (09:59→21:02)
[2019-10-26] MEDS: FOLIC ACID 1 MG TAB PO SCH (09:59)
[2019-10-27] MEDS: HEPARIN SOD (PORCINE) 5000UNITS/ML 1ML VIAL/SYRINGE SQ SCH ×3 (05:39→21:59)
[2019-10-27 06:00] VITALS: BP 112/78
[2019-10-27] MEDS: MULTIVITAMINS/MINERALS THERAP 1 TAB PO SCH ×2 (09:00→09:18)
[2019-10-27] MEDS: MAGNESIUM OXIDE 400MG TAB (MAG-OX) PO SCH ×3 (09:00→21:59)
[2019-10-27] MEDS: THIAMINE 100 MG TAB PO SCH ×3 (09:00→21:59)
[2019-10-27] MEDS: FOLIC ACID 1 MG TAB PO SCH ×2 (09:00→09:17)
[2019-10-28] MEDS: HEPARIN SOD (PORCINE) 5000UNITS/ML 1ML VIAL/SYRINGE SQ SCH ×4 (05:58→21:38)
[2019-10-28 06:00] VITALS: BP 115/80
[2019-10-28] MEDS: FOLIC ACID 1 MG TAB PO SCH (09:00)
[2019-10-28] MEDS: THIAMINE 100 MG TAB PO SCH ×2 (09:00→21:38)
[2019-10-28] MEDS: MULTIVITAMINS/MINERALS THERAP 1 TAB PO SCH (09:00)
[2019-10-28] MEDS: MAGNESIUM OXIDE 400MG TAB (MAG-OX) PO SCH ×2 (09:00→21:38)
[2019-10-29] MEDS: HEPARIN SOD (PORCINE) 5000UNITS/ML 1ML VIAL/SYRINGE SQ SCH ×3 (06:25→21:18)
[2019-10-29] MEDS: FOLIC ACID 1 MG TAB PO SCH ×2 (10:26→13:57)
[2019-10-29] MEDS: MULTIVITAMINS/MINERALS THERAP 1 TAB PO SCH ×2 (10:27→13:57)
[2019-10-29] MEDS: MAGNESIUM OXIDE 400MG TAB (MAG-OX) PO SCH ×3 (10:27→21:18)
[2019-10-29] MEDS: THIAMINE 100 MG TAB PO SCH ×3 (10:28→21:18)
[2019-10-30] MEDS: HEPARIN SOD (PORCINE) 5000UNITS/ML 1ML VIAL/SYRINGE SQ SCH ×3 (05:52→21:31)
[2019-10-30 06:00] VITALS: BP 137/86
[2019-10-30] MEDS: MAGNESIUM OXIDE 400MG TAB (MAG-OX) PO SCH ×2 (14:34→21:30)
[2019-10-30] MEDS: FOLIC ACID 1 MG TAB PO SCH (14:34)
[2019-10-30] MEDS: THIAMINE 100 MG TAB PO SCH ×2 (14:34→21:30)
[2019-10-30] MEDS: MULTIVITAMINS/MINERALS THERAP 1 TAB PO SCH (14:34)
[2019-10-31] MEDS: HEPARIN SOD (PORCINE) 5000UNITS/ML 1ML VIAL/SYRINGE SQ SCH ×3 (05:41→22:37)
[2019-10-31 06:00] VITALS: BP 132/87
[2019-10-31] MEDS: MULTIVITAMINS/MINERALS THERAP 1 TAB PO SCH (09:00)
[2019-10-31] MEDS: MAGNESIUM OXIDE 400MG TAB (MAG-OX) PO SCH ×2 (09:00→22:37)
[2019-10-31] MEDS: FOLIC ACID 1 MG TAB PO SCH (09:00)
[2019-10-31] MEDS: THIAMINE 100 MG TAB PO SCH ×2 (09:00→22:37)
[2019-11-01 06:00] VITALS: BP 124/84
[2019-11-01] MEDS: HEPARIN SOD (PORCINE) 5000UNITS/ML 1ML VIAL/SYRINGE SQ SCH ×3 (06:51→21:09)
[2019-11-01] MEDS: MULTIVITAMINS/MINERALS THERAP 1 TAB PO SCH (11:36)
[2019-11-01] MEDS: FOLIC ACID 1 MG TAB PO SCH (11:37)
[2019-11-01] MEDS: THIAMINE 100 MG TAB PO SCH ×2 (11:37→21:09)
[2019-11-01] MEDS: MAGNESIUM OXIDE 400MG TAB (MAG-OX) PO SCH ×2 (11:37→21:09)
[2019-11-02 06:00] VITALS: BP 133/92
[2019-11-02] MEDS: HEPARIN SOD (PORCINE) 5000UNITS/ML 1ML VIAL/SYRINGE SQ SCH ×3 (06:00→21:36)
[2019-11-02] MEDS: THIAMINE 100 MG TAB PO SCH ×2 (11:10→21:35)
[2019-11-02] MEDS: MAGNESIUM OXIDE 400MG TAB (MAG-OX) PO SCH ×2 (11:10→21:34)
[2019-11-02] MEDS: FOLIC ACID 1 MG TAB PO SCH (11:10)
[2019-11-02] MEDS: MULTIVITAMINS/MINERALS THERAP 1 TAB PO SCH (11:10)
[2019-11-03] MEDS: HEPARIN SOD (PORCINE) 5000UNITS/ML 1ML VIAL/SYRINGE SQ SCH ×3 (05:21→21:14)
[2019-11-03] MEDS: FOLIC ACID 1 MG TAB PO SCH (09:59)
[2019-11-03] MEDS: THIAMINE 100 MG TAB PO SCH ×2 (09:59→21:13)
[2019-11-03] MEDS: MAGNESIUM OXIDE 400MG TAB (MAG-OX) PO SCH ×2 (09:59→21:13)
[2019-11-03] MEDS: MULTIVITAMINS/MINERALS THERAP 1 TAB PO SCH (09:59)
[2019-11-04] MEDS: HEPARIN SOD (PORCINE) 5000UNITS/ML 1ML VIAL/SYRINGE SQ SCH ×3 (05:57→20:26)
[2019-11-04 06:00] VITALS: BP 116/70
[2019-11-04] MEDS: THIAMINE 100 MG TAB PO SCH ×2 (08:29→20:26)
[2019-11-04] MEDS: FOLIC ACID 1 MG TAB PO SCH (08:29)
[2019-11-04] MEDS: MULTIVITAMINS/MINERALS THERAP 1 TAB PO SCH (08:29)
[2019-11-04] MEDS: MAGNESIUM OXIDE 400MG TAB (MAG-OX) PO SCH ×2 (08:30→20:26)
[2019-11-05] MEDS: HEPARIN SOD (PORCINE) 5000UNITS/ML 1ML VIAL/SYRINGE SQ SCH ×3 (05:36→22:00)
[2019-11-05 06:00] VITALS: BP 112/72
[2019-11-05] MEDS: FOLIC ACID 1 MG TAB PO SCH (09:00)
[2019-11-05] MEDS: MAGNESIUM OXIDE 400MG TAB (MAG-OX) PO SCH ×2 (09:00→21:00)
[2019-11-05] MEDS: MULTIVITAMINS/MINERALS THERAP 1 TAB PO SCH (09:00)
[2019-11-05] MEDS: THIAMINE 100 MG TAB PO SCH ×2 (09:00→21:00)
[2019-11-06] MEDS: HEPARIN SOD (PORCINE) 5000UNITS/ML 1ML VIAL/SYRINGE SQ SCH (06:00)
[2019-11-06] MEDS: FOLIC ACID 1 MG TAB PO SCH ×2 (08:17→08:48)
[2019-11-06] MEDS: MAGNESIUM OXIDE 400MG TAB (MAG-OX) PO SCH ×3 (08:17→20:22)
[2019-11-06] MEDS: MULTIVITAMINS/MINERALS THERAP 1 TAB PO SCH ×2 (08:18→08:48)
[2019-11-06] MEDS: THIAMINE 100 MG TAB PO SCH ×3 (08:18→20:22)
[2019-11-06] MEDS: ENOXAPARIN 40MG/0.4ML SYRINGE (J1650 PER 10MG) SC SCH ×2 (09:00→15:37)
--- NOTE | 2019-11-06 11:11 | IPNPDOC ---
Text Note Date of Service The patient was seen on 11/06/19. NOTE Subjective: Fluidly conversant but irritable. Asking why he cannot walk. Does not remember how long he has been in the hospital thinks he just came in. Physical EXAM Vitals: As below General: Lying in bed, Does not appear to be in any distress, conversant, HEENT: NC, AT, PERRLA, EOMI CVS: RRR, +S1S2, no rub murmur or gallop Lungs: Fair air entry bilaterally, No appreciable wheezing / rales / rhonchi Abdomen: Soft, Non-distended, Non-tender, bowel sounds normal Extremities: No lower extremity edema, No calf tenderness Neuro: 5/5 strength at upper / lower extremities bilaterally Skin: No visible rashes No new labs. 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 Patient was brought in by ambulance, and was found to be disoriented and confused. Patient had a CT scan completed of his head that was negative for any acute changes. Admitted for acute encephalopathy and failure to thrive. 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 due to alcohol withdrawal on admission now resolved. MRI: Encephalomalacia bilateral frontal lobes. Encephalomalacia in the right temporal lobe. Moderate to severe microvascular ischemic changes. no other features of withdrawal. Chronic Anemia due to h/o alcohol abuse, poor dietary intake His ferritin is not low. No Folate and vit B12 def Had EGD in 2019 was negative or varices. Hypomagnesemia continue po supplements. 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
[2019-11-06 11:20] LABS: BASO % 0.4 % (0.0-1.0); EOS # 0.1 10^3/uL (0.0-0.5); EOS % 1.4 % (0.0-3.0); HEMATOCRIT 40.4 % (42.0-52.0); LYMPH # 1.3 10^3/uL (1.5-5.0); LYMPH % 23.7 % (24.0-44.0); MEAN CORPUSCULAR HEMOGLOBIN 29.9 pg (27.0-33.0); MEAN CORPUSCULAR HGB CONC 32.2 g/dl (32.0-36.5); MEAN CORPUSCULAR VOLUME 92.9 fl (80.0-96.0); MONO # 0.4 10^3/uL (0.0-0.8); MONO % 7.8 % (0.0-5.0); NEUTROPHILS # 3.7 10^3/uL (1.5-8.5); NEUTROPHILS % 66.2 % (36.0-66.0); PLATELET COUNT, AUTOMATED 228 10^3/uL (150-450); RED BLOOD COUNT 4.35 10^6/uL (4.30-6.10); WHITE BLOOD COUNT 5.6 10^3/uL (4.0-10.0)
[2019-11-06 11:40] LABS: CALCIUM LEVEL 9.8 MG/DL (8.5-10.1); CREATININE FOR GFR 1.4 MG/DL (0.70-1.30); GLOMERULAR FILTRATION RATE 55.6 (>56); MAGNESIUM LEVEL 1.8 MG/DL (1.8-2.4); POTASSIUM SERUM 4.7 MEQ/L (3.5-5.1)
[2019-11-07 06:00] VITALS: BP 108/74
[2019-11-07] MEDS: MULTIVITAMINS/MINERALS THERAP 1 TAB PO SCH (09:07)
[2019-11-07] MEDS: ENOXAPARIN 40MG/0.4ML SYRINGE (J1650 PER 10MG) SC SCH (09:07)
[2019-11-07] MEDS: MAGNESIUM OXIDE 400MG TAB (MAG-OX) PO SCH ×2 (09:08→20:15)
[2019-11-07] MEDS: THIAMINE 100 MG TAB PO SCH ×2 (09:08→20:15)
[2019-11-07] MEDS: FOLIC ACID 1 MG TAB PO SCH (09:08)
[2019-11-08 06:00] VITALS: BP 135/86
[2019-11-08] MEDS: FOLIC ACID 1 MG TAB PO SCH (09:50)
[2019-11-08] MEDS: THIAMINE 100 MG TAB PO SCH ×2 (09:50→20:59)
[2019-11-08] MEDS: MAGNESIUM OXIDE 400MG TAB (MAG-OX) PO SCH ×2 (09:50→21:00)
[2019-11-08] MEDS: MULTIVITAMINS/MINERALS THERAP 1 TAB PO SCH (09:50)
[2019-11-08] MEDS: ENOXAPARIN 40MG/0.4ML SYRINGE (J1650 PER 10MG) SC SCH (09:51)
[2019-11-09 06:00] VITALS: BP 124/86
[2019-11-09] MEDS: ENOXAPARIN 40MG/0.4ML SYRINGE (J1650 PER 10MG) SC SCH ×2 (09:00→10:08)
[2019-11-09] MEDS: FOLIC ACID 1 MG TAB PO SCH (10:00)
[2019-11-09] MEDS: MAGNESIUM OXIDE 400MG TAB (MAG-OX) PO SCH ×2 (10:00→20:36)
[2019-11-09] MEDS: MULTIVITAMINS/MINERALS THERAP 1 TAB PO SCH (10:00)
[2019-11-09] MEDS: THIAMINE 100 MG TAB PO SCH ×2 (10:00→20:35)
[2019-11-10 06:00] VITALS: BP 119/82
[2019-11-10] MEDS: MAGNESIUM OXIDE 400MG TAB (MAG-OX) PO SCH ×2 (08:52→21:14)
[2019-11-10] MEDS: THIAMINE 100 MG TAB PO SCH ×2 (08:52→21:13)
[2019-11-10] MEDS: FOLIC ACID 1 MG TAB PO SCH (08:52)
[2019-11-10] MEDS: MULTIVITAMINS/MINERALS THERAP 1 TAB PO SCH (08:52)
[2019-11-10] MEDS: ENOXAPARIN 40MG/0.4ML SYRINGE (J1650 PER 10MG) SC SCH ×2 (08:53→12:02)
[2019-11-10 10:14] LABS: HEMOGLOBIN 9.7 g/dl (13.5-17.5); MEAN CORPUSCULAR HEMOGLOBIN 31.3 pg (27.0-33.0); MEAN CORPUSCULAR HGB CONC 31.3 g/dl (32.0-36.5); PLATELET COUNT, AUTOMATED 276 10^3/uL (150-450); WHITE BLOOD COUNT 4.9 10^3/uL (4.0-10.0)
--- NOTE | 2019-11-10 11:51 | IPN ---
DATE: 10/31/2019 SUBJECTIVE: Patient was seen at the bedside. Chart has been reviewed. Per nursing, the patient has been extremely belligerent and combative, refusing to take his medications this morning. Patient refused interview and examination this morning with me. He told me to get out. Per nursing, patient wanted his feet looked at and for Podiatry to cut his toenails, however he is refusing examination today and would not permit me to examine his feet. PHYSICAL EXAMINATION: VITAL SIGNS: Temperature 98.4, pulse 98, respiratory rate 18, blood pressure 132/87, 100% on room air. I am unable to complete the exam as the patient refused. ASSESSMENT AND PLAN: This is a 59-year-old male awaiting placement. History of alcohol abuse. IMPRESSION: 1. Failure to thrive. 2. Chronic encephalopathy with cerebellar atrophy. 3. Hypokalemia. 4. Alcohol dependence. 5. Alcoholic liver disease. 6. Alcoholic hepatitis. 7. History of intracranial hemorrhage with traumatic brain injury from alcohol intoxication. 8. Encephalomalacia. PLAN: Await placement. [facility]
[2019-11-11 06:00] VITALS: BP 120/83
[2019-11-11] MEDS: FOLIC ACID 1 MG TAB PO SCH (10:58)
[2019-11-11] MEDS: MAGNESIUM OXIDE 400MG TAB (MAG-OX) PO SCH ×2 (10:58→20:47)
[2019-11-11] MEDS: MULTIVITAMINS/MINERALS THERAP 1 TAB PO SCH (10:58)
[2019-11-11] MEDS: THIAMINE 100 MG TAB PO SCH ×2 (10:59→20:46)
[2019-11-11] MEDS: ENOXAPARIN 40MG/0.4ML SYRINGE (J1650 PER 10MG) SC SCH (10:59)
[2019-11-12 06:00] VITALS: BP 127/86
[2019-11-12] MEDS: FOLIC ACID 1 MG TAB PO SCH (08:35)
[2019-11-12] MEDS: THIAMINE 100 MG TAB PO SCH ×2 (08:36→21:19)
[2019-11-12] MEDS: MULTIVITAMINS/MINERALS THERAP 1 TAB PO SCH (08:36)
[2019-11-12] MEDS: MAGNESIUM OXIDE 400MG TAB (MAG-OX) PO SCH ×2 (08:36→21:19)
[2019-11-12] MEDS: ENOXAPARIN 40MG/0.4ML SYRINGE (J1650 PER 10MG) SC SCH (08:37)
[2019-11-13 06:00] VITALS: BP 116/81
[2019-11-13] MEDS: MAGNESIUM OXIDE 400MG TAB (MAG-OX) PO SCH ×4 (09:00→21:00)
[2019-11-13] MEDS: ENOXAPARIN 40MG/0.4ML SYRINGE (J1650 PER 10MG) SC SCH ×2 (09:00→11:47)
[2019-11-13] MEDS: MULTIVITAMINS/MINERALS THERAP 1 TAB PO SCH ×2 (09:00→11:46)
[2019-11-13] MEDS: THIAMINE 100 MG TAB PO SCH ×4 (09:00→21:00)
[2019-11-13] MEDS: FOLIC ACID 1 MG TAB PO SCH ×2 (09:00→11:46)
--- NOTE | 2019-11-13 10:26 | IPNPDOC ---
Text Note Date of Service The patient was seen on 11/13/19. NOTE Subjective: Pt refuses to talk to me and won't let me examine him. Asks me to go away and to leave him alone. Physical EXAM Vitals: As below Pt refused exam Pt refused labs. 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 Patient was brought in by ambulance, and was found to be disoriented and confused. Patient had a CT scan completed of his head that was negative for any acute changes. Admitted for acute encephalopathy and failure to thrive. 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 due to alcohol withdrawal on admission now resolved. MRI: Encephalomalacia bilateral frontal lobes. Encephalomalacia in the right temporal lobe. Moderate to severe microvascular ischemic changes. no other features of withdrawal. Chronic Anemia due to h/o alcohol abuse, poor dietary intake His ferritin is not low. No Folate and vit B12 def Had EGD in 2018 was negative or varices. Hypomagnesemia continue po supplements. 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
[2019-11-14 06:00] VITALS: BP 112/78
[2019-11-14] MEDS: MULTIVITAMINS/MINERALS THERAP 1 TAB PO SCH ×2 (09:00→13:58)
[2019-11-14] MEDS: FOLIC ACID 1 MG TAB PO SCH ×2 (09:00→13:57)
[2019-11-14] MEDS: MAGNESIUM OXIDE 400MG TAB (MAG-OX) PO SCH ×3 (09:00→21:03)
[2019-11-14] MEDS: THIAMINE 100 MG TAB PO SCH ×3 (09:00→21:03)
[2019-11-14] MEDS: ENOXAPARIN 40MG/0.4ML SYRINGE (J1650 PER 10MG) SC SCH (13:58)
[2019-11-15 06:00] VITALS: BP 109/71
[2019-11-15] MEDS: THIAMINE 100 MG TAB PO SCH ×3 (09:00→21:00)
[2019-11-15] MEDS: FOLIC ACID 1 MG TAB PO SCH ×2 (09:00→13:46)
[2019-11-15] MEDS: MAGNESIUM OXIDE 400MG TAB (MAG-OX) PO SCH ×3 (09:00→21:00)
[2019-11-15] MEDS: MULTIVITAMINS/MINERALS THERAP 1 TAB PO SCH ×2 (09:00→13:47)
[2019-11-15] MEDS: ENOXAPARIN 40MG/0.4ML SYRINGE (J1650 PER 10MG) SC SCH ×2 (13:47→14:22)
[2019-11-16 06:00] VITALS: BP 115/69
[2019-11-16] MEDS: MAGNESIUM OXIDE 400MG TAB (MAG-OX) PO SCH ×2 (08:25→19:26)
[2019-11-16] MEDS: MULTIVITAMINS/MINERALS THERAP 1 TAB PO SCH (08:25)
[2019-11-16] MEDS: FOLIC ACID 1 MG TAB PO SCH (08:25)
[2019-11-16] MEDS: THIAMINE 100 MG TAB PO SCH ×2 (08:25→19:27)
[2019-11-17 06:00] VITALS: BP 107/79
[2019-11-17] MEDS: ENOXAPARIN 40MG/0.4ML SYRINGE (J1650 PER 10MG) SC SCH ×2 (09:00→16:06)
[2019-11-17] MEDS: MULTIVITAMINS/MINERALS THERAP 1 TAB PO SCH (09:00)
[2019-11-17] MEDS: MAGNESIUM OXIDE 400MG TAB (MAG-OX) PO SCH ×2 (09:00→21:00)
[2019-11-17] MEDS: FOLIC ACID 1 MG TAB PO SCH (09:00)
[2019-11-17] MEDS: THIAMINE 100 MG TAB PO SCH ×2 (09:00→21:00)
[2019-11-18] MEDS: ENOXAPARIN 40MG/0.4ML SYRINGE (J1650 PER 10MG) SC SCH (09:23)
[2019-11-18] MEDS: MULTIVITAMINS/MINERALS THERAP 1 TAB PO SCH (09:23)
[2019-11-18] MEDS: FOLIC ACID 1 MG TAB PO SCH (09:23)
[2019-11-18] MEDS: MAGNESIUM OXIDE 400MG TAB (MAG-OX) PO SCH ×2 (09:23→21:00)
[2019-11-18] MEDS: THIAMINE 100 MG TAB PO SCH ×2 (09:23→21:00)
[2019-11-19] MEDS: ENOXAPARIN 40MG/0.4ML SYRINGE (J1650 PER 10MG) SC SCH (10:26)
[2019-11-19] MEDS: MAGNESIUM OXIDE 400MG TAB (MAG-OX) PO SCH ×2 (10:26→21:30)
[2019-11-19] MEDS: MULTIVITAMINS/MINERALS THERAP 1 TAB PO SCH (10:26)
[2019-11-19] MEDS: THIAMINE 100 MG TAB PO SCH ×2 (10:26→21:30)
[2019-11-19] MEDS: FOLIC ACID 1 MG TAB PO SCH (10:26)
[2019-11-20 06:00] VITALS: BP 109/76
[2019-11-20 08:59] LABS: HEMATOCRIT 37.7 % (42.0-52.0); HEMOGLOBIN 11.9 g/dl (13.5-17.5); MEAN CORPUSCULAR HEMOGLOBIN 28.9 pg (27.0-33.0); MEAN CORPUSCULAR HGB CONC 31.6 g/dl (32.0-36.5); MEAN CORPUSCULAR VOLUME 91.5 fl (80.0-96.0); PLATELET COUNT, AUTOMATED 205 10^3/uL (150-450); RED BLOOD COUNT 4.12 10^6/uL (4.30-6.10); WHITE BLOOD COUNT 5.9 10^3/uL (4.0-10.0)
[2019-11-20] MEDS: FOLIC ACID 1 MG TAB PO SCH (09:14)
[2019-11-20] MEDS: MULTIVITAMINS/MINERALS THERAP 1 TAB PO SCH (09:16)
[2019-11-20] MEDS: THIAMINE 100 MG TAB PO SCH ×2 (09:16→21:03)
[2019-11-20] MEDS: MAGNESIUM OXIDE 400MG TAB (MAG-OX) PO SCH (09:16)
[2019-11-20] MEDS: ENOXAPARIN 40MG/0.4ML SYRINGE (J1650 PER 10MG) SC SCH (09:17)
[2019-11-20 09:19] LABS: ALBUMIN 3.3 GM/DL (3.2-5.2); ALT/SGPT 21 U/L (12-78); BILIRUBIN,TOTAL 0.5 MG/DL (0.2-1.0); BLOOD UREA NITROGEN 25 MG/DL (7-18); CARBON DIOXIDE LEVEL 27 MEQ/L (21-32); CHLORIDE LEVEL 107 MEQ/L (98-107); GLOMERULAR FILTRATION RATE > 60.0 (>56); GLUCOSE, FASTING 126 MG/DL (70-100); POTASSIUM SERUM 4.2 MEQ/L (3.5-5.1); SODIUM LEVEL 140 MEQ/L (136-145); TOTAL PROTEIN 6.6 GM/DL (6.4-8.2)
[2019-11-20] MEDS: CETIRIZINE (ZyrTEC) 10 MG TAB PO SCH (11:18)
[2019-11-20 11:20] VITALS: BP_SYST 126; BP_SYST 127; BP_SYST 157; BP_DIAS 89; BP_DIAS 91; BP_DIAS 99
--- NOTE | 2019-11-20 12:15 | IPNPDOC ---
Date Seen The patient was seen on 11/20/19. Progress Note Subjective: Cooperative with me this AM. Awake, alert and oriented x 2. Concerned about how he has had bowel incontinence for almost a month now. Could be 2/2 to magnesium BID, not infectious and is not watery, twice daily and nonbloody in appearance. Will stop magnesium and check another level this coming Wed to see if need to continue. Would like to be reevaluated with physical therapy, placed order. Increased dizziness with movements, tested + for orthostatics today. Denies chest pain, n/v/d, fevers, chills, shortness of breath. Physical EXAM Vitals: As below General: Lying in bed, Does not appear to be in any distress, conversant HEENT: NC, AT, PERRLA, EOMI CVS: RRR, +S1S2, no rub murmur or gallop Lungs: Fair air entry bilaterally, No appreciable wheezing / rales / rhonchi Abdomen: Soft, Non-distended, Non-tender, bowel sounds normal Extremities: No lower extremity edema, No calf tenderness Neuro: 5/5 strength at upper / lower extremities bilaterally Skin: No visible rashes LABORATORY: Please see below ASSESSMENT: Patient is a 58-year-old male with a PMHx of Alcoholic dependence, Alcoholic liver disease, Hx of Alcohol withdrawal (Delirium / Seizures), Hx of intracranial hemorrhage 2/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 Admitted for acute encephalopathy and failure to thrive. PLAN: Loose stools/bowel incontinence likely 2/2 to magnesium supplement and him not being able to get to bathroom quick enough. Unlikely infectious Loose but not watery, twice a day. Unable to send C. diff and GI panel based on low frequency, consistently and no other RF for either D/c magnesium supplement, see if this helps Hypomagnesemia 2/2 to hx of alcohol abuse Last magnesium 11/05 was wnl on supplement BID Stopped mag oxide BID due to loose stools Recheck level mid-week and correlate if any improvement being off magnesium supplement, see if can keep off or place on another form of mag that is less known to cause loose stools. 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 Would like him reassessed, f/u results Chronic Anemia likely 2/2 to due to h/o alcohol abuse, poor dietary intake His ferritin is not low. No s/s of acute bleeding No Folate and vit B12 def Had EGD in 2018 was negative or varices. 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 Encephalomalacia in the right temporal lobe. Moderate to severe microvascular ischemic changes. no other features of withdrawal. DVT prophylaxis Lovenox DISPOSITION: Please see plan above. Had a good meeting with him today. Will d/w SW in the AM. Discharge plan undecided for at this time. VS, I&O, 24H, Fishbone Vital Signs/I&O Vital Signs Date Time Temp Pulse Resp B/P (MAP) Pulse Ox O2 Delivery O2 Flow Rate FiO2 11/20/19 11:20 93 126/89 (101) 101 127/91 (103) 121 157/99 (118) 11/20/19 06:00 98.1 18 97 Room Air I&O- Last 24 Hours up to 6 AM 11/20/19 06:00 Intake Total 2225 ml Output Total 1920 ml Balance 305 ml Laboratory Data 24H LABS Laboratory Tests 2 11/20/19 08:46: Nucleated Red Blood Cells % (auto) 0.0, Anion Gap 6L, Glomerular Filtration Rate > 60.0, Calcium Level 9.0, Total Bilirubin 0.5, Aspartate Amino Transf (AST/SGOT) 14, Alanine Aminotransferase (ALT/SGPT) 21, Alkaline Phosphatase 91, Total Protein 6.6, Albumin 3.3, Albumin/Globulin Ratio 1.0 CBC/BMP Laboratory Tests 11/20/19 08:46 Current Medications Current Medications Medications (Trade) Dose Ordered Sig/Leah Route PRN Reason Start Time Stop Time Status Last Admin Dose Admin Acetaminophen (Tylenol Tab) 650 mg Q4H PRN PO PAIN OR FEVER 08/24/19 19:30 09/24/19 13:26 DC Acetaminophen (Tylenol Tab) 650 mg Q4H PRN PO PAIN / FEVER 09/27/19 19:00 10/17/19 16:39 Cetirizine HCl (ZyrTEC) 10 mg DAILY PO 11/20/19 09:00 11/20/19 11:18 Enoxaparin Sodium (Lovenox) 40 mg DAILY SC 11/06/19 09:00 11/20/19 09:17 Folic Acid (Folic Acid) 1 mg DAILY PO 08/24/19 09:00 08/24/19 19:33 DC Folic Acid (Folic Acid) 1 mg DAILY PO 08/25/19 09:00 09/24/19 13:26 DC 09/01/19 08:11 Folic Acid (Folic Acid) 1 mg DAILY PO 09/28/19 09:00 11/20/19 09:14 Heparin Sodium (Porcine) (Heparin) 5,000 units Q8H SC 08/24/19 22:00 09/24/19 13:16 DC 09/01/19 05:10 Heparin Sodium (Porcine) (Heparin) 5,000 units Q8H SQ 09/27/19 22:00 11/06/19 10:58 DC 11/05/19 05:36 Home Med (Med Rec Complete!) ASDIRECTED XX 08/24/19 18:00 08/24/19 17:54 DC Lorazepam (Ativan) 2 mg ASDIRECTED PRN PO SEE PROTOCOL 08/24/19 19:30 08/28/19 05:27 DC 08/24/19 22:22 Magnesium Oxide (Mag-Ox) 400 mg BID PO 08/29/19 09:00 09/27/19 08:03 DC 09/01/19 08:12 Magnesium Oxide (Mag-Ox) 400 mg BID PO 09/27/19 21:00 11/20/19 10:17 DC 11/20/19 09:16 Magnesium Sulfate/ Dextrose 1 gm/IV Miscellaneous Supplies 100 ml @ 100 mls/hr Q1H IV 08/25/19 09:00 08/25/19 10:59 DC 08/25/19 10:29 Menthol/Methyl Salicylate (Bengay Cream) 1 dose TIDP PRN TOP PAIN OR DISCOMFORT 10/16/19 16:00 Multivitamins (Theragram-M) 1 tab DAILY PO 08/25/19 09:00 09/24/19 13:26 DC 09/01/19 08:12 Multivitamins (Theragram-M) 1 tab DAILY PO 09/28/19 09:00 11/20/19 09:16 Nystatin (Mycostatin Powder, Nystop) apply to affected area... BIDP PRN TOP RASH 10/08/19 13:00 10/17/19 21:00 Oxazepam (Serax) 10 mg BID PO 08/26/19 21:00 08/27/19 06:56 DC Oxazepam (Serax) 10 mg DAILY PO 08/27/19 09:00 08/29/19 07:45 DC 08/28/19 09:49 Oxazepam (Serax) 10 mg DAILY PO 08/30/19 09:00 09/24/19 13:17 DC 09/01/19 08:11 Oxazepam (Serax) 10 mg DAILY PO 09/28/19 09:00 Cancel Oxazepam (Serax) 10 mg Q8H PO 08/24/19 22:00 08/26/19 16:54 DC 08/26/19 05:57 Sodium Chloride (Saline Lock Flush) 2 ml ASDIRECTED PRN IV SEE LABEL COMMENTS 08/25/19 06:00 08/31/19 14:19 DC Sodium Chloride (Saline Lock Flush) 2 ml SLF IV 08/25/19 06:00 08/31/19 14:19 DC 08/30/19 14:58 Thiamine HCl (Thiamine HCl) 100 mg BID PO 08/24/19 20:00 09/24/19 13:26 DC 09/01/19 08:11 Thiamine HCl (Thiamine HCl) 100 mg BID PO 09/27/19 21:00 11/20/19 09:16 Allergies Coded Allergies: ceftriaxone (Verified Adverse Reaction, Intermediate, FEELS LIKE "PASSING OUT", 08/17/18) Stefani Chen MD Nov 20, 2019 12:15
[2019-11-21 06:00] VITALS: BP 119/64
[2019-11-21] MEDS: ENOXAPARIN 40MG/0.4ML SYRINGE (J1650 PER 10MG) SC SCH (09:00)
[2019-11-21] MEDS: FOLIC ACID 1 MG TAB PO SCH (09:40)
[2019-11-21] MEDS: MULTIVITAMINS/MINERALS THERAP 1 TAB PO SCH (09:40)
[2019-11-21] MEDS: THIAMINE 100 MG TAB PO SCH ×2 (09:40→19:35)
[2019-11-21] MEDS: CETIRIZINE (ZyrTEC) 10 MG TAB PO SCH (09:40)
[2019-11-22 04:00] VITALS: BP 104/64
[2019-11-22] MEDS: CETIRIZINE (ZyrTEC) 10 MG TAB PO SCH (07:35)
[2019-11-22] MEDS: ENOXAPARIN 40MG/0.4ML SYRINGE (J1650 PER 10MG) SC SCH (07:36)
[2019-11-22] MEDS: THIAMINE 100 MG TAB PO SCH ×2 (07:36→20:26)
[2019-11-22] MEDS: FOLIC ACID 1 MG TAB PO SCH (07:36)
[2019-11-22] MEDS: MULTIVITAMINS/MINERALS THERAP 1 TAB PO SCH (07:36)
[2019-11-23 06:00] VITALS: BP 136/71
[2019-11-23] MEDS: CETIRIZINE (ZyrTEC) 10 MG TAB PO SCH (13:45)
[2019-11-23] MEDS: MULTIVITAMINS/MINERALS THERAP 1 TAB PO SCH (13:45)
[2019-11-23] MEDS: THIAMINE 100 MG TAB PO SCH ×2 (13:45→20:09)
[2019-11-23] MEDS: FOLIC ACID 1 MG TAB PO SCH (13:45)
[2019-11-23] MEDS: ENOXAPARIN 40MG/0.4ML SYRINGE (J1650 PER 10MG) SC SCH (13:45)
[2019-11-24 06:00] VITALS: BP 137/82
[2019-11-24] MEDS: THIAMINE 100 MG TAB PO SCH ×2 (09:00→20:00)
[2019-11-24] MEDS: FOLIC ACID 1 MG TAB PO SCH (18:31)
[2019-11-24] MEDS: ENOXAPARIN 40MG/0.4ML SYRINGE (J1650 PER 10MG) SC SCH (18:31)
[2019-11-24] MEDS: CETIRIZINE (ZyrTEC) 10 MG TAB PO SCH (18:31)
[2019-11-24] MEDS: MULTIVITAMINS/MINERALS THERAP 1 TAB PO SCH (18:31)
[2019-11-25] MEDS: MULTIVITAMINS/MINERALS THERAP 1 TAB PO SCH (09:00)
[2019-11-25] MEDS: FOLIC ACID 1 MG TAB PO SCH (09:00)
[2019-11-25] MEDS: CETIRIZINE (ZyrTEC) 10 MG TAB PO SCH (09:00)
[2019-11-25] MEDS: ENOXAPARIN 40MG/0.4ML SYRINGE (J1650 PER 10MG) SC SCH (09:00)
[2019-11-25] MEDS: THIAMINE 100 MG TAB PO SCH ×2 (09:00→20:19)
[2019-11-26] MEDS: ENOXAPARIN 40MG/0.4ML SYRINGE (J1650 PER 10MG) SC SCH ×2 (09:00→10:02)
[2019-11-26] MEDS: THIAMINE 100 MG TAB PO SCH ×2 (09:57→20:31)
[2019-11-26] MEDS: FOLIC ACID 1 MG TAB PO SCH (09:57)
[2019-11-26] MEDS: CETIRIZINE (ZyrTEC) 10 MG TAB PO SCH (09:57)
[2019-11-26] MEDS: MULTIVITAMINS/MINERALS THERAP 1 TAB PO SCH (09:57)
[2019-11-27 06:00] VITALS: BP 130/80
[2019-11-27] MEDS: THIAMINE 100 MG TAB PO SCH ×2 (08:55→20:04)
[2019-11-27] MEDS: FOLIC ACID 1 MG TAB PO SCH (08:55)
[2019-11-27] MEDS: MULTIVITAMINS/MINERALS THERAP 1 TAB PO SCH (08:55)
[2019-11-27] MEDS: CETIRIZINE (ZyrTEC) 10 MG TAB PO SCH (08:55)
[2019-11-27] MEDS: ENOXAPARIN 40MG/0.4ML SYRINGE (J1650 PER 10MG) SC SCH (08:56)
[2019-11-28 06:00] VITALS: BP 118/75
[2019-11-28] MEDS: ENOXAPARIN 40MG/0.4ML SYRINGE (J1650 PER 10MG) SC SCH (13:38)
[2019-11-28] MEDS: MULTIVITAMINS/MINERALS THERAP 1 TAB PO SCH (13:48)
[2019-11-28] MEDS: FOLIC ACID 1 MG TAB PO SCH (13:48)
[2019-11-28] MEDS: CETIRIZINE (ZyrTEC) 10 MG TAB PO SCH (13:49)
[2019-11-28] MEDS: THIAMINE 100 MG TAB PO SCH ×2 (13:49→20:12)
[2019-11-29 06:00] VITALS: BP 140/92
[2019-11-29] MEDS: MULTIVITAMINS/MINERALS THERAP 1 TAB PO SCH (10:06)
[2019-11-29] MEDS: FOLIC ACID 1 MG TAB PO SCH (10:07)
[2019-11-29] MEDS: ENOXAPARIN 40MG/0.4ML SYRINGE (J1650 PER 10MG) SC SCH (10:07)
[2019-11-29] MEDS: THIAMINE 100 MG TAB PO SCH ×3 (10:07→20:14)
[2019-11-29] MEDS: CETIRIZINE (ZyrTEC) 10 MG TAB PO SCH (10:07)
--- NOTE | 2019-11-29 20:02 | IPNPDOC ---
Date Seen The patient was seen on 11/29/19. Progress Note Subjective: No acute complaints. Denies chest pain, n/v/d, fevers, chills, shortness of breath. Physical EXAM Vitals: As below General: Lying in bed, Does not appear to be in any distress, conversant, pleasant HEENT: NC, AT, PERRLA, EOMI CVS: RRR, +S1S2, no rub murmur or gallop Lungs: CTAB, No appreciable wheezing / rales / rhonchi Abdomen: Soft, Non-distended, Non-tender, bowel sounds normal Extremities: No lower extremity edema, No calf tenderness Neuro: 5/5 strength at upper / lower extremities bilaterally Skin: No visible rashes LABORATORY: Please see below ASSESSMENT: Patient is a 58-year-old male with a PMHx of Alcoholic dependence, Alcoholic liver disease, Hx of Alcohol withdrawal (Delirium / Seizures), Hx of intracranial hemorrhage 2/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 Admitted for acute encephalopathy and failure to thrive. 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 Not suspicious of infectious cause. Improved with stopping magnesium Repeat magnesium borderline normal at 1.8 Hypomagnesemia 2/2 to hx of alcohol abuse Last magnesium wnl Stopped mag oxide BID due to loose stools Failure to thrive Hx Eating well currently, according to nursing this can wax and wane Patient is a chronic alcoholic Thiamine / Folate / MVI Refusing PT/OT Chronic Anemia likely 2/2 to due to h/o alcohol abuse, poor dietary intake No s/s of acute bleeding No Folate and vit B12 def Had EGD in 2019 was negative or varices. 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 Encephalomalacia in the right temporal lobe. Moderate to severe microvascular ischemic changes. no other features of withdrawal. DVT prophylaxis Lovenox DISPOSITION: Remains in ALC status. Discharge plan undecided for at this time. VS, I&O, 24H, Fishbone Vital Signs/I&O Vital Signs Date Time Temp Pulse Resp B/P (MAP) Pulse Ox O2 Delivery O2 Flow Rate FiO2 11/29/19 06:00 98.2 87 18 140/92 (108) 97 Room Air l I&O- Last 24 Hours up to 6 AM 11/29/19 05:59 Intake Total 1480 ml Output Total 1550 ml Balance -70 ml Current Medications Current Medications Medications (Trade) Dose Ordered Sig/Leah Route PRN Reason Start Time Stop Time Status Last Admin Dose Admin Acetaminophen (Tylenol Tab) 650 mg Q4H PRN PO PAIN OR FEVER 08/24/19 19:30 09/24/19 13:26 DC Acetaminophen (Tylenol Tab) 650 mg Q4H PRN PO PAIN / FEVER 09/27/19 19:00 10/17/19 16:39 Cetirizine HCl (ZyrTEC) 10 mg DAILY PO 11/20/19 09:00 11/29/19 10:07 Enoxaparin Sodium (Lovenox) 40 mg DAILY SC 11/06/19 09:00 11/29/19 10:07 Folic Acid (Folic Acid) 1 mg DAILY PO 08/24/19 09:00 08/24/19 19:33 DC Folic Acid (Folic Acid) 1 mg DAILY PO 08/25/19 09:00 09/24/19 13:26 DC 09/01/19 08:11 Folic Acid (Folic Acid) 1 mg DAILY PO 09/28/19 09:00 11/29/19 10:07 Heparin Sodium (Porcine) (Heparin) 5,000 units Q8H SC 08/24/19 22:00 09/24/19 13:16 DC 09/01/19 05:10 Heparin Sodium (Porcine) (Heparin) 5,000 units Q8H SQ 09/27/19 22:00 11/06/19 10:58 DC 11/05/19 05:36 Home Med (Med Rec Complete!) ASDIRECTED XX 08/24/19 18:00 08/24/19 17:54 DC Lorazepam (Ativan) 2 mg ASDIRECTED PRN PO SEE PROTOCOL 08/24/19 19:30 08/28/19 05:27 DC 08/24/19 22:22 Magnesium Oxide (Mag-Ox) 400 mg BID PO 08/29/19 09:00 09/27/19 08:03 DC 09/01/19 08:12 Magnesium Oxide (Mag-Ox) 400 mg BID PO 09/27/19 21:00 11/20/19 10:17 DC 11/20/19 09:16 Magnesium Sulfate/ Dextrose 1 gm/IV Miscellaneous Supplies 100 ml @ 100 mls/hr Q1H IV 08/25/19 09:00 08/25/19 10:59 DC 08/25/19 10:29 Menthol/Methyl Salicylate (Bengay Cream) 1 dose TIDP PRN TOP PAIN OR DISCOMFORT 10/16/19 16:00 Miscellaneous (Unresolved Clarification Entry) SEE LABEL COMMENTS DAILY XX 11/27/19 09:00 11/28/19 07:39 DC Multivitamins (Theragram-M) 1 tab DAILY PO 08/25/19 09:00 09/24/19 13:26 DC 09/01/19 08:12 Multivitamins (Theragram-M) 1 tab DAILY PO 09/28/19 09:00 11/29/19 10:06 Nystatin (Mycostatin Powder, Nystop) apply to affected area... BIDP PRN TOP RASH 10/08/19 13:00 10/17/19 21:00 Oxazepam (Serax) 10 mg BID PO 08/26/19 21:00 08/27/19 06:56 DC Oxazepam (Serax) 10 mg DAILY PO 08/27/19 09:00 08/29/19 07:45 DC 08/28/19 09:49 Oxazepam (Serax) 10 mg DAILY PO 08/30/19 09:00 09/24/19 13:17 DC 09/01/19 08:11 Oxazepam (Serax) 10 mg DAILY PO 09/28/19 09:00 Cancel Oxazepam (Serax) 10 mg Q8H PO 08/24/19 22:00 08/26/19 16:54 DC 08/26/19 05:57 Sodium Chloride (Saline Lock Flush) 2 ml ASDIRECTED PRN IV SEE LABEL COMMENTS 08/25/19 06:00 08/31/19 14:19 DC Sodium Chloride (Saline Lock Flush) 2 ml SLF IV 08/25/19 06:00 08/31/19 14:19 DC 08/30/19 14:58 Thiamine HCl (Thiamine HCl) 100 mg BID PO 08/24/19 20:00 09/24/19 13:26 DC 09/01/19 08:11 Thiamine HCl (Thiamine HCl) 100 mg BID PO 09/27/19 21:00 11/29/19 10:07 Allergies Coded Allergies: ceftriaxone (Verified Adverse Reaction, Intermediate, FEELS LIKE "PASSING OUT", 08/17/18) Stefani Chen MD Nov 29, 2019 20:02
[2019-11-30 06:00] VITALS: BP 123/77
[2019-11-30] MEDS: ENOXAPARIN 40MG/0.4ML SYRINGE (J1650 PER 10MG) SC SCH (10:27)
[2019-11-30] MEDS: MULTIVITAMINS/MINERALS THERAP 1 TAB PO SCH (10:27)
[2019-11-30] MEDS: THIAMINE 100 MG TAB PO SCH ×2 (10:27→20:32)
[2019-11-30] MEDS: FOLIC ACID 1 MG TAB PO SCH (10:27)
[2019-11-30] MEDS: CETIRIZINE (ZyrTEC) 10 MG TAB PO SCH (10:27)
[2019-12-01 06:00] VITALS: BP 120/80
[2019-12-01] MEDS ORDERED: FLUBLOK(EGG FREE)(QUAD)INFLUENZA VACC 0.5ML SYRINGE 18YRS & OLDER IM ONE (09:00)
[2019-12-01] MEDS: THIAMINE 100 MG TAB PO SCH ×2 (15:54→20:15)
[2019-12-01] MEDS: ENOXAPARIN 40MG/0.4ML SYRINGE (J1650 PER 10MG) SC SCH (16:55)
[2019-12-01] MEDS: FOLIC ACID 1 MG TAB PO SCH (17:04)
[2019-12-01] MEDS: MULTIVITAMINS/MINERALS THERAP 1 TAB PO SCH (17:04)
[2019-12-01] MEDS: CETIRIZINE (ZyrTEC) 10 MG TAB PO SCH (17:05)
[2019-12-02 06:00] VITALS: BP 118/79
[2019-12-02] MEDS: MULTIVITAMINS/MINERALS THERAP 1 TAB PO SCH (09:00)
[2019-12-02] MEDS: ENOXAPARIN 40MG/0.4ML SYRINGE (J1650 PER 10MG) SC SCH (09:00)
[2019-12-02] MEDS: THIAMINE 100 MG TAB PO SCH ×2 (09:00→21:53)
[2019-12-02] MEDS: CETIRIZINE (ZyrTEC) 10 MG TAB PO SCH (09:00)
[2019-12-02] MEDS: FOLIC ACID 1 MG TAB PO SCH (09:00)
[2019-12-03 06:00] VITALS: BP 110/75
[2019-12-03] MEDS: THIAMINE 100 MG TAB PO SCH ×2 (13:48→21:19)
[2019-12-03] MEDS: CETIRIZINE (ZyrTEC) 10 MG TAB PO SCH (13:48)
[2019-12-03] MEDS: MULTIVITAMINS/MINERALS THERAP 1 TAB PO SCH (13:48)
[2019-12-03] MEDS: FOLIC ACID 1 MG TAB PO SCH (13:48)
[2019-12-03] MEDS: ENOXAPARIN 40MG/0.4ML SYRINGE (J1650 PER 10MG) SC SCH (13:49)
[2019-12-04 06:00] VITALS: BP 130/80
[2019-12-04] MEDS: ENOXAPARIN 40MG/0.4ML SYRINGE (J1650 PER 10MG) SC SCH ×2 (12:19→12:38)
[2019-12-04] MEDS: FOLIC ACID 1 MG TAB PO SCH (12:37)
[2019-12-04] MEDS: MULTIVITAMINS/MINERALS THERAP 1 TAB PO SCH (12:37)
[2019-12-04] MEDS: CETIRIZINE (ZyrTEC) 10 MG TAB PO SCH (12:38)
[2019-12-04] MEDS: THIAMINE 100 MG TAB PO SCH ×2 (12:38→21:36)
[2019-12-05 06:00] VITALS: BP 122/80
[2019-12-05] MEDS: CETIRIZINE (ZyrTEC) 10 MG TAB PO SCH ×2 (11:35→14:47)
[2019-12-05] MEDS: ENOXAPARIN 40MG/0.4ML SYRINGE (J1650 PER 10MG) SC SCH ×2 (11:35→14:47)
[2019-12-05] MEDS: MULTIVITAMINS/MINERALS THERAP 1 TAB PO SCH ×2 (11:35→14:47)
[2019-12-05] MEDS: THIAMINE 100 MG TAB PO SCH ×3 (11:35→21:00)
[2019-12-05] MEDS: FOLIC ACID 1 MG TAB PO SCH ×2 (11:35→14:47)
[2019-12-06 06:00] VITALS: BP 139/77
[2019-12-06] MEDS: FOLIC ACID 1 MG TAB PO SCH (09:00)
[2019-12-06] MEDS: CETIRIZINE (ZyrTEC) 10 MG TAB PO SCH (09:00)
[2019-12-06] MEDS: ENOXAPARIN 40MG/0.4ML SYRINGE (J1650 PER 10MG) SC SCH (09:00)
[2019-12-06] MEDS: THIAMINE 100 MG TAB PO SCH ×3 (09:00→21:20)
[2019-12-06] MEDS: MULTIVITAMINS/MINERALS THERAP 1 TAB PO SCH (09:00)
[2019-12-07 06:00] VITALS: BP 149/67
[2019-12-07] MEDS: FOLIC ACID 1 MG TAB PO SCH ×2 (10:34→12:17)
[2019-12-07] MEDS: THIAMINE 100 MG TAB PO SCH ×3 (10:35→20:45)
[2019-12-07] MEDS: ENOXAPARIN 40MG/0.4ML SYRINGE (J1650 PER 10MG) SC SCH ×2 (10:35→12:20)
[2019-12-07] MEDS: MULTIVITAMINS/MINERALS THERAP 1 TAB PO SCH ×2 (10:35→12:17)
[2019-12-07] MEDS: CETIRIZINE (ZyrTEC) 10 MG TAB PO SCH ×2 (10:35→12:17)
[2019-12-07] MEDS ORDERED: CETIRIZINE (ZyrTEC) 10 MG TAB PO SCH (12:00)
[2019-12-07] MEDS: NYSTATIN 100,000 UNITS/GM TOPICAL PWD 15 GM TOP PRN (15:06)
[2019-12-08 06:00] VITALS: BP 111/78
[2019-12-08] MEDS: CETIRIZINE (ZyrTEC) 10 MG TAB PO SCH ×2 (11:47→13:49)
[2019-12-08] MEDS: MULTIVITAMINS/MINERALS THERAP 1 TAB PO SCH ×2 (11:47→13:49)
[2019-12-08] MEDS: THIAMINE 100 MG TAB PO SCH ×3 (11:47→19:51)
[2019-12-08] MEDS: FOLIC ACID 1 MG TAB PO SCH ×2 (11:47→13:49)
[2019-12-08] MEDS: ENOXAPARIN 40MG/0.4ML SYRINGE (J1650 PER 10MG) SC SCH ×2 (11:47→13:50)
--- NOTE | 2019-12-08 11:49 | IPNPDOC ---
Text Note Date of Service The patient was seen on 12/08/19. NOTE I saw the patient in the morning, patient was eating breakfast sitting comfortably in his bed. Patient refused to answer my questions, patient refused physical exam. Patient stated that he doesn't want to talk to Justino. rj VS,Timmy, I+O VS, Timmy, I+O Vital Signs Date Time Temp Pulse Resp B/P (MAP) Pulse Ox O2 Delivery O2 Flow Rate FiO2 12/08/19 06:00 98.0 74 18 111/78 (89) 98 Room Air I&O- Last 24 Hours up to 6 AM 12/08/19 06:00 Intake Total 2750 ml Output Total 1775 ml Balance 975 ml LONI LEWIS DO Dec 08, 2019 11:49
[2019-12-09 06:00] VITALS: BP 118/78
[2019-12-09] MEDS: CETIRIZINE (ZyrTEC) 10 MG TAB PO SCH (12:33)
[2019-12-09] MEDS: THIAMINE 100 MG TAB PO SCH ×2 (12:33→21:39)
[2019-12-09] MEDS: FOLIC ACID 1 MG TAB PO SCH (12:33)
[2019-12-09] MEDS: ENOXAPARIN 40MG/0.4ML SYRINGE (J1650 PER 10MG) SC SCH ×2 (12:33→12:34)
[2019-12-09] MEDS: MULTIVITAMINS/MINERALS THERAP 1 TAB PO SCH (12:33)
[2019-12-10 06:00] VITALS: BP 132/82
[2019-12-10] MEDS: FOLIC ACID 1 MG TAB PO SCH (15:16)
[2019-12-10] MEDS: CETIRIZINE (ZyrTEC) 10 MG TAB PO SCH (15:16)
[2019-12-10] MEDS: MULTIVITAMINS/MINERALS THERAP 1 TAB PO SCH (15:16)
[2019-12-10] MEDS: THIAMINE 100 MG TAB PO SCH ×3 (15:16→21:00)
[2019-12-10] MEDS: ENOXAPARIN 40MG/0.4ML SYRINGE (J1650 PER 10MG) SC SCH (15:17)
[2019-12-11 06:00] VITALS: BP 104/68
[2019-12-11] MEDS: FOLIC ACID 1 MG TAB PO SCH ×2 (11:55→12:00)
[2019-12-11] MEDS: MULTIVITAMINS/MINERALS THERAP 1 TAB PO SCH ×2 (11:55→12:00)
[2019-12-11] MEDS: THIAMINE 100 MG TAB PO SCH ×3 (11:56→21:01)
[2019-12-11] MEDS: ENOXAPARIN 40MG/0.4ML SYRINGE (J1650 PER 10MG) SC SCH ×2 (11:56→12:00)
[2019-12-11] MEDS: CETIRIZINE (ZyrTEC) 10 MG TAB PO SCH ×2 (11:56→12:00)
[2019-12-12 06:00] VITALS: BP 138/95
[2019-12-12] MEDS: CETIRIZINE (ZyrTEC) 10 MG TAB PO SCH (12:00)
[2019-12-12] MEDS: MULTIVITAMINS/MINERALS THERAP 1 TAB PO SCH (12:00)
[2019-12-12] MEDS: THIAMINE 100 MG TAB PO SCH ×3 (12:00→21:06)
[2019-12-12] MEDS: ENOXAPARIN 40MG/0.4ML SYRINGE (J1650 PER 10MG) SC SCH (12:00)
[2019-12-12] MEDS: FOLIC ACID 1 MG TAB PO SCH (12:00)
[2019-12-13] MEDS: MULTIVITAMINS/MINERALS THERAP 1 TAB PO SCH ×2 (12:00→16:49)
[2019-12-13] MEDS: THIAMINE 100 MG TAB PO SCH ×3 (12:00→20:28)
[2019-12-13] MEDS: ENOXAPARIN 40MG/0.4ML SYRINGE (J1650 PER 10MG) SC SCH ×2 (12:00→16:49)
[2019-12-13] MEDS: FOLIC ACID 1 MG TAB PO SCH ×2 (12:00→16:49)
[2019-12-13] MEDS: CETIRIZINE (ZyrTEC) 10 MG TAB PO SCH ×2 (12:00→16:49)
[2019-12-14 02:13] LABS: ALBUMIN 2.6 GM/DL (3.2-5.2); ALT/SGPT 49 U/L (12-78); BILIRUBIN,TOTAL 0.4 MG/DL (0.2-1.0); BLOOD UREA NITROGEN 19 MG/DL (7-18); CALCIUM LEVEL 8.6 MG/DL (8.5-10.1); CARBON DIOXIDE LEVEL 27 MEQ/L (21-32); CHLORIDE LEVEL 105 MEQ/L (98-107); CREATININE FOR GFR 0.79 MG/DL (0.70-1.30); GLOMERULAR FILTRATION RATE > 60.0 (>56); GLUCOSE, FASTING 94 MG/DL (70-100); MAGNESIUM LEVEL 1.8 MG/DL (1.8-2.4); POTASSIUM SERUM 4.3 MEQ/L (3.5-5.1); SODIUM LEVEL 139 MEQ/L (136-145); TOTAL PROTEIN 5.8 GM/DL (6.4-8.2)
[2019-12-14 06:00] VITALS: BP 128/78
[2019-12-14] MEDS: MULTIVITAMINS/MINERALS THERAP 1 TAB PO SCH (12:00)
[2019-12-14] MEDS: FOLIC ACID 1 MG TAB PO SCH (12:00)
[2019-12-14] MEDS: CETIRIZINE (ZyrTEC) 10 MG TAB PO SCH (12:00)
[2019-12-14] MEDS: ENOXAPARIN 40MG/0.4ML SYRINGE (J1650 PER 10MG) SC SCH (12:00)
[2019-12-14] MEDS: THIAMINE 100 MG TAB PO SCH ×2 (20:06→21:00)
[2019-12-15] MEDS: ENOXAPARIN 40MG/0.4ML SYRINGE (J1650 PER 10MG) SC SCH (11:46)
[2019-12-15] MEDS: THIAMINE 100 MG TAB PO SCH ×2 (11:46→20:42)
[2019-12-15] MEDS: MULTIVITAMINS/MINERALS THERAP 1 TAB PO SCH (11:46)
[2019-12-15] MEDS: CETIRIZINE (ZyrTEC) 10 MG TAB PO SCH (11:46)
[2019-12-15] MEDS: FOLIC ACID 1 MG TAB PO SCH (11:46)
--- NOTE | 2019-12-15 19:56 | IPNPDOC ---
Subjective Date Seen The patient was seen on 12/15/19. Subjective Chief Complaint/HPI Mr. Castillo is a 59 year old male with alcohol use disorder and hsitory of ICH 2/2 TBI 2/2 intoxication who is here after his friend found him covered in feces on 08/24/2019. He was seen singing on the phone with another person. In speaking with the nurse, he had reported interest in working with physical therapy. Otherwise, he was complaining about gas and being bloated. I offered simethicone, but he refused. Denies fever/chills, chest pain, abdominal pain, or dysuria. Objective Physical Examination General Exam: Positive: No Acute Distress Eye Exam: Positive: EOMI; Negative: Sclera icteric ENT Exam: Positive: Atraumatic Neck Exam: Positive: Supple Chest Exam: Positive: Clear to auscultation; Negative: Rales, Rhonchi, Wheezing Heart Exam: Positive: Rate Normal, Regular Rhythm Abdomen Exam: Positive: Normal bowel sounds, Soft; Negative: Tenderness Extremity Exam: Negative: Edema Assessment /Plan Assessment Mr. Castillo is a 59 year old male with alcohol use disorder and history of ICH 2/2 TBI 2/2 intoxication who is here after his friend found him covered in feces on 08/24/2019. He's here with encephalopathy and failure to thrive. Pending guardianship to be appointed by court. Plan/VTE VTE Prophylaxis Ordered?: Yes Plan 1. Dementia 2/2 to alcohol abuse and history of traumatic brain injury -Needs guardian to be appointed by court 2. Loose stools/bowel incontinence -Tells me he can hold his stool, but when he tries to release the gas, some st ool comes out with it. -He will need to use the bed side commode. -Reports that this has been going on for multiple months. Unlikely infectious cause 3. Hypomagnesemia 2/2 alcohol abuse -Last magnesium wnl -Stopped mag ox due to loose stools 4. Failure to thrive -Continue supplements -Will speak with team about PT/OT 5. DVT prophylaxis - Lovenox DISPOSITION: Remains in ALC status. Pending guardianship. VS, I&O, 24H, Fishbone Vital Signs/I&O Vital Signs Date Time Temp Pulse Resp B/P (MAP) Pulse Ox O2 Delivery O2 Flow Rate FiO2 12/14/19 06:00 98.1 70 17 128/78 (95) 98 Room Air I&O- Last 24 Hours up to 6 AM 12/15/19 06:00 Intake Total 990 ml Output Total 1050 ml Balance -60 ml DHEERAJ SAMS DO Dec 15, 2019 19:56
[2019-12-16 06:00] VITALS: BP 118/76
[2019-12-16] MEDS: MULTIVITAMINS/MINERALS THERAP 1 TAB PO SCH (12:00)
[2019-12-16] MEDS: CETIRIZINE (ZyrTEC) 10 MG TAB PO SCH (12:00)
[2019-12-16] MEDS: ENOXAPARIN 40MG/0.4ML SYRINGE (J1650 PER 10MG) SC SCH (12:00)
[2019-12-16] MEDS: FOLIC ACID 1 MG TAB PO SCH (12:00)
[2019-12-16] MEDS: THIAMINE 100 MG TAB PO SCH ×2 (12:00→20:53)
[2019-12-17 06:00] VITALS: BP 118/76
[2019-12-17] MEDS: CETIRIZINE (ZyrTEC) 10 MG TAB PO SCH (08:52)
[2019-12-17] MEDS: MULTIVITAMINS/MINERALS THERAP 1 TAB PO SCH (08:52)
[2019-12-17] MEDS: ENOXAPARIN 40MG/0.4ML SYRINGE (J1650 PER 10MG) SC SCH (08:53)
[2019-12-17] MEDS: FOLIC ACID 1 MG TAB PO SCH (08:53)
[2019-12-17] MEDS: THIAMINE 100 MG TAB PO SCH ×2 (08:53→22:11)
[2019-12-18 06:00] VITALS: BP 112/71
[2019-12-18] MEDS: CETIRIZINE (ZyrTEC) 10 MG TAB PO SCH (09:04)
[2019-12-18] MEDS: FOLIC ACID 1 MG TAB PO SCH (09:04)
[2019-12-18] MEDS: THIAMINE 100 MG TAB PO SCH ×2 (09:04→21:15)
[2019-12-18] MEDS: MULTIVITAMINS/MINERALS THERAP 1 TAB PO SCH (09:04)
[2019-12-18] MEDS: ENOXAPARIN 40MG/0.4ML SYRINGE (J1650 PER 10MG) SC SCH (09:05)
[2019-12-18] MEDS: FIBER-CON 625 MG TAB PO SCH (12:00)
[2019-12-19 06:00] VITALS: BP 111/72
[2019-12-19] MEDS: FIBER-CON 625 MG TAB PO SCH (10:01)
[2019-12-19] MEDS: THIAMINE 100 MG TAB PO SCH ×2 (11:41→21:32)
[2019-12-19] MEDS: CETIRIZINE (ZyrTEC) 10 MG TAB PO SCH (11:41)
[2019-12-19] MEDS: ENOXAPARIN 40MG/0.4ML SYRINGE (J1650 PER 10MG) SC SCH (11:41)
[2019-12-19] MEDS: FOLIC ACID 1 MG TAB PO SCH (11:42)
[2019-12-19] MEDS: MULTIVITAMINS/MINERALS THERAP 1 TAB PO SCH (11:42)
[2019-12-20 06:00] VITALS: BP 111/74
[2019-12-20] MEDS: FIBER-CON 625 MG TAB PO SCH (09:00)
[2019-12-20] MEDS: CETIRIZINE (ZyrTEC) 10 MG TAB PO SCH (11:56)
[2019-12-20] MEDS: FOLIC ACID 1 MG TAB PO SCH (11:56)
[2019-12-20] MEDS: THIAMINE 100 MG TAB PO SCH ×2 (11:56→20:18)
[2019-12-20] MEDS: MULTIVITAMINS/MINERALS THERAP 1 TAB PO SCH (11:56)
[2019-12-20] MEDS: ENOXAPARIN 40MG/0.4ML SYRINGE (J1650 PER 10MG) SC SCH (12:15)
[2019-12-21 06:00] VITALS: BP 118/78
[2019-12-21] MEDS: FIBER-CON 625 MG TAB PO SCH (08:17)
[2019-12-21] MEDS: FOLIC ACID 1 MG TAB PO SCH (14:36)
[2019-12-21] MEDS: MULTIVITAMINS/MINERALS THERAP 1 TAB PO SCH (14:36)
[2019-12-21] MEDS: ENOXAPARIN 40MG/0.4ML SYRINGE (J1650 PER 10MG) SC SCH (14:37)
[2019-12-21] MEDS: THIAMINE 100 MG TAB PO SCH ×2 (14:37→21:26)
[2019-12-21] MEDS: CETIRIZINE (ZyrTEC) 10 MG TAB PO SCH (14:37)
[2019-12-22] MEDS: FIBER-CON 625 MG TAB PO SCH (09:00)
[2019-12-22] MEDS: THIAMINE 100 MG TAB PO SCH ×2 (10:08→21:44)
[2019-12-22] MEDS: FOLIC ACID 1 MG TAB PO SCH (10:08)
[2019-12-22] MEDS: MULTIVITAMINS/MINERALS THERAP 1 TAB PO SCH (10:08)
[2019-12-22] MEDS: ENOXAPARIN 40MG/0.4ML SYRINGE (J1650 PER 10MG) SC SCH (10:09)
[2019-12-22] MEDS: CETIRIZINE (ZyrTEC) 10 MG TAB PO SCH (10:09)
--- NOTE | 2019-12-22 16:25 | IPNPDOC ---
Subjective Date Seen The patient was seen on 12/22/19. Subjective Chief Complaint/HPI Mr. Csatillo is a 59 year old male with alcohol use disorder and history of ICH 2/2 TBI 2/2 intoxication who is here after his friend found him covered in feces on 08/24/2019. In the morning, he was on the phone. I asked to see him, and he told me he was busy. I tried to see him again in the afternoon, and he told me to go away. Nurse says that he refused Fibercon because he was afraid it would make him constipated. Objective Physical Examination Other physical findings Patient refused evaluation Assessment /Plan Assessment Mr. Castillo is a 59 year old male with alcohol use disorder and history of ICH 2/2 TBI 2/2 intoxication who is here after his friend found him covered in feces on 08/24/2019. He's here with encephalopathy and failure to thrive. Pending guardianship to be appointed by court. Today, he refused evaluation Plan/VTE VTE Prophylaxis Ordered?: Yes Plan 1. Dementia 2/2 to alcohol abuse and history of traumatic brain injury -Needs guardian to be appointed by court 2. Loose stools/bowel incontinence -Tells me he can hold his stool, but when he tries to release the gas, some stool comes out with it. -He will need to use the bed side commode. -Reports that this has been going on for multiple months. Unlikely infectious cause -Recommended fiber supplements, but he refused due to fear of constipation 3. Hypomagnesemia 2/2 alcohol abuse -Last magnesium wnl -Stopped mag ox due to loose stools 4. Failure to thrive -Continue supplements -Will speak with team about PT/OT 5. DVT prophylaxis - Lovenox DISPOSITION: Remains in ALC status. Pending guardianship. VS, I&O, 24H, Fishbone Vital Signs/I&O Vital Signs Date Time Temp Pulse Resp B/P (MAP) Pulse Ox O2 Delivery O2 Flow Rate FiO2 12/21/19 06:00 98.0 84 16 118/78 (91) 93 Room Air I&O- Last 24 Hours up to 6 AM 12/22/19 06:00 Intake Total 720 ml Output Total 1650 ml Balance -930 ml DHEERAJ SAMS DO Dec 22, 2019 16:25
[2019-12-23 06:00] VITALS: BP 133/83
[2019-12-23] MEDS: FIBER-CON 625 MG TAB PO SCH (09:00)
[2019-12-23] MEDS: CETIRIZINE (ZyrTEC) 10 MG TAB PO SCH (11:48)
[2019-12-23] MEDS: FOLIC ACID 1 MG TAB PO SCH (11:48)
[2019-12-23] MEDS: ENOXAPARIN 40MG/0.4ML SYRINGE (J1650 PER 10MG) SC SCH (11:48)
[2019-12-23] MEDS: THIAMINE 100 MG TAB PO SCH ×2 (11:49→22:17)
[2019-12-23] MEDS: MULTIVITAMINS/MINERALS THERAP 1 TAB PO SCH (11:49)
[2019-12-24 06:00] VITALS: BP 102/65
[2019-12-24] MEDS: FIBER-CON 625 MG TAB PO SCH (09:00)
[2019-12-24] MEDS: ENOXAPARIN 40MG/0.4ML SYRINGE (J1650 PER 10MG) SC SCH (13:17)
[2019-12-24] MEDS: FOLIC ACID 1 MG TAB PO SCH (13:18)
[2019-12-24] MEDS: THIAMINE 100 MG TAB PO SCH ×2 (13:18→20:35)
[2019-12-24] MEDS: CETIRIZINE (ZyrTEC) 10 MG TAB PO SCH (13:18)
[2019-12-24] MEDS: MULTIVITAMINS/MINERALS THERAP 1 TAB PO SCH (13:18)
[2019-12-25 06:00] VITALS: BP 128/70
[2019-12-25] MEDS: FIBER-CON 625 MG TAB PO SCH (09:00)
[2019-12-25] MEDS: NYSTATIN 100,000 UNITS/GM TOPICAL PWD 15 GM TOP SCH ×2 (13:10→21:47)
[2019-12-25] MEDS: MULTIVITAMINS/MINERALS THERAP 1 TAB PO SCH (13:10)
[2019-12-25] MEDS: CETIRIZINE (ZyrTEC) 10 MG TAB PO SCH (13:10)
[2019-12-25] MEDS: FOLIC ACID 1 MG TAB PO SCH (13:10)
[2019-12-25] MEDS: THIAMINE 100 MG TAB PO SCH ×2 (13:11→21:46)
[2019-12-25] MEDS: ENOXAPARIN 40MG/0.4ML SYRINGE (J1650 PER 10MG) SC SCH (13:11)
[2019-12-26 06:00] VITALS: BP 115/79
[2019-12-26] MEDS: NYSTATIN 100,000 UNITS/GM TOPICAL PWD 15 GM TOP SCH ×2 (09:00→20:03)
[2019-12-26] MEDS: FIBER-CON 625 MG TAB PO SCH (09:00)
[2019-12-26] MEDS: FOLIC ACID 1 MG TAB PO SCH (12:00)
[2019-12-26] MEDS: ENOXAPARIN 40MG/0.4ML SYRINGE (J1650 PER 10MG) SC SCH (12:00)
[2019-12-26] MEDS: THIAMINE 100 MG TAB PO SCH ×2 (12:00→20:03)
[2019-12-26] MEDS: MULTIVITAMINS/MINERALS THERAP 1 TAB PO SCH (12:00)
[2019-12-26] MEDS: CETIRIZINE (ZyrTEC) 10 MG TAB PO SCH (12:00)
[2019-12-27 06:00] VITALS: BP 122/86
[2019-12-27] MEDS: FIBER-CON 625 MG TAB PO SCH (09:00)
[2019-12-27] MEDS: THIAMINE 100 MG TAB PO SCH ×2 (09:32→21:00)
[2019-12-27] MEDS: CETIRIZINE (ZyrTEC) 10 MG TAB PO SCH (09:33)
[2019-12-27] MEDS: FOLIC ACID 1 MG TAB PO SCH (09:33)
[2019-12-27] MEDS: MULTIVITAMINS/MINERALS THERAP 1 TAB PO SCH (09:33)
[2019-12-27] MEDS: ENOXAPARIN 40MG/0.4ML SYRINGE (J1650 PER 10MG) SC SCH (09:34)
[2019-12-27] MEDS: NYSTATIN 100,000 UNITS/GM TOPICAL PWD 15 GM TOP SCH ×2 (09:34→21:00)
[2019-12-28 06:00] VITALS: BP 122/62
[2019-12-28] MEDS: FIBER-CON 625 MG TAB PO SCH (09:00)
[2019-12-28] MEDS: THIAMINE 100 MG TAB PO SCH ×2 (11:16→20:58)
[2019-12-28] MEDS: NYSTATIN 100,000 UNITS/GM TOPICAL PWD 15 GM TOP SCH ×2 (11:16→20:59)
[2019-12-28] MEDS: MULTIVITAMINS/MINERALS THERAP 1 TAB PO SCH (11:16)
[2019-12-28] MEDS: ENOXAPARIN 40MG/0.4ML SYRINGE (J1650 PER 10MG) SC SCH (11:17)
[2019-12-28] MEDS: CETIRIZINE (ZyrTEC) 10 MG TAB PO SCH (11:17)
[2019-12-28] MEDS: FOLIC ACID 1 MG TAB PO SCH (11:17)
[2019-12-29 06:00] VITALS: BP 122/82
[2019-12-29] MEDS: FIBER-CON 625 MG TAB PO SCH (09:00)
[2019-12-29] MEDS: THIAMINE 100 MG TAB PO SCH ×2 (10:42→20:00)
[2019-12-29] MEDS: NYSTATIN 100,000 UNITS/GM TOPICAL PWD 15 GM TOP SCH ×2 (10:43→20:01)
[2019-12-29] MEDS: MULTIVITAMINS/MINERALS THERAP 1 TAB PO SCH (10:43)
[2019-12-29] MEDS: CETIRIZINE (ZyrTEC) 10 MG TAB PO SCH (10:43)
[2019-12-29] MEDS: FOLIC ACID 1 MG TAB PO SCH (10:43)
[2019-12-29] MEDS: ENOXAPARIN 40MG/0.4ML SYRINGE (J1650 PER 10MG) SC SCH (10:44)
[2019-12-30 06:00] VITALS: BP 121/84
[2019-12-30] MEDS: NYSTATIN 100,000 UNITS/GM TOPICAL PWD 15 GM TOP SCH ×3 (09:00→20:43)
[2019-12-30] MEDS: FIBER-CON 625 MG TAB PO SCH (09:00)
[2019-12-30] MEDS: THIAMINE 100 MG TAB PO SCH ×3 (10:19→20:42)
[2019-12-30] MEDS: FOLIC ACID 1 MG TAB PO SCH ×2 (10:20→12:00)
[2019-12-30] MEDS: CETIRIZINE (ZyrTEC) 10 MG TAB PO SCH ×2 (10:20→12:00)
[2019-12-30] MEDS: ENOXAPARIN 40MG/0.4ML SYRINGE (J1650 PER 10MG) SC SCH ×2 (10:20→12:00)
[2019-12-30] MEDS: MULTIVITAMINS/MINERALS THERAP 1 TAB PO SCH ×2 (10:20→12:00)
[2019-12-31 06:00] VITALS: BP 118/83
[2019-12-31] MEDS: NYSTATIN 100,000 UNITS/GM TOPICAL PWD 15 GM TOP SCH ×2 (09:00→22:36)
[2019-12-31] MEDS: FIBER-CON 625 MG TAB PO SCH (09:00)
[2019-12-31] MEDS: CETIRIZINE (ZyrTEC) 10 MG TAB PO SCH ×2 (12:00→15:23)
[2019-12-31] MEDS: THIAMINE 100 MG TAB PO SCH ×4 (12:00→22:38)
[2019-12-31] MEDS: FOLIC ACID 1 MG TAB PO SCH ×2 (12:00→15:23)
[2019-12-31] MEDS: MULTIVITAMINS/MINERALS THERAP 1 TAB PO SCH ×2 (12:00→15:23)
[2019-12-31] MEDS: ENOXAPARIN 40MG/0.4ML SYRINGE (J1650 PER 10MG) SC SCH ×2 (12:00→15:23)
[2020-01-01] MEDS: FIBER-CON 625 MG TAB PO SCH (09:00)
--- NOTE | 2020-01-01 10:52 | IPNPDOC ---
Date Seen The patient was seen on 01/01/20. Progress Note SUBJECTIVE: no c/o. Pt sometimes refuses medications . OBJECTIVE: PHYSICAL EXAMINATION: VITAL SIGNS see below. GEN: lying on left lateral decubitus position asleep but arousable. no respiratory distress LUNGS: CTAB Heart: S1S2 RRR ABD: scaphoid. soft nt nd EXT: no edema LABORATORY DATA: refused ASSESSMENT AND PLAN: This is a 59-year-old male awaiting placement. History of alcohol abuse. IMPRESSION: 1. Failure to thrive. 2. Chronic encephalopathy with cerebellar atrophy. 3. Hypokalemia. 4. Alcohol dependence. 5. Alcoholic liver disease. 6. Alcoholic hepatitis. 7. History of intracranial hemorrhage with traumatic brain injury from alc oholintoxication. 8. Encephalomalacia. PLAN: Await placement. continue present mgt. VS, I&O, 24H, Fishbone Vital Signs/I&O Vital Signs Date Time Temp Pulse Resp B/P (MAP) Pulse Ox O2 Delivery O2 Flow Rate FiO2 12/31/19 06:00 98.2 75 16 118/83 (95) 96 Room Air I&O- Last 24 Hours up to 6 AM 01/01/20 06:00 Intake Total 2350 ml Output Total 1270 ml Balance 1080 ml FABIAN LEA MD Jan 01, 2020 08:52
[2020-01-01] MEDS: NYSTATIN 100,000 UNITS/GM TOPICAL PWD 15 GM TOP SCH ×2 (10:55→21:52)
[2020-01-01] MEDS: THIAMINE 100 MG TAB PO SCH ×2 (11:57→21:51)
[2020-01-01] MEDS: FOLIC ACID 1 MG TAB PO SCH (11:57)
[2020-01-01] MEDS: MULTIVITAMINS/MINERALS THERAP 1 TAB PO SCH (11:57)
[2020-01-01] MEDS: CETIRIZINE (ZyrTEC) 10 MG TAB PO SCH (11:58)
[2020-01-01] MEDS: ENOXAPARIN 40MG/0.4ML SYRINGE (J1650 PER 10MG) SC SCH (11:58)
[2020-01-01] MEDS ORDERED: FLUBLOK(EGG FREE)(QUAD)INFLUENZA VACC 0.5ML SYRINGE 18YRS & OLDER IM ONE (13:15)
[2020-01-02 06:00] VITALS: BP 113/85
[2020-01-02] MEDS: FIBER-CON 625 MG TAB PO SCH ×2 (09:00→09:28)
[2020-01-02] MEDS: NYSTATIN 100,000 UNITS/GM TOPICAL PWD 15 GM TOP SCH ×2 (09:28→20:27)
[2020-01-02] MEDS: THIAMINE 100 MG TAB PO SCH ×2 (12:00→20:27)
[2020-01-02] MEDS: ENOXAPARIN 40MG/0.4ML SYRINGE (J1650 PER 10MG) SC SCH (12:00)
[2020-01-02] MEDS: MULTIVITAMINS/MINERALS THERAP 1 TAB PO SCH (12:00)
[2020-01-02] MEDS: FOLIC ACID 1 MG TAB PO SCH (12:00)
[2020-01-02] MEDS: CETIRIZINE (ZyrTEC) 10 MG TAB PO SCH (12:00)
[2020-01-03 06:00] VITALS: BP 135/94
[2020-01-03] MEDS: FIBER-CON 625 MG TAB PO SCH (09:00)
[2020-01-03] MEDS: CETIRIZINE (ZyrTEC) 10 MG TAB PO SCH (09:20)
[2020-01-03] MEDS: FOLIC ACID 1 MG TAB PO SCH (09:20)
[2020-01-03] MEDS: MULTIVITAMINS/MINERALS THERAP 1 TAB PO SCH (09:20)
[2020-01-03] MEDS: ENOXAPARIN 40MG/0.4ML SYRINGE (J1650 PER 10MG) SC SCH (09:20)
[2020-01-03] MEDS: THIAMINE 100 MG TAB PO SCH ×2 (09:20→21:00)
[2020-01-03] MEDS: NYSTATIN 100,000 UNITS/GM TOPICAL PWD 15 GM TOP SCH ×2 (09:21→21:00)
[2020-01-04] MEDS: FIBER-CON 625 MG TAB PO SCH (09:00)
[2020-01-04] MEDS: CETIRIZINE (ZyrTEC) 10 MG TAB PO SCH (16:21)
[2020-01-04] MEDS: MULTIVITAMINS/MINERALS THERAP 1 TAB PO SCH (16:21)
[2020-01-04] MEDS: FOLIC ACID 1 MG TAB PO SCH (16:21)
[2020-01-04] MEDS: THIAMINE 100 MG TAB PO SCH ×2 (16:21→21:00)
[2020-01-04] MEDS: NYSTATIN 100,000 UNITS/GM TOPICAL PWD 15 GM TOP SCH ×2 (16:22→21:00)
[2020-01-04] MEDS: ENOXAPARIN 40MG/0.4ML SYRINGE (J1650 PER 10MG) SC SCH (16:23)
[2020-01-05 06:00] VITALS: BP 133/92
[2020-01-05] MEDS: FIBER-CON 625 MG TAB PO SCH (09:00)
[2020-01-05] MEDS: MULTIVITAMINS/MINERALS THERAP 1 TAB PO SCH (13:31)
[2020-01-05] MEDS: NYSTATIN 100,000 UNITS/GM TOPICAL PWD 15 GM TOP SCH ×2 (13:31→20:57)
[2020-01-05] MEDS: FOLIC ACID 1 MG TAB PO SCH (13:31)
[2020-01-05] MEDS: CETIRIZINE (ZyrTEC) 10 MG TAB PO SCH (13:31)
[2020-01-05] MEDS: THIAMINE 100 MG TAB PO SCH ×2 (13:31→20:57)
[2020-01-05] MEDS: ENOXAPARIN 40MG/0.4ML SYRINGE (J1650 PER 10MG) SC SCH (13:32)
[2020-01-06 07:09] VITALS: BP 123/87
[2020-01-06] MEDS: FIBER-CON 625 MG TAB PO SCH (08:39)
[2020-01-06] MEDS: NYSTATIN 100,000 UNITS/GM TOPICAL PWD 15 GM TOP SCH ×3 (08:39→21:00)
[2020-01-06] MEDS: CETIRIZINE (ZyrTEC) 10 MG TAB PO SCH (11:46)
[2020-01-06] MEDS: THIAMINE 100 MG TAB PO SCH ×2 (11:46→21:00)
[2020-01-06] MEDS: FOLIC ACID 1 MG TAB PO SCH (11:46)
[2020-01-06] MEDS: MULTIVITAMINS/MINERALS THERAP 1 TAB PO SCH (11:46)
[2020-01-06] MEDS: ENOXAPARIN 40MG/0.4ML SYRINGE (J1650 PER 10MG) SC SCH (11:47)
[2020-01-07 06:00] VITALS: BP 120/88
[2020-01-07] MEDS: FIBER-CON 625 MG TAB PO SCH ×2 (09:00→09:45)
[2020-01-07] MEDS: NYSTATIN 100,000 UNITS/GM TOPICAL PWD 15 GM TOP SCH ×2 (09:46→20:08)
[2020-01-07] MEDS: THIAMINE 100 MG TAB PO SCH ×2 (12:18→20:08)
[2020-01-07] MEDS: FOLIC ACID 1 MG TAB PO SCH (12:18)
[2020-01-07] MEDS: MULTIVITAMINS/MINERALS THERAP 1 TAB PO SCH (12:18)
[2020-01-07] MEDS: ENOXAPARIN 40MG/0.4ML SYRINGE (J1650 PER 10MG) SC SCH (12:19)
[2020-01-07] MEDS: CETIRIZINE (ZyrTEC) 10 MG TAB PO SCH (12:19)
[2020-01-08 06:00] VITALS: BP 128/90
[2020-01-08] MEDS: FIBER-CON 625 MG TAB PO SCH (09:00)
[2020-01-08] MEDS: NYSTATIN 100,000 UNITS/GM TOPICAL PWD 15 GM TOP SCH ×2 (09:35→21:00)
[2020-01-08] MEDS: MULTIVITAMINS/MINERALS THERAP 1 TAB PO SCH ×2 (12:00→12:30)
[2020-01-08] MEDS: FOLIC ACID 1 MG TAB PO SCH ×2 (12:00→12:30)
[2020-01-08] MEDS: CETIRIZINE (ZyrTEC) 10 MG TAB PO SCH ×2 (12:00→12:30)
[2020-01-08] MEDS: ENOXAPARIN 40MG/0.4ML SYRINGE (J1650 PER 10MG) SC SCH ×2 (12:00→12:30)
[2020-01-08] MEDS: THIAMINE 100 MG TAB PO SCH ×2 (12:30→21:00)
[2020-01-09 06:00] VITALS: BP 124/88
[2020-01-09] MEDS: FIBER-CON 625 MG TAB PO SCH (09:00)
[2020-01-09] MEDS: NYSTATIN 100,000 UNITS/GM TOPICAL PWD 15 GM TOP SCH ×2 (09:00→20:00)
--- NOTE | 2020-01-09 11:16 | IPNPDOC ---
Date Seen The patient was seen on 01/09/20. Progress Note SUBJECTIVE: refuses to answer ROS. Per RN, no new issues. OBJECTIVE: PHYSICAL EXAMINATION: VITAL SIGNS see below. GEN: no distress. sitting in bed at 45 degrees LUNGS: CTAB Heart: S1S2 RRR ABD:soft nt nd EXT: no edema LABORATORY DATA: refused ASSESSMENT AND PLAN: This is a 59-year-old male awaiting placement. History of alcohol abuse. IMPRESSION: 1. Failure to thrive. 2. Chronic encephalopathy with cerebellar atrophy. 3. Hypokalemia. 4. Alcohol dependence. 5. Alcoholic liver disease. 6. Alcoholic hepatitis. 7. History of intracranial hemorrhage with traumatic brain injury from alcoholintoxication. 8. Encephalomalacia. PLAN: Await placement. continue present mgt. VS, I&O, 24H, Fishbone Vital Signs/I&O Vital Signs Date Time Temp Pulse Resp B/P (MAP) Pulse Ox O2 Delivery O2 Flow Rate FiO2 01/09/20 06:00 97.5 95 16 124/88 (100) 94 Room Air I&O- Last 24 Hours up to 6 AM 01/09/20 06:00 Intake Total 1510 ml Output Total 1125 ml Balance 385 ml FABIAN LEA MD Jan 09, 2020 11:16
[2020-01-09] MEDS: THIAMINE 100 MG TAB PO SCH ×2 (13:07→20:00)
[2020-01-09] MEDS: MULTIVITAMINS/MINERALS THERAP 1 TAB PO SCH (13:07)
[2020-01-09] MEDS: FOLIC ACID 1 MG TAB PO SCH (13:07)
[2020-01-09] MEDS: CETIRIZINE (ZyrTEC) 10 MG TAB PO SCH (13:07)
[2020-01-09] MEDS: ENOXAPARIN 40MG/0.4ML SYRINGE (J1650 PER 10MG) SC SCH (13:08)
[2020-01-10 06:00] VITALS: BP 116/80
[2020-01-10] MEDS: FIBER-CON 625 MG TAB PO SCH ×2 (10:58→11:11)
[2020-01-10] MEDS: THIAMINE 100 MG TAB PO SCH ×2 (10:58→20:45)
[2020-01-10] MEDS: CETIRIZINE (ZyrTEC) 10 MG TAB PO SCH (10:59)
[2020-01-10] MEDS: FOLIC ACID 1 MG TAB PO SCH (10:59)
[2020-01-10] MEDS: ENOXAPARIN 40MG/0.4ML SYRINGE (J1650 PER 10MG) SC SCH (10:59)
[2020-01-10] MEDS: MULTIVITAMINS/MINERALS THERAP 1 TAB PO SCH (10:59)
[2020-01-10] MEDS: NYSTATIN 100,000 UNITS/GM TOPICAL PWD 15 GM TOP SCH ×2 (11:11→20:45)
[2020-01-11 06:00] VITALS: BP 120/81
[2020-01-11] MEDS: NYSTATIN 100,000 UNITS/GM TOPICAL PWD 15 GM TOP SCH ×2 (09:00→20:21)
[2020-01-11] MEDS: FIBER-CON 625 MG TAB PO SCH (09:00)
[2020-01-11] MEDS: MULTIVITAMINS/MINERALS THERAP 1 TAB PO SCH (15:30)
[2020-01-11] MEDS: THIAMINE 100 MG TAB PO SCH ×2 (15:30→20:20)
[2020-01-11] MEDS: CETIRIZINE (ZyrTEC) 10 MG TAB PO SCH (15:30)
[2020-01-11] MEDS: FOLIC ACID 1 MG TAB PO SCH (15:30)
[2020-01-11] MEDS: ENOXAPARIN 40MG/0.4ML SYRINGE (J1650 PER 10MG) SC SCH (15:31)
[2020-01-12 06:00] VITALS: BP 135/84
[2020-01-12] MEDS: FIBER-CON 625 MG TAB PO SCH (09:00)
[2020-01-12] MEDS: MULTIVITAMINS/MINERALS THERAP 1 TAB PO SCH (12:15)
[2020-01-12] MEDS: THIAMINE 100 MG TAB PO SCH ×2 (12:16→21:00)
[2020-01-12] MEDS: CETIRIZINE (ZyrTEC) 10 MG TAB PO SCH (12:16)
[2020-01-12] MEDS: FOLIC ACID 1 MG TAB PO SCH (12:16)
[2020-01-12] MEDS: ENOXAPARIN 40MG/0.4ML SYRINGE (J1650 PER 10MG) SC SCH (12:17)
[2020-01-12] MEDS: NYSTATIN 100,000 UNITS/GM TOPICAL PWD 15 GM TOP SCH ×2 (12:30→21:00)
[2020-01-13 06:00] VITALS: BP 120/77
[2020-01-13] MEDS: FIBER-CON 625 MG TAB PO SCH ×2 (07:54→07:58)
[2020-01-13] MEDS: NYSTATIN 100,000 UNITS/GM TOPICAL PWD 15 GM TOP SCH ×2 (07:57→21:30)
[2020-01-13] MEDS: THIAMINE 100 MG TAB PO SCH ×2 (13:04→21:29)
[2020-01-13] MEDS: CETIRIZINE (ZyrTEC) 10 MG TAB PO SCH (13:04)
[2020-01-13] MEDS: FOLIC ACID 1 MG TAB PO SCH (13:04)
[2020-01-13] MEDS: ENOXAPARIN 40MG/0.4ML SYRINGE (J1650 PER 10MG) SC SCH (13:05)
[2020-01-13] MEDS: MULTIVITAMINS/MINERALS THERAP 1 TAB PO SCH (13:05)
[2020-01-14 06:00] VITALS: BP 119/78
[2020-01-14] MEDS: FIBER-CON 625 MG TAB PO SCH (09:00)
[2020-01-14] MEDS: NYSTATIN 100,000 UNITS/GM TOPICAL PWD 15 GM TOP SCH (09:00)
[2020-01-14] MEDS: FOLIC ACID 1 MG TAB PO SCH (12:37)
[2020-01-14] MEDS: ENOXAPARIN 40MG/0.4ML SYRINGE (J1650 PER 10MG) SC SCH (12:37)
[2020-01-14] MEDS: THIAMINE 100 MG TAB PO SCH (12:37)
[2020-01-14] MEDS: CETIRIZINE (ZyrTEC) 10 MG TAB PO SCH (12:37)
[2020-01-14] MEDS: MULTIVITAMINS/MINERALS THERAP 1 TAB PO SCH (12:37)
[2020-01-15] MEDS: THIAMINE 100 MG TAB PO SCH ×3 (01:55→21:00)
[2020-01-15] MEDS: NYSTATIN 100,000 UNITS/GM TOPICAL PWD 15 GM TOP SCH ×3 (01:56→21:00)
[2020-01-15 06:00] VITALS: BP 120/76
[2020-01-15] MEDS: FIBER-CON 625 MG TAB PO SCH (08:44)
[2020-01-15] MEDS: ENOXAPARIN 40MG/0.4ML SYRINGE (J1650 PER 10MG) SC SCH (12:13)
[2020-01-15] MEDS: CETIRIZINE (ZyrTEC) 10 MG TAB PO SCH (12:13)
[2020-01-15] MEDS: MULTIVITAMINS/MINERALS THERAP 1 TAB PO SCH (12:13)
[2020-01-15] MEDS: FOLIC ACID 1 MG TAB PO SCH (12:14)
[2020-01-16 06:00] VITALS: BP 117/79
[2020-01-16] MEDS: FIBER-CON 625 MG TAB PO SCH (09:00)
[2020-01-16] MEDS: MULTIVITAMINS/MINERALS THERAP 1 TAB PO SCH (11:36)
[2020-01-16] MEDS: THIAMINE 100 MG TAB PO SCH ×3 (11:37→20:25)
[2020-01-16] MEDS: CETIRIZINE (ZyrTEC) 10 MG TAB PO SCH (11:37)
[2020-01-16] MEDS: FOLIC ACID 1 MG TAB PO SCH (11:37)
[2020-01-16] MEDS: ENOXAPARIN 40MG/0.4ML SYRINGE (J1650 PER 10MG) SC SCH (11:37)
[2020-01-16] MEDS: NYSTATIN 100,000 UNITS/GM TOPICAL PWD 15 GM TOP SCH ×3 (11:38→20:25)
--- NOTE | 2020-01-16 11:40 | IPNPDOC ---
Subjective Date Seen The patient was seen on 01/16/20. Subjective Chief Complaint/HPI Mr. Castillo is a 59 year old male with alcohol use disorder and history of ICH 2/2 TBI 2/2 intoxication who is here after his friend found him covered in feces on 08/24/2019. Nurses said he was in a good mood the past 3 days. I went to go see him today. He refused to speak with me. Unable to perform physical exam due to refusal. Objective Physical Examination Other physical findings Unable to perform due to refusal Assessment /Plan Assessment Mr. Castillo is a 59 year old male with alcohol use disorder and history of ICH 2/2 TBI 2/2 intoxication who is here after his friend found him covered in feces on 08/24/2019. He's here with encephalopathy and failure to thrive. Pending guardianship to be appointed by court. Today, he refused evaluation Plan/VTE VTE Prophylaxis Ordered?: Yes Plan 1. Dementia 2/2 to alcohol abuse and history of traumatic brain injury -Needs guardian to be appointed by court 2. Loose stools/bowel incontinence -Tells me he can hold his stool, but when he tries to release the gas, some stool comes out with it. -He will need to use the bed side commode. -Reports that this has been going on for multiple months. Unlikely infectious cause -Recommended fiber supplements, but he refused due to fear of constipation 3. Hypomagnesemia 2/2 alcohol abuse -Last magnesium wnl -Stopped mag ox due to loose stools 4. Failure to thrive -Continue supplements -He has refused to see PT/OT multiple times 5. DVT prophylaxis - Lovenox DISPOSITION: Remains in ALC status. Pending guardianship. VS, I&O, 24H, Fishbone Vital Signs/I&O Vital Signs Date Time Temp Pulse Resp B/P (MAP) Pulse Ox O2 Delivery O2 Flow Rate FiO2 01/16/20 06:00 98.0 76 18 117/79 (92) 98 01/11/20 06:00 Room Air I&O- Last 24 Hours up to 6 AM 01/16/20 06:00 Intake Total 2009 ml Output Total 1125 ml Balance 885 ml DHEERAJ SAMS DO Jan 16, 2020 11:40
[2020-01-17 06:00] VITALS: BP 122/77
[2020-01-17] MEDS: FIBER-CON 625 MG TAB PO SCH (09:00)
[2020-01-17] MEDS: THIAMINE 100 MG TAB PO SCH ×2 (12:13→21:03)
[2020-01-17] MEDS: CETIRIZINE (ZyrTEC) 10 MG TAB PO SCH (12:13)
[2020-01-17] MEDS: FOLIC ACID 1 MG TAB PO SCH (12:13)
[2020-01-17] MEDS: NYSTATIN 100,000 UNITS/GM TOPICAL PWD 15 GM TOP SCH ×2 (12:13→21:04)
[2020-01-17] MEDS: MULTIVITAMINS/MINERALS THERAP 1 TAB PO SCH (12:14)
[2020-01-17] MEDS: ENOXAPARIN 40MG/0.4ML SYRINGE (J1650 PER 10MG) SC SCH (12:14)
[2020-01-18 06:00] VITALS: BP 122/74
[2020-01-18] MEDS: FIBER-CON 625 MG TAB PO SCH (08:16)
[2020-01-18] MEDS: NYSTATIN 100,000 UNITS/GM TOPICAL PWD 15 GM TOP SCH ×2 (09:00→20:10)
[2020-01-18] MEDS: THIAMINE 100 MG TAB PO SCH ×3 (12:00→20:09)
[2020-01-18] MEDS: CETIRIZINE (ZyrTEC) 10 MG TAB PO SCH ×2 (12:00→12:23)
[2020-01-18] MEDS: MULTIVITAMINS/MINERALS THERAP 1 TAB PO SCH ×2 (12:00→12:24)
[2020-01-18] MEDS: ENOXAPARIN 40MG/0.4ML SYRINGE (J1650 PER 10MG) SC SCH ×3 (12:00→20:45)
[2020-01-18] MEDS: FOLIC ACID 1 MG TAB PO SCH ×2 (12:00→12:23)
[2020-01-19 06:00] VITALS: BP 108/78
[2020-01-19] MEDS: NYSTATIN 100,000 UNITS/GM TOPICAL PWD 15 GM TOP SCH ×2 (09:00→20:06)
[2020-01-19] MEDS: FIBER-CON 625 MG TAB PO SCH (09:00)
[2020-01-19] MEDS: THIAMINE 100 MG TAB PO SCH ×2 (13:39→20:05)
[2020-01-19] MEDS: FOLIC ACID 1 MG TAB PO SCH (13:40)
[2020-01-19] MEDS: MULTIVITAMINS/MINERALS THERAP 1 TAB PO SCH (13:40)
[2020-01-19] MEDS: CETIRIZINE (ZyrTEC) 10 MG TAB PO SCH (13:40)
[2020-01-19] MEDS: ENOXAPARIN 40MG/0.4ML SYRINGE (J1650 PER 10MG) SC SCH (13:40)
[2020-01-20 06:00] VITALS: BP 108/78
[2020-01-20] MEDS: FIBER-CON 625 MG TAB PO SCH (09:00)
[2020-01-20] MEDS: MULTIVITAMINS/MINERALS THERAP 1 TAB PO SCH (12:55)
[2020-01-20] MEDS: FOLIC ACID 1 MG TAB PO SCH (12:55)
[2020-01-20] MEDS: THIAMINE 100 MG TAB PO SCH ×2 (12:56→21:41)
[2020-01-20] MEDS: ENOXAPARIN 40MG/0.4ML SYRINGE (J1650 PER 10MG) SC SCH (12:56)
[2020-01-20] MEDS: CETIRIZINE (ZyrTEC) 10 MG TAB PO SCH (12:56)
[2020-01-20] MEDS: NYSTATIN 100,000 UNITS/GM TOPICAL PWD 15 GM TOP SCH ×2 (12:57→21:42)
[2020-01-21 06:00] VITALS: BP 106/73
[2020-01-21] MEDS: FIBER-CON 625 MG TAB PO SCH (09:00)
[2020-01-21] MEDS: CETIRIZINE (ZyrTEC) 10 MG TAB PO SCH (13:02)
[2020-01-21] MEDS: MULTIVITAMINS/MINERALS THERAP 1 TAB PO SCH (13:02)
[2020-01-21] MEDS: NYSTATIN 100,000 UNITS/GM TOPICAL PWD 15 GM TOP SCH ×2 (13:02→21:52)
[2020-01-21] MEDS: FOLIC ACID 1 MG TAB PO SCH (13:02)
[2020-01-21] MEDS: THIAMINE 100 MG TAB PO SCH ×2 (13:03→21:51)
[2020-01-21] MEDS: ENOXAPARIN 40MG/0.4ML SYRINGE (J1650 PER 10MG) SC SCH (13:03)
[2020-01-22] MEDS: FIBER-CON 625 MG TAB PO SCH (09:00)
[2020-01-22] MEDS: NYSTATIN 100,000 UNITS/GM TOPICAL PWD 15 GM TOP SCH ×2 (13:12→21:41)
[2020-01-22] MEDS: MULTIVITAMINS/MINERALS THERAP 1 TAB PO SCH (13:13)
[2020-01-22] MEDS: FOLIC ACID 1 MG TAB PO SCH (13:13)
[2020-01-22] MEDS: CETIRIZINE (ZyrTEC) 10 MG TAB PO SCH (13:13)
[2020-01-22] MEDS: THIAMINE 100 MG TAB PO SCH ×2 (13:13→21:40)
[2020-01-22] MEDS: ENOXAPARIN 40MG/0.4ML SYRINGE (J1650 PER 10MG) SC SCH (13:13)
[2020-01-23] MEDS: FIBER-CON 625 MG TAB PO SCH (09:00)
[2020-01-23] MEDS: NYSTATIN 100,000 UNITS/GM TOPICAL PWD 15 GM TOP SCH ×2 (09:00→20:19)
[2020-01-23] MEDS: THIAMINE 100 MG TAB PO SCH ×2 (12:57→20:19)
[2020-01-23] MEDS: FOLIC ACID 1 MG TAB PO SCH (12:57)
[2020-01-23] MEDS: MULTIVITAMINS/MINERALS THERAP 1 TAB PO SCH (12:57)
[2020-01-23] MEDS: CETIRIZINE (ZyrTEC) 10 MG TAB PO SCH (12:57)
[2020-01-23] MEDS: ENOXAPARIN 40MG/0.4ML SYRINGE (J1650 PER 10MG) SC SCH (12:57)
--- NOTE | 2020-01-23 17:58 | IPNPDOC ---
Text Note Date of Service The patient was seen on 01/23/20. NOTE Subjective: Patient seen at bedside. No acute overnight events reported. No new medical complaints. Patient not interested in discussion. Objective: Refused physical examination A/P: 59M with alcohol use disorder and history of ICH 2/2 TBI 2/2 intoxication , admitted after his friend found him covered in feces on 08/24/2019. He's here with encephalopathy and failure to thrive , and pending guardianship to be appointed by court. #Dementia 2/2 to alcohol abuse and history of traumatic brain injury -Needs guardian to be appointed by court #Loose stools/bowel incontinence previously: -Tells me he can hold his stool, but when he tries to release the gas, some stool comes out with it. -He will need to use the bed side commode. -Reports that this has been going on for multiple months. Unlikely infectious cause -Recommended fiber supplements, but he refused due to fear of constipation #Hypomagnesemia 2/2 alcohol abuse -Last magnesium wnl -Stopped mag ox due to loose stools #Failure to thrive -Continue supplements -He has refused to see PT/OT multiple times #DVT prophylaxis - Lovenox DISPOSITION: Remains in ALC status. Pending guardianship. VS,Fishbone, I+O VS, Fishbone, I+O Vital Signs Date Time Temp Pulse Resp B/P (MAP) Pulse Ox O2 Delivery O2 Flow Rate FiO2 01/21/20 06:00 98.4 74 16 106/73 (84) 98 Room Air I&O- Last 24 Hours up to 6 AM 01/23/20 05:59 Intake Total 900 ml Output Total 1575 ml Balance -675 ml ESTEBAN ANNA MD Jan 23, 2020 17:58
[2020-01-24] MEDS: FIBER-CON 625 MG TAB PO SCH (09:00)
[2020-01-24] MEDS: NYSTATIN 100,000 UNITS/GM TOPICAL PWD 15 GM TOP SCH ×2 (09:00→20:26)
[2020-01-24] MEDS: THIAMINE 100 MG TAB PO SCH ×2 (12:00→20:26)
[2020-01-24] MEDS: MULTIVITAMINS/MINERALS THERAP 1 TAB PO SCH (12:00)
[2020-01-24] MEDS: FOLIC ACID 1 MG TAB PO SCH (12:00)
[2020-01-24] MEDS: CETIRIZINE (ZyrTEC) 10 MG TAB PO SCH (12:00)
[2020-01-24] MEDS: ENOXAPARIN 40MG/0.4ML SYRINGE (J1650 PER 10MG) SC SCH (12:00)
[2020-01-25] MEDS: FIBER-CON 625 MG TAB PO SCH (09:00)
[2020-01-25] MEDS: NYSTATIN 100,000 UNITS/GM TOPICAL PWD 15 GM TOP SCH ×2 (09:00→20:25)
[2020-01-25] MEDS: ENOXAPARIN 40MG/0.4ML SYRINGE (J1650 PER 10MG) SC SCH (12:00)
[2020-01-25] MEDS: CETIRIZINE (ZyrTEC) 10 MG TAB PO SCH (12:00)
[2020-01-25] MEDS: MULTIVITAMINS/MINERALS THERAP 1 TAB PO SCH (12:00)
[2020-01-25] MEDS: FOLIC ACID 1 MG TAB PO SCH (12:00)
[2020-01-25] MEDS: THIAMINE 100 MG TAB PO SCH ×2 (12:00→20:23)
[2020-01-26 06:44] VITALS: BP 127/83
[2020-01-26] MEDS: FIBER-CON 625 MG TAB PO SCH (09:00)
[2020-01-26] MEDS: MULTIVITAMINS/MINERALS THERAP 1 TAB PO SCH (12:39)
[2020-01-26] MEDS: FOLIC ACID 1 MG TAB PO SCH (12:39)
[2020-01-26] MEDS: ENOXAPARIN 40MG/0.4ML SYRINGE (J1650 PER 10MG) SC SCH (12:39)
[2020-01-26] MEDS: THIAMINE 100 MG TAB PO SCH ×2 (12:39→20:03)
[2020-01-26] MEDS: CETIRIZINE (ZyrTEC) 10 MG TAB PO SCH (12:39)
[2020-01-26] MEDS: NYSTATIN 100,000 UNITS/GM TOPICAL PWD 15 GM TOP SCH ×2 (12:40→20:04)
[2020-01-27 06:00] VITALS: BP 132/87
[2020-01-27] MEDS: FIBER-CON 625 MG TAB PO SCH (07:58)
[2020-01-27] MEDS: THIAMINE 100 MG TAB PO SCH ×2 (12:12→22:41)
[2020-01-27] MEDS: MULTIVITAMINS/MINERALS THERAP 1 TAB PO SCH (12:12)
[2020-01-27] MEDS: CETIRIZINE (ZyrTEC) 10 MG TAB PO SCH (12:12)
[2020-01-27] MEDS: FOLIC ACID 1 MG TAB PO SCH (12:12)
[2020-01-27] MEDS: ENOXAPARIN 40MG/0.4ML SYRINGE (J1650 PER 10MG) SC SCH (12:12)
[2020-01-27] MEDS: NYSTATIN 100,000 UNITS/GM TOPICAL PWD 15 GM TOP SCH ×2 (12:14→22:42)
[2020-01-28 06:00] VITALS: BP 121/81
[2020-01-28] MEDS: FIBER-CON 625 MG TAB PO SCH ×2 (09:00→12:00)
[2020-01-28] MEDS: NYSTATIN 100,000 UNITS/GM TOPICAL PWD 15 GM TOP SCH ×3 (09:00→20:49)
[2020-01-28] MEDS: ENOXAPARIN 40MG/0.4ML SYRINGE (J1650 PER 10MG) SC SCH (12:52)
[2020-01-28] MEDS: MULTIVITAMINS/MINERALS THERAP 1 TAB PO SCH (12:52)
[2020-01-28] MEDS: FOLIC ACID 1 MG TAB PO SCH (12:53)
[2020-01-28] MEDS: CETIRIZINE (ZyrTEC) 10 MG TAB PO SCH (12:53)
[2020-01-28] MEDS: THIAMINE 100 MG TAB PO SCH ×2 (12:53→20:48)
[2020-01-29 06:00] VITALS: BP 114/79
[2020-01-29] MEDS: FIBER-CON 625 MG TAB PO SCH (12:00)
[2020-01-29] MEDS: CETIRIZINE (ZyrTEC) 10 MG TAB PO SCH (13:13)
[2020-01-29] MEDS: THIAMINE 100 MG TAB PO SCH ×2 (13:13→20:26)
[2020-01-29] MEDS: FOLIC ACID 1 MG TAB PO SCH (13:14)
[2020-01-29] MEDS: ENOXAPARIN 40MG/0.4ML SYRINGE (J1650 PER 10MG) SC SCH (13:14)
[2020-01-29] MEDS: NYSTATIN 100,000 UNITS/GM TOPICAL PWD 15 GM TOP SCH ×2 (13:14→20:27)
[2020-01-29] MEDS: MULTIVITAMINS/MINERALS THERAP 1 TAB PO SCH (13:14)
--- NOTE | 2020-01-29 14:44 | IPNPDOC ---
Text Note Date of Service The patient was seen on 01/29/20. 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 Patient was brought in by ambulance, and was found to be disoriented and confused. Patient had a CT scan completed of his head that was negative for any acute changes. Admitted for acute encephalopathy and failure to thrive. Patient was seen and examined at the bedside. Currently patient is awake / alert, however refused to answer any questions. Is sitting up in bed and reading the dinner menu. Nursing staff reports that he gets into moods and decides not to respond and just stare. 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 Chronic microvascular ischemic c hanges.0 - Now mostly seems like his baseline Dementia with abnormal behavior; continues to exhibit behavioral issues Failure to thrive - Patient is a chronic alcoholic - c/w PT and OT Acute on chronic Anemia - Had EGD in 2018 was negative for varices. 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
[2020-01-30 06:00] VITALS: BP 120/86
[2020-01-30] MEDS: MULTIVITAMINS/MINERALS THERAP 1 TAB PO SCH (11:11)
[2020-01-30] MEDS: ENOXAPARIN 40MG/0.4ML SYRINGE (J1650 PER 10MG) SC SCH (11:11)
[2020-01-30] MEDS: THIAMINE 100 MG TAB PO SCH ×2 (11:11→21:23)
[2020-01-30] MEDS: FOLIC ACID 1 MG TAB PO SCH (11:11)
[2020-01-30] MEDS: CETIRIZINE (ZyrTEC) 10 MG TAB PO SCH (11:11)
[2020-01-30] MEDS: NYSTATIN 100,000 UNITS/GM TOPICAL PWD 15 GM TOP SCH ×2 (11:12→21:24)
[2020-01-30] MEDS: FIBER-CON 625 MG TAB PO SCH (11:16)
[2020-01-31 06:00] VITALS: BP 120/81
[2020-01-31] MEDS: FIBER-CON 625 MG TAB PO SCH (13:11)
[2020-01-31] MEDS: FOLIC ACID 1 MG TAB PO SCH (13:11)
[2020-01-31] MEDS: THIAMINE 100 MG TAB PO SCH ×2 (13:12→21:18)
[2020-01-31] MEDS: MULTIVITAMINS/MINERALS THERAP 1 TAB PO SCH (13:12)
[2020-01-31] MEDS: ENOXAPARIN 40MG/0.4ML SYRINGE (J1650 PER 10MG) SC SCH (13:12)
[2020-01-31] MEDS: CETIRIZINE (ZyrTEC) 10 MG TAB PO SCH (13:12)
[2020-01-31] MEDS: NYSTATIN 100,000 UNITS/GM TOPICAL PWD 15 GM TOP SCH ×2 (13:12→21:20)
--- NOTE | 2020-01-31 18:21 | IPNPDOC ---
Date Seen The patient was seen on 01/31/20. Progress Note SUBJECTIVE: patient was seen and examined at bedside. No acute changes overnight. patient withdrawn, non communicative. OBJECTIVE PHYSICAL EXAMINATION: VITAL SIGNS: please see below General: NAD, comfortable, non communicative. HEENT: PERRLA, EOMI, sclerae clear Neck: supple, normal ROM, no JVD Respiratory: lungs CTAB, no wheeze, no rales, no crackles CVS: RRR, normal S1, S2, no murmurs Abdo: soft, no masses, no hepatosplenomegaly, BS+, no rebound tenderness Extremities: no edema, pulses 2+ MSK: no joint deformities, normal ROM Neuro: no focal neuro deficits, moving all 4 extremities. LABORATORY DATA, IMAGING STUDIES, MICROBIOLOGY: Please see below. DVT prophylaxis ordered?:Y Assessment and Plan: Acute Encephalopathy on the background of TBI and possibly Wernicke-Korsakoff d ementia - s/p alcohol withdrawal related delirium on admission - MRI 08/23: No acute intracranial abnormality. Chronic microvascular ischemic changes.0 - Now mostly seems like his baseline Dementia with abnormal behavior; continues to exhibit behavioral issues Failure to thrive - Patient is a chronic alcoholic - c/w PT and OT Acute on chronic Anemia - Had EGD in 2018 was negative for varices. - c/w Thiamine / Folate s/p Hypokalemia - will check labs, cbc, CMP on 02/01/20, last labs 11/20/19. s/p Hypomagnesemia - check Mg on 02/01/20 Alcoholic dependence - Hx of Alcohol withdrawal (Delirium / Seizures) - No evidence of alcohol withdrawal at this time - s/p Serax taper - c/w MVI, Thiamine and Folate Alcoholic liver disease - Had been improving - will check labs, cbc, CMP on 02/01/20, last labs 11/20/19. TBI with intermittent dizziness - Hx of intracranial hemorrhage 2/2 TBI 2/2 Intoxication - Currently is without any focal neurologic deficits - CT head / MRI brain negative for acute changes DVT prophylaxis - c/w Heparin Dispo: - Currently ALC - [facility] date 02/28/20 VS, I&O, 24H, Fishbone Vital Signs/I&O Vital Signs Date Time Temp Pulse Resp B/P (MAP) Pulse Ox O2 Delivery O2 Flow Rate FiO2 01/31/20 06:00 98.1 75 16 120/81 (94) 97 Room Air I&O- Last 24 Hours up to 6 AM 01/31/20 06:00 Intake Total 1400 ml Output Total 850 ml Balance 550 ml PHOEBE HAQ MD Jan 31, 2020 18:21
[2020-02-01 06:00] VITALS: BP 122/82
[2020-02-01] MEDS: FIBER-CON 625 MG TAB PO SCH (12:00)
[2020-02-01] MEDS: ENOXAPARIN 40MG/0.4ML SYRINGE (J1650 PER 10MG) SC SCH (12:09)
[2020-02-01] MEDS: THIAMINE 100 MG TAB PO SCH ×2 (12:10→21:28)
[2020-02-01] MEDS: CETIRIZINE (ZyrTEC) 10 MG TAB PO SCH (12:10)
[2020-02-01] MEDS: MULTIVITAMINS/MINERALS THERAP 1 TAB PO SCH (12:10)
[2020-02-01] MEDS: FOLIC ACID 1 MG TAB PO SCH (12:10)
[2020-02-01] MEDS: NYSTATIN 100,000 UNITS/GM TOPICAL PWD 15 GM TOP SCH ×2 (12:11→21:28)
[2020-02-02 06:00] VITALS: BP 101/68
[2020-02-02] MEDS: FIBER-CON 625 MG TAB PO SCH (12:00)
[2020-02-02] MEDS: THIAMINE 100 MG TAB PO SCH ×2 (12:00→20:42)
[2020-02-02] MEDS: FOLIC ACID 1 MG TAB PO SCH (12:00)
[2020-02-02] MEDS: MULTIVITAMINS/MINERALS THERAP 1 TAB PO SCH (12:00)
[2020-02-02] MEDS: CETIRIZINE (ZyrTEC) 10 MG TAB PO SCH (12:00)
[2020-02-02] MEDS: ENOXAPARIN 40MG/0.4ML SYRINGE (J1650 PER 10MG) SC SCH (12:00)
[2020-02-02] MEDS: NYSTATIN 100,000 UNITS/GM TOPICAL PWD 15 GM TOP SCH ×2 (12:01→20:42)
[2020-02-03 06:00] VITALS: BP 137/96
[2020-02-03] MEDS: NYSTATIN 100,000 UNITS/GM TOPICAL PWD 15 GM TOP SCH ×2 (12:00→23:18)
[2020-02-03] MEDS: THIAMINE 100 MG TAB PO SCH ×2 (12:00→23:17)
[2020-02-03] MEDS: MULTIVITAMINS/MINERALS THERAP 1 TAB PO SCH ×2 (12:00→15:49)
[2020-02-03] MEDS: FOLIC ACID 1 MG TAB PO SCH ×2 (12:00→15:48)
[2020-02-03] MEDS: ENOXAPARIN 40MG/0.4ML SYRINGE (J1650 PER 10MG) SC SCH ×2 (12:00→15:42)
[2020-02-03] MEDS: CETIRIZINE (ZyrTEC) 10 MG TAB PO SCH ×2 (12:00→15:49)
[2020-02-03] MEDS: FIBER-CON 625 MG TAB PO SCH ×2 (12:00→15:41)
[2020-02-04 06:00] VITALS: BP 97/72
[2020-02-04] MEDS: THIAMINE 100 MG TAB PO SCH ×2 (13:53→22:41)
[2020-02-04] MEDS: CETIRIZINE (ZyrTEC) 10 MG TAB PO SCH (13:53)
[2020-02-04] MEDS: FIBER-CON 625 MG TAB PO SCH ×2 (13:53→13:58)
[2020-02-04] MEDS: MULTIVITAMINS/MINERALS THERAP 1 TAB PO SCH (13:54)
[2020-02-04] MEDS: FOLIC ACID 1 MG TAB PO SCH (13:54)
[2020-02-04] MEDS: ENOXAPARIN 40MG/0.4ML SYRINGE (J1650 PER 10MG) SC SCH (13:54)
[2020-02-04] MEDS: NYSTATIN 100,000 UNITS/GM TOPICAL PWD 15 GM TOP SCH ×2 (13:56→21:00)
[2020-02-05 06:00] VITALS: BP 122/82
[2020-02-05] MEDS: FIBER-CON 625 MG TAB PO SCH (12:00)
[2020-02-05] MEDS: THIAMINE 100 MG TAB PO SCH ×2 (13:26→21:50)
[2020-02-05] MEDS: MULTIVITAMINS/MINERALS THERAP 1 TAB PO SCH (13:26)
[2020-02-05] MEDS: CETIRIZINE (ZyrTEC) 10 MG TAB PO SCH (13:26)
[2020-02-05] MEDS: ENOXAPARIN 40MG/0.4ML SYRINGE (J1650 PER 10MG) SC SCH (13:27)
[2020-02-05] MEDS: FOLIC ACID 1 MG TAB PO SCH (13:27)
[2020-02-05] MEDS: NYSTATIN 100,000 UNITS/GM TOPICAL PWD 15 GM TOP SCH ×2 (13:28→21:00)
[2020-02-06] MEDS: THIAMINE 100 MG TAB PO SCH ×2 (12:00→20:49)
[2020-02-06] MEDS: FIBER-CON 625 MG TAB PO SCH (12:00)
[2020-02-06] MEDS: MULTIVITAMINS/MINERALS THERAP 1 TAB PO SCH (16:08)
[2020-02-06] MEDS: FOLIC ACID 1 MG TAB PO SCH (16:09)
[2020-02-06] MEDS: CETIRIZINE (ZyrTEC) 10 MG TAB PO SCH (16:09)
[2020-02-06] MEDS: ENOXAPARIN 40MG/0.4ML SYRINGE (J1650 PER 10MG) SC SCH (16:09)
[2020-02-06] MEDS: NYSTATIN 100,000 UNITS/GM TOPICAL PWD 15 GM TOP SCH ×2 (16:10→21:47)
[2020-02-07 06:00] VITALS: BP 123/83
[2020-02-07] MEDS: FIBER-CON 625 MG TAB PO SCH (12:00)
[2020-02-07] MEDS: FOLIC ACID 1 MG TAB PO SCH (12:59)
[2020-02-07] MEDS: CETIRIZINE (ZyrTEC) 10 MG TAB PO SCH (12:59)
[2020-02-07] MEDS: MULTIVITAMINS/MINERALS THERAP 1 TAB PO SCH (12:59)
[2020-02-07] MEDS: THIAMINE 100 MG TAB PO SCH ×2 (12:59→22:02)
[2020-02-07] MEDS: ENOXAPARIN 40MG/0.4ML SYRINGE (J1650 PER 10MG) SC SCH (13:00)
[2020-02-07] MEDS: NYSTATIN 100,000 UNITS/GM TOPICAL PWD 15 GM TOP SCH ×2 (13:00→22:05)
[2020-02-08 06:00] VITALS: BP 127/83
[2020-02-08] MEDS: FIBER-CON 625 MG TAB PO SCH (12:00)
[2020-02-08] MEDS: THIAMINE 100 MG TAB PO SCH ×2 (12:00→19:50)
[2020-02-08] MEDS: CETIRIZINE (ZyrTEC) 10 MG TAB PO SCH (12:00)
[2020-02-08] MEDS: MULTIVITAMINS/MINERALS THERAP 1 TAB PO SCH (12:00)
[2020-02-08] MEDS: ENOXAPARIN 40MG/0.4ML SYRINGE (J1650 PER 10MG) SC SCH (12:00)
[2020-02-08] MEDS: FOLIC ACID 1 MG TAB PO SCH (12:00)
[2020-02-08] MEDS: NYSTATIN 100,000 UNITS/GM TOPICAL PWD 15 GM TOP SCH ×2 (12:00→19:50)
[2020-02-09 06:00] VITALS: BP 114/79
[2020-02-09] MEDS: FIBER-CON 625 MG TAB PO SCH (12:00)
[2020-02-09] MEDS: MULTIVITAMINS/MINERALS THERAP 1 TAB PO SCH (12:00)
[2020-02-09] MEDS: ENOXAPARIN 40MG/0.4ML SYRINGE (J1650 PER 10MG) SC SCH (13:14)
[2020-02-09] MEDS: FOLIC ACID 1 MG TAB PO SCH (13:14)
[2020-02-09] MEDS: CETIRIZINE (ZyrTEC) 10 MG TAB PO SCH (13:14)
[2020-02-09] MEDS: THIAMINE 100 MG TAB PO SCH (13:15)
[2020-02-09] MEDS: NYSTATIN 100,000 UNITS/GM TOPICAL PWD 15 GM TOP SCH (13:17)
[2020-02-10] MEDS: THIAMINE 100 MG TAB PO SCH ×3 (02:10→21:00)
[2020-02-10] MEDS: NYSTATIN 100,000 UNITS/GM TOPICAL PWD 15 GM TOP SCH ×3 (02:10→21:00)
[2020-02-10 06:00] VITALS: BP 114/75
[2020-02-10] MEDS: FIBER-CON 625 MG TAB PO SCH (12:00)
[2020-02-10] MEDS: MULTIVITAMINS/MINERALS THERAP 1 TAB PO SCH (13:11)
[2020-02-10] MEDS: FOLIC ACID 1 MG TAB PO SCH (13:11)
[2020-02-10] MEDS: CETIRIZINE (ZyrTEC) 10 MG TAB PO SCH (13:12)
[2020-02-10] MEDS: ENOXAPARIN 40MG/0.4ML SYRINGE (J1650 PER 10MG) SC SCH (13:13)
[2020-02-11 06:00] VITALS: BP 114/75
[2020-02-11] MEDS: NYSTATIN 100,000 UNITS/GM TOPICAL PWD 15 GM TOP SCH ×2 (12:00→21:11)
[2020-02-11] MEDS: FIBER-CON 625 MG TAB PO SCH (12:00)
[2020-02-11] MEDS: MULTIVITAMINS/MINERALS THERAP 1 TAB PO SCH (15:07)
[2020-02-11] MEDS: ENOXAPARIN 40MG/0.4ML SYRINGE (J1650 PER 10MG) SC SCH (15:07)
[2020-02-11] MEDS: FOLIC ACID 1 MG TAB PO SCH (15:07)
[2020-02-11] MEDS: CETIRIZINE (ZyrTEC) 10 MG TAB PO SCH (15:07)
[2020-02-11] MEDS: THIAMINE 100 MG TAB PO SCH ×2 (15:08→21:12)
[2020-02-12] MEDS: NYSTATIN 100,000 UNITS/GM TOPICAL PWD 15 GM TOP SCH ×2 (12:00→20:16)
[2020-02-12] MEDS: FIBER-CON 625 MG TAB PO SCH (12:00)
[2020-02-12] MEDS: THIAMINE 100 MG TAB PO SCH ×2 (16:23→20:14)
[2020-02-12] MEDS: CETIRIZINE (ZyrTEC) 10 MG TAB PO SCH (16:23)
[2020-02-12] MEDS: MULTIVITAMINS/MINERALS THERAP 1 TAB PO SCH (16:23)
[2020-02-12] MEDS: FOLIC ACID 1 MG TAB PO SCH (16:23)
[2020-02-12] MEDS: ENOXAPARIN 40MG/0.4ML SYRINGE (J1650 PER 10MG) SC SCH (16:24)
[2020-02-13 06:00] VITALS: BP 121/85
[2020-02-13] MEDS: FOLIC ACID 1 MG TAB PO SCH (12:52)
[2020-02-13] MEDS: CETIRIZINE (ZyrTEC) 10 MG TAB PO SCH (12:52)
[2020-02-13] MEDS: MULTIVITAMINS/MINERALS THERAP 1 TAB PO SCH (12:52)
[2020-02-13] MEDS: THIAMINE 100 MG TAB PO SCH ×2 (12:52→21:00)
[2020-02-13] MEDS: FIBER-CON 625 MG TAB PO SCH (12:52)
[2020-02-13] MEDS: ENOXAPARIN 40MG/0.4ML SYRINGE (J1650 PER 10MG) SC SCH (12:53)
[2020-02-13] MEDS: NYSTATIN 100,000 UNITS/GM TOPICAL PWD 15 GM TOP SCH ×2 (12:53→21:00)
[2020-02-14 06:00] VITALS: BP 104/68
[2020-02-14] MEDS: FIBER-CON 625 MG TAB PO SCH (16:24)
[2020-02-14] MEDS: FOLIC ACID 1 MG TAB PO SCH (16:24)
[2020-02-14] MEDS: MULTIVITAMINS/MINERALS THERAP 1 TAB PO SCH (16:24)
[2020-02-14] MEDS: THIAMINE 100 MG TAB PO SCH ×2 (16:25→20:32)
[2020-02-14] MEDS: CETIRIZINE (ZyrTEC) 10 MG TAB PO SCH (16:25)
[2020-02-14] MEDS: ENOXAPARIN 40MG/0.4ML SYRINGE (J1650 PER 10MG) SC SCH (16:26)
[2020-02-14] MEDS: NYSTATIN 100,000 UNITS/GM TOPICAL PWD 15 GM TOP SCH ×3 (16:26→21:54)
[2020-02-15 06:00] VITALS: BP 131/83
[2020-02-15] MEDS: FIBER-CON 625 MG TAB PO SCH (12:00)
[2020-02-15] MEDS: THIAMINE 100 MG TAB PO SCH ×2 (12:24→20:06)
[2020-02-15] MEDS: FOLIC ACID 1 MG TAB PO SCH (12:24)
[2020-02-15] MEDS: CETIRIZINE (ZyrTEC) 10 MG TAB PO SCH (12:24)
[2020-02-15] MEDS: MULTIVITAMINS/MINERALS THERAP 1 TAB PO SCH (12:24)
[2020-02-15] MEDS: ENOXAPARIN 40MG/0.4ML SYRINGE (J1650 PER 10MG) SC SCH (12:25)
[2020-02-15] MEDS: NYSTATIN 100,000 UNITS/GM TOPICAL PWD 15 GM TOP SCH ×2 (12:26→20:06)
[2020-02-15 18:17] VITALS: BP 118/50
[2020-02-16 06:00] VITALS: BP 113/68
[2020-02-16] MEDS: THIAMINE 100 MG TAB PO SCH ×3 (12:00→21:00)
[2020-02-16] MEDS: ENOXAPARIN 40MG/0.4ML SYRINGE (J1650 PER 10MG) SC SCH ×2 (12:00→13:00)
[2020-02-16] MEDS: FOLIC ACID 1 MG TAB PO SCH ×2 (12:00→12:59)
[2020-02-16] MEDS: NYSTATIN 100,000 UNITS/GM TOPICAL PWD 15 GM TOP SCH ×3 (12:00→21:00)
[2020-02-16] MEDS: MULTIVITAMINS/MINERALS THERAP 1 TAB PO SCH ×2 (12:00→12:59)
[2020-02-16] MEDS: CETIRIZINE (ZyrTEC) 10 MG TAB PO SCH ×2 (12:00→12:59)
[2020-02-16] MEDS: FIBER-CON 625 MG TAB PO SCH (13:00)
[2020-02-17 06:00] VITALS: BP 119/85
[2020-02-17] MEDS: FIBER-CON 625 MG TAB PO SCH (07:47)
[2020-02-17] MEDS: NYSTATIN 100,000 UNITS/GM TOPICAL PWD 15 GM TOP SCH ×2 (07:48→20:22)
[2020-02-17] MEDS: FOLIC ACID 1 MG TAB PO SCH (07:48)
[2020-02-17] MEDS: MULTIVITAMINS/MINERALS THERAP 1 TAB PO SCH (07:48)
[2020-02-17] MEDS: CETIRIZINE (ZyrTEC) 10 MG TAB PO SCH (07:48)
[2020-02-17] MEDS: THIAMINE 100 MG TAB PO SCH ×2 (07:48→20:22)
[2020-02-17] MEDS: ENOXAPARIN 40MG/0.4ML SYRINGE (J1650 PER 10MG) SC SCH (07:49)
[2020-02-18] MEDS: FIBER-CON 625 MG TAB PO SCH (12:00)
[2020-02-18] MEDS: FOLIC ACID 1 MG TAB PO SCH (12:00)
[2020-02-18] MEDS: NYSTATIN 100,000 UNITS/GM TOPICAL PWD 15 GM TOP SCH ×2 (12:00→19:22)
[2020-02-18] MEDS: MULTIVITAMINS/MINERALS THERAP 1 TAB PO SCH (12:00)
[2020-02-18] MEDS: THIAMINE 100 MG TAB PO SCH ×2 (12:00→19:20)
[2020-02-18] MEDS: CETIRIZINE (ZyrTEC) 10 MG TAB PO SCH (12:00)
[2020-02-18] MEDS: ENOXAPARIN 40MG/0.4ML SYRINGE (J1650 PER 10MG) SC SCH (12:00)
[2020-02-19 06:00] VITALS: BP 146/96
[2020-02-19 06:30] VITALS: BP 140/96
[2020-02-19] MEDS: FIBER-CON 625 MG TAB PO SCH (12:00)
[2020-02-19] MEDS: NYSTATIN 100,000 UNITS/GM TOPICAL PWD 15 GM TOP SCH ×2 (12:21→20:56)
[2020-02-19] MEDS: MULTIVITAMINS/MINERALS THERAP 1 TAB PO SCH (12:22)
[2020-02-19] MEDS: THIAMINE 100 MG TAB PO SCH ×2 (12:22→20:55)
[2020-02-19] MEDS: FOLIC ACID 1 MG TAB PO SCH (12:22)
[2020-02-19] MEDS: ENOXAPARIN 40MG/0.4ML SYRINGE (J1650 PER 10MG) SC SCH (12:22)
[2020-02-19] MEDS: CETIRIZINE (ZyrTEC) 10 MG TAB PO SCH (12:22)
[2020-02-20 06:00] VITALS: BP 121/85
[2020-02-20] MEDS: FIBER-CON 625 MG TAB PO SCH (10:26)
[2020-02-20] MEDS: THIAMINE 100 MG TAB PO SCH ×2 (10:27→20:22)
[2020-02-20] MEDS: FOLIC ACID 1 MG TAB PO SCH (10:27)
[2020-02-20] MEDS: MULTIVITAMINS/MINERALS THERAP 1 TAB PO SCH (10:27)
[2020-02-20] MEDS: CETIRIZINE (ZyrTEC) 10 MG TAB PO SCH (10:27)
[2020-02-20] MEDS: NYSTATIN 100,000 UNITS/GM TOPICAL PWD 15 GM TOP SCH ×2 (10:28→20:23)
[2020-02-20] MEDS: ENOXAPARIN 40MG/0.4ML SYRINGE (J1650 PER 10MG) SC SCH (10:28)
[2020-02-21 06:00] VITALS: BP 132/84
[2020-02-21] MEDS: CETIRIZINE (ZyrTEC) 10 MG TAB PO SCH (14:03)
[2020-02-21] MEDS: FIBER-CON 625 MG TAB PO SCH (14:03)
[2020-02-21] MEDS: THIAMINE 100 MG TAB PO SCH ×2 (14:03→20:12)
[2020-02-21] MEDS: FOLIC ACID 1 MG TAB PO SCH (14:03)
[2020-02-21] MEDS: ENOXAPARIN 40MG/0.4ML SYRINGE (J1650 PER 10MG) SC SCH (14:04)
[2020-02-21] MEDS: NYSTATIN 100,000 UNITS/GM TOPICAL PWD 15 GM TOP SCH ×2 (14:05→20:13)
[2020-02-21] MEDS: MULTIVITAMINS/MINERALS THERAP 1 TAB PO SCH (14:07)
--- NOTE | 2020-02-21 14:34 | IPNPDOC ---
Date Seen The patient was seen on 02/21/20. Progress Note SUBJECTIVE: Mentation appears to be better at times, other times noncommunicative. Will order PT/OT again today to see if any change on their end. Otherwise, patient has no acute complaints, no events overnight. OBJECTIVE: PHYSICAL EXAMINATION: VITAL SIGNS: please see below General: NAD, comfortable, but not very communicative with me today. HEENT: PERRLA, EOMI, sclerae clear Neck: supple, normal ROM, no JVD Respiratory: lungs CTAB, no wheeze, no rales, no crackles CVS: RRR, normal S1, S2, no murmurs Abdo: soft, no masses, no hepatosplenomegaly, BS+, no rebound tenderness Extremities: no edema, pulses 2+ MSK: no joint deformities, normal ROM Neuro: no focal neuro deficits, moving all 4 extremities. LABORATORY DATA, IMAGING STUDIES, MICROBIOLOGY: Please see below. 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 Chronic microvascular ischemic changes.0 - Now mostly seems like his baseline Dementia with abnormal behavior; continues to exhibit behavioral issues Failure to thrive - Patient is a chronic alcoholic - F/u reevaluation of PT/OT today Acute on chronic Anemia - Had EGD in 2018 was negative for varices. - c/w Thiamine / Folate - F/u repeat CBC- note, patient has refused labs multiple times this admission so may/may not be done hx of Hypomagnesemia - Fu Mag level in AM Alcoholic dependence - Hx of Alcohol withdrawal (Delirium / Seizures) - No evidence of alcohol withdrawal at this time - s/p Serax taper - c/w MVI, Thiamine and Folate Alcoholic liver disease -Last AST/ALT wnl -F/u CMP in am TBI with intermittent dizziness - Hx of intracranial hemorrhage 2/2 TBI 2/2 Intoxication - Currently is without any focal neurologic deficits - CT head / MRI brain negative for acute changes DVT prophylaxis - c/w Heparin DISPOSITION: Remains ALC status, [facility] court date 02/28/20. Discussed case with PFS today. VS, I&O, 24H, Fishbone Vital Signs/I&O Vital Signs Date Time Temp Pulse Resp B/P (MAP) Pulse Ox O2 Delivery O2 Flow Rate FiO2 02/21/20 06:00 98.4 74 20 132/84 (100) 98 02/17/20 06:00 Room Air I&O- Last 24 Hours up to 6 AM 02/21/20 06:00 Intake Total 1980 ml Output Total 1175 ml Balance 805 ml Current Medications Current Medications Medications (Trade) Dose Ordered Sig/Leah Route PRN Reason Start Time Stop Time Status Last Admin Dose Admin Acetaminophen (Tylenol Tab) 650 mg Q4H PRN PO PAIN OR FEVER 08/24/19 19:30 09/24/19 13:26 DC Acetaminophen (Tylenol Tab) 650 mg Q4H PRN PO PAIN / FEVER 09/27/19 19:00 02/17/20 12:04 DC 10/17/19 16:39 Acetaminophen (Tylenol Tab) 650 mg Q6HP PRN PO PAIN / FEVER 02/17/20 12:15 Calcium Polycarbophil (Fiber Con) 1 ea DAILY PO 12/18/19 12:00 01/28/20 10:57 DC Calcium Polycarbophil (Fiber Con) 1 ea DAILY@1200 PO 01/28/20 12:00 02/21/20 14:03 Cetirizine HCl (ZyrTEC) 10 mg DAILY PO 11/20/19 09:00 12/07/19 16:11 DC 12/07/19 12:17 Cetirizine HCl (ZyrTEC) 10 mg DAILY@1200 PO 12/07/19 12:00 12/07/19 16:18 DC Cetirizine HCl (ZyrTEC) 10 mg DAILY@1200 PO 12/08/19 12:00 02/21/20 14:03 Enoxaparin Sodium (Lovenox) 40 mg DAILY SC 11/06/19 09:00 12/07/19 16:11 DC 12/07/19 12:20 Enoxaparin Sodium (Lovenox) 40 mg DAILY@1200 SC 12/08/19 12:00 02/21/20 14:04 Folic Acid (Folic Acid) 1 mg DAILY PO 08/24/19 09:00 08/24/19 19:33 DC Folic Acid (Folic Acid) 1 mg DAILY PO 08/25/19 09:00 09/24/19 13:26 DC 09/01/19 08:11 Folic Acid (Folic Acid) 1 mg DAILY PO 09/28/19 09:00 12/07/19 16:11 DC 12/07/19 12:17 Folic Acid (Folic Acid) 1 mg DAILY@1200 PO 12/08/19 12:00 02/21/20 14:03 Heparin Sodium (Porcine) (Heparin) 5,000 units Q8H SC 08/24/19 22:00 09/24/19 13:16 DC 09/01/19 05:10 Heparin Sodium (Porcine) (Heparin) 5,000 units Q8H SQ 09/27/19 22:00 11/06/19 10:58 DC 11/05/19 05:36 Home Med (Med Rec Complete!) ASDIRECTED XX 08/24/19 18:00 08/24/19 17:54 DC Lorazepam (Ativan) 2 mg ASDIRECTED PRN PO SEE PROTOCOL 08/24/19 19:30 08/28/19 05:27 DC 08/24/19 22:22 Magnesium Oxide (Mag-Ox) 400 mg BID PO 08/29/19 09:00 09/27/19 08:03 DC 09/01/19 08:12 Magnesium Oxide (Mag-Ox) 400 mg BID PO 09/27/19 21:00 11/20/19 10:17 DC 11/20/19 09:16 Magnesium Sulfate/ Dextrose 1 gm/IV Miscellaneous Supplies 100 ml @ 100 mls/hr Q1H IV 08/25/19 09:00 08/25/19 10:59 DC 08/25/19 10:29 Menthol/Methyl Salicylate (Bengay Cream) 1 dose TIDP PRN TOP PAIN OR DISCOMFORT 10/16/19 16:00 Miscellaneous (Unresolved Clarification Entry) SEE LABEL COMMENTS DAILY XX 11/27/19 09:00 11/28/19 07:39 DC Miscellaneous (Unresolved Clarification Entry) SEE LABEL COMMENTS DAILY XX 12/04/19 09:00 12/04/19 12:01 DC Multivitamins (Theragram-M) 1 tab DAILY PO 08/25/19 09:00 09/24/19 13:26 DC 09/01/19 08:12 Multivitamins (Theragram-M) 1 tab DAILY PO 09/28/19 09:00 12/07/19 16:11 DC 12/07/19 12:17 Multivitamins (Theragram-M) 1 tab DAILY@1200 PO 12/08/19 12:00 02/21/20 14:07 Nystatin (Mycostatin Powder, Nystop) apply to affected area BID@1200,2100 TOP 01/28/20 12:00 02/21/20 14:05 Nystatin (Mycostatin Powder, Nystop) apply to affected area... BID TOP 12/25/19 09:00 01/28/20 10:57 DC 01/28/20 09:00 Nystatin (Mycostatin Powder, Nystop) apply to affected area... BIDP PRN TOP RASH 10/08/19 13:00 12/25/19 10:23 DC 12/07/19 15:06 Oxazepam (Serax) 10 mg BID PO 08/26/19 21:00 08/27/19 06:56 DC Oxazepam (Serax) 10 mg DAILY PO 08/27/19 09:00 08/29/19 07:45 DC 08/28/19 09:49 Oxazepam (Serax) 10 mg DAILY PO 08/30/19 09:00 09/24/19 13:17 DC 09/01/19 08:11 Oxazepam (Serax) 10 mg DAILY PO 09/28/19 09:00 Cancel Oxazepam (Serax) 10 mg Q8H PO 08/24/19 22:00 08/26/19 16:54 DC 08/26/19 05:57 Sodium Chloride (Saline Lock Flush) 2 ml ASDIRECTED PRN IV SEE LABEL COMMENTS 08/25/19 06:00 08/31/19 14:19 DC Sodium Chloride (Saline Lock Flush) 2 ml SLF IV 08/25/19 06:00 08/31/19 14:19 DC 08/30/19 14:58 Thiamine HCl (Thiamine HCl) 100 mg BID PO 08/24/19 20:00 09/24/19 13:26 DC 09/01/19 08:11 Thiamine HCl (Thiamine HCl) 100 mg BID PO 09/27/19 21:00 12/07/19 16:11 DC 12/07/19 12:17 Thiamine HCl (Thiamine HCl) 100 mg BID@1200,2100 PO 12/07/19 21:00 02/21/20 14:03 Allergies Coded Allergies: ceftriaxone (Verified Adverse Reaction, Intermediate, FEELS LIKE "PASSING OUT", 08/17/18) Stefani Chen MD Feb 21, 2020 14:34
[2020-02-22 06:00] VITALS: BP 138/83
[2020-02-22 06:59] LABS: HEMATOCRIT 47.7 % (42.0-52.0); HEMOGLOBIN 13.9 g/dl (13.5-17.5); MEAN CORPUSCULAR HEMOGLOBIN 28.3 pg (27.0-33.0); MEAN CORPUSCULAR HGB CONC 29.1 g/dl (32.0-36.5); MEAN CORPUSCULAR VOLUME 97.1 fl (80.0-96.0); PLATELET COUNT, AUTOMATED 182 10^3/uL (150-450); RED BLOOD COUNT 4.91 10^6/uL (4.30-6.10); WHITE BLOOD COUNT 4.9 10^3/uL (4.0-10.0)
[2020-02-22 07:32] LABS: ALBUMIN 4.1 GM/DL (3.2-5.2); BILIRUBIN,TOTAL 0.7 MG/DL (0.2-1.0); CALCIUM LEVEL 9.6 MG/DL (8.5-10.1); CREATININE FOR GFR 1.35 MG/DL (0.70-1.30); MAGNESIUM LEVEL 2.1 MG/DL (1.8-2.4); POTASSIUM SERUM 4.5 MEQ/L (3.5-5.1); TOTAL PROTEIN 7.6 GM/DL (6.4-8.2)
[2020-02-22] MEDS: FOLIC ACID 1 MG TAB PO SCH (12:00)
[2020-02-22] MEDS: THIAMINE 100 MG TAB PO SCH ×2 (12:00→21:00)
[2020-02-22] MEDS: NYSTATIN 100,000 UNITS/GM TOPICAL PWD 15 GM TOP SCH ×2 (12:00→21:00)
[2020-02-22] MEDS: FIBER-CON 625 MG TAB PO SCH (12:00)
[2020-02-22] MEDS: ENOXAPARIN 40MG/0.4ML SYRINGE (J1650 PER 10MG) SC SCH (12:00)
[2020-02-22] MEDS: MULTIVITAMINS/MINERALS THERAP 1 TAB PO SCH (12:00)
[2020-02-22] MEDS: CETIRIZINE (ZyrTEC) 10 MG TAB PO SCH (12:00)
[2020-02-23 06:00] VITALS: BP 124/80
[2020-02-23] MEDS: FOLIC ACID 1 MG TAB PO SCH (12:00)
[2020-02-23] MEDS: MULTIVITAMINS/MINERALS THERAP 1 TAB PO SCH (12:00)
[2020-02-23] MEDS: CETIRIZINE (ZyrTEC) 10 MG TAB PO SCH (12:00)
[2020-02-23] MEDS: THIAMINE 100 MG TAB PO SCH ×2 (12:00→21:13)
[2020-02-23] MEDS: ENOXAPARIN 40MG/0.4ML SYRINGE (J1650 PER 10MG) SC SCH ×2 (12:00→21:13)
[2020-02-23] MEDS: FIBER-CON 625 MG TAB PO SCH (12:00)
[2020-02-23] MEDS: NYSTATIN 100,000 UNITS/GM TOPICAL PWD 15 GM TOP SCH ×2 (12:28→21:14)
[2020-02-24 06:00] VITALS: BP 128/89
[2020-02-24] MEDS: FIBER-CON 625 MG TAB PO SCH ×2 (12:00→15:34)
[2020-02-24] MEDS: THIAMINE 100 MG TAB PO SCH ×3 (15:34→21:20)
[2020-02-24] MEDS: CETIRIZINE (ZyrTEC) 10 MG TAB PO SCH (15:34)
[2020-02-24] MEDS: FOLIC ACID 1 MG TAB PO SCH (15:34)
[2020-02-24] MEDS: NYSTATIN 100,000 UNITS/GM TOPICAL PWD 15 GM TOP SCH ×3 (15:34→21:21)
[2020-02-24] MEDS: MULTIVITAMINS/MINERALS THERAP 1 TAB PO SCH (15:34)
[2020-02-24] MEDS: ENOXAPARIN 40MG/0.4ML SYRINGE (J1650 PER 10MG) SC SCH (15:42)
[2020-02-25 06:00] VITALS: BP 110/64
[2020-02-25] MEDS: ENOXAPARIN 40MG/0.4ML SYRINGE (J1650 PER 10MG) SC SCH (12:00)
[2020-02-25] MEDS: MULTIVITAMINS/MINERALS THERAP 1 TAB PO SCH (12:00)
[2020-02-25] MEDS: CETIRIZINE (ZyrTEC) 10 MG TAB PO SCH (12:00)
[2020-02-25] MEDS: THIAMINE 100 MG TAB PO SCH ×2 (12:00→20:53)
[2020-02-25] MEDS: FOLIC ACID 1 MG TAB PO SCH (12:00)
[2020-02-25] MEDS: NYSTATIN 100,000 UNITS/GM TOPICAL PWD 15 GM TOP SCH ×2 (12:00→20:53)
[2020-02-26 06:00] VITALS: BP 126/80
[2020-02-26] MEDS: FIBER-CON 625 MG TAB PO SCH ×2 (11:26→11:45)
[2020-02-26] MEDS: FOLIC ACID 1 MG TAB PO SCH (11:26)
[2020-02-26] MEDS: ENOXAPARIN 40MG/0.4ML SYRINGE (J1650 PER 10MG) SC SCH (11:26)
[2020-02-26] MEDS: THIAMINE 100 MG TAB PO SCH ×3 (11:26→21:00)
[2020-02-26] MEDS: MULTIVITAMINS/MINERALS THERAP 1 TAB PO SCH (11:26)
[2020-02-26] MEDS: CETIRIZINE (ZyrTEC) 10 MG TAB PO SCH (11:26)
[2020-02-26] MEDS: NYSTATIN 100,000 UNITS/GM TOPICAL PWD 15 GM TOP SCH ×2 (11:27→21:00)
--- NOTE | 2020-02-26 13:45 | IPNPDOC ---
Date Seen The patient was seen on 02/26/20. Progress Note SUBJECTIVE: I was told the patient had multiple questions for me to address so I went to see him later in the morning on 02/26/2020. I introduced myself and explained to him that I had seen him on 02/20/2020. He denied ever seeing me and stated that, "You did not come see me last week." I reassured him I did and asked him how I could be of service today. He explained to me that he was upset that he had heard that physical therapy had said he has been refusing their services. I was contacted by [facility] this week to reconsult physical therapy as per request to see what his functional status is currently and if it has changed since previous evaluation. I was also asked to reconsult psychiatry (Dr. Yost) as they have previously deemed him not having the capacity to make decisions regarding his care. I read to him the last physical therapy note from 02/23/2020 which states that the patient would not answer any questions presented by physical therapy, that he would simply stare and was also verbally abrasive when answering any questions asked by occupational therapy. It also states that the patient stared at the therapist for several minutes and did not say a single word physical therapy. Physical therapy was canceled and the patient continues to be unable to demonstrate capacity inability to care for himself upon discharge from the hospital. When I read him this last physical therapy note, the patient said that "If physical therapy had explained to me why they want me to perform a specific exercises then maybe I would have agreed to it. I get defensive when things aren't described to me thoroughly." I explained to him that physical therapy has seen him seven times since his admission and that majority of these times reports are stating the same thing. He denies ever refusing physical therapy in the past today and asked me "When am I can be able to go home?". I explained to him the best of my capabilities as to what is going on with guardianship. He had several legal questions which I was not comfortable answering and told him I would defer to patient family services. At this time it is still concerning that the patient does not remember meeting with me last week during my evaluation on 02/20/2020, that he continues to denies refusing therapy when it is very clear that he has multiple times in the past. I am positive that people have explained to him the process of guardianship and him not going back home but the patient is asking, "When am I going back home?". Is this forgetfulness associated with dementia versus denial? Although he seems clear to have a conversation with me it is still clear that he does not remember important events and things that have occurred this hospitalization. Perhaps him blaming others aside from his self is behavioral versus his memory issues; however, this leads me to think that his capacity to make decisions regarding his care is still compromised. Spoke with Dr. Yost on 02/26/2020 and explained to him that the patient family services would like a reconsult for psychiatry. He states that he was just contacted by [employer] this past week to type out his last consult note which he is working on- note written on 09/03/2019. He was told the court wanted a printed statistical programmer/ report as handwriting was difficult to read. His plan is to wait to do a reconsultation until after the court could review his initial consult note thoroughly. I will pass this on to [facility] after weekend. VS, I&O, 24H, Fishbone Vital Signs/I&O Vital Signs Date Time Temp Pulse Resp B/P (MAP) Pulse Ox O2 Delivery O2 Flow Rate FiO2 02/26/20 06:00 97.6 86 18 126/80 (95) 100 Room Air I&O- Last 24 Hours up to 6 AM 02/26/20 06:00 Intake Total 1060 ml Output Total 950 ml Balance 110 ml Stefani Chen MD Feb 26, 2020 13:45
[2020-02-27 06:00] VITALS: BP 125/88
[2020-02-27] MEDS: CETIRIZINE (ZyrTEC) 10 MG TAB PO SCH (11:49)
[2020-02-27] MEDS: MULTIVITAMINS/MINERALS THERAP 1 TAB PO SCH ×3 (11:49→17:23)
[2020-02-27] MEDS: THIAMINE 100 MG TAB PO SCH ×3 (11:49→21:00)
[2020-02-27] MEDS: FOLIC ACID 1 MG TAB PO SCH ×3 (11:49→17:23)
[2020-02-27] MEDS: ENOXAPARIN 40MG/0.4ML SYRINGE (J1650 PER 10MG) SC SCH ×3 (11:50→17:24)
[2020-02-27] MEDS: NYSTATIN 100,000 UNITS/GM TOPICAL PWD 15 GM TOP SCH ×3 (11:50→21:00)
[2020-02-28] MEDS: NYSTATIN 100,000 UNITS/GM TOPICAL PWD 15 GM TOP SCH ×2 (13:23→20:01)
[2020-02-28] MEDS: FOLIC ACID 1 MG TAB PO SCH (13:23)
[2020-02-28] MEDS: CETIRIZINE (ZyrTEC) 10 MG TAB PO SCH (13:24)
[2020-02-28] MEDS: ENOXAPARIN 40MG/0.4ML SYRINGE (J1650 PER 10MG) SC SCH (13:24)
[2020-02-28] MEDS: MULTIVITAMINS/MINERALS THERAP 1 TAB PO SCH (13:24)
[2020-02-28] MEDS: THIAMINE 100 MG TAB PO SCH ×2 (13:24→20:01)
[2020-02-29 06:00] VITALS: BP 119/80
[2020-02-29] MEDS: CETIRIZINE (ZyrTEC) 10 MG TAB PO SCH (14:53)
[2020-02-29] MEDS: FOLIC ACID 1 MG TAB PO SCH (14:53)
[2020-02-29] MEDS: MULTIVITAMINS/MINERALS THERAP 1 TAB PO SCH (14:53)
[2020-02-29] MEDS: THIAMINE 100 MG TAB PO SCH ×2 (14:54→20:11)
[2020-02-29] MEDS: ENOXAPARIN 40MG/0.4ML SYRINGE (J1650 PER 10MG) SC SCH ×2 (14:54→15:25)
[2020-02-29] MEDS: NYSTATIN 100,000 UNITS/GM TOPICAL PWD 15 GM TOP SCH ×2 (14:55→20:11)
[2020-03-01 06:00] VITALS: BP 122/68
[2020-03-01] MEDS: THIAMINE 100 MG TAB PO SCH ×3 (12:00→21:00)
[2020-03-01] MEDS: MULTIVITAMINS/MINERALS THERAP 1 TAB PO SCH ×2 (12:00→13:03)
[2020-03-01] MEDS: FOLIC ACID 1 MG TAB PO SCH ×2 (12:00→13:03)
[2020-03-01] MEDS: NYSTATIN 100,000 UNITS/GM TOPICAL PWD 15 GM TOP SCH ×2 (12:00→21:00)
[2020-03-01] MEDS: CETIRIZINE (ZyrTEC) 10 MG TAB PO SCH ×2 (12:00→13:03)
[2020-03-01] MEDS: ENOXAPARIN 40MG/0.4ML SYRINGE (J1650 PER 10MG) SC SCH ×2 (12:00→13:04)
[2020-03-02] MEDS: THIAMINE 100 MG TAB PO SCH ×3 (00:18→21:00)
[2020-03-02] MEDS: MULTIVITAMINS/MINERALS THERAP 1 TAB PO SCH (11:54)
[2020-03-02] MEDS: CETIRIZINE (ZyrTEC) 10 MG TAB PO SCH (11:54)
[2020-03-02] MEDS: FOLIC ACID 1 MG TAB PO SCH (11:54)
[2020-03-02] MEDS: NYSTATIN 100,000 UNITS/GM TOPICAL PWD 15 GM TOP SCH ×2 (11:55→21:00)
[2020-03-02] MEDS: ENOXAPARIN 40MG/0.4ML SYRINGE (J1650 PER 10MG) SC SCH (11:55)
--- NOTE | 2020-03-02 13:51 | IPNPDOC ---
Text Note Date of Service The patient was seen on 03/02/20. NOTE SUBJECTIVE: Patient seen at bedside. No acute overnight events reported. patient voice no medical complaints, but not particularly interested in conversation. OBJECTIVE: PHYSICAL EXAMINATION: VITAL SIGNS: please see below General: NAD, comfortable, but not very communicative with me today. HEENT: PERRLA, EOMI, sclerae clear Neck: supple, normal ROM, no JVD Respiratory: lungs CTAB, no wheeze, no rales, no crackles CVS: RRR, normal S1, S2, no murmurs Abdo: soft, no masses, no hepatosplenomegaly, BS+, no rebound tenderness Extremities: no edema, pulses 2+ MSK: no joint deformities, normal ROM Neuro: no focal neuro deficits, moving all 4 extremities. LABORATORY DATA, IMAGING STUDIES, MICROBIOLOGY: Please see below. 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 Chronic microvascular ischemic changes.0 - Now mostly seems like his baseline Dementia with abnormal behavior; continues to exhibit behavioral issues #Failure to thrive - Patient is a chronic alcoholic #chronic Anemia - Had EGD in 2019 was negative for varices. - c/w Thiamine / Folate - F/u repeat CBC- note, patient has refused labs multiple times this admission so may/may not be done #hx of Hypomagnesemia #Alcoholic dependence - Hx of Alcohol withdrawal (Delirium / Seizures) - No evidence of alcohol withdrawal at this time - s/p Serax taper - c/w MVI, Thiamine and Folate #Alcoholic liver disease -Last AST/ALT wnl #TBI with intermittent dizziness - Hx of intracranial hemorrhage 2/2 TBI 2/2 Intoxication - Currently is without any focal neurologic deficits - CT head / MRI brain negative for acute changes #DVT prophylaxis - c/w Heparin DISPOSITION: Remains ALC status, pending placement. VS,Fishbone, I+O VS, Fishbone, I+O Vital Signs Date Time Temp Pulse Resp B/P (MAP) Pulse Ox O2 Delivery O2 Flow Rate FiO2 03/01/20 06:00 98.2 74 20 122/68 (86) 98 Room Air I&O- Last 24 Hours up to 6 AM 03/02/20 06:00 Intake Total 1750 ml Output Total 1100 ml Balance 650 ml ESTEBAN ANNA MD Mar 02, 2020 13:51
[2020-03-03 06:00] VITALS: BP 103/71
[2020-03-03 09:40] LABS: BASO % 0.6 % (0.0-1.0); EOS % 0.8 % (0.0-3.0); HEMATOCRIT 43.4 % (42.0-52.0); HEMOGLOBIN 13.9 g/dl (13.5-17.5); LYMPH # 1.1 10^3/uL (1.5-5.0); MEAN CORPUSCULAR HEMOGLOBIN 28.4 pg (27.0-33.0); MEAN CORPUSCULAR VOLUME 88.6 fl (80.0-96.0); MONO # 0.3 10^3/uL (0.0-0.8); MONO % 5.7 % (0.0-5.0); NEUTROPHILS # 3.4 10^3/uL (1.5-8.5); NEUTROPHILS % 70.5 % (36.0-66.0); PLATELET COUNT, AUTOMATED 211 10^3/uL (150-450); WHITE BLOOD COUNT 4.8 10^3/uL (4.0-10.0)
[2020-03-03 10:31] LABS: BILIRUBIN,TOTAL 0.9 MG/DL (0.2-1.0); CALCIUM LEVEL 9.5 MG/DL (8.5-10.1); CREATININE FOR GFR 1.41 MG/DL (0.70-1.30); GLOMERULAR FILTRATION RATE 55.2 (>56); POTASSIUM SERUM 3.9 MEQ/L (3.5-5.1); TOTAL PROTEIN 7.6 GM/DL (6.4-8.2)
[2020-03-03] MEDS: MULTIVITAMINS/MINERALS THERAP 1 TAB PO SCH (12:20)
[2020-03-03] MEDS: FOLIC ACID 1 MG TAB PO SCH (12:20)
[2020-03-03] MEDS: THIAMINE 100 MG TAB PO SCH ×2 (12:20→21:00)
[2020-03-03] MEDS: CETIRIZINE (ZyrTEC) 10 MG TAB PO SCH (12:20)
[2020-03-03] MEDS: ENOXAPARIN 40MG/0.4ML SYRINGE (J1650 PER 10MG) SC SCH (12:20)
[2020-03-03] MEDS: NYSTATIN 100,000 UNITS/GM TOPICAL PWD 15 GM TOP SCH ×2 (12:21→21:00)
[2020-03-04 06:00] VITALS: BP 132/77
[2020-03-04] MEDS: MULTIVITAMINS/MINERALS THERAP 1 TAB PO SCH (12:24)
[2020-03-04] MEDS: FOLIC ACID 1 MG TAB PO SCH (12:24)
[2020-03-04] MEDS: CETIRIZINE (ZyrTEC) 10 MG TAB PO SCH (12:24)
[2020-03-04] MEDS: THIAMINE 100 MG TAB PO SCH ×2 (12:24→20:00)
[2020-03-04] MEDS: NYSTATIN 100,000 UNITS/GM TOPICAL PWD 15 GM TOP SCH ×2 (12:25→20:00)
[2020-03-04] MEDS: ENOXAPARIN 40MG/0.4ML SYRINGE (J1650 PER 10MG) SC SCH (12:25)
[2020-03-05 06:00] VITALS: BP 114/73
[2020-03-05] MEDS: THIAMINE 100 MG TAB PO SCH ×2 (11:43→20:47)
[2020-03-05] MEDS: CETIRIZINE (ZyrTEC) 10 MG TAB PO SCH (11:43)
[2020-03-05] MEDS: FOLIC ACID 1 MG TAB PO SCH (11:43)
[2020-03-05] MEDS: MULTIVITAMINS/MINERALS THERAP 1 TAB PO SCH (11:43)
[2020-03-05] MEDS: NYSTATIN 100,000 UNITS/GM TOPICAL PWD 15 GM TOP SCH ×3 (11:44→20:47)
[2020-03-05] MEDS: ENOXAPARIN 40MG/0.4ML SYRINGE (J1650 PER 10MG) SC SCH (11:44)
[2020-03-06 06:00] VITALS: BP 111/73
--- NOTE | 2020-03-06 15:55 | IPNPDOC ---
Date Seen The patient was seen on 03/06/20. Progress Note SUBJECTIVE: No acute events overnight. Denies chest pain, n/v/d, abdominal pain. OBJECTIVE: PHYSICAL EXAMINATION: VITAL SIGNS: please see below General: NAD, comfortable in bed HEENT: PERRLA, EOMI, sclerae clear Neck: supple, normal ROM, no JVD Respiratory: lungs CTAB, no wheeze, no rales, no crackles CVS: RRR, normal S1, S2, no murmurs Abdo: soft, no masses, no hepatosplenomegaly, BS+, no rebound tenderness Extremities: no edema, pulses 2+ MSK: no joint deformities, normal ROM Neuro: no focal neuro deficits, moving all 4 extremities. LABORATORY DATA, IMAGING STUDIES, MICROBIOLOGY: Please see below. 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 Chronic microvascular ischemic changes.0 - Now mostly seems like his baseline Dementia with abnormal behavior; continues to exhibit behavioral issues at times - Currently for me this AM, appropriate, following commands Acute kidney injury poss on CKD? -Cr has been intermittently elevated at 1.4 since Oct 2019 -No nephrotoxic mediations on list to be stopped -Encouraging PO hydration Q2hrs while awake -F/u repeat labs on 03/13/20 Failure to thrive - Patient is a chronic alcoholic - PT/OT attempted to see patient on 02/23/20; however, patient did not wish to participate - optimize nutrition Acute on chronic Anemia - Had EGD in 2018 was negative for varices. - c/w Thiamine / Folate - F/u repeat CBC 03/13/20 Hx of alcohol abuse with hx of Alcohol withdrawal (Delirium / Seizures) - No evidence of alcohol withdrawal at this time - s/p Serax taper this hospital stay - c/w MVI, Thiamine and Folate Alcoholic liver disease -Last AST/ALT wnl -F/u CMP in am TBI with intermittent dizziness - Hx of intracranial hemorrhage /2 TBI 2/2 Intoxication - Currently is without any focal neurologic deficits - CT head / MRI brain negative for acute changes DVT prophylaxis - c/w Heparin DISPOSITION: Remains ALC status. PFS/SW involved. VS, I&O, 24H, Fishbone Vital Signs/I&O Vital Signs Date Time Temp Pulse Resp B/P (MAP) Pulse Ox O2 Delivery O2 Flow Rate FiO2 03/06/20 06:00 97.6 81 18 111/73 (86) 98 Room Air I&O- Last 24 Hours up to 6 AM 03/06/20 06:00 Intake Total 1360 ml Output Total 2100 ml Balance -740 ml Current Medications Current Medications Medications (Trade) Dose Ordered Sig/Leah Route PRN Reason Start Time Stop Time Status Last Admin Dose Admin Acetaminophen (Tylenol Tab) 650 mg Q4H PRN PO PAIN OR FEVER 08/24/19 19:30 09/24/19 13:26 DC Acetaminophen (Tylenol Tab) 650 mg Q4H PRN PO PAIN / FEVER 09/27/19 19:00 02/17/20 12:04 DC 10/17/19 16:39 Acetaminophen (Tylenol Tab) 650 mg Q6HP PRN PO PAIN / FEVER 02/17/20 12:15 Calcium Polycarbophil (Fiber Con) 1 ea DAILY PO 12/18/19 12:00 01/28/20 10:57 DC Calcium Polycarbophil (Fiber Con) 1 ea DAILY@1200 PO 01/28/20 12:00 02/26/20 11:51 DC 02/21/20 14:03 Cetirizine HCl (ZyrTEC) 10 mg DAILY PO 11/20/19 09:00 12/07/19 16:11 DC 12/07/19 12:17 Cetirizine HCl (ZyrTEC) 10 mg DAILY@1200 PO 12/07/19 12:00 12/07/19 16:18 DC Cetirizine HCl (ZyrTEC) 10 mg DAILY@1200 PO 12/08/19 12:00 03/05/20 11:43 Enoxaparin Sodium (Lovenox) 40 mg DAILY SC 11/06/19 09:00 12/07/19 16:11 DC 12/07/19 12:20 Enoxaparin Sodium (Lovenox) 40 mg DAILY@1200 SC 12/08/19 12:00 03/05/20 11:44 Folic Acid (Folic Acid) 1 mg DAILY PO 08/24/19 09:00 08/24/19 19:33 DC Folic Acid (Folic Acid) 1 mg DAILY PO 08/25/19 09:00 09/24/19 13:26 DC 09/01/19 08:11 Folic Acid (Folic Acid) 1 mg DAILY PO 09/28/19 09:00 12/07/19 16:11 DC 12/07/19 12:17 Folic Acid (Folic Acid) 1 mg DAILY@1200 PO 12/08/19 12:00 03/05/20 11:43 Heparin Sodium (Porcine) (Heparin) 5,000 units Q8H SC 08/24/19 22:00 09/24/19 13:16 DC 09/01/19 05:10 Heparin Sodium (Porcine) (Heparin) 5,000 units Q8H SQ 09/27/19 22:00 11/06/19 10:58 DC 11/05/19 05:36 Home Med (Med Rec Complete!) ASDIRECTED XX 08/24/19 18:00 08/24/19 17:54 DC Lorazepam (Ativan) 2 mg ASDIRECTED PRN PO SEE PROTOCOL 08/24/19 19:30 08/28/19 05:27 DC 08/24/19 22:22 Magnesium Oxide (Mag-Ox) 400 mg BID PO 08/29/19 09:00 09/27/19 08:03 DC 09/01/19 08:12 Magnesium Oxide (Mag-Ox) 400 mg BID PO 09/27/19 21:00 11/20/19 10:17 DC 11/20/19 09:16 Magnesium Sulfate/ Dextrose 1 gm/IV Miscellaneous Supplies 100 ml @ 100 mls/hr Q1H IV 08/25/19 09:00 08/25/19 10:59 DC 08/25/19 10:29 Menthol/Methyl Salicylate (Bengay Cream) 1 dose TIDP PRN TOP PAIN OR DISCOMFORT 10/16/19 16:00 Miscellaneous (Unresolved Clarification Entry) SEE LABEL COMMENTS DAILY XX 02/26/20 09:00 02/26/20 12:29 DC Miscellaneous (Unresolved Clarification Entry) SEE LABEL COMMENTS DAILY XX 03/03/20 09:00 03/03/20 16:16 DC Miscellaneous (Unresolved Clarification Entry) SEE LABEL COMMENTS DAILY XX 11/27/19 09:00 11/28/19 07:39 DC Miscellaneous (Unresolved Clarification Entry) SEE LABEL COMMENTS DAILY XX 12/04/19 09:00 12/04/19 12:01 DC Multivitamins (Theragram-M) 1 tab DAILY PO 08/25/19 09:00 09/24/19 13:26 DC 09/01/19 08:12 Multivitamins (Theragram-M) 1 tab DAILY PO 09/28/19 09:00 12/07/19 16:11 DC 12/07/19 12:17 Multivitamins (Theragram-M) 1 tab DAILY@1200 PO 12/08/19 12:00 03/05/20 11:43 Nystatin (Mycostatin Powder, Nystop) apply to affected area BID@1200,2100 TOP 01/28/20 12:00 03/05/20 20:47 Nystatin (Mycostatin Powder, Nystop) apply to affected area... BID TOP 12/25/19 09:00 01/28/20 10:57 DC 01/28/20 09:00 Nystatin (Mycostatin Powder, Nystop) apply to affected area... BIDP PRN TOP RASH 10/08/19 13:00 12/25/19 10:23 DC 12/07/19 15:06 Oxazepam (Serax) 10 mg BID PO 08/26/19 21:00 08/27/19 06:56 DC Oxazepam (Serax) 10 mg DAILY PO 08/27/19 09:00 08/29/19 07:45 DC 08/28/19 09:49 Oxazepam (Serax) 10 mg DAILY PO 08/30/19 09:00 09/24/19 13:17 DC 09/01/19 08:11 Oxazepam (Serax) 10 mg DAILY PO 09/28/19 09:00 Cancel Oxazepam (Serax) 10 mg Q8H PO 08/24/19 22:00 08/26/19 16:54 DC 08/26/19 05:57 Sodium Chloride (Saline Lock Flush) 2 ml ASDIRECTED PRN IV SEE LABEL COMMENTS 08/25/19 06:00 08/31/19 14:19 DC Sodium Chloride (Saline Lock Flush) 2 ml SLF IV 08/25/19 06:00 08/31/19 14:19 DC 08/30/19 14:58 Thiamine HCl (Thiamine HCl) 100 mg BID PO 08/24/19 20:00 09/24/19 13:26 DC 09/01/19 08:11 Thiamine HCl (Thiamine HCl) 100 mg BID PO 09/27/19 21:00 12/07/19 16:11 DC 12/07/19 12:17 Thiamine HCl (Thiamine HCl) 100 mg BID@1200,2100 PO 12/07/19 21:00 03/05/20 20:47 Allergies Coded Allergies: ceftriaxone (Verified Adverse Reaction, Intermediate, FEELS LIKE "PASSING OUT", 08/17/18) Stefani Chen MD Mar 06, 2020 15:55
[2020-03-06] MEDS: ENOXAPARIN 40MG/0.4ML SYRINGE (J1650 PER 10MG) SC SCH (17:03)
[2020-03-06] MEDS: CETIRIZINE (ZyrTEC) 10 MG TAB PO SCH (17:03)
[2020-03-06] MEDS: FOLIC ACID 1 MG TAB PO SCH (17:03)
[2020-03-06] MEDS: THIAMINE 100 MG TAB PO SCH ×2 (17:03→20:30)
[2020-03-06] MEDS: MULTIVITAMINS/MINERALS THERAP 1 TAB PO SCH (17:03)
[2020-03-06] MEDS: NYSTATIN 100,000 UNITS/GM TOPICAL PWD 15 GM TOP SCH ×2 (17:04→20:29)
[2020-03-07 06:00] VITALS: BP 114/75
[2020-03-07] MEDS: THIAMINE 100 MG TAB PO SCH ×2 (14:08→20:01)
[2020-03-07] MEDS: MULTIVITAMINS/MINERALS THERAP 1 TAB PO SCH (14:08)
[2020-03-07] MEDS: FOLIC ACID 1 MG TAB PO SCH (14:08)
[2020-03-07] MEDS: NYSTATIN 100,000 UNITS/GM TOPICAL PWD 15 GM TOP SCH ×2 (14:09→20:01)
[2020-03-07] MEDS: CETIRIZINE (ZyrTEC) 10 MG TAB PO SCH (14:09)
[2020-03-07] MEDS: ENOXAPARIN 40MG/0.4ML SYRINGE (J1650 PER 10MG) SC SCH (14:09)
[2020-03-08 06:00] VITALS: BP 113/71
[2020-03-08] MEDS: THIAMINE 100 MG TAB PO SCH ×3 (12:00→20:55)
[2020-03-08] MEDS: NYSTATIN 100,000 UNITS/GM TOPICAL PWD 15 GM TOP SCH ×2 (12:00→20:55)
[2020-03-08] MEDS: ENOXAPARIN 40MG/0.4ML SYRINGE (J1650 PER 10MG) SC SCH ×2 (12:00→17:00)
[2020-03-08] MEDS: FOLIC ACID 1 MG TAB PO SCH ×2 (12:00→17:00)
[2020-03-08] MEDS: MULTIVITAMINS/MINERALS THERAP 1 TAB PO SCH ×2 (12:00→17:00)
[2020-03-08] MEDS: CETIRIZINE (ZyrTEC) 10 MG TAB PO SCH ×2 (12:00→17:00)
[2020-03-09 06:00] VITALS: BP 121/77
[2020-03-09] MEDS: CETIRIZINE (ZyrTEC) 10 MG TAB PO SCH (11:22)
[2020-03-09] MEDS: MULTIVITAMINS/MINERALS THERAP 1 TAB PO SCH (11:22)
[2020-03-09] MEDS: ENOXAPARIN 40MG/0.4ML SYRINGE (J1650 PER 10MG) SC SCH (11:22)
[2020-03-09] MEDS: FOLIC ACID 1 MG TAB PO SCH (11:22)
[2020-03-09] MEDS: THIAMINE 100 MG TAB PO SCH (11:22)
[2020-03-09] MEDS: NYSTATIN 100,000 UNITS/GM TOPICAL PWD 15 GM TOP SCH (11:23)
[2020-03-10] MEDS: THIAMINE 100 MG TAB PO SCH ×3 (01:20→20:14)
[2020-03-10] MEDS: NYSTATIN 100,000 UNITS/GM TOPICAL PWD 15 GM TOP SCH ×3 (01:21→20:13)
[2020-03-10 06:00] VITALS: BP 129/84
[2020-03-10] MEDS: CETIRIZINE (ZyrTEC) 10 MG TAB PO SCH (14:43)
[2020-03-10] MEDS: MULTIVITAMINS/MINERALS THERAP 1 TAB PO SCH (14:43)
[2020-03-10] MEDS: FOLIC ACID 1 MG TAB PO SCH (14:43)
[2020-03-10] MEDS: ENOXAPARIN 40MG/0.4ML SYRINGE (J1650 PER 10MG) SC SCH (14:44)
[2020-03-11] MEDS: NYSTATIN 100,000 UNITS/GM TOPICAL PWD 15 GM TOP SCH ×3 (10:29→19:40)
[2020-03-11] MEDS: CETIRIZINE (ZyrTEC) 10 MG TAB PO SCH (10:29)
[2020-03-11] MEDS: THIAMINE 100 MG TAB PO SCH ×2 (10:29→19:39)
[2020-03-11] MEDS: MULTIVITAMINS/MINERALS THERAP 1 TAB PO SCH (10:29)
[2020-03-11] MEDS: FOLIC ACID 1 MG TAB PO SCH (10:29)
[2020-03-11] MEDS: ENOXAPARIN 40MG/0.4ML SYRINGE (J1650 PER 10MG) SC SCH (10:30)
[2020-03-12 06:00] VITALS: BP 117/64
[2020-03-12] MEDS: CETIRIZINE (ZyrTEC) 10 MG TAB PO SCH (12:10)
[2020-03-12] MEDS: FOLIC ACID 1 MG TAB PO SCH (12:10)
[2020-03-12] MEDS: ENOXAPARIN 40MG/0.4ML SYRINGE (J1650 PER 10MG) SC SCH (12:10)
[2020-03-12] MEDS: MULTIVITAMINS/MINERALS THERAP 1 TAB PO SCH (12:10)
[2020-03-12] MEDS: THIAMINE 100 MG TAB PO SCH ×2 (12:10→19:30)
[2020-03-12] MEDS: NYSTATIN 100,000 UNITS/GM TOPICAL PWD 15 GM TOP SCH ×2 (12:11→19:30)
[2020-03-13 06:00] VITALS: BP 116/67
[2020-03-13] MEDS: ENOXAPARIN 40MG/0.4ML SYRINGE (J1650 PER 10MG) SC SCH (12:47)
[2020-03-13] MEDS: NYSTATIN 100,000 UNITS/GM TOPICAL PWD 15 GM TOP SCH ×2 (12:47→19:42)
[2020-03-13] MEDS: THIAMINE 100 MG TAB PO SCH ×2 (12:47→19:41)
[2020-03-13] MEDS: MULTIVITAMINS/MINERALS THERAP 1 TAB PO SCH (12:47)
[2020-03-13] MEDS: CETIRIZINE (ZyrTEC) 10 MG TAB PO SCH (12:47)
[2020-03-13] MEDS: FOLIC ACID 1 MG TAB PO SCH (12:47)
[2020-03-14] MEDS: ACETAMINOPHEN TAB 650MG DOSE (2X325MG) PO PRN ×2 (01:04→11:15)
[2020-03-14 06:00] VITALS: BP 110/66
[2020-03-14] MEDS: ENOXAPARIN 40MG/0.4ML SYRINGE (J1650 PER 10MG) SC SCH (11:14)
[2020-03-14] MEDS: FOLIC ACID 1 MG TAB PO SCH (11:14)
[2020-03-14] MEDS: MULTIVITAMINS/MINERALS THERAP 1 TAB PO SCH (11:14)
[2020-03-14] MEDS: CETIRIZINE (ZyrTEC) 10 MG TAB PO SCH (11:14)
[2020-03-14] MEDS: THIAMINE 100 MG TAB PO SCH ×2 (11:15→20:05)
[2020-03-14] MEDS: NYSTATIN 100,000 UNITS/GM TOPICAL PWD 15 GM TOP SCH ×2 (11:15→20:05)
[2020-03-15 06:00] VITALS: BP 132/81
[2020-03-15] MEDS: ACETAMINOPHEN TAB 650MG DOSE (2X325MG) PO PRN (06:53)
[2020-03-15] MEDS: FOLIC ACID 1 MG TAB PO SCH (12:24)
[2020-03-15] MEDS: NYSTATIN 100,000 UNITS/GM TOPICAL PWD 15 GM TOP SCH ×2 (12:25→20:22)
[2020-03-15] MEDS: THIAMINE 100 MG TAB PO SCH ×2 (12:25→20:22)
[2020-03-15] MEDS: ENOXAPARIN 40MG/0.4ML SYRINGE (J1650 PER 10MG) SC SCH (12:25)
[2020-03-15] MEDS: CETIRIZINE (ZyrTEC) 10 MG TAB PO SCH (12:25)
[2020-03-15] MEDS: MULTIVITAMINS/MINERALS THERAP 1 TAB PO SCH (12:25)
[2020-03-16 06:00] VITALS: BP 129/82
[2020-03-16] MEDS: THIAMINE 100 MG TAB PO SCH ×2 (14:33→20:54)
[2020-03-16] MEDS: NYSTATIN 100,000 UNITS/GM TOPICAL PWD 15 GM TOP SCH ×2 (14:33→20:55)
[2020-03-16] MEDS: MULTIVITAMINS/MINERALS THERAP 1 TAB PO SCH (14:34)
[2020-03-16] MEDS: CETIRIZINE (ZyrTEC) 10 MG TAB PO SCH (14:34)
[2020-03-16] MEDS: ENOXAPARIN 40MG/0.4ML SYRINGE (J1650 PER 10MG) SC SCH (14:34)
[2020-03-16] MEDS: FOLIC ACID 1 MG TAB PO SCH (14:34)
[2020-03-17 06:00] VITALS: BP 127/83
[2020-03-17] MEDS: FOLIC ACID 1 MG TAB PO SCH (12:36)
[2020-03-17] MEDS: MULTIVITAMINS/MINERALS THERAP 1 TAB PO SCH (12:36)
[2020-03-17] MEDS: CETIRIZINE (ZyrTEC) 10 MG TAB PO SCH (12:36)
[2020-03-17] MEDS: THIAMINE 100 MG TAB PO SCH ×2 (12:37→21:03)
[2020-03-17] MEDS: NYSTATIN 100,000 UNITS/GM TOPICAL PWD 15 GM TOP SCH ×2 (12:37→21:03)
[2020-03-17] MEDS: ENOXAPARIN 40MG/0.4ML SYRINGE (J1650 PER 10MG) SC SCH (12:37)
[2020-03-18 06:00] VITALS: BP 129/77
--- NOTE | 2020-03-18 12:08 | IPNPDOC ---
Text Note Date of Service The patient was seen on 03/18/20. NOTE Subjective: Patient seen at bedside. Numerous attempts at conversation, however patient not answering any questions. He stares at the wall behind me with no reaction. 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 Chronic microvascular ischemic changes.0 - Now mostly seems like his baseline Dementia with abnormal behavior; continues to exhibit behavioral issues #Failure to thrive - Patient is a chronic alcoholic #chronic Anemia - Had EGD in 2018 was negative for varices. - c/w Thiamine / Folate - F/u repeat CBC- note, patient has refused labs multiple times this admission so may/may not be done #hx of Hypomagnesemia #Alcoholic dependence - Hx of Alcohol withdrawal (Delirium / Seizures) - No evidence of alcohol withdrawal at this time - s/p Serax taper - c/w MVI, Thiamine and Folate #Alcoholic liver disease -Last AST/ALT wnl #TBI with intermittent dizziness - Hx of intracranial hemorrhage 2/2 TBI 2/2 Intoxication - Currently is without any focal neurologic deficits - CT head / MRI brain negative for acute changes #DVT prophylaxis - c/w Heparin DISPOSITION: Remains ALC status, pending placement., check routine labs today - patient refused lab work VS,Fishbone, I+O VS, Fishbone, I+O Vital Signs Date Time Temp Pulse Resp B/P (MAP) Pulse Ox O2 Delivery O2 Flow Rate FiO2 03/18/20 06:00 97.8 81 20 129/77 (94) 99 03/17/20 06:00 Room Air I&O- Last 24 Hours up to 6 AM 03/18/20 06:00 Intake Total 1760 ml Output Total 900 ml Balance 860 ml ESTEBAN ANNA MD Mar 18, 2020 12:08
[2020-03-18] MEDS: CETIRIZINE (ZyrTEC) 10 MG TAB PO SCH (13:31)
[2020-03-18] MEDS: THIAMINE 100 MG TAB PO SCH ×2 (13:31→20:43)
[2020-03-18] MEDS: MULTIVITAMINS/MINERALS THERAP 1 TAB PO SCH (13:31)
[2020-03-18] MEDS: FOLIC ACID 1 MG TAB PO SCH (13:31)
[2020-03-18] MEDS: ENOXAPARIN 40MG/0.4ML SYRINGE (J1650 PER 10MG) SC SCH (13:31)
[2020-03-18] MEDS: NYSTATIN 100,000 UNITS/GM TOPICAL PWD 15 GM TOP SCH ×2 (13:32→20:44)
[2020-03-19 06:00] VITALS: BP 132/82
[2020-03-19] MEDS: THIAMINE 100 MG TAB PO SCH ×2 (14:33→21:17)
[2020-03-19] MEDS: CETIRIZINE (ZyrTEC) 10 MG TAB PO SCH (14:33)
[2020-03-19] MEDS: MULTIVITAMINS/MINERALS THERAP 1 TAB PO SCH (14:33)
[2020-03-19] MEDS: FOLIC ACID 1 MG TAB PO SCH (14:33)
[2020-03-19] MEDS: ENOXAPARIN 40MG/0.4ML SYRINGE (J1650 PER 10MG) SC SCH (14:34)
[2020-03-19] MEDS: NYSTATIN 100,000 UNITS/GM TOPICAL PWD 15 GM TOP SCH ×2 (14:35→21:21)
[2020-03-20 06:00] VITALS: BP 117/80
[2020-03-20] MEDS: CETIRIZINE (ZyrTEC) 10 MG TAB PO SCH (12:31)
[2020-03-20] MEDS: ENOXAPARIN 40MG/0.4ML SYRINGE (J1650 PER 10MG) SC SCH (12:31)
[2020-03-20] MEDS: FOLIC ACID 1 MG TAB PO SCH (12:31)
[2020-03-20] MEDS: MULTIVITAMINS/MINERALS THERAP 1 TAB PO SCH (12:31)
[2020-03-20] MEDS: NYSTATIN 100,000 UNITS/GM TOPICAL PWD 15 GM TOP SCH ×2 (12:31→19:45)
[2020-03-20] MEDS: THIAMINE 100 MG TAB PO SCH ×2 (12:31→19:44)
[2020-03-21 06:00] VITALS: BP 136/88
[2020-03-21] MEDS: THIAMINE 100 MG TAB PO SCH ×2 (13:50→20:06)
[2020-03-21] MEDS: MULTIVITAMINS/MINERALS THERAP 1 TAB PO SCH (13:50)
[2020-03-21] MEDS: CETIRIZINE (ZyrTEC) 10 MG TAB PO SCH (13:51)
[2020-03-21] MEDS: ENOXAPARIN 40MG/0.4ML SYRINGE (J1650 PER 10MG) SC SCH (13:51)
[2020-03-21] MEDS: FOLIC ACID 1 MG TAB PO SCH (13:51)
[2020-03-21] MEDS: NYSTATIN 100,000 UNITS/GM TOPICAL PWD 15 GM TOP SCH ×2 (13:52→20:06)
[2020-03-22 06:00] VITALS: BP 128/80
[2020-03-22] MEDS: THIAMINE 100 MG TAB PO SCH ×2 (12:03→20:19)
[2020-03-22] MEDS: CETIRIZINE (ZyrTEC) 10 MG TAB PO SCH (12:03)
[2020-03-22] MEDS: FOLIC ACID 1 MG TAB PO SCH (12:03)
[2020-03-22] MEDS: ENOXAPARIN 40MG/0.4ML SYRINGE (J1650 PER 10MG) SC SCH (12:04)
[2020-03-22] MEDS: NYSTATIN 100,000 UNITS/GM TOPICAL PWD 15 GM TOP SCH ×2 (12:04→20:20)
[2020-03-22] MEDS: MULTIVITAMINS/MINERALS THERAP 1 TAB PO SCH (12:06)
[2020-03-23] MEDS: NYSTATIN 100,000 UNITS/GM TOPICAL PWD 15 GM TOP SCH ×3 (12:21→20:48)
[2020-03-23] MEDS: ENOXAPARIN 40MG/0.4ML SYRINGE (J1650 PER 10MG) SC SCH ×2 (12:21→15:15)
[2020-03-23] MEDS: CETIRIZINE (ZyrTEC) 10 MG TAB PO SCH (12:21)
[2020-03-23] MEDS: THIAMINE 100 MG TAB PO SCH ×3 (12:21→20:48)
[2020-03-23] MEDS: MULTIVITAMINS/MINERALS THERAP 1 TAB PO SCH ×2 (12:21→15:15)
[2020-03-23] MEDS: FOLIC ACID 1 MG TAB PO SCH ×2 (12:21→15:15)
[2020-03-24 06:00] VITALS: BP 122/66
[2020-03-24] MEDS: ENOXAPARIN 40MG/0.4ML SYRINGE (J1650 PER 10MG) SC SCH ×3 (12:00→17:54)
--- NOTE | 2020-03-24 12:12 | IPNPDOC ---
Text Note Date of Service The patient was seen on 03/24/20. NOTE Subjective: Patient seen at bedside. Eating breakfast sitting up by the side of the bed. Allowed physical exam. Does not offer any complaints. OBJECTIVE: VS: see below General: NAD, sitting comfortably in bed HEENT: PERRLA, EOMI, sclerae clear Neck: supple, normal ROM, no JVD Respiratory: lungs CTAB, no wheeze, no rales, no crackles CVS: RRR, normal S1, S2, no murmurs Abdo: soft, no masses, no hepatosplenomegaly, BS+, no rebound tenderness Extremities: no edema, pulses 2+ ASSESSMENT/PLAN: Patient is a 59-year-old male with a PMHx of Alcoholic dependence, Alcoholic liver disease, Hx of Alcohol withdrawal (Delirium / Seizures), Hx of intracranial hemorrhage 2/2 TBI 2/2 Intoxication, who presented to the hospital after he was found by his friend covered in feces. Patient was brought in by ambulance, and was found to be disoriented and confused. Patient had a CT scan completed of his head that was negative for any acute changes. Admitted for acute encephalopathy and failure to thrive. He was diagnosed with Wernicke- Korsakoff dementia. Acute Encephalopathy with hx of TBI and Wernicke-Korsakoff dementia At baseline Dementia with abnormal behavior continues to exhibit behavioral issues Failure to thrive Improving now with regular meals in hospital with last several months. Improved albumin levels. Chronic Anemia Had EGD in 2019 was negative for varices. c/w Thiamine / Folate Alcoholic dependence Hx of Alcohol withdrawal (Delirium / Seizures) c/w MVI, Thiamine and Folate Alcoholic liver disease no acute issues. TBI with intermittent dizziness Hx of intracranial hemorrhage 2/2 TBI 2/[address] head / MRI brain negative for acute changes DVT prophylaxis c/w Heparin DISPOSITION: Remains ALC status, pending placement. VS,Fishbone, I+O VS, Fishbone, I+O Vital Signs Date Time Temp Pulse Resp B/P (MAP) Pulse Ox O2 Delivery O2 Flow Rate FiO2 03/24/20 06:00 98.1 68 17 122/66 (84) 98 Room Air I&O- Last 24 Hours up to 6 AM 03/24/20 06:00 Intake Total 1950 ml Output Total 575 ml Balance 1375 ml RUY ADRIAN MD Mar 24, 2020 12:12
[2020-03-24] MEDS: FOLIC ACID 1 MG TAB PO SCH (13:23)
[2020-03-24] MEDS: MULTIVITAMINS/MINERALS THERAP 1 TAB PO SCH (13:23)
[2020-03-24] MEDS: CETIRIZINE (ZyrTEC) 10 MG TAB PO SCH (13:23)
[2020-03-24] MEDS: THIAMINE 100 MG TAB PO SCH ×2 (13:23→19:57)
[2020-03-24] MEDS: NYSTATIN 100,000 UNITS/GM TOPICAL PWD 15 GM TOP SCH ×2 (13:24→20:00)
[2020-03-24] MEDS ORDERED: CALCIUM CARBONATE 500 MG CHEW U/D PO PRN (18:30)
[2020-03-25 06:00] VITALS: BP 124/79
[2020-03-25] MEDS: THIAMINE 100 MG TAB PO SCH ×2 (15:15→19:19)
[2020-03-25] MEDS: MULTIVITAMINS/MINERALS THERAP 1 TAB PO SCH (15:15)
[2020-03-25] MEDS: CETIRIZINE (ZyrTEC) 10 MG TAB PO SCH (15:15)
[2020-03-25] MEDS: FOLIC ACID 1 MG TAB PO SCH (15:15)
[2020-03-25] MEDS: ENOXAPARIN 40MG/0.4ML SYRINGE (J1650 PER 10MG) SC SCH (15:15)
[2020-03-25] MEDS: NYSTATIN 100,000 UNITS/GM TOPICAL PWD 15 GM TOP SCH ×2 (15:16→19:17)
[2020-03-26 06:00] VITALS: BP 109/69
[2020-03-26] MEDS: CETIRIZINE (ZyrTEC) 10 MG TAB PO SCH (15:00)
[2020-03-26] MEDS: FOLIC ACID 1 MG TAB PO SCH (15:00)
[2020-03-26] MEDS: MULTIVITAMINS/MINERALS THERAP 1 TAB PO SCH (15:00)
[2020-03-26] MEDS: ENOXAPARIN 40MG/0.4ML SYRINGE (J1650 PER 10MG) SC SCH (15:00)
[2020-03-26] MEDS: THIAMINE 100 MG TAB PO SCH ×2 (15:00→19:21)
[2020-03-26] MEDS: NYSTATIN 100,000 UNITS/GM TOPICAL PWD 15 GM TOP SCH ×2 (15:02→19:21)
[2020-03-27 06:00] VITALS: BP 122/87
[2020-03-27] MEDS: THIAMINE 100 MG TAB PO SCH ×2 (11:26→19:32)
[2020-03-27] MEDS: MULTIVITAMINS/MINERALS THERAP 1 TAB PO SCH (11:26)
[2020-03-27] MEDS: FOLIC ACID 1 MG TAB PO SCH (11:26)
[2020-03-27] MEDS: ENOXAPARIN 40MG/0.4ML SYRINGE (J1650 PER 10MG) SC SCH (11:26)
[2020-03-27] MEDS: CETIRIZINE (ZyrTEC) 10 MG TAB PO SCH (11:26)
[2020-03-27] MEDS: NYSTATIN 100,000 UNITS/GM TOPICAL PWD 15 GM TOP SCH ×2 (11:27→19:31)
[2020-03-28] MEDS: MULTIVITAMINS/MINERALS THERAP 1 TAB PO SCH (13:12)
[2020-03-28] MEDS: CETIRIZINE (ZyrTEC) 10 MG TAB PO SCH (13:12)
[2020-03-28] MEDS: THIAMINE 100 MG TAB PO SCH ×2 (13:12→22:06)
[2020-03-28] MEDS: FOLIC ACID 1 MG TAB PO SCH (13:12)
[2020-03-28] MEDS: ENOXAPARIN 40MG/0.4ML SYRINGE (J1650 PER 10MG) SC SCH (13:12)
[2020-03-28] MEDS: NYSTATIN 100,000 UNITS/GM TOPICAL PWD 15 GM TOP SCH ×2 (13:13→21:00)
[2020-03-29 06:00] VITALS: BP 122/86
[2020-03-29] MEDS: ENOXAPARIN 40MG/0.4ML SYRINGE (J1650 PER 10MG) SC SCH (13:09)
[2020-03-29] MEDS: MULTIVITAMINS/MINERALS THERAP 1 TAB PO SCH (13:09)
[2020-03-29] MEDS: FOLIC ACID 1 MG TAB PO SCH (13:10)
[2020-03-29] MEDS: THIAMINE 100 MG TAB PO SCH ×2 (13:10→20:08)
[2020-03-29] MEDS: CETIRIZINE (ZyrTEC) 10 MG TAB PO SCH (13:10)
[2020-03-29] MEDS: NYSTATIN 100,000 UNITS/GM TOPICAL PWD 15 GM TOP SCH ×2 (13:35→20:08)
[2020-03-30 06:00] VITALS: BP 122/71
[2020-03-30] MEDS: THIAMINE 100 MG TAB PO SCH ×2 (14:18→21:00)
[2020-03-30] MEDS: ENOXAPARIN 40MG/0.4ML SYRINGE (J1650 PER 10MG) SC SCH (14:18)
[2020-03-30] MEDS: MULTIVITAMINS/MINERALS THERAP 1 TAB PO SCH (14:18)
[2020-03-30] MEDS: CETIRIZINE (ZyrTEC) 10 MG TAB PO SCH (14:18)
[2020-03-30] MEDS: FOLIC ACID 1 MG TAB PO SCH (14:18)
[2020-03-30] MEDS: NYSTATIN 100,000 UNITS/GM TOPICAL PWD 15 GM TOP SCH ×2 (14:19→21:00)
[2020-03-31 06:00] VITALS: BP 125/89
[2020-03-31] MEDS: THIAMINE 100 MG TAB PO SCH ×2 (12:09→20:07)
[2020-03-31] MEDS: ENOXAPARIN 40MG/0.4ML SYRINGE (J1650 PER 10MG) SC SCH (12:09)
[2020-03-31] MEDS: CETIRIZINE (ZyrTEC) 10 MG TAB PO SCH (12:09)
[2020-03-31] MEDS: MULTIVITAMINS/MINERALS THERAP 1 TAB PO SCH (12:09)
[2020-03-31] MEDS: FOLIC ACID 1 MG TAB PO SCH (12:09)
[2020-03-31] MEDS: NYSTATIN 100,000 UNITS/GM TOPICAL PWD 15 GM TOP SCH ×2 (12:12→20:07)
[2020-04-01 06:00] VITALS: BP 116/75
--- NOTE | 2020-04-01 12:22 | IPNPDOC ---
Date Seen The patient was seen on 04/01/20. Progress Note SUBJECTIVE:, Comfortable in bed, sleeping at this time, does not wish to be disturbed at this time. Unable to perform a thorough examination due to patient preference. He appears comfortable and stable at this time. LABORATORY DATA, IMAGING STUDIES, MICROBIOLOGY: Please see below. ASSESSMENT AND PLAN: 59-year-old male with past medical history of alcohol abuse, traumatic brain injury and encephalopathy who remains hospitalized due to issues with finding adequate placement. PROBLEMS: 1. Traumatic brain injury/encephalopathy. Worsened by chronic alcohol use. Has had multiple hospitalizations due to inability to care for himself and failure to thrive. Now having prolonged hospitalization because unable to find adequate placement options. Patient is comfortable, at baseline and hemodynamically stable, does not have any active medical issues that need management or monitoring at this time. 2. History of alcohol abuse. Has received adequate vitamins due to the prolonged hospitalization over the past 6+ months. Diet has also been appropriate as he has been cared for very well over this time. No need for supplementation currently DVT prophylaxis: Patient is ambulatory, without active medical issues and does not need any chemical prophylaxis at this time. VS, I&O, 24H, Fishbone Vital Signs/I&O Vital Signs Date Time Temp Pulse Resp B/P (MAP) Pulse Ox O2 Delivery O2 Flow Rate FiO2 04/01/20 06:00 98.3 70 20 116/75 (89) 96 03/31/20 06:00 Room Air I&O- Last 24 Hours up to 6 AM 04/01/20 06:00 Intake Total 1920 ml Output Total 1275 ml Balance 645 ml ANASTASIA SINGH MD Apr 01, 2020 12:22
[2020-04-01] MEDS: NYSTATIN 100,000 UNITS/GM TOPICAL PWD 15 GM TOP SCH ×2 (13:21→21:00)
[2020-04-01] MEDS ORDERED: ACETAMINOPHEN TAB 650MG DOSE (2X325MG) PO PRN (23:45)
[2020-04-02 06:00] VITALS: BP 133/80
[2020-04-02] MEDS: NYSTATIN 100,000 UNITS/GM TOPICAL PWD 15 GM TOP SCH ×2 (12:00→20:00)
[2020-04-02] MEDS: CETIRIZINE (ZyrTEC) 10 MG TAB PO SCH (16:19)
[2020-04-03 06:00] VITALS: BP 126/85
[2020-04-03] MEDS: CETIRIZINE (ZyrTEC) 10 MG TAB PO SCH (09:54)
[2020-04-03] MEDS: NYSTATIN 100,000 UNITS/GM TOPICAL PWD 15 GM TOP SCH ×2 (09:55→20:23)
[2020-04-04 06:00] VITALS: BP 117/66
[2020-04-04] MEDS: CETIRIZINE (ZyrTEC) 10 MG TAB PO SCH (09:49)
[2020-04-04] MEDS: NYSTATIN 100,000 UNITS/GM TOPICAL PWD 15 GM TOP SCH ×2 (11:08→21:59)
[2020-04-05 06:00] VITALS: BP 105/61
[2020-04-05] MEDS: CETIRIZINE (ZyrTEC) 10 MG TAB PO SCH (08:41)
[2020-04-05] MEDS ORDERED: NYST10006 TOP (11:01)
[2020-04-05] MEDS ORDERED: ACET1TAB55 PO (11:01)
[2020-04-05] MEDS ORDERED: CETI10TA PO (11:01)
--- NOTE | 2020-04-05 11:16 | DS.PDOC ---
Discharge Summary General Date of Admission Aug 25, 2019 at 13:02 Date of Discharge 04/05/20 Discharge Summary PROCEDURES PERFORMED DURING STAY: [None]. DISCHARGE DIAGNOSES: Dementia due to TBI and alcohol abuse h/o Alcohol abuse COMPLICATIONS/CHIEF COMPLAINT: Failure To Thrive. HOSPITAL COURSE: Patient is a 59-year-old male with a PMHx of Alcoholic dependence, Alcoholic liver disease, Hx of Alcohol withdrawal (Delirium / Seizures), Hx of intracranial hemorrhage 2/2 TBI 2/2 Intoxication, who presented to the hospital after he was found by his friend covered in feces. Patient was brought in by ambulance, and was found to be disoriented and confused. Patient had a CT scan completed of his head that was negative for any acute changes. Admitted for acute encephalopathy and failure to thrive. He was diagnosed with Wernicke- Korsakoff dementia. During the course of his long hospitalization he has gained weight and his albumin is better. His acute encephalopathy has resolved but continues to have dementia with good days and bad days. His strength has increased with good nutrition in hospital and he is now able to ambulate with walker with stand by assist. He does need frequent reminders and encouragement in performing his ADLS. Some days he would refuse to do his ADLS other days he is cooperative and can perform his ADLS with occasional help. Cognitive impairment Due to TBI from alcohol related falls and Wernicke-Korsakoff dementia At baseline Dementia with abnormal behavior continues to exhibit behavioral issues mostly verbal, no physical aggression and no wandering noted during the hospitalization. Failure to thrive Improving now with regular meals in hospital for the last several months. Improved albumin levels. H/o Anemia Had EGD in 2018 was negative for varices. Anemia has improved with good nutrition and lack of access to alcohol H/O Alcoholic dependence Hx of Alcohol withdrawal (Delirium / Seizures) and acute encephalopathy on initial admission refuses to take folate and thiamine so those have been stopped. TBI with intermittent dizziness Hx of intracranial hemorrhage 2/2 TBI 2/[address] head / MRI brain negative for acute changes DISCHARGE MEDICATIONS: Please see below. ALLERGIES: Please see below. PHYSICAL EXAMINATION ON DISCHARGE: VITAL SIGNS: Please see below. General: NAD, sitting comfortably in bed HEENT: PERRLA, EOMI, sclerae clear Neck: supple, normal ROM, no JVD Respiratory: lungs CTAB, no wheeze, no rales, no crackles CVS: RRR, normal S1, S2, no murmurs Abdo: soft, no masses, no hepatosplenomegaly, BS+, no rebound tenderness Extremities: no edema, pulses 2+ LABORATORY DATA: Please see below. IMAGING: PROGNOSIS: ACTIVITY: [As tolerated]. DIET: DISCHARGE PLAN: DISPOSITION: . DISCHARGE INSTRUCTIONS: 1. . ITEMS TO FOLLOWUP ON ON OUTPATIENT: 1. . DISCHARGE CONDITION: [Stable]. TIME SPENT ON DISCHARGE: Greater than minutes. Vital Signs/I&Os Vital Signs Date Time Temp Pulse Resp B/P (MAP) Pulse Ox O2 Delivery O2 Flow Rate FiO2 04/05/20 06:00 96.9 67 18 105/61 (76) 97 Room Air I&O- Last 24 Hours up to 6 AM 04/05/20 06:00 Intake Total 900 ml Output Total 1025 ml Balance -125 ml Laboratory Data Labs 24H Laboratory Tests 2 04/04/20 18:40: Coronavirus (COVID-19)(PCR) NEGATIVE CBC/BMP Item Value Date Time White Blood Count 4.8 10^3/uL 03/03/20 0931 Red Blood Count 4.90 10^6/uL 03/03/20 0931 Hemoglobin 13.9 g/dl 03/03/20 0931 Hematocrit 43.4 % 03/03/20 0931 Mean Corpuscular Volume 88.6 fl 03/03/20 0931 Mean Corpuscular Hemoglobin 28.4 pg 03/03/20 0931 Mean Corpuscular Hemoglobin Concent 32.0 g/dl 03/03/20 0931 Red Cell Distribution Width 13.2 % 03/03/20 0931 Platelet Count 211 10^3/uL 03/03/20 0931 Immature Granulocyte % (Auto) 0.4 % 03/03/20 0931 Sodium Level 137 MEQ/L 03/03/20 0931 Potassium Level 3.9 MEQ/L 03/03/20 0931 Chloride Level 102 MEQ/L 03/03/20 0931 Carbon Dioxide Level 27 MEQ/L 03/03/20 0931 Anion Gap 8 MEQ/L 03/03/20 0931 Blood Urea Nitrogen 22 MG/DL H 03/03/20 0931 Creatinine 1.41 MG/DL H 03/03/20 0931 Glomerular Filtration Rate 55.2 L 03/03/20 0931 Fasting Glucose 139 MG/DL H 03/03/20930 Calcium Level 9.5 MG/DL 03/03/20930 Total Bilirubin 0.9 MG/DL 03/03/20930 Aspartate Amino Transf (AST/SGOT) 16 U/L 03/03/20930 Alanine Aminotransferase (ALT/SGPT) 23 U/L 03/03/20930 Alkaline Phosphatase 126 U/L H 03/03/20930 Total Protein 7.6 GM/DL 03/03/20930 Albumin 4.0 GM/DL 03/03/20930 Albumin/Globulin Ratio 1.1 03/03/20930 Discharge Medications Scheduled Cetirizine HCl (Cetirizine HCl) 10 Mg Tablet, 10 MG PO DAILY Nystatin (Nystop) 60 Gm Powder, 0 DOSE TOP BID@1200,2100 Scheduled PRN Acetaminophen (Acetaminophen) 325 Mg Tablet, 650 MG PO Q6HP PRN for PAIN / FEVER Allergies Coded Allergies: ceftriaxone (Verified Adverse Reaction, Intermediate, FEELS LIKE "PASSING OUT", 08/17/18) RUY ADRIAN MD Apr 05, 2020 11:16
[2020-04-05] MEDS: NYSTATIN 100,000 UNITS/GM TOPICAL PWD 15 GM TOP SCH (12:00)
== END 2020-04-05 14:47 | DRG 71 ==
LOC: EDBD 15:50 → M ED 15:50 → M ED INP 19:20 → ENRESERV 08-25 04:45 → M PCU 08-25 06:30 → OBSVTOIN 08-25 13:02 → M MSPAV 08-26 22:50
PROVIDERS: ADMIT Internal Medicine; ATTEND Internal Medicine Nephrology
DX: G93.40 Encephalopathy, unspecified (principal); F10.27 Alcohol dependence with alcohol-induced persisting dementia; E87.6 Hypokalemia; Z88.8 Allergy status to other drugs, medicaments and biological substances; K70.30 Alcoholic cirrhosis of liver without ascites; Z87.828 Personal history of other (healed) physical injury and trauma; R62.7 Adult failure to thrive; E83.42 Hypomagnesemia; D64.9 Anemia, unspecified; F10.26 Alcohol dependence with alcohol-induced persisting amnestic disorder; G93.89 Other specified disorders of brain; K70.10 Alcoholic hepatitis without ascites; G62.9 Polyneuropathy, unspecified; Z91.14 Patient's other noncompliance with medication regimen; R19.7 Diarrhea, unspecified

== ENCOUNTER → 2021-11-22 | Outpatient (CLI) | payer OTHER ==
[~2021-11-22] MED LIST changes: +CETI10TA PO; -FOLIC ACID 1 MG TAB PO SCH; -LISI2.5T2 PO; +LISI2.5T9 PO; +NYST10006 TOP
== END ==
LOC: M RAD 14:47
PROVIDERS: ATTEND Internal Medicine
DX: M51.26 Other intervertebral disc displacement, lumbar region (principal); M51.36 Other intervertebral disc degeneration, lumbar region; M54.16 Radiculopathy, lumbar region

== ENCOUNTER → 2023-03-05 | Outpatient (CLI) | payer OTHER ==
[~2023-03-05] MED LIST changes: +CYAN-1; -CYAN100050; +EZET10TA58 PO; +KEPP1TAB2 PO; +OMEP-173 PO; +PATIENT COMMENT; +POTA-298 PO; -POTA1TAB14 PO; +PRES10CA2 PO; +PROB250C PO; +SENN-111 PO; -SENN18TA PO; +VITA100093 PO
== END ==
LOC: M RAD 08:58
PROVIDERS: ATTEND Internal Medicine
DX: R80.0 Isolated proteinuria (principal)

== ENCOUNTER → 2023-03-09 | Outpatient (CLI) | payer OTHER | LOC: M RAD 12:45 | PROVIDERS: ATTEND Internal Medicine | DX: M25.559 Pain in unspecified hip (principal); Z53.9 Procedure and treatment not carried out, unspecified reason ==

== ENCOUNTER 2023-03-15 18:07 | Emergency (ER) | payer OTHER ==
[~2023-03-15] VITALS: Ht 185.4 cm; Wt 86.4 kg
[2023-03-15 18:16] VITALS: BP 160/99; TEMP 97.5; O2SAT 100
== END 2023-03-15 20:03 | disposition left against medical advice (07) ==
LOC: M ED 18:07 → EDBD 18:07 → M ED 20:03
DX: Z53.21 Procedure and treatment not carried out due to patient leaving prior to being seen by health care provider (principal)

== ENCOUNTER 2023-03-19 13:08 | Emergency (ER) | payer OTHER ==
[~2023-03-19] VITALS: Ht 185.4 cm; Wt 83.9 kg
[2023-03-19 16:35] LABS: BASO % 0.4 % (0.0-1.0); EOS # 0.1 10^3/uL (0.0-0.5); EOS % 1.1 % (0.0-3.0); HEMATOCRIT 40.1 % (42.0-52.0); HEMOGLOBIN 12.6 g/dl (13.5-17.5); LYMPH # 0.9 10^3/uL (1.5-5.0); LYMPH % 16.2 % (24.0-44.0); MEAN CORPUSCULAR HEMOGLOBIN 29.3 pg (27.0-33.0); MEAN CORPUSCULAR HGB CONC 31.4 g/dl (32.0-36.5); MEAN CORPUSCULAR VOLUME 93.3 fl (80.0-96.0); MONO # 0.2 10^3/uL (0.0-0.8); MONO % 4.1 % (2.0-8.0); NEUTROPHILS # 4.2 10^3/uL (1.5-8.5); NEUTROPHILS % 77.8 % (36.0-66.0); PLATELET COUNT, AUTOMATED 129 10^3/uL (150-450); WHITE BLOOD COUNT 5.4 10^3/uL (4.0-10.0)
[2023-03-19 16:43] LABS: ERYTHROCYTE SEDIMENTATION RATE 46 mm/hr (0-20)
[2023-03-19 17:07] LABS: RSV AMPLIFICATION NEGATIVE (NEGATIVE)
[2023-03-19 17:11] LABS: BLOOD UREA NITROGEN 20 MG/DL (9-23); CALCIUM LEVEL 8.8 MG/DL (8.3-10.6); CARBON DIOXIDE LEVEL 30 MMOL/L (20-31); CHLORIDE LEVEL 102 MMOL/L (98-107); CREATININE FOR GFR 1.07 MG/DL (0.70-1.30); GLOMERULAR FILTRATION RATE > 60.0 (>49); GLUCOSE, FASTING 143 MG/DL (74-106); MAGNESIUM LEVEL 1.7 MG/DL (1.8-2.4); POTASSIUM SERUM 3.8 MMOL/L (3.5-5.1); SODIUM LEVEL 138 MMOL/L (136-145)
[2023-03-19] MEDS ORDERED: MECL-209 PO (18:49)
[2023-03-19] MEDS ORDERED: physical therapy (18:52)
[2023-03-19 19:23] VITALS: BP 157/87; TEMP 98.4; O2SAT 98
== END 2023-03-19 19:24 | disposition home or self-care (01) ==
LOC: M ED 13:08
DX: R42 Dizziness and giddiness (principal); G93.40 Encephalopathy, unspecified; R56.9 Unspecified convulsions; F17.200 Nicotine dependence, unspecified, uncomplicated; Z79.899 Other long term (current) drug therapy; Z88.1 Allergy status to other antibiotic agents

== ENCOUNTER 2023-04-15 02:57 | Emergency (ER) | payer OTHER ==
[~2023-04-15] VITALS: Ht 185.4 cm; Wt 85.3 kg
[~2023-04-15 02:57] MED LIST changes: +MECL-209 PO; +physical therapy
[2023-04-15 04:37] LABS: AMPHETAMINES LEVEL URINE NEGATIVE (NEGATIVE); BARBITURATES URINE NEGATIVE (NEGATIVE); BENZODIAZEPINES URINE NEGATIVE (NEGATIVE); CANNABINOIDS URINE NEGATIVE (NEGATIVE); COCAINE METABOLITE URINE NEGATIVE (NEGATIVE); METHADONE URINE NEGATIVE (NEGATIVE); OPIATES URINE NEGATIVE (NEGATIVE)
[2023-04-15 04:40] LABS: ETHYL ALCOHOL (ETHANOL) 0.256 % (0.000-0.010)
[2023-04-15 04:40] LABS: HEMATOCRIT 44.2 % (42.0-52.0); HEMOGLOBIN 14.3 g/dl (13.5-17.5); MEAN CORPUSCULAR HEMOGLOBIN 29.5 pg (27.0-33.0); MEAN CORPUSCULAR HGB CONC 32.4 g/dl (32.0-36.5); MEAN CORPUSCULAR VOLUME 91.1 fl (80.0-96.0); RED BLOOD COUNT 4.85 10^6/uL (4.30-6.10); WHITE BLOOD COUNT 3.7 10^3/uL (4.0-10.0)
[2023-04-15 04:41] LABS: SALICYLATE LEVEL < 3.0 MG/DL (<30)
[2023-04-15 04:44] LABS: THYROID STIMULATING HORMONE 1.818 uIU/ML (0.55-4.78)
[2023-04-15 04:49] LABS: PHENCYCLIDINE URINE NEGATIVE (NEGATIVE)
[2023-04-15 05:13] LABS: ALBUMIN 4.3 G/DL (3.2-5.2); ALKALINE PHOSPHATASE 132 U/L (46-116); AST/SGOT 247 U/L (<34); BILIRUBIN,DIRECT 0.3 MG/DL (<0.4); BILIRUBIN,TOTAL 1.1 MG/DL (0.3-1.2); CALCIUM LEVEL 8.7 MG/DL (8.3-10.6); CARBON DIOXIDE LEVEL 18 MMOL/L (20-31); CHLORIDE LEVEL 100 MMOL/L (98-107); CREATININE FOR GFR 1.09 MG/DL (0.70-1.30); GLOMERULAR FILTRATION RATE > 60.0 (>49); GLUCOSE, FASTING 97 MG/DL (74-106); SODIUM LEVEL 138 MMOL/L (136-145); TOTAL PROTEIN 8.3 G/DL (5.7-8.2)
[2023-04-15 05:27] LABS: PLATELET COUNT, AUTOMATED 89 10^3/uL (150-450)
[2023-04-15] MEDS ORDERED: LORazepam 2 MG TAB PO PRN (06:40)
[2023-04-15] MEDS: METOPROLOL 5 MG/5 ML VIAL IV SCH (07:00)
[2023-04-15] MEDS: NS 1,000 ML IV ONE (07:01)
[2023-04-15] MEDS: FOLIC ACID 1MG TAB PO SCH (08:04)
[2023-04-15] MEDS: THIAMINE 100 MG TAB PO SCH (08:04)
[2023-04-15] MEDS: MULTIVITAMINS/MINERALS THERAP 1 TAB PO SCH (08:04)
[2023-04-15 08:05] LABS: VENOUS BASE EXCESS -4.6 (-2.0-2.0); VENOUS HCO3 20.3 MMOL/L (23.0-27.0); VENOUS O2 SATURATION 92.9 % (60.0-80.0); VENOUS PARTIAL PRESSURE CO2 36.9 mmHg (38.0-50.0); VENOUS PARTIAL PRESSURE O2 68.8 mmHg (30.0-50.0); VENOUS PH 7.358 UNITS (7.330-7.430); VENOUS STANDARD HCO3 20.6 MMOL/L; VENOUS TOTAL CO2 21.4 MMOL/L (24.0-28.0)
[2023-04-15 08:24] LABS: POTASSIUM SERUM 4.8 MMOL/L (3.5-5.1)
[2023-04-15 08:31] LABS: ETHYL ALCOHOL (ETHANOL) 0.171 % (0.000-0.010)
[2023-04-15 10:48] VITALS: BP 154/80; TEMP 97.8; O2SAT 96
[2023-04-15] MEDS ORDERED: MAGN400T35 PO (22:49)
[2023-04-15] MEDS ORDERED: MULT-40 PO (22:49)
[2023-04-15] MEDS ORDERED: KEPP1TAB2 PO (22:49)
[2023-04-15] MEDS ORDERED: RAMI1CAP22 PO (22:49)
[2023-04-15] MEDS ORDERED: RISATAB3 PO (22:49)
[2023-04-15] MEDS ORDERED: MECL-86 PO (22:49)
[2023-04-15] MEDS ORDERED: PERI12LIQ SSP (22:49)
== END 2023-04-15 11:03 | disposition home or self-care (01) ==
LOC: M ED 02:57
DX: F10.10 Alcohol abuse, uncomplicated (principal); K70.30 Alcoholic cirrhosis of liver without ascites; Z79.899 Other long term (current) drug therapy; Z88.1 Allergy status to other antibiotic agents

== ENCOUNTER 2023-04-15 17:38 | Inpatient (IN) | payer OTHER ==
[~2023-04-15] VITALS: Ht 185.4 cm; Wt 83.7 kg
[2023-04-15 18:28] LABS: BASO % 0.3 % (0.0-1.0); HEMATOCRIT 41.4 % (42.0-52.0); LYMPH # 0.2 10^3/uL (1.5-5.0); LYMPH % 2.1 % (24.0-44.0); MEAN CORPUSCULAR HEMOGLOBIN 29.3 pg (27.0-33.0); MEAN CORPUSCULAR HGB CONC 31.4 g/dl (32.0-36.5); MEAN CORPUSCULAR VOLUME 93.2 fl (80.0-96.0); MONO # 0.2 10^3/uL (0.0-0.8); MONO % 1.9 % (2.0-8.0); NEUTROPHILS # 8.7 10^3/uL (1.5-8.5); NEUTROPHILS % 95.4 % (36.0-66.0); RED BLOOD COUNT 4.44 10^6/uL (4.30-6.10); WHITE BLOOD COUNT 9.1 10^3/uL (4.0-10.0)
[2023-04-15 18:31] LABS: PLATELET COUNT, AUTOMATED 90 10^3/uL (150-450)
[2023-04-15] MEDS: levETIRAcetam INJection 1,000 MG in D5W 100 ML IV ONE (18:34)
[2023-04-15] MEDS: METOPROLOL 5 MG/5 ML VIAL IV SCH (18:37)
[2023-04-15 18:44] LABS: INR 1.02; PARTIAL THROMBOPLASTIN TIME 24.3 SECONDS (24.8-34.2); PROTHROMBIN TIME 13.1 SECONDS (12.5-14.5)
[2023-04-15 18:53] LABS: ETHYL ALCOHOL (ETHANOL) < 0.003 % (0.000-0.010)
[2023-04-15 18:54] LABS: MAGNESIUM LEVEL 3.6 MG/DL (1.8-2.4); PHOSPHORUS LEVEL 5.3 MG/DL (2.4-5.1)
[2023-04-15 18:57] LABS: THYROID STIMULATING HORMONE 3.356 uIU/ML (0.55-4.78)
[2023-04-15 18:58] LABS: FREE T4 0.95 NG/DL (0.89-1.76)
[2023-04-15 19:00] LABS: ALBUMIN 4.1 G/DL (3.2-5.2); BILIRUBIN,DIRECT 0.4 MG/DL (<0.4); BILIRUBIN,TOTAL 1.6 MG/DL (0.3-1.2); CK-MB VALUE MASS 5.7 NG/ML (<3.6); CREATININE FOR GFR 1.32 MG/DL (0.70-1.30); GLOMERULAR FILTRATION RATE 58.9 (>49); MB/CK RELATIVE INDEX 2.46 (< OR =4); POTASSIUM SERUM 5.9 MMOL/L (3.5-5.1); TOTAL PROTEIN 7.8 G/DL (5.7-8.2)
[2023-04-15 19:10] LABS: RSV AMPLIFICATION NEGATIVE (NEGATIVE)
[2023-04-15] MEDS: MULTIVITAMIN -ADULT INJECTION 10 ML, THIAMINE INJection 100 MG, FOLIC ACID 1 MG in NS 1... IV ONE (19:17)
[2023-04-15 19:47] LABS: ABG HCO3 18.2 MMOL/L (22.0-26.0); ABG O2 SATURATION 95.9 % (95.0-99.0); ABG PARTIAL PRESSURE CO2 29.1 mmHg (35.0-45.0); ABG PARTIAL PRESSURE O2 76.8 mmHg (75.0-100.0); ABG STANDARD HCO3 20.3 MMOL/L. (22.0-26.0); ABG TOTAL CO2 19.1 MMOL/L (23.0-31.0); ABG pH (ARTERIAL) 7.415 UNITS (7.350-7.450)
[2023-04-15 20:02] LABS: AMPHETAMINES LEVEL URINE NEGATIVE (NEGATIVE); BARBITURATES URINE NEGATIVE (NEGATIVE); BENZODIAZEPINES URINE NEGATIVE (NEGATIVE); CANNABINOIDS URINE NEGATIVE (NEGATIVE); COCAINE METABOLITE URINE NEGATIVE (NEGATIVE); METHADONE URINE NEGATIVE (NEGATIVE); OPIATES URINE NEGATIVE (NEGATIVE); PHENCYCLIDINE URINE NEGATIVE (NEGATIVE)
[2023-04-15 20:05] LABS: CK-MB VALUE MASS 5.5 NG/ML (<3.6)
[2023-04-15 20:08] LABS: MB/CK RELATIVE INDEX 2.42 (< OR =4)
[2023-04-15] MEDS: OXAZEPAM 15MG CAP PO ONE (20:25)
[2023-04-15] MEDS ORDERED: MOM 30ML SUSPENSION UDC PO PRN (21:40)
[2023-04-15] MEDS ORDERED: LORazepam 2 MG TAB PO PRN (21:40)
[2023-04-15] MEDS ORDERED: ACETAMINOPHEN TAB 650MG DOSE (2X325MG) PO PRN (21:40)
[2023-04-15] MEDS ORDERED: MULT-40 PO (22:49)
[2023-04-15] MEDS ORDERED: MECL-86 PO (22:49)
[2023-04-15] MEDS ORDERED: MAGN400T35 PO (22:49)
[2023-04-15] MEDS ORDERED: RAMI1CAP22 PO (22:49)
[2023-04-15] MEDS ORDERED: RISATAB3 PO (22:49)
[2023-04-15] MEDS ORDERED: PERI12LIQ SSP (22:49)
[2023-04-15] MEDS ORDERED: KEPP1TAB2 PO (22:49)
[2023-04-15] MEDS ORDERED: HOME MED LIST COMPLETE! XX SCH (22:50)
[2023-04-16] VITALS (11 sets, daily range): BP systolic 123–165; BP diastolic 66–83; TEMP 97.7–99.4; O2SAT 97–98
[2023-04-16 00:34] LABS: BLOOD UREA NITROGEN 48 MG/DL (9-23); CALCIUM LEVEL 8.3 MG/DL (8.3-10.6); CARBON DIOXIDE LEVEL 22 MMOL/L (20-31); CHLORIDE LEVEL 101 MMOL/L (98-107); CREATININE FOR GFR 1.14 MG/DL (0.70-1.30); GLOMERULAR FILTRATION RATE > 60.0 (>49); GLUCOSE, FASTING 112 MG/DL (74-106); POTASSIUM SERUM 4.6 MMOL/L (3.5-5.1); SODIUM LEVEL 138 MMOL/L (136-145)
[2023-04-16] MEDS: LR 1,000 ML IV SCH (00:39)
[2023-04-16 05:14] LABS: HEMATOCRIT 37.2 % (42.0-52.0); MEAN CORPUSCULAR HEMOGLOBIN 29.4 pg (27.0-33.0); MEAN CORPUSCULAR HGB CONC 32.3 g/dl (32.0-36.5); MEAN CORPUSCULAR VOLUME 91.2 fl (80.0-96.0); RED BLOOD COUNT 4.08 10^6/uL (4.30-6.10); WHITE BLOOD COUNT 6.9 10^3/uL (4.0-10.0)
[2023-04-16 05:15] LABS: PLATELET COUNT, AUTOMATED 71 10^3/uL (150-450)
[2023-04-16 06:00] LABS: ALBUMIN 3.7 G/DL (3.2-5.2); ALKALINE PHOSPHATASE 113 U/L (46-116); ALT/SGPT 73 U/L (7.0-40); AST/SGOT 110 U/L (<34); BILIRUBIN,TOTAL 1.8 MG/DL (0.3-1.2); BLOOD UREA NITROGEN 44 MG/DL (9-23); CALCIUM LEVEL 8.3 MG/DL (8.3-10.6); CARBON DIOXIDE LEVEL 23 MMOL/L (20-31); CHLORIDE LEVEL 104 MMOL/L (98-107); CREATININE FOR GFR 1.11 MG/DL (0.70-1.30); GLOMERULAR FILTRATION RATE > 60.0 (>49); GLUCOSE, FASTING 112 MG/DL (74-106); MAGNESIUM LEVEL 2.7 MG/DL (1.8-2.4); POTASSIUM SERUM 4.1 MMOL/L (3.5-5.1); SODIUM LEVEL 138 MMOL/L (136-145); TOTAL PROTEIN 6.9 G/DL (5.7-8.2)
[2023-04-16] MEDS: THIAMINE 100 MG TAB PO SCH (08:22)
[2023-04-16] MEDS: MULTIVITAMINS/MINERALS THERAP 1 TAB PO SCH (08:23)
[2023-04-16] MEDS: FOLIC ACID 1MG TAB PO SCH (08:23)
[2023-04-16] MEDS ORDERED: ENOXAPARIN 40MG/0.4ML SYRINGE (J1650 PER 10MG) SC SCH (09:00)
[2023-04-16] MEDS: HEPARIN SOD (PORCINE) 5000UNITS/ML 1ML VIAL/SYRINGE SQ SCH (09:00)
[2023-04-16 12:29] LABS: HEPATITIS C VIRUS ABY INDEX 0.04 INDEX (<0.8)
[2023-04-16 12:30] LABS: HEPATITIS B CORE ANTIBODY IGM NEGATIVE (NEGATIVE)
[2023-04-16] MEDS: VITAMIN D 1,000 INTERNATIONAL UNITS TABLET PO SCH (13:39)
[2023-04-16] MEDS: levETIRAcetam 250MG TABLET (KEPPRA) PO SCH (13:40)
[2023-04-16] MEDS: EZETIMIBE 10MG TABLET (ZETIA) PO SCH (13:40)
[2023-04-16] MEDS: PANTOPRAZOLE 40MG TAB (PROTONIX) PO SCH (13:40)
[2023-04-16] MEDS: THIAMINE INJection 500 MG in NS 100 ML IV SCH (15:58)
[2023-04-16] MEDS: METOPROLOL TART 25 MG TABLET PO SCH (20:34)
[2023-04-17] VITALS (10 sets, daily range): BP systolic 113–160; BP diastolic 74–96; TEMP 97.7–98.4; O2SAT 95–99
[2023-04-17 05:28] LABS: BASO % 0.5 % (0.0-1.0); EOS # 0.1 10^3/uL (0.0-0.5); EOS % 3.8 % (0.0-3.0); HEMATOCRIT 34.6 % (42.0-52.0); LYMPH # 0.6 10^3/uL (1.5-5.0); LYMPH % 15.4 % (24.0-44.0); MEAN CORPUSCULAR HEMOGLOBIN 29.4 pg (27.0-33.0); MEAN CORPUSCULAR HGB CONC 31.8 g/dl (32.0-36.5); MEAN CORPUSCULAR VOLUME 92.5 fl (80.0-96.0); MONO # 0.2 10^3/uL (0.0-0.8); MONO % 4.3 % (2.0-8.0); NEUTROPHILS # 2.8 10^3/uL (1.5-8.5); NEUTROPHILS % 75.7 % (36.0-66.0); RED BLOOD COUNT 3.74 10^6/uL (4.30-6.10); WHITE BLOOD COUNT 3.7 10^3/uL (4.0-10.0)
[2023-04-17 05:29] LABS: PLATELET COUNT, AUTOMATED 49 10^3/uL (150-450)
[2023-04-17 05:59] LABS: ALBUMIN 2.9 G/DL (3.2-5.2); ALKALINE PHOSPHATASE 101 U/L (46-116); ALT/SGPT 48 U/L (7.0-40); AST/SGOT 61 U/L (<34); BILIRUBIN,TOTAL 1.4 MG/DL (0.3-1.2); BLOOD UREA NITROGEN 32 MG/DL (9-23); CALCIUM LEVEL 8.5 MG/DL (8.3-10.6); CARBON DIOXIDE LEVEL 27 MMOL/L (20-31); CHLORIDE LEVEL 104 MMOL/L (98-107); GLOMERULAR FILTRATION RATE > 60.0 (>49); GLUCOSE, FASTING 146 MG/DL (74-106); POTASSIUM SERUM 3.3 MMOL/L (3.5-5.1); SODIUM LEVEL 137 MMOL/L (136-145); TOTAL PROTEIN 5.8 G/DL (5.7-8.2)
[2023-04-17] MEDS: POTASSIUM CHLORIDE 10MEQ SR TABLET PO ONE (08:49)
[2023-04-17] MEDS: ASPIRIN 81MG ENTERIC TABLET PO SCH (08:50)
[2023-04-18 06:09] VITALS: BP 142/88; TEMP 98.1; O2SAT 98
[2023-04-18 06:25] LABS: BLOOD UREA NITROGEN 23 MG/DL (9-23); CALCIUM LEVEL 8.4 MG/DL (8.3-10.6); CARBON DIOXIDE LEVEL 28 MMOL/L (20-31); CHLORIDE LEVEL 102 MMOL/L (98-107); CREATININE FOR GFR 0.94 MG/DL (0.70-1.30); GLOMERULAR FILTRATION RATE > 60.0 (>49); GLUCOSE, FASTING 156 MG/DL (74-106); POTASSIUM SERUM 3.4 MMOL/L (3.5-5.1); SODIUM LEVEL 133 MMOL/L (136-145)
[2023-04-18 06:46] LABS: BASO % 0.6 % (0.0-1.0); EOS # 0.1 10^3/uL (0.0-0.5); EOS % 4.1 % (0.0-3.0); HEMATOCRIT 34.3 % (42.0-52.0); LYMPH # 0.8 10^3/uL (1.5-5.0); LYMPH % 23.8 % (24.0-44.0); MEAN CORPUSCULAR HEMOGLOBIN 29.6 pg (27.0-33.0); MEAN CORPUSCULAR HGB CONC 32.1 g/dl (32.0-36.5); MEAN CORPUSCULAR VOLUME 92.2 fl (80.0-96.0); MONO # 0.2 10^3/uL (0.0-0.8); MONO % 6.1 % (2.0-8.0); NEUTROPHILS # 2.2 10^3/uL (1.5-8.5); NEUTROPHILS % 64.5 % (36.0-66.0); RED BLOOD COUNT 3.72 10^6/uL (4.30-6.10); WHITE BLOOD COUNT 3.5 10^3/uL (4.0-10.0)
[2023-04-18 06:47] LABS: PLATELET COUNT, AUTOMATED 52 10^3/uL (150-450)
[2023-04-18 08:07] LABS: MAGNESIUM LEVEL 1.5 MG/DL (1.8-2.4)
[2023-04-18 08:15] VITALS: BP 148/94
[2023-04-18 08:18] VITALS: BP 148/94
[2023-04-18] MEDS ORDERED: ASPI81TAEC PO (10:39)
[2023-04-18] MEDS ORDERED: OMEP-173 PO (10:45)
[2023-04-18] MEDS ORDERED: FOLI1TAB11 PO (10:45)
[2023-04-18] MEDS ORDERED: MAGN400T35 PO (10:45)
[2023-04-18] MEDS ORDERED: THIA100T7 PO (10:45)
[2023-04-18] MEDS ORDERED: POTA-136 PO (10:45)
[2023-04-18] MEDS: MAG SULF 1GM/100ML (MAG RUN) 1 GM in IV 1 EA IV SCH (10:46)
[2023-04-18] MEDS: POTASSIUM CHLORIDE 10MEQ SR TABLET PO ONE (10:47)
== END 2023-04-18 13:39 | disposition home or self-care (01) | DRG 897 ==
LOC: EDBD 17:38 → M ED 17:38 → M ED INP 21:40 → ENRESERV 04-16 00:17 → M ICU 04-16 01:03 → M MSPAV 04-17 15:13
PROVIDERS: ADMIT Internal Medicine; ATTEND Internal Medicine
DX: F10.231 Alcohol dependence with withdrawal delirium (principal); I48.92 Unspecified atrial flutter; E51.2 Wernicke's encephalopathy; G40.909 Epilepsy, unspecified, not intractable, without status epilepticus; K70.10 Alcoholic hepatitis without ascites; K21.9 Gastro-esophageal reflux disease without esophagitis; K74.60 Unspecified cirrhosis of liver; D69.6 Thrombocytopenia, unspecified; E55.9 Vitamin D deficiency, unspecified; E87.6 Hypokalemia; Z86.73 Personal history of transient ischemic attack (TIA), and cerebral infarction without residual deficits; Z11.52 Encounter for screening for COVID-19; Z79.899 Other long term (current) drug therapy; Z88.8 Allergy status to other drugs, medicaments and biological substances; E83.42 Hypomagnesemia

== ENCOUNTER 2023-10-11 07:46 | Inpatient (IN) | payer OTHER ==
[~2023-10-11] VITALS: Ht 185.4 cm; Wt 93.0 kg
[~2023-10-11 07:46] MED LIST changes: +ASPI81TAEC PO; +MULT-40 PO; +PERI12LIQ SSP; +POTA-136 PO; +RAMI2.5C42 PO; +RISATAB3 PO
[2023-10-11] MEDS: NS 1,000 ML IV ONE (08:35)
[2023-10-11 09:18] LABS: BASO # 0.1 10^3/uL (0.0-0.2); BASO % 1.1 % (0.0-1.0); EOS % 0.2 % (0.0-3.0); HEMATOCRIT 51.6 % (42.0-52.0); HEMOGLOBIN 16.2 g/dl (13.5-17.5); LYMPH # 0.9 10^3/uL (1.5-5.0); LYMPH % 8.8 % (24.0-44.0); MEAN CORPUSCULAR HEMOGLOBIN 32.3 pg (27.0-33.0); MEAN CORPUSCULAR HGB CONC 31.4 g/dl (32.0-36.5); MEAN CORPUSCULAR VOLUME 102.8 fl (80.0-96.0); MONO # 0.4 10^3/uL (0.0-0.8); MONO % 3.9 % (2.0-8.0); NEUTROPHILS # 8.8 10^3/uL (1.5-8.5); NEUTROPHILS % 85.6 % (36.0-66.0); PLATELET COUNT, AUTOMATED 245 10^3/uL (150-450); RED BLOOD COUNT 5.02 10^6/uL (4.30-6.10); WHITE BLOOD COUNT 10.2 10^3/uL (4.0-10.0)
[2023-10-11 09:38] LABS: LIPASE 19 U/L (12-53)
[2023-10-11 09:41] LABS: ALBUMIN 4.2 G/DL (3.2-5.2); ALKALINE PHOSPHATASE 152 U/L (46-116); ALT/SGPT 80 U/L (7.0-40); AST/SGOT 121 U/L (<34); BILIRUBIN,DIRECT 0.3 MG/DL (<0.4); BILIRUBIN,TOTAL 0.8 MG/DL (0.3-1.2); BLOOD UREA NITROGEN 41 MG/DL (9-23); CALCIUM LEVEL 9.5 MG/DL (8.3-10.6); CARBON DIOXIDE LEVEL < 10.0 MMOL/L (20-31); CHLORIDE LEVEL 103 MMOL/L (98-107); CREATININE FOR GFR 1.64 MG/DL (0.70-1.30); GLOMERULAR FILTRATION RATE 45.8 (>49); GLUCOSE, FASTING 68 MG/DL (74-106); MAGNESIUM LEVEL 2.2 MG/DL (1.8-2.4); POTASSIUM SERUM 4.8 MMOL/L (3.5-5.1); SODIUM LEVEL 141 MMOL/L (136-145); TOTAL PROTEIN 8.3 G/DL (5.7-8.2)
[2023-10-11 09:45] LABS: ETHYL ALCOHOL (ETHANOL) 0.153 % (0.000-0.010)
[2023-10-11] MEDS: NS 2,450 ML in IV 1 EA IV ONE (10:29)
[2023-10-11 10:35] LABS: VENOUS BASE EXCESS -19.8 (-2.0-2.0); VENOUS HCO3 9.5 MMOL/L (23.0-27.0); VENOUS O2 SATURATION 70.2 % (60.0-80.0); VENOUS PH 7.066 UNITS (7.330-7.430); VENOUS STANDARD HCO3 10.2 MMOL/L; VENOUS TOTAL CO2 10.6 MMOL/L (24.0-28.0)
[2023-10-11 10:53] LABS: INR 0.98; PARTIAL THROMBOPLASTIN TIME 22.5 SECONDS (24.8-34.2); PROTHROMBIN TIME 12.7 SECONDS (12.5-14.5)
[2023-10-11] MEDS: PIPERACILLIN/TAZOBACTAM SOD 4.5 GM in D5W MINI-BAG PLUS 50 ML IV ONE (11:02)
[2023-10-11 11:05] LABS: C REACTIVE PROTEIN QUANTITATIV < 0.40 MG/DL (<1.0)
[2023-10-11 11:14] LABS: PROCALCITONIN 0.18 ng/ml
[2023-10-11 11:54] LABS: OSMOLALITY SERUM 340 MOSM/KG (275-295)
[2023-10-11 12:16] LABS: PHOSPHORUS LEVEL 8.2 MG/DL (2.4-5.1)
[2023-10-11 12:18] LABS: APPEARANCE, URINE HAZY (CLEAR); BACTERIA, URINE AUTO NEGATIVE (NEGATIVE); BILIRUBIN, URINE AUTO NEGATIVE (NEGATIVE); BLOOD, URINE BLOOD 1+ (NEGATIVE); COLOR, URINE YELLOW (YELLOW); GLUCOSE, URINE (UA) AUTO NEGATIVE (NEGATIVE); KETONE, URINE AUTO 1+ mg/dL (NEGATIVE); LEUKOCYTE ESTERASE, URINE AUTO NEGATIVE (NEGATIVE); NITRITE, URINE AUTO NEGATIVE (NEGATIVE); PROTEIN, URINE AUTO 2+ mg/dL (NEGATIVE); RBC, URINE AUTO 1 /HPF (0-3); SPECIFIC GRAVITY URINE AUTO 1.015 (1.002-1.035); SQUAMOUS EPITHELIAL CELL UR AU 0 /HPF (0-6); UROBILINOGEN, URINE AUTO 0.2 mg/dL (0.0-2.0); WBC, URINE AUTO 1 /HPF (0-3)
[2023-10-11 12:21] LABS: ACETONE/KETONE > 4.50 MMOL/L (0.02-0.27)
[2023-10-11] MEDS ORDERED: ISOVUE-370 76% 100ML VIAL As Ordered ONE (12:35)
[2023-10-11 12:38] LABS: AMPHETAMINES LEVEL URINE NEGATIVE (NEGATIVE); BARBITURATES URINE NEGATIVE (NEGATIVE); BENZODIAZEPINES URINE NEGATIVE (NEGATIVE); CANNABINOIDS URINE NEGATIVE (NEGATIVE); COCAINE METABOLITE URINE NEGATIVE (NEGATIVE); METHADONE URINE NEGATIVE (NEGATIVE); OPIATES URINE NEGATIVE (NEGATIVE); PHENCYCLIDINE URINE NEGATIVE (NEGATIVE)
[2023-10-11] MEDS: KCL 20MEQ IN D5/0.45NS 1000ML 1,000 ML IV SCH (13:22)
[2023-10-11 14:15] LABS: VENOUS BASE EXCESS -19.7 (-2.0-2.0); VENOUS HCO3 8.1 MMOL/L (23.0-27.0); VENOUS O2 SATURATION 92.6 % (60.0-80.0); VENOUS PARTIAL PRESSURE CO2 25.6 mmHg (38.0-50.0); VENOUS PARTIAL PRESSURE O2 69.6 mmHg (30.0-50.0); VENOUS PH 7.117 UNITS (7.330-7.430); VENOUS STANDARD HCO3 10.3 MMOL/L; VENOUS TOTAL CO2 8.9 MMOL/L (24.0-28.0)
[2023-10-11 14:53] LABS: SALICYLATE LEVEL < 3.0 MG/DL (<30)
[2023-10-11 15:00] LABS: BLOOD UREA NITROGEN 38 MG/DL (9-23); CALCIUM LEVEL 7.7 MG/DL (8.3-10.6); CARBON DIOXIDE LEVEL < 10.0 MMOL/L (20-31); CHLORIDE LEVEL 105 MMOL/L (98-107); GLOMERULAR FILTRATION RATE 47.2 (>49); GLUCOSE, FASTING 96 MG/DL (74-106); POTASSIUM SERUM 5.7 MMOL/L (3.5-5.1); SODIUM LEVEL 138 MMOL/L (136-145)
[2023-10-11] MEDS: D5W/0.45% SODIUM CHLORIDE 1,000 ML IV ONE (16:09)
[2023-10-11] MEDS ORDERED: HOME MED LIST COMPLETE! XX SCH (17:50)
[2023-10-11] MEDS ORDERED: LORazepam 2 MG TAB PO PRN ×2 (18:05→22:40)
[2023-10-11] MEDS: METOCLOPRAMIDE INJ 10MG/2ML VIAL IV ONE (18:41)
[2023-10-11] MEDS: FOLIC ACID 1MG TAB PO SCH (18:42)
[2023-10-11] MEDS: LORazepam 2 MG/ML 1ML VIAL IV STA (18:42)
[2023-10-11] MEDS: MULTIVITAMINS/MINERALS THERAP 1 TAB PO SCH (18:42)
[2023-10-11] MEDS: THIAMINE 100 MG TAB PO SCH (18:42)
[2023-10-11] MEDS: OXAZEPAM 10MG CAP PO SCH (20:42)
[2023-10-11 21:38] LABS: VENOUS BASE EXCESS -12.4 (-2.0-2.0); VENOUS HCO3 13.8 MMOL/L (23.0-27.0); VENOUS O2 SATURATION 86.5 % (60.0-80.0); VENOUS PARTIAL PRESSURE O2 52.6 mmHg (30.0-50.0); VENOUS STANDARD HCO3 14.7 MMOL/L; VENOUS TOTAL CO2 14.8 MMOL/L (24.0-28.0)
[2023-10-11 22:07] LABS: CALCIUM LEVEL 7.8 MG/DL (8.3-10.6); CREATININE FOR GFR 1.44 MG/DL (0.70-1.30); GLOMERULAR FILTRATION RATE 53.3 (>49); POTASSIUM SERUM 5.5 MMOL/L (3.5-5.1)
[2023-10-11 22:17] LABS: FOLATE 15.2 NG/ML (>5.4)
[2023-10-11 22:30] VITALS: BP 129/59
[2023-10-11 22:31] VITALS: BP 129/58; TEMP 97.3; O2SAT 99
[2023-10-11 23:05] VITALS: BP 114/58; TEMP 97.6; O2SAT 98
[2023-10-12] VITALS (7 sets, daily range): BP systolic 128–150; BP diastolic 68–88; TEMP 96.9–98; O2SAT 97–100
[2023-10-12 05:15] LABS: VENOUS BASE EXCESS -4.4 (-2.0-2.0); VENOUS HCO3 20.6 MMOL/L (23.0-27.0); VENOUS O2 SATURATION 96.2 % (60.0-80.0); VENOUS PARTIAL PRESSURE CO2 37.5 mmHg (38.0-50.0); VENOUS PARTIAL PRESSURE O2 81.2 mmHg (30.0-50.0); VENOUS PH 7.357 UNITS (7.330-7.430); VENOUS STANDARD HCO3 20.8 MMOL/L; VENOUS TOTAL CO2 21.7 MMOL/L (24.0-28.0)
[2023-10-12 05:35] LABS: BASO % 0.8 % (0.0-1.0); EOS # 0.1 10^3/uL (0.0-0.5); EOS % 1.6 % (0.0-3.0); HEMATOCRIT 36.5 % (42.0-52.0); LYMPH # 0.5 10^3/uL (1.5-5.0); LYMPH % 13.3 % (24.0-44.0); MEAN CORPUSCULAR HEMOGLOBIN 32.5 pg (27.0-33.0); MEAN CORPUSCULAR HGB CONC 32.6 g/dl (32.0-36.5); MEAN CORPUSCULAR VOLUME 99.7 fl (80.0-96.0); MONO # 0.4 10^3/uL (0.0-0.8); MONO % 9.8 % (2.0-8.0); NEUTROPHILS # 2.7 10^3/uL (1.5-8.5); RED BLOOD COUNT 3.66 10^6/uL (4.30-6.10); WHITE BLOOD COUNT 3.7 10^3/uL (4.0-10.0)
[2023-10-12 05:36] LABS: HEMOGLOBIN 11.9 g/dl (13.5-17.5); PLATELET COUNT, AUTOMATED 137 10^3/uL (150-450)
[2023-10-12 05:50] LABS: ALBUMIN 3.3 G/DL (3.2-5.2); ALKALINE PHOSPHATASE 108 U/L (46-116); ALT/SGPT 54 U/L (7.0-40); AST/SGOT 72 U/L (<34); BILIRUBIN,TOTAL 2.2 MG/DL (0.3-1.2); BLOOD UREA NITROGEN 32 MG/DL (9-23); CALCIUM LEVEL 8.5 MG/DL (8.3-10.6); CARBON DIOXIDE LEVEL 22 MMOL/L (20-31); CHLORIDE LEVEL 106 MMOL/L (98-107); GLOMERULAR FILTRATION RATE > 60.0 (>49); GLUCOSE, FASTING 136 MG/DL (74-106); MAGNESIUM LEVEL 1.9 MG/DL (1.8-2.4); PHOSPHORUS LEVEL 2.1 MG/DL (2.4-5.1); POTASSIUM SERUM 4.4 MMOL/L (3.5-5.1); SODIUM LEVEL 137 MMOL/L (136-145); TOTAL PROTEIN 6.4 G/DL (5.7-8.2)
[2023-10-12] MEDS: PROCHLORPERAZINE 10MG 2ML VIAL IM ONE (20:08)
[2023-10-13 03:06] VITALS: BP 145/87; TEMP 97.1; O2SAT 97
[2023-10-13 06:20] VITALS: BP 141/88; TEMP 97; O2SAT 96
[2023-10-13 12:33] VITALS: BP 158/72; TEMP 98.2; O2SAT 95
[2023-10-13 16:53] LABS: BASO % 1.1 % (0.0-1.0); EOS # 0.1 10^3/uL (0.0-0.5); EOS % 3.8 % (0.0-3.0); HEMOGLOBIN 12.9 g/dl (13.5-17.5); LYMPH # 0.5 10^3/uL (1.5-5.0); LYMPH % 12.7 % (24.0-44.0); MEAN CORPUSCULAR HEMOGLOBIN 32.7 pg (27.0-33.0); MEAN CORPUSCULAR HGB CONC 33.1 g/dl (32.0-36.5); MONO # 0.2 10^3/uL (0.0-0.8); MONO % 6.5 % (2.0-8.0); NEUTROPHILS # 2.8 10^3/uL (1.5-8.5); NEUTROPHILS % 75.6 % (36.0-66.0); PLATELET COUNT, AUTOMATED 102 10^3/uL (150-450); RED BLOOD COUNT 3.94 10^6/uL (4.30-6.10); WHITE BLOOD COUNT 3.7 10^3/uL (4.0-10.0)
[2023-10-13 17:21] LABS: ALBUMIN 3.5 G/DL (3.2-5.2); ALKALINE PHOSPHATASE 134 U/L (46-116); ALT/SGPT 69 U/L (7.0-40); AST/SGOT 83 U/L (<34); BILIRUBIN,TOTAL 1.2 MG/DL (0.3-1.2); BLOOD UREA NITROGEN 18 MG/DL (9-23); CALCIUM LEVEL 9.4 MG/DL (8.3-10.6); CARBON DIOXIDE LEVEL 27 MMOL/L (20-31); CHLORIDE LEVEL 101 MMOL/L (98-107); CREATININE FOR GFR 0.78 MG/DL (0.70-1.30); GLOMERULAR FILTRATION RATE > 60.0 (>49); GLUCOSE, FASTING 180 MG/DL (74-106); POTASSIUM SERUM 3.8 MMOL/L (3.5-5.1); SODIUM LEVEL 133 MMOL/L (136-145); TOTAL PROTEIN 6.8 G/DL (5.7-8.2)
[2023-10-13] MEDS ORDERED: ONDANSETRON 4MG ORAL DISINTEGRATING TAB SL PRN (17:30)
[2023-10-13 20:18] VITALS: BP 158/90; TEMP 97.2; O2SAT 98
[2023-10-13 22:00] VITALS: BP 158/90
[2023-10-14 03:28] VITALS: BP 156/90; TEMP 96.8; O2SAT 95
[2023-10-14 06:39] LABS: BASO % 0.7 % (0.0-1.0); EOS # 0.1 10^3/uL (0.0-0.5); EOS % 4.3 % (0.0-3.0); HEMATOCRIT 37.2 % (42.0-52.0); HEMOGLOBIN 12.3 g/dl (13.5-17.5); LYMPH # 0.6 10^3/uL (1.5-5.0); LYMPH % 18.4 % (24.0-44.0); MEAN CORPUSCULAR HEMOGLOBIN 32.5 pg (27.0-33.0); MEAN CORPUSCULAR HGB CONC 33.1 g/dl (32.0-36.5); MEAN CORPUSCULAR VOLUME 98.2 fl (80.0-96.0); MONO # 0.1 10^3/uL (0.0-0.8); MONO % 4.3 % (2.0-8.0); NEUTROPHILS # 2.2 10^3/uL (1.5-8.5); RED BLOOD COUNT 3.79 10^6/uL (4.30-6.10); WHITE BLOOD COUNT 3.1 10^3/uL (4.0-10.0)
[2023-10-14 07:03] LABS: ALBUMIN 3.3 G/DL (3.2-5.2); ALKALINE PHOSPHATASE 118 U/L (46-116); ALT/SGPT 86 U/L (7.0-40); AST/SGOT 129 U/L (<34); BILIRUBIN,TOTAL 1.3 MG/DL (0.3-1.2); BLOOD UREA NITROGEN 15 MG/DL (9-23); CALCIUM LEVEL 8.9 MG/DL (8.3-10.6); CARBON DIOXIDE LEVEL 26 MMOL/L (20-31); CHLORIDE LEVEL 102 MMOL/L (98-107); CREATININE FOR GFR 0.88 MG/DL (0.70-1.30); GLOMERULAR FILTRATION RATE > 60.0 (>49); GLUCOSE, FASTING 116 MG/DL (74-106); POTASSIUM SERUM 3.5 MMOL/L (3.5-5.1); SODIUM LEVEL 134 MMOL/L (136-145); TOTAL PROTEIN 6.5 G/DL (5.7-8.2)
[2023-10-14 07:38] LABS: PLATELET COUNT, AUTOMATED 97 10^3/uL (150-450)
[2023-10-14 07:43] VITALS: BP 153/98; TEMP 97.1; O2SAT 96
[2023-10-14] MEDS: OMEPRAZOLE 20MG CAP PO SCH (08:49)
[2023-10-14] MEDS: VITAMIN D 1,000 INTERNATIONAL UNITS TABLET PO SCH (08:49)
[2023-10-14] MEDS: EZETIMIBE 10MG TABLET (ZETIA) PO SCH (08:49)
[2023-10-14 12:18] VITALS: BP 160/82; TEMP 96.6; O2SAT 99
[2023-10-14 19:56] VITALS: BP 133/90; TEMP 97.3; O2SAT 98
[2023-10-14] MEDS: ACETAMINOPHEN TAB 650MG DOSE (2X325MG) PO ONE (20:15)
[2023-10-14] MEDS: LIDOCAINE 5% (LIDODERM) PATCH TD ONE (20:16)
[2023-10-15] VITALS (7 sets, daily range): BP systolic 137–176; BP diastolic 80–105; TEMP 97.1–97.7; O2SAT 96–99
[2023-10-15] MEDS: ACETAMINOPHEN TAB 650MG DOSE (2X325MG) PO ONE (05:57)
[2023-10-15] MEDS: ramipriL 5 MG CAP PO SCH (20:18)
[2023-10-16 04:46] VITALS: BP 130/94; TEMP 97.5; O2SAT 99
[2023-10-16] MEDS: OXAZEPAM 10MG CAP PO ONE (08:24)
[2023-10-16] MEDS: ENOXAPARIN 40MG/0.4ML SYRINGE (J1650 PER 10MG) SC SCH (08:25)
[2023-10-16 12:00] VITALS: BP 129/86; TEMP 97.7; O2SAT 99
[2023-10-16] MEDS ORDERED: FOLI400T13 PO (12:54)
[2023-10-17 16:14] LABS: HEPATITIS B SURFACE ANTIGEN NEGATIVE (NEGATIVE)
[2023-10-17 16:33] LABS: HEPATITIS B CORE ANTIBODY IGM NEGATIVE (NEGATIVE)
[2023-10-17 16:34] LABS: HEPATITIS C VIRUS ABY INDEX < 0.02 INDEX (<0.8)
== END 2023-10-16 15:06 | disposition home or self-care (01) | DRG 641 ==
LOC: EDBD 07:46 → M ED 07:46 → M ED INP 17:26 → M PCU 22:21 → M MSPAV 10-15 14:51
PROVIDERS: ADMIT Family Medicine; ATTEND Internal Medicine
DX: E87.20 Acidosis, unspecified (principal); F10.27 Alcohol dependence with alcohol-induced persisting dementia; N17.9 Acute kidney failure, unspecified; F10.239 Alcohol dependence with withdrawal, unspecified; G40.909 Epilepsy, unspecified, not intractable, without status epilepticus; F10.26 Alcohol dependence with alcohol-induced persisting amnestic disorder; E78.5 Hyperlipidemia, unspecified; M17.0 Bilateral primary osteoarthritis of knee; M16.0 Bilateral primary osteoarthritis of hip; R74.01 Elevation of levels of liver transaminase levels; I10 Essential (primary) hypertension; K21.9 Gastro-esophageal reflux disease without esophagitis; E55.9 Vitamin D deficiency, unspecified; D69.6 Thrombocytopenia, unspecified; D64.9 Anemia, unspecified; I95.9 Hypotension, unspecified; K70.10 Alcoholic hepatitis without ascites; E87.5 Hyperkalemia; K76.0 Fatty (change of) liver, not elsewhere classified; Z87.820 Personal history of traumatic brain injury; Z79.899 Other long term (current) drug therapy; Z88.1 Allergy status to other antibiotic agents